=== PATIENT | male | born 1960 | race Hispanic/Latino ===

== ENCOUNTER 2018-04-06 01:51 | Inpatient (IN) | payer OTHER ==
[2018-04-06] MEDS ORDERED: NACL 0.9% 1000 ML 1,000 ML IV ONE ×2 (02:06→06:53)
[2018-04-06 02:20] LABS: Basophils # (Auto) 0.1 K/mm3 (0.0-0.1); Basophils % (Auto) 0.9 % (0.0-1.8); Eosinophils # (Auto) 0.2 K/mm3 (0.0-0.4); Eosinophils % (Auto) 1.7 % (0.0-4.3); Hematocrit 34.1 % (35.5-45.6); Hemoglobin 11.6 gm/dl (11.8-15.2); Lymphocytes # (Auto) 2.3 K/mm3 (1.2-5.4); Lymphocytes % (Auto) 19.5 % (13.4-35.0); Mean Corpuscular HGB Conc 34 % (32-34); Mean Corpuscular Hemoglobin 34 pg (28-32); Mean Corpuscular Volume 99 fl (84-94); Monocytes # (Auto) 0.9 K/mm3 (0.0-0.8); Monocytes % (Auto) 7.5 % (0.0-7.3); Platelet Count 244 K/mm3 (140-440); Red Blood Count 3.45 M/mm3 (3.65-5.03); Red Cell Distribution Width 13.7 % (13.2-15.2)
[2018-04-06 02:38] LABS: Albumin 3.7 g/dL (3.9-5)
--- NOTE | 2018-04-06 03:05 | Cat Scan Report ---
FINAL REPORT PROCEDURE: CT ABDOMEN PELVIS WO CON TECHNIQUE: Computerized axial tomography of the abdomen and pelvis was performed without intravenous contrast. This study is performed without intravascular contrast material and its sensitivity for abdominal and pelvic pathology, including neoplasms, inflammation, abscess, free fluid, thrombosis, arterial dissection and infarction, is reduced compared with a contrast enhanced study. HISTORY: abd pain epigastric pain thru to back COMPARISON: No prior studies are available for comparison. FINDINGS: Visualized lower thorax: No significant abnormality. Liver: Normal size and attenuation. Spleen: Normal size and attenuation. Gallbladder and biliary system: Normal. Pancreas: There is the peripancreatic edema indicating acute pancreatitis. There is peripancreatic adenopathy. There is no mass or abscess or pseudocyst.. Adrenals: Normal. Kidneys: There is a 2.3 centimeters cyst at the lower pole of the right kidney. There are no kidney stones. There is no hydronephrosis.. GI tract: There is no bowel obstruction, colitis or enteritis. There are diverticula of the sigmoid and left colon. The appendix is not identified.. Lymph nodes and mesentery: Normal. Vasculature: Normal. Bladder: Normal. Reproductive organs: Normal. Peritoneum: There is no ascites or free air, abscess or adenopathy. Musculoskeletal structures: No significant abnormality. Other: None. IMPRESSION: There is the peripancreatic edema indicating acute pancreatitis. There is peripancreatic adenopathy. There is no mass or abscess or pseudocyst.. There is a 2.3 centimeters cyst at the lower pole of the right kidney. There are no kidney stones. There is no hydronephrosis.. There is no bowel obstruction, colitis or enteritis. There are diverticula of the sigmoid and left colon. The appendix is not identified.. There is no ascites or free air, abscess or adenopathy. .
[2018-04-06 06:02] LABS: Bilirubin,Urine NEG (Negative); Blood,Urine NEG (Negative); Color,Urine Amber (Yellow); Hyaline Casts,Urine 7 /LPF
--- NOTE | 2018-04-06 06:49 | Emergency Department Report ---
ED Abdominal Pain HPI - General Chief Complaint: Abdominal Pain Stated Complaint: ABD PAIN Time Seen by Provider: 04/06/18 06:44 Source: patient Mode of arrival: Ambulatory Limitations: No Limitations - History of Present Illness Initial Comments: Patient is a 57-year-old male presents to emergency room with abdominal pain 4 days. Patient also complains of nausea and vomiting. Patient states she is not able to hold anything down. Patient states he is also having changes in his bowel frequency. Patient states he is constipated but had a bowel movement yesterday. Patient denies fever and chills. Patient denies chest pain shortness of breath. Patient states the abdominal pain is in his bilateral upper abdomen and is nonradiating. Patient states the pain is a 10 out of 10 Patient states he drinks alcohol daily MD Complaint: abdominal pain -: Sudden Location: LUQ, RUQ Radiation: none Migration to: no migration Severity: severe Severity scale (0 -10): 10 Quality: stabbing Consistency: constant Improves With: rest Worsens With: eating, vomiting, movement Associated Symptoms: nausea, vomiting, constipation. denies: diarrhea, fever, chills, dysuria, hematemesis, hematochezia, melena, hematuria, anorexia, syncope - Related Data Allergies Allergy/AdvReac Type Severity Reaction Status Date / Time No Known Allergies Allergy Unverified 08/21/14 12:00 ED Review of Systems ROS: Stated complaint: ABD PAIN Other details as noted in HPI Constitutional: denies: chills, fever Eyes: denies: eye pain, eye discharge, vision change ENT: denies: ear pain, throat pain Respiratory: denies: cough, shortness of breath, wheezing Cardiovascular: denies: chest pain, palpitations Endocrine: no symptoms reported Gastrointestinal: abdominal pain, nausea, vomiting, constipation. denies: diarrhea Genitourinary: denies: urgency, dysuria Musculoskeletal: denies: back pain, joint swelling, arthralgia Skin: denies: rash, lesions Neurological: denies: headache, weakness, paresthesias Psychiatric: denies: anxiety, depression Hematological/Lymphatic: denies: easy bleeding, easy bruising ED Past Medical Hx - Past Medical History Previous Medical History?: Yes Hx Hypertension: Yes Hx Diabetes: Yes Hx COPD: Yes Additional medical history: A-Fib, High CHO, Ilieus - Surgical History Past Surgical History?: Yes Hx Appendectomy: Yes Additional Surgical History: shoulder, elbow, foot - Social History Smoking Status: Current Every Day Smoker Substance Use Type: Alcohol ED Physical Exam - General Limitations: No Limitations General appearance: alert, in no apparent distress - Head Head exam: Present: atraumatic, normocephalic - Eye Eye exam: Present: normal appearance - ENT ENT exam: Present: mucous membranes moist - Neck Neck exam: Present: normal inspection - Respiratory Respiratory exam: Present: normal lung sounds bilaterally. Absent: respiratory distress - Cardiovascular Cardiovascular Exam: Present: regular rate, normal rhythm. Absent: systolic murmur, diastolic murmur, rubs, gallop - GI/Abdominal GI/Abdominal exam: Present: soft, tenderness (bilateral upper quadrant tenderness), normal bowel sounds - Rectal Rectal exam: Present: deferred - Extremities Exam Extremities exam: Present: normal inspection - Back Exam Back exam: Present: normal inspection - Neurological Exam Neurological exam: Present: alert, oriented X3 - Psychiatric Psychiatric exam: Present: normal affect, normal mood - Skin Skin exam: Present: warm, dry, intact, normal color. Absent: rash ED Course Vital Signs 04/06/18 04/06/18 02:00 09:53 Temperature 98.2 F 98.6 F Pulse Rate 111 H 100 H Respiratory 22 16 Rate Blood Pressure 136/89 Blood Pressure 123/87 [Left] O2 Sat by Pulse 96 100 Oximetry - Reevaluation(s) Reevaluation #1: Discussed all results with patient. Patient agrees with plan of care and admission. 04/06/18 07:11 - Consultations Consultation #1: Hospitalist consulted for admission. Hospitalist to admit patient. Bridge orders placed for hospitalist. Dr Aguilar to assume care. 04/06/18 07:08 ED Medical Decision Making - Lab Data Result diagrams: 04/06/18 02:10 04/06/18 02:10 - Radiology Data Radiology results: report reviewed PROCEDURE: CT ABDOMEN PELVIS WO CON TECHNIQUE: Computerized axial tomography of the abdomen and pelvis was performed without intravenous contrast. This study is performed without intravascular contrast material and its sensitivity for abdominal and pelvic pathology, including neoplasms, inflammation, abscess, free fluid, thrombosis, arterial dissection and infarction, is reduced compared with a contrast enhanced study. HISTORY: abd pain epigastric pain thru to back COMPARISON: No prior studies are available for comparison. FINDINGS: Visualized lower thorax: No significant abnormality. Liver: Normal size and attenuation. Spleen: Normal size and attenuation. Gallbladder and biliary system: Normal. Pancreas: There is the peripancreatic edema indicating acute pancreatitis. There is peripancreatic adenopathy. There is no mass or abscess or pseudocyst.. Adrenals: Normal. Kidneys: There is a 2.3 centimeters cyst at the lower pole of the right kidney. There are no kidney stones. There is no hydronephrosis.. GI tract: There is no bowel obstruction, colitis or enteritis. There are diverticula of the sigmoid and left colon. The appendix is not identified.. Lymph nodes and mesentery: Normal. Vasculature: Normal. Bladder: Normal. Reproductive organs: Normal. Peritoneum: There is no ascites or free air, abscess or adenopathy. Musculoskeletal structures: No significant abnormality. Other: None. IMPRESSION: There is the peripancreatic edema indicating acute pancreatitis. There is peripancreatic adenopathy. There is no mass or abscess or pseudocyst.. There is a 2.3 centimeters cyst at the lower pole of the right kidney. There are no kidney stones. There is no hydronephrosis.. There is no bowel obstruction, colitis or enteritis. There are diverticula of the sigmoid and left colon. The appendix is not identified.. There is no ascites or free air, abscess or adenopathy. . Transcribed By: CO Dictated By: MARIEL RAMOS MD Electronically Authenticated By: MARIEL RAMOS MD Signed Date/Time: 04/06/18 0304 - Medical Decision Making Patient is a 57-year-old gentleman presents to emergency room with intractable nausea vomiting and abdominal pain. Patient found by CT to have a acute pancreatitis. Patient to be admitted to the hospitalist service for further evaluation and treatment. As per patient, patient has an alcoholic drink every day. Tegretol is slightly secondary to alcohol. - Differential Diagnosis abdominal pain. Gastritis. pancreatitis. n/v Critical care attestation.: If time is entered above; I have spent that time in minutes in the direct care of this critically ill patient, excluding procedure time. ED Disposition Clinical Impression: Abdominal pain Qualifiers: Abdominal location: upper abdomen, unspecified Qualified Code(s): R10.10 - Upper abdominal pain, unspecified Acute pancreatitis Qualifiers: Pancreatitis type: alcohol induced Acute pancreatitis complication: unspecified Qualified Code(s): K85.20 - Alcohol induced acute pancreatitis without necrosis or infection Intractable nausea and vomiting Qualifiers: Vomiting type: unspecified Qualified Code(s): R11.2 - Nausea with vomiting, unspecified Disposition: 09 OP ADMIT IP TO THIS HOSP Is pt being admited?: Yes Does the pt Need Aspirin: No Condition: Serious Time of Disposition: 06:57
--- NOTE | 2018-04-06 07:21 | History and Physical Report ---
History of Present Illness Date of examination: 04/06/18 Date of admission: 04/06/18 Chief complaint: Abdominal pain History of present illness: Patient is a 57-year-old male with history of atrophy or fibrillation on eliquis , HTN, HLD, DM type 2 presents to emergency room with abdominal pain 4 days. along with nausea and vomiting. Patient states the abdominal pain is in his bilateral upper abdomen and is nonradiating. Patient states the pain is a 10 out of 10. Patient states he is not able to hold anything down. He admits to drinking vodka and beer daily. He states that he is also continue to smoke tobacco, but he is trying to quit. Patient denies fever and chills, chest pain shortness of breath. His symptom was progressively getting worse and he was unable to eat anything. He decided to come to ER for further evaluation. A CT scan of the abdomen and pelvis in the ER showed sinus for acute pancreatitis. He is getting admitted for further evaluation and management. Past medical History: h/o atrial fibrillation on eliquis, hypertension, diabetes mellitus type 2, hyperlipidemia, depression Past surgical History: s/p appendectomy Social History: Lives with family, + smoking, + drinking vodka and beer on daily basis. Denies any elicit drug abuse. Family History: Significant for father with alcoholic liver disease, mother had history of diabetes and heart failure. Review of System: Constitutional: no fever, no chills, no weight loss Ears, eyes, nose, mouth and throat: no nasal congestion, no nasal discharge, no sinus pressure, no vision change, no red eye. Neck: No neck pain or rigidity. Cardiovascular: No chest pain, no orthopnea, no palpitations, no leg swelling Respiratory: No shortness of breath, no cough, no congestion, no wheezing Gastrointestinal: + abdominal pain, + nausea, + vomiting Genitourinary : no dysuria, no hematuria Musculoskeletal: no joint swelling or muscle ache Integumentary: no rash, no pruritis Neurological: no parathesias, no numbness, no tingling Endocrine: no cold or heat intolerance, no polyuria or polydipsia Hematologic/Lymphatic: no easy bruising, no easy bleeding, no gland swelling Allergic/Immunologic: no urticaria, no angioedema. Medications and Allergies Allergies Allergy/AdvReac Type Severity Reaction Status Date / Time No Known Allergies Allergy Unverified 08/21/14 12:00 Active Meds: Active Medications Sodium Chloride (Nacl 0.9% 1000 Ml) 1,000 mls @ 999 mls/hr IV BOLUS ONE Stop: 04/06/18 07:53 Last Admin: 04/06/18 07:06 Dose: 999 mls/hr Exam - Constitutional Vitals: Temp Pulse Resp BP Pulse Ox 98.2 F 111 H 22 136/89 96 04/06/18 02:00 04/06/18 02:00 04/06/18 02:00 04/06/18 02:00 04/06/18 02:00 General appearance: Present: no acute distress, obese - EENT Eyes: Present: PERRL ENT: hearing intact, clear oral mucosa - Neck Neck: Present: supple, normal ROM - Respiratory Respiratory effort: normal Respiratory: bilateral: CTA - Cardiovascular Heart Sounds: Present: S1 & S2. Absent: rub, click - Extremities Extremities: pulses symmetrical, No edema Peripheral Pulses: within normal limits - Abdominal General gastrointestinal: Present: soft, non-distended, normal bowel sounds Localized gastrointestinal: tender: diffuse - Integumentary Integumentary: Present: clear, warm, dry - Musculoskeletal Musculoskeletal: gait normal, strength equal bilaterally - Psychiatric Psychiatric: appropriate mood/affect, intact judgment & insight - Neurologic Neurologic: CNII-XII intact, moves all extremities Results - Labs CBC & Chem 7: 04/06/18 02:10 04/06/18 02:10 Labs: Abnormal lab results 04/06/18 04/06/18 Range/Units 02:10 02:10 WBC 11.9 H (4.5-11.0) K/mm3 RBC 3.45 L (3.65-5.03) M/mm3 Hgb 11.6 L (11.8-15.2) gm/dl Hct 34.1 L (35.5-45.6) % MCV 99 H (84-94) fl MCH 34 H (28-32) pg [place] % (Auto) 7.5 H (0.0-7.3) % [place] # 0.9 H (0.0-0.8) K/mm3 Seg Neutrophils % 70.4 H (40.0-70.0) % Seg Neutrophils # 8.4 H (1.8-7.7) K/mm3 Sodium 125 L (137-145) mmol/L Chloride 87.5 L (98-107) mmol/L Carbon Dioxide 17 L (22-30) mmol/L BUN 21 H (9-20) mg/dL Creatinine 1.7 H (0.8-1.5) mg/dL Glucose 220 H (75-100) mg/dL Total Bilirubin 1.30 H (0.1-1.2) mg/dL AST 47 H (5-40) units/L Alkaline Phosphatase 251 H (35-129) units/L Albumin 3.7 L (3.9-5) g/dL Assessment and Plan Acute alcoholic pancreatitis Hyponatremia secondary to chronic alcohol ingestion Atrial fibrillation on and requests Alcohol abuse with dependency Tobacco Abuse Diabetes mellitus type 2 on oral hypoglycemic medications Hypertension, controlled with lisinopril Hyperlipidemia, on statin History of depression on Prozac - Admit the patient at medical unit - Continue aggressive IV fluid hydration, placed on alcohol withdrawal protocol - Continue to monitor serial BMP, resume home meds - SCD for DVT prophylaxis - Monitor blood glucose every 6 hours with sliding scale of insulin Radiological study: CT abdomen/pelvis: There is the peripancreatic edema indicating acute pancreatitis. There is peripancreatic adenopathy. There is no mass or abscess or pseudocyst.. There is a 2.3 centimeters cyst at the lower pole of the right kidney. There are no kidney stones. There is no hydronephrosis.. There is no bowel obstruction, colitis or enteritis. There are diverticula of the sigmoid and left colon. The appendix is not identified.. There is no ascites or free air, abscess or adenopathy.
[2018-04-06] MEDS ORDERED: DILAUDID IV ONE ×2 (07:25→07:27)
[2018-04-06] MEDS ORDERED: APRESOLINE IV PRN (07:27)
[2018-04-06] MEDS ORDERED: ZOFRAN IV PRN (07:27)
[2018-04-06] MEDS ORDERED: TYLENOL PO PRN (07:27)
[2018-04-06] MEDS ORDERED: ATIVAN IV PRN (07:44)
[2018-04-06] MEDS: D5NS 1,000 ML IV SCH ×2 (13:17→21:41)
[2018-04-06] MEDS: HumuLIN R SUB-Q SCH ×3 (13:18→17:54)
[2018-04-06] MEDS: ELIQUIS PO SCH (21:50)
[2018-04-06] MEDS ORDERED: LOVENOX SUB-Q SCH (22:00)
[2018-04-07] MEDS: HumuLIN R SUB-Q SCH ×5 (01:08→22:40)
[2018-04-07] MEDS: D5NS 1,000 ML IV SCH ×2 (05:44→13:12)
[2018-04-07 06:43] LABS: Basophils % (Auto) 0.5 % (0.0-1.8); Eosinophils # (Auto) 0.2 K/mm3 (0.0-0.4); Hemoglobin 10.9 gm/dl (11.8-15.2); Lymphocytes # (Auto) 1.4 K/mm3 (1.2-5.4); Lymphocytes % (Auto) 22.1 % (13.4-35.0); Mean Corpuscular HGB Conc 34 % (32-34); Mean Corpuscular Hemoglobin 34 pg (28-32); Mean Corpuscular Volume 98 fl (84-94); Monocytes # (Auto) 0.6 K/mm3 (0.0-0.8); Platelet Count 245 K/mm3 (140-440); Red Blood Count 3.25 M/mm3 (3.65-5.03); Red Cell Distribution Width 13.7 % (13.2-15.2)
[2018-04-07 07:17] LABS: Alanine Aminotransferase 34 units/L (7-56); Albumin 3.5 g/dL (3.9-5); BUN/Creatinine Ratio 13; Blood Urea Nitrogen 12 mg/dL (9-20); Calcium 9.4 mg/dL (8.4-10.2); Hemolysis Index 3
--- NOTE | 2018-04-07 08:09 | Progress Note ---
Assessment and Plan Assessment and plan: 57-year-old male with past medical history significant for alcohol abuse, A. fib on eliquis, diabetes mellitus presented to the emergency department complaining of upper abdominal pain, patient has been drinking alcohol, CT showed pancreatic edema suggestive of pancreatitis, elevated lipase level Acute pancreatitis - Was treated with IV fluids, bowel rest and pain control - Abdominal pain subsided, will start on liquid diet and advance as tolerated Alcohol abuse, alcohol withdrawal - On [facility] protocol - Nurse Practitioner Manager about cessation of alcohol A. fib - Continue eliquis Diabetes mellitus - Sliding-scale insulin Disposition - Continue inpatient care History Interval history: Patient was seen and evaluated this morning, abdominal pain subsided. Hospitalist Physical - Physical exam Narrative exam: Not in cardiopulmonary distress. The patient is obese. Vital signs as documented. Head exam is unremarkable. No scleral icterus . Neck is without jugular venous distension, thyromegaly, or carotid bruits. Lungs are clear to auscultation. Cardiac exam reveals regular rate and Rhythm. First and second heart sounds normal. No murmurs, rubs or gallops. Abdominal exam reveals soft nontender abdomen. Extremities are nonedematous and both femoral and pedal pulses are normal. FEATHER DUSTER WINDER: Alert and oriented 3. No focal weakness. - Constitutional Vitals: Temp Pulse Resp BP Pulse Ox 97.2 F L 102 H 18 111/33 97 04/07/18 06:12 04/07/18 06:12 04/07/18 06:12 04/07/18 06:12 04/07/18 06:12 General appearance: Present: no acute distress, obese Results - Labs CBC & Chem 7: 04/07/18 06:18 04/07/18 06:18 Labs: Laboratory Last Values WBC 6.3 K/mm3 (4.5-11.0) 04/07/18 06:18 RBC 3.25 M/mm3 (3.65-5.03) L 04/07/18 06:18 Hgb 10.9 gm/dl (11.8-15.2) L 04/07/18 06:18 Hct 32.0 % (35.5-45.6) L 04/07/18 06:18 MCV 98 fl (84-94) H 04/07/18 06:18 MCH 34 pg (28-32) H 04/07/18 06:18 MCHC 34 % (32-34) 04/07/18 06:18 RDW 13.7 % (13.2-15.2) 04/07/18 06:18 Plt Count 245 K/mm3 (140-440) 04/07/18 06:18 Lymph % (Auto) 22.1 % (13.4-35.0) 04/07/18 06:18 [place] % (Auto) 10.0 % (0.0-7.3) H 04/07/18 06:18 Eos % (Auto) 3.0 % (0.0-4.3) 04/07/18 06:18 Baso % (Auto) 0.5 % (0.0-1.8) 04/07/18 06:18 Lymph # 1.4 K/mm3 (1.2-5.4) 04/07/18 06:18 [place] # 0.6 K/mm3 (0.0-0.8) 04/07/18 06:18 Eos # 0.2 K/mm3 (0.0-0.4) 04/07/18 06:18 Baso # 0.0 K/mm3 (0.0-0.1) 04/07/18 06:18 Seg Neutrophils % 64.4 % (40.0-70.0) 04/07/18 06:18 Seg Neutrophils # 4.1 K/mm3 (1.8-7.7) 04/07/18 06:18 Sodium 136 mmol/L (137-145) L D 04/07/18 06:18 Potassium 4.2 mmol/L (3.6-5.0) 04/07/18 06:18 Chloride 98.9 mmol/L (98-107) 04/07/18 06:18 Carbon Dioxide 22 mmol/L (22-30) 04/07/18 06:18 Anion Gap 19 mmol/L 04/07/18 06:18 BUN 12 mg/dL (9-20) 04/07/18 06:18 Creatinine 0.9 mg/dL (0.8-1.5) 04/07/18 06:18 Estimated GFR > 60 ml/min 04/07/18 06:18 BUN/Creatinine Ratio 13 % 04/07/18 06:18 Glucose 171 mg/dL (75-100) H 04/07/18 06:18 POC Glucose 177 (70-105) H 04/07/18 00:47 Lactic Acid 1.00 mmol/L (0.7-2.0) 04/06/18 Unknown Calcium 9.4 mg/dL (8.4-10.2) 04/07/18 06:18 Phosphorus 3.40 mg/dL (2.5-4.5) 04/06/18 07:48 Magnesium 1.90 mg/dL (1.7-2.3) 04/06/18 07:48 Total Bilirubin 0.90 mg/dL (0.1-1.2) 04/07/18 06:18 AST 38 units/L (5-40) 04/07/18 06:18 ALT 34 units/L (7-56) 04/07/18 06:18 Alkaline Phosphatase 213 units/L (35-129) H 04/07/18 06:18 Total Protein 7.2 g/dL (6.3-8.2) 04/07/18 06:18 Albumin 3.5 g/dL (3.9-5) L 04/07/18 06:18 Albumin/Globulin Ratio 0.9 % 04/07/18 06:18 Lipase 381 units/L (13-60) H 04/06/18 Unknown Urine Color Rosalina (Yellow) 04/06/18 05:11 Urine Turbidity Slightly-cloudy (Clear) 04/06/18 05:11 Urine pH 5.0 (5.0-7.0) 04/06/18 05:11 Ur Specific [place] 1.022 (1.003-1.030) 04/06/18 05:11 Urine Protein 100 mg/dl mg/dL (Negative) 04/06/18 05:11 Urine Glucose (UA) >=500 mg/dL (Negative) 04/06/18 05:11 Urine Ketones Tr mg/dL (Negative) 04/06/18 05:11 Urine Blood Neg (Negative) 04/06/18 05:11 Urine Nitrite Neg (Negative) 04/06/18 05:11 Urine Bilirubin Neg (Negative) 04/06/18 05:11 Urine Urobilinogen 4.0 mg/dL (<2.0) 04/06/18 05:11 Ur Leukocyte Esterase Neg (Negative) 04/06/18 05:11 Urine WBC (Auto) 2.0 /HPF (0.0-6.0) 04/06/18 05:11 Urine RBC (Auto) 2.0 /HPF (0.0-6.0) 04/06/18 05:11 U Epithel Cells (Auto) < 1.0 /HPF (0-13.0) 04/06/18 05:11 Hyaline Casts 7 /LPF 04/06/18 05:11
[2018-04-07] MEDS: ELIQUIS PO SCH ×2 (12:28→21:04)
[2018-04-07] MEDS: PROzac PO SCH (12:29)
[2018-04-08] MEDS: D5NS 1,000 ML IV SCH (04:00)
[2018-04-08 07:24] VITALS: BP 146/88
[2018-04-08] MEDS: HumuLIN R SUB-Q SCH ×2 (08:56→12:47)
--- NOTE | 2018-04-08 10:36 | Discharge Summary ---
Providers - Providers Date of Admission: 04/06/18 07:09 Attending physician: ALEX BENAVIDEZ MD Primary care physician: CUBING MACHINE TENDER Hospitalization Reason for admission: Acute pancreatitis Condition: Serious Disposition: DC-01 TO HOME OR SELFCARE Time spent for discharge: 31 minutes - Discharge Diagnoses (1) Abdominal pain Status: Acute Qualifiers: Abdominal location: upper abdomen, unspecified Qualified Code(s): R10.10 - Upper abdominal pain, unspecified (2) Acute pancreatitis Status: Acute Qualifiers: Pancreatitis type: alcohol induced Acute pancreatitis complication: unspecified Qualified Code(s): K85.20 - Alcohol induced acute pancreatitis without necrosis or infection (3) Intractable nausea and vomiting Status: Acute Qualifiers: Vomiting type: unspecified Qualified Code(s): R11.2 - Nausea with vomiting , unspecified Core Measure Documentation - Palliative Care Palliative Care/ Comfort Measures: Not Applicable - Core Measures Any of the following diagnoses?: none Exam - Physical Exam Narrative exam: Not in cardiopulmonary distress. The patient is obese. Vital signs as documented. Head exam is unremarkable. No scleral icterus . Neck is without jugular venous distension, thyromegaly, or carotid bruits. Lungs are clear to auscultation. Cardiac exam reveals regular rate and Rhythm. First and second heart sounds normal. No murmurs, rubs or gallops. Abdominal exam reveals soft nontender abdomen. Extremities are nonedematous and both femoral and pedal pulses are normal. ANALYSIS DIRECTOR: Alert and oriented 3. No focal weakness. - Constitutional Vitals: Temp Pulse Resp BP Pulse Ox 97.5 F L 91 H 28 H 146/88 99 04/08/18 07:00 04/08/18 07:00 04/08/18 07:00 04/08/18 07:00 04/08/18 07:00 Plan Activity: no restrictions Weight Bearing Status: Full Weight Bearing Diet: low fat Additional Instructions: F/U at [facility] if no established clinic. Follow up with: PRIMARY MD WILLIE [Primary Care Provider] - 3-5 Days
[2018-04-08] MEDS: ELIQUIS PO SCH (11:32)
[2018-04-08] MEDS: PROzac PO SCH (11:33)
== END 2018-04-08 16:03 | disposition home or self-care (01) | DRG 439 ==
LOC: ED 01:51 → 3A 07:09
PROVIDERS: ADMIT Internal Medicine; ATTEND Internal Medicine
DX: K85.20 Alcohol induced acute pancreatitis without necrosis or infection (principal); E87.1 Hypo-osmolality and hyponatremia; I10 Essential (primary) hypertension; E11.9 Type 2 diabetes mellitus without complications; J44.9 Chronic obstructive pulmonary disease, unspecified; F17.200 Nicotine dependence, unspecified, uncomplicated; Z90.49 Acquired absence of other specified parts of digestive tract; E78.00 Pure hypercholesterolemia, unspecified; I48.91 Unspecified atrial fibrillation; Z83.3 Family history of diabetes mellitus; Z82.49 Family history of ischemic heart disease and other diseases of the circulatory system; Z84.89 Family history of other specified conditions; F10.20 Alcohol dependence, uncomplicated; Y90.9 Presence of alcohol in blood, level not specified; Z79.84 Long term (current) use of oral hypoglycemic drugs; F32.9 Major depressive disorder, single episode, unspecified; E78.5 Hyperlipidemia, unspecified
CPT/HCPCS: 36415; 74176; 80053; 81001; 82140; 82962; 83036; 83690; 83735; 84100; 85025; 96374; 99406; J1170; J1815; J7030; J7042

== ENCOUNTER 2019-03-29 12:24 | Inpatient (IN) | payer MEDICAID, MEDICARE, OTHER ==
[2019-03-29] MEDS ORDERED: NACL 0.9% 1000 ML 1,000 ML IV ONE (12:29)
[2019-03-29] MEDS ORDERED: MAGNESIUM SULFATE 2GM/50ML 2 GM/50 ML BAG IV ONE (12:29)
[2019-03-29] MEDS ORDERED: DUONEB *Not for PRN Use IH ONE (12:30)
[2019-03-29] MEDS ORDERED: MAXIPIME/NS 2 GM/100 ML 2 GM/100 ML BAG IV ONE (12:30)
--- NOTE | 2019-03-29 12:31 | Emergency Department Report ---
ED Shortness of Breath HPI - General Stated Complaint: PETRA/COPD Time Seen by Provider: 03/29/19 12:27 Source: patient, EMS Mode of arrival: Stretcher Limitations: No Limitations - History of Present Illness Initial Comments: Patient is a 58-year-old male that presents emergency room with complaints of shortness of breath. Patient states starting yesterday and are worsening. P atient states this became severe needed EMS. Patient states has history of COPD. Patient denies chest pain. Denies fever chills. Patient states she has a cough with sputum production. Patient states sputum is yellow. Report received from EMS: EMS states that the patient was initially 73% on room air and placed on CPAP. Patient was given Solu-Medrol IM and 10 mg of albuterol. After being placed on CPAP the patient's abdomen to 93%. MD Complaint: shortness of breath, cough -: Sudden Severity: severe Consistency: constant Improves With: oxygen, rest, bronchodilators Worsens With: exertion, coughing Known History Of: COPD Context: recent URI Associated Symptoms: cough, sputum production Treatments Prior to Arrival: oxygen, bronchodilator, other (medrol) - Related Data Home Oxygen Therapy: No Home Medications Medication Instructions Recorded Confirmed Last Taken No Known Home Medications [No 04/08/18 04/08/18 Unknown Reported Home Medications] Allergies Allergy/AdvReac Type Severity Reaction Status Date / Time No Known Allergies Allergy Unverified 08/21/14 12:00 ED Review of Systems ROS: Stated complaint: PETRA/COPD Other details as noted in HPI Constitutional: denies: chills, fever Eyes: denies: eye pain, eye discharge, vision change ENT: denies: ear pain, throat pain Respiratory: cough, shortness of breath, SOB with exertion, SOB at rest, wheezing Cardiovascular: denies: chest pain, palpitations Endocrine: no symptoms reported Gastrointestinal: denies: abdominal pain, nausea, diarrhea Genitourinary: denies: urgency, dysuria Musculoskeletal: denies: back pain, joint swelling, arthralgia Skin: denies: rash, lesions Neurological: denies: headache, weakness, paresthesias Psychiatric: denies: anxiety, depression Hematological/Lymphatic: denies: easy bleeding, easy bruising ED Past Medical Hx - Past Medical History Previous Medical History?: Yes Hx Hypertension: Yes Hx Congestive Heart Failure: No Hx Diabetes: Yes Hx Liver Disease: No Hx Renal Disease: No Hx Asthma: No Hx COPD: Yes Additional medical history: A-Fib, High CHO, Ilieus - Surgical History Past Surgical History?: Yes Hx Appendectomy: Yes Additional Surgical History: shoulder, elbow, foot - Family History Family history: no significant - Social History Smoking Status: Current Every Day Smoker Substance Use Type: Alcohol - Medications Home Medications: Home Medications Medication Instructions Recorded Confirmed Last Taken Type No Known Home Medications [No 04/08/18 04/08/18 Unknown History Reported Home Medications] ED Physical Exam - General Limitations: No Limitations General appearance: alert, in distress - Head Head exam: Present: atraumatic, normocephalic - Eye Eye exam: Present: normal appearance - ENT ENT exam: Present: mucous membranes moist - Neck Neck exam: Present: normal inspection - Respiratory Respiratory exam: Present: respiratory distress, wheezes, accessory muscle use, decreased breath sounds - Cardiovascular Cardiovascular Exam: Present: regular rate, normal rhythm. Absent: systolic murmur, diastolic murmur, rubs, gallop - GI/Abdominal GI/Abdominal exam: Present: soft, normal bowel sounds - Rectal Rectal exam: Present: deferred - Extremities Exam Extremities exam: Present: normal inspection - Back Exam Back exam: Present: normal inspection - Neurological Exam Neurological exam: Present: alert, oriented X3 - Psychiatric Psychiatric exam: Present: normal affect, normal mood - Skin Skin exam: Present: warm, dry, intact, normal color. Absent: rash ED Course Vital Signs 03/29/19 03/29/19 03/29/19 12:40 13:25 14:14 Temperature 97.8 F Pulse Rate 110 H 114 H Pulse Rate [ 106 H Anterior Bilateral Throughout] Respiratory 30 H 30 H Rate Respiratory 20 Rate [Anterior Bilateral Throughout] Blood Pressure 104/64 Blood Pressure 102/62 [Left] O2 Sat by Pulse 92 98 Oximetry 03/29/19 03/29/19 14:43 15:39 Temperature Pulse Rate 105 H 101 H Pulse Rate [ Anterior Bilateral Throughout] Respiratory 25 H 17 Rate Respiratory Rate [Anterior Bilateral Throughout] Blood Pressure 130/106 Blood Pressure 128/107 [Left] O2 Sat by Pulse 97 100 Oximetry - Reevaluation(s) Reevaluation #1: Initial evaluation done. Patient is currently on BiPAP by EMS, and given albuterol and Solu-Medrol. Patient is still wheezing was an increased work of breathing. Patient was placed on BiPAP here and given mag. 03/29/19 12:28 Reevaluation #2: Patient work to breathe has improved. Patient's wheezes have improved. 03/29/19 13:10 Patient removed his BiPAP and his saturations in the 80s. Patient's increased work of breathing. I advised patient to leave the BiPAP on 03/29/19 13:55 Reevaluation #3: I discussed all results with patient. Patient to be admitted to the ICU. Patient agrees with plan. Admission. Patient was admitted to the hospitalist service. Patient is still on BiPAP and his work of breathing has improved. Patient oxygen saturation is better. 03/29/19 15:14 - Consultations Consultation #1: [place] physician english composition instructor paged. 03/29/19 14:13 [place] physician english composition instructor states to keep the patient here due to patient's unstable to be transferred at this time. 03/29/19 14:17 Consultation #2: Hospital was consulted for admission. Hospitalist admit the patient. Bridge orders placed. 03/29/19 14:17 Consultation #3: Nephrology paged 03/29/19 14:18 I discussed case with nephrology and Dr Olivarez agrees with plan of care and admission. Nephrology states they will come see him 03/29/19 14:23 ED Medical Decision Making - Lab Data Result diagrams: 03/29/19 13:18 03/29/19 13:18 - EKG Data -: EKG Interpreted by Me EKG shows normal: sinus rhythm, axis, intervals, QRS complexes, ST-T waves Rate: tachycardia - Radiology Data Radiology results: image reviewed interpreted by me: No acute findings on chest x-ray - Medical Decision Making Patient is a 58-year-old male presents emergent for shortness of breath. Patient found COPD exacerbation. Patient had labs done and were consistent with acute renal failure. Nephrology consulted. Patient also found to have hyperkalemia and given hyperkalemia protocol. Patient shortness of breath or respiratory distress to improve with BiPAP and DuoNeb. Patient given antibi otics. Patient given Solu-Medrol and albuterol and placed on BiPAP by EMS prior to arrival. Patient found to be anemic. Patient admitted to the hospitalist service and to the ICU. - Differential Diagnosis shortness of breath. Respiratory distress. COPD exacerbation. Wheezing. Critical Care Time: Yes Critical care attestation.: If time is entered above; I have spent that time in minutes in the direct care of this critically ill patient, excluding procedure time. Critical Care Time: 45 minutes ED Disposition Clinical Impression: SOB (shortness of breath), Respiratory distress, Hypoxia, COPD exacerbation, Hyperkalemia Renal failure Qualifiers: Renal failure chronicity: acute Acute renal failure type: unspecified Qualified Code(s): N17.9 - Acute kidney failure, unspecified Disposition: DC-09 OP ADMIT IP TO THIS HOSP Is pt being admited?: Yes Does the pt Need Aspirin: No Condition: Critical Time of Disposition: 14:30
--- NOTE | 2019-03-29 13:02 | XRay Report ---
CHEST 1 VIEW INDICATION: Dyspnea. COMPARISON: None FINDINGS: Support devices: None. Heart: Within normal limits. Lungs/Pleura: No acute air space or interstitial disease. Additional findings: None. IMPRESSION: No acute findings. Signer Name: Alonzo Dawson Jr, MD Signed: 03/29/2019 12:58 PM Workstation Name: [id number]
[2019-03-29 13:36] LABS: Basophils # (Auto) 0.1 K/mm3 (0.0-0.1); Basophils % (Auto) 0.7 % (0.0-1.8); Eosinophils % (Auto) 0.6 % (0.0-4.3); Hematocrit 33.2 % (35.5-45.6); Hemoglobin 10.6 gm/dl (11.8-15.2); Lymphocytes # (Auto) 0.8 K/mm3 (1.2-5.4); Lymphocytes % (Auto) 9.4 % (13.4-35.0); Mean Corpuscular HGB Conc 32 % (32-34); Mean Corpuscular Volume 103 fl (84-94); Monocytes # (Auto) 0.7 K/mm3 (0.0-0.8); Monocytes % (Auto) 7.8 % (0.0-7.3); Platelet Count 274 K/mm3 (140-440); Red Blood Count 3.24 M/mm3 (3.65-5.03); Red Cell Distribution Width 15.5 % (13.2-15.2)
[2019-03-29 13:59] LABS: Creatine Kinase MB 17.6 ng/mL (0.0-4.0)
[2019-03-29 14:00] LABS: Albumin 3.9 g/dL (3.9-5); Calcium 8.7 mg/dL (8.4-10.2)
[2019-03-29] MEDS ORDERED: KIONEX PO ONE (14:08)
[2019-03-29] MEDS ORDERED: HumuLIN R IV ONE (14:08)
[2019-03-29] MEDS ORDERED: D50W (25GM) Syringe IV ONE (15:06)
[2019-03-29] MEDS ORDERED: D50W (25GM) Vial IV ONE (15:08)
[2019-03-29] MEDS ORDERED: CALCIUM CHLORIDE 1,000 MG in NACL 0.9% 100 ML IV ONE (15:08)
--- NOTE | 2019-03-29 15:16 | Consultation ---
History of Present Illness - Reason for Consult Consult date: 03/29/19 acute renal failure - History of Present Illness This is a 58 year old male who presents to the E.R with a chief complaint of shortness of breath that started yesterday and a productive cough with yellow sputum. On evaluation, patient was found to be Hypoxic by EMS with oxygen levels in the 70's. Patient was placed on Bipap. Pertinent labs revealed an elevated serum creatinine of 8.6 and an elevated potassium level of 6.6. Patient denies prior history of renal disease. Serum creatinine 04/07/18 was 0.9. Patient has history of Hypertension, DM, COPD and Afib. We are being consulted for management of this patient's Acute Renal Failure. Past History Past Medical History: atrial fib, COPD, diabetes, hypertension Past Surgical History: appendectomy, Other (elbow surgery) Social history: no significant social history Family history: no significant family history Medications and Allergies Allergies Allergy/AdvReac Type Severity Reaction Status Date / Time No Known Allergies Allergy Unverified 08/21/14 12:00 Home Medications Medication Instructions Recorded Confirmed Last Taken Type ALBUTEROL Inhaler (OR & NICU) 2 puff IH QID PRN 03/29/19 03/29/19 03/29/19 History [Proair] Apixaban [Eliquis] 5 mg PO BID 03/29/19 03/29/19 03/27/19 History AtorvaSTATin [Lipitor] 40 mg PO DAILY 03/29/19 03/29/19 03/27/19 History FLUoxetine HCL [Prozac] 10 mg PO QDAY 03/29/19 03/29/19 03/27/19 History Glimepiride [Amaryl] 2 mg PO BID 03/29/19 03/29/19 03/27/19 History Lisinopril [Zestril] 5 mg PO QDAY 03/29/19 03/29/19 03/27/19 History Metformin HCl [metFORMIN] 1,000 mg PO BID 03/29/19 03/29/19 03/29/19 History Pantoprazole [Protonix] 40 mg PO QDAY 03/29/19 03/29/19 03/27/19 History Tiotropium [place] [Spiriva 4 gm IH QDAY 03/29/19 03/29/19 Unknown History Respimat] Active Meds: Active Medications Calcium Chloride 1,000 mg/ (Sodium Chloride) 110 mls @ 660 mls/hr IV ONCE ONE Stop: 03/29/19 15:17 Last Admin: 03/29/19 14:49 Dose: 660 mls/hr Documented by: Review of Systems Constitutional: fatigue, no weight loss, no weight gain, no fever, no chills, no sweats Ears, nose, mouth and throat: no ear pain, no ear discharge, no tinnitis, no decreased hearing, no nose pain, no nasal congestion, no nasal discharge Cardiovascular: shortness of breath, no chest pain, no orthopnea, no palpitations, no syncope, no lightheadedness Respiratory: cough with sputum, shortness of breath, no hemoptysis, no congestion, no wheezing Gastrointestinal: no abdominal pain, no nausea, no vomiting, no diarrhea, no co nstipation Genitourinary Male: no dysuria, no hematuria, no flank pain, no discharge, no urinary frequency, no urinary hesitancy Rectal: no pain, no incontinence, no bleeding, no itching Musculoskeletal: no neck stiffness, no neck pain, no shooting arm pain, no arm numbness/tingling, no low back pain, no shooting leg pain Integumentary: no rash, no pruritis, no redness, no sores, no wounds, no jau ndice Neurological: no head injury, no transient paralysis, no paralysis, no weakness, no parathesias, no numbness, no tingling, no seizures Psychiatric: no anxiety, no memory loss, no change in sleep habits, no sleep disturbances, no insomnia, no hypersomnia Endocrine: no cold intolerance, no heat intolerance, no polyphagia, no excessive thirst, no polydipsia, no polyuria Exam - Vital Signs Vital signs: Vital Signs Pulse Resp BP Pulse Ox 110 H 30 H 102/62 97 03/29/19 12:40 03/29/19 12:40 03/29/19 12:40 03/29/19 12:40 - General Appearance General appearance: well-developed, obese, fatigue EENT: ATNC, PERRL, hearing intact, vision intact Neck: Present: neck supple, trachea midline Respiratory: Decreased Breath Sounds Heart: S1S2 Gastrointestinal: Present: normoactive bowel sounds Integumentary: warm and dry Neurologic: alert and oriented x3 Musculoskeletal: Present: other (mild edema) Results - Lab Results 03/29/19 13:18 03/29/19 13:18 Most recent lab results Calcium 8.7 mg/dL (8.4-10.2) 03/29/19 13:18 Assessment and Plan Assessment/Plan: Acute Renal Failure secondary to Prerenal vs ATN from Hypotension r/o obstruction: Hyperkalemia: Acidosis: COPD: -Renal function reviewed. Serum creatinine 8.6 today. Serum creatinine on 04/07 was 0.9. -Obtain renal ultrasound to r/o obstruction -Obtain urine lytes and eosinophils, further work-up pending results of protein labs -Hyperkalemia- received anti-potassium coctail and Kayexalate -CXR- showed no acute findings -Start IVF with D5W in 150 meq of Sodium Bicarbonate@ 75ml/hr -Obtain venous ph -Obtain daily weights -Monitor I/O's -Avoid nephrotoxic agents -No acute indication for HD at this time -Will monitor renal function closely
[2019-03-29] MEDS ORDERED: NACL 0.9% 1000 ML 1,000 ML ONE (15:21)
[2019-03-29] MEDS ORDERED: MAXIPIME/NS 1 GM/100 ML 1 GM/100 ML BAG IV ONE (15:27)
[2019-03-29] MEDS: SODIUM BICARBONATE 150 MEQ in D5W 1,000 ML IV SCH (17:10)
[2019-03-29] MEDS ORDERED: SOLU-Medrol IV ONE (18:50)
[2019-03-29] MEDS ORDERED: SOLU-Medrol ONE (18:52)
[2019-03-29 21:01] LABS: Hepatitis B Surface Antigen Non-Reactive (Negative); Hepatitis C Virus Antibody Non-Reactive (NonReactive)
[2019-03-29] MEDS ORDERED: ZOFRAN IV PRN (22:13)
[2019-03-29] MEDS ORDERED: IBUPROFEN PO PRN (22:13)
[2019-03-29] MEDS ORDERED: PROVENTIL IH PRN (22:15)
[2019-03-29] MEDS: PEPCID IV SCH (23:00)
[2019-03-29] MEDS ORDERED: CALCIUM GLUCONATE 2,000 MG in NACL 0.9% 100 ML IV ONE (23:00)
[2019-03-29] MEDS ORDERED: LEVAQUIN 750MG/150ML 750 MG/150 ML BAG IV ONE (23:00)
--- NOTE | 2019-03-29 23:01 | History and Physical Report ---
CHIEF COMPLAINT: Severe shortness of breath since yesterday. HISTORY OF PRESENT ILLNESS: A 58-year-old male with history of acute pancreatitis in the past and last year, hypertension, diabetes, COPD and atrial fibrillation, comes in for increasing shortness of breath since yesterday associated with severe wheezing. The patient also has cough productive of sputum, which is also yellow in color. When the EMS arrived, the patient's saturations were 73% on room air and was placed on CPAP and was given Solu-Medrol with some improvement. The patient continued to be hypoxic in the Emergency Room. The patient was given nebulizer treatments and CPAP with this oxygen levels improved to 93%. The patient is wheezing. No fever or chills. No known history of kidney failure. The patient's last BUN and creatinine in 03/2018 was normal 12 and 0.9. The patient does not see any kidney physician. No recent travel. The patient continues to smoke. PAST MEDICAL HISTORY: Significant for hypertension, COPD, atrial fibrillation, ileus, acute pancreatitis, which has resolved. Alcohol dependence in the past. FAMILY HISTORY: Hypertension. SOCIAL HISTORY: Current everyday smoker. PAST SURGICAL HISTORY: Shoulder surgery, elbow surgery and foot surgery. Appendectomy in the past. REVIEW OF SYSTEMS: Significant for severe shortness of breath and wheezing and low oxygen saturations. Otherwise, review of systems negative. PHYSICAL EXAMINATION: GENERAL: Late middle-aged male, cooperative during examination, in severe respiratory distress. VITAL SIGNS: Blood pressure is 120/51, temperature is 98.7, pulse is 108 and respirations are 25. HEENT: Unremarkable. Pupils are equal and reactive. NECK: Supple, no lymphadenopathy, no thyromegaly. LUNGS: Diminished air entry and decreased air entry bilaterally. Bilateral rhonchi present, inspiratory and expiratory. CARDIOVASCULAR: S1, S2 heard. No gallop, no murmur, no rub. Apical impulse in left fifth intercostal space and midclavicular line. ABDOMEN: Soft and benign. No hepatosplenomegaly. No guarding, no rigidity. Hernial orifices are normal. EXTREMITIES: Good pedal pulses. No pedal edema. CENTRAL NERVOUS SYSTEM: Alert and oriented x 4, nonfocal exam. SKIN: Normal. LABORATORY DATA: White count is 8600, H and H is 10.6 and 33.2 and platelet count is 274,000. ABG significant for pH of 7.122, pCO2 of 45.4, pO2 of 96, bicarbonate of 14.8 and O2 sats are 94%. Sodium is 132, potassium is 6.6, BUN and creatinine is 73 and 8.6, alkaline phosphatase is 136, creatinine kinase is 2408. CK is 17.6. Hepatitis profile is nonreactive. Abdominal CAT scan is done in 2018 shows acute pancreatitis. Electrocardiogram shows sinus tachycardia, heart rate of 107 per minute. No acute ST-T wave changes. Chest x-ray shows no acute findings. ASSESSMENT AND PLAN: 1. Acute respiratory failure. The patient is on CPAP. DuoNebs round the clock and albuterol p.r.n. Also, Pulmicort, and budesonide. IV Solu-Medrol 125 q. 8 hours and IV Levaquin q. 48 hours because of increased creatinine. Intubation if necessary. Manager Support/pulmonary consult requested. Renal consult requested. 2. Chronic obstructive pulmonary disease exacerbation. The patient continues to smoke, IV Solu-Medrol, DuoNeb and IV antibiotics started. The patient is on CPAP. Intubation if necessary. 3. Acute kidney injury. The patient's baseline creatinine is 0.9 one year ago. No intervening labs. Now, the patient presents with a high creatinine of around 8.6 and BUN of 73. Potassium was 6.6. The patient has acute kidney injury, etiology unclear. IV fluids and Nephrology consult requested. 4. Hyperkalemia, treated with Kayexalate, calcium gluconate, IV insulin and D50W and sodium bicarbonate. 5. Type 2 diabetes, coverage for now. Rhabdomyolysis, mild. IV fluids for now. Hepatitis profile negative. 6. Deep venous thrombosis prophylaxis, heparin 5000 q. 12 hours. Critical care time is 40 minutes. CRITICAL CARE STATEMENT: The high probability of a clinically significant sudden or life-threatening deterioration of the pulmonary, cardiac, renal systems required my full and direct attention, intervention, and personal management. The aggregate critical care time was 40 minutes. This time is in addition to time spent performing reported procedures, but includes the following, data review and interpretation, the patient assessment and monitoring of vital signs, documentation, medication orders and management. JOB# [id number] CLAY/MARLO HARO
[2019-03-30] MEDS ORDERED: LEVAQUIN 750MG/150ML 750 MG/150 ML BAG IV ONE (04:00)
[2019-03-30] MEDS: SOLU-Medrol IV SCH ×4 (06:00→20:54)
[2019-03-30] MEDS: DUONEB *Not for PRN Use IH SCH ×4 (07:45→20:01)
[2019-03-30] MEDS: SODIUM BICARBONATE 150 MEQ in D5W 1,000 ML IV SCH ×2 (09:00→23:15)
[2019-03-30] MEDS: PEPCID IV SCH ×2 (09:57→21:04)
[2019-03-30] MEDS: SODIUM CHLORIDE FLUSH SYRINGE 10 ML IV SCH ×2 (10:00→21:04)
--- NOTE | 2019-03-30 10:08 | Ultrasound Report ---
ULTRASOUND RENAL INDICATION: renal failure. COMPARISON: No relevant prior imaging study available. FINDINGS: RIGHT KIDNEY: Size: 12.4 cm. Echogenicity: Normal. Cortical thickness: Normal. Hydronephrosis: None. Cyst or mass: None. Stones: None. LEFT KIDNEY: Size: 10.8 cm. Echogenicity: Normal. Cortical thickness: Normal. Hydronephrosis: None. Cyst or mass: None. Stones: None. Urinary bladder appears within normal limits Free Fluid: None. Additional Findings: None. IMPRESSION 1. No acute sonographic abnormality of the kidneys. Signer Name: Alex Lopez MD Signed: 03/30/2019 10:03 AM Workstation Name: [id number]
[2019-03-30 10:31] LABS: Basophils % (Auto) 0.3 % (0.0-1.8); Eosinophils % (Auto) 0.5 % (0.0-4.3); Hematocrit 31.8 % (35.5-45.6); Hemoglobin 10.5 gm/dl (11.8-15.2); Lymphocytes # (Auto) 0.5 K/mm3 (1.2-5.4); Lymphocytes % (Auto) 8.1 % (13.4-35.0); Mean Corpuscular HGB Conc 33 % (32-34); Mean Corpuscular Volume 100 fl (84-94); Monocytes # (Auto) 0.2 K/mm3 (0.0-0.8); Monocytes % (Auto) 3.1 % (0.0-7.3); Platelet Count 240 K/mm3 (140-440); Red Blood Count 3.17 M/mm3 (3.65-5.03); Red Cell Distribution Width 15.1 % (13.2-15.2)
[2019-03-30 10:35] LABS: Bilirubin,Urine NEG (Negative); Blood,Urine SM (Negative); Color,Urine Yellow (Yellow); Mucus,Urine FEW /HPF; Protein,Urine <15 mg/dL mg/dL (Negative); Urobilinogen,Urine < 2.0 mg/dL (<2.0)
[2019-03-30 10:43] LABS: Benzodiazepines Screen,Urine PRESUMPTIVE NEGATIVE; Cannabinoid Screen,Urine PRESUMPTIVE NEGATIVE; Cocaine Screen,Urine PRESUMPTIVE NEGATIVE; Methadone Screen,Urine PRESUMPTIVE NEGATIVE; Opiate Screen,Urine PRESUMPTIVE NEGATIVE
[2019-03-30 10:44] LABS: Calcium 9.2 mg/dL (8.4-10.2)
[2019-03-30 10:47] LABS: Creatinine,Urine 230.8 mg/dL (0.1-20.0)
[2019-03-30 10:48] LABS: Creatinine,Urine 227.1 mg/dL (0.1-20.0); Protein/Creatinine Ratio,Urine 0.14
[2019-03-30] MEDS ORDERED: KIONEX PO NR (10:55)
[2019-03-30] MEDS ORDERED: CALCIUM GLUCONATE 2,000 MG in NACL 0.9% 100 ML IV ONE (10:55)
[2019-03-30 10:59] LABS: Amphetamine Screen,Urine PRESUMPTIVE POSITIVE
--- NOTE | 2019-03-30 12:21 | Consultation ---
History of Present Illness Reason for consult: dyspnea, COPD History of present illness: This is a 58 yo male w history of COPD HUMA followed by Martinez, who comes in w sob. He reports that he has had a progressive worsening of his symptoms associated w productive cough. He is not o2 dependent. He reports that he takes combivent as rescue and spiriva daily. He also reports a hx of HUMA but has not been using cpap because he is claustrophobic He reports that he has frequent exacerbations, treated as outpt. No reports of intubation He reorts weakness which has been ongoing for a few yrs Past History Past Medical History: atrial fib, COPD, diabetes, hypertension Past Surgical History: appendectomy, Other (elbow surgery) Social history: no significant social history Family history: no significant family history Medications and Allergies Allergies Allergy/AdvReac Type Severity Reaction Status Date / Time No Known Allergies Allergy Unverified 08/21/14 12:00 Home Medications Medication Instructions Recorded Confirmed Last Taken Type ALBUTEROL Inhaler (OR & NICU) 2 puff IH QID PRN 03/29/19 03/29/19 03/29/19 His tory [Proair] Apixaban [Eliquis] 5 mg PO BID 03/29/19 03/29/19 03/27/19 History AtorvaSTATin [Lipitor] 40 mg PO DAILY 03/29/19 03/29/19 03/27/19 History FLUoxetine HCL [Prozac] 10 mg PO QDAY 03/29/19 03/29/19 03/27/19 History Glimepiride [Amaryl] 2 mg PO BID 03/29/19 03/29/19 03/27/19 History Lisinopril [Zestril] 5 mg PO QDAY 03/29/19 03/29/19 03/27/19 History Metformin HCl [metFORMIN] 1,000 mg PO BID 03/29/19 03/29/19 03/29/19 History Pantoprazole [Protonix] 40 mg PO QDAY 03/29/19 03/29/19 03/27/19 History Tiotropium [place] [Spiriva 4 gm IH QDAY 03/29/19 03/29/19 Unknown History Respimat] Active Meds: Active Medications Acetaminophen (Tylenol) 650 mg PO Q4H PRN PRN Reason: Pain MILD(1-3)/Fever >100.5/ARIAS Albuterol (Proventil) 2.5 mg IH Q4HRT PRN PRN Reason: Shortness Of Breath Albuterol/Ipratropium (Duoneb *Not For Prn Use*) 1 ampul IH QIDRT [facility] Last Admin: 03/30/19 07:45 Dose: 1 ampul Documented by: Famotidine (Pepcid) 10 mg IV BID [facility] Last Admin: 03/30/19 09:57 Dose: 10 mg Documented by: Hydromorphone HCl (Dilaudid) 0.5 mg IV Q3H PRN PRN Reason: Pain , Severe (7-10) Last Admin: 03/30/19 00:00 Dose: 0.5 mg Documented by: Sodium Bicarbonate 150 meq/ (Dextrose) 1,150 mls @ 75 mls/hr IV DIRECT [facility] Last Infusion: 03/30/19 02:45 Dose: Infused Documented by: Levofloxacin/Dextrose (Levaquin 500mg/100ml) 500 mg in 100 mls @ 100 mls/hr IV Q48H [facility] Methylprednisolone Sodium Succinate (Solu-Medrol) 125 mg IV Q8HR [facility] Last Admin: 03/30/19 00:00 Dose: 125 mg Documented by: Metoclopramide HCl (Reglan) 5 mg IV Q6H PRN PRN Reason: Nausea And Vomiting Ondansetron HCl (Zofran) 4 mg IV Q8H PRN PRN Reason: Nausea And Vomiting Sodium Chloride (Sodium Chloride Flush Syringe 10 Ml) 10 ml IV BID [facility] Last Admin: 03/30/19 10:00 Dose: 10 ml Documented by: Sodium Chloride (Sodium Chloride Flush Syringe 10 Ml) 10 ml IV PRN PRN PRN Reason: LINE FLUSH Sodium Polystyrene Sulfonate (Kionex) 60 gm PO ONCE NR Stop: 03/30/19 12:55 Last Admin: 03/30/19 11:59 Dose: 60 gm Documented by: Review of Systems Ears, nose, mouth and throat: nasal congestion, nasal discharge Respiratory: cough with sputum, shortness of breath, dyspnea on exertion, congestion, wheezing, snoring, sleep apnea, respiratory infections Musculoskeletal: morning stiffness, arthritis, other (weakness- generalized) Physical Examination Vital signs: Vital Signs Pulse Resp BP Pulse Ox 110 H 30 H 102/62 97 03/29/19 12:40 03/29/19 12:40 03/29/19 12:40 03/29/19 12:40 General appearance: no acute distress, other (obesed) Eyes: non-icteric ENT: oropharynx moist Neck: supple Ascultation: Bilateral: wheezes Percussion: Bilateral: not dull Cardiovascular: regular rate and rhythm Gastrointestinal: normoactive bowel sounds, soft, non-distended, other (obese) Integumentary: normal Extremities: no cyanosis non-focal exam mood appropriate Results - Laboratory Findings CBC and BMP: 03/30/19 10:12 03/30/19 10:12 ABG POC ABG pH 7.143 (7.35-7.45) L 03/30/19 05:58 POC ABG pCO2 50.5 (35-45) H 03/30/19 05:58 POC ABG pO2 159 (80-105) H 03/30/19 05:58 POC ABG HCO3 17.3 (22-26 mml/L) 03/30/19 05:58 POC ABG Total CO2 19 (23-27mmol/L) 03/30/19 05:58 POC ABG O2 Sat 99 03/30/19 05:58 Abnormal lab findings: Abnormal Labs 03/29/19 03/29/19 03/29/19 13:18 13:18 18:22 RBC 3.24 L Hgb 10.6 L Hct 33.2 L MCV 103 H MCH 33 H RDW 15.5 H Lymph % (Auto) 9.4 L [place] % (Auto) 7.8 H Lymph # 0.8 L Seg Neutrophils % 81.5 H POC ABG pH 7.122 L POC ABG pCO2 45.4 H POC ABG pO2 Sodium 132 L Potassium 6.6 H* Chloride 94.9 L Carbon Dioxide 14 L BUN 73 H Creatinine 8.6 H Glucose POC Glucose Hemoglobin A1c Phosphorus AST 48 H Alkaline Phosphatase 136 H Total Creatine Kinase 2408 H CK-MB (CK-2) 17.6 H Urine Creatinine Urine Total Protein 03/29/19 03/30/19 03/30/19 23:37 05:58 10:00 RBC Hgb Hct MCV MCH RDW Lymph % (Auto) [place] % (Auto) Lymph # Seg Neutrophils % POC ABG pH 7.143 L POC ABG pCO2 50.5 H POC ABG pO2 159 H Sodium Potassium Chloride Carbon Dioxide BUN Creatinine Glucose POC Glucose Hemoglobin A1c 6.4 H Phosphorus AST Alkaline Phosphatase Total Creatine Kinase CK-MB (CK-2) Urine Creatinine 227.1 H Urine Total Protein 31 H 03/30/19 03/30/19 03/30/19 10:00 10:12 10:12 RBC 3.17 L Hgb 10.5 L Hct 31.8 L MCV 100 H MCH 33 H RDW Lymph % (Auto) 8.1 L [place] % (Auto) Lymph # 0.5 L Seg Neutrophils % 88.0 H POC ABG pH POC ABG pCO2 POC ABG pO2 Sodium 132 L Potassium 6.6 H* Chloride 91.9 L Carbon Dioxide 19 L BUN 89 H Creatinine 7.2 H Glucose 302 H POC Glucose Hemoglobin A1c Phosphorus 7.50 H AST Alkaline Phosphatase Total Creatine Kinase CK-MB (CK-2) Urine Creatinine 230.8 H Urine Total Protein 32 H 03/30/19 11:42 RBC Hgb Hct MCV MCH RDW Lymph % (Auto) [place] % (Auto) Lymph # Seg Neutrophils % POC ABG pH POC ABG pCO2 POC ABG pO2 Sodium Potassium Chloride Carbon Dioxide BUN Creatinine Glucose POC Glucose 275 H Hemoglobin A1c Phosphorus AST Alkaline Phosphatase Total Creatine Kinase CK-MB (CK-2) Urine Creatinine Urine Total Protein - Diagnostic Findings Chest x-ray: report reviewed, image reviewed Assessment and Plan - Patient Problems (1) HUMA on CPAP Current Visit: Yes Status: Acute (2) HUMA treated with BiPAP Current Visit: Yes Status: Acute (3) Acute bronchitis Current Visit: Yes Status: Acute (4) COPD exacerbation Current Visit: Yes Status: Acute (5) Hyperkalemia Current Visit: Yes Status: Acute (6) Hypoxia Current Visit: Yes Status: Acute (7) Renal failure Current Visit: Yes Status: Acute Qualifiers: Renal failure chronicity: acute Acute renal failure type: unspecified Qualified Code(s): N17.9 - Acute kidney failure, unspecified (8) SOB (shortness of breath) Current Visit: Yes Status: Acute (9) Obesity due to excess calories with serious comorbidity Current Visit: Yes Status: Acute (10) Acute respiratory failure Current Visit: Yes Status: Acute (11) Acute respiratory acidosis Current Visit: Yes Status: Acute
--- NOTE | 2019-03-30 12:57 | Progress Note ---
Assessment and Plan Acute Renal Failure secondary to Prerenal vs ATN from Hypotension, no obstruction: Hyperkalemia: High Anion Gap Metabolic Acidosis: Hyperphosphatemia COPD Exacerbation HUMA -Renal function reviewed, SCr level was 7.2 today, yesterday's SCr level was 8.6 -No acute indication for initiation of HD today, but if no significant improvement in renal function, pt will need to be initiated on HD -Assess need for HD on daily basis -S/p kayexalate 60 mg x 1 and calcium gluconate for hyperkalemia management -On D5W in 150 mEq of Sodium Bicarbonate infusion at 75 ml/hr -Repeat BMP at 1400 ordered -Renal US showed no hydronephrosis -Urine eosinophils negative -UA showed small blood, no significant rbc and urine studies showed no significant proteinuria -CXR showed no acute findings -On renal diet -Needs strict intake and output -Rivers Catheter: No -Avoid nephrotoxic agents -Renal plan d/w Dr Olivarez Subjective Date of service: 03/30/19 Interval history: Pt seen in ICU bed, states breathing ok, pt states his shortness of breath is around baseline for him, pt s/p breathing treatment. No family at bedside Objective - Vital Signs Vital signs: Vital Signs - 12hr 03/30/19 03/30/19 03/30/19 03:18 03:20 03:30 Temperature Pulse Rate 106 H 103 H 103 H Pulse Rate [ Anterior Bilateral Throughout] Respiratory 17 17 16 Rate Respiratory Rate [Anterior Bilateral Throughout] Blood Pressure O2 Sat by Pulse 98 98 98 Oximetry 03/30/19 03/30/19 03/30/19 03:40 03:50 03:52 Temperature 98.6 F Pulse Rate 103 H 100 H Pulse Rate [ Anterior Bilateral Throughout] Respiratory 14 13 Rate Respiratory Rate [Anterior Bilateral Throughout] Blood Pressure O2 Sat by Pulse 98 97 Oximetry 03/30/19 03/30/19 03/30/19 04:00 04:10 04:20 Temperature Pulse Rate 101 H 99 H 98 H Pulse Rate [ Anterior Bilateral Throughout] Respiratory 13 12 12 Rate Respiratory Rate [Anterior Bilateral Throughout] Blood Pressure 105/64 105/64 105/64 O2 Sat by Pulse 96 98 98 Oximetry 03/30/19 03/30/19 03/30/19 04:30 04:40 04:50 Temperature Pulse Rate 102 H 104 H 104 H Pulse Rate [ Anterior Bilateral Throughout] Respiratory 15 15 17 Rate Respiratory Rate [Anterior Bilateral Throughout] Blood Pressure 105/64 105/64 105/64 O2 Sat by Pulse 97 97 98 Oximetry 03/30/19 03/30/19 03/30/19 05:00 05:10 05:20 Temperature Pulse Rate 102 H 101 H 100 H Pulse Rate [ Anterior Bilateral Throughout] Respiratory 11 L 13 13 Rate Respiratory Rate [Anterior Bilateral Throughout] Blood Pressure 128/73 128/73 128/73 O2 Sat by Pulse 97 97 97 Oximetry 03/30/19 03/30/19 03/30/19 05:30 05:40 05:48 Temperature Pulse Rate 100 H 99 H Pulse Rate [ Anterior Bilateral Throughout] Respiratory 12 12 24 Rate Respiratory Rate [Anterior Bilateral Throughout] Blood Pressure 128/73 128/73 O2 Sat by Pulse 97 97 Oximetry 03/30/19 03/30/19 03/30/19 05:50 05:58 06:00 Temperature Pulse Rate 102 H 105 H 112 H Pulse Rate [ Anterior Bilateral Throughout] Respiratory 17 28 H 26 H Rate Respiratory Rate [Anterior Bilateral Throughout] Blood Pressure 128/73 128/73 O2 Sat by Pulse 98 98 90 Oximetry 03/30/19 03/30/19 03/30/19 06:10 06:20 06:30 Temperature Pulse Rate 113 H 119 H 108 H Pulse Rate [ Anterior Bilateral Throughout] Respiratory 19 25 H 22 Rate Respiratory Rate [Anterior Bilateral Throughout] Blood Pressure 126/100 126/100 126/100 O2 Sat by Pulse 89 87 90 Oximetry 03/30/19 03/30/19 03/30/19 06:40 06:50 07:00 Temperature Pulse Rate 109 H 105 H 109 H Pulse Rate [ Anterior Bilateral Throughout] Respiratory 23 16 17 Rate Respiratory Rate [Anterior Bilateral Throughout] Blood Pressure 126/100 126/100 139/73 O2 Sat by Pulse 96 90 89 Oximetry 03/30/19 03/30/19 03/30/19 07:10 07:20 07:30 Temperature Pulse Rate 110 H 104 H 103 H Pulse Rate [ Anterior Bilateral Throughout] Respiratory 17 15 15 Rate Respiratory Rate [Anterior Bilateral Throughout] Blood Pressure 139/73 139/73 139/73 O2 Sat by Pulse 86 87 85 Oximetry 03/30/19 03/30/19 03/30/19 07:40 07:48 07:50 Temperature Pulse Rate 103 H 99 H Pulse Rate [ 103 H Anterior Bilateral Throughout] Respiratory 21 14 Rate Respiratory 13 Rate [Anterior Bilateral Throughout] Blood Pressure 139/73 139/73 O2 Sat by Pulse 92 96 Oximetry 03/30/19 03/30/19 03/30/19 07:51 08:00 08:10 Temperature 97.9 F Pulse Rate 99 H 101 H Pulse Rate [ Anterior Bilateral Throughout] Respiratory 15 22 Rate Respiratory Rate [Anterior Bilateral Throughout] Blood Pressure 141/77 141/77 O2 Sat by Pulse 95 96 97 Oximetry 03/30/19 03/30/19 03/30/19 08:20 08:30 08:40 Temperature Pulse Rate 106 H 112 H 109 H Pulse Rate [ Anterior Bilateral Throughout] Respiratory 18 20 12 Rate Respiratory Rate [Anterior Bilateral Throughout] Blood Pressure 141/77 141/77 141/77 O2 Sat by Pulse 98 96 93 Oximetry 03/30/19 03/30/19 03/30/19 08:50 09:00 09:10 Temperature Pulse Rate 103 H 108 H 106 H Pulse Rate [ Anterior Bilateral Throughout] Respiratory 22 27 H 23 Rate Respiratory Rate [Anterior Bilateral Throughout] Blood Pressure 141/77 140/62 140/62 O2 Sat by Pulse 92 92 95 Oximetry 03/30/19 03/30/19 03/30/19 09:20 09:30 09:40 Temperature Pulse Rate 104 H 104 H 108 H Pulse Rate [ Anterior Bilateral Throughout] Respiratory 16 17 16 Rate Respiratory Rate [Anterior Bilateral Throughout] Blood Pressure 140/62 140/62 140/62 O2 Sat by Pulse 93 93 93 Oximetry 03/30/19 03/30/19 03/30/19 09:48 09:50 10:00 Temperature Pulse Rate 104 H 102 H Pulse Rate [ Anterior Bilateral Throughout] Respiratory 19 17 20 Rate Respiratory Rate [Anterior Bilateral Throughout] Blood Pressure 140/62 135/66 O2 Sat by Pulse 93 93 Oximetry 03/30/19 12:00 Temperature 97.5 F L Pulse Rate Pulse Rate [ Anterior Bilateral Throughout] Respiratory Rate Respiratory Rate [Anterior Bilateral Throughout] Blood Pressure O2 Sat by Pulse Oximetry - General Appearance General appearance: well-developed EENT: ATNC Neck: no JVD Respiratory: Present: Decreased Breath Sounds Cardiology: regular, S1S2 Gastrointestinal: normoactive bowel sounds, no tenderness Integumentary: warm and dry Neurologic: alert and oriented x3 Musculoskeletal: other (trace edema to BLE) Psychiatric: mood/affect appropriate, cooperative - Lab 03/30/19 10:12 03/30/19 10:12 Most recent lab results Calcium 9.2 mg/dL (8.4-10.2) 03/30/19 10:12 Phosphorus 7.50 mg/dL (2.5-4.5) H 03/30/19 10:12 227.1 mg/dL (0.1-20.0) H 03/30/19 10:00 230.8 mg/dL (0.1-20.0) H 03/30/19 10:00 22 mmol/L 03/30/19 10:00 31 mg/dL (5-11.8) H 03/30/19 10:00 32 mg/dL (5-11.8) H 03/30/19 10:00 Medications & Allergies - Medications Allergies/Adverse Reactions: Allergies No Known Allergies Allergy (Unverified 08/21/14 12:00) Home Medications: Home Medications Medication Instructions Recorded Confirmed Last Taken Type ALBUTEROL Inhaler (OR & NICU) 2 puff IH QID PRN 03/29/19 03/29/19 03/29/19 History [Proair] Apixaban [Eliquis] 5 mg PO BID 03/29/19 03/29/19 03/27/19 History AtorvaSTATin [Lipitor] 40 mg PO DAILY 03/29/19 03/29/19 03/27/19 History FLUoxetine HCL [Prozac] 10 mg PO QDAY 03/29/19 03/29/19 03/27/19 History Glimepiride [Amaryl] 2 mg PO BID 03/29/19 03/29/19 03/27/19 History Lisinopril [Zestril] 5 mg PO QDAY 03/29/19 03/29/19 03/27/19 History Metformin HCl [metFORMIN] 1,000 mg PO BID 03/29/19 03/29/19 03/29/19 History Pantoprazole [Protonix] 40 mg PO QDAY 03/29/19 03/29/19 03/27/19 History Tiotropium [place] [Spiriva 4 gm IH QDAY 03/29/19 03/29/19 Unknown History Respimat] Active Medications: Generic Name Dose Route Start Last Admin Trade Name Freq PRN Reason Stop Dose Admin Acetaminophen 650 mg 03/29/19 22:13 Tylenol PO Q4H PRN Pain MILD(1-3)/Fever >100.5/ARIAS Albuterol 2.5 mg 03/29/19 22:15 Proventil IH Q4HRT PRN Shortness Of Breath Albuterol/Ipratropium 1 ampul 03/30/19 08:00 03/30/19 07:45 Duoneb *Not For Prn Use* IH 1 ampul QIDRT [facility] Administration Famotidine 10 mg 03/29/19 23:00 03/30/19 09:57 Pepcid IV 10 mg BID [facility] Administration Hydromorphone HCl 0.5 mg 03/29/19 22:13 03/30/19 00:00 Dilaudid IV 0.5 mg Q3H PRN Administration Pain , Severe (7-10) Sodium Bicarbonate 150 meq/ 1,150 mls @ 75 mls/hr 03/29/19 16:00 03/30/19 02:45 Dextrose IV Infused DIRECT [facility] Infusion Levofloxacin/Dextrose 500 mg in 100 mls @ 100 mls/hr 03/31/19 23:00 Levaquin 500mg/100ml IV Q48H [facility] Methylprednisolone Sodium Succinate 60 mg 03/30/19 13:00 Solu-Medrol IV Q8H [facility] Metoclopramide HCl 5 mg 03/29/19 22:13 Reglan IV Q6H PRN Nausea And Vomiting Ondansetron HCl 4 mg 03/29/19 22:13 Zofran IV Q8H PRN Nausea And Vomiting Sodium Chloride 10 ml 03/30/19 10:00 03/30/19 10:00 Sodium Chloride Flush Syringe 10 Ml IV 10 ml BID [facility] Administration Sodium Chloride 10 ml 03/29/19 22:13 Sodium Chloride Flush Syringe 10 Ml IV PRN PRN LINE FLUSH Sodium Polystyrene Sulfonate 60 gm 03/30/19 10:55 03/30/19 11:59 Kionex PO 03/30/19 12:55 60 gm ONCE NR Administration
--- NOTE | 2019-03-30 14:22 | Progress Note ---
Assessment and Plan Assessment and plan: Acute renal failure due to ATN - Patient is on IV fluids - Nephrology is following, said there is no need for [employer] - Creatinine decreased from 8.6 to 7.2 Hyperkalemia - Treated with calcium gluconate, Kayexalate, IV fluids, will monitor, EKG normal Metabolic acidosis - Patient is on bicarbonate drip - We'll monitor Acute and chronic respiratory failure secondary to COPD exacerbation - Continue COPD exacerbation management Type 2 diabetes mellitus - Continue SSI coverage DVT prophylaxis - On heparin Disposition; I discussed with [place] physician and said continue management here. History Interval history: Patient was seen and evaluated this morning, patient didn't have any complaints. Hospitalist Physical - Physical exam Narrative exam: Not in cardiopulmonary distress. The patient is morbidly obese. Vital signs as documented. Head exam is unremarkable. No scleral icterus . Neck is without jugular venous distension, thyromegaly, or carotid bruits. Lungs are clear to auscultation. Cardiac exam reveals regular rate and Rhythm. Abdominal exam reveals normal bowel sounds, no masses, no organomegaly and no aortic enlargement. Extremities are nonedematous and both femoral and pedal pulses are normal. 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 No focal weakness. - Constitutional Vitals: Temp Pulse Resp BP Pulse Ox 97.5 F L 109 H 22 132/84 93 03/30/19 12:00 03/30/19 13:10 03/30/19 13:10 03/30/19 13:10 03/30/19 13:10 Results - Labs CBC & Chem 7: 03/30/19 10:12 03/30/19 10:12 Labs: Laboratory Last Values WBC 5.8 K/mm3 (4.5-11.0) 03/30/19 10:12 RBC 3.17 M/mm3 (3.65-5.03) L 03/30/19 10:12 Hgb 10.5 gm/dl (11.8-15.2) L 03/30/19 10:12 Hct 31.8 % (35.5-45.6) L 03/30/19 10:12 MCV 100 fl (84-94) H 03/30/19 10:12 MCH 33 pg (28-32) H 03/30/19 10:12 MCHC 33 % (32-34) 03/30/19 10:12 RDW 15.1 % (13.2-15.2) 03/30/19 10:12 Plt Count 240 K/mm3 (140-440) 03/30/19 10:12 Lymph % (Auto) 8.1 % (13.4-35.0) L 03/30/19 10:12 [place] % (Auto) 3.1 % (0.0-7.3) 03/30/19 10:12 Eos % (Auto) 0.5 % (0.0-4.3) 03/30/19 10:12 Baso % (Auto) 0.3 % (0.0-1.8) 03/30/19 10:12 Lymph # 0.5 K/mm3 (1.2-5.4) L 03/30/19 10:12 [place] # 0.2 K/mm3 (0.0-0.8) 03/30/19 10:12 Eos # 0.0 K/mm3 (0.0-0.4) 03/30/19 10:12 Baso # 0.0 K/mm3 (0.0-0.1) 03/30/19 10:12 Seg Neutrophils % 88.0 % (40.0-70.0) H 03/30/19 10:12 Seg Neutrophils # 5.1 K/mm3 (1.8-7.7) 03/30/19 10:12 POC ABG pH 7.143 (7.35-7.45) L 03/30/19 05:58 POC ABG pCO2 50.5 (35-45) H 03/30/19 05:58 POC ABG pO2 159 (80-105) H 03/30/19 05:58 POC ABG HCO3 17.3 (22-26 mml/L) 03/30/19 05:58 POC ABG Total CO2 19 (23-27mmol/L) 03/30/19 05:58 POC ABG O2 Sat 99 03/30/19 05:58 POC ABG Base Excess -12 ((-2) - (+3)mmol/L) 03/30/19 05:58 45 % 03/30/19 05:58 Sodium 132 mmol/L (137-145) L 03/30/19 10:12 Potassium 6.6 mmol/L (3.6-5.0) H* 03/30/19 10:12 Chloride 91.9 mmol/L (98-107) L 03/30/19 10:12 Carbon Dioxide 19 mmol/L (22-30) L 03/30/19 10:12 28 mmol/L 03/30/19 10:12 BUN 89 mg/dL (9-20) H 03/30/19 10:12 7.2 mg/dL (0.8-1.5) H 03/30/19 10:12 Estimated GFR 8 ml/min 03/30/19 10:12 12 % 03/30/19 10:12 Glucose 302 mg/dL (75-100) H 03/30/19 10:12 POC Glucose 275 (70-105) H 03/30/19 11:42 6.4 % (4-6) H 03/29/19 23:37 Lactic Acid 1.00 mmol/L (0.7-2.0) 03/29/19 13:18 Calcium 9.2 mg/dL (8.4-10.2) 03/30/19 10:12 Phosphorus 7.50 mg/dL (2.5-4.5) H 03/30/19 10:12 0.60 mg/dL (0.1-1.2) 03/29/19 13:18 AST 48 units/L (5-40) H 03/29/19 13:18 ALT 23 units/L (7-56) 03/29/19 13:18 136 units/L (35-129) H 03/29/19 13:18 2408 units/L (55-170) H 03/29/19 13:18 CK-MB (CK-2) 17.6 ng/mL (0.0-4.0) H 03/29/19 13:18 CK-MB (CK-2) Rel Index 0.7 (0-4) 03/29/19 13:18 0.022 ng/mL (0.00-0.029) 03/29/19 13:18 8.0 g/dL (6.3-8.2) 03/29/19 13:18 3.9 g/dL (3.9-5) 03/29/19 13:18 1.0 % 03/29/19 13:18 Yellow (Yellow) 03/29/19 12:29 Slightly-cloudy (Clear) 03/29/19 12:29 5.0 (5.0-7.0) 03/29/19 12:29 Ur Specific [place] 1.017 (1.003-1.030) 03/29/19 12:29 <15 mg/dl mg/dL (Negative) 03/29/19 12:29 50 mg/dL (Negative) 03/29/19 12:29 Tr mg/dL (Negative) 03/29/19 12:29 Sm (Negative) 03/29/19 12:29 Neg (Negative) 03/29/19 12:29 Neg (Negative) 03/29/19 12:29 < 2.0 mg/dL (<2.0) 03/29/19 12:29 Ur Leukocyte Esterase Neg (Negative) 03/29/19 12:29 3.0 /HPF (0.0-6.0) 03/29/19 12:29 1.0 /HPF (0.0-6.0) 03/29/19 12:29 Few /HPF 03/29/19 12:29 None seen (None Seen) 03/30/19 10:00 227.1 mg/dL (0.1-20.0) H 03/30/19 10:00 230.8 mg/dL (0.1-20.0) H 03/30/19 10:00 Protein/Creatinin Ratio 0.14 03/30/19 10:00 22 mmol/L 03/30/19 10:00 31 mg/dL (5-11.8) H 03/30/19 10:00 32 mg/dL (5-11.8) H 03/30/19 10:00 Presumptive negative 03/30/19 10:00 Presumptive negative 03/30/19 10:00 Ur Barbiturates Screen Presumptive negative 03/30/19 10:00 Ur Phencyclidine Scrn Presumptive negative 03/30/19 10:00 Ur Amphetamines Screen Presumptive positive 03/30/19 10:00 U Benzodiazepines Scrn Presumptive negative 03/30/19 10:00 Presumptive negative 03/30/19 10:00 U Marijuana (THC) Screen Presumptive negative 03/30/19 10:00 Disclamer 03/30/19 10:00 Hepatitis A IgM Ab Non-reactive (NonReactive) 03/29/19 19:41 Hep Bs Antigen Non-reactive (Negative) 03/29/19 19:41 Hep B Core IgM Ab Non-reactive (NonReactive) 03/29/19 19:41 Non-reactive (NonReactive) 03/29/19 19:41 Active Medications - Current Medications Current Medications: Generic Name Dose Route Start Last Admin Trade Name Freq PRN Reason Stop Dose Admin Acetaminophen 650 mg 03/29/19 22:13 Tylenol PO Q4H PRN Pain MILD(1-3)/Fever >100.5/ARIAS Albuterol 2.5 mg 03/29/19 22:15 Proventil IH Q4HRT PRN Shortness Of Breath Albuterol/Ipratropium 1 ampul 03/30/19 08:00 03/30/19 12:54 Duoneb *Not For Prn Use* IH 1 ampul QIDRT [facility] Administration Famotidine 10 mg 03/29/19 23:00 03/30/19 09:57 Pepcid IV 10 mg BID RAD[facility] Administration Hydromorphone HCl 0.5 mg 03/29/19 22:13 03/30/19 00:00 Dilaudid IV 0.5 mg Q3H PRN Administration Pain , Severe (7-10) Sodium Bicarbonate 150 meq/ 1,150 mls @ 75 mls/hr 03/29/19 16:00 03/30/19 09:00 Dextrose IV 75 mls/hr DIRECT RAD[facility] Administration Levofloxacin/Dextrose 500 mg in 100 mls @ 100 mls/hr 03/31/19 23:00 Levaquin 500mg/100ml IV Q48H [facility] Methylprednisolone Sodium Succinate 60 mg 03/30/19 13:00 03/30/19 13:00 Solu-Medrol IV 60 mg Q8H [facility] Administration Metoclopramide HCl 5 mg 03/29/19 22:13 Reglan IV Q6H PRN Nausea And Vomiting Ondansetron HCl 4 mg 03/29/19 22:13 Zofran IV Q8H PRN Nausea And Vomiting Sodium Chloride 10 ml 03/30/19 10:00 03/30/19 10:00 Sodium Chloride Flush Syringe 10 Ml IV 10 ml BID RAD[facility] Administration Sodium Chloride 10 ml 03/29/19 22:13 Sodium Chloride Flush Syringe 10 Ml IV PRN PRN LINE FLUSH Nutrition/Malnutrition Assess - Dietary Evaluation Nutrition/Malnutrition Findings: Nutrition Notes Start: 03/30/19 09:51 Freq: Status: Active Protocol: Document 03/30/19 09:52 CHELA (Rec: 03/30/19 09:56 CHELA [email or web address] [email or web address]) Nutrition Notes Need for Assessment 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 Per nephrology, no need for HD at this time. Burn Absent Trauma Absent Is patient on ventilator? No Is Patient Ambulatory and/or Out of Bed No REE-([facility]-confined to bed) 2464.656 Kcal/Kg value to use for calculation 14 Approximate Energy Requirements Using 1810 kcal/Kg Calculation Used for Recommendations Kcal/kg Additional Notes Pro needs 2.5g/kg IBW: 161g/ day Fluid needs per MD Nutrition Intervention Follow-Up By: 04/02/19 Additional Comments F/U: intakes, renal function
[2019-03-30 17:48] LABS: ABG Base Excess -6.7 mmol/L (-2.0-3.0); ABG HCO3 19.4 mmol/L (20.0-26.0); ABG Methemoglobin 0.6 % (0.0-1.5); ABG Oxygen Saturation 91.4 % (95.0-99.0); ABG PCO2 40.9 mm Hg; ABG PH 7.294 pH Units (7.350-7.450); ABG PO2 67.1 mm Hg (80.0-90.0)
[2019-03-30] MEDS ORDERED: HumaLOG SUB-Q SCH (18:00)
[2019-03-30 20:16] LABS: ABG Base Excess -5.9 mmol/L (-2.0-3.0); ABG HCO3 20.3 mmol/L (20.0-26.0); ABG Methemoglobin 0.7 % (0.0-1.5); ABG PH 7.293 pH Units (7.350-7.450); ABG PO2 85.8 mm Hg (80.0-90.0)
[2019-03-30] MEDS: REGLAN IV PRN (20:54)
[2019-03-30] MEDS: DILAUDID IV PRN ×2 (20:55)
[2019-03-30 21:13] LABS: Calcium 8.9 mg/dL (8.4-10.2)
[2019-03-31] MEDS: HumaLOG SUB-Q SCH ×5 (00:31→23:20)
[2019-03-31] MEDS ORDERED: APRESOLINE IV PRN (01:41)
--- NOTE | 2019-03-31 01:44 | Event Note ---
<EARNESTINE VITAL - Last Filed: 03/31/19 01:51> Date: 03/31/19 Pt has hx of HNT and A-fib. BP 158/110, HR 148pbm, denies active CP. Ordered stat EKG, serial troponin, and Cardiac consult. Resumed home Prozac, Eliquis, and Glimepiride. Holding Lisinopril due to TEGAN. Will start on Norvac 10mg daily, and IV hydralazine when necessary. <NATASHA JOVEL - Last Filed: 03/31/19 21:17> I personally discussed the pt with the [facility]ifford Kamla. I agree with the above documentations.
[2019-03-31] MEDS: DILAUDID IV PRN (02:01)
[2019-03-31] MEDS: PROzac PO SCH ×2 (02:02→09:58)
[2019-03-31] MEDS: ELIQUIS PO SCH ×3 (02:13→21:16)
[2019-03-31] MEDS ORDERED: CARDIZEM IV ONE (02:32)
[2019-03-31 05:25] LABS: Basophils % (Auto) 0.1 % (0.0-1.8); Hematocrit 30.6 % (35.5-45.6); Hemoglobin 10.3 gm/dl (11.8-15.2); Lymphocytes # (Auto) 0.3 K/mm3 (1.2-5.4); Lymphocytes % (Auto) 6.5 % (13.4-35.0); Mean Corpuscular HGB Conc 34 % (32-34); Mean Corpuscular Volume 99 fl (84-94); Monocytes # (Auto) 0.3 K/mm3 (0.0-0.8); Monocytes % (Auto) 6.8 % (0.0-7.3); Platelet Count 266 K/mm3 (140-440); Red Blood Count 3.08 M/mm3 (3.65-5.03); Red Cell Distribution Width 15.1 % (13.2-15.2)
[2019-03-31] MEDS: SOLU-Medrol IV SCH ×3 (06:16→21:15)
[2019-03-31] MEDS: AMARYL PO SCH ×2 (07:59→17:00)
[2019-03-31] MEDS: DUONEB *Not for PRN Use IH SCH ×3 (08:20→20:19)
[2019-03-31] MEDS: PEPCID PO SCH ×2 (09:56→21:16)
[2019-03-31] MEDS: NORVASC PO SCH (09:56)
[2019-03-31] MEDS: SODIUM CHLORIDE FLUSH SYRINGE 10 ML IV SCH ×2 (09:58→21:17)
--- NOTE | 2019-03-31 11:13 | Progress Note ---
Assessment and Plan Acute Renal Failure secondary to Prerenal vs ATN from Hypotension, no obstruction: Hyperkalemia: High Anion Gap Metabolic Acidosis: Hyperphosphatemia COPD Exacerbation HUMA -Renal function reviewed, SCr level was 4.5 today, yesterday's SCr level was 5.5-7.2, non-oliguric -No acute indication for initiation of HD at this time -Assess need for HD on daily basis -Hyperkalemia improved s/p kayexalate and bicarb drip -On D5W in 150 mEq of Sodium Bicarbonate infusion at 75 ml/hr -Renal US showed no hydronephrosis -Urine eosinophils negative -UA showed small blood, no significant rbc and urine studies showed no significant proteinuria -CXR on 03/29/19 showed no acute findings -On renal diet -Rivers Catheter: No -Intake= 1688 ml Output= 2100 ml ( Net= -411 ml) -Renal plan d/w Dr Olivarez Subjective Date of service: 03/31/19 Interval history: Pt seen in ICU, pt seen sleeping in bed upon my arrival, states still has some shortness of breath, no acute distress. On [facility] protocol for concern of alcohol withdrawals. No family at bedside Objective - Vital Signs Vital signs: Vital Signs - 12hr 03/30/19 03/30/19 03/30/19 23:10 23:12 23:20 Temperature Pulse Rate 92 H 94 H 93 H Pulse Rate [ Anterior Bilateral Throughout] Respiratory 12 12 13 Rate Respiratory Rate [Anterior Bilateral Throughout] Blood Pressure 146/82 146/82 146/82 O2 Sat by Pulse 93 96 92 Oximetry 03/30/19 03/30/19 03/30/19 23:30 23:34 23:40 Temperature Pulse Rate 103 H 92 H 99 H Pulse Rate [ Anterior Bilateral Throughout] Respiratory 14 17 Rate Respiratory Rate [Anterior Bilateral Throughout] Blood Pressure 146/82 146/82 O2 Sat by Pulse 96 97 Oximetry 03/30/19 03/31/19 03/31/19 23:50 00:00 00:10 Temperature 98.4 F Pulse Rate 97 H 110 H Pulse Rate [ Anterior Bilateral Throughout] Respiratory 14 14 26 H Rate Respiratory Rate [Anterior Bilateral Throughout] Blood Pressure 146/82 146/82 158/110 O2 Sat by Pulse 96 93 91 Oximetry 03/31/19 03/31/19 03/31/19 00:17 00:20 00:30 Temperature Pulse Rate 100 H 114 H 103 H Pulse Rate [ Anterior Bilateral Throughout] Respiratory 21 19 20 Rate Respiratory Rate [Anterior Bilateral Throughout] Blood Pressure 158/110 158/110 158/110 O2 Sat by Pulse 94 90 89 Oximetry 03/31/19 03/31/19 03/31/19 00:40 00:50 01:00 Temperature Pulse Rate 104 H 97 H 94 H Pulse Rate [ Anterior Bilateral Throughout] Respiratory 16 17 13 Rate Respiratory Rate [Anterior Bilateral Throughout] Blood Pressure 158/110 158/110 151/85 O2 Sat by Pulse 86 95 93 Oximetry 03/31/19 03/31/19 03/31/19 01:10 01:20 01:30 Temperature Pulse Rate 91 H 91 H 148 H Pulse Rate [ Anterior Bilateral Throughout] Respiratory 14 13 14 Rate Respiratory Rate [Anterior Bilateral Throughout] Blood Pressure 151/85 158/110 158/110 O2 Sat by Pulse 93 93 93 Oximetry 03/31/19 03/31/19 03/31/19 01:40 01:50 02:00 Temperature Pulse Rate 149 H 149 H 148 H Pulse Rate [ Anterior Bilateral Throughout] Respiratory 22 17 13 Rate Respiratory Rate [Anterior Bilateral Throughout] Blood Pressure 158/110 151/85 141/96 O2 Sat by Pulse 95 94 93 Oximetry 03/31/19 03/31/19 03/31/19 02:10 02:20 02:30 Temperature Pulse Rate 150 H 151 H 150 H Pulse Rate [ Anterior Bilateral Throughout] Respiratory 14 16 11 L Rate Respiratory Rate [Anterior Bilateral Throughout] Blood Pressure 141/96 141/96 141/96 O2 Sat by Pulse 93 92 93 Oximetry 03/31/19 03/31/19 03/31/19 02:35 02:40 02:50 Temperature Pulse Rate 151 H 94 H 94 H Pulse Rate [ Anterior Bilateral Throughout] Respiratory 13 12 Rate Respiratory Rate [Anterior Bilateral Throughout] Blood Pressure 141/96 141/96 O2 Sat by Pulse 92 93 Oximetry 03/31/19 03/31/19 03/31/19 03:00 03:10 03:20 Temperature Pulse Rate 97 H 84 90 Pulse Rate [ Anterior Bilateral Throughout] Respiratory 20 15 21 Rate Respiratory Rate [Anterior Bilateral Throughout] Blood Pressure 149/87 149/87 149/87 O2 Sat by Pulse 93 94 93 Oximetry 03/31/19 03/31/19 03/31/19 03:30 03:33 03:40 Temperature 98.8 F Pulse Rate 81 87 Pulse Rate [ Anterior Bilateral Throughout] Respiratory 11 L 14 Rate Respiratory Rate [Anterior Bilateral Throughout] Blood Pressure 149/87 149/87 O2 Sat by Pulse 94 92 Oximetry 03/31/19 03/31/19 03/31/19 03:45 03:50 04:00 Temperature Pulse Rate 96 H 97 H Pulse Rate [ Anterior Bilateral Throughout] Respiratory 15 21 21 Rate Respiratory Rate [Anterior Bilateral Throughout] Blood Pressure 149/87 148/79 O2 Sat by Pulse 93 95 94 Oximetry 03/31/19 03/31/19 03/31/19 04:10 04:20 04:30 Temperature Pulse Rate 87 85 89 Pulse Rate [ Anterior Bilateral Throughout] Respiratory 15 13 15 Rate Respiratory Rate [Anterior Bilateral Throughout] Blood Pressure 148/79 148/79 148/79 O2 Sat by Pulse 94 91 96 Oximetry 03/31/19 03/31/19 03/31/19 04:40 04:50 05:00 Temperature Pulse Rate 87 87 84 Pulse Rate [ Anterior Bilateral Throughout] Respiratory 13 12 12 Rate Respiratory Rate [Anterior Bilateral Throughout] Blood Pressure 148/79 148/79 135/63 O2 Sat by Pulse 94 91 92 Oximetry 03/31/19 03/31/19 03/31/19 05:10 05:20 05:30 Temperature Pulse Rate 83 89 84 Pulse Rate [ Anterior Bilateral Throughout] Respiratory 11 L 15 11 L Rate Respiratory Rate [Anterior Bilateral Throughout] Blood Pressure 135/63 135/63 135/63 O2 Sat by Pulse 92 96 94 Oximetry 03/31/19 03/31/19 03/31/19 05:43 05:50 06:00 Temperature Pulse Rate 118 H 158 H 98 H Pulse Rate [ Anterior Bilateral Throughout] Respiratory 20 21 13 Rate Respiratory Rate [Anterior Bilateral Throughout] Blood Pressure 135/63 135/63 145/63 O2 Sat by Pulse 92 89 Oximetry 03/31/19 03/31/19 03/31/19 07:00 07:10 07:20 Temperature Pulse Rate 87 86 94 H Pulse Rate [ Anterior Bilateral Throughout] Respiratory 13 13 14 Rate Respiratory Rate [Anterior Bilateral Throughout] Blood Pressure 156/90 156/90 156/90 O2 Sat by Pulse 87 89 90 Oximetry 03/31/19 03/31/19 03/31/19 07:31 07:41 07:51 Temperature Pulse Rate 84 85 80 Pulse Rate [ Anterior Bilateral Throughout] Respiratory 14 12 11 L Rate Respiratory Rate [Anterior Bilateral Throughout] Blood Pressure 156/90 156/90 O2 Sat by Pulse 91 91 91 Oximetry 03/31/19 03/31/19 03/31/19 08:00 08:11 08:21 Temperature Pulse Rate 97 H 106 H 105 H Pulse Rate [ Anterior Bilateral Throughout] Respiratory 18 19 14 Rate Respiratory Rate [Anterior Bilateral Throughout] Blood Pressure 160/97 160/97 160/97 O2 Sat by Pulse 91 91 90 Oximetry 03/31/19 03/31/19 03/31/19 08:22 08:25 08:31 Temperature 97.8 F Pulse Rate 98 H Pulse Rate [ 105 H Anterior Bilateral Throughout] Respiratory 18 Rate Respiratory 19 Rate [Anterior Bilateral Throughout] Blood Pressure 160/97 O2 Sat by Pulse 92 99 Oximetry 03/31/19 03/31/19 08:41 09:56 Temperature Pulse Rate 102 H 95 H Pulse Rate [ Anterior Bilateral Throughout] Respiratory 19 Rate Respiratory Rate [Anterior Bilateral Throughout] Blood Pressure 160/97 136/72 O2 Sat by Pulse 98 Oximetry - General Appearance General appearance: other (awake) EENT: ATNC Neck: no JVD Respiratory: Present: Decreased Breath Sounds Cardiology: tachycardia, S1S2 Gastrointestinal: normoactive bowel sounds, no tenderness Integumentary: warm and dry Neurologic: alert and oriented x3 Musculoskeletal: other (trace edema to BLE) Psychiatric: cooperative - Lab 03/31/19 04:39 03/31/19 04:39 Most recent lab results ABG pH 7.293 pH Units (7.350-7.450) L 03/30/19 20:00 ABG pCO2 43.0 mm Hg 03/30/19 20:00 ABG pO2 85.8 mm Hg (80.0-90.0) 03/30/19 20:00 ABG HCO3 20.3 mmol/L (20.0-26.0) 03/30/19 20:00 ABG O2 Saturation 96.0 % (95.0-99.0) 03/30/19 20:00 Calcium 9.0 mg/dL (8.4-10.2) 03/31/19 04:39 Phosphorus 7.50 mg/dL (2.5-4.5) H 03/30/19 10:12 227.1 mg/dL (0.1-20.0) H 03/30/19 10:00 230.8 mg/dL (0.1-20.0) H 03/30/19 10:00 22 mmol/L 03/30/19 10:00 31 mg/dL (5-11.8) H 03/30/19 10:00 32 mg/dL (5-11.8) H 03/30/19 10:00 Medications & Allergies - Medications Allergies/Adverse Reactions: Allergies No Known Allergies Allergy (Unverified 08/21/14 12:00) Home Medications: Home Medications Medication Instructions Recorded Confirmed Last Taken Type ALBUTEROL Inhaler (OR & NICU) 2 puff IH QID PRN 03/29/19 03/29/19 03/29/19 History [Proair] Apixaban [Eliquis] 5 mg PO BID 03/29/19 03/29/19 03/27/19 History AtorvaSTATin [Lipitor] 40 mg PO DAILY 03/29/19 03/29/19 03/27/19 History FLUoxetine HCL [Prozac] 10 mg PO QDAY 03/29/19 03/29/19 03/27/19 History Glimepiride [Amaryl] 2 mg PO BID 03/29/19 03/29/19 03/27/19 History Lisinopril [Zestril] 5 mg PO QDAY 03/29/19 03/29/19 03/27/19 History Metformin HCl [metFORMIN] 1,000 mg PO BID 03/29/19 03/29/19 03/29/19 History Pantoprazole [Protonix] 40 mg PO QDAY 03/29/19 03/29/19 03/27/19 History Tiotropium [place] [Spiriva 4 gm IH QDAY 03/29/19 03/29/19 Unknown History Respimat] Active Medications: Generic Name Dose Route Start Last Admin Trade Name Freq PRN Reason Stop Dose Admin Acetaminophen 650 mg 03/29/19 22:13 Tylenol PO Q4H PRN Pain MILD(1-3)/Fever >100.5/ARIAS Albuterol 2.5 mg 03/29/19 22:15 Proventil IH Q4HRT PRN Shortness Of Breath Albuterol/Ipratropium 1 ampul 03/31/19 14:00 Duoneb *Not For Prn Use* IH TIDRT RADHA Amlodipine Besylate 10 mg 03/31/19 10:00 03/31/19 09:56 Norvasc PO 10 mg QDAY RADHA Administration Apixaban 5 mg 03/31/19 02:00 03/31/19 09:57 Eliquis PO 5 mg BID RADHA Administration Protocol Atorvastatin Calcium 40 mg 03/31/19 10:00 03/31/19 09:57 Lipitor PO 40 mg DAILY RADHA Administration Dextrose 50 ml 03/30/19 16:21 D50w (25gm) Syringe IV PRN PRN Hypoglycemia Famotidine 10 mg 03/31/19 10:00 03/31/19 09:56 Pepcid PO 10 mg BID RADHA Administration Fluoxetine HCl 10 mg 03/31/19 02:00 03/31/19 09:58 Prozac PO 10 mg QDAY RADHA Administration Glimepiride 2 mg 03/31/19 08:00 03/31/19 07:59 Amaryl PO 2 mg BIDDIAB RADHA Administration Hydralazine HCl 10 mg 03/31/19 01:41 Apresoline IV Q4HR PRN Blood Pressure Hydromorphone HCl 0.5 mg 03/29/19 22:13 03/31/19 02:01 Dilaudid IV 0.5 mg Q3H PRN Administration Pain , Severe (7-10) Sodium Bicarbonate 150 meq/ 1,150 mls @ 75 mls/hr 03/29/19 16:00 03/30/19 23:15 Dextrose IV 75 mls/hr DIRECT RADHA Administration Levofloxacin/Dextrose 500 mg in 100 mls @ 100 mls/hr 03/31/19 23:00 Levaquin 500mg/100ml IV Q48H [facility] Insulin Human Lispro 0 unit 03/31/19 00:00 03/31/19 06:16 Humalog SUB-Q 10 unit Q6HR [facility] Administration Protocol Methylprednisolone Sodium Succinate 60 mg 03/30/19 13:00 03/31/19 06:16 Solu-Medrol IV 60 mg Q8H RADHA Administration Metoclopramide HCl 5 mg 03/29/19 22:13 03/30/19 20:54 Reglan IV 5 mg Q6H PRN Administration Nausea And Vomiting Ondansetron HCl 4 mg 03/29/19 22:13 Zofran IV Q8H PRN Nausea And Vomiting Sodium Chloride 10 ml 03/30/19 10:00 08/18/19 09:58 Sodium Chloride Flush Syringe 10 Ml IV 10 ml BID RADHA Administration Sodium Chloride 10 ml 03/29/19 22:13 Sodium Chloride Flush Syringe 10 Ml IV PRN PRN LINE FLUSH
--- NOTE | 2019-03-31 11:25 | Progress Note ---
Assessment and Plan - Patient Problems (1) HUMA on CPAP Current Visit: Yes Status: Acute (2) HUMA treated with BiPAP Current Visit: Yes Status: Acute (3) Acute bronchitis Current Visit: Yes Status: Acute (4) COPD exacerbation Current Visit: Yes Status: Acute (5) Hyperkalemia Current Visit: Yes Status: Acute (6) Hypoxia Current Visit: Yes Status: Acute (7) Renal failure Current Visit: Yes Status: Acute Qualifiers: Renal failure chronicity: acute Acute renal failure type: unspecified Qualified Code(s): N17.9 - Acute kidney failure, unspecified (8) SOB (shortness of breath) Current Visit: Yes Status: Acute (9) Obesity due to excess calories with serious comorbidity Current Visit: Yes Status: Acute (10) Acute respiratory failure Current Visit: Yes Status: Acute (11) Acute respiratory acidosis Current Visit: Yes Status: Acute (12) Metabolic acidosis Current Visit: Yes Status: Acute Subjective Interval history: episodes of agitation last pm Placed back on bipap. ABG noted Awake and responsive today Objective Vital Signs - 12hr 03/30/19 03/30/19 03/30/19 23:30 23:34 23:40 Temperature Pulse Rate 103 H 92 H 99 H Pulse Rate [ Anterior Bilateral Throughout] Respiratory 14 17 Rate Respiratory Rate [Anterior Bilateral Throughout] Blood Pressure 146/82 146/82 O2 Sat by Pulse 96 97 Oximetry 03/30/19 03/31/19 03/31/19 23:50 00:00 00:10 Temperature 98.4 F Pulse Rate 97 H 110 H Pulse Rate [ Anterior Bilateral Throughout] Respiratory 14 14 26 H Rate Respiratory Rate [Anterior Bilateral Throughout] Blood Pressure 146/82 146/82 158/110 O2 Sat by Pulse 96 93 91 Oximetry 03/31/19 03/31/19 03/31/19 00:17 00:20 00:30 Temperature Pulse Rate 100 H 114 H 103 H Pulse Rate [ Anterior Bilateral Throughout] Respiratory 21 19 20 Rate Respiratory Rate [Anterior Bilateral Throughout] Blood Pressure 158/110 158/110 158/110 O2 Sat by Pulse 94 90 89 Oximetry 03/31/19 03/31/19 03/31/19 00:40 00:50 01:00 Temperature Pulse Rate 104 H 97 H 94 H Pulse Rate [ Anterior Bilateral Throughout] Respiratory 16 17 13 Rate Respiratory Rate [Anterior Bilateral Throughout] Blood Pressure 158/110 158/110 151/85 O2 Sat by Pulse 86 95 93 Oximetry 03/31/19 03/31/19 03/31/19 01:10 01:20 01:30 Temperature Pulse Rate 91 H 91 H 148 H Pulse Rate [ Anterior Bilateral Throughout] Respiratory 14 13 14 Rate Respiratory Rate [Anterior Bilateral Throughout] Blood Pressure 151/85 158/110 158/110 O2 Sat by Pulse 93 93 93 Oximetry 03/31/19 03/31/19 03/31/19 01:40 01:50 02:00 Temperature Pulse Rate 149 H 149 H 148 H Pulse Rate [ Anterior Bilateral Throughout] Respiratory 22 17 13 Rate Respiratory Rate [Anterior Bilateral Throughout] Blood Pressure 158/110 151/85 141/96 O2 Sat by Pulse 95 94 93 Oximetry 03/31/19 03/31/19 03/31/19 02:10 02:20 02:30 Temperature Pulse Rate 150 H 151 H 150 H Pulse Rate [ Anterior Bilateral Throughout] Respiratory 14 16 11 L Rate Respiratory Rate [Anterior Bilateral Throughout] Blood Pressure 141/96 141/96 141/96 O2 Sat by Pulse 93 92 93 Oximetry 03/31/19 03/31/19 03/31/19 02:35 02:40 02:50 Temperature Pulse Rate 151 H 94 H 94 H Pulse Rate [ Anterior Bilateral Throughout] Respiratory 13 12 Rate Respiratory Rate [Anterior Bilateral Throughout] Blood Pressure 141/96 141/96 O2 Sat by Pulse 92 93 Oximetry 03/31/19 03/31/19 03/31/19 03:00 03:10 03:20 Temperature Pulse Rate 97 H 84 90 Pulse Rate [ Anterior Bilateral Throughout] Respiratory 20 15 21 Rate Respiratory Rate [Anterior Bilateral Throughout] Blood Pressure 149/87 149/87 149/87 O2 Sat by Pulse 93 94 93 Oximetry 03/31/19 03/31/19 03/31/19 03:30 03:33 03:40 Temperature 98.8 F Pulse Rate 81 87 Pulse Rate [ Anterior Bilateral Throughout] Respiratory 11 L 14 Rate Respiratory Rate [Anterior Bilateral Throughout] Blood Pressure 149/87 149/87 O2 Sat by Pulse 94 92 Oximetry 03/31/19 03/31/19 03/31/19 03:45 03:50 04:00 Temperature Pulse Rate 96 H 97 H Pulse Rate [ Anterior Bilateral Throughout] Respiratory 15 21 21 Rate Respiratory Rate [Anterior Bilateral Throughout] Blood Pressure 149/87 148/79 O2 Sat by Pulse 93 95 94 Oximetry 03/31/19 03/31/19 03/31/19 04:10 04:20 04:30 Temperature Pulse Rate 87 85 89 Pulse Rate [ Anterior Bilateral Throughout] Respiratory 15 13 15 Rate Respiratory Rate [Anterior Bilateral Throughout] Blood Pressure 148/79 148/79 148/79 O2 Sat by Pulse 94 91 96 Oximetry 03/31/19 03/31/19 03/31/19 04:40 04:50 05:00 Temperature Pulse Rate 87 87 84 Pulse Rate [ Anterior Bilateral Throughout] Respiratory 13 12 12 Rate Respiratory Rate [Anterior Bilateral Throughout] Blood Pressure 148/79 148/79 135/63 O2 Sat by Pulse 94 91 92 Oximetry 03/31/19 03/31/19 03/31/19 05:10 05:20 05:30 Temperature Pulse Rate 83 89 84 Pulse Rate [ Anterior Bilateral Throughout] Respiratory 11 L 15 11 L Rate Respiratory Rate [Anterior Bilateral Throughout] Blood Pressure 135/63 135/63 135/63 O2 Sat by Pulse 92 96 94 Oximetry 03/31/19 03/31/19 03/31/19 05:43 05:50 06:00 Temperature Pulse Rate 118 H 158 H 98 H Pulse Rate [ Anterior Bilateral Throughout] Respiratory 20 21 13 Rate Respiratory Rate [Anterior Bilateral Throughout] Blood Pressure 135/63 135/63 145/63 O2 Sat by Pulse 92 89 Oximetry 03/31/19 03/31/19 03/31/19 07:00 07:10 07:20 Temperature Pulse Rate 87 86 94 H Pulse Rate [ Anterior Bilateral Throughout] Respiratory 13 13 14 Rate Respiratory Rate [Anterior Bilateral Throughout] Blood Pressure 156/90 156/90 156/90 O2 Sat by Pulse 87 89 90 Oximetry 03/31/19 03/31/19 03/31/19 07:31 07:41 07:51 Temperature Pulse Rate 84 85 80 Pulse Rate [ Anterior Bilateral Throughout] Respiratory 14 12 11 L Rate Respiratory Rate [Anterior Bilateral Throughout] Blood Pressure 156/90 156/90 O2 Sat by Pulse 91 91 91 Oximetry 03/31/19 03/31/19 03/31/19 08:00 08:11 08:21 Temperature Pulse Rate 97 H 106 H 105 H Pulse Rate [ Anterior Bilateral Throughout] Respiratory 18 19 14 Rate Respiratory Rate [Anterior Bilateral Throughout] Blood Pressure 160/97 160/97 160/97 O2 Sat by Pulse 91 91 90 Oximetry 03/31/19 03/31/19 03/31/19 08:22 08:25 08:31 Temperature 97.8 F Pulse Rate 98 H Pulse Rate [ 105 H Anterior Bilateral Throughout] Respiratory 18 Rate Respiratory 19 Rate [Anterior Bilateral Throughout] Blood Pressure 160/97 O2 Sat by Pulse 92 99 Oximetry 03/31/19 03/31/19 03/31/19 08:41 08:51 09:01 Temperature Pulse Rate 102 H 107 H 112 H Pulse Rate [ Anterior Bilateral Throughout] Respiratory 19 20 13 Rate Respiratory Rate [Anterior Bilateral Throughout] Blood Pressure 160/97 160/97 160/97 O2 Sat by Pulse 98 92 94 Oximetry 03/31/19 03/31/19 03/31/19 09:11 09:21 09:31 Temperature Pulse Rate 105 H 103 H 98 H Pulse Rate [ Anterior Bilateral Throughout] Respiratory 23 17 16 Rate Respiratory Rate [Anterior Bilateral Throughout] Blood Pressure 160/97 160/97 160/97 O2 Sat by Pulse 93 93 93 Oximetry 03/31/19 03/31/19 03/31/19 09:41 09:51 09:56 Temperature Pulse Rate 98 H 94 H 95 H Pulse Rate [ Anterior Bilateral Throughout] Respiratory 15 15 Rate Respiratory Rate [Anterior Bilateral Throughout] Blood Pressure 160/97 160/97 136/72 O2 Sat by Pulse 94 93 Oximetry 03/31/19 03/31/19 03/31/19 10:00 10:11 10:21 Temperature Pulse Rate 103 H 94 H 103 H Pulse Rate [ Anterior Bilateral Throughout] Respiratory 20 13 24 Rate Respiratory Rate [Anterior Bilateral Throughout] Blood Pressure 137/76 137/76 137/76 O2 Sat by Pulse 93 93 93 Oximetry 03/31/19 03/31/19 03/31/19 10:31 10:41 10:51 Temperature Pulse Rate 96 H 90 93 H Pulse Rate [ Anterior Bilateral Throughout] Respiratory 19 13 13 Rate Respiratory Rate [Anterior Bilateral Throughout] Blood Pressure 137/76 137/76 137/76 O2 Sat by Pulse 93 94 94 Oximetry 03/31/19 03/31/19 11:00 11:11 Temperature Pulse Rate 92 H 91 H Pulse Rate [ Anterior Bilateral Throughout] Respiratory 13 14 Rate Respiratory Rate [Anterior Bilateral Throughout] Blood Pressure 150/75 150/75 O2 Sat by Pulse 91 93 Oximetry Constitutional: no acute distress, other (obese) Eyes: non-icteric ENT: oropharynx moist Neck: supple Ascultation: Bilateral: wheezes Percussion: Bilateral: not dull Cardiovascular: regular rate and rhythm Gastrointestinal: normoactive bowel sounds, soft, non-distended, other (obese) Integumentary: normal Extremities: no cyanosis Neurologic: non-focal exam Psychiatric: mood appropriate CBC and BMP: 03/31/19 04:39 03/31/19 04:39 ABG, PT/INR, D-dimer: ABG POC ABG pH 7.143 (7.35-7.45) L 03/30/19 05:58 ABG pH 7.293 pH Units (7.350-7.450) L 03/30/19 20:00 POC ABG pCO2 50.5 (35-45) H 03/30/19 05:58 ABG pCO2 43.0 mm Hg 03/30/19 20:00 POC ABG pO2 159 (80-105) H 03/30/19 05:58 ABG pO2 85.8 mm Hg (80.0-90.0) 03/30/19 20:00 POC ABG HCO3 17.3 (22-26 mml/L) 03/30/19 05:58 POC ABG Total CO2 19 (23-27mmol/L) 03/30/19 05:58 POC ABG O2 Sat 99 03/30/19 05:58 ABG O2 Saturation 96.0 % (95.0-99.0) 03/30/19 20:00 Abnormal lab findings: Abnormal Labs 03/29/19 03/29/19 03/29/19 13:18 13:18 18:22 RBC 3.24 L Hgb 10.6 L Hct 33.2 L MCV 103 H MCH 33 H RDW 15.5 H Lymph % (Auto) 9.4 L [place] % (Auto) 7.8 H Lymph # 0.8 L Seg Neutrophils % 81.5 H POC ABG pH 7.122 L ABG pH POC ABG pCO2 45.4 H POC ABG pO2 ABG pO2 ABG HCO3 ABG O2 Saturation ABG Base Excess ABG Hemoglobin Oxyhemoglobin Sodium 132 L Potassium 6.6 H* Chloride 94.9 L Carbon Dioxide 14 L BUN 73 H Creatinine 8.6 H Glucose POC Glucose Hemoglobin A1c Phosphorus AST 48 H Alkaline Phosphatase 136 H Total Creatine Kinase 2408 H CK-MB (CK-2) 17.6 H Urine Creatinine Urine Total Protein 03/29/19 03/30/19 03/30/19 23:37 05:58 10:00 RBC Hgb Hct MCV MCH RDW Lymph % (Auto) [place] % (Auto) Lymph # Seg Neutrophils % POC ABG pH 7.143 L ABG pH POC ABG pCO2 50.5 H POC ABG pO2 159 H ABG pO2 ABG HCO3 ABG O2 Saturation ABG Base Excess ABG Hemoglobin Oxyhemoglobin Sodium Potassium Chloride Carbon Dioxide BUN Creatinine Glucose POC Glucose Hemoglobin A1c 6.4 H Phosphorus AST Alkaline Phosphatase Total Creatine Kinase CK-MB (CK-2) Urine Creatinine 227.1 H Urine Total Protein 31 H 03/30/19 03/30/19 03/30/19 10:00 10:12 10:12 RBC 3.17 L Hgb 10.5 L Hct 31.8 L MCV 100 H MCH 33 H RDW Lymph % (Auto) 8.1 L [place] % (Auto) Lymph # 0.5 L Seg Neutrophils % 88.0 H POC ABG pH ABG pH POC ABG pCO2 POC ABG pO2 ABG pO2 ABG HCO3 ABG O2 Saturation ABG Base Excess ABG Hemoglobin Oxyhemoglobin Sodium 132 L Potassium 6.6 H* Chloride 91.9 L Carbon Dioxide 19 L BUN 89 H Creatinine 7.2 H Glucose 302 H POC Glucose Hemoglobin A1c Phosphorus 7.50 H AST Alkaline Phosphatase Total Creatine Kinase CK-MB (CK-2) Urine Creatinine 230.8 H Urine Total Protein 32 H 03/30/19 03/30/19 03/30/19 11:42 16:54 17:45 RBC Hgb Hct MCV MCH RDW Lymph % (Auto) [place] % (Auto) Lymph # Seg Neutrophils % POC ABG pH ABG pH 7.294 L POC ABG pCO2 POC ABG pO2 ABG pO2 67.1 L ABG HCO3 19.4 L ABG O2 Saturation 91.4 L ABG Base Excess -6.7 L ABG Hemoglobin 9.9 L Oxyhemoglobin 89.4 L Sodium Potassium Chloride Carbon Dioxide BUN Creatinine Glucose POC Glucose 275 H 361 H Hemoglobin A1c Phosphorus AST Alkaline Phosphatase Total Creatine Kinase CK-MB (CK-2) Urine Creatinine Urine Total Protein 03/30/19 03/30/19 03/30/19 20:00 20:28 23:27 RBC Hgb Hct MCV MCH RDW Lymph % (Auto) [place] % (Auto) Lymph # Seg Neutrophils % POC ABG pH ABG pH 7.293 L POC ABG pCO2 POC ABG pO2 ABG pO2 ABG HCO3 ABG O2 Saturation ABG Base Excess -5.9 L ABG Hemoglobin 11.0 L Oxyhemoglobin 94.1 L Sodium 134 L Potassium Chloride 92.9 L Carbon Dioxide 19 L BUN 93 H Creatinine 5.5 H Glucose 374 H POC Glucose 372 H Hemoglobin A1c Phosphorus AST Alkaline Phosphatase Total Creatine Kinase CK-MB (CK-2) Urine Creatinine Urine Total Protein 03/31/19 03/31/19 03/31/19 04:39 04:39 05:27 RBC 3.08 L Hgb 10.3 L Hct 30.6 L MCV 99 H MCH 33 H RDW Lymph % (Auto) 6.5 L [place] % (Auto) Lymph # 0.3 L Seg Neutrophils % 86.6 H POC ABG pH ABG pH POC ABG pCO2 POC ABG pO2 ABG pO2 ABG HCO3 ABG O2 Saturation ABG Base Excess ABG Hemoglobin Oxyhemoglobin Sodium 135 L Potassium Chloride 92.7 L Carbon Dioxide BUN 92 H Creatinine 4.5 H Glucose 344 H POC Glucose 354 H Hemoglobin A1c Phosphorus AST Alkaline Phosphatase Total Creatine Kinase CK-MB (CK-2) Urine Creatinine Urine Total Protein 03/31/19 08:03 RBC Hgb Hct MCV MCH RDW Lymph % (Auto) [place] % (Auto) Lymph # Seg Neutrophils % POC ABG pH ABG pH POC ABG pCO2 POC ABG pO2 ABG pO2 ABG HCO3 ABG O2 Saturation ABG Base Excess ABG Hemoglobin Oxyhemoglobin Sodium Potassium Chloride Carbon Dioxide BUN Creatinine Glucose POC Glucose 375 H Hemoglobin A1c Phosphorus AST Alkaline Phosphatase Total Creatine Kinase CK-MB (CK-2) Urine Creatinine Urine Total Protein
[2019-03-31] MEDS ORDERED: DILAUDID IV PRN (11:39)
[2019-03-31] MEDS: TESSALON PERLES PO SCH ×2 (13:19→21:16)
--- NOTE | 2019-03-31 13:54 | Consultation ---
History of Present Illness Consult date: 03/31/19 Consult reason: tachycardia History of present illness: 58 yo male adm to [facility] with resp insuff,sob,acute renal failure and hyperkalemia. pulm and neprhology consultants seeing pt. pt has a hx of htn, dm, copd, sleep apnea and atrial fibrillation. he has been receiving eliquis. he was noted to be tachycardic at at rate of approx 150. this was transient and appears to be svt. he has converted back to sinus rhtyhm. he denies ischemic chest pain. no syncopal spells. Past History Past Medical History: atrial fib, COPD, diabetes, hypertension Past Surgical History: appendectomy, Other (elbow surgery) Social history: no significant social history Family history: no significant family history Medications and Allergies Allergies Allergy/AdvReac Type Severity Reaction Status Date / Time No Known Allergies Allergy Unverified 08/21/14 12:00 Home Medications Medication Instructions Recorded Confirmed Last Taken Type ALBUTEROL Inhaler (OR & NICU) 2 puff IH QID PRN 03/29/19 03/29/19 03/29/19 History [Proair] Apixaban [Eliquis] 5 mg PO BID 03/29/19 03/29/19 03/27/19 History AtorvaSTATin [Lipitor] 40 mg PO DAILY 03/29/19 03/29/19 03/27/19 History FLUoxetine HCL [Prozac] 10 mg PO QDAY 03/29/19 03/29/19 03/27/19 History Glimepiride [Amaryl] 2 mg PO BID 03/29/19 03/29/19 03/27/19 History Lisinopril [Zestril] 5 mg PO QDAY 03/29/19 03/29/19 03/27/19 History Metformin HCl [metFORMIN] 1,000 mg PO BID 03/29/19 03/29/19 03/29/19 History Pantoprazole [Protonix] 40 mg PO QDAY 03/29/19 03/29/19 03/27/19 History Tiotropium [place] [Spiriva 4 gm IH QDAY 03/29/19 03/29/19 Unknown History Respimat] Active Meds: Active Medications Acetaminophen (Tylenol) 650 mg PO Q4H PRN PRN Reason: Pain MILD(1-3)/Fever >100.5/ARIAS Albuterol (Proventil) 2.5 mg IH Q4HRT PRN PRN Reason: Shortness Of Breath Albuterol/Ipratropium (Duoneb *Not For Prn Use*) 1 ampul IH TIDRT [facility] Last Admin: 03/31/19 13:38 Dose: 1 ampul Documented by: Amlodipine Besylate (Norvasc) 10 mg PO QDAY [facility] Last Admin: 03/31/19 09:56 Dose: 10 mg Documented by: Apixaban (Eliquis) 5 mg PO BID [facility]; Protocol Last Admin: 03/31/19 09:57 Dose: 5 mg Documented by: Atorvastatin Calcium (Lipitor) 40 mg PO DAILY [facility] Last Admin: 03/31/19 09:57 Dose: 40 mg Documented by: Benzonatate (Tessalon Perles) 100 mg PO Q8HR [facility] Last Admin: 03/31/19 13:19 Dose: 100 mg Documented by: Dextrose (D50w (25gm) Syringe) 50 ml IV PRN PRN PRN Reason: Hypoglycemia Famotidine (Pepcid) 10 mg PO BID [facility] Last Admin: 03/31/19 09:56 Dose: 10 mg Documented by: Fluoxetine HCl (Prozac) 10 mg PO QDAY [facility] Last Admin: 03/31/19 09:58 Dose: 10 mg Documented by: Glimepiride (Amaryl) 2 mg PO BIDDIAB [facility] Last Admin: 03/31/19 07:59 Dose: 2 mg Documented by: Guaifenesin (Guaifenesin Dm Syrup) 5 ml PO Q6H PRN PRN Reason: Cough Last Admin: 03/31/19 13:24 Dose: 5 ml Documented by: Hydralazine HCl (Apresoline) 10 mg IV Q4HR PRN PRN Reason: Blood Pressure Hydromorphone HCl (Dilaudid) 0.25 mg IV Q3H PRN PRN Reason: Pain , Severe (7-10) Sodium Bicarbonate 150 meq/ (Dextrose) 1,150 mls @ 75 mls/hr IV DIRECT [facility] Last Admin: 03/30/19 23:15 Dose: 75 mls/hr Documented by: Levofloxacin/Dextrose (Levaquin 500mg/100ml) 500 mg in 100 mls @ 100 mls/hr IV Q48H [facility] Insulin Human Lispro (Humalog) 0 unit SUB-Q Q6HR [facility]; Protocol Last Admin: 03/31/19 12:14 Dose: 10 unit Documented by: Lorazepam (Ativan) 2 mg IV Q1HR PRN PRN Reason: CIWA-Ar 8-15 Lorazepam (Ativan) 4 mg PO Q1HR PRN PRN Reason: CIWA-Ar 16-25 Lorazepam (Ativan) 4 mg IV Q15MIN PRN PRN Reason: CIWA-Ar >25 Methylprednisolone Sodium Succinate (Solu-Medrol) 60 mg IV Q8H [facility] Last Admin: 03/31/19 12:13 Dose: 60 mg Documented by: Metoclopramide HCl (Reglan) 5 mg IV Q6H PRN PRN Reason: Nausea And Vomiting Last Admin: 03/30/19 20:54 Dose: 5 mg Documented by: Ondansetron HCl (Zofran) 4 mg IV Q8H PRN PRN Reason: Nausea And Vomiting Sodium Chloride (Sodium Chloride Flush Syringe 10 Ml) 10 ml IV BID [facility] Last Admin: 03/31/19 09:58 Dose: 10 ml Documented by: Sodium Chloride (Sodium Chloride Flush Syringe 10 Ml) 10 ml IV PRN PRN PRN Reason: LINE FLUSH Review of Systems Constitutional: no fever, no chills Eyes: bilateral: blurred vision (w/o) Ears, nose, mouth and throat: no epistaxis Cardiovascular: no chest pain, no syncope Respiratory: shortness of breath Gastrointestinal: no abdominal pain Genitourinary Male: no flank pain Musculoskeletal: no frequent falls Integumentary: no rash Neurological: no seizures Psychiatric: no anxiety Endocrine: no cold intolerance, no heat intolerance Hematologic/Lymphatic: no easy bruising Allergic/Immunologic: urticaria Physical Examination Vital Signs Pulse Resp BP Pulse Ox 110 H 30 H 102/62 97 03/29/19 12:40 03/29/19 12:40 03/29/19 12:40 03/29/19 12:40 General appearance: mild distress (sob) HEENT: Positive: PERRL, Normocephaly Neck: Positive: neck supple. Negative: JVD/HJR, Bruit Cardiac: Positive: Reg Rate and Rhythm, Tachycardia. Negative: Audible Murmur Lungs: Positive: Decreased Breath Sounds, Wheezes (scattered) Neuro: Positive: Grossly Intact Abdomen: Positive: Soft. Negative: Tender Skin: Negative: Rash Musculoskeletal: Normal Range of Motion Extremities: Present: +1 Edema, Other (pedal pulse intact) Results 03/31/19 04:39 03/31/19 04:39 CBC 03/31/19 Range/Units 04:39 WBC 4.7 (4.5-11.0) K/mm3 RBC 3.08 L (3.65-5.03) M/mm3 Hgb 10.3 L (11.8-15.2) gm/dl Hct 30.6 L (35.5-45.6) % Plt Count 266 (140-440) K/mm3 Lymph # 0.3 L (1.2-5.4) K/mm3 [place] # 0.3 (0.0-0.8) K/mm3 Eos # 0.0 (0.0-0.4) K/mm3 Baso # 0.0 (0.0-0.1) K/mm3 Comprehensive Metabolic Panel 03/30/19 03/31/19 Range/Units 20:28 04:39 Sodium 134 L 135 L (137-145) mmol/L Potassium 4.5 D 4.0 (3.6-5.0) mmol/L Chloride 92.9 L 92.7 L (98-107) mmol/L Carbon Dioxide 19 L 23 (22-30) mmol/L BUN 93 H 92 H (9-20) mg/dL Creatinine 5.5 H 4.5 H (0.8-1.5) mg/dL Glucose 374 H 344 H (75-100) mg/dL Calcium 8.9 9.0 (8.4-10.2) mg/dL Assessment and Plan acute renal failure hyperkalemia copd exacerbation, sleep apnea hx htn,dm,atrial fib psvt agree with mgt per renal and pulm further rec per hosp course
--- NOTE | 2019-03-31 14:53 | Progress Note ---
Assessment and Plan Assessment and plan: Patient is a 58-year-old male that presents emergency room with complaints of shortness of breath. afib with rvr and hypercoaguable state mgt per cardiology Acute renal failure due to ATN nephrology following, improving Hyperkalemia - was medically rx and improved Metabolic acidosis - sp bicarbonate drip Acute and chronic respiratory failure secondary to COPD exacerbation - Continue COPD exacerbation , pulmonology input appreciated Type 2 diabetes mellitus - Continue SSI coverage DVT prophylaxis - On heparin Disposition; I discussed with [place] physician and said continue management here. CCT 33 mins Hospitalist Physical - Constitutional Vitals: Temp Pulse Resp BP Pulse Ox 98.0 F 110 H 17 150/75 93 03/31/19 12:09 03/31/19 13:40 03/31/19 13:40 03/31/19 11:11 03/31/19 11:11 General appearance: Present: mild distress (sob) Results - Labs CBC & Chem 7: 03/31/19 04:39 03/31/19 04:39 Labs: Laboratory Last Values WBC 4.7 K/mm3 (4.5-11.0) 03/31/19 04:39 RBC 3.08 M/mm3 (3.65-5.03) L 03/31/19 04:39 Hgb 10.3 gm/dl (11.8-15.2) L 03/31/19 04:39 Hct 30.6 % (35.5-45.6) L 03/31/19 04:39 MCV 99 fl (84-94) H 03/31/19 04:39 MCH 33 pg (28-32) H 03/31/19 04:39 MCHC 34 % (32-34) 03/31/19 04:39 RDW 15.1 % (13.2-15.2) 03/31/19 04:39 Plt Count 266 K/mm3 (140-440) 03/31/19 04:39 Lymph % (Auto) 6.5 % (13.4-35.0) L 03/31/19 04:39 [place] % (Auto) 6.8 % (0.0-7.3) 03/31/19 04:39 Eos % (Auto) 0.0 % (0.0-4.3) 03/31/19 04:39 Baso % (Auto) 0.1 % (0.0-1.8) 03/31/19 04:39 Lymph # 0.3 K/mm3 (1.2-5.4) L 03/31/19 04:39 [place] # 0.3 K/mm3 (0.0-0.8) 03/31/19 04:39 Eos # 0.0 K/mm3 (0.0-0.4) 03/31/19 04:39 Baso # 0.0 K/mm3 (0.0-0.1) 03/31/19 04:39 Seg Neutrophils % 86.6 % (40.0-70.0) H 03/31/19 04:39 Seg Neutrophils # 4.1 K/mm3 (1.8-7.7) 03/31/19 04:39 POC ABG pH 7.143 (7.35-7.45) L 03/30/19 05:58 ABG pH 7.293 pH Units (7.350-7.450) L 03/30/19 20:00 POC ABG pCO2 50.5 (35-45) H 03/30/19 05:58 ABG pCO2 43.0 mm Hg 03/30/19 20:00 POC ABG pO2 159 (80-105) H 03/30/19 05:58 ABG pO2 85.8 mm Hg (80.0-90.0) 03/30/19 20:00 POC ABG HCO3 17.3 (22-26 mml/L) 03/30/19 05:58 ABG HCO3 20.3 mmol/L (20.0-26.0) 03/30/19 20:00 POC ABG Total CO2 19 (23-27mmol/L) 03/30/19 05:58 POC ABG O2 Sat 99 03/30/19 05:58 ABG O2 Saturation 96.0 % (95.0-99.0) 03/30/19 20:00 ABG O2 Content 14.6 (0.0-44) 03/30/19 20:00 POC ABG Base Excess -12 ((-2) - (+3)mmol/L) 03/30/19 05:58 ABG Base Excess -5.9 mmol/L (-2.0-3.0) L 03/30/19 20:00 ABG Hemoglobin 11.0 gm/dl (14.0-18.0) L 03/30/19 20:00 ABG Carboxyhemoglobin 1.4 % (0.0-5.0) 03/30/19 20:00 ABG Methemoglobin 0.7 % (0.0-1.5) 03/30/19 20:00 94.1 % (95.0-99.0) L 03/30/19 20:00 35 % 03/30/19 20:00 Sodium 135 mmol/L (137-145) L 03/31/19 04:39 Potassium 4.0 mmol/L (3.6-5.0) 03/31/19 04:39 Chloride 92.7 mmol/L (98-107) L 03/31/19 04:39 Carbon Dioxide 23 mmol/L (22-30) 03/31/19 04:39 23 mmol/L 03/31/19 04:39 BUN 92 mg/dL (9-20) H 03/31/19 04:39 4.5 mg/dL (0.8-1.5) H 03/31/19 04:39 Estimated GFR 13 ml/min 03/31/19 04:39 20 % 03/31/19 04:39 Glucose 344 mg/dL (75-100) H 03/31/19 04:39 POC Glucose 410 (70-105) H 03/31/19 12:08 6.4 % (4-6) H 03/29/19 23:37 Lactic Acid 1.00 mmol/L (0.7-2.0) 03/29/19 13:18 Calcium 9.0 mg/dL (8.4-10.2) 03/31/19 04:39 Phosphorus 7.50 mg/dL (2.5-4.5) H 03/30/19 10:12 0.60 mg/dL (0.1-1.2) 03/29/19 13:18 AST 48 units/L (5-40) H 03/29/19 13:18 ALT 23 units/L (7-56) 03/29/19 13:18 136 units/L (35-129) H 03/29/19 13:18 2408 units/L (55-170) H 03/29/19 13:18 CK-MB (CK-2) 17.6 ng/mL (0.0-4.0) H 03/29/19 13:18 CK-MB (CK-2) Rel Index 0.7 (0-4) 03/29/19 13:18 < 0.010 ng/mL (0.00-0.029) 03/31/19 08:43 8.0 g/dL (6.3-8.2) 03/29/19 13:18 3.9 g/dL (3.9-5) 03/29/19 13:18 1.0 % 03/29/19 13:18 Yellow (Yellow) 03/29/19 12:29 Slightly-cloudy (Clear) 03/29/19 12:29 5.0 (5.0-7.0) 03/29/19 12:29 Ur Specific [place] 1.017 (1.003-1.030) 03/29/19 12:29 <15 mg/dl mg/dL (Negative) 03/29/19 12:29 50 mg/dL (Negative) 03/29/19 12:29 Tr mg/dL (Negative) 03/29/19 12:29 Sm (Negative) 03/29/19 12:29 Neg (Negative) 03/29/19 12:29 Neg (Negative) 03/29/19 12:29 < 2.0 mg/dL (<2.0) 03/29/19 12:29 Ur Leukocyte Esterase Neg (Negative) 03/29/19 12:29 3.0 /HPF (0.0-6.0) 03/29/19 12:29 1.0 /HPF (0.0-6.0) 03/29/19 12:29 Few /HPF 03/29/19 12:29 None seen (None Seen) 03/30/19 10:00 227.1 mg/dL (0.1-20.0) H 03/30/19 10:00 230.8 mg/dL (0.1-20.0) H 03/30/19 10:00 Protein/Creatinin Ratio 0.14 03/30/19 10:00 22 mmol/L 03/30/19 10:00 31 mg/dL (5-11.8) H 03/30/19 10:00 32 mg/dL (5-11.8) H 03/30/19 10:00 Presumptive negative 03/30/19 10:00 Presumptive negative 03/30/19 10:00 Ur Barbiturates Screen Presumptive negative 03/30/19 10:00 Ur Phencyclidine Scrn Presumptive negative 03/30/19 10:00 Ur Amphetamines Screen Presumptive positive 03/30/19 10:00 U Benzodiazepines Scrn Presumptive negative 03/30/19 10:00 Presumptive negative 03/30/19 10:00 U Marijuana (THC) Screen Presumptive negative 03/30/19 10:00 Disclamer 03/30/19 10:00 Hepatitis A IgM Ab Non-reactive (NonReactive) 03/29/19 19:41 Hep Bs Antigen Non-reactive (Negative) 03/29/19 19:41 Hep B Core IgM Ab Non-reactive (NonReactive) 03/29/19 19:41 Non-reactive (NonReactive) 03/29/19 19:41 Active Medications - Current Medications Current Medications: Generic Name Dose Route Start Last Admin Trade Name Freq PRN Reason Stop Dose Admin Acetaminophen 650 mg 03/29/19 22:13 Tylenol PO Q4H PRN Pain MILD(1-3)/Fever >100.5/ARIAS Albuterol 2.5 mg 03/29/19 22:15 Proventil IH Q4HRT PRN Shortness Of Breath Albuterol/Ipratropium 1 ampul 03/31/19 14:00 03/31/19 13:38 Duoneb *Not For Prn Use* IH 1 ampul TIDRT [facility] Administration Amlodipine Besylate 10 mg 03/31/19 10:00 03/31/19 09:56 Norvasc PO 10 mg QDAY [facility] Administration Apixaban 5 mg 03/31/19 02:00 03/31/19 09:57 Eliquis PO 5 mg BID [facility] Administration Protocol Atorvastatin Calcium 40 mg 03/31/19 10:00 03/31/19 09:57 Lipitor PO 40 mg DAILY [facility] Administration Benzonatate 100 mg 03/31/19 14:00 03/31/19 13:19 Tessalon Perles PO 100 mg Q8HR [facility] Administration Dextrose 50 ml 03/30/19 16:21 D50w (25gm) Syringe IV PRN PRN Hypoglycemia Famotidine 10 mg 03/31/19 10:00 08/18/19 09:56 Pepcid PO 10 mg BID [facility] Administration Fluoxetine HCl 10 mg 03/31/19 02:00 03/31/19 09:58 Prozac PO 10 mg QDAY [facility] Administration Glimepiride 2 mg 03/31/19 08:00 03/31/19 07:59 Amaryl PO 2 mg BIDDIAB [facility] Administration Guaifenesin 5 ml 03/31/19 13:07 03/31/19 13:24 Guaifenesin Dm Syrup PO 5 ml Q6H PRN Administration Cough Hydralazine HCl 10 mg 03/31/19 01:41 Apresoline IV Q4HR PRN Blood Pressure Hydromorphone HCl 0.25 mg 03/31/19 11:39 Dilaudid IV Q3H PRN Pain , Severe (7-10) Sodium Bicarbonate 150 meq/ 1,150 mls @ 75 mls/hr 03/29/19 16:00 03/30/19 23:15 Dextrose IV 75 mls/hr DIRECT [facility] Administration Levofloxacin/Dextrose 500 mg in 100 mls @ 100 mls/hr 03/31/19 23:00 Levaquin 500mg/100ml IV Q48H [facility] Insulin Human Lispro 0 unit 03/31/19 00:00 03/31/19 12:14 Humalog SUB-Q 10 unit Q6HR [facility] Administration Protocol Lorazepam 2 mg 03/31/19 11:35 Ativan IV Q1HR PRN CIWA-Ar 8-15 Lorazepam 4 mg 03/31/19 11:35 Ativan PO Q1HR PRN CIWA-Ar 16-25 Lorazepam 4 mg 03/31/19 11:35 Ativan IV Q15MIN PRN CIWA-Ar >25 Methylprednisolone Sodium Succinate 60 mg 03/30/19 13:00 03/31/19 12:13 Solu-Medrol IV 60 mg Q8H [facility] Administration Metoclopramide HCl 5 mg 03/29/19 22:13 03/30/19 20:54 Reglan IV 5 mg Q6H PRN Administration Nausea And Vomiting Ondansetron HCl 4 mg 03/29/19 22:13 Zofran IV Q8H PRN Nausea And Vomiting Sodium Chloride 10 ml 03/30/19 10:00 03/31/19 09:58 Sodium Chloride Flush Syringe 10 Ml IV 10 ml BID [facility] Administration Sodium Chloride 10 ml 03/29/19 22:13 Sodium Chloride Flush Syringe 10 Ml IV PRN PRN LINE FLUSH Nutrition/Malnutrition Assess - Dietary Evaluation Nutrition/Malnutrition Findings: Nutrition Notes Start: 03/30/19 09:51 Freq: Status: Active Protocol: Document 03/30/19 09:52 FRANCHESCAJUAN (Rec: 03/30/19 09:56 CHELA [email or web address]) Nutrition Notes 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 Per nephrology, no need for HD at this time. Burn Absent Trauma Absent Is patient on ventilator? No Is Patient Ambulatory and/or Out of Bed No REE-([facility]-confined to bed) 2464.656 Kcal/Kg value to use for calculation 14 Approximate Energy Requirements Using 1810 kcal/Kg Calculation Used for Recommendations Kcal/kg Additional Notes Pro needs 2.5g/kg IBW: 161g/ day Fluid needs per Nutrition Intervention Follow-Up By: 04/02/19 Additional Comments F/U: intakes, renal function
[2019-03-31] MEDS: ATIVAN PO PRN (16:39)
[2019-03-31] MEDS: SODIUM BICARBONATE 150 MEQ in D5W 1,000 ML IV SCH (19:14)
[2019-03-31] MEDS ORDERED: LANTUS SUB-Q SCH (22:00)
[2019-03-31] MEDS: LEVAQUIN 500MG/100ML 500 MG/100 ML BAG IV SCH (22:27)
[2019-03-31] MEDS: ATIVAN IV PRN (23:51)
[2019-04-01] MEDS: ATIVAN IV PRN ×2 (02:29→04:49)
[2019-04-01] MEDS: SOLU-Medrol IV SCH ×3 (04:51→21:53)
[2019-04-01] MEDS: TESSALON PERLES PO SCH ×3 (05:43→21:53)
[2019-04-01] MEDS: HumaLOG SUB-Q SCH ×6 (05:43→17:16)
[2019-04-01] MEDS: DUONEB *Not for PRN Use IH SCH ×3 (08:10→19:35)
[2019-04-01] MEDS: AMARYL PO SCH (09:31)
[2019-04-01] MEDS: PEPCID PO SCH ×2 (09:32→21:53)
[2019-04-01] MEDS: PROzac PO SCH (09:32)
[2019-04-01] MEDS: NORVASC PO SCH (09:32)
[2019-04-01] MEDS: ELIQUIS PO SCH ×2 (09:32→21:52)
[2019-04-01] MEDS: SODIUM CHLORIDE FLUSH SYRINGE 10 ML IV SCH ×2 (09:33→21:56)
[2019-04-01] MEDS: LANTUS SUB-Q SCH (12:01)
--- NOTE | 2019-04-01 12:38 | Progress Note ---
Hospitalist Physical - Constitutional Vitals: Temp Pulse Resp BP Pulse Ox 97.9 F 174 H 21 136/79 94 04/01/19 03:56 04/01/19 11:01 04/01/19 11:01 04/01/19 11:01 04/01/19 11:01 General appearance: Present: mild distress (sob) Results - Labs CBC & Chem 7: 03/31/19 04:39 03/31/19 04:39 Labs: Laboratory Last Values WBC 4.7 K/mm3 (4.5-11.0) 03/31/19 04:39 RBC 3.08 M/mm3 (3.65-5.03) L 03/31/19 04:39 Hgb 10.3 gm/dl (11.8-15.2) L 03/31/19 04:39 Hct 30.6 % (35.5-45.6) L 03/31/19 04:39 MCV 99 fl (84-94) H 03/31/19 04:39 MCH 33 pg (28-32) H 03/31/19 04:39 MCHC 34 % (32-34) 03/31/19 04:39 RDW 15.1 % (13.2-15.2) 03/31/19 04:39 Plt Count 266 K/mm3 (140-440) 03/31/19 04:39 Lymph % (Auto) 6.5 % (13.4-35.0) L 03/31/19 04:39 [place] % (Auto) 6.8 % (0.0-7.3) 03/31/19 04:39 Eos % (Auto) 0.0 % (0.0-4.3) 03/31/19 04:39 Baso % (Auto) 0.1 % (0.0-1.8) 03/31/19 04:39 Lymph # 0.3 K/mm3 (1.2-5.4) L 03/31/19 04:39 [place] # 0.3 K/mm3 (0.0-0.8) 03/31/19 04:39 Eos # 0.0 K/mm3 (0.0-0.4) 03/31/19 04:39 Baso # 0.0 K/mm3 (0.0-0.1) 03/31/19 04:39 Seg Neutrophils % 86.6 % (40.0-70.0) H 03/31/19 04:39 Seg Neutrophils # 4.1 K/mm3 (1.8-7.7) 03/31/19 04:39 POC ABG pH 7.143 (7.35-7.45) L 03/30/19 05:58 ABG pH 7.293 pH Units (7.350-7.450) L 03/30/19 20:00 POC ABG pCO2 50.5 (35-45) H 03/30/19 05:58 ABG pCO2 43.0 mm Hg 03/30/19 20:00 POC ABG pO2 159 (80-105) H 03/30/19 05:58 ABG pO2 85.8 mm Hg (80.0-90.0) 03/30/19 20:00 POC ABG HCO3 17.3 (22-26 mml/L) 03/30/19 05:58 ABG HCO3 20.3 mmol/L (20.0-26.0) 03/30/19 20:00 POC ABG Total CO2 19 (23-27mmol/L) 03/30/19 05:58 POC ABG O2 Sat 99 03/30/19 05:58 ABG O2 Saturation 96.0 % (95.0-99.0) 03/30/19 20:00 ABG O2 Content 14.6 (0.0-44) 03/30/19 20:00 POC ABG Base Excess -12 ((-2) - (+3)mmol/L) 03/30/19 05:58 ABG Base Excess -5.9 mmol/L (-2.0-3.0) L 03/30/19 20:00 ABG Hemoglobin 11.0 gm/dl (14.0-18.0) L 03/30/19 20:00 ABG Carboxyhemoglobin 1.4 % (0.0-5.0) 03/30/19 20:00 ABG Methemoglobin 0.7 % (0.0-1.5) 03/30/19 20:00 94.1 % (95.0-99.0) L 03/30/19 20:00 35 % 03/30/19 20:00 Sodium 135 mmol/L (137-145) L 03/31/19 04:39 Potassium 4.0 mmol/L (3.6-5.0) 03/31/19 04:39 Chloride 92.7 mmol/L (98-107) L 03/31/19 04:39 Carbon Dioxide 23 mmol/L (22-30) 03/31/19 04:39 23 mmol/L 03/31/19 04:39 BUN 92 mg/dL (9-20) H 03/31/19 04:39 4.5 mg/dL (0.8-1.5) H 03/31/19 04:39 Estimated GFR 13 ml/min 03/31/19 04:39 20 % 03/31/19 04:39 Glucose 344 mg/dL (75-100) H 03/31/19 04:39 POC Glucose 283 (70-105) H 04/01/19 11:35 6.4 % (4-6) H 03/29/19 23:37 Lactic Acid 1.00 mmol/L (0.7-2.0) 03/29/19 13:18 Calcium 9.0 mg/dL (8.4-10.2) 03/31/19 04:39 Phosphorus 7.50 mg/dL (2.5-4.5) H 03/30/19 10:12 0.60 mg/dL (0.1-1.2) 03/29/19 13:18 AST 48 units/L (5-40) H 03/29/19 13:18 ALT 23 units/L (7-56) 03/29/19 13:18 136 units/L (35-129) H 03/29/19 13:18 2408 units/L (55-170) H 03/29/19 13:18 CK-MB (CK-2) 17.6 ng/mL (0.0-4.0) H 03/29/19 13:18 CK-MB (CK-2) Rel Index 0.7 (0-4) 03/29/19 13:18 < 0.010 ng/mL (0.00-0.029) 03/31/19 08:43 8.0 g/dL (6.3-8.2) 03/29/19 13:18 3.9 g/dL (3.9-5) 03/29/19 13:18 1.0 % 08/16/19 13:18 Yellow (Yellow) 03/29/19 12:29 Slightly-cloudy (Clear) 03/29/19 12:29 5.0 (5.0-7.0) 03/29/19 12:29 Ur Specific [place] 1.017 (1.003-1.030) 03/29/19 12:29 <15 mg/dl mg/dL (Negative) 03/29/19 12:29 50 mg/dL (Negative) 03/29/19 12:29 Tr mg/dL (Negative) 03/29/19 12:29 Sm (Negative) 03/29/19 12:29 Neg (Negative) 03/29/19 12:29 Neg (Negative) 03/29/19 12:29 < 2.0 mg/dL (<2.0) 03/29/19 12:29 Ur Leukocyte Esterase Neg (Negative) 03/29/19 12:29 3.0 /HPF (0.0-6.0) 03/29/19 12:29 1.0 /HPF (0.0-6.0) 03/29/19 12:29 Few /HPF 03/29/19 12:29 None seen (None Seen) 03/30/19 10:00 227.1 mg/dL (0.1-20.0) H 03/30/19 10:00 230.8 mg/dL (0.1-20.0) H 03/30/19 10:00 Protein/Creatinin Ratio 0.14 03/30/19 10:00 22 mmol/L 03/30/19 10:00 31 mg/dL (5-11.8) H 03/30/19 10:00 32 mg/dL (5-11.8) H 03/30/19 10:00 Presumptive negative 03/30/19 10:00 Presumptive negative 03/30/19 10:00 Ur Barbiturates Screen Presumptive negative 03/30/19 10:00 Ur Phencyclidine Scrn Presumptive negative 03/30/19 10:00 Ur Amphetamines Screen Presumptive positive 03/30/19 10:00 U Benzodiazepines Scrn Presumptive negative 03/30/19 10:00 Presumptive negative 03/30/19 10:00 U Marijuana (THC) Screen Presumptive negative 03/30/19 10:00 Disclamer 03/30/19 10:00 Hepatitis A IgM Ab Non-reactive (NonReactive) 03/29/19 19:41 Hep Bs Antigen Non-reactive (Negative) 03/29/19 19:41 Hep B Core IgM Ab Non-reactive (NonReactive) 03/29/19 19:41 Non-reactive (NonReactive) 03/29/19 19:41 Active Medications - Current Medications Current Medications: Generic Name Dose Route Start Last Admin Trade Name Freq PRN Reason Stop Dose Admin Acetaminophen 650 mg 03/29/19 22:13 Tylenol PO Q4H PRN Pain MILD(1-3)/Fever >100.5/ARIAS Albuterol 2.5 mg 03/29/19 22:15 Proventil IH Q4HRT PRN Shortness Of Breath Albuterol/Ipratropium 1 ampul 03/31/19 14:00 04/01/19 08:10 Duoneb *Not For Prn Use* IH 1 ampul TIDRT RADHA Administration Amlodipine Besylate 10 mg 03/31/19 10:00 04/01/19 09:32 Norvasc PO 10 mg QDAY RADHA Administration Apixaban 5 mg 03/31/19 02:00 04/01/19 09:32 Eliquis PO 5 mg BID RADHA Administration Protocol Atorvastatin Calcium 40 mg 03/31/19 10:00 04/01/19 09:32 Lipitor PO 40 mg DAILY RADHA Administration Benzonatate 100 mg 03/31/19 14:00 04/01/19 05:43 Tessalon Perles PO 100 mg Q8HR RADHA Administration Dextrose 50 ml 03/30/19 16:21 D50w (25gm) Syringe IV PRN PRN Hypoglycemia Famotidine 10 mg 03/31/19 10:00 04/01/19 09:32 Pepcid PO 10 mg BID RADHA Administration Fluoxetine HCl 10 mg 03/31/19 02:00 04/01/19 09:32 Prozac PO 10 mg QDAY RADHA Administration Guaifenesin 5 ml 03/31/19 13:07 03/31/19 13:24 Guaifenesin Dm Syrup PO 5 ml Q6H PRN Administration Cough Hydralazine HCl 10 mg 03/31/19 01:41 Apresoline IV Q4HR PRN Blood Pressure Hydromorphone HCl 0.25 mg 03/31/19 11:39 Dilaudid IV Q3H PRN Pain , Severe (7-10) Sodium Bicarbonate 150 meq/ 1,150 mls @ 75 mls/hr 03/29/19 16:00 03/31/19 19:14 Dextrose IV 75 mls/hr DIRECT RADHA Administration Levofloxacin/Dextrose 500 mg in 100 mls @ 100 mls/hr 03/31/19 23:00 03/31/19 22:27 Levaquin 500mg/100ml IV 100 mls/hr Q48H RADHA Administration Insulin Glargine 30 units 04/01/19 11:00 04/01/19 12:01 Lantus SUB-Q 30 units BID RADHA Administration Insulin Human Lispro 0 unit 03/31/19 00:00 04/01/19 12:02 Humalog SUB-Q 6 unit Q6HR RADHA Administration Protocol Insulin Human Lispro 10 unit 04/01/19 07:30 04/01/19 12:02 Humalog SUB-Q 10 unit AC RADHA Administration Lorazepam 2 mg 03/31/19 11:35 04/01/19 04:49 Ativan IV 2 mg Q1HR PRN Administration CIWA-Ar 8-15 Lorazepam 4 mg 03/31/19 11:35 03/31/19 16:39 Ativan PO 4 mg Q1HR PRN Administration CIWA-Ar 16-25 Lorazepam 4 mg 03/31/19 11:35 Ativan IV Q15MIN PRN CIWA-Ar >25 Methylprednisolone Sodium Succinate 60 mg 03/30/19 13:00 04/01/19 12:03 Solu-Medrol IV 60 mg Q8H RADHA Administration Metoclopramide HCl 5 mg 03/29/19 22:13 03/30/19 20:54 Reglan IV 5 mg Q6H PRN Administration Nausea And Vomiting Ondansetron HCl 4 mg 03/29/19 22:13 Zofran IV Q8H PRN Nausea And Vomiting Sodium Chloride 10 ml 03/30/19 10:00 04/01/19 09:33 Sodium Chloride Flush Syringe 10 Ml IV 10 ml BID RADHA Administration Sodium Chloride 10 ml 03/29/19 22:13 Sodium Chloride Flush Syringe 10 Ml IV PRN PRN LINE FLUSH Nutrition/Malnutrition Assess - Dietary Evaluation Nutrition/Malnutrition Findings: Nutrition Notes Start: 03/30/19 09:51 Freq: Status: Active Protocol: Document 03/30/19 09:52 [email or web address] (Rec: 03/30/19 09:56 CHELA [email or web address]) Nutrition Notes 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 Per nephrology, no need for HD at this time. Burn Absent Trauma Absent Is patient on ventilator? No Is Patient Ambulatory and/or Out of Bed No REE-([place]-confined to bed) 2464.656 Kcal/Kg value to use for calculation 14 Approximate Energy Requirements Using 1810 kcal/Kg Calculation Used for Recommendations Kcal/kg Additional Notes Pro needs 2.5g/kg IBW: 161g/ day Fluid needs per MD Nutrition Intervention Follow-Up By: 04/02/19 Additional Comments F/U: intakes, renal function
--- NOTE | 2019-04-01 13:26 | Progress Note ---
Assessment and Plan concerned about alchol withdrawl in this pt. Recently stop alcohol use 3 days prior to hospitalization Also positive drug screen Continue CITX protocol renal fn improving continue to monitor closely continue on meds steroids taper continue BiPAP at night and prn Will need to rept sleep study compliance w meds weight loss needed Subjective Date of service: 04/01/19 Interval history: Remain somewhat confused and disoriented. Currently on [facility] protocol Objective Vital Signs - 12hr 04/01/19 04/01/19 04/01/19 02:00 03:01 03:48 Temperature Pulse Rate 93 H 110 H 102 H Pulse Rate [ Anterior Bilateral Throughout] Respiratory 21 16 Rate Respiratory Rate [Anterior Bilateral Throughout] Blood Pressure 149/77 145/76 O2 Sat by Pulse 92 94 Oximetry 04/01/19 04/01/19 04/01/19 03:49 03:56 04:00 Temperature 97.9 F Pulse Rate 106 H Pulse Rate [ Anterior Bilateral Throughout] Respiratory 14 19 Rate Respiratory Rate [Anterior Bilateral Throughout] Blood Pressure 132/86 O2 Sat by Pulse 93 96 Oximetry 04/01/19 04/01/19 04/01/19 05:00 06:00 06:17 Temperature Pulse Rate 110 H 107 H 111 H Pulse Rate [ Anterior Bilateral Throughout] Respiratory 20 20 20 Rate Respiratory Rate [Anterior Bilateral Throughout] Blood Pressure 139/86 140/74 139/86 O2 Sat by Pulse 96 93 96 Oximetry 04/01/19 04/01/19 04/01/19 07:00 08:00 08:01 Temperature Pulse Rate 113 H 120 H Pulse Rate [ Anterior Bilateral Throughout] Respiratory 20 22 28 H Rate Respiratory Rate [Anterior Bilateral Throughout] Blood Pressure 140/89 130/79 O2 Sat by Pulse 92 92 94 Oximetry 04/01/19 04/01/19 04/01/19 08:05 08:13 08:16 Temperature Pulse Rate Pulse Rate [ 139 H Anterior Bilateral Throughout] Respiratory Rate Respiratory 18 Rate [Anterior Bilateral Throughout] Blood Pressure O2 Sat by Pulse 96 96 Oximetry 04/01/19 04/01/19 04/01/19 09:00 09:32 10:00 Temperature Pulse Rate 177 H 128 H 112 H Pulse Rate [ Anterior Bilateral Throughout] Respiratory 23 17 Rate Respiratory Rate [Anterior Bilateral Throughout] Blood Pressure 143/74 143/74 136/79 O2 Sat by Pulse 92 93 Oximetry 04/01/19 04/01/19 04/01/19 11:00 11:01 12:00 Temperature Pulse Rate 155 H 174 H 107 H Pulse Rate [ Anterior Bilateral Throughout] Respiratory 21 18 Rate Respiratory Rate [Anterior Bilateral Throughout] Blood Pressure 136/79 141/78 O2 Sat by Pulse 94 91 Oximetry 04/01/19 13:01 Temperature Pulse Rate 95 H Pulse Rate [ Anterior Bilateral Throughout] Respiratory 17 Rate Respiratory Rate [Anterior Bilateral Throughout] Blood Pressure 117/61 O2 Sat by Pulse 90 Oximetry Constitutional: no acute distress, other (obese) Eyes: non-icteric ENT: oropharynx moist Neck: supple Ascultation: Bilateral: clear Percussion: Bilateral: not dull Cardiovascular: regular rate and rhythm Gastrointestinal: normoactive bowel sounds, soft, non-distended, other (obese) Integumentary: normal Extremities: no cyanosis Neurologic: non-focal exam Psychiatric: mood appropriate CBC and BMP: 03/31/19 04:39 03/31/19 04:39 ABG, PT/INR, D-dimer: ABG POC ABG pH 7.143 (7.35-7.45) L 03/30/19 05:58 ABG pH 7.293 pH Units (7.350-7.450) L 03/30/19 20:00 POC ABG pCO2 50.5 (35-45) H 03/30/19 05:58 ABG pCO2 43.0 mm Hg 03/30/19 20:00 POC ABG pO2 159 (80-105) H 03/30/19 05:58 ABG pO2 85.8 mm Hg (80.0-90.0) 03/30/19 20:00 POC ABG HCO3 17.3 (22-26 mml/L) 03/30/19 05:58 POC ABG Total CO2 19 (23-27mmol/L) 03/30/19 05:58 POC ABG O2 Sat 99 03/30/19 05:58 ABG O2 Saturation 96.0 % (95.0-99.0) 03/30/19 20:00 Abnormal lab findings: Abnormal Labs 03/29/19 03/29/19 03/29/19 13:18 13:18 18:22 RBC 3.24 L Hgb 10.6 L Hct 33.2 L MCV 103 H MCH 33 H RDW 15.5 H Lymph % (Auto) 9.4 L [place] % (Auto) 7.8 H Lymph # 0.8 L Seg Neutrophils % 81.5 H POC ABG pH 7.122 L ABG pH POC ABG pCO2 45.4 H POC ABG pO2 ABG pO2 ABG HCO3 ABG O2 Saturation ABG Base Excess ABG Hemoglobin Oxyhemoglobin Sodium 132 L Potassium 6.6 H* Chloride 94.9 L Carbon Dioxide 14 L BUN 73 H Creatinine 8.6 H Glucose POC Glucose Hemoglobin A1c Phosphorus AST 48 H Alkaline Phosphatase 136 H Total Creatine Kinase 2408 H CK-MB (CK-2) 17.6 H Urine Creatinine Urine Total Protein 03/29/19 03/30/19 03/30/19 23:37 05:58 10:00 RBC Hgb Hct MCV MCH RDW Lymph % (Auto) [place] % (Auto) Lymph # Seg Neutrophils % POC ABG pH 7.143 L ABG pH POC ABG pCO2 50.5 H POC ABG pO2 159 H ABG pO2 ABG HCO3 ABG O2 Saturation ABG Base Excess ABG Hemoglobin Oxyhemoglobin Sodium Potassium Chloride Carbon Dioxide BUN Creatinine Glucose POC Glucose Hemoglobin A1c 6.4 H Phosphorus AST Alkaline Phosphatase Total Creatine Kinase CK-MB (CK-2) Urine Creatinine 227.1 H Urine Total Protein 31 H 03/30/19 03/30/19 03/30/19 10:00 10:12 10:12 RBC 3.17 L Hgb 10.5 L Hct 31.8 L MCV 100 H MCH 33 H RDW Lymph % (Auto) 8.1 L [place] % (Auto) Lymph # 0.5 L Seg Neutrophils % 88.0 H POC ABG pH ABG pH POC ABG pCO2 POC ABG pO2 ABG pO2 ABG HCO3 ABG O2 Saturation ABG Base Excess ABG Hemoglobin Oxyhemoglobin Sodium 132 L Potassium 6.6 H* Chloride 91.9 L Carbon Dioxide 19 L BUN 89 H Creatinine 7.2 H Glucose 302 H POC Glucose Hemoglobin A1c Phosphorus 7.50 H AST Alkaline Phosphatase Total Creatine Kinase CK-MB (CK-2) Urine Creatinine 230.8 H Urine Total Protein 32 H 03/30/19 03/30/19 03/30/19 11:42 16:54 17:45 RBC Hgb Hct MCV MCH RDW Lymph % (Auto) [place] % (Auto) Lymph # Seg Neutrophils % POC ABG pH ABG pH 7.294 L POC ABG pCO2 POC ABG pO2 ABG pO2 67.1 L ABG HCO3 19.4 L ABG O2 Saturation 91.4 L ABG Base Excess -6.7 L ABG Hemoglobin 9.9 L Oxyhemoglobin 89.4 L Sodium Potassium Chloride Carbon Dioxide BUN Creatinine Glucose POC Glucose 275 H 361 H Hemoglobin A1c Phosphorus AST Alkaline Phosphatase Total Creatine Kinase CK-MB (CK-2) Urine Creatinine Urine Total Protein 03/30/19 03/30/19 03/30/19 20:00 20:28 23:27 RBC Hgb Hct MCV MCH RDW Lymph % (Auto) [place] % (Auto) Lymph # Seg Neutrophils % POC ABG pH ABG pH 7.293 L POC ABG pCO2 POC ABG pO2 ABG pO2 ABG HCO3 ABG O2 Saturation ABG Base Excess -5.9 L ABG Hemoglobin 11.0 L Oxyhemoglobin 94.1 L Sodium 134 L Potassium Chloride 92.9 L Carbon Dioxide 19 L BUN 93 H Creatinine 5.5 H Glucose 374 H POC Glucose 372 H Hemoglobin A1c Phosphorus AST Alkaline Phosphatase Total Creatine Kinase CK-MB (CK-2) Urine Creatinine Urine Total Protein 03/31/19 03/31/19 03/31/19 04:39 04:39 05:27 RBC 3.08 L Hgb 10.3 L Hct 30.6 L MCV 99 H MCH 33 H RDW Lymph % (Auto) 6.5 L [place] % (Auto) Lymph # 0.3 L Seg Neutrophils % 86.6 H POC ABG pH ABG pH POC ABG pCO2 POC ABG pO2 ABG pO2 ABG HCO3 ABG O2 Saturation ABG Base Excess ABG Hemoglobin Oxyhemoglobin Sodium 135 L Potassium Chloride 92.7 L Carbon Dioxide BUN 92 H Creatinine 4.5 H Glucose 344 H POC Glucose 354 H Hemoglobin A1c Phosphorus AST Alkaline Phosphatase Total Creatine Kinase CK-MB (CK-2) Urine Creatinine Urine Total Protein 03/31/19 03/31/19 03/31/19 08:03 12:08 17:08 RBC Hgb Hct MCV MCH RDW Lymph % (Auto) [place] % (Auto) Lymph # Seg Neutrophils % POC ABG pH ABG pH POC ABG pCO2 POC ABG pO2 ABG pO2 ABG HCO3 ABG O2 Saturation ABG Base Excess ABG Hemoglobin Oxyhemoglobin Sodium Potassium Chloride Carbon Dioxide BUN Creatinine Glucose POC Glucose 375 H 410 H 361 H Hemoglobin A1c Phosphorus AST Alkaline Phosphatase Total Creatine Kinase CK-MB (CK-2) Urine Creatinine Urine Total Protein 03/31/19 04/01/19 04/01/19 23:12 05:22 08:28 RBC Hgb Hct MCV MCH RDW Lymph % (Auto) [place] % (Auto) Lymph # Seg Neutrophils % POC ABG pH ABG pH POC ABG pCO2 POC ABG pO2 ABG pO2 ABG HCO3 ABG O2 Saturation ABG Base Excess ABG Hemoglobin Oxyhemoglobin Sodium Potassium Chloride Carbon Dioxide BUN Creatinine Glucose POC Glucose 355 H 300 H 259 H Hemoglobin A1c Phosphorus AST Alkaline Phosphatase Total Creatine Kinase CK-MB (CK-2) Urine Creatinine Urine Total Protein 04/01/19 11:35 RBC Hgb Hct MCV MCH RDW Lymph % (Auto) [place] % (Auto) Lymph # Seg Neutrophils % POC ABG pH ABG pH POC ABG pCO2 POC ABG pO2 ABG pO2 ABG HCO3 ABG O2 Saturation ABG Base Excess ABG Hemoglobin Oxyhemoglobin Sodium Potassium Chloride Carbon Dioxide BUN Creatinine Glucose POC Glucose 283 H Hemoglobin A1c Phosphorus AST Alkaline Phosphatase Total Creatine Kinase CK-MB (CK-2) Urine Creatinine Urine Total Protein
[2019-04-01] MEDS ORDERED: CARDIZEM IV PRN (13:29)
--- NOTE | 2019-04-01 13:43 | Progress Note ---
Assessment and Plan acute renal failure hyperkalemia improved copd exacerbation, sleep apnea hx htn,dm,atrial fib psvt Plan: Change Amlodipine to Diltiazem for control of intermittent SVT. . Subjective Interval history: patient goes off to sleep while talking. using Bi Pap. Objective Vital Signs Temp Pulse Pulse Resp Resp BP Pulse Ox 04/01/19 13:01 95 H 17 117/61 90 04/01/19 12:00 107 H 18 141/78 91 04/01/19 11:01 174 H 21 136/79 94 04/01/19 11:00 155 H 04/01/19 10:00 112 H 17 136/79 93 04/01/19 09:32 128 H 143/74 04/01/19 09:00 177 H 23 143/74 92 04/01/19 08:16 96 04/01/19 08:13 139 H 18 04/01/19 08:05 96 04/01/19 08:01 120 H 28 H 130/79 94 04/01/19 08:00 22 92 04/01/19 07:00 113 H 20 140/89 92 04/01/19 06:17 111 H 20 139/86 96 04/01/19 06:00 107 H 20 140/74 93 04/01/19 05:00 110 H 20 139/86 96 04/01/19 04:00 106 H 19 132/86 96 04/01/19 03:56 97.9 F 04/01/19 03:49 14 93 04/01/19 03:48 102 H 04/01/19 03:01 110 H 16 145/76 94 04/01/19 02:00 93 H 21 149/77 92 04/01/19 01:00 173 H 18 136/76 94 04/01/19 00:47 98.2 F 04/01/19 00:18 14 93 04/01/19 00:01 159 H 19 136/76 91 03/31/19 23:00 91 H 12 147/85 97 03/31/19 22:00 95 H 10 L 142/78 92 03/31/19 21:37 161 H 15 122/66 94 03/31/19 21:01 164 H 14 122/66 96 03/31/19 20:35 106 H 16 120/77 96 03/31/19 20:30 96 03/31/19 20:16 97.4 F L 03/31/19 20:01 164 H 15 120/77 90 03/31/19 20:00 103 H 14 21 93 03/31/19 19:21 165 H 14 139/75 91 03/31/19 19:11 168 H 16 139/75 92 03/31/19 19:01 163 H 15 139/75 93 03/31/19 19:00 110 H 03/31/19 18:51 164 H 18 135/78 91 03/31/19 18:41 165 H 19 135/78 91 03/31/19 18:31 103 H 23 135/78 91 03/31/19 18:21 163 H 15 135/78 90 03/31/19 18:11 160 H 15 135/78 90 03/31/19 18:01 160 H 15 135/78 91 03/31/19 17:51 161 H 27 H 131/67 92 03/31/19 17:46 98.8 F 03/31/19 17:41 162 H 14 131/67 89 03/31/19 17:31 161 H 14 131/67 89 03/31/19 17:21 159 H 15 131/67 90 03/31/19 17:11 160 H 15 131/67 90 03/31/19 17:01 96 H 16 131/67 93 03/31/19 16:51 160 H 15 122/73 89 03/31/19 16:41 104 H 22 141/77 93 03/31/19 16:31 165 H 18 141/77 93 03/31/19 16:21 169 H 32 H 126/63 03/31/19 16:11 94 H 14 126/63 89 03/31/19 16:01 93 H 12 126/63 89 03/31/19 16:00 12 89 03/31/19 15:51 162 H 15 124/64 88 03/31/19 15:41 97 H 17 124/64 90 03/31/19 15:31 163 H 16 124/64 90 03/31/19 15:21 107 H 19 124/64 89 03/31/19 15:11 100 H 19 124/64 90 03/31/19 15:01 108 H 32 H 124/64 94 03/31/19 15:00 113 H 03/31/19 14:51 99 H 20 129/68 91 03/31/19 14:41 104 H 21 129/68 92 03/31/19 14:31 107 H 19 129/68 91 03/31/19 14:21 105 H 20 129/68 90 03/31/19 14:11 162 H 20 129/68 90 03/31/19 14:01 102 H 22 129/68 93 03/31/19 13:51 111 H 21 156/114 93 03/31/19 13:41 103 H 23 156/114 97 - Physical Examination HEENT: Positive: PERRL, Normocephaly Neck: Positive: neck supple. Negative: JVD/HJR, Bruit Neuro: Positive: Grossly Intact Abdomen: Positive: Soft. Negative: Tender Skin: Negative: Rash Musculoskeletal: Normal Range of Motion Extremities: Present: +1 Edema, Other (pedal pulse intact)
[2019-04-01] MEDS: CARDIZEM PO SCH ×2 (14:15→18:59)
--- NOTE | 2019-04-01 14:33 | Progress Note ---
Assessment and Plan Acute Renal Failure secondary to Prerenal vs ATN from Hypotension, no obstruction: Hyperkalemia, Resolved: Acidosis, Resolved: COPD: -Renal function reviewed. Serum creatinine 4.5 today, yesterday's was 5.5. Has good UOP of 3150 ml. -Renal US showed no hydronephrosis -CXR- showed no acute findings -On D5W in 150 meq of Sodium Bicarbonate@ 75ml/hr -Urine eosinophils negative -UA showed small blood, no significant rbc and urine studies showed no significant proteinuria -Obtain daily weights -Monitor I/O's, tello present -Avoid nephrotoxic agents -No acute indication for HD at this time -Will monitor renal function closely Subjective Date of service: 04/01/19 Interval history: Patient seen lying in bed with Bipap and in mitten restraints. No family at bedside. Objective - Vital Signs Vital signs: Vital Signs - 12hr 04/01/19 04/01/19 04/01/19 03:01 03:48 03:49 Temperature Pulse Rate 110 H 102 H Pulse Rate [ Anterior Bilateral Throughout] Respiratory 16 14 Rate Respiratory Rate [Anterior Bilateral Throughout] Blood Pressure 145/76 O2 Sat by Pulse 94 93 Oximetry 04/01/19 04/01/19 04/01/19 03:56 04:00 05:00 Temperature 97.9 F Pulse Rate 106 H 110 H Pulse Rate [ Anterior Bilateral Throughout] Respiratory 19 20 Rate Respiratory Rate [Anterior Bilateral Throughout] Blood Pressure 132/86 139/86 O2 Sat by Pulse 96 96 Oximetry 04/01/19 04/01/19 04/01/19 06:00 06:17 07:00 Temperature Pulse Rate 107 H 111 H 113 H Pulse Rate [ Anterior Bilateral Throughout] Respiratory 20 20 20 Rate Respiratory Rate [Anterior Bilateral Throughout] Blood Pressure 140/74 139/86 140/89 O2 Sat by Pulse 93 96 92 Oximetry 04/01/19 04/01/19 04/01/19 08:00 08:01 08:05 Temperature Pulse Rate 120 H Pulse Rate [ Anterior Bilateral Throughout] Respiratory 22 28 H Rate Respiratory Rate [Anterior Bilateral Throughout] Blood Pressure 130/79 O2 Sat by Pulse 92 94 96 Oximetry 04/01/19 04/01/19 04/01/19 08:13 08:16 09:00 Temperature Pulse Rate 177 H Pulse Rate [ 139 H Anterior Bilateral Throughout] Respiratory 23 Rate Respiratory 18 Rate [Anterior Bilateral Throughout] Blood Pressure 143/74 O2 Sat by Pulse 96 92 Oximetry 04/01/19 04/01/19 04/01/19 09:32 10:00 11:00 Temperature Pulse Rate 128 H 112 H 155 H Pulse Rate [ Anterior Bilateral Throughout] Respiratory 17 Rate Respiratory Rate [Anterior Bilateral Throughout] Blood Pressure 143/74 136/79 O2 Sat by Pulse 93 Oximetry 04/01/19 04/01/19 04/01/19 11:01 12:00 12:56 Temperature Pulse Rate 174 H 107 H 95 H Pulse Rate [ Anterior Bilateral Throughout] Respiratory 21 18 17 Rate Respiratory Rate [Anterior Bilateral Throughout] Blood Pressure 136/79 141/78 117/61 O2 Sat by Pulse 94 91 94 Oximetry 04/01/19 04/01/19 13:01 13:54 Temperature Pulse Rate 95 H Pulse Rate [ 89 Anterior Bilateral Throughout] Respiratory 17 Rate Respiratory 16 Rate [Anterior Bilateral Throughout] Blood Pressure 117/61 O2 Sat by Pulse 90 Oximetry - General Appearance General appearance: well-developed, obese, fatigue EENT: ATNC Neck: no JVD, supple Respiratory: Present: Decreased Breath Sounds Cardiology: regular, S1S2 Gastrointestinal: normoactive bowel sounds Integumentary: no rash, warm and dry Neurologic: alert and oriented x3 Musculoskeletal: joint swelling - Lab 03/31/19 04:39 03/31/19 04:39 Most recent lab results ABG pH 7.293 pH Units (7.350-7.450) L 03/30/19 20:00 ABG pCO2 43.0 mm Hg 03/30/19 20:00 ABG pO2 85.8 mm Hg (80.0-90.0) 03/30/19 20:00 ABG HCO3 20.3 mmol/L (20.0-26.0) 03/30/19 20:00 ABG O2 Saturation 96.0 % (95.0-99.0) 03/30/19 20:00 Calcium 9.0 mg/dL (8.4-10.2) 03/31/19 04:39 Phosphorus 7.50 mg/dL (2.5-4.5) H 03/30/19 10:12 227.1 mg/dL (0.1-20.0) H 03/30/19 10:00 230.8 mg/dL (0.1-20.0) H 03/30/19 10:00 22 mmol/L 03/30/19 10:00 31 mg/dL (5-11.8) H 03/30/19 10:00 32 mg/dL (5-11.8) H 03/30/19 10:00 Medications & Allergies - Medications Allergies/Adverse Reactions: Allergies No Known Allergies Allergy (Unverified 08/21/14 12:00) Home Medications: Home Medications Medication Instructions Recorded Confirmed Last Taken Type ALBUTEROL Inhaler (OR & NICU) 2 puff IH QID PRN 03/29/19 03/29/19 03/29/19 History [Proair] Apixaban [Eliquis] 5 mg PO BID 03/29/19 03/29/19 03/27/19 History AtorvaSTATin [Lipitor] 40 mg PO DAILY 03/29/19 03/29/19 03/27/19 History FLUoxetine HCL [Prozac] 10 mg PO QDAY 03/29/19 03/29/19 03/27/19 History Glimepiride [Amaryl] 2 mg PO BID 03/29/19 03/29/19 03/27/19 History Lisinopril [Zestril] 5 mg PO QDAY 03/29/19 03/29/19 03/27/19 History Metformin HCl [metFORMIN] 1,000 mg PO BID 03/29/19 03/29/19 03/29/19 History Pantoprazole [Protonix] 40 mg PO QDAY 03/29/19 03/29/19 03/27/19 History Tiotropium [place] [Spiriva 4 gm IH QDAY 03/29/19 03/29/19 Unknown History Respimat] Active Medications: Generic Name Dose Route Start Last Admin Trade Name Freq PRN Reason Stop Dose Admin Acetaminophen 650 mg 03/29/19 22:13 Tylenol PO Q4H PRN Pain MILD(1-3)/Fever >100.5/ARIAS Albuterol 2.5 mg 03/29/19 22:15 Proventil IH Q4HRT PRN Shortness Of Breath Albuterol/Ipratropium 1 ampul 03/31/19 14:00 04/01/19 13:53 Duoneb *Not For Prn Use* IH 1 ampul TIDRT RADHA Administration Amlodipine Besylate 10 mg 03/31/19 10:00 04/01/19 09:32 Norvasc PO 10 mg QDAY RADHA Administration Apixaban 5 mg 03/31/19 02:00 04/01/19 09:32 Eliquis PO 5 mg BID RADHA Administration Protocol Atorvastatin Calcium 40 mg 03/31/19 10:00 04/01/19 09:32 Lipitor PO 40 mg DAILY RADHA Administration Benzonatate 100 mg 03/31/19 14:00 04/01/19 05:43 Tessalon Perles PO 100 mg Q8HR RADHA Administration Dextrose 50 ml 03/30/19 16:21 D50w (25gm) Syringe IV PRN PRN Hypoglycemia Diltiazem HCl 60 mg 04/01/19 13:28 Cardizem PO Q6HR RADHA Diltiazem HCl 15 mg 04/01/19 13:29 Cardizem IV PRN PRN HR >150 lasting >2 minutes Famotidine 10 mg 03/31/19 10:00 04/01/19 09:32 Pepcid PO 10 mg BID RADHA Administration Fluoxetine HCl 10 mg 03/31/19 02:00 04/01/19 09:32 Prozac PO 10 mg QDAY RADHA Administration Guaifenesin 5 ml 03/31/19 13:07 03/31/19 13:24 Guaifenesin Dm Syrup PO 5 ml Q6H PRN Administration Cough Hydralazine HCl 10 mg 03/31/19 01:41 Apresoline IV Q4HR PRN Blood Pressure Hydromorphone HCl 0.25 mg 03/31/19 11:39 Dilaudid IV Q3H PRN Pain , Severe (7-10) Sodium Bicarbonate 150 meq/ 1,150 mls @ 75 mls/hr 03/29/19 16:00 03/31/19 19:14 Dextrose IV 75 mls/hr DIRECT RADHA Administration Levofloxacin/Dextrose 500 mg in 100 mls @ 100 mls/hr 03/31/19 23:00 03/31/19 22:27 Levaquin 500mg/100ml IV 100 mls/hr Q48H RADHA Administration Insulin Glargine 30 units 04/01/19 11:00 04/01/19 12:01 Lantus SUB-Q 30 units BID RADHA Administration Insulin Human Lispro 0 unit 03/31/19 00:00 04/01/19 12:02 Humalog SUB-Q 6 unit Q6HR RADHA Administration Protocol Insulin Human Lispro 10 unit 04/01/19 07:30 04/01/19 12:02 Humalog SUB-Q 10 unit AC RADHA Administration Lorazepam 2 mg 03/31/19 11:35 04/01/19 04:49 Ativan IV 2 mg Q1HR PRN Administration CIWA-Ar 8-15 Lorazepam 4 mg 03/31/19 11:35 03/31/19 16:39 Ativan PO 4 mg Q1HR PRN Administration CIWA-Ar 16-25 Lorazepam 4 mg 03/31/19 11:35 Ativan IV Q15MIN PRN CIWA-Ar >25 Methylprednisolone Sodium Succinate 60 mg 03/30/19 13:00 04/01/19 12:03 Solu-Medrol IV 60 mg Q8H RADHA Administration Metoclopramide HCl 5 mg 03/29/19 22:13 03/30/19 20:54 Reglan IV 5 mg Q6H PRN Administration Nausea And Vomiting Ondansetron HCl 4 mg 03/29/19 22:13 Zofran IV Q8H PRN Nausea And Vomiting Sodium Chloride 10 ml 03/30/19 10:00 04/01/19 09:33 Sodium Chloride Flush Syringe 10 Ml IV 10 ml BID RADHA Administration Sodium Chloride 10 ml 03/29/19 22:13 Sodium Chloride Flush Syringe 10 Ml IV PRN PRN LINE FLUSH
[2019-04-01] MEDS: ATIVAN PO PRN (21:52)
[2019-04-01] MEDS: SODIUM BICARBONATE 150 MEQ in D5W 1,000 ML IV SCH (22:06)
[2019-04-02] MEDS: ATIVAN IV PRN ×5 (00:24→21:29)
[2019-04-02] MEDS: HumaLOG SUB-Q SCH ×7 (00:27→17:09)
[2019-04-02] MEDS: CARDIZEM PO SCH ×4 (00:29→17:14)
[2019-04-02] MEDS: LANTUS SUB-Q SCH ×3 (00:33→21:48)
[2019-04-02] MEDS: LOPRESSOR IV SCH ×4 (01:34→20:48)
--- NOTE | 2019-04-02 03:08 | Event Note ---
Code MET patient became confused after given a total of 4mg po ativan and 2 mg IV for agitation Vitals are stable, no respiratory distress ABG reviewed move closer to nursing station and observe
[2019-04-02] MEDS: TESSALON PERLES PO SCH ×3 (05:44→21:29)
[2019-04-02] MEDS: SOLU-Medrol IV SCH ×3 (05:58→20:49)
[2019-04-02 06:03] LABS: Calcium 9.5 mg/dL (8.4-10.2)
[2019-04-02] MEDS: DUONEB *Not for PRN Use IH SCH ×3 (08:56→21:03)
--- NOTE | 2019-04-02 10:18 | Progress Note ---
Assessment and Plan Acute Renal Failure secondary to Prerenal vs ATN from Hypotension, no obstruction: Hypernatremia Hyperkalemia, Resolved: Acidosis, Resolved: COPD: -Cr cont to improve, good UOP - will switch IVF to 1/2 NS 100 cc/h -Renal US showed no hydronephrosis -CXR- showed no acute findings -Urine eosinophils negative -UA showed small blood, no significant rbc and urine studies showed no significant proteinuria -Obtain daily weights -Monitor I/O's, tello present -Avoid nephrotoxic agents -No acute indication for HD at this time -Will monitor renal function closely Odin Erazo MD [phone] Subjective Date of service: 04/02/19 Principal diagnosis: TEGAN Interval history: answers simple questions, follows commands Objective - Vital Signs Vital signs: Vital Signs - 12hr 04/01/19 04/01/19 04/01/19 22:25 23:07 23:25 Temperature Pulse Rate 83 128 H 92 H Pulse Rate [ Anterior Bilateral Throughout] Respiratory 22 23 Rate Respiratory Rate [Anterior Bilateral Throughout] Blood Pressure 118/74 O2 Sat by Pulse 92 92 Oximetry 04/01/19 04/02/19 04/02/19 23:53 00:29 01:34 Temperature 98.4 F Pulse Rate 92 H 155 H Pulse Rate [ Anterior Bilateral Throughout] Respiratory Rate Respiratory Rate [Anterior Bilateral Throughout] Blood Pressure 118/74 115/68 O2 Sat by Pulse Oximetry 04/02/19 04/02/19 04/02/19 02:00 02:05 02:10 Temperature Pulse Rate 83 78 Pulse Rate [ 78 Anterior Bilateral Throughout] Respiratory 18 Rate Respiratory 18 Rate [Anterior Bilateral Throughout] Blood Pressure O2 Sat by Pulse 94 Oximetry 04/02/19 04/02/19 04/02/19 02:27 03:09 03:21 Temperature 98.6 F 98.5 F Pulse Rate 73 73 87 Pulse Rate [ Anterior Bilateral Throughout] Respiratory 24 24 24 Rate Respiratory Rate [Anterior Bilateral Throughout] Blood Pressure 122/67 111/81 O2 Sat by Pulse 94 92 92 Oximetry 04/02/19 04/02/19 04/02/19 04:13 05:44 08:14 Temperature 98.6 F Pulse Rate 83 84 Pulse Rate [ Anterior Bilateral Throughout] Respiratory 20 Rate Respiratory Rate [Anterior Bilateral Throughout] Blood Pressure 115/81 138/82 O2 Sat by Pulse 98 89 Oximetry 04/02/19 04/02/19 08:59 09:27 Temperature Pulse Rate Pulse Rate [ 96 H Anterior Bilateral Throughout] Respiratory Rate Respiratory 20 Rate [Anterior Bilateral Throughout] Blood Pressure O2 Sat by Pulse 92 Oximetry - General Appearance General appearance: well-developed, well-nourished, obese EENT: ATNC, PERRL, mucous membranes dry Neck: no JVD, no carotid bruit Respiratory: Present: Clear to Ascultation. Absent: Rales, Ronchi Cardiology: regular, S1S2 Gastrointestinal: normoactive bowel sounds, no tenderness, no distended Integumentary: no rash, warm and dry Neurologic: no focal deficit, no asterixis Musculoskeletal: other (no edema in BLE) Psychiatric: cooperative - Lab 03/31/19 04:39 04/02/19 05:11 Most recent lab results ABG pH 7.293 pH Units (7.350-7.450) L 03/30/19 20:00 ABG pCO2 43.0 mm Hg 03/30/19 20:00 ABG pO2 85.8 mm Hg (80.0-90.0) 03/30/19 20:00 ABG HCO3 20.3 mmol/L (20.0-26.0) 03/30/19 20:00 ABG O2 Saturation 96.0 % (95.0-99.0) 03/30/19 20:00 Calcium 9.5 mg/dL (8.4-10.2) 04/02/19 05:11 Phosphorus 7.50 mg/dL (2.5-4.5) H 03/30/19 10:12 227.1 mg/dL (0.1-20.0) H 03/30/19 10:00 230.8 mg/dL (0.1-20.0) H 03/30/19 10:00 22 mmol/L 03/30/19 10:00 31 mg/dL (5-11.8) H 03/30/19 10:00 32 mg/dL (5-11.8) H 03/30/19 10:00 Medications & Allergies - Medications Allergies/Adverse Reactions: Allergies No Known Allergies Allergy (Unverified 08/21/14 12:00) Home Medications: Home Medications Medication Instructions Recorded Confirmed Last Taken Type ALBUTEROL Inhaler (OR & NICU) 2 puff IH QID PRN 03/29/19 03/29/19 03/29/19 History [Proair] Apixaban [Eliquis] 5 mg PO BID 03/29/19 03/29/19 03/27/19 History AtorvaSTATin [Lipitor] 40 mg PO DAILY 03/29/19 03/29/19 03/27/19 History FLUoxetine HCL [Prozac] 10 mg PO QDAY 03/29/19 03/29/19 03/27/19 History Glimepiride [Amaryl] 2 mg PO BID 03/29/19 03/29/19 03/27/19 History Lisinopril [Zestril] 5 mg PO QDAY 03/29/19 03/29/19 03/27/19 History Metformin HCl [metFORMIN] 1,000 mg PO BID 03/29/19 03/29/19 03/29/19 History Pantoprazole [Protonix] 40 mg PO QDAY 03/29/19 03/29/19 03/27/19 History Tiotropium [place] [Spiriva 4 gm IH QDAY 03/29/19 03/29/19 Unknown History Respimat] Active Medications: Generic Name Dose Route Start Last Admin Trade Name Freq PRN Reason Stop Dose Admin Acetaminophen 650 mg 03/29/19 22:13 Tylenol PO Q4H PRN Pain MILD(1-3)/Fever >100.5/ARIAS Albuterol 2.5 mg 03/29/19 22:15 04/02/19 02:10 Proventil IH 2.5 mg Q4HRT PRN Administration Shortness Of Breath Albuterol/Ipratropium 1 ampul 03/31/19 14:00 04/02/19 08:56 Duoneb *Not For Prn Use* IH 1 ampul TIDRT RADHA Administration Amlodipine Besylate 10 mg 03/31/19 10:00 04/01/19 09:32 Norvasc PO 10 mg QDAY RADHA Administration Apixaban 5 mg 03/31/19 02:00 04/01/19 21:52 Eliquis PO 5 mg BID RADHA Administration Protocol Atorvastatin Calcium 40 mg 03/31/19 10:00 04/01/19 09:32 Lipitor PO 40 mg DAILY RADHA Administration Benzonatate 100 mg 03/31/19 14:00 04/02/19 05:44 Tessalon Perles PO 100 mg Q8HR RADHA Administration Dextrose 50 ml 03/30/19 16:21 D50w (25gm) Syringe IV PRN PRN Hypoglycemia Diltiazem HCl 60 mg 04/01/19 13:28 04/02/19 05:44 Cardizem PO 60 mg Q6HR RADHA Administration Diltiazem HCl 15 mg 04/01/19 13:29 Cardizem IV PRN PRN HR >150 lasting >2 minutes Famotidine 10 mg 03/31/19 10:00 04/01/19 21:53 Pepcid PO 10 mg BID RADHA Administration Fluoxetine HCl 10 mg 03/31/19 02:00 04/01/19 09:32 Prozac PO 10 mg QDAY ARDHA Administration Guaifenesin 5 ml 03/31/19 13:07 04/01/19 21:53 Guaifenesin Dm Syrup PO 5 ml Q6H PRN Administration Cough Hydralazine HCl 10 mg 03/31/19 01:41 Apresoline IV Q4HR PRN Blood Pressure Hydromorphone HCl 0.25 mg 03/31/19 11:39 Dilaudid IV Q3H PRN Pain , Severe (7-10) Levofloxacin/Dextrose 500 mg in 100 mls @ 100 mls/hr 03/31/19 23:00 03/31/19 22:27 Levaquin 500mg/100ml IV 100 mls/hr Q48H RADHA Administration Insulin Glargine 30 units 04/01/19 11:00 04/02/19 00:33 Lantus SUB-Q 30 units BID RADHA Administration Insulin Human Lispro 0 unit 03/31/19 00:00 04/02/19 05:58 Humalog SUB-Q 3 unit Q6HR RADHA Administration Protocol Insulin Human Lispro 10 unit 04/01/19 07:30 04/01/19 16:45 Humalog SUB-Q Not Given [facility] Lorazepam 2 mg 03/31/19 11:35 04/02/19 00:24 Ativan IV 2 mg Q1HR PRN Administration CIWA-Ar 8-15 Lorazepam 4 mg 03/31/19 11:35 04/01/19 21:52 Ativan PO 4 mg Q1HR PRN Administration CIWA-Ar 16-25 Lorazepam 4 mg 03/31/19 11:35 Ativan IV Q15MIN PRN CIWA-Ar >25 Methylprednisolone Sodium Succinate 60 mg 03/30/19 13:00 04/02/19 05:58 Solu-Medrol IV 60 mg Q8H RADHA Administration Metoclopramide HCl 5 mg 03/29/19 22:13 03/30/19 20:54 Reglan IV 5 mg Q6H PRN Administration Nausea And Vomiting Metoprolol Tartrate 5 mg 04/02/19 02:00 04/02/19 01:34 Lopressor IV 5 mg Q6H RADHA Administration Ondansetron HCl 4 mg 03/29/19 22:13 Zofran IV Q8H PRN Nausea And Vomiting Sodium Chloride 10 ml 03/30/19 10:00 04/01/19 21:56 Sodium Chloride Flush Syringe 10 Ml IV 10 ml BID RADHA Administration Sodium Chloride 10 ml 03/29/19 22:13 Sodium Chloride Flush Syringe 10 Ml IV PRN PRN LINE FLUSH Sodium Chloride 100 ml 04/02/19 11:00 Nacl 0.45% 1000 Ml IV DIRECT RADHA
[2019-04-02] MEDS: NACL 0.45% 1000 ML 1,000 ML IV SCH (10:47)
[2019-04-02] MEDS: PROzac PO SCH (10:49)
[2019-04-02] MEDS: ELIQUIS PO SCH ×2 (10:49→21:29)
[2019-04-02] MEDS: NORVASC PO SCH (10:49)
[2019-04-02] MEDS: PEPCID PO SCH ×2 (10:50→21:29)
[2019-04-02] MEDS: SODIUM CHLORIDE FLUSH SYRINGE 10 ML IV SCH ×2 (10:50→21:29)
[2019-04-02] MEDS ORDERED: NACL 0.45% 1000 ML IV SCH (11:00)
--- NOTE | 2019-04-02 11:47 | Progress Note ---
Assessment and Plan Assessment and plan: Patient is a 58-year-old male that presents emergency room with complaints of shortness of breath. afib with rvr and hypercoaguable state mgt per cardiology, rate control improved Acute renal failure due to ATN nephrology following, improving Hyperkalemia - was medically rx and improved Metabolic acidosis - sp bicarbonate drip, resolved Acute and chronic respiratory failure secondary to COPD exacerbation - cont steroids, nebs, and oxygen, cont bipap prn Polysubstance abuse/etoh withdrawal -uds pos for amphetamines, per [place], no documented hx of amphetamine abuse -[facility] protocol for etoh abuse Acute metabolic encephalopathy confused, restraints placed obtain CTH, neurology consult likely due to etoh withdwaral Type 2 diabetes mellitus with persistent hyperglycemia - Continue insulin coverage DVT prophylaxis - On heparin Disposition; I discussed with [place] physician and said continue management here. Hospitalist Physical - Constitutional Vitals: Temp Pulse Resp BP Pulse Ox 98.6 F 136 H 18 138/82 95 04/02/19 08:14 04/02/19 10:00 04/02/19 10:00 04/02/19 08:14 04/02/19 10:00 General appearance: Present: mild distress (sob) Results - Labs CBC & Chem 7: 04/03/19 05:48 04/03/19 05:48 Labs: Laboratory Last Values WBC 4.7 K/mm3 (4.5-11.0) 03/31/19 04:39 RBC 3.08 M/mm3 (3.65-5.03) L 03/31/19 04:39 Hgb 10.3 gm/dl (11.8-15.2) L 03/31/19 04:39 Hct 30.6 % (35.5-45.6) L 03/31/19 04:39 MCV 99 fl (84-94) H 03/31/19 04:39 MCH 33 pg (28-32) H 03/31/19 04:39 MCHC 34 % (32-34) 03/31/19 04:39 RDW 15.1 % (13.2-15.2) 03/31/19 04:39 Plt Count 266 K/mm3 (140-440) 03/31/19 04:39 Lymph % (Auto) 6.5 % (13.4-35.0) L 03/31/19 04:39 [place] % (Auto) 6.8 % (0.0-7.3) 03/31/19 04:39 Eos % (Auto) 0.0 % (0.0-4.3) 03/31/19 04:39 Baso % (Auto) 0.1 % (0.0-1.8) 03/31/19 04:39 Lymph # 0.3 K/mm3 (1.2-5.4) L 03/31/19 04:39 [place] # 0.3 K/mm3 (0.0-0.8) 03/31/19 04:39 Eos # 0.0 K/mm3 (0.0-0.4) 03/31/19 04:39 Baso # 0.0 K/mm3 (0.0-0.1) 03/31/19 04:39 Seg Neutrophils % 86.6 % (40.0-70.0) H 03/31/19 04:39 Seg Neutrophils # 4.1 K/mm3 (1.8-7.7) 03/31/19 04:39 POC ABG pH 7.827 (7.35-7.45) H 04/02/19 03:09 ABG pH 7.293 pH Units (7.350-7.450) L 03/30/19 20:00 POC ABG pCO2 50.5 (35-45) H 03/30/19 05:58 ABG pCO2 43.0 mm Hg 03/30/19 20:00 POC ABG pO2 157 (80-105) H 04/02/19 03:09 ABG pO2 85.8 mm Hg (80.0-90.0) 03/30/19 20:00 POC ABG HCO3 30.3 (22-26 mml/L) 04/02/19 03:09 ABG HCO3 20.3 mmol/L (20.0-26.0) 03/30/19 20:00 POC ABG Total CO2 31 (23-27mmol/L) 04/02/19 03:09 POC ABG O2 Sat 100 04/02/19 03:09 ABG O2 Saturation 96.0 % (95.0-99.0) 03/30/19 20:00 ABG O2 Content 14.6 (0.0-44) 03/30/19 20:00 POC ABG Base Excess 12 ((-2) - (+3)mmol/L) 04/02/19 03:09 ABG Base Excess -5.9 mmol/L (-2.0-3.0) L 03/30/19 20:00 ABG Hemoglobin 11.0 gm/dl (14.0-18.0) L 03/30/19 20:00 ABG Carboxyhemoglobin 1.4 % (0.0-5.0) 03/30/19 20:00 ABG Methemoglobin 0.7 % (0.0-1.5) 03/30/19 20:00 94.1 % (95.0-99.0) L 03/30/19 20:00 32 % 04/02/19 03:09 Sodium 149 mmol/L (137-145) H D 04/02/19 05:11 Potassium 3.3 mmol/L (3.6-5.0) L 04/02/19 05:11 Chloride 101.6 mmol/L (98-107) 04/02/19 05:11 Carbon Dioxide 35 mmol/L (22-30) H D 04/02/19 05:11 16 mmol/L 04/02/19 05:11 BUN 78 mg/dL (9-20) H 04/02/19 05:11 2.2 mg/dL (0.8-1.5) H D 04/02/19 05:11 Estimated GFR 31 ml/min 04/02/19 05:11 35 % 04/02/19 05:11 Glucose 185 mg/dL (75-100) H 04/02/19 05:11 POC Glucose 140 (70-105) H 04/02/19 08:28 6.4 % (4-6) H 03/29/19 23:37 Lactic Acid 1.00 mmol/L (0.7-2.0) 03/29/19 13:18 Calcium 9.5 mg/dL (8.4-10.2) 04/02/19 05:11 Phosphorus 7.50 mg/dL (2.5-4.5) H 03/30/19 10:12 0.60 mg/dL (0.1-1.2) 03/29/19 13:18 AST 48 units/L (5-40) H 03/29/19 13:18 ALT 23 units/L (7-56) 03/29/19 13:18 136 units/L (35-129) H 03/29/19 13:18 2408 units/L (55-170) H 03/29/19 13:18 CK-MB (CK-2) 17.6 ng/mL (0.0-4.0) H 03/29/19 13:18 CK-MB (CK-2) Rel Index 0.7 (0-4) 03/29/19 13:18 < 0.010 ng/mL (0.00-0.029) 03/31/19 08:43 8.0 g/dL (6.3-8.2) 03/29/19 13:18 3.9 g/dL (3.9-5) 03/29/19 13:18 1.0 % 03/29/19 13:18 Yellow (Yellow) 03/29/19 12:29 Slightly-cloudy (Clear) 03/29/19 12:29 5.0 (5.0-7.0) 03/29/19 12:29 Ur Specific [place] 1.017 (1.003-1.030) 03/29/19 12:29 <15 mg/dl mg/dL (Negative) 03/29/19 12:29 50 mg/dL (Negative) 03/29/19 12:29 Tr mg/dL (Negative) 03/29/19 12:29 Sm (Negative) 03/29/19 12:29 Neg (Negative) 03/29/19 12:29 Neg (Negative) 03/29/19 12:29 < 2.0 mg/dL (<2.0) 03/29/19 12:29 Ur Leukocyte Esterase Neg (Negative) 03/29/19 12:29 3.0 /HPF (0.0-6.0) 03/29/19 12:29 1.0 /HPF (0.0-6.0) 03/29/19 12:29 Few /HPF 03/29/19 12:29 None seen (None Seen) 03/30/19 10:00 227.1 mg/dL (0.1-20.0) H 03/30/19 10:00 230.8 mg/dL (0.1-20.0) H 03/30/19 10:00 Protein/Creatinin Ratio 0.14 03/30/19 10:00 22 mmol/L 03/30/19 10:00 31 mg/dL (5-11.8) H 03/30/19 10:00 32 mg/dL (5-11.8) H 03/30/19 10:00 Presumptive negative 03/30/19 10:00 Presumptive negative 03/30/19 10:00 Ur Barbiturates Screen Presumptive negative 03/30/19 10:00 Ur Phencyclidine Scrn Presumptive negative 03/30/19 10:00 Ur Amphetamines Screen Presumptive positive 03/30/19 10:00 U Benzodiazepines Scrn Presumptive negative 03/30/19 10:00 Presumptive negative 03/30/19 10:00 U Marijuana (THC) Screen Presumptive negative 03/30/19 10:00 Disclamer 03/30/19 10:00 Hepatitis A IgM Ab Non-reactive (NonReactive) 03/29/19 19:41 Hep Bs Antigen Non-reactive (Negative) 03/29/19 19:41 Hep B Core IgM Ab Non-reactive (NonReactive) 03/29/19 19:41 Non-reactive (NonReactive) 03/29/19 19:41 Active Medications - Current Medications Current Medications: Generic Name Dose Route Start Last Admin Trade Name Freq PRN Reason Stop Dose Admin Acetaminophen 650 mg 03/29/19 22:13 Tylenol PO Q4H PRN Pain MILD(1-3)/Fever >100.5/ARIAS Albuterol 2.5 mg 03/29/19 22:15 04/02/19 02:10 Proventil IH 2.5 mg Q4HRT PRN Administration Shortness Of Breath Albuterol/Ipratropium 1 ampul 03/31/19 14:00 04/02/19 08:56 Duoneb *Not For Prn Use* IH 1 ampul TIDRT RADHA Administration Amlodipine Besylate 10 mg 03/31/19 10:00 04/02/19 10:49 Norvasc PO 10 mg QDAY RADHA Administration Apixaban 5 mg 03/31/19 02:00 04/02/19 10:49 Eliquis PO 5 mg BID RADHA Administration Protocol Atorvastatin Calcium 40 mg 03/31/19 10:00 04/02/19 10:49 Lipitor PO 40 mg DAILY RADHA Administration Benzonatate 100 mg 03/31/19 14:00 04/02/19 05:44 Tessalon Perles PO 100 mg Q8HR RADHA Administration Dextrose 50 ml 03/30/19 16:21 D50w (25gm) Syringe IV PRN PRN Hypoglycemia Diltiazem HCl 60 mg 04/01/19 13:28 04/02/19 05:44 Cardizem PO 60 mg Q6HR RADHA Administration Diltiazem HCl 15 mg 04/01/19 13:29 Cardizem IV PRN PRN HR >150 lasting >2 minutes Famotidine 10 mg 03/31/19 10:00 04/02/19 10:50 Pepcid PO 10 mg BID RADHA Administration Fluoxetine HCl 10 mg 03/31/19 02:00 04/02/19 10:49 Prozac PO 10 mg QDAY RADHA Administration Guaifenesin 5 ml 03/31/19 13:07 04/01/19 21:53 Guaifenesin Dm Syrup PO 5 ml Q6H PRN Administration Cough Hydralazine HCl 10 mg 03/31/19 01:41 Apresoline IV Q4HR PRN Blood Pressure Hydromorphone HCl 0.25 mg 03/31/19 11:39 Dilaudid IV Q3H PRN Pain , Severe (7-10) Levofloxacin/Dextrose 500 mg in 100 mls @ 100 mls/hr 03/31/19 23:00 03/31/19 22:27 Levaquin 500mg/100ml IV 04/04/19 22:59 100 mls/hr Q48H RADHA Administration Sodium Chloride 1,000 mls @ 100 mls/hr 04/02/19 11:00 04/02/19 10:47 Nacl 0.45% 1000 Ml IV 100 mls/hr DIRECT RADHA Administration Insulin Glargine 30 units 04/01/19 11:00 04/02/19 10:52 Lantus SUB-Q 30 units BID RADHA Administration Insulin Human Lispro 0 unit 03/31/19 00:00 04/02/19 05:58 Humalog SUB-Q 3 unit Q6HR RADHA Administration Protocol Insulin Human Lispro 10 unit 04/01/19 07:30 04/02/19 10:47 Humalog SUB-Q Not Given [facility] Lorazepam 2 mg 03/31/19 11:35 04/02/19 00:24 Ativan IV 2 mg Q1HR PRN Administration CIWA-Ar 8-15 Lorazepam 4 mg 03/31/19 11:35 04/01/19 21:52 Ativan PO 4 mg Q1HR PRN Administration CIWA-Ar 16-25 Lorazepam 4 mg 03/31/19 11:35 Ativan IV Q15MIN PRN CIWA-Ar >25 Methylprednisolone Sodium Succinate 60 mg 03/30/19 13:00 04/02/19 05:58 Solu-Medrol IV 60 mg Q8H RADHA Administration Metoclopramide HCl 5 mg 03/29/19 22:13 03/30/19 20:54 Reglan IV 5 mg Q6H PRN Administration Nausea And Vomiting Metoprolol Tartrate 5 mg 04/02/19 02:00 04/02/19 10:52 Lopressor IV 5 mg Q6H RADHA Administration Ondansetron HCl 4 mg 03/29/19 22:13 Zofran IV Q8H PRN Nausea And Vomiting Sodium Chloride 10 ml 03/30/19 10:00 04/02/19 10:50 Sodium Chloride Flush Syringe 10 Ml IV 10 ml BID RADHA Administration Sodium Chloride 10 ml 03/29/19 22:13 Sodium Chloride Flush Syringe 10 Ml IV PRN PRN LINE FLUSH Nutrition/Malnutrition Assess - Dietary Evaluation Nutrition/Malnutrition Findings: Nutrition Notes Start: 03/30/19 09:51 Freq: Status: Active Protocol: Document 03/30/19 09:52 CHELA (Rec: 03/30/19 09:56 [facility]- [id number]) Nutrition Notes Need for Assessment generated from: wheel cleaner Initial or Follow up Brief Note Current Diagnosis Acute Kidney Injury,COPD, Diabetes,Hypertension, Respiratory Failure Other Pertinent Diagnosis COPD exacerbation Current Diet Renal Labs/Tests Labs from 03/29/19: K 6.6 BUN 73 Cr 8.6 A1C 6.4 Pertinent Medications Solumedrol Height 5 ft 6 in Weight 129.27 kg [place] Body Weight (kg) 64.54 BMI 46.0 Weight Status Morbidly Obese Subjective/Other Information Pt screened for skin risk ( Raji score unavailable) and new onset of DM. Per nephrology, no need for HD at this time. Burn Absent Trauma Absent Is patient on ventilator? No Is Patient Ambulatory and/or Out of Bed No REE-(Parmele-St. Jeor-confined to bed) 2464.656 Kcal/Kg value to use for calculation 14 Approximate Energy Requirements Using 1810 kcal/Kg Calculation Used for Recommendations Kcal/kg Additional Notes Pro needs 2.5g/kg IBW: 161g/ day Fluid needs per MD Nutrition Intervention Follow-Up By: 04/02/19 Additional Comments F/U: intakes, renal function
--- NOTE | 2019-04-02 12:00 | Progress Note ---
Assessment and Plan Alcohol and substance abuse withdrawal Also positive drug screen Continue [facility] protocol renal fn improving Patient appears to be volume depleted with contraction alkalosis. Consider IV fluids or increase oral fluid intake. Repeat arterial blood gases. continue to monitor closely continue on meds steroids taper continue BiPAP at night and prn Will need to rept sleep study compliance w meds weight loss needed Subjective Date of service: 04/02/19 Principal diagnosis: TEGAN Interval history: Remain somewhat confused and disoriented. Currently on [facility] protocol. Objective Vital Signs - 12hr 04/02/19 04/02/19 04/02/19 00:29 01:34 02:00 Temperature Pulse Rate 92 H 155 H 83 Pulse Rate [ Anterior Bilateral Throughout] Pulse Rate [ Apical] Respiratory Rate Respiratory Rate [Anterior Bilateral Throughout] Blood Pressure 118/74 115/68 O2 Sat by Pulse Oximetry 04/02/19 04/02/19 04/02/19 02:05 02:10 02:27 Temperature 98.6 F Pulse Rate 78 73 Pulse Rate [ 78 Anterior Bilateral Throughout] Pulse Rate [ Apical] Respiratory 18 24 Rate Respiratory 18 Rate [Anterior Bilateral Throughout] Blood Pressure 122/67 O2 Sat by Pulse 94 94 Oximetry 04/02/19 04/02/19 04/02/19 03:09 03:21 04:13 Temperature 98.5 F Pulse Rate 73 87 Pulse Rate [ Anterior Bilateral Throughout] Pulse Rate [ Apical] Respiratory 24 24 Rate Respiratory Rate [Anterior Bilateral Throughout] Blood Pressure 111/81 O2 Sat by Pulse 92 92 98 Oximetry 04/02/19 04/02/19 04/02/19 05:44 08:14 08:59 Temperature 98.6 F Pulse Rate 83 84 Pulse Rate [ Anterior Bilateral Throughout] Pulse Rate [ Apical] Respiratory 20 Rate Respiratory Rate [Anterior Bilateral Throughout] Blood Pressure 115/81 138/82 O2 Sat by Pulse 89 92 Oximetry 04/02/19 04/02/19 09:27 10:00 Temperature Pulse Rate 136 H Pulse Rate [ 96 H Anterior Bilateral Throughout] Pulse Rate [ 136 H Apical] Respiratory 18 Rate Respiratory 20 Rate [Anterior Bilateral Throughout] Blood Pressure O2 Sat by Pulse 95 Oximetry Constitutional: no acute distress, other (obese) Eyes: non-icteric ENT: oropharynx moist Neck: supple Ascultation: Bilateral: clear, wheezes Percussion: Bilateral: not dull Cardiovascular: regular rate and rhythm Gastrointestinal: normoactive bowel sounds, soft, non-distended, other (obese) Integumentary: normal Extremities: no cyanosis Neurologic: non-focal exam Psychiatric: mood appropriate CBC and BMP: 03/31/19 04:39 04/02/19 05:11 ABG, PT/INR, D-dimer: ABG POC ABG pH 7.827 (7.35-7.45) H 04/02/19 03:09 ABG pH 7.293 pH Units (7.350-7.450) L 03/30/19 20:00 ABG pCO2 43.0 mm Hg 03/30/19 20:00 POC ABG pO2 157 (80-105) H 04/02/19 03:09 ABG pO2 85.8 mm Hg (80.0-90.0) 03/30/19 20:00 POC ABG HCO3 30.3 (22-26 mml/L) 04/02/19 03:09 POC ABG Total CO2 31 (23-27mmol/L) 04/02/19 03:09 POC ABG O2 Sat 100 04/02/19 03:09 ABG O2 Saturation 96.0 % (95.0-99.0) 03/30/19 20:00 Abnormal lab findings: Abnormal Labs 03/29/19 03/29/19 03/29/19 13:18 13:18 18:22 RBC 3.24 L Hgb 10.6 L Hct 33.2 L MCV 103 H MCH 33 H RDW 15.5 H Lymph % (Auto) 9.4 L [place] % (Auto) 7.8 H Lymph # 0.8 L Seg Neutrophils % 81.5 H POC ABG pH 7.122 L ABG pH POC ABG pCO2 45.4 H POC ABG pO2 ABG pO2 ABG HCO3 ABG O2 Saturation ABG Base Excess ABG Hemoglobin Oxyhemoglobin Sodium 132 L Potassium 6.6 H* Chloride 94.9 L Carbon Dioxide 14 L BUN 73 H Creatinine 8.6 H Glucose POC Glucose Hemoglobin A1c Phosphorus AST 48 H Alkaline Phosphatase 136 H Total Creatine Kinase 2408 H CK-MB (CK-2) 17.6 H Urine Creatinine Urine Total Protein 03/29/19 03/30/19 03/30/19 23:37 05:58 10:00 RBC Hgb Hct MCV MCH RDW Lymph % (Auto) [place] % (Auto) Lymph # Seg Neutrophils % POC ABG pH 7.143 L ABG pH POC ABG pCO2 50.5 H POC ABG pO2 159 H ABG pO2 ABG HCO3 ABG O2 Saturation ABG Base Excess ABG Hemoglobin Oxyhemoglobin Sodium Potassium Chloride Carbon Dioxide BUN Creatinine Glucose POC Glucose Hemoglobin A1c 6.4 H Phosphorus AST Alkaline Phosphatase Total Creatine Kinase CK-MB (CK-2) Urine Creatinine 227.1 H Urine Total Protein 31 H 03/30/19 03/30/19 03/30/19 10:00 10:12 10:12 RBC 3.17 L Hgb 10.5 L Hct 31.8 L MCV 100 H MCH 33 H RDW Lymph % (Auto) 8.1 L [place] % (Auto) Lymph # 0.5 L Seg Neutrophils % 88.0 H POC ABG pH ABG pH POC ABG pCO2 POC ABG pO2 ABG pO2 ABG HCO3 ABG O2 Saturation ABG Base Excess ABG Hemoglobin Oxyhemoglobin Sodium 132 L Potassium 6.6 H* Chloride 91.9 L Carbon Dioxide 19 L BUN 89 H Creatinine 7.2 H Glucose 302 H POC Glucose Hemoglobin A1c Phosphorus 7.50 H AST Alkaline Phosphatase Total Creatine Kinase CK-MB (CK-2) Urine Creatinine 230.8 H Urine Total Protein 32 H 03/30/19 03/30/19 03/30/19 11:42 16:54 17:45 RBC Hgb Hct MCV MCH RDW Lymph % (Auto) [place] % (Auto) Lymph # Seg Neutrophils % POC ABG pH ABG pH 7.294 L POC ABG pCO2 POC ABG pO2 ABG pO2 67.1 L ABG HCO3 19.4 L ABG O2 Saturation 91.4 L ABG Base Excess -6.7 L ABG Hemoglobin 9.9 L Oxyhemoglobin 89.4 L Sodium Potassium Chloride Carbon Dioxide BUN Creatinine Glucose POC Glucose 275 H 361 H Hemoglobin A1c Phosphorus AST Alkaline Phosphatase Total Creatine Kinase CK-MB (CK-2) Urine Creatinine Urine Total Protein 03/30/19 03/30/19 03/30/19 20:00 20:28 23:27 RBC Hgb Hct MCV MCH RDW Lymph % (Auto) [place] % (Auto) Lymph # Seg Neutrophils % POC ABG pH ABG pH 7.293 L POC ABG pCO2 POC ABG pO2 ABG pO2 ABG HCO3 ABG O2 Saturation ABG Base Excess -5.9 L ABG Hemoglobin 11.0 L Oxyhemoglobin 94.1 L Sodium 134 L Potassium Chloride 92.9 L Carbon Dioxide 19 L BUN 93 H Creatinine 5.5 H Glucose 374 H POC Glucose 372 H Hemoglobin A1c Phosphorus AST Alkaline Phosphatase Total Creatine Kinase CK-MB (CK-2) Urine Creatinine Urine Total Protein 03/31/19 03/31/19 03/31/19 04:39 04:39 05:27 RBC 3.08 L Hgb 10.3 L Hct 30.6 L MCV 99 H MCH 33 H RDW Lymph % (Auto) 6.5 L [place] % (Auto) Lymph # 0.3 L Seg Neutrophils % 86.6 H POC ABG pH ABG pH POC ABG pCO2 POC ABG pO2 ABG pO2 ABG HCO3 ABG O2 Saturation ABG Base Excess ABG Hemoglobin Oxyhemoglobin Sodium 135 L Potassium Chloride 92.7 L Carbon Dioxide BUN 92 H Creatinine 4.5 H Glucose 344 H POC Glucose 354 H Hemoglobin A1c Phosphorus AST Alkaline Phosphatase Total Creatine Kinase CK-MB (CK-2) Urine Creatinine Urine Total Protein 03/31/19 03/31/19 03/31/19 08:03 12:08 17:08 RBC Hgb Hct MCV MCH RDW Lymph % (Auto) [place] % (Auto) Lymph # Seg Neutrophils % POC ABG pH ABG pH POC ABG pCO2 POC ABG pO2 ABG pO2 ABG HCO3 ABG O2 Saturation ABG Base Excess ABG Hemoglobin Oxyhemoglobin Sodium Potassium Chloride Carbon Dioxide BUN Creatinine Glucose POC Glucose 375 H 410 H 361 H Hemoglobin A1c Phosphorus AST Alkaline Phosphatase Total Creatine Kinase CK-MB (CK-2) Urine Creatinine Urine Total Protein 03/31/19 04/01/19 04/01/19 23:12 05:22 08:28 RBC Hgb Hct MCV MCH RDW Lymph % (Auto) [place] % (Auto) Lymph # Seg Neutrophils % POC ABG pH ABG pH POC ABG pCO2 POC ABG pO2 ABG pO2 ABG HCO3 ABG O2 Saturation ABG Base Excess ABG Hemoglobin Oxyhemoglobin Sodium Potassium Chloride Carbon Dioxide BUN Creatinine Glucose POC Glucose 355 H 300 H 259 H Hemoglobin A1c Phosphorus AST Alkaline Phosphatase Total Creatine Kinase CK-MB (CK-2) Urine Creatinine Urine Total Protein 04/01/19 04/01/19 04/01/19 11:35 16:18 23:27 RBC Hgb Hct MCV MCH RDW Lymph % (Auto) [place] % (Auto) Lymph # Seg Neutrophils % POC ABG pH ABG pH POC ABG pCO2 POC ABG pO2 ABG pO2 ABG HCO3 ABG O2 Saturation ABG Base Excess ABG Hemoglobin Oxyhemoglobin Sodium Potassium Chloride Carbon Dioxide BUN Creatinine Glucose POC Glucose 283 H 169 H 344 H Hemoglobin A1c Phosphorus AST Alkaline Phosphatase Total Creatine Kinase CK-MB (CK-2) Urine Creatinine Urine Total Protein 04/02/19 04/02/19 04/02/19 02:39 03:09 05:11 RBC Hgb Hct MCV MCH RDW Lymph % (Auto) [place] % (Auto) Lymph # Seg Neutrophils % POC ABG pH 7.827 H ABG pH POC ABG pCO2 POC ABG pO2 157 H ABG pO2 ABG HCO3 ABG O2 Saturation ABG Base Excess ABG Hemoglobin Oxyhemoglobin Sodium 149 H D Potassium 3.3 L Chloride Carbon Dioxide 35 H D BUN 78 H Creatinine 2.2 H D Glucose 185 H POC Glucose 252 H Hemoglobin A1c Phosphorus AST Alkaline Phosphatase Total Creatine Kinase CK-MB (CK-2) Urine Creatinine Urine Total Protein 04/02/19 04/02/19 05:31 08:28 RBC Hgb Hct MCV MCH RDW Lymph % (Auto) [place] % (Auto) Lymph # Seg Neutrophils % POC ABG pH ABG pH POC ABG pCO2 POC ABG pO2 ABG pO2 ABG HCO3 ABG O2 Saturation ABG Base Excess ABG Hemoglobin Oxyhemoglobin Sodium Potassium Chloride Carbon Dioxide BUN Creatinine Glucose POC Glucose 160 H 140 H Hemoglobin A1c Phosphorus AST Alkaline Phosphatase Total Creatine Kinase CK-MB (CK-2) Urine Creatinine Urine Total Protein
[2019-04-02] MEDS ORDERED: NACL 0.9% 1000 ML 1,000 ML IV SCH (13:00)
--- NOTE | 2019-04-02 13:01 | Progress Note ---
Assessment and Plan Optimize HR - titrate cardizem as tolerated. Cont Eliquis. Obtain echo and thyroid profile. Monitor electrolytes. The patient has been seen in conjunction with Dr. Young who agrees with the assessment and plan of care. - Patient Problems (1) Atrial fibrillation with RVR Current Visit: Yes Status: Acute Plan to address problem: paroxysmal (2) Acute renal failure Current Visit: Yes Status: Acute (3) Hypernatremia Current Visit: Yes Status: Acute (4) Altered mental status Current Visit: Yes Status: Acute (5) Alcohol withdrawal Current Visit: Yes Status: Suspected (6) COPD (chronic obstructive pulmonary disease) Current Visit: Yes Status: Chronic (7) Sleep apnea Current Visit: Yes Status: Chronic (8) Obesity Current Visit: Yes Status: Chronic (9) HTN (hypertension) Current Visit: Yes Status: Chronic (10) Diabetes Current Visit: Yes Status: Chronic Subjective Date of service: 04/02/19 Principal diagnosis: Afib Interval history: pt resting comfortably in bed, sleepy, confused. tele reviewed - in AFib with HR 90s - 120s. Objective Last Vital Signs Temp 98.6 F 04/02/19 12:02 Pulse 84 04/02/19 12:02 Resp 18 04/02/19 12:02 BP 126/82 04/02/19 12:02 Pulse Ox 93 04/02/19 12:02 - Physical Examination General: Other (sleepy, confused) HEENT: Positive: PERRL, Normocephaly Neck: Positive: neck supple. Negative: JVD/HJR, Bruit Cardiac: Positive: irregularly irregular, S1/S2, Tachycardia Lungs: Positive: Decreased Breath Sounds Neuro: Positive: Other (confused) Abdomen: Positive: Soft. Negative: Tender Skin: Negative: Rash Musculoskeletal: Normal Range of Motion Extremities: Present: +1 Edema, Other (pedal pulse intact) - Labs and Meds Comprehensive Metabolic Panel 04/02/19 Range/Units 05:11 Sodium 149 H D (137-145) mmol/L Potassium 3.3 L (3.6-5.0) mmol/L Chloride 101.6 (98-107) mmol/L Carbon Dioxide 35 H D (22-30) mmol/L BUN 78 H (9-20) mg/dL Creatinine 2.2 H D (0.8-1.5) mg/dL Glucose 185 H (75-100) mg/dL Calcium 9.5 (8.4-10.2) mg/dL
[2019-04-02 14:59] LABS: ABG Base Excess 8.7 mmol/L (-2.0-3.0); ABG HCO3 34.3 mmol/L (20.0-26.0); ABG Methemoglobin 0.5 % (0.0-1.5); ABG Oxygen Saturation 95.3 % (95.0-99.0); ABG PCO2 52.3 mm Hg; ABG PH 7.435 pH Units (7.350-7.450); ABG PO2 73.3 mm Hg (80.0-90.0)
[2019-04-02] MEDS: LEVAQUIN 500MG/100ML 500 MG/100 ML BAG IV SCH (22:42)
[2019-04-03] MEDS: HumaLOG SUB-Q SCH ×8 (00:28→18:31)
[2019-04-03] MEDS: CARDIZEM PO SCH ×4 (00:28→18:39)
[2019-04-03] MEDS: ATIVAN IV PRN ×4 (01:00→20:01)
[2019-04-03] MEDS: LOPRESSOR IV SCH ×2 (02:42→21:12)
[2019-04-03] MEDS: SOLU-Medrol IV SCH ×3 (05:11→20:01)
[2019-04-03] MEDS: TESSALON PERLES PO SCH ×3 (05:39→21:44)
[2019-04-03 06:15] LABS: Basophils % (Auto) 0.2 % (0.0-1.8); Hematocrit 34.8 % (35.5-45.6); Hemoglobin 11.5 gm/dl (11.8-15.2); Lymphocytes # (Auto) 0.8 K/mm3 (1.2-5.4); Lymphocytes % (Auto) 13.2 % (13.4-35.0); Mean Corpuscular HGB Conc 33 % (32-34); Mean Corpuscular Volume 101 fl (84-94); Monocytes # (Auto) 0.5 K/mm3 (0.0-0.8); Monocytes % (Auto) 8.8 % (0.0-7.3); Platelet Count 318 K/mm3 (140-440); Red Blood Count 3.46 M/mm3 (3.65-5.03); Red Cell Distribution Width 15.5 % (13.2-15.2)
[2019-04-03 06:41] LABS: Albumin 3.6 g/dL (3.9-5); Bilirubin,Direct 0.2 mg/dL (0-0.2); Calcium 9.2 mg/dL (8.4-10.2)
[2019-04-03] MEDS: DUONEB *Not for PRN Use IH SCH ×3 (08:21→20:56)
--- NOTE | 2019-04-03 09:53 | Progress Note ---
Assessment and Plan afib with rvr and hypercoaguable state mgt per cardiology, rate control improved Acute renal failure due to ATN nephrology following, improving Hyperkalemia - was medically rx and improved Metabolic acidosis - sp bicarbonate drip, resolved Acute and chronic respiratory failure secondary to COPD exacerbation - cont steroids, nebs, and oxygen, cont bipap prn Polysubstance abuse/etoh withdrawal -uds pos for amphetamines, per [place], no documented hx of amphetamine abuse -[facility] protocol for etoh abuse Acute metabolic encephalopathy confused, restraints placed obtain CTH, neurology consult likely due to etoh withdwaral Type 2 diabetes mellitus with persistent hyperglycemia - Continue insulin coverage DVT prophylaxis - On heparin Subjective Date of service: 04/03/19 Principal diagnosis: Afib Interval history: Patient is a 58-year-old male that presents emergency room with complaints of shortness of breath. Objective - Constitutional Vitals: Vital Signs - 12hr 04/02/19 04/02/19 04/02/19 22:35 23:01 23:28 Temperature 98.0 F Pulse Rate 66 88 Pulse Rate [ Anterior Bilateral Throughout] Pulse Rate [ 102 H Apical] Respiratory 22 20 18 Rate Respiratory Rate [Anterior Bilateral Throughout] Blood Pressure 118/69 112/66 Blood Pressure [Left] O2 Sat by Pulse 91 95 90 Oximetry 04/03/19 04/03/19 04/03/19 00:28 02:42 03:38 Temperature Pulse Rate 88 88 88 Pulse Rate [ Anterior Bilateral Throughout] Pulse Rate [ Apical] Respiratory 18 Rate Respiratory Rate [Anterior Bilateral Throughout] Blood Pressure 112/66 112/66 112/66 Blood Pressure [Left] O2 Sat by Pulse 96 Oximetry 04/03/19 04/03/19 04/03/19 04:50 05:38 07:49 Temperature 98 F 97.7 F Pulse Rate 68 68 69 Pulse Rate [ Anterior Bilateral Throughout] Pulse Rate [ Apical] Respiratory 18 20 Rate Respiratory Rate [Anterior Bilateral Throughout] Blood Pressure 121/68 138/80 Blood Pressure 121/68 [Left] O2 Sat by Pulse 91 91 Oximetry 04/03/19 04/03/19 08:21 08:40 Temperature Pulse Rate Pulse Rate [ 93 H Anterior Bilateral Throughout] Pulse Rate [ Apical] Respiratory Rate Respiratory 20 Rate [Anterior Bilateral Throughout] Blood Pressure Blood Pressure [Left] O2 Sat by Pulse 92 Oximetry General appearance: Present: no acute distress, well-nourished - EENT Eyes: PERRL, EOM intact ENT: hearing intact, clear oral mucosa Ears: bilateral: normal - Neck Neck: supple, normal ROM - Respiratory Respiratory effort: normal Respiratory: bilateral: CTA - Breasts Breasts: normal - Cardiovascular Rhythm: regular Heart Sounds: Present: S1 & S2. Absent: gallop, rub Extremities: no ischemia, pulses intact, No edema, normal color, Full ROM - Gastrointestinal General gastrointestinal: Present: soft, non-tender, non-distended, normal bowel sounds - Genitourinary Male genitourinary: normal - Integumentary Integumentary: clear, warm, dry - Musculoskeletal Musculoskeletal: 1, strength equal bilaterally - Neurologic Neurologic: moves all extremities - Psychiatric Psychiatric: memory intact, appropriate mood/affect, intact judgment & insight - Labs CBC & Chem 7: 04/03/19 05:48 04/04/19 04:23 Labs: Abnormal lab results 04/02/19 04/02/19 04/02/19 Range/Units 11:46 14:45 20:59 RBC (3.65-5.03) M/mm3 Hgb (11.8-15.2) gm/dl Hct (35.5-45.6) % MCV (84-94) fl MCH (28-32) pg RDW (13.2-15.2) % Lymph % (Auto) (13.4-35.0) % [place] % (Auto) (0.0-7.3) % Lymph # (1.2-5.4) K/mm3 Seg Neutrophils % (40.0-70.0) % ABG pO2 73.3 L (80.0-90.0) mm Hg ABG HCO3 34.3 H (20.0-26.0) mmol/L ABG Base Excess 8.7 H (-2.0-3.0) mmol/L ABG Hemoglobin 11.1 L (14.0-18.0) gm/dl Oxyhemoglobin 93.5 L (95.0-99.0) % Sodium (137-145) mmol/L Potassium (3.6-5.0) mmol/L Carbon Dioxide (22-30) mmol/L BUN (9-20) mg/dL Creatinine (0.8-1.5) mg/dL Glucose (75-100) mg/dL POC Glucose 186 H 195 H (70-105) Magnesium (1.7-2.3) mg/dL Albumin (3.9-5) g/dL 04/03/19 04/03/19 04/03/19 Range/Units 00:23 05:48 05:48 RBC 3.46 L (3.65-5.03) M/mm3 Hgb 11.5 L (11.8-15.2) gm/dl Hct 34.8 L (35.5-45.6) % MCV 101 H (84-94) fl MCH 33 H (28-32) pg RDW 15.5 H (13.2-15.2) % Lymph % (Auto) 13.2 L (13.4-35.0) % [place] % (Auto) 8.8 H (0.0-7.3) % Lymph # 0.8 L (1.2-5.4) K/mm3 Seg Neutrophils % 77.8 H (40.0-70.0) % ABG pO2 (80.0-90.0) mm Hg ABG HCO3 (20.0-26.0) mmol/L ABG Base Excess (-2.0-3.0) mmol/L ABG Hemoglobin (14.0-18.0) gm/dl Oxyhemoglobin (95.0-99.0) % Sodium 152 H (137-145) mmol/L Potassium 3.1 L (3.6-5.0) mmol/L Carbon Dioxide 34 H (22-30) mmol/L BUN 71 H (9-20) mg/dL Creatinine 1.8 H (0.8-1.5) mg/dL Glucose 128 H (75-100) mg/dL POC Glucose 211 H (70-105) Magnesium 2.50 H (1.7-2.3) mg/dL Albumin 3.6 L (3.9-5) g/dL 04/03/19 Range/Units 06:00 RBC (3.65-5.03) M/mm3 Hgb (11.8-15.2) gm/dl Hct (35.5-45.6) % MCV (84-94) fl MCH (28-32) pg RDW (13.2-15.2) % Lymph % (Auto) (13.4-35.0) % [place] % (Auto) (0.0-7.3) % Lymph # (1.2-5.4) K/mm3 Seg Neutrophils % (40.0-70.0) % ABG pO2 (80.0-90.0) mm Hg ABG HCO3 (20.0-26.0) mmol/L ABG Base Excess (-2.0-3.0) mmol/L ABG Hemoglobin (14.0-18.0) gm/dl Oxyhemoglobin (95.0-99.0) % Sodium (137-145) mmol/L Potassium (3.6-5.0) mmol/L Carbon Dioxide (22-30) mmol/L BUN (9-20) mg/dL Creatinine (0.8-1.5) mg/dL Glucose (75-100) mg/dL POC Glucose 124 H (70-105) Magnesium (1.7-2.3) mg/dL Albumin (3.9-5) g/dL BMP 04/04/19 04:23 Sodium 155 H Potassium 3.1 L Chloride 107.8 H Carbon Dioxide 34 H BUN 64 H Creatinine 1.9 H Glucose 76 Calcium 9.1
[2019-04-03] MEDS ORDERED: K-DUR PO NR (09:55)
[2019-04-03] MEDS ORDERED: NACL 0.45% 500 ML IV SCH (10:00)
--- NOTE | 2019-04-03 11:17 | Progress Note ---
Assessment and Plan Currently in AFib with HR 90s - 100s. Cont Cardizem and eliquis. Convert IV lopressor to PO lopressor. Replete lytes PRN. Echo reviewed - EF 55-60%, abnormal diastolic function. The patient has been seen in conjunction with Dr. oYung who agrees with the assessment and plan of care. - Patient Problems (1) Atrial fibrillation with RVR Current Visit: Yes Status: Acute (2) Acute renal failure Current Visit: Yes Status: Acute (3) Hypernatremia Current Visit: Yes Status: Acute (4) Altered mental status Current Visit: Yes Status: Acute (5) Alcohol withdrawal Current Visit: Yes Status: Suspected (6) COPD (chronic obstructive pulmonary disease) Current Visit: Yes Status: Chronic (7) Sleep apnea Current Visit: Yes Status: Chronic (8) Obesity Current Visit: Yes Status: Chronic (9) HTN (hypertension) Current Visit: Yes Status: Chronic (10) Diabetes Current Visit: Yes Status: Chronic Subjective Date of service: 04/03/19 Principal diagnosis: Afib Interval history: pt resting in bed, sleepy, confused. tele reviewed - in AFib with HR 90s - 100s overnight. Objective Last Vital Signs Temp 97.7 F 04/03/19 07:49 Pulse 93 H 04/03/19 08:40 Resp 20 04/03/19 08:40 BP 138/80 04/03/19 07:49 Pulse Ox 92 04/03/19 08:21 - Physical Examination General: Other (sleepy, confused) HEENT: Positive: PERRL, Normocephaly Neck: Positive: neck supple. Negative: JVD/HJR, Bruit Cardiac: Positive: irregularly irregular, S1/S2 Lungs: Positive: Decreased Breath Sounds Neuro: Positive: Other (confused) Abdomen: Positive: Soft. Negative: Tender Skin: Negative: Rash Musculoskeletal: Normal Range of Motion Extremities: Present: +1 Edema, Other (pedal pulse intact) - Labs and Meds Cardiac Enzymes 04/03/19 Range/Units 05:48 AST 33 (5-40) units/L CBC 04/03/19 Range/Units 05:48 WBC 6.2 (4.5-11.0) K/mm3 RBC 3.46 L (3.65-5.03) M/mm3 Hgb 11.5 L (11.8-15.2) gm/dl Hct 34.8 L (35.5-45.6) % Plt Count 318 (140-440) K/mm3 Lymph # 0.8 L (1.2-5.4) K/mm3 [place] # 0.5 (0.0-0.8) K/mm3 Eos # 0.0 (0.0-0.4) K/mm3 Baso # 0.0 (0.0-0.1) K/mm3 Comprehensive Metabolic Panel 04/03/19 Range/Units 05:48 Sodium 152 H (137-145) mmol/L Potassium 3.1 L (3.6-5.0) mmol/L Chloride 104.3 (98-107) mmol/L Carbon Dioxide 34 H (22-30) mmol/L BUN 71 H (9-20) mg/dL Creatinine 1.8 H (0.8-1.5) mg/dL Glucose 128 H (75-100) mg/dL Calcium 9.2 (8.4-10.2) mg/dL Direct Bilirubin 0.2 (0-0.2) mg/dL Indirect Bilirubin 0.3 mg/dL AST 33 (5-40) units/L ALT 31 (7-56) units/L Alkaline Phosphatase 109 (35-129) units/L Total Protein 6.9 (6.3-8.2) g/dL Albumin 3.6 L (3.9-5) g/dL
--- NOTE | 2019-04-03 11:50 | Progress Note ---
Assessment and Plan Alcohol and substance abuse withdrawal Also positive drug screen Continue CIWA protocol renal fn improving Patient appears to be volume depleted with contraction alkalosis. Consider continuation of IV fluids or increase oral fluid intake. Nephrology following continue to monitor closely continue on meds steroids taper continue BiPAP at night and prn Will need to repeat sleep study compliance w meds weight loss needed Subjective Date of service: 04/03/19 Principal diagnosis: Afib Interval history: Remain somewhat confused and disoriented. Much worse today. Currently on CINE protocol. Objective Vital Signs - 12hr 04/03/19 04/03/19 04/03/19 00:28 02:42 03:38 Temperature Pulse Rate 88 88 88 Pulse Rate [ Anterior Bilateral Throughout] Respiratory 18 Rate Respiratory Rate [Anterior Bilateral Throughout] Blood Pressure 112/66 112/66 112/66 Blood Pressure [Left] O2 Sat by Pulse 96 Oximetry 04/03/19 04/03/19 04/03/19 04:50 05:38 07:49 Temperature 98 F 97.7 F Pulse Rate 68 68 69 Pulse Rate [ Anterior Bilateral Throughout] Respiratory 18 20 Rate Respiratory Rate [Anterior Bilateral Throughout] Blood Pressure 121/68 138/80 Blood Pressure 121/68 [Left] O2 Sat by Pulse 91 91 Oximetry 04/03/19 04/03/19 08:21 08:40 Temperature Pulse Rate Pulse Rate [ 93 H Anterior Bilateral Throughout] Respiratory Rate Respiratory 20 Rate [Anterior Bilateral Throughout] Blood Pressure Blood Pressure [Left] O2 Sat by Pulse 92 Oximetry Constitutional: no acute distress, other (obese) Eyes: non-icteric ENT: oropharynx moist Neck: supple Ascultation: Bilateral: clear, wheezes Percussion: Bilateral: not dull Cardiovascular: regular rate and rhythm Gastrointestinal: normoactive bowel sounds, soft, non-distended, other (obese) Integumentary: normal Extremities: no cyanosis Neurologic: non-focal exam Psychiatric: mood appropriate CBC and BMP: 04/03/19 05:48 04/03/19 05:48 ABG, PT/INR, D-dimer: ABG POC ABG pH 7.827 (7.35-7.45) H 04/02/19 03:09 ABG pH 7.435 pH Units (7.350-7.450) 04/02/19 14:45 ABG pCO2 52.3 mm Hg 04/02/19 14:45 POC ABG pO2 157 (80-105) H 04/02/19 03:09 ABG pO2 73.3 mm Hg (80.0-90.0) L 04/02/19 14:45 POC ABG HCO3 30.3 (22-26 mml/L) 04/02/19 03:09 POC ABG Total CO2 31 (23-27mmol/L) 04/02/19 03:09 POC ABG O2 Sat 100 04/02/19 03:09 ABG O2 Saturation 95.3 % (95.0-99.0) 04/02/19 14:45 Abnormal lab findings: Abnormal Labs 03/29/19 03/29/19 03/29/19 13:18 13:18 18:22 RBC 3.24 L Hgb 10.6 L Hct 33.2 L MCV 103 H MCH 33 H RDW 15.5 H Lymph % (Auto) 9.4 L [place] % (Auto) 7.8 H Lymph # 0.8 L Seg Neutrophils % 81.5 H POC ABG pH 7.122 L ABG pH POC ABG pCO2 45.4 H POC ABG pO2 ABG pO2 ABG HCO3 ABG O2 Saturation ABG Base Excess ABG Hemoglobin Oxyhemoglobin Sodium 132 L Potassium 6.6 H* Chloride 94.9 L Carbon Dioxide 14 L BUN 73 H Creatinine 8.6 H Glucose POC Glucose Hemoglobin A1c Phosphorus Magnesium AST 48 H Alkaline Phosphatase 136 H Total Creatine Kinase 2408 H CK-MB (CK-2) 17.6 H Albumin Urine Creatinine Urine Total Protein 03/29/19 03/30/19 03/30/19 23:37 05:58 10:00 RBC Hgb Hct MCV MCH RDW Lymph % (Auto) [place] % (Auto) Lymph # Seg Neutrophils % POC ABG pH 7.143 L ABG pH POC ABG pCO2 50.5 H POC ABG pO2 159 H ABG pO2 ABG HCO3 ABG O2 Saturation ABG Base Excess ABG Hemoglobin Oxyhemoglobin Sodium Potassium Chloride Carbon Dioxide BUN Creatinine Glucose POC Glucose Hemoglobin A1c 6.4 H Phosphorus Magnesium AST Alkaline Phosphatase Total Creatine Kinase CK-MB (CK-2) Albumin Urine Creatinine 227.1 H Urine Total Protein 31 H 03/30/19 03/30/19 03/30/19 10:00 10:12 10:12 RBC 3.17 L Hgb 10.5 L Hct 31.8 L MCV 100 H MCH 33 H RDW Lymph % (Auto) 8.1 L [place] % (Auto) Lymph # 0.5 L Seg Neutrophils % 88.0 H POC ABG pH ABG pH POC ABG pCO2 POC ABG pO2 ABG pO2 ABG HCO3 ABG O2 Saturation ABG Base Excess ABG Hemoglobin Oxyhemoglobin Sodium 132 L Potassium 6.6 H* Chloride 91.9 L Carbon Dioxide 19 L BUN 89 H Creatinine 7.2 H Glucose 302 H POC Glucose Hemoglobin A1c Phosphorus 7.50 H Magnesium AST Alkaline Phosphatase Total Creatine Kinase CK-MB (CK-2) Albumin Urine Creatinine 230.8 H Urine Total Protein 32 H 03/30/19 03/30/19 03/30/19 11:42 16:54 17:45 RBC Hgb Hct MCV MCH RDW Lymph % (Auto) [place] % (Auto) Lymph # Seg Neutrophils % POC ABG pH ABG pH 7.294 L POC ABG pCO2 POC ABG pO2 ABG pO2 67.1 L ABG HCO3 19.4 L ABG O2 Saturation 91.4 L ABG Base Excess -6.7 L ABG Hemoglobin 9.9 L Oxyhemoglobin 89.4 L Sodium Potassium Chloride Carbon Dioxide BUN Creatinine Glucose POC Glucose 275 H 361 H Hemoglobin A1c Phosphorus Magnesium AST Alkaline Phosphatase Total Creatine Kinase CK-MB (CK-2) Albumin Urine Creatinine Urine Total Protein 03/30/19 03/30/19 03/30/19 20:00 20:28 23:27 RBC Hgb Hct MCV MCH RDW Lymph % (Auto) [place] % (Auto) Lymph # Seg Neutrophils % POC ABG pH ABG pH 7.293 L POC ABG pCO2 POC ABG pO2 ABG pO2 ABG HCO3 ABG O2 Saturation ABG Base Excess -5.9 L ABG Hemoglobin 11.0 L Oxyhemoglobin 94.1 L Sodium 134 L Potassium Chloride 92.9 L Carbon Dioxide 19 L BUN 93 H Creatinine 5.5 H Glucose 374 H POC Glucose 372 H Hemoglobin A1c Phosphorus Magnesium AST Alkaline Phosphatase Total Creatine Kinase CK-MB (CK-2) Albumin Urine Creatinine Urine Total Protein 03/31/19 03/31/19 03/31/19 04:39 04:39 05:27 RBC 3.08 L Hgb 10.3 L Hct 30.6 L MCV 99 H MCH 33 H RDW Lymph % (Auto) 6.5 L [place] % (Auto) Lymph # 0.3 L Seg Neutrophils % 86.6 H POC ABG pH ABG pH POC ABG pCO2 POC ABG pO2 ABG pO2 ABG HCO3 ABG O2 Saturation ABG Base Excess ABG Hemoglobin Oxyhemoglobin Sodium 135 L Potassium Chloride 92.7 L Carbon Dioxide BUN 92 H Creatinine 4.5 H Glucose 344 H POC Glucose 354 H Hemoglobin A1c Phosphorus Magnesium AST Alkaline Phosphatase Total Creatine Kinase CK-MB (CK-2) Albumin Urine Creatinine Urine Total Protein 03/31/19 03/31/19 03/31/19 08:03 12:08 17:08 RBC Hgb Hct MCV MCH RDW Lymph % (Auto) [place] % (Auto) Lymph # Seg Neutrophils % POC ABG pH ABG pH POC ABG pCO2 POC ABG pO2 ABG pO2 ABG HCO3 ABG O2 Saturation ABG Base Excess ABG Hemoglobin Oxyhemoglobin Sodium Potassium Chloride Carbon Dioxide BUN Creatinine Glucose POC Glucose 375 H 410 H 361 H Hemoglobin A1c Phosphorus Magnesium AST Alkaline Phosphatase Total Creatine Kinase CK-MB (CK-2) Albumin Urine Creatinine Urine Total Protein 03/31/19 04/01/19 04/01/19 23:12 05:22 08:28 RBC Hgb Hct MCV MCH RDW Lymph % (Auto) [place] % (Auto) Lymph # Seg Neutrophils % POC ABG pH ABG pH POC ABG pCO2 POC ABG pO2 ABG pO2 ABG HCO3 ABG O2 Saturation ABG Base Excess ABG Hemoglobin Oxyhemoglobin Sodium Potassium Chloride Carbon Dioxide BUN Creatinine Glucose POC Glucose 355 H 300 H 259 H Hemoglobin A1c Phosphorus Magnesium AST Alkaline Phosphatase Total Creatine Kinase CK-MB (CK-2) Albumin Urine Creatinine Urine Total Protein 04/01/19 04/01/19 04/01/19 11:35 16:18 23:27 RBC Hgb Hct MCV MCH RDW Lymph % (Auto) [place] % (Auto) Lymph # Seg Neutrophils % POC ABG pH ABG pH POC ABG pCO2 POC ABG pO2 ABG pO2 ABG HCO3 ABG O2 Saturation ABG Base Excess ABG Hemoglobin Oxyhemoglobin Sodium Potassium Chloride Carbon Dioxide BUN Creatinine Glucose POC Glucose 283 H 169 H 344 H Hemoglobin A1c Phosphorus Magnesium AST Alkaline Phosphatase Total Creatine Kinase CK-MB (CK-2) Albumin Urine Creatinine Urine Total Protein 04/02/19 04/02/19 04/02/19 02:39 03:09 05:11 RBC Hgb Hct MCV MCH RDW Lymph % (Auto) [place] % (Auto) Lymph # Seg Neutrophils % POC ABG pH 7.827 H ABG pH POC ABG pCO2 POC ABG pO2 157 H ABG pO2 ABG HCO3 ABG O2 Saturation ABG Base Excess ABG Hemoglobin Oxyhemoglobin Sodium 149 H D Potassium 3.3 L Chloride Carbon Dioxide 35 H D BUN 78 H Creatinine 2.2 H D Glucose 185 H POC Glucose 252 H Hemoglobin A1c Phosphorus Magnesium AST Alkaline Phosphatase Total Creatine Kinase CK-MB (CK-2) Albumin Urine Creatinine Urine Total Protein 04/02/19 04/02/19 04/02/19 05:31 08:28 11:46 RBC Hgb Hct MCV MCH RDW Lymph % (Auto) [place] % (Auto) Lymph # Seg Neutrophils % POC ABG pH ABG pH POC ABG pCO2 POC ABG pO2 ABG pO2 ABG HCO3 ABG O2 Saturation ABG Base Excess ABG Hemoglobin Oxyhemoglobin Sodium Potassium Chloride Carbon Dioxide BUN Creatinine Glucose POC Glucose 160 H 140 H 186 H Hemoglobin A1c Phosphorus Magnesium AST Alkaline Phosphatase Total Creatine Kinase CK-MB (CK-2) Albumin Urine Creatinine Urine Total Protein 04/02/19 04/02/19 04/03/19 14:45 20:59 00:23 RBC Hgb Hct MCV MCH RDW Lymph % (Auto) [place] % (Auto) Lymph # Seg Neutrophils % POC ABG pH ABG pH POC ABG pCO2 POC ABG pO2 ABG pO2 73.3 L ABG HCO3 34.3 H ABG O2 Saturation ABG Base Excess 8.7 H ABG Hemoglobin 11.1 L Oxyhemoglobin 93.5 L Sodium Potassium Chloride Carbon Dioxide BUN Creatinine Glucose POC Glucose 195 H 211 H Hemoglobin A1c Phosphorus Magnesium AST Alkaline Phosphatase Total Creatine Kinase CK-MB (CK-2) Albumin Urine Creatinine Urine Total Protein 04/03/19 04/03/19 04/03/19 05:48 05:48 06:00 RBC 3.46 L Hgb 11.5 L Hct 34.8 L MCV 101 H MCH 33 H RDW 15.5 H Lymph % (Auto) 13.2 L [place] % (Auto) 8.8 H Lymph # 0.8 L Seg Neutrophils % 77.8 H POC ABG pH ABG pH POC ABG pCO2 POC ABG pO2 ABG pO2 ABG HCO3 ABG O2 Saturation ABG Base Excess ABG Hemoglobin Oxyhemoglobin Sodium 152 H Potassium 3.1 L Chloride Carbon Dioxide 34 H BUN 71 H Creatinine 1.8 H Glucose 128 H POC Glucose 124 H Hemoglobin A1c Phosphorus Magnesium 2.50 H AST Alkaline Phosphatase Total Creatine Kinase CK-MB (CK-2) Albumin 3.6 L Urine Creatinine Urine Total Protein
[2019-04-03] MEDS: LOPRESSOR PO SCH ×2 (12:33→21:43)
[2019-04-03] MEDS: ELIQUIS PO SCH ×2 (12:34→21:44)
[2019-04-03] MEDS: LANTUS SUB-Q SCH ×2 (12:39→22:09)
[2019-04-03] MEDS: SODIUM CHLORIDE FLUSH SYRINGE 10 ML IV SCH ×2 (12:43→21:44)
[2019-04-03] MEDS: PEPCID PO SCH ×2 (12:49→21:44)
--- NOTE | 2019-04-03 13:25 | Cat Scan Report ---
CT head/brain wo con INDICATION / CLINICAL INFORMATION: 58 years Male; ams. TECHNIQUE: Routine CT head without contrast. All CT scans at this location are performed using CT dos e reduction for ALARA by means of automated exposure control. COMPARISON: 02/02/2009 FINDINGS: BRAIN / INTRACRANIAL CONTENTS: Prominent ventricular system seen, which may be related to central atr ophy. Ventricles have mildly to moderately increased in size when compared with prior. Normal pressur e hydrocephalus might be a consideration. Certainly, findings do not have the appearance of obstructi ve hydrocephalus. Otherwise, no acute hemorrhage, mass effect, midline shift or acute, large territorial infarct. No si gnificant white matter abnormality. CRANIOCERVICAL JUNCTION: No significant abnormality. ORBITS: No significant abnormality of visualized orbits. SINUSES / MASTOIDS: Air-fluid level with desiccated secretions and mucosal thickening seen in the rig ht maxillary antrum. Mild mucosal thickening seen in the ethmoids as well. ADDITIONAL FINDINGS: None. IMPRESSION: 1. Prominent ventricular system as described above. 2. Otherwise, no focal mass, hemorrhage, or acute, large territorial infarct. 3. Sinus disease noted. Signer Name: Dwight Mora MD, III Signed: 04/03/2019 1:21 PM Workstation Name: [id number]
[2019-04-03] MEDS: PROzac PO SCH (13:57)
--- NOTE | 2019-04-03 14:06 | Progress Note ---
Assessment and Plan Acute Renal Failure secondary to Prerenal vs ATN from Hypotension, no obstruction: Hyperkalemia, Resolved: Acidosis, Resolved: Hypernatremia: Hypokalemia: COPD: -Renal function reviewed. Serum creatinine trend down to 1.8 today, yesterday's was 2.2, non-oliguric -Hypernatremia-On 08/15 NS@ 100 ml/hr, encourage free water intake -Hypokalemia- replete electrolytes as needed, KCl 20 meq po x 1 -Urine eosinophils negative -Renal US showed no hydronephrosis -Obtain daily weights -Monitor I/O's, tello present -Avoid nephrotoxic agents -No acute indication for HD at this time -Will monitor renal function closely Subjective Date of service: 04/03/19 Principal diagnosis: Afib Interval history: Patient seen lying in bed. Confused. Sitter at bedside. No family at bedside. Objective - Vital Signs Vital signs: Vital Signs - 12hr 04/03/19 04/03/19 04/03/19 02:42 03:38 04:50 Temperature 98 F Pulse Rate 88 88 68 Pulse Rate [ Anterior Bilateral Throughout] Respiratory 18 18 Rate Respiratory Rate [Anterior Bilateral Throughout] Blood Pressure 112/66 112/66 Blood Pressure 121/68 [Left] O2 Sat by Pulse 96 91 Oximetry 04/03/19 04/03/19 04/03/19 05:38 07:49 08:21 Temperature 97.7 F Pulse Rate 68 69 Pulse Rate [ Anterior Bilateral Throughout] Respiratory 20 Rate Respiratory Rate [Anterior Bilateral Throughout] Blood Pressure 121/68 138/80 Blood Pressure [Left] O2 Sat by Pulse 91 92 Oximetry 04/03/19 04/03/19 04/03/19 08:40 12:17 12:33 Temperature Pulse Rate 120 H 131 H Pulse Rate [ 93 H Anterior Bilateral Throughout] Respiratory Rate Respiratory 20 Rate [Anterior Bilateral Throughout] Blood Pressure Blood Pressure [Left] O2 Sat by Pulse Oximetry - General Appearance General appearance: well-developed, appears stated age, fatigue EENT: ATNC, PERRL Neck: no JVD, supple Respiratory: Present: Decreased Breath Sounds Cardiology: tachycardia, S1S2 Gastrointestinal: normoactive bowel sounds Integumentary: warm and dry Neurologic: other (Confused) Musculoskeletal: other (No edema) - Lab 04/03/19 05:48 04/03/19 05:48 Most recent lab results ABG pH 7.435 pH Units (7.350-7.450) 04/02/19 14:45 ABG pCO2 52.3 mm Hg 04/02/19 14:45 ABG pO2 73.3 mm Hg (80.0-90.0) L 04/02/19 14:45 ABG HCO3 34.3 mmol/L (20.0-26.0) H 04/02/19 14:45 ABG O2 Saturation 95.3 % (95.0-99.0) 04/02/19 14:45 Calcium 9.2 mg/dL (8.4-10.2) 04/03/19 05:48 Phosphorus 3.20 mg/dL (2.5-4.5) 04/03/19 05:48 Magnesium 2.50 mg/dL (1.7-2.3) H 04/03/19 05:48 227.1 mg/dL (0.1-20.0) H 03/30/19 10:00 230.8 mg/dL (0.1-20.0) H 03/30/19 10:00 22 mmol/L 03/30/19 10:00 31 mg/dL (5-11.8) H 03/30/19 10:00 32 mg/dL (5-11.8) H 03/30/19 10:00 Medications & Allergies - Medications Allergies/Adverse Reactions: Allergies No Known Allergies Allergy (Unverified 08/21/14 12:00) Home Medications: Home Medications Medication Instructions Recorded Confirmed Last Taken Type ALBUTEROL Inhaler (OR & NICU) 2 puff IH QID PRN 03/29/19 03/29/19 03/29/19 History [Proair] Apixaban [Eliquis] 5 mg PO BID 03/29/19 03/29/19 03/27/19 History AtorvaSTATin [Lipitor] 40 mg PO DAILY 03/29/19 03/29/19 03/27/19 History FLUoxetine HCL [Prozac] 10 mg PO QDAY 03/29/19 03/29/19 03/27/19 History Glimepiride [Amaryl] 2 mg PO BID 03/29/19 03/29/19 03/27/19 History Lisinopril [Zestril] 5 mg PO QDAY 03/29/19 03/29/19 03/27/19 History Metformin HCl [metFORMIN] 1,000 mg PO BID 03/29/19 03/29/19 03/29/19 History Pantoprazole [Protonix] 40 mg PO QDAY 03/29/19 03/29/19 03/27/19 History Tiotropium [place] [Spiriva 4 gm IH QDAY 03/29/19 03/29/19 Unknown History Respimat] Active Medications: Generic Name Dose Route Start Last Admin Trade Name Freq PRN Reason Stop Dose Admin Acetaminophen 650 mg 03/29/19 22:13 Tylenol PO Q4H PRN Pain MILD(1-3)/Fever >100.5/ARIAS Albuterol 2.5 mg 03/29/19 22:15 04/02/19 02:10 Proventil IH 2.5 mg Q4HRT PRN Administration Shortness Of Breath Albuterol/Ipratropium 1 ampul 03/31/19 14:00 04/03/19 08:21 Duoneb *Not For Prn Use* IH 1 ampul TIDRT RADHA Administration Apixaban 5 mg 03/31/19 02:00 04/03/19 12:34 Eliquis PO 5 mg BID RADHA Administration Protocol Atorvastatin Calcium 40 mg 03/31/19 10:00 04/03/19 12:50 Lipitor PO 40 mg DAILY RADHA Administration Benzonatate 100 mg 03/31/19 14:00 04/03/19 05:39 Tessalon Perles PO 100 mg Q8HR RADHA Administration Dextrose 50 ml 03/30/19 16:21 D50w (25gm) Syringe IV PRN PRN Hypoglycemia Diltiazem HCl 60 mg 04/01/19 13:28 04/03/19 12:17 Cardizem PO 60 mg Q6HR RADHA Administration Diltiazem HCl 15 mg 04/01/19 13:29 Cardizem IV PRN PRN HR >150 lasting >2 minutes Famotidine 10 mg 03/31/19 10:00 04/03/19 12:49 Pepcid PO 10 mg BID RADHA Administration Fluoxetine HCl 10 mg 03/31/19 02:00 04/02/19 10:49 Prozac PO 10 mg QDAY RADHA Administration Guaifenesin 5 ml 03/31/19 13:07 04/01/19 21:53 Guaifenesin Dm Syrup PO 5 ml Q6H PRN Administration Cough Hydralazine HCl 10 mg 03/31/19 01:41 Apresoline IV Q4HR PRN Blood Pressure Hydromorphone HCl 0.25 mg 03/31/19 11:39 Dilaudid IV Q3H PRN Pain , Severe (7-10) Levofloxacin/Dextrose 500 mg in 100 mls @ 100 mls/hr 03/31/19 23:00 04/02/19 22:42 Levaquin 500mg/100ml IV 04/04/19 22:59 100 mls/hr Q48H RADHA Administration Sodium Chloride 1,000 mls @ 100 mls/hr 04/02/19 11:00 04/02/19 10:47 Nacl 0.45% 1000 Ml IV 100 mls/hr DIRECT RADHA Administration Sodium Chloride 500 mls @ 100 mls/hr 04/03/19 10:00 Nacl 0.45% IV DIRECT RADHA Insulin Glargine 30 units 04/01/19 11:00 04/03/19 12:39 Lantus SUB-Q 30 units BID RADHA Administration Insulin Human Lispro 0 unit 03/31/19 00:00 04/03/19 12:18 Humalog SUB-Q Not Given Q6HR [facility] Protocol Insulin Human Lispro 10 unit 04/01/19 07:30 04/03/19 07:30 Humalog SUB-Q Not Given AC RADHA Lorazepam 2 mg 03/31/19 11:35 04/03/19 12:15 Ativan IV 2 mg Q1HR PRN Administration CIWA-Ar 8-15 Lorazepam 4 mg 03/31/19 11:35 04/01/19 21:52 Ativan PO 4 mg Q1HR PRN Administration CIWA-Ar 16-25 Lorazepam 4 mg 03/31/19 11:35 04/02/19 21:29 Ativan IV 4 mg Q15MIN PRN Administration CIWA-Ar >25 Methylprednisolone Sodium Succinate 60 mg 03/30/19 13:00 04/03/19 05:11 Solu-Medrol IV 60 mg Q8H RADHA Administration Metoclopramide HCl 5 mg 03/29/19 22:13 03/30/19 20:54 Reglan IV 5 mg Q6H PRN Administration Nausea And Vomiting Metoprolol Tartrate 50 mg 04/03/19 12:00 04/03/19 12:33 Lopressor PO 50 mg BID RADHA Administration Ondansetron HCl 4 mg 03/29/19 22:13 Zofran IV Q8H PRN Nausea And Vomiting Sodium Chloride 10 ml 03/30/19 10:00 04/03/19 12:43 Sodium Chloride Flush Syringe 10 Ml IV 10 ml BID RADHA Administration Sodium Chloride 10 ml 03/29/19 22:13 Sodium Chloride Flush Syringe 10 Ml IV PRN PRN LINE FLUSH
[2019-04-03] MEDS ORDERED: K-DUR PO ONE (15:00)
--- NOTE | 2019-04-03 17:47 | Consultation ---
History of Present Illness Consult date: 04/03/19 Chief complaint: AMS History of present illness: This is a 58 YO M who presented tot he ED with shortness of breath. Seems to have been altered for a while, ? withdrawing. Pt is somnolent on my interview but will answer basic questions and follow simple commands. oriented x 3. Past History Past Medical History: atrial fib, COPD, diabetes, hypertension Past Surgical History: appendectomy, Other (elbow surgery) Social history: no significant social history Family history: no significant family history Medications and Allergies Allergies Allergy/AdvReac Type Severity Reaction Status Date / Time No Known Allergies Allergy Unverified 08/21/14 12:00 Home Medications Medication Instructions Recorded Confirmed Last Taken Type ALBUTEROL Inhaler (OR & NICU) 2 puff IH QID PRN 03/29/19 03/29/19 03/29/19 History [Proair] Apixaban [Eliquis] 5 mg PO BID 03/29/19 03/29/19 03/27/19 History AtorvaSTATin [Lipitor] 40 mg PO DAILY 03/29/19 03/29/19 03/27/19 History FLUoxetine HCL [Prozac] 10 mg PO QDAY 03/29/19 03/29/19 03/27/19 History Glimepiride [Amaryl] 2 mg PO BID 03/29/19 03/29/19 03/27/19 History Lisinopril [Zestril] 5 mg PO QDAY 03/29/19 03/29/19 03/27/19 History Metformin HCl [metFORMIN] 1,000 mg PO BID 03/29/19 03/29/19 03/29/19 History Pantoprazole [Protonix] 40 mg PO QDAY 03/29/19 03/29/19 03/27/19 History Tiotropium [place] [Spiriva 4 gm IH QDAY 03/29/19 03/29/19 Unknown History Respimat] Active Meds: Active Medications Acetaminophen (Tylenol) 650 mg PO Q4H PRN PRN Reason: Pain MILD(1-3)/Fever >100.5/ARIAS Albuterol (Proventil) 2.5 mg IH Q4HRT PRN PRN Reason: Shortness Of Breath Last Admin: 04/02/19 02:10 Dose: 2.5 mg Documented by: Albuterol/Ipratropium (Duoneb *Not For Prn Use*) 1 ampul IH TIDRT [facility] Last Admin: 04/03/19 15:04 Dose: 1 ampul Documented by: Apixaban (Eliquis) 5 mg PO BID [facility]; Protocol Last Admin: 04/03/19 12:34 Dose: 5 mg Documented by: Atorvastatin Calcium (Lipitor) 40 mg PO DAILY [facility] Last Admin: 04/03/19 12:50 Dose: 40 mg Documented by: Benzonatate (Tessalon Perles) 100 mg PO Q8HR [facility] Last Admin: 04/03/19 13:57 Dose: 100 mg Documented by: Dextrose (D50w (25gm) Syringe) 50 ml IV PRN PRN PRN Reason: Hypoglycemia Diltiazem HCl (Cardizem) 60 mg PO Q6HR [facility] Last Admin: 04/03/19 12:17 Dose: 60 mg Documented by: Diltiazem HCl (Cardizem) 15 mg IV PRN PRN PRN Reason: HR >150 lasting >2 minutes Famotidine (Pepcid) 10 mg PO BID [facility] Last Admin: 04/03/19 12:49 Dose: 10 mg Documented by: Fluoxetine HCl (Prozac) 10 mg PO QDAY [facility] Last Admin: 04/03/19 13:57 Dose: 10 mg Documented by: Guaifenesin (Guaifenesin Dm Syrup) 5 ml PO Q6H PRN PRN Reason: Cough Last Admin: 04/01/19 21:53 Dose: 5 ml Documented by: Hydralazine HCl (Apresoline) 10 mg IV Q4HR PRN PRN Reason: Blood Pressure Hydromorphone HCl (Dilaudid) 0.25 mg IV Q3H PRN PRN Reason: Pain , Severe (7-10) Levofloxacin/Dextrose (Levaquin 500mg/100ml) 500 mg in 100 mls @ 100 mls/hr IV Q48H [facility] Stop: 04/04/19 22:59 Last Admin: 04/02/19 22:42 Dose: 100 mls/hr Documented by: Sodium Chloride (Nacl 0.45% 1000 Ml) 1,000 mls @ 100 mls/hr IV DIRECT [facility] Last Admin: 04/02/19 10:47 Dose: 100 mls/hr Documented by: Sodium Chloride (Nacl 0.45%) 500 mls @ 100 mls/hr IV DIRECT [facility] Insulin Glargine (Lantus) 30 units SUB-Q BID [facility] Last Admin: 04/03/19 12:39 Dose: 30 units Documented by: Insulin Human Lispro (Humalog) 0 unit SUB-Q Q6HR [facility]; Protocol Last Admin: 04/03/19 15:00 Dose: 3 unit Documented by: Insulin Human Lispro (Humalog) 10 unit SUB-Q AC [facility] Last Admin: 04/03/19 15:00 Dose: 10 unit Documented by: Lorazepam (Ativan) 2 mg IV Q1HR PRN PRN Reason: CIWA-Ar 8-15 Last Admin: 04/03/19 12:15 Dose: 2 mg Documented by: Lorazepam (Ativan) 4 mg PO Q1HR PRN PRN Reason: CIWA-Ar 16-25 Last Admin: 04/01/19 21:52 Dose: 4 mg Documented by: Lorazepam (Ativan) 4 mg IV Q15MIN PRN PRN Reason: CIWA-Ar >25 Last Admin: 04/02/19 21:29 Dose: 4 mg Documented by: Methylprednisolone Sodium Succinate (Solu-Medrol) 60 mg IV Q8H [facility] [place] Last Admin: 04/03/19 13:56 Dose: 60 mg Documented by: Metoclopramide HCl (Reglan) 5 mg IV Q6H PRN PRN Reason: Nausea And Vomiting Last Admin: 03/30/19 20:54 Dose: 5 mg Documented by: Metoprolol Tartrate (Lopressor) 50 mg PO BID [facility] [place] Last Admin: 04/03/19 12:33 Dose: 50 mg Documented by: Ondansetron HCl (Zofran) 4 mg IV Q8H PRN PRN Reason: Nausea And Vomiting Sodium Chloride (Sodium Chloride Flush Syringe 10 Ml) 10 ml IV BID [facility] [place] Last Admin: 04/03/19 12:43 Dose: 10 ml Documented by: Sodium Chloride (Sodium Chloride Flush Syringe 10 Ml) 10 ml IV PRN PRN PRN Reason: LINE FLUSH Review of Systems ROS unobtainable: due to mental status Physical Examination - Vital Signs Vital Signs: Vital Signs Pulse Resp BP Pulse Ox 110 H 30 H 102/62 97 03/29/19 12:40 03/29/19 12:40 03/29/19 12:40 03/29/19 12:40 - Constitutional General appearance: comfortable - EENT EENT: Present: PERRL, mucous membranes moist - Respiratory Respiratory: Present: lungs clear - Cardiovascular Cardiovascular: Present: regular rate - Gastrointestinal Gastrointestinal: Present: normoactive bowel sounds - Neurologic Cranial nerve examination: PERRL, EOMI, face symmetric, tongue midline Detailed motor examination: grossly full strength in Reflex and gait examination: ataxic gate Cerebellar examination: other (unable to follow instructions) Results - Laboratory Findings CBC and BMP: 04/03/19 05:48 04/03/19 05:48 Abnormal Lab Findings: Abnormal Labs 03/29/19 03/29/19 03/29/19 13:18 13:18 18:22 RBC 3.24 L Hgb 10.6 L Hct 33.2 L MCV 103 H MCH 33 H RDW 15.5 H Lymph % (Auto) 9.4 L [place] % (Auto) 7.8 H Lymph # 0.8 L Seg Neutrophils % 81.5 H POC ABG pH 7.122 L ABG pH POC ABG pCO2 45.4 H POC ABG pO2 ABG pO2 ABG HCO3 ABG O2 Saturation ABG Base Excess ABG Hemoglobin Oxyhemoglobin Sodium 132 L Potassium 6.6 H* Chloride 94.9 L Carbon Dioxide 14 L BUN 73 H Creatinine 8.6 H Glucose POC Glucose Hemoglobin A1c Phosphorus Magnesium AST 48 H Alkaline Phosphatase 136 H Total Creatine Kinase 2408 H CK-MB (CK-2) 17.6 H Albumin Urine Creatinine Urine Total Protein 03/29/19 03/30/19 03/30/19 23:37 05:58 10:00 RBC Hgb Hct MCV MCH RDW Lymph % (Auto) [place] % (Auto) Lymph # Seg Neutrophils % POC ABG pH 7.143 L ABG pH POC ABG pCO2 50.5 H POC ABG pO2 159 H ABG pO2 ABG HCO3 ABG O2 Saturation ABG Base Excess ABG Hemoglobin Oxyhemoglobin Sodium Potassium Chloride Carbon Dioxide BUN Creatinine Glucose POC Glucose Hemoglobin A1c 6.4 H Phosphorus Magnesium AST Alkaline Phosphatase Total Creatine Kinase CK-MB (CK-2) Albumin Urine Creatinine 227.1 H Urine Total Protein 31 H 03/30/19 03/30/19 03/30/19 10:00 10:12 10:12 RBC 3.17 L Hgb 10.5 L Hct 31.8 L MCV 100 H MCH 33 H RDW Lymph % (Auto) 8.1 L [place] % (Auto) Lymph # 0.5 L Seg Neutrophils % 88.0 H POC ABG pH ABG pH POC ABG pCO2 POC ABG pO2 ABG pO2 ABG HCO3 ABG O2 Saturation ABG Base Excess ABG Hemoglobin Oxyhemoglobin Sodium 132 L Potassium 6.6 H* Chloride 91.9 L Carbon Dioxide 19 L BUN 89 H Creatinine 7.2 H Glucose 302 H POC Glucose Hemoglobin A1c Phosphorus 7.50 H Magnesium AST Alkaline Phosphatase Total Creatine Kinase CK-MB (CK-2) Albumin Urine Creatinine 230.8 H Urine Total Protein 32 H 03/30/19 03/30/19 03/30/19 11:42 16:54 17:45 RBC Hgb Hct MCV MCH RDW Lymph % (Auto) [place] % (Auto) Lymph # Seg Neutrophils % POC ABG pH ABG pH 7.294 L POC ABG pCO2 POC ABG pO2 ABG pO2 67.1 L ABG HCO3 19.4 L ABG O2 Saturation 91.4 L ABG Base Excess -6.7 L ABG Hemoglobin 9.9 L Oxyhemoglobin 89.4 L Sodium Potassium Chloride Carbon Dioxide BUN Creatinine Glucose POC Glucose 275 H 361 H Hemoglobin A1c Phosphorus Magnesium AST Alkaline Phosphatase Total Creatine Kinase CK-MB (CK-2) Albumin Urine Creatinine Urine Total Protein 03/30/19 03/30/19 03/30/19 20:00 20:28 23:27 RBC Hgb Hct MCV MCH RDW Lymph % (Auto) [place] % (Auto) Lymph # Seg Neutrophils % POC ABG pH ABG pH 7.293 L POC ABG pCO2 POC ABG pO2 ABG pO2 ABG HCO3 ABG O2 Saturation ABG Base Excess -5.9 L ABG Hemoglobin 11.0 L Oxyhemoglobin 94.1 L Sodium 134 L Potassium Chloride 92.9 L Carbon Dioxide 19 L BUN 93 H Creatinine 5.5 H Glucose 374 H POC Glucose 372 H Hemoglobin A1c Phosphorus Magnesium AST Alkaline Phosphatase Total Creatine Kinase CK-MB (CK-2) Albumin Urine Creatinine Urine Total Protein 03/31/19 03/31/19 03/31/19 04:39 04:39 05:27 RBC 3.08 L Hgb 10.3 L Hct 30.6 L MCV 99 H MCH 33 H RDW Lymph % (Auto) 6.5 L [place] % (Auto) Lymph # 0.3 L Seg Neutrophils % 86.6 H POC ABG pH ABG pH POC ABG pCO2 POC ABG pO2 ABG pO2 ABG HCO3 ABG O2 Saturation ABG Base Excess ABG Hemoglobin Oxyhemoglobin Sodium 135 L Potassium Chloride 92.7 L Carbon Dioxide BUN 92 H Creatinine 4.5 H Glucose 344 H POC Glucose 354 H Hemoglobin A1c Phosphorus Magnesium AST Alkaline Phosphatase Total Creatine Kinase CK-MB (CK-2) Albumin Urine Creatinine Urine Total Protein 03/31/19 03/31/19 03/31/19 08:03 12:08 17:08 RBC Hgb Hct MCV MCH RDW Lymph % (Auto) [place] % (Auto) Lymph # Seg Neutrophils % POC ABG pH ABG pH POC ABG pCO2 POC ABG pO2 ABG pO2 ABG HCO3 ABG O2 Saturation ABG Base Excess ABG Hemoglobin Oxyhemoglobin Sodium Potassium Chloride Carbon Dioxide BUN Creatinine Glucose POC Glucose 375 H 410 H 361 H Hemoglobin A1c Phosphorus Magnesium AST Alkaline Phosphatase Total Creatine Kinase CK-MB (CK-2) Albumin Urine Creatinine Urine Total Protein 03/31/19 04/01/19 04/01/19 23:12 05:22 08:28 RBC Hgb Hct MCV MCH RDW Lymph % (Auto) [place] % (Auto) Lymph # Seg Neutrophils % POC ABG pH ABG pH POC ABG pCO2 POC ABG pO2 ABG pO2 ABG HCO3 ABG O2 Saturation ABG Base Excess ABG Hemoglobin Oxyhemoglobin Sodium Potassium Chloride Carbon Dioxide BUN Creatinine Glucose POC Glucose 355 H 300 H 259 H Hemoglobin A1c Phosphorus Magnesium AST Alkaline Phosphatase Total Creatine Kinase CK-MB (CK-2) Albumin Urine Creatinine Urine Total Protein 04/01/19 04/01/19 04/01/19 11:35 16:18 23:27 RBC Hgb Hct MCV MCH RDW Lymph % (Auto) [place] % (Auto) Lymph # Seg Neutrophils % POC ABG pH ABG pH POC ABG pCO2 POC ABG pO2 ABG pO2 ABG HCO3 ABG O2 Saturation ABG Base Excess ABG Hemoglobin Oxyhemoglobin Sodium Potassium Chloride Carbon Dioxide BUN Creatinine Glucose POC Glucose 283 H 169 H 344 H Hemoglobin A1c Phosphorus Magnesium AST Alkaline Phosphatase Total Creatine Kinase CK-MB (CK-2) Albumin Urine Creatinine Urine Total Protein 04/02/19 04/02/19 04/02/19 02:39 03:09 05:11 RBC Hgb Hct MCV MCH RDW Lymph % (Auto) [place] % (Auto) Lymph # Seg Neutrophils % POC ABG pH 7.827 H ABG pH POC ABG pCO2 POC ABG pO2 157 H ABG pO2 ABG HCO3 ABG O2 Saturation ABG Base Excess ABG Hemoglobin Oxyhemoglobin Sodium 149 H D Potassium 3.3 L Chloride Carbon Dioxide 35 H D BUN 78 H Creatinine 2.2 H D Glucose 185 H POC Glucose 252 H Hemoglobin A1c Phosphorus Magnesium AST Alkaline Phosphatase Total Creatine Kinase CK-MB (CK-2) Albumin Urine Creatinine Urine Total Protein 04/02/19 04/02/19 04/02/19 05:31 08:28 11:46 RBC Hgb Hct MCV MCH RDW Lymph % (Auto) [place] % (Auto) Lymph # Seg Neutrophils % POC ABG pH ABG pH POC ABG pCO2 POC ABG pO2 ABG pO2 ABG HCO3 ABG O2 Saturation ABG Base Excess ABG Hemoglobin Oxyhemoglobin Sodium Potassium Chloride Carbon Dioxide BUN Creatinine Glucose POC Glucose 160 H 140 H 186 H Hemoglobin A1c Phosphorus Magnesium AST Alkaline Phosphatase Total Creatine Kinase CK-MB (CK-2) Albumin Urine Creatinine Urine Total Protein 04/02/19 04/02/19 04/03/19 14:45 20:59 00:23 RBC Hgb Hct MCV MCH RDW Lymph % (Auto) [place] % (Auto) Lymph # Seg Neutrophils % POC ABG pH ABG pH POC ABG pCO2 POC ABG pO2 ABG pO2 73.3 L ABG HCO3 34.3 H ABG O2 Saturation ABG Base Excess 8.7 H ABG Hemoglobin 11.1 L Oxyhemoglobin 93.5 L Sodium Potassium Chloride Carbon Dioxide BUN Creatinine Glucose POC Glucose 195 H 211 H Hemoglobin A1c Phosphorus Magnesium AST Alkaline Phosphatase Total Creatine Kinase CK-MB (CK-2) Albumin Urine Creatinine Urine Total Protein 04/03/19 04/03/19 04/03/19 05:48 05:48 06:00 RBC 3.46 L Hgb 11.5 L Hct 34.8 L MCV 101 H MCH 33 H RDW 15.5 H Lymph % (Auto) 13.2 L [place] % (Auto) 8.8 H Lymph # 0.8 L Seg Neutrophils % 77.8 H POC ABG pH ABG pH POC ABG pCO2 POC ABG pO2 ABG pO2 ABG HCO3 ABG O2 Saturation ABG Base Excess ABG Hemoglobin Oxyhemoglobin Sodium 152 H Potassium 3.1 L Chloride Carbon Dioxide 34 H BUN 71 H Creatinine 1.8 H Glucose 128 H POC Glucose 124 H Hemoglobin A1c Phosphorus Magnesium 2.50 H AST Alkaline Phosphatase Total Creatine Kinase CK-MB (CK-2) Albumin 3.6 L Urine Creatinine Urine Total Protein 04/03/19 12:42 RBC Hgb Hct MCV MCH RDW Lymph % (Auto) [place] % (Auto) Lymph # Seg Neutrophils % POC ABG pH ABG pH POC ABG pCO2 POC ABG pO2 ABG pO2 ABG HCO3 ABG O2 Saturation ABG Base Excess ABG Hemoglobin Oxyhemoglobin Sodium Potassium Chloride Carbon Dioxide BUN Creatinine Glucose POC Glucose 192 H Hemoglobin A1c Phosphorus Magnesium AST Alkaline Phosphatase Total Creatine Kinase CK-MB (CK-2) Albumin Urine Creatinine Urine Total Protein - Diagnostic Findings Additional findings: CT head with sinus disease, ventricles enlarged from previous Assessment and Plan This is a 58 YO M with encephalopathy, likely metabolic. Enlarged ventricles Recommend: Continue to correct electrolytes as you are doing EEG, MRI Brain if no contraindication ammonia level, TSH, B12 Continue care for all medical issues as you are doing
[2019-04-03] MEDS: NACL 0.45% 1000 ML 1,000 ML IV SCH (21:42)
[2019-04-03] MEDS: HALDOL IV PRN (21:45)
[2019-04-03] MEDS: D50W (25GM) Syringe IV PRN (23:20)
[2019-04-04] MEDS: CARDIZEM PO SCH ×5 (00:37→23:41)
[2019-04-04] MEDS: HumaLOG SUB-Q SCH ×7 (00:38→17:52)
[2019-04-04] MEDS: ATIVAN IV PRN ×4 (01:59→20:22)
[2019-04-04] MEDS: SOLU-Medrol IV SCH ×3 (05:18→20:22)
[2019-04-04] MEDS: TESSALON PERLES PO SCH ×4 (05:19→23:19)
[2019-04-04 05:55] LABS: Calcium 9.1 mg/dL (8.4-10.2)
[2019-04-04] MEDS: HALDOL IV PRN ×2 (06:03→11:31)
[2019-04-04] MEDS: DUONEB *Not for PRN Use IH SCH ×3 (07:55→20:36)
[2019-04-04] MEDS: NACL 0.45% 1000 ML 1,000 ML IV SCH (08:45)
[2019-04-04] MEDS ORDERED: NACL 0.45% 500 ML IV SCH (09:00)
[2019-04-04] MEDS: LOPRESSOR PO SCH ×3 (09:04→23:18)
[2019-04-04] MEDS: PEPCID PO SCH ×3 (09:04→23:19)
--- NOTE | 2019-04-04 09:04 | Progress Note ---
Assessment and Plan -afib with rvr and hypercoaguable state mgt per cardiology, rate control improved -Acute renal failure due to ATN nephrology following, improving -Hyperkalemia - was medically rx and improved -Hypernatremia IV half NS for now -Hypokalrmia supplemented Metabolic acidosis - sp bicarbonate drip, resolved -Acute and chronic respiratory failure secondary to COPD exacerbation cont steroids, nebs, and oxygen, cont bipap prn -Polysubstance abuse/etoh withdrawal -uds pos for amphetamines, per [place], no documented hx of amphetamine abuse -[facility] protocol for etoh abuse -Acute metabolic encephalopathy confused, restraints placed neurology consult likely due to etoh withdwaral -Type 2 diabetes mellitus with persistent hyperglycemia - Continue insulin coverage DVT prophylaxis - On heparin Subjective Date of service: 04/04/19 Principal diagnosis: Afib Interval history: Patient is a 58-year-old male that presents emergency room with complaints of shortness of breath. Admitted for Copd exacerbation Etoh dependence DT's and TEGAN and Hypernatremia Objective - Constitutional Vitals: Vital Signs - 12hr 04/03/19 04/03/19 04/03/19 21:43 22:25 22:30 Temperature Pulse Rate 86 103 H Pulse Rate [ Anterior Bilateral Throughout] Pulse Rate [ 86 Apical] Respiratory 22 22 Rate Respiratory Rate [Anterior Bilateral Throughout] Blood Pressure 161/82 O2 Sat by Pulse 93 93 Oximetry 04/03/19 04/03/19 04/04/19 23:16 23:21 00:37 Temperature 97.3 F L Pulse Rate 93 H 85 93 H Pulse Rate [ Anterior Bilateral Throughout] Pulse Rate [ Apical] Respiratory 18 18 Rate Respiratory Rate [Anterior Bilateral Throughout] Blood Pressure 137/79 128/72 137/79 O2 Sat by Pulse 94 96 Oximetry 04/04/19 04/04/19 04/04/19 03:53 04:55 05:02 Temperature 98.1 F Pulse Rate 90 Pulse Rate [ Anterior Bilateral Throughout] Pulse Rate [ Apical] Respiratory 16 Rate Respiratory Rate [Anterior Bilateral Throughout] Blood Pressure 153/91 O2 Sat by Pulse 89 93 93 Oximetry 04/04/19 04/04/19 05:19 07:56 Temperature Pulse Rate 90 Pulse Rate [ 89 Anterior Bilateral Throughout] Pulse Rate [ Apical] Respiratory Rate Respiratory 20 Rate [Anterior Bilateral Throughout] Blood Pressure 153/91 O2 Sat by Pulse Oximetry General appearance: Present: mild distress, well-nourished - EENT Eyes: PERRL, EOM intact ENT: hearing intact, clear oral mucosa Ears: bilateral: normal - Neck Neck: supple, normal ROM - Respiratory Respiratory effort: normal Respiratory: bilateral: CTA, rhonchi, wheezing - Breasts Breasts: normal - Cardiovascular Heart rate: 110 Rhythm: irregularly irregular Heart Sounds: Present: S1 & S2. Absent: gallop, rub Extremities: pulses intact, No edema, normal color, Full ROM - Gastrointestinal General gastrointestinal: Present: soft, non-tender, non-distended, normal bowel sounds - Genitourinary Male genitourinary: normal - Integumentary Integumentary: clear, warm, dry - Musculoskeletal Musculoskeletal: 1, strength equal bilaterally - Neurologic Neurologic: moves all extremities - Psychiatric Psychiatric: memory intact, agitated, depressed - Allied health notes Allied health notes reviewed: nursing, case management - Labs CBC & Chem 7: 04/03/19 05:48 04/04/19 04:23 Labs: Abnormal lab results 04/03/19 04/03/19 04/03/19 Range/Units 12:42 21:00 22:04 Sodium (137-145) mmol/L Potassium (3.6-5.0) mmol/L Chloride (98-107) mmol/L Carbon Dioxide (22-30) mmol/L BUN (9-20) mg/dL Creatinine (0.8-1.5) mg/dL POC Glucose 192 H 57 L (70-105) Vitamin B12 1568 H (211-911) pg/mL 04/03/19 04/04/19 04/04/19 Range/Units 23:21 00:42 04:23 Sodium 155 H (137-145) mmol/L Potassium 3.1 L (3.6-5.0) mmol/L Chloride 107.8 H (98-107) mmol/L Carbon Dioxide 34 H (22-30) mmol/L BUN 64 H (9-20) mg/dL Creatinine 1.9 H (0.8-1.5) mg/dL POC Glucose 69 L 63 L (70-105) Vitamin B12 (211-911) pg/mL
[2019-04-04] MEDS: ELIQUIS PO SCH ×3 (09:06→23:18)
[2019-04-04] MEDS: LANTUS SUB-Q SCH ×2 (09:06→23:41)
[2019-04-04] MEDS: SODIUM CHLORIDE FLUSH SYRINGE 10 ML IV SCH ×3 (09:08→23:21)
[2019-04-04] MEDS: PROzac PO SCH (09:09)
--- NOTE | 2019-04-04 09:34 | Progress Note ---
Assessment and Plan Acute Renal Failure secondary to Prerenal vs ATN from Hypotension, no obstruction: Hypernatremia Hyperkalemia, Resolved: Acidosis, Resolved: COPD: - stable Cr and BUN, good UOP - will switch IVF to D5W 100 cc/h and check Na Q12H, will also check urine osm -Renal US showed no hydronephrosis -CXR- showed no acute findings -Urine eosinophils negative -UA showed small blood, no significant rbc and urine studies showed no significant proteinuria -Obtain daily weights -Monitor I/O's, tello present -Avoid nephrotoxic agents -No acute indication for HD at this time -Will monitor renal function closely Odin Erazo MD [phone] Subjective Date of service: 04/04/19 Principal diagnosis: Afib Interval history: patient is confused, does not follow commands Objective - Vital Signs Vital signs: Vital Signs - 12hr 04/03/19 04/03/19 04/03/19 21:43 22:25 22:30 Temperature Pulse Rate 86 103 H Pulse Rate [ Anterior Bilateral Throughout] Pulse Rate [ 86 Apical] Respiratory 22 22 Rate Respiratory Rate [Anterior Bilateral Throughout] Blood Pressure 161/82 O2 Sat by Pulse 93 93 Oximetry 04/03/19 04/03/19 04/04/19 23:16 23:21 00:37 Temperature 97.3 F L Pulse Rate 93 H 85 93 H Pulse Rate [ Anterior Bilateral Throughout] Pulse Rate [ Apical] Respiratory 18 18 Rate Respiratory Rate [Anterior Bilateral Throughout] Blood Pressure 137/79 128/72 137/79 O2 Sat by Pulse 94 96 Oximetry 04/04/19 04/04/19 04/04/19 03:53 04:55 05:02 Temperature 98.1 F Pulse Rate 90 Pulse Rate [ Anterior Bilateral Throughout] Pulse Rate [ Apical] Respiratory 16 Rate Respiratory Rate [Anterior Bilateral Throughout] Blood Pressure 153/91 O2 Sat by Pulse 89 93 93 Oximetry 04/04/19 04/04/19 04/04/19 05:19 07:56 09:04 Temperature Pulse Rate 90 115 H Pulse Rate [ 89 Anterior Bilateral Throughout] Pulse Rate [ Apical] Respiratory Rate Respiratory 20 Rate [Anterior Bilateral Throughout] Blood Pressure 153/91 O2 Sat by Pulse Oximetry 04/04/19 09:13 Temperature Pulse Rate Pulse Rate [ Anterior Bilateral Throughout] Pulse Rate [ Apical] Respiratory Rate Respiratory Rate [Anterior Bilateral Throughout] Blood Pressure O2 Sat by Pulse 93 Oximetry - General Appearance General appearance: well-developed, well-nourished, obese EENT: ATNC, PERRL, mucous membranes dry Neck: no JVD, no carotid bruit Respiratory: Present: Clear to Ascultation Cardiology: irregular Gastrointestinal: normoactive bowel sounds Integumentary: no rash, warm and dry Neurologic: other (does not follow commands) Musculoskeletal: other (trace pitting edema in BLE) Psychiatric: other (does not answer questions) - Lab 04/03/19 05:48 04/04/19 04:23 Most recent lab results ABG pH 7.435 pH Units (7.350-7.450) 04/02/19 14:45 ABG pCO2 52.3 mm Hg 04/02/19 14:45 ABG pO2 73.3 mm Hg (80.0-90.0) L 04/02/19 14:45 ABG HCO3 34.3 mmol/L (20.0-26.0) H 04/02/19 14:45 ABG O2 Saturation 95.3 % (95.0-99.0) 04/02/19 14:45 Calcium 9.1 mg/dL (8.4-10.2) 04/04/19 04:23 Phosphorus 3.20 mg/dL (2.5-4.5) 04/03/19 05:48 Magnesium 2.50 mg/dL (1.7-2.3) H 04/03/19 05:48 227.1 mg/dL (0.1-20.0) H 03/30/19 10:00 230.8 mg/dL (0.1-20.0) H 03/30/19 10:00 22 mmol/L 03/30/19 10:00 31 mg/dL (5-11.8) H 03/30/19 10:00 32 mg/dL (5-11.8) H 03/30/19 10:00 Medications & Allergies - Medications Allergies/Adverse Reactions: Allergies No Known Allergies Allergy (Unverified 08/21/14 12:00) Home Medications: Home Medications Medication Instructions Recorded Confirmed Last Taken Type ALBUTEROL Inhaler (OR & NICU) 2 puff IH QID PRN 03/29/19 03/29/19 03/29/19 History [Proair] Apixaban [Eliquis] 5 mg PO BID 03/29/19 03/29/19 03/27/19 History AtorvaSTATin [Lipitor] 40 mg PO DAILY 03/29/19 03/29/19 03/27/19 History FLUoxetine HCL [Prozac] 10 mg PO QDAY 03/29/19 03/29/19 03/27/19 History Glimepiride [Amaryl] 2 mg PO BID 03/29/19 03/29/19 03/27/19 History Lisinopril [Zestril] 5 mg PO QDAY 03/29/19 03/29/19 03/27/19 History Metformin HCl [metFORMIN] 1,000 mg PO BID 03/29/19 03/29/19 03/29/19 History Pantoprazole [Protonix] 40 mg PO QDAY 03/29/19 03/29/19 03/27/19 History Tiotropium [place] [Spiriva 4 gm IH QDAY 03/29/19 03/29/19 Unknown History Respimat] Active Medications: Generic Name Dose Route Start Last Admin Trade Name Freq PRN Reason Stop Dose Admin Acetaminophen 650 mg 03/29/19 22:13 Tylenol PO Q4H PRN Pain MILD(1-3)/Fever >100.5/ARIAS Albuterol 2.5 mg 03/29/19 22:15 04/02/19 02:10 Proventil IH 2.5 mg Q4HRT PRN Administration Shortness Of Breath Albuterol/Ipratropium 1 ampul 03/31/19 14:00 04/04/19 07:55 Duoneb *Not For Prn Use* IH 1 ampul TIDRT RADHA Administration Apixaban 5 mg 03/31/19 02:00 04/04/19 09:06 Eliquis PO 5 mg BID RADHA Administration Protocol Atorvastatin Calcium 40 mg 03/31/19 10:00 04/04/19 09:04 Lipitor PO 40 mg DAILY RADHA Administration Benzonatate 100 mg 03/31/19 14:00 04/04/19 05:19 Tessalon Perles PO 100 mg Q8HR RADHA Administration Dextrose 50 ml 03/30/19 16:21 04/03/19 23:20 D50w (25gm) Syringe IV 50 ml PRN PRN Administration Hypoglycemia Diltiazem HCl 60 mg 04/01/19 13:28 04/04/19 05:19 Cardizem PO 60 mg Q6HR RADHA Administration Diltiazem HCl 15 mg 04/01/19 13:29 Cardizem IV PRN PRN HR >150 lasting >2 minutes Famotidine 10 mg 03/31/19 10:00 04/04/19 09:04 Pepcid PO 10 mg BID RADHA Administration Fluoxetine HCl 10 mg 03/31/19 02:00 04/04/19 09:09 Prozac PO 10 mg QDAY RADHA Administration Guaifenesin 5 ml 03/31/19 13:07 04/01/19 21:53 Guaifenesin Dm Syrup PO 5 ml Q6H PRN Administration Cough Haloperidol Lactate 2 mg 04/03/19 21:19 04/04/19 06:03 Haldol IV 2 mg Q4H PRN Administration Agitation Hydralazine HCl 10 mg 03/31/19 01:41 Apresoline IV Q4HR PRN Blood Pressure Hydromorphone HCl 0.25 mg 03/31/19 11:39 Dilaudid IV Q3H PRN Pain , Severe (7-10) Levofloxacin/Dextrose 500 mg in 100 mls @ 100 mls/hr 03/31/19 23:00 04/02/19 22:42 Levaquin 500mg/100ml IV 04/04/19 22:59 100 mls/hr Q48H RADHA Administration Dextrose 1,000 mls @ 100 mls/hr 04/04/19 10:00 D5w IV DIRECT [facility] Insulin Glargine 30 units 04/01/19 11:00 04/04/19 09:06 Lantus SUB-Q Not Given BID [facility] Insulin Human Lispro 0 unit 03/31/19 00:00 04/04/19 06:08 Humalog SUB-Q Not Given Q6HR [facility] Protocol Insulin Human Lispro 10 unit 04/01/19 07:30 04/04/19 08:50 Humalog SUB-Q Not Given AC [facility] Lorazepam 2 mg 03/31/19 11:35 04/03/19 20:01 Ativan IV 2 mg Q1HR PRN Administration CIWA-Ar 8-15 Lorazepam 4 mg 03/31/19 11:35 04/01/19 21:52 Ativan PO 4 mg Q1HR PRN Administration CIWA-Ar 16-25 Lorazepam 4 mg 03/31/19 11:35 04/04/19 09:03 Ativan IV 4 mg Q15MIN PRN Administration CIWA-Ar >25 Methylprednisolone Sodium Succinate 60 mg 03/30/19 13:00 04/04/19 05:18 Solu-Medrol IV 60 mg Q8H RADHA Administration Metoclopramide HCl 5 mg 03/29/19 22:13 03/30/19 20:54 Reglan IV 5 mg Q6H PRN Administration Nausea And Vomiting Metoprolol Tartrate 50 mg 04/03/19 12:00 04/04/19 09:04 Lopressor PO 50 mg BID RADHA Administration Ondansetron HCl 4 mg 03/29/19 22:13 Zofran IV Q8H PRN Nausea And Vomiting Potassium Chloride 40 meq 04/04/19 10:00 04/04/19 09:12 K-Dur PO 04/04/19 10:01 40 meq ONCE ONE Administration Sodium Chloride 10 ml 03/30/19 10:00 04/04/19 09:08 Sodium Chloride Flush Syringe 10 Ml IV 10 ml BID RADHA Administration Sodium Chloride 10 ml 03/29/19 22:13 Sodium Chloride Flush Syringe 10 Ml IV PRN PRN LINE FLUSH
[2019-04-04] MEDS ORDERED: K-DUR PO ONE (10:00)
--- NOTE | 2019-04-04 13:57 | Progress Note ---
Assessment and Plan 58 y/o obese male with altered mental status, concern for ETOH withdrawal on CIWA and untreated HUMA and COPD. 1. Will start to wean steroids tomorrow, please drop to 40q8 2. Continue scheduled duonebs but may need to increase the frequency. Will reassess again tomorrow 3. Blood pressure and Heart rate control 4. Weight loss 5. Will continue to follow. Subjective Date of service: 04/04/19 Principal diagnosis: Afib Interval history: No acute events. Sitting up on oxygen. Sats stable Objective Vital Signs - 12hr 04/04/19 04/04/19 04/04/19 03:53 04:55 05:02 Temperature 98.1 F Pulse Rate 90 Pulse Rate [ Anterior Bilateral Throughout] Respiratory 16 Rate Respiratory Rate [Abdomen] Respiratory Rate [Anterior Bilateral Throughout] Blood Pressure 153/91 O2 Sat by Pulse 89 93 93 Oximetry 04/04/19 04/04/19 04/04/19 05:19 07:56 08:17 Temperature 97.9 F Pulse Rate 90 102 H Pulse Rate [ 89 Anterior Bilateral Throughout] Respiratory 22 Rate Respiratory Rate [Abdomen] Respiratory 20 Rate [Anterior Bilateral Throughout] Blood Pressure 153/91 144/81 O2 Sat by Pulse 90 Oximetry 04/04/19 04/04/19 04/04/19 09:04 09:13 10:00 Temperature Pulse Rate 115 H 119 H Pulse Rate [ Anterior Bilateral Throughout] Respiratory Rate Respiratory 16 Rate [Abdomen] Respiratory Rate [Anterior Bilateral Throughout] Blood Pressure O2 Sat by Pulse 93 Oximetry Constitutional: no acute distress, other (obese) Eyes: non-icteric ENT: oropharynx moist Neck: supple Ascultation: Bilateral: clear, wheezes Percussion: Bilateral: not dull Cardiovascular: regular rate and rhythm Gastrointestinal: normoactive bowel sounds Integumentary: normal Extremities: no cyanosis Neurologic: non-focal exam Psychiatric: mood appropriate CBC and BMP: 04/03/19 05:48 04/04/19 04:23 ABG, PT/INR, D-dimer: ABG POC ABG pH 7.827 (7.35-7.45) H 04/02/19 03:09 ABG pH 7.435 pH Units (7.350-7.450) 04/02/19 14:45 ABG pCO2 52.3 mm Hg 04/02/19 14:45 POC ABG pO2 157 (80-105) H 04/02/19 03:09 ABG pO2 73.3 mm Hg (80.0-90.0) L 04/02/19 14:45 POC ABG HCO3 30.3 (22-26 mml/L) 04/02/19 03:09 POC ABG Total CO2 31 (23-27mmol/L) 04/02/19 03:09 POC ABG O2 Sat 100 04/02/19 03:09 ABG O2 Saturation 95.3 % (95.0-99.0) 04/02/19 14:45 Abnormal lab findings: Abnormal Labs 03/29/19 03/29/19 03/29/19 13:18 13:18 18:22 RBC 3.24 L Hgb 10.6 L Hct 33.2 L MCV 103 H MCH 33 H RDW 15.5 H Lymph % (Auto) 9.4 L [place] % (Auto) 7.8 H Lymph # 0.8 L Seg Neutrophils % 81.5 H POC ABG pH 7.122 L ABG pH POC ABG pCO2 45.4 H POC ABG pO2 ABG pO2 ABG HCO3 ABG O2 Saturation ABG Base Excess ABG Hemoglobin Oxyhemoglobin Sodium 132 L Potassium 6.6 H* Chloride 94.9 L Carbon Dioxide 14 L BUN 73 H Creatinine 8.6 H Glucose POC Glucose Hemoglobin A1c Phosphorus Magnesium AST 48 H Alkaline Phosphatase 136 H Total Creatine Kinase 2408 H CK-MB (CK-2) 17.6 H Albumin Vitamin B12 Urine Creatinine Urine Total Protein 03/29/19 03/30/19 03/30/19 23:37 05:58 10:00 RBC Hgb Hct MCV MCH RDW Lymph % (Auto) [place] % (Auto) Lymph # Seg Neutrophils % POC ABG pH 7.143 L ABG pH POC ABG pCO2 50.5 H POC ABG pO2 159 H ABG pO2 ABG HCO3 ABG O2 Saturation ABG Base Excess ABG Hemoglobin Oxyhemoglobin Sodium Potassium Chloride Carbon Dioxide BUN Creatinine Glucose POC Glucose Hemoglobin A1c 6.4 H Phosphorus Magnesium AST Alkaline Phosphatase Total Creatine Kinase CK-MB (CK-2) Albumin Vitamin B12 Urine Creatinine 227.1 H Urine Total Protein 31 H 03/30/19 03/30/19 03/30/19 10:00 10:12 10:12 RBC 3.17 L Hgb 10.5 L Hct 31.8 L MCV 100 H MCH 33 H RDW Lymph % (Auto) 8.1 L [place] % (Auto) Lymph # 0.5 L Seg Neutrophils % 88.0 H POC ABG pH ABG pH POC ABG pCO2 POC ABG pO2 ABG pO2 ABG HCO3 ABG O2 Saturation ABG Base Excess ABG Hemoglobin Oxyhemoglobin Sodium 132 L Potassium 6.6 H* Chloride 91.9 L Carbon Dioxide 19 L BUN 89 H Creatinine 7.2 H Glucose 302 H POC Glucose Hemoglobin A1c Phosphorus 7.50 H Magnesium AST Alkaline Phosphatase Total Creatine Kinase CK-MB (CK-2) Albumin Vitamin B12 Urine Creatinine 230.8 H Urine Total Protein 32 H 03/30/19 03/30/19 03/30/19 11:42 16:54 17:45 RBC Hgb Hct MCV MCH RDW Lymph % (Auto) [place] % (Auto) Lymph # Seg Neutrophils % POC ABG pH ABG pH 7.294 L POC ABG pCO2 POC ABG pO2 ABG pO2 67.1 L ABG HCO3 19.4 L ABG O2 Saturation 91.4 L ABG Base Excess -6.7 L ABG Hemoglobin 9.9 L Oxyhemoglobin 89.4 L Sodium Potassium Chloride Carbon Dioxide BUN Creatinine Glucose POC Glucose 275 H 361 H Hemoglobin A1c Phosphorus Magnesium AST Alkaline Phosphatase Total Creatine Kinase CK-MB (CK-2) Albumin Vitamin B12 Urine Creatinine Urine Total Protein 03/30/19 03/30/19 03/30/19 20:00 20:28 23:27 RBC Hgb Hct MCV MCH RDW Lymph % (Auto) [place] % (Auto) Lymph # Seg Neutrophils % POC ABG pH ABG pH 7.293 L POC ABG pCO2 POC ABG pO2 ABG pO2 ABG HCO3 ABG O2 Saturation ABG Base Excess -5.9 L ABG Hemoglobin 11.0 L Oxyhemoglobin 94.1 L Sodium 134 L Potassium Chloride 92.9 L Carbon Dioxide 19 L BUN 93 H Creatinine 5.5 H Glucose 374 H POC Glucose 372 H Hemoglobin A1c Phosphorus Magnesium AST Alkaline Phosphatase Total Creatine Kinase CK-MB (CK-2) Albumin Vitamin B12 Urine Creatinine Urine Total Protein 03/31/19 03/31/19 03/31/19 04:39 04:39 05:27 RBC 3.08 L Hgb 10.3 L Hct 30.6 L MCV 99 H MCH 33 H RDW Lymph % (Auto) 6.5 L [place] % (Auto) Lymph # 0.3 L Seg Neutrophils % 86.6 H POC ABG pH ABG pH POC ABG pCO2 POC ABG pO2 ABG pO2 ABG HCO3 ABG O2 Saturation ABG Base Excess ABG Hemoglobin Oxyhemoglobin Sodium 135 L Potassium Chloride 92.7 L Carbon Dioxide BUN 92 H Creatinine 4.5 H Glucose 344 H POC Glucose 354 H Hemoglobin A1c Phosphorus Magnesium AST Alkaline Phosphatase Total Creatine Kinase CK-MB (CK-2) Albumin Vitamin B12 Urine Creatinine Urine Total Protein 03/31/19 03/31/19 03/31/19 08:03 12:08 17:08 RBC Hgb Hct MCV MCH RDW Lymph % (Auto) [place] % (Auto) Lymph # Seg Neutrophils % POC ABG pH ABG pH POC ABG pCO2 POC ABG pO2 ABG pO2 ABG HCO3 ABG O2 Saturation ABG Base Excess ABG Hemoglobin Oxyhemoglobin Sodium Potassium Chloride Carbon Dioxide BUN Creatinine Glucose POC Glucose 375 H 410 H 361 H Hemoglobin A1c Phosphorus Magnesium AST Alkaline Phosphatase Total Creatine Kinase CK-MB (CK-2) Albumin Vitamin B12 Urine Creatinine Urine Total Protein 03/31/19 04/01/19 04/01/19 23:12 05:22 08:28 RBC Hgb Hct MCV MCH RDW Lymph % (Auto) [place] % (Auto) Lymph # Seg Neutrophils % POC ABG pH ABG pH POC ABG pCO2 POC ABG pO2 ABG pO2 ABG HCO3 ABG O2 Saturation ABG Base Excess ABG Hemoglobin Oxyhemoglobin Sodium Potassium Chloride Carbon Dioxide BUN Creatinine Glucose POC Glucose 355 H 300 H 259 H Hemoglobin A1c Phosphorus Magnesium AST Alkaline Phosphatase Total Creatine Kinase CK-MB (CK-2) Albumin Vitamin B12 Urine Creatinine Urine Total Protein 04/01/19 04/01/19 04/01/19 11:35 16:18 23:27 RBC Hgb Hct MCV MCH RDW Lymph % (Auto) [place] % (Auto) Lymph # Seg Neutrophils % POC ABG pH ABG pH POC ABG pCO2 POC ABG pO2 ABG pO2 ABG HCO3 ABG O2 Saturation ABG Base Excess ABG Hemoglobin Oxyhemoglobin Sodium Potassium Chloride Carbon Dioxide BUN Creatinine Glucose POC Glucose 283 H 169 H 344 H Hemoglobin A1c Phosphorus Magnesium AST Alkaline Phosphatase Total Creatine Kinase CK-MB (CK-2) Albumin Vitamin B12 Urine Creatinine Urine Total Protein 04/02/19 04/02/19 04/02/19 02:39 03:09 05:11 RBC Hgb Hct MCV MCH RDW Lymph % (Auto) [place] % (Auto) Lymph # Seg Neutrophils % POC ABG pH 7.827 H ABG pH POC ABG pCO2 POC ABG pO2 157 H ABG pO2 ABG HCO3 ABG O2 Saturation ABG Base Excess ABG Hemoglobin Oxyhemoglobin Sodium 149 H D Potassium 3.3 L Chloride Carbon Dioxide 35 H D BUN 78 H Creatinine 2.2 H D Glucose 185 H POC Glucose 252 H Hemoglobin A1c Phosphorus Magnesium AST Alkaline Phosphatase Total Creatine Kinase CK-MB (CK-2) Albumin Vitamin B12 Urine Creatinine Urine Total Protein 04/02/19 04/02/19 04/02/19 05:31 08:28 11:46 RBC Hgb Hct MCV MCH RDW Lymph % (Auto) [place] % (Auto) Lymph # Seg Neutrophils % POC ABG pH ABG pH POC ABG pCO2 POC ABG pO2 ABG pO2 ABG HCO3 ABG O2 Saturation ABG Base Excess ABG Hemoglobin Oxyhemoglobin Sodium Potassium Chloride Carbon Dioxide BUN Creatinine Glucose POC Glucose 160 H 140 H 186 H Hemoglobin A1c Phosphorus Magnesium AST Alkaline Phosphatase Total Creatine Kinase CK-MB (CK-2) Albumin Vitamin B12 Urine Creatinine Urine Total Protein 04/02/19 04/02/19 04/03/19 14:45 20:59 00:23 RBC Hgb Hct MCV MCH RDW Lymph % (Auto) [place] % (Auto) Lymph # Seg Neutrophils % POC ABG pH ABG pH POC ABG pCO2 POC ABG pO2 ABG pO2 73.3 L ABG HCO3 34.3 H ABG O2 Saturation ABG Base Excess 8.7 H ABG Hemoglobin 11.1 L Oxyhemoglobin 93.5 L Sodium Potassium Chloride Carbon Dioxide BUN Creatinine Glucose POC Glucose 195 H 211 H Hemoglobin A1c Phosphorus Magnesium AST Alkaline Phosphatase Total Creatine Kinase CK-MB (CK-2) Albumin Vitamin B12 Urine Creatinine Urine Total Protein 04/03/19 04/03/19 04/03/19 05:48 05:48 06:00 RBC 3.46 L Hgb 11.5 L Hct 34.8 L MCV 101 H MCH 33 H RDW 15.5 H Lymph % (Auto) 13.2 L [place] % (Auto) 8.8 H Lymph # 0.8 L Seg Neutrophils % 77.8 H POC ABG pH ABG pH POC ABG pCO2 POC ABG pO2 ABG pO2 ABG HCO3 ABG O2 Saturation ABG Base Excess ABG Hemoglobin Oxyhemoglobin Sodium 152 H Potassium 3.1 L Chloride Carbon Dioxide 34 H BUN 71 H Creatinine 1.8 H Glucose 128 H POC Glucose 124 H Hemoglobin A1c Phosphorus Magnesium 2.50 H AST Alkaline Phosphatase Total Creatine Kinase CK-MB (CK-2) Albumin 3.6 L Vitamin B12 Urine Creatinine Urine Total Protein 04/03/19 04/03/19 04/03/19 12:42 21:00 22:04 RBC Hgb Hct MCV MCH RDW Lymph % (Auto) [place] % (Auto) Lymph # Seg Neutrophils % POC ABG pH ABG pH POC ABG pCO2 POC ABG pO2 ABG pO2 ABG HCO3 ABG O2 Saturation ABG Base Excess ABG Hemoglobin Oxyhemoglobin Sodium Potassium Chloride Carbon Dioxide BUN Creatinine Glucose POC Glucose 192 H 57 L Hemoglobin A1c Phosphorus Magnesium AST Alkaline Phosphatase Total Creatine Kinase CK-MB (CK-2) Albumin Vitamin B12 1568 H Urine Creatinine Urine Total Protein 04/03/19 04/04/19 04/04/19 23:21 00:42 04:23 RBC Hgb Hct MCV MCH RDW Lymph % (Auto) [place] % (Auto) Lymph # Seg Neutrophils % POC ABG pH ABG pH POC ABG pCO2 POC ABG pO2 ABG pO2 ABG HCO3 ABG O2 Saturation ABG Base Excess ABG Hemoglobin Oxyhemoglobin Sodium 155 H Potassium 3.1 L Chloride 107.8 H Carbon Dioxide 34 H BUN 64 H Creatinine 1.9 H Glucose POC Glucose 69 L 63 L Hemoglobin A1c Phosphorus Magnesium AST Alkaline Phosphatase Total Creatine Kinase CK-MB (CK-2) Albumin Vitamin B12 Urine Creatinine Urine Total Protein 04/04/19 11:46 RBC Hgb Hct MCV MCH RDW Lymph % (Auto) [place] % (Auto) Lymph # Seg Neutrophils % POC ABG pH ABG pH POC ABG pCO2 POC ABG pO2 ABG pO2 ABG HCO3 ABG O2 Saturation ABG Base Excess ABG Hemoglobin Oxyhemoglobin Sodium Potassium Chloride Carbon Dioxide BUN Creatinine Glucose POC Glucose 111 H Hemoglobin A1c Phosphorus Magnesium AST Alkaline Phosphatase Total Creatine Kinase CK-MB (CK-2) Albumin Vitamin B12 Urine Creatinine Urine Total Protein
--- NOTE | 2019-04-04 14:46 | Event Note ---
Date: 03/29/19 Admitted for Metabolic encepalopathy See H/p in reports
[2019-04-04] MEDS: D5W 1,000 ML IV SCH (16:07)
[2019-04-05] MEDS: HumaLOG SUB-Q SCH ×7 (01:02→17:04)
[2019-04-05] MEDS: D5W 1,000 ML IV SCH ×3 (01:03→22:06)
[2019-04-05] MEDS: ATIVAN IV PRN ×5 (01:03→20:33)
[2019-04-05] MEDS: CARDIZEM PO SCH ×3 (05:04→18:25)
[2019-04-05] MEDS: TESSALON PERLES PO SCH ×3 (05:04→21:37)
[2019-04-05] MEDS: SOLU-Medrol IV SCH ×4 (05:05→21:37)
[2019-04-05] MEDS: DUONEB *Not for PRN Use IH SCH ×5 (09:38→23:20)
[2019-04-05] MEDS: LANTUS SUB-Q SCH ×2 (10:19→21:52)
[2019-04-05] MEDS: ELIQUIS PO SCH ×2 (10:22→21:37)
[2019-04-05] MEDS: LOPRESSOR PO SCH ×2 (10:22→21:38)
[2019-04-05] MEDS: PROzac PO SCH (10:22)
[2019-04-05] MEDS: PEPCID PO SCH ×2 (10:22→21:37)
[2019-04-05] MEDS: SODIUM CHLORIDE FLUSH SYRINGE 10 ML IV SCH ×2 (10:22→21:53)
--- NOTE | 2019-04-05 11:56 | Progress Note ---
Assessment and Plan Acute Renal Failure secondary to Prerenal vs ATN from Hypotension, no obstruction: Hyperkalemia, Resolved: Acidosis, Resolved: Hypernatremia: Hypokalemia: COPD: AMS: -Renal function reviewed. Serum creatinine 1.9 yesterday, no new BMP noted for today, non-oliguric -Ordered BMP level to be done now and tomorrow -Hypernatremia-On D5W@ 100 ml/hr, encourage free water intake -Hypokalemia- replete electrolytes as needed -AMS-Neurology consulted -Urine eosinophils negative -Renal US showed no hydronephrosis -Obtain daily weights -Monitor I/O's -Avoid nephrotoxic agents -No acute indication for HD at this time -Will continue to monitor renal function closely Subjective Date of service: 04/05/19 Principal diagnosis: Afib Interval history: Patient seen lying in bed. Restless. Sitter at bedside. No family present in room. Objective - Vital Signs Vital signs: Vital Signs - 12hr 04/05/19 04/05/19 04/05/19 03:45 04:46 06:10 Temperature 98.2 F Pulse Rate 94 H 102 H Pulse Rate [ Anterior Bilateral Throughout] Respiratory 19 18 Rate Respiratory Rate [Anterior Bilateral Throughout] Blood Pressure 157/107 113/97 Blood Pressure [Left] O2 Sat by Pulse 94 93 Oximetry 04/05/19 04/05/19 07:00 09:38 Temperature 98.4 F Pulse Rate 70 Pulse Rate [ 86 Anterior Bilateral Throughout] Respiratory 19 Rate Respiratory 20 Rate [Anterior Bilateral Throughout] Blood Pressure Blood Pressure 143/82 [Left] O2 Sat by Pulse Oximetry - General Appearance General appearance: well-developed, obese, fatigue, other (Restless) EENT: ATNC Neck: no JVD, supple Respiratory: Present: Decreased Breath Sounds Cardiology: S1S2, other (intact) Gastrointestinal: normoactive bowel sounds Integumentary: warm and dry Neurologic: alert and oriented x3 Musculoskeletal: other (mild edema to BLE) Psychiatric: agitated, other (altered mentation) - Lab 04/03/19 05:48 04/04/19 04:23 Most recent lab results ABG pH 7.435 pH Units (7.350-7.450) 04/02/19 14:45 ABG pCO2 52.3 mm Hg 04/02/19 14:45 ABG pO2 73.3 mm Hg (80.0-90.0) L 04/02/19 14:45 ABG HCO3 34.3 mmol/L (20.0-26.0) H 04/02/19 14:45 ABG O2 Saturation 95.3 % (95.0-99.0) 04/02/19 14:45 Calcium 9.1 mg/dL (8.4-10.2) 04/04/19 04:23 Phosphorus 3.20 mg/dL (2.5-4.5) 04/03/19 05:48 Magnesium 2.50 mg/dL (1.7-2.3) H 04/03/19 05:48 227.1 mg/dL (0.1-20.0) H 03/30/19 10:00 230.8 mg/dL (0.1-20.0) H 03/30/19 10:00 22 mmol/L 03/30/19 10:00 31 mg/dL (5-11.8) H 03/30/19 10:00 32 mg/dL (5-11.8) H 03/30/19 10:00 Medications & Allergies - Medications Allergies/Adverse Reactions: Allergies No Known Allergies Allergy (Unverified 08/21/14 12:00) Home Medications: Home Medications Medication Instructions Recorded Confirmed Last Taken Type ALBUTEROL Inhaler (OR & NICU) 2 puff IH QID PRN 03/29/19 03/29/19 03/29/19 History [Proair] Apixaban [Eliquis] 5 mg PO BID 03/29/19 03/29/19 03/27/19 History AtorvaSTATin [Lipitor] 40 mg PO DAILY 03/29/19 03/29/19 03/27/19 History FLUoxetine HCL [Prozac] 10 mg PO QDAY 03/29/19 03/29/19 03/27/19 History Glimepiride [Amaryl] 2 mg PO BID 03/29/19 03/29/19 03/27/19 History Lisinopril [Zestril] 5 mg PO QDAY 03/29/19 03/29/19 03/27/19 History Metformin HCl [metFORMIN] 1,000 mg PO BID 03/29/19 03/29/19 03/29/19 History Pantoprazole [Protonix] 40 mg PO QDAY 03/29/19 03/29/19 03/27/19 History Tiotropium [place] [Spiriva 4 gm IH QDAY 03/29/19 03/29/19 Unknown History Respimat] Active Medications: Generic Name Dose Route Start Last Admin Trade Name Freq PRN Reason Stop Dose Admin Acetaminophen 650 mg 03/29/19 22:13 Tylenol PO Q4H PRN Pain MILD(1-3)/Fever >100.5/ARIAS Albuterol 2.5 mg 03/29/19 22:15 04/02/19 02:10 Proventil IH 2.5 mg Q4HRT PRN Administration Shortness Of Breath Albuterol/Ipratropium 1 ampul 03/31/19 14:00 04/05/19 09:38 Duoneb *Not For Prn Use* IH 1 ampul TIDRT RADHA Administration Apixaban 5 mg 03/31/19 02:00 04/05/19 10:22 Eliquis PO 5 mg BID RADHA Administration Protocol Atorvastatin Calcium 40 mg 03/31/19 10:00 04/05/19 10:22 Lipitor PO 40 mg DAILY RADHA Administration Benzonatate 100 mg 03/31/19 14:00 04/05/19 05:04 Tessalon Perles PO 100 mg Q8HR RADHA Administration Dextrose 50 ml 03/30/19 16:21 04/03/19 23:20 D50w (25gm) Syringe IV 50 ml PRN PRN Administration Hypoglycemia Diltiazem HCl 60 mg 04/01/19 13:28 04/05/19 05:04 Cardizem PO 60 mg Q6HR RADHA Administration Diltiazem HCl 15 mg 04/01/19 13:29 Cardizem IV PRN PRN HR >150 lasting >2 minutes Famotidine 10 mg 03/31/19 10:00 04/05/19 10:22 Pepcid PO 10 mg BID RADHA Administration Fluoxetine HCl 10 mg 03/31/19 02:00 04/05/19 10:22 Prozac PO 10 mg QDAY RADHA Administration Guaifenesin 5 ml 03/31/19 13:07 04/01/19 21:53 Guaifenesin Dm Syrup PO 5 ml Q6H PRN Administration Cough Haloperidol Lactate 2 mg 04/03/19 21:19 04/04/19 11:31 Haldol IV 2 mg Q4H PRN Administration Agitation Hydralazine HCl 10 mg 03/31/19 01:41 Apresoline IV Q4HR PRN Blood Pressure Hydromorphone HCl 0.25 mg 03/31/19 11:39 Dilaudid IV Q3H PRN Pain , Severe (7-10) Dextrose 1,000 mls @ 100 mls/hr 04/04/19 10:00 04/05/19 01:03 D5w IV 100 mls/hr DIRECT RADHA Administration Insulin Glargine 30 units 04/01/19 11:00 04/05/19 10:19 Lantus SUB-Q 30 units BID RADHA Administration Insulin Human Lispro 0 unit 03/31/19 00:00 04/05/19 06:20 Humalog SUB-Q 4 unit Q6HR RADHA Administration Protocol Insulin Human Lispro 10 unit 04/01/19 07:30 04/05/19 07:30 Humalog SUB-Q 10 unit AC RADHA Administration Lorazepam 2 mg 03/31/19 11:35 04/05/19 05:05 Ativan IV 2 mg Q1HR PRN Administration CIWA-Ar 8-15 Lorazepam 4 mg 03/31/19 11:35 04/01/19 21:52 Ativan PO 4 mg Q1HR PRN Administration CIWA-Ar 16-25 Lorazepam 4 mg 03/31/19 11:35 04/04/19 09:03 Ativan IV 4 mg Q15MIN PRN Administration CIWA-Ar >25 Methylprednisolone Sodium Succinate 60 mg 03/30/19 13:00 04/05/19 05:05 Solu-Medrol IV 60 mg Q8H RADHA Administration Metoclopramide HCl 5 mg 03/29/19 22:13 03/30/19 20:54 Reglan IV 5 mg Q6H PRN Administration Nausea And Vomiting Metoprolol Tartrate 50 mg 04/03/19 12:00 04/05/19 10:22 Lopressor PO 50 mg BID RADHA Administration Ondansetron HCl 4 mg 03/29/19 22:13 Zofran IV Q8H PRN Nausea And Vomiting Sodium Chloride 10 ml 03/30/19 10:00 04/05/19 10:22 Sodium Chloride Flush Syringe 10 Ml IV 10 ml BID RADHA Administration Sodium Chloride 10 ml 03/29/19 22:13 Sodium Chloride Flush Syringe 10 Ml IV PRN PRN LINE FLUSH
[2019-04-05] MEDS ORDERED: SOLU-Medrol IV SCH (12:58)
--- NOTE | 2019-04-05 13:02 | Progress Note ---
Assessment and Plan 58 y/o obese male with altered mental status, concern for ETOH withdrawal on CIWA and untreated HUMA and COPD. 1. dropped steroids to 40q8, suggest weaning to 20q8 to start on Monday. Maybe adding to confusion. 2. Continue scheduled duonebs but may need to increase the frequency. will change to [id number]. 3. Blood pressure and Heart rate control 4. Weight loss 5. Will continue to follow. Subjective Date of service: 04/05/19 Principal diagnosis: Afib Interval history: No acute events. Still agitated and confused. Wore bipap last night, appears all night. On same amount of O2 but sats better today. Objective Vital Signs - 12hr 04/05/19 04/05/19 04/05/19 03:45 04:46 06:10 Temperature 98.2 F Pulse Rate 94 H 102 H Pulse Rate [ Anterior Bilateral Throughout] Respiratory 19 18 Rate Respiratory Rate [Anterior Bilateral Throughout] Blood Pressure 157/107 113/97 Blood Pressure [Left] O2 Sat by Pulse 94 93 Oximetry 04/05/19 04/05/19 04/05/19 07:00 09:38 10:00 Temperature 98.4 F Pulse Rate 70 Pulse Rate [ 89 Anterior Bilateral Throughout] Respiratory 19 Rate Respiratory 20 Rate [Anterior Bilateral Throughout] Blood Pressure Blood Pressure 143/82 [Left] O2 Sat by Pulse 95 Oximetry 04/05/19 12:22 Temperature Pulse Rate 98 H Pulse Rate [ Anterior Bilateral Throughout] Respiratory Rate Respiratory Rate [Anterior Bilateral Throughout] Blood Pressure Blood Pressure [Left] O2 Sat by Pulse Oximetry Constitutional: no acute distress, other (obese) Eyes: non-icteric ENT: oropharynx moist Neck: supple Ascultation: Bilateral: clear, wheezes Percussion: Bilateral: not dull Cardiovascular: regular rate and rhythm Gastrointestinal: normoactive bowel sounds Integumentary: normal Extremities: no cyanosis Neurologic: non-focal exam Psychiatric: mood appropriate CBC and BMP: 04/03/19 05:48 04/04/19 04:23 ABG, PT/INR, D-dimer: ABG POC ABG pH 7.827 (7.35-7.45) H 04/02/19 03:09 ABG pH 7.435 pH Units (7.350-7.450) 04/02/19 14:45 ABG pCO2 52.3 mm Hg 04/02/19 14:45 POC ABG pO2 157 (80-105) H 04/02/19 03:09 ABG pO2 73.3 mm Hg (80.0-90.0) L 04/02/19 14:45 POC ABG HCO3 30.3 (22-26 mml/L) 04/02/19 03:09 POC ABG Total CO2 31 (23-27mmol/L) 04/02/19 03:09 POC ABG O2 Sat 100 04/02/19 03:09 ABG O2 Saturation 95.3 % (95.0-99.0) 04/02/19 14:45 Abnormal lab findings: Abnormal Labs 03/29/19 03/29/19 03/29/19 13:18 13:18 18:22 RBC 3.24 L Hgb 10.6 L Hct 33.2 L MCV 103 H MCH 33 H RDW 15.5 H Lymph % (Auto) 9.4 L [place] % (Auto) 7.8 H Lymph # 0.8 L Seg Neutrophils % 81.5 H POC ABG pH 7.122 L ABG pH POC ABG pCO2 45.4 H POC ABG pO2 ABG pO2 ABG HCO3 ABG O2 Saturation ABG Base Excess ABG Hemoglobin Oxyhemoglobin Sodium 132 L Potassium 6.6 H* Chloride 94.9 L Carbon Dioxide 14 L BUN 73 H Creatinine 8.6 H Glucose POC Glucose Hemoglobin A1c Phosphorus Magnesium AST 48 H Alkaline Phosphatase 136 H Total Creatine Kinase 2408 H CK-MB (CK-2) 17.6 H Albumin Vitamin B12 Urine Creatinine Urine Total Protein 03/29/19 03/30/19 03/30/19 23:37 05:58 10:00 RBC Hgb Hct MCV MCH RDW Lymph % (Auto) [place] % (Auto) Lymph # Seg Neutrophils % POC ABG pH 7.143 L ABG pH POC ABG pCO2 50.5 H POC ABG pO2 159 H ABG pO2 ABG HCO3 ABG O2 Saturation ABG Base Excess ABG Hemoglobin Oxyhemoglobin Sodium Potassium Chloride Carbon Dioxide BUN Creatinine Glucose POC Glucose Hemoglobin A1c 6.4 H Phosphorus Magnesium AST Alkaline Phosphatase Total Creatine Kinase CK-MB (CK-2) Albumin Vitamin B12 Urine Creatinine 227.1 H Urine Total Protein 31 H 03/30/19 03/30/19 03/30/19 10:00 10:12 10:12 RBC 3.17 L Hgb 10.5 L Hct 31.8 L MCV 100 H MCH 33 H RDW Lymph % (Auto) 8.1 L [place] % (Auto) Lymph # 0.5 L Seg Neutrophils % 88.0 H POC ABG pH ABG pH POC ABG pCO2 POC ABG pO2 ABG pO2 ABG HCO3 ABG O2 Saturation ABG Base Excess ABG Hemoglobin Oxyhemoglobin Sodium 132 L Potassium 6.6 H* Chloride 91.9 L Carbon Dioxide 19 L BUN 89 H Creatinine 7.2 H Glucose 302 H POC Glucose Hemoglobin A1c Phosphorus 7.50 H Magnesium AST Alkaline Phosphatase Total Creatine Kinase CK-MB (CK-2) Albumin Vitamin B12 Urine Creatinine 230.8 H Urine Total Protein 32 H 03/30/19 03/30/19 03/30/19 11:42 16:54 17:45 RBC Hgb Hct MCV MCH RDW Lymph % (Auto) [place] % (Auto) Lymph # Seg Neutrophils % POC ABG pH ABG pH 7.294 L POC ABG pCO2 POC ABG pO2 ABG pO2 67.1 L ABG HCO3 19.4 L ABG O2 Saturation 91.4 L ABG Base Excess -6.7 L ABG Hemoglobin 9.9 L Oxyhemoglobin 89.4 L Sodium Potassium Chloride Carbon Dioxide BUN Creatinine Glucose POC Glucose 275 H 361 H Hemoglobin A1c Phosphorus Magnesium AST Alkaline Phosphatase Total Creatine Kinase CK-MB (CK-2) Albumin Vitamin B12 Urine Creatinine Urine Total Protein 03/30/19 03/30/19 03/30/19 20:00 20:28 23:27 RBC Hgb Hct MCV MCH RDW Lymph % (Auto) [place] % (Auto) Lymph # Seg Neutrophils % POC ABG pH ABG pH 7.293 L POC ABG pCO2 POC ABG pO2 ABG pO2 ABG HCO3 ABG O2 Saturation ABG Base Excess -5.9 L ABG Hemoglobin 11.0 L Oxyhemoglobin 94.1 L Sodium 134 L Potassium Chloride 92.9 L Carbon Dioxide 19 L BUN 93 H Creatinine 5.5 H Glucose 374 H POC Glucose 372 H Hemoglobin A1c Phosphorus Magnesium AST Alkaline Phosphatase Total Creatine Kinase CK-MB (CK-2) Albumin Vitamin B12 Urine Creatinine Urine Total Protein 03/31/19 03/31/19 03/31/19 04:39 04:39 05:27 RBC 3.08 L Hgb 10.3 L Hct 30.6 L MCV 99 H MCH 33 H RDW Lymph % (Auto) 6.5 L [place] % (Auto) Lymph # 0.3 L Seg Neutrophils % 86.6 H POC ABG pH ABG pH POC ABG pCO2 POC ABG pO2 ABG pO2 ABG HCO3 ABG O2 Saturation ABG Base Excess ABG Hemoglobin Oxyhemoglobin Sodium 135 L Potassium Chloride 92.7 L Carbon Dioxide BUN 92 H Creatinine 4.5 H Glucose 344 H POC Glucose 354 H Hemoglobin A1c Phosphorus Magnesium AST Alkaline Phosphatase Total Creatine Kinase CK-MB (CK-2) Albumin Vitamin B12 Urine Creatinine Urine Total Protein 03/31/19 03/31/19 03/31/19 08:03 12:08 17:08 RBC Hgb Hct MCV MCH RDW Lymph % (Auto) [place] % (Auto) Lymph # Seg Neutrophils % POC ABG pH ABG pH POC ABG pCO2 POC ABG pO2 ABG pO2 ABG HCO3 ABG O2 Saturation ABG Base Excess ABG Hemoglobin Oxyhemoglobin Sodium Potassium Chloride Carbon Dioxide BUN Creatinine Glucose POC Glucose 375 H 410 H 361 H Hemoglobin A1c Phosphorus Magnesium AST Alkaline Phosphatase Total Creatine Kinase CK-MB (CK-2) Albumin Vitamin B12 Urine Creatinine Urine Total Protein 03/31/19 04/01/19 04/01/19 23:12 05:22 08:28 RBC Hgb Hct MCV MCH RDW Lymph % (Auto) [place] % (Auto) Lymph # Seg Neutrophils % POC ABG pH ABG pH POC ABG pCO2 POC ABG pO2 ABG pO2 ABG HCO3 ABG O2 Saturation ABG Base Excess ABG Hemoglobin Oxyhemoglobin Sodium Potassium Chloride Carbon Dioxide BUN Creatinine Glucose POC Glucose 355 H 300 H 259 H Hemoglobin A1c Phosphorus Magnesium AST Alkaline Phosphatase Total Creatine Kinase CK-MB (CK-2) Albumin Vitamin B12 Urine Creatinine Urine Total Protein 04/01/19 04/01/19 04/01/19 11:35 16:18 23:27 RBC Hgb Hct MCV MCH RDW Lymph % (Auto) [place] % (Auto) Lymph # Seg Neutrophils % POC ABG pH ABG pH POC ABG pCO2 POC ABG pO2 ABG pO2 ABG HCO3 ABG O2 Saturation ABG Base Excess ABG Hemoglobin Oxyhemoglobin Sodium Potassium Chloride Carbon Dioxide BUN Creatinine Glucose POC Glucose 283 H 169 H 344 H Hemoglobin A1c Phosphorus Magnesium AST Alkaline Phosphatase Total Creatine Kinase CK-MB (CK-2) Albumin Vitamin B12 Urine Creatinine Urine Total Protein 04/02/19 04/02/19 04/02/19 02:39 03:09 05:11 RBC Hgb Hct MCV MCH RDW Lymph % (Auto) [place] % (Auto) Lymph # Seg Neutrophils % POC ABG pH 7.827 H ABG pH POC ABG pCO2 POC ABG pO2 157 H ABG pO2 ABG HCO3 ABG O2 Saturation ABG Base Excess ABG Hemoglobin Oxyhemoglobin Sodium 149 H D Potassium 3.3 L Chloride Carbon Dioxide 35 H D BUN 78 H Creatinine 2.2 H D Glucose 185 H POC Glucose 252 H Hemoglobin A1c Phosphorus Magnesium AST Alkaline Phosphatase Total Creatine Kinase CK-MB (CK-2) Albumin Vitamin B12 Urine Creatinine Urine Total Protein 04/02/19 04/02/19 04/02/19 05:31 08:28 11:46 RBC Hgb Hct MCV MCH RDW Lymph % (Auto) [place] % (Auto) Lymph # Seg Neutrophils % POC ABG pH ABG pH POC ABG pCO2 POC ABG pO2 ABG pO2 ABG HCO3 ABG O2 Saturation ABG Base Excess ABG Hemoglobin Oxyhemoglobin Sodium Potassium Chloride Carbon Dioxide BUN Creatinine Glucose POC Glucose 160 H 140 H 186 H Hemoglobin A1c Phosphorus Magnesium AST Alkaline Phosphatase Total Creatine Kinase CK-MB (CK-2) Albumin Vitamin B12 Urine Creatinine Urine Total Protein 04/02/19 04/02/19 04/03/19 14:45 20:59 00:23 RBC Hgb Hct MCV MCH RDW Lymph % (Auto) [place] % (Auto) Lymph # Seg Neutrophils % POC ABG pH ABG pH POC ABG pCO2 POC ABG pO2 ABG pO2 73.3 L ABG HCO3 34.3 H ABG O2 Saturation ABG Base Excess 8.7 H ABG Hemoglobin 11.1 L Oxyhemoglobin 93.5 L Sodium Potassium Chloride Carbon Dioxide BUN Creatinine Glucose POC Glucose 195 H 211 H Hemoglobin A1c Phosphorus Magnesium AST Alkaline Phosphatase Total Creatine Kinase CK-MB (CK-2) Albumin Vitamin B12 Urine Creatinine Urine Total Protein 04/03/19 04/03/19 04/03/19 05:48 05:48 06:00 RBC 3.46 L Hgb 11.5 L Hct 34.8 L MCV 101 H MCH 33 H RDW 15.5 H Lymph % (Auto) 13.2 L [place] % (Auto) 8.8 H Lymph # 0.8 L Seg Neutrophils % 77.8 H POC ABG pH ABG pH POC ABG pCO2 POC ABG pO2 ABG pO2 ABG HCO3 ABG O2 Saturation ABG Base Excess ABG Hemoglobin Oxyhemoglobin Sodium 152 H Potassium 3.1 L Chloride Carbon Dioxide 34 H BUN 71 H Creatinine 1.8 H Glucose 128 H POC Glucose 124 H Hemoglobin A1c Phosphorus Magnesium 2.50 H AST Alkaline Phosphatase Total Creatine Kinase CK-MB (CK-2) Albumin 3.6 L Vitamin B12 Urine Creatinine Urine Total Protein 04/03/19 04/03/19 04/03/19 12:42 21:00 22:04 RBC Hgb Hct MCV MCH RDW Lymph % (Auto) [place] % (Auto) Lymph # Seg Neutrophils % POC ABG pH ABG pH POC ABG pCO2 POC ABG pO2 ABG pO2 ABG HCO3 ABG O2 Saturation ABG Base Excess ABG Hemoglobin Oxyhemoglobin Sodium Potassium Chloride Carbon Dioxide BUN Creatinine Glucose POC Glucose 192 H 57 L Hemoglobin A1c Phosphorus Magnesium AST Alkaline Phosphatase Total Creatine Kinase CK-MB (CK-2) Albumin Vitamin B12 1568 H Urine Creatinine Urine Total Protein 04/03/19 04/04/19 04/04/19 23:21 00:42 04:23 RBC Hgb Hct MCV MCH RDW Lymph % (Auto) [place] % (Auto) Lymph # Seg Neutrophils % POC ABG pH ABG pH POC ABG pCO2 POC ABG pO2 ABG pO2 ABG HCO3 ABG O2 Saturation ABG Base Excess ABG Hemoglobin Oxyhemoglobin Sodium 155 H Potassium 3.1 L Chloride 107.8 H Carbon Dioxide 34 H BUN 64 H Creatinine 1.9 H Glucose POC Glucose 69 L 63 L Hemoglobin A1c Phosphorus Magnesium AST Alkaline Phosphatase Total Creatine Kinase CK-MB (CK-2) Albumin Vitamin B12 Urine Creatinine Urine Total Protein 04/04/19 04/04/19 04/04/19 11:46 16:31 22:12 RBC Hgb Hct MCV MCH RDW Lymph % (Auto) [place] % (Auto) Lymph # Seg Neutrophils % POC ABG pH ABG pH POC ABG pCO2 POC ABG pO2 ABG pO2 ABG HCO3 ABG O2 Saturation ABG Base Excess ABG Hemoglobin Oxyhemoglobin Sodium Potassium Chloride Carbon Dioxide BUN Creatinine Glucose POC Glucose 111 H 174 H 229 H Hemoglobin A1c Phosphorus Magnesium AST Alkaline Phosphatase Total Creatine Kinase CK-MB (CK-2) Albumin Vitamin B12 Urine Creatinine Urine Total Protein 04/05/19 04/05/19 04/05/19 05:08 07:46 11:27 RBC Hgb Hct MCV MCH RDW Lymph % (Auto) [place] % (Auto) Lymph # Seg Neutrophils % POC ABG pH ABG pH POC ABG pCO2 POC ABG pO2 ABG pO2 ABG HCO3 ABG O2 Saturation ABG Base Excess ABG Hemoglobin Oxyhemoglobin Sodium Potassium Chloride Carbon Dioxide BUN Creatinine Glucose POC Glucose 202 H 233 H 241 H Hemoglobin A1c Phosphorus Magnesium AST Alkaline Phosphatase Total Creatine Kinase CK-MB (CK-2) Albumin Vitamin B12 Urine Creatinine Urine Total Protein
[2019-04-05 13:35] LABS: Calcium 9.1 mg/dL (8.4-10.2)
--- NOTE | 2019-04-05 14:56 | Progress Note ---
Assessment and Plan -afib with rvr and hypercoaguable state mgt per cardiology, rate control improved -Acute renal failure due to ATN nephrology following, improving -Hyperkalemia - was medically rx and improved -Hypernatremia IV half NS for now -Hypokalrmia supplemented Metabolic acidosis - sp bicarbonate drip, resolved -Acute and chronic respiratory failure secondary to COPD exacerbation cont steroids, nebs, and oxygen, cont bipap prn -Polysubstance abuse/etoh withdrawal -uds pos for amphetamines, per [place], no documented hx of amphetamine abuse -[facility] protocol for etoh abuse Still agitated and anxious -Acute metabolic encephalopathy confused, restraints placed neurology consult likely due to etoh withdwaral -Type 2 diabetes mellitus with persistent hyperglycemia - Continue insulin coverage DVT prophylaxis - On heparin Subjective Date of service: 04/05/19 Principal diagnosis: Afib Interval history: Patient is a 58-year-old male that presents emergency room with complaints of shortness of breath. Admitted for Copd exacerbation Etoh dependence DT's and TEGAN and Hypernatremia Objective - Constitutional Vitals: Vital Signs - 12hr 04/05/19 04/05/19 04/05/19 03:45 04:46 06:10 Temperature 98.2 F Pulse Rate 94 H 102 H Pulse Rate [ Anterior Bilateral Throughout] Respiratory 19 18 Rate Respiratory Rate [Anterior Bilateral Throughout] Blood Pressure 157/107 113/97 Blood Pressure [Left] O2 Sat by Pulse 94 93 Oximetry 04/05/19 04/05/19 04/05/19 07:00 09:38 10:00 Temperature 98.4 F Pulse Rate 70 Pulse Rate [ 89 Anterior Bilateral Throughout] Respiratory 19 Rate Respiratory 20 Rate [Anterior Bilateral Throughout] Blood Pressure Blood Pressure 143/82 [Left] O2 Sat by Pulse 95 Oximetry 04/05/19 04/05/19 12:21 12:22 Temperature Pulse Rate 98 H Pulse Rate [ Anterior Bilateral Throughout] Respiratory Rate Respiratory Rate [Anterior Bilateral Throughout] Blood Pressure 134/81 Blood Pressure [Left] O2 Sat by Pulse Oximetry General appearance: Present: mild distress, well-nourished - EENT Eyes: PERRL, EOM intact ENT: hearing intact, clear oral mucosa Ears: bilateral: normal - Neck Neck: supple, normal ROM - Respiratory Respiratory effort: normal Respiratory: bilateral: CTA - Breasts Breasts: normal - Cardiovascular Heart rate: 110 Rhythm: irregularly irregular Heart Sounds: Present: S1 & S2. Absent: gallop, rub Extremities: no ischemia, pulses intact, No edema, normal color, Full ROM - Gastrointestinal General gastrointestinal: Present: soft, non-tender, non-distended, normal bowel sounds - Genitourinary Male genitourinary: normal - Integumentary Integumentary: clear, warm, dry - Musculoskeletal Musculoskeletal: 1, strength equal bilaterally - Neurologic Neurologic: moves all extremities - Psychiatric Psychiatric: memory intact, appropriate mood/affect, intact judgment & insight - Labs CBC & Chem 7: 04/03/19 05:48 04/05/19 12:58 Labs: Abnormal lab results 04/04/19 04/04/19 04/05/19 Range/Units 16:31 22:12 05:08 Sodium (137-145) mmol/L Carbon Dioxide (22-30) mmol/L BUN (9-20) mg/dL Creatinine (0.8-1.5) mg/dL Glucose (75-100) mg/dL POC Glucose 174 H 229 H 202 H (70-105) 04/05/19 04/05/19 04/05/19 Range/Units 07:46 11:27 12:58 Sodium 149 H (137-145) mmol/L Carbon Dioxide 31 H (22-30) mmol/L BUN 67 H (9-20) mg/dL Creatinine 1.9 H (0.8-1.5) mg/dL Glucose 230 H (75-100) mg/dL POC Glucose 233 H 241 H (70-105)
--- NOTE | 2019-04-05 16:19 | Progress Note ---
Assessment and Plan acute renal failure hyperkalemia improved copd exacerbation, sleep apnea hx htn,dm,atrial fib psvt AF with controlled V rate . Subjective Principal diagnosis: Afib Interval history: patient goes off to sleep while talking. using Bi Pap. Objective Vital Signs Temp Pulse Pulse Pulse Resp Resp BP 04/05/19 16:04 92 H 20 04/05/19 12:22 98 H 04/05/19 12:21 134/81 04/05/19 10:00 04/05/19 09:38 89 20 04/05/19 07:00 98.4 F 70 19 04/05/19 06:10 113/97 04/05/19 04:46 98.2 F 102 H 18 157/107 04/05/19 03:45 94 H 19 04/04/19 23:48 98.9 F 95 H 16 142/97 04/04/19 22:00 125 H 127 H 25 H 04/04/19 21:35 94 H 27 H 04/04/19 20:50 100 H 20 04/04/19 20:43 04/04/19 19:32 91 H 18 04/04/19 19:27 98.4 F 18 194/98 BP Pulse Ox 04/05/19 16:04 04/05/19 12:22 04/05/19 12:21 04/05/19 10:00 95 04/05/19 09:38 04/05/19 07:00 143/82 04/05/19 06:10 04/05/19 04:46 93 04/05/19 03:45 94 04/04/19 23:48 95 04/04/19 22:00 04/04/19 21:35 94 04/04/19 20:50 04/04/19 20:43 92 04/04/19 19:32 91 04/04/19 19:27 - Physical Examination General: Other (sleepy, confused) HEENT: Positive: PERRL, Normocephaly Neck: Positive: neck supple. Negative: JVD/HJR, Bruit Neuro: Positive: Other (confused) Abdomen: Positive: Soft. Negative: Tender Skin: Negative: Rash Musculoskeletal: Normal Range of Motion Extremities: Present: +1 Edema, Other (pedal pulse intact) - Labs and Meds Comprehensive Metabolic Panel 08/23/19 Range/Units 12:58 Sodium 149 H (137-145) mmol/L Potassium 3.7 (3.6-5.0) mmol/L Chloride 105.6 (98-107) mmol/L Carbon Dioxide 31 H (22-30) mmol/L BUN 67 H (9-20) mg/dL Creatinine 1.9 H (0.8-1.5) mg/dL Glucose 230 H (75-100) mg/dL Calcium 9.1 (8.4-10.2) mg/dL
[2019-04-05] MEDS: PULMICORT IH SCH (19:55)
[2019-04-05] MEDS: SODIUM CHLORIDE FLUSH SYRINGE 10 ML IV PRN (20:35)
[2019-04-06] MEDS: CARDIZEM PO SCH ×5 (00:08→23:29)
[2019-04-06] MEDS: ATIVAN IV PRN ×3 (00:08→15:22)
[2019-04-06] MEDS: HumaLOG SUB-Q SCH ×7 (00:09→18:51)
[2019-04-06] MEDS: SODIUM CHLORIDE FLUSH SYRINGE 10 ML IV PRN (00:11)
[2019-04-06] MEDS: ATIVAN PO PRN (04:23)
[2019-04-06] MEDS: DUONEB *Not for PRN Use IH SCH ×5 (04:49→21:23)
[2019-04-06] MEDS: SOLU-Medrol IV SCH ×3 (06:12→21:36)
[2019-04-06] MEDS: TESSALON PERLES PO SCH ×3 (06:15→21:36)
[2019-04-06] MEDS: TYLENOL PO PRN (06:20)
[2019-04-06] MEDS: PULMICORT IH SCH ×2 (07:40→21:30)
[2019-04-06 08:02] LABS: Calcium 8.7 mg/dL (8.4-10.2)
[2019-04-06] MEDS: D5W 1,000 ML IV SCH ×2 (08:26→18:42)
--- NOTE | 2019-04-06 09:10 | Progress Note ---
Assessment and Plan Acute Renal Failure secondary to Prerenal vs ATN from Hypotension, no obstruction: Hyperkalemia, Resolved: Acidosis, Resolved: Hypernatremia, Resolving: Hypokalemia, Resolved: COPD: AMS: -Renal function reviewed. Serum creatinine trend down to 1.7 today from 1.9 yesterday, BUN trend down to 56 from 79, non-oliguric -Hypernatremia-On D5W@ 100 ml/hr, encourage free water intake -AMS-Neurology consulted -Urine eosinophils negative -Renal US showed no hydronephrosis -Obtain daily weights -Monitor I/O's -Avoid nephrotoxic agents -No acute indication for HD at this time -Will continue to monitor renal function closely Subjective Date of service: 04/06/19 Principal diagnosis: Afib Interval history: Patient seen lying in bed. Remains Confused. States he is going swimming. Sitter at bedside. No family present in room. Objective - Vital Signs Vital signs: Vital Signs - 12hr 04/05/19 04/05/19 04/05/19 21:20 21:38 21:39 Temperature 98.5 F Pulse Rate 97 H 86 90 Pulse Rate [ Anterior Bilateral Throughout] Pulse Rate [ Apical] Respiratory 27 H 22 Rate Respiratory Rate [Abdomen] Respiratory Rate [Anterior Bilateral Throughout] Blood Pressure 149/86 149/86 O2 Sat by Pulse 93 92 Oximetry 04/05/19 04/05/19 04/06/19 22:00 23:27 00:05 Temperature 98.5 F Pulse Rate 80 101 H Pulse Rate [ 98 H Anterior Bilateral Throughout] Pulse Rate [ 96 H Apical] Respiratory 24 22 Rate Respiratory 22 Rate [Abdomen] Respiratory 25 H Rate [Anterior Bilateral Throughout] Blood Pressure 172/101 O2 Sat by Pulse 95 Oximetry 04/06/19 04/06/19 04/06/19 01:04 05:00 05:01 Temperature Pulse Rate 90 76 Pulse Rate [ 88 Anterior Bilateral Throughout] Pulse Rate [ Apical] Respiratory 17 19 Rate Respiratory Rate [Abdomen] Respiratory 19 Rate [Anterior Bilateral Throughout] Blood Pressure O2 Sat by Pulse 91 94 Oximetry 04/06/19 04/06/19 04/06/19 06:14 06:20 07:35 Temperature Pulse Rate 84 Pulse Rate [ 94 H Anterior Bilateral Throughout] Pulse Rate [ Apical] Respiratory 20 Rate Respiratory Rate [Abdomen] Respiratory 18 Rate [Anterior Bilateral Throughout] Blood Pressure 140/75 O2 Sat by Pulse Oximetry - General Appearance General appearance: obese, fatigue, other (Confused) EENT: ATNC Neck: no JVD Respiratory: Present: Decreased Breath Sounds Cardiology: S1S2 Gastrointestinal: normoactive bowel sounds, obese Integumentary: warm and dry Neurologic: other (Agited and confused) Musculoskeletal: other (Mild edema to BLE) Psychiatric: agitated - Lab 04/03/19 05:48 04/06/19 07:12 Most recent lab results ABG pH 7.435 pH Units (7.350-7.450) 04/02/19 14:45 ABG pCO2 52.3 mm Hg 04/02/19 14:45 ABG pO2 73.3 mm Hg (80.0-90.0) L 04/02/19 14:45 ABG HCO3 34.3 mmol/L (20.0-26.0) H 04/02/19 14:45 ABG O2 Saturation 95.3 % (95.0-99.0) 04/02/19 14:45 Calcium 8.7 mg/dL (8.4-10.2) 04/06/19 07:12 Phosphorus 3.20 mg/dL (2.5-4.5) 04/03/19 05:48 Magnesium 2.50 mg/dL (1.7-2.3) H 04/03/19 05:48 227.1 mg/dL (0.1-20.0) H 03/30/19 10:00 230.8 mg/dL (0.1-20.0) H 03/30/19 10:00 22 mmol/L 03/30/19 10:00 31 mg/dL (5-11.8) H 03/30/19 10:00 32 mg/dL (5-11.8) H 03/30/19 10:00 Medications & Allergies - Medications Allergies/Adverse Reactions: Allergies No Known Allergies Allergy (Unverified 08/21/14 12:00) Home Medications: Home Medications Medication Instructions Recorded Confirmed Last Taken Type ALBUTEROL Inhaler (OR & NICU) 2 puff IH QID PRN 03/29/19 03/29/19 03/29/19 History [Proair] Apixaban [Eliquis] 5 mg PO BID 03/29/19 03/29/19 03/27/19 History AtorvaSTATin [Lipitor] 40 mg PO DAILY 03/29/19 03/29/19 03/27/19 History FLUoxetine HCL [Prozac] 10 mg PO QDAY 03/29/19 03/29/19 03/27/19 History Glimepiride [Amaryl] 2 mg PO BID 03/29/19 03/29/19 03/27/19 History Lisinopril [Zestril] 5 mg PO QDAY 03/29/19 03/29/19 03/27/19 History Metformin HCl [metFORMIN] 1,000 mg PO BID 03/29/19 03/29/19 03/29/19 History Pantoprazole [Protonix] 40 mg PO QDAY 03/29/19 03/29/19 03/27/19 History Tiotropium [place] [Spiriva 4 gm IH QDAY 03/29/19 03/29/19 Unknown History Respimat] Active Medications: Generic Name Dose Route Start Last Admin Trade Name Freq PRN Reason Stop Dose Admin Acetaminophen 650 mg 03/29/19 22:13 04/06/19 06:20 Tylenol PO 650 mg Q4H PRN Administration Pain MILD(1-3)/Fever >100.5/ARIAS Albuterol 2.5 mg 03/29/19 22:15 04/02/19 02:10 Proventil IH 2.5 mg Q4HRT PRN Administration Shortness Of Breath Albuterol/Ipratropium 1 ampul 04/05/19 16:00 04/06/19 07:35 Duoneb *Not For Prn Use* IH 1 ampul Q4HRT RADHA Administration Apixaban 5 mg 03/31/19 02:00 04/05/19 21:37 Eliquis PO 5 mg BID RADHA Administration Protocol Atorvastatin Calcium 40 mg 03/31/19 10:00 04/05/19 10:22 Lipitor PO 40 mg DAILY RADHA Administration Benzonatate 100 mg 03/31/19 14:00 04/06/19 06:15 Tessalon Perles PO 100 mg Q8HR RADHA Administration Budesonide 0.5 mg 04/06/19 08:00 04/06/19 07:40 Pulmicort IH 0.5 mg Q12HRT RADHA Administration Dextrose 50 ml 03/30/19 16:21 04/03/19 23:20 D50w (25gm) Syringe IV 50 ml PRN PRN Administration Hypoglycemia Diltiazem HCl 60 mg 04/01/19 13:28 04/06/19 06:14 Cardizem PO 60 mg Q6HR RADHA Administration Diltiazem HCl 15 mg 04/01/19 13:29 Cardizem IV PRN PRN HR >150 lasting >2 minutes Famotidine 10 mg 03/31/19 10:00 04/05/19 21:37 Pepcid PO 10 mg BID RADHA Administration Fluoxetine HCl 10 mg 03/31/19 02:00 04/05/19 10:22 Prozac PO 10 mg QDAY RADHA Administration Guaifenesin 5 ml 03/31/19 13:07 04/01/19 21:53 Guaifenesin Dm Syrup PO 5 ml Q6H PRN Administration Cough Hydralazine HCl 10 mg 03/31/19 01:41 Apresoline IV Q4HR PRN Blood Pressure Hydromorphone HCl 0.25 mg 03/31/19 11:39 04/06/19 08:02 Dilaudid IV 0.25 mg Q3H PRN Administration Pain , Severe (7-10) Dextrose 1,000 mls @ 100 mls/hr 04/04/19 10:00 04/06/19 08:26 D5w IV 100 mls/hr DIRECT RADHA Administration Insulin Glargine 30 units 04/01/19 11:00 04/05/19 21:52 Lantus SUB-Q 30 units BID RADHA Administration Insulin Human Lispro 0 unit 03/31/19 00:00 04/06/19 06:13 Humalog SUB-Q 4 unit Q6HR RADHA Administration Protocol Insulin Human Lispro 10 unit 04/01/19 07:30 04/05/19 17:04 Humalog SUB-Q Not Given [facility] Lorazepam 2 mg 03/31/19 11:35 04/06/19 08:23 Ativan IV 2 mg Q1HR PRN Administration CIWA-Ar 8-15 Lorazepam 4 mg 03/31/19 11:35 04/06/19 04:23 Ativan PO 4 mg Q1HR PRN Administration CIWA-Ar 16-25 Lorazepam 4 mg 03/31/19 11:35 04/04/19 09:03 Ativan IV 4 mg Q15MIN PRN Administration CIWA-Ar >25 Methylprednisolone Sodium Succinate 40 mg 04/05/19 14:00 04/06/19 06:12 Solu-Medrol IV 40 mg Q8HR RADHA Administration Metoclopramide HCl 5 mg 03/29/19 22:13 03/30/19 20:54 Reglan IV 5 mg Q6H PRN Administration Nausea And Vomiting Metoprolol Tartrate 50 mg 04/03/19 12:00 04/05/19 21:38 Lopressor PO 50 mg BID RADHA Administration Ondansetron HCl 4 mg 03/29/19 22:13 Zofran IV Q8H PRN Nausea And Vomiting Sodium Chloride 10 ml 03/30/19 10:00 04/05/19 21:53 Sodium Chloride Flush Syringe 10 Ml IV 10 ml BID RADHA Administration Sodium Chloride 10 ml 03/29/19 22:13 04/06/19 00:11 Sodium Chloride Flush Syringe 10 Ml IV 10 ml PRN PRN Administration LINE FLUSH
[2019-04-06] MEDS: ELIQUIS PO SCH ×2 (10:58→21:36)
[2019-04-06] MEDS: SODIUM CHLORIDE FLUSH SYRINGE 10 ML IV SCH ×2 (10:58→21:35)
[2019-04-06] MEDS: PROzac PO SCH (10:58)
[2019-04-06] MEDS: LANTUS SUB-Q SCH ×2 (10:58→22:06)
[2019-04-06] MEDS: LOPRESSOR PO SCH ×2 (10:58→22:56)
[2019-04-06] MEDS: PEPCID PO SCH ×2 (10:58→21:36)
--- NOTE | 2019-04-06 11:05 | Progress Note ---
Assessment and Plan The patient remains in afib. He is mostly rate-controlled, but is tachycardic this morning. We will increase diltiazem to 90 mg every 6 hours. Continue Lopressor and Eliquis. The patient has been seen in conjunction with Dr. Lawton, who agrees with the assessment and plan. Subjective Date of service: 04/06/19 Principal diagnosis: Afib Interval history: Patient is lethargic in bed in no acute distress. He is tachycardic. Objective Last Vital Signs Temp 98.5 F 04/06/19 00:05 Pulse 94 H 04/06/19 07:35 Resp 18 04/06/19 07:35 BP 140/75 04/06/19 06:14 Pulse Ox 94 04/06/19 05:00 - Physical Examination General: No Apparent Distress, Other (sleepy, confused) HEENT: Positive: PERRL, Normocephaly Neck: Positive: neck supple. Negative: JVD/HJR, Bruit Cardiac: Positive: irregularly irregular Lungs: Positive: Decreased Breath Sounds Neuro: Positive: Other (confused) Abdomen: Positive: Soft. Negative: Tender /Rectal: Other (deferred) Skin: Positive: Clear. Negative: Rash Musculoskeletal: Normal Range of Motion Extremities: Present: +1 Edema, Other (pedal pulse intact) - Labs and Meds Comprehensive Metabolic Panel 04/05/19 04/06/19 Range/Units 12:58 07:12 Sodium 149 H 145 (137-145) mmol/L Potassium 3.7 3.9 (3.6-5.0) mmol/L Chloride 105.6 104.0 (98-107) mmol/L Carbon Dioxide 31 H 29 (22-30) mmol/L BUN 67 H 56 H (9-20) mg/dL Creatinine 1.9 H 1.7 H (0.8-1.5) mg/dL Glucose 230 H 233 H (75-100) mg/dL Calcium 9.1 8.7 (8.4-10.2) mg/dL - Imaging and Cardiology Echo: report reviewed (03/2019: EF 55-60%, abnormal left ventricular diastolic function ) - Telemetry EKG Rhythm: Atrial Fibrillation
--- NOTE | 2019-04-06 13:53 | Progress Note ---
Assessment and Plan -afib with rvr and hypercoaguable state mgt per cardiology, rate control improved -Acute renal failure due to ATN nephrology following, improving Cr down to 1.7 -Hyperkalemia - was medically rx and improved -Hypernatremia Improved Now normal -Hypokalrmia supplemented Metabolic acidosis - sp bicarbonate drip, resolved -Acute and chronic respiratory failure secondary to COPD exacerbation cont steroids, nebs, and oxygen, cont bipap prn -Polysubstance abuse/etoh withdrawal -uds pos for amphetamines, per [place], no documented hx of amphetamine abuse -[facility] protocol for etoh abuse Still agitated and anxious -Acute metabolic encephalopathy confused, restraints placed neurology consult likely due to etoh withdwaral -Type 2 diabetes mellitus with persistent hyperglycemia - Continue insulin coverage DVT prophylaxis - On heparin Subjective Date of service: 04/06/19 Principal diagnosis: Afib Interval history: Patient is a 58-year-old male that presents emergency room with complaints of shortness of breath. Admitted for Copd exacerbation Etoh dependence DT's and TEGAN and Hypernatremia. More alert and less agitated Objective - Constitutional Vitals: Vital Signs - 12hr 04/06/19 04/06/19 04/06/19 04:20 05:00 05:01 Temperature 99.3 F Pulse Rate 84 76 Pulse Rate [ 88 Anterior Bilateral Throughout] Pulse Rate [ Apical] Respiratory 22 19 Rate Respiratory 19 Rate [Anterior Bilateral Throughout] Blood Pressure 185/112 O2 Sat by Pulse 94 94 Oximetry 04/06/19 04/06/19 04/06/19 06:14 06:20 07:35 Temperature Pulse Rate 84 Pulse Rate [ 94 H Anterior Bilateral Throughout] Pulse Rate [ Apical] Respiratory 20 Rate Respiratory 18 Rate [Anterior Bilateral Throughout] Blood Pressure 140/75 O2 Sat by Pulse Oximetry 04/06/19 04/06/19 04/06/19 10:00 10:58 11:02 Temperature 99.1 F Pulse Rate 84 93 H Pulse Rate [ Anterior Bilateral Throughout] Pulse Rate [ 103 H Apical] Respiratory 20 Rate Respiratory Rate [Anterior Bilateral Throughout] Blood Pressure 148/75 148/75 O2 Sat by Pulse 97 84 Oximetry 04/06/19 04/06/19 11:19 13:10 Temperature Pulse Rate 84 Pulse Rate [ 98 H Anterior Bilateral Throughout] Pulse Rate [ Apical] Respiratory Rate Respiratory 18 Rate [Anterior Bilateral Throughout] Blood Pressure 148/75 O2 Sat by Pulse Oximetry General appearance: Present: no acute distress, well-nourished - EENT Eyes: PERRL, EOM intact ENT: hearing intact, clear oral mucosa Ears: bilateral: normal - Neck Neck: supple, normal ROM - Respiratory Respiratory effort: normal Respiratory: bilateral: CTA - Breasts Breasts: normal - Cardiovascular Heart rate: 88 Rhythm: irregularly irregular Heart Sounds: Present: S1 & S2. Absent: gallop, rub Extremities: no ischemia, pulses intact, No edema, normal color, Full ROM - Gastrointestinal General gastrointestinal: Present: soft, non-tender, non-distended, normal bowel sounds Rectal Exam: deferred - Genitourinary Male genitourinary: normal - Integumentary Integumentary: clear, warm, dry - Musculoskeletal Musculoskeletal: generalized weakness - Neurologic Neurologic: moves all extremities - Psychiatric Psychiatric: appropriate mood/affect, intact judgment & insight, memory intact, agitated, depressed - Allied health notes Allied health notes reviewed: nursing, case management - Labs CBC & Chem 7: 04/03/19 05:48 04/06/19 07:12 Labs: Abnormal lab results 04/05/19 04/05/19 04/06/19 Range/Units 16:15 21:56 05:25 BUN (9-20) mg/dL Creatinine (0.8-1.5) mg/dL Glucose (75-100) mg/dL POC Glucose 143 H 289 H 234 H (70-105) 04/06/19 04/06/19 Range/Units 07:12 07:52 BUN 56 H (9-20) mg/dL Creatinine 1.7 H (0.8-1.5) mg/dL Glucose 233 H (75-100) mg/dL POC Glucose 225 H (70-105)
--- NOTE | 2019-04-06 16:20 | Progress Note ---
Assessment and Plan Imp: 1. COPD exac. 2. Acute respiratory failure, hypoxia 3. Morbid obesity, probable OHS 4. TEGAN 5. Metabolic encephalopathy, ? due to DTs 6. HUMA, noncompliant with CPAP per [facility] notes Rec: 1. Taper Solumedrol due to confusion/agitation 2. Cont. Bronchodilators 3. IVFs 4. Obtain better history when mentation improves 5. D/c Dilaudid; avoid opioids 6. Further plans pending clinical course No family present Subjective Date of service: 04/06/19 Principal diagnosis: Afib Interval history: No events. Remains confused, agitated, in restraints. Cannot give me a coherent hx. Active Medications Acetaminophen (Tylenol) 650 mg PO Q4H PRN PRN Reason: Pain MILD(1-3)/Fever >100.5/ARIAS Last Admin: 04/06/19 06:20 Dose: 650 mg Documented by: Albuterol (Proventil) 2.5 mg IH Q4HRT PRN PRN Reason: Shortness Of Breath Last Admin: 04/02/19 02:10 Dose: 2.5 mg Documented by: Albuterol/Ipratropium (Duoneb *Not For Prn Use*) 1 ampul IH Q4HRT ON LICENSE OF [facility] Last Admin: 04/06/19 16:39 Dose: Not Given Documented by: Apixaban (Eliquis) 5 mg PO BID ON LICENSE OF [facility]; Protocol Last Admin: 04/06/19 10:58 Dose: 5 mg Documented by: Atorvastatin Calcium (Lipitor) 40 mg PO DAILY ON LICENSE OF [facility] Last Admin: 04/06/19 10:58 Dose: 40 mg Documented by: Benzonatate (Tessalon Perles) 100 mg PO Q8HR ON LICENSE OF [facility] Last Admin: 04/06/19 15:00 Dose: 100 mg Documented by: Budesonide (Pulmicort) 0.5 mg IH Q12HRT ON LICENSE OF [facility] Last Admin: 04/06/19 07:40 Dose: 0.5 mg Documented by: Dextrose (D50w (25gm) Syringe) 50 ml IV PRN PRN PRN Reason: Hypoglycemia Last Admin: 04/03/19 23:20 Dose: 50 ml Documented by: Diltiazem HCl (Cardizem) 15 mg IV PRN PRN PRN Reason: HR >150 lasting >2 minutes Diltiazem HCl (Cardizem) 90 mg PO Q6H ON LICENSE OF [facility] Last Admin: 04/06/19 17:46 Dose: 90 mg Documented by: Famotidine (Pepcid) 10 mg PO BID ON LICENSE OF [facility] Last Admin: 04/06/19 10:58 Dose: 10 mg Documented by: Fluoxetine HCl (Prozac) 10 mg PO QDAY ON LICENSE OF [facility] Last Admin: 04/06/19 10:58 Dose: 10 mg Documented by: Guaifenesin (Guaifenesin Dm Syrup) 5 ml PO Q6H PRN PRN Reason: Cough Last Admin: 04/01/19 21:53 Dose: 5 ml Documented by: Hydralazine HCl (Apresoline) 10 mg IV Q4HR PRN PRN Reason: Blood Pressure Dextrose (D5w) 1,000 mls @ 100 mls/hr IV DIRECT ON LICENSE OF [facility] Last Admin: 04/06/19 18:42 Dose: 100 mls/hr Documented by: Insulin Glargine (Lantus) 30 units SUB-Q BID ON LICENSE OF [facility] Last Admin: 04/06/19 10:58 Dose: 30 units Documented by: Insulin Human Lispro (Humalog) 0 unit SUB-Q Q6HR ON LICENSE OF [facility]; Protocol Last Admin: 04/06/19 18:51 Dose: Not Given Documented by: Insulin Human Lispro (Humalog) 10 unit SUB-Q AC ON LICENSE OF [facility] Last Admin: 04/06/19 17:50 Dose: 10 unit Documented by: Lorazepam (Ativan) 2 mg IV Q1HR PRN PRN Reason: CIWA-Ar 8-15 Last Admin: 04/06/19 08:23 Dose: 2 mg Documented by: Lorazepam (Ativan) 4 mg PO Q1HR PRN PRN Reason: CIWA-Ar 16-25 Last Admin: 04/06/19 04:23 Dose: 4 mg Documented by: Lorazepam (Ativan) 4 mg IV Q15MIN PRN PRN Reason: CIWA-Ar >25 Last Admin: 04/04/19 09:03 Dose: 4 mg Documented by: Methylprednisolone Sodium Succinate (Solu-Medrol) 20 mg IV Q8HR ON LICENSE OF [facility] Metoclopramide HCl (Reglan) 5 mg IV Q6H PRN PRN Reason: Nausea And Vomiting Last Admin: 03/30/19 20:54 Dose: 5 mg Documented by: Metoprolol Tartrate (Lopressor) 50 mg PO BID ON LICENSE OF [facility] Last Admin: 04/06/19 10:58 Dose: 50 mg Documented by: Ondansetron HCl (Zofran) 4 mg IV Q8H PRN PRN Reason: Nausea And Vomiting Sodium Chloride (Sodium Chloride Flush Syringe 10 Ml) 10 ml IV BID ON LICENSE OF [facility] Last Admin: 04/06/19 10:58 Dose: 10 ml Documented by: Sodium Chloride (Sodium Chloride Flush Syringe 10 Ml) 10 ml IV PRN PRN PRN Reason: LINE FLUSH Last Admin: 04/06/19 00:11 Dose: 10 ml Documented by: Objective Vital Signs - 12hr 04/06/19 04/06/19 04/06/19 05:00 05:01 06:14 Temperature Pulse Rate 76 84 Pulse Rate [ 88 Anterior Bilateral Throughout] Pulse Rate [ Apical] Respiratory 19 Rate Respiratory Rate [Abdomen] Respiratory 19 Rate [Anterior Bilateral Throughout] Blood Pressure 140/75 O2 Sat by Pulse 94 Oximetry 04/06/19 04/06/19 04/06/19 06:20 07:35 10:00 Temperature Pulse Rate 88 Pulse Rate [ 94 H Anterior Bilateral Throughout] Pulse Rate [ 103 H Apical] Respiratory 20 Rate Respiratory 22 Rate [Abdomen] Respiratory 18 Rate [Anterior Bilateral Throughout] Blood Pressure O2 Sat by Pulse 97 Oximetry 04/06/19 04/06/19 04/06/19 10:58 11:02 11:19 Temperature 99.1 F Pulse Rate 84 93 H 84 Pulse Rate [ Anterior Bilateral Throughout] Pulse Rate [ Apical] Respiratory 20 Rate Respiratory Rate [Abdomen] Respiratory Rate [Anterior Bilateral Throughout] Blood Pressure 148/75 148/75 148/75 O2 Sat by Pulse 84 Oximetry 04/06/19 13:10 Temperature Pulse Rate Pulse Rate [ 98 H Anterior Bilateral Throughout] Pulse Rate [ Apical] Respiratory Rate Respiratory Rate [Abdomen] Respiratory 18 Rate [Anterior Bilateral Throughout] Blood Pressure O2 Sat by Pulse Oximetry Constitutional: other (obese, confused, agitated) Eyes: non-icteric ENT: oropharynx moist Neck: supple Ascultation: Bilateral: diminished breath sounds Percussion: Bilateral: not dull Cardiovascular: irregular rhythm (ir/ir, no mrg) Gastrointestinal: normoactive bowel sounds Integumentary: normal Extremities: no cyanosis, no edema, pink and warm Neurologic: non-focal exam Psychiatric: other (unable to assess) CBC and BMP: 04/03/19 05:48 04/06/19 07:12 ABG, PT/INR, D-dimer: ABG POC ABG pH 7.827 (7.35-7.45) H 04/02/19 03:09 ABG pH 7.435 pH Units (7.350-7.450) 04/02/19 14:45 ABG pCO2 52.3 mm Hg 04/02/19 14:45 POC ABG pO2 157 (80-105) H 04/02/19 03:09 ABG pO2 73.3 mm Hg (80.0-90.0) L 04/02/19 14:45 POC ABG HCO3 30.3 (22-26 mml/L) 04/02/19 03:09 POC ABG Total CO2 31 (23-27mmol/L) 04/02/19 03:09 POC ABG O2 Sat 100 04/02/19 03:09 ABG O2 Saturation 95.3 % (95.0-99.0) 04/02/19 14:45 Abnormal lab findings: Abnormal Labs 03/29/19 03/29/19 03/29/19 13:18 13:18 18:22 RBC 3.24 L Hgb 10.6 L Hct 33.2 L MCV 103 H MCH 33 H RDW 15.5 H Lymph % (Auto) 9.4 L [place] % (Auto) 7.8 H Lymph # 0.8 L Seg Neutrophils % 81.5 H POC ABG pH 7.122 L ABG pH POC ABG pCO2 45.4 H POC ABG pO2 ABG pO2 ABG HCO3 ABG O2 Saturation ABG Base Excess ABG Hemoglobin Oxyhemoglobin Sodium 132 L Potassium 6.6 H* Chloride 94.9 L Carbon Dioxide 14 L BUN 73 H Creatinine 8.6 H Glucose POC Glucose Hemoglobin A1c Phosphorus Magnesium AST 48 H Alkaline Phosphatase 136 H Total Creatine Kinase 2408 H CK-MB (CK-2) 17.6 H Albumin Vitamin B12 Urine Creatinine Urine Total Protein 03/29/19 03/30/19 03/30/19 23:37 05:58 10:00 RBC Hgb Hct MCV MCH RDW Lymph % (Auto) [place] % (Auto) Lymph # Seg Neutrophils % POC ABG pH 7.143 L ABG pH POC ABG pCO2 50.5 H POC ABG pO2 159 H ABG pO2 ABG HCO3 ABG O2 Saturation ABG Base Excess ABG Hemoglobin Oxyhemoglobin Sodium Potassium Chloride Carbon Dioxide BUN Creatinine Glucose POC Glucose Hemoglobin A1c 6.4 H Phosphorus Magnesium AST Alkaline Phosphatase Total Creatine Kinase CK-MB (CK-2) Albumin Vitamin B12 Urine Creatinine 227.1 H Urine Total Protein 31 H 03/30/19 03/30/19 03/30/19 10:00 10:12 10:12 RBC 3.17 L Hgb 10.5 L Hct 31.8 L MCV 100 H MCH 33 H RDW Lymph % (Auto) 8.1 L [place] % (Auto) Lymph # 0.5 L Seg Neutrophils % 88.0 H POC ABG pH ABG pH POC ABG pCO2 POC ABG pO2 ABG pO2 ABG HCO3 ABG O2 Saturation ABG Base Excess ABG Hemoglobin Oxyhemoglobin Sodium 132 L Potassium 6.6 H* Chloride 91.9 L Carbon Dioxide 19 L BUN 89 H Creatinine 7.2 H Glucose 302 H POC Glucose Hemoglobin A1c Phosphorus 7.50 H Magnesium AST Alkaline Phosphatase Total Creatine Kinase CK-MB (CK-2) Albumin Vitamin B12 Urine Creatinine 230.8 H Urine Total Protein 32 H 03/30/19 03/30/19 03/30/19 11:42 16:54 17:45 RBC Hgb Hct MCV MCH RDW Lymph % (Auto) [place] % (Auto) Lymph # Seg Neutrophils % POC ABG pH ABG pH 7.294 L POC ABG pCO2 POC ABG pO2 ABG pO2 67.1 L ABG HCO3 19.4 L ABG O2 Saturation 91.4 L ABG Base Excess -6.7 L ABG Hemoglobin 9.9 L Oxyhemoglobin 89.4 L Sodium Potassium Chloride Carbon Dioxide BUN Creatinine Glucose POC Glucose 275 H 361 H Hemoglobin A1c Phosphorus Magnesium AST Alkaline Phosphatase Total Creatine Kinase CK-MB (CK-2) Albumin Vitamin B12 Urine Creatinine Urine Total Protein 03/30/19 03/30/19 03/30/19 20:00 20:28 23:27 RBC Hgb Hct MCV MCH RDW Lymph % (Auto) [place] % (Auto) Lymph # Seg Neutrophils % POC ABG pH ABG pH 7.293 L POC ABG pCO2 POC ABG pO2 ABG pO2 ABG HCO3 ABG O2 Saturation ABG Base Excess -5.9 L ABG Hemoglobin 11.0 L Oxyhemoglobin 94.1 L Sodium 134 L Potassium Chloride 92.9 L Carbon Dioxide 19 L BUN 93 H Creatinine 5.5 H Glucose 374 H POC Glucose 372 H Hemoglobin A1c Phosphorus Magnesium AST Alkaline Phosphatase Total Creatine Kinase CK-MB (CK-2) Albumin Vitamin B12 Urine Creatinine Urine Total Protein 03/31/19 03/31/19 03/31/19 04:39 04:39 05:27 RBC 3.08 L Hgb 10.3 L Hct 30.6 L MCV 99 H MCH 33 H RDW Lymph % (Auto) 6.5 L [place] % (Auto) Lymph # 0.3 L Seg Neutrophils % 86.6 H POC ABG pH ABG pH POC ABG pCO2 POC ABG pO2 ABG pO2 ABG HCO3 ABG O2 Saturation ABG Base Excess ABG Hemoglobin Oxyhemoglobin Sodium 135 L Potassium Chloride 92.7 L Carbon Dioxide BUN 92 H Creatinine 4.5 H Glucose 344 H POC Glucose 354 H Hemoglobin A1c Phosphorus Magnesium AST Alkaline Phosphatase Total Creatine Kinase CK-MB (CK-2) Albumin Vitamin B12 Urine Creatinine Urine Total Protein 03/31/19 03/31/19 03/31/19 08:03 12:08 17:08 RBC Hgb Hct MCV MCH RDW Lymph % (Auto) [place] % (Auto) Lymph # Seg Neutrophils % POC ABG pH ABG pH POC ABG pCO2 POC ABG pO2 ABG pO2 ABG HCO3 ABG O2 Saturation ABG Base Excess ABG Hemoglobin Oxyhemoglobin Sodium Potassium Chloride Carbon Dioxide BUN Creatinine Glucose POC Glucose 375 H 410 H 361 H Hemoglobin A1c Phosphorus Magnesium AST Alkaline Phosphatase Total Creatine Kinase CK-MB (CK-2) Albumin Vitamin B12 Urine Creatinine Urine Total Protein 03/31/19 04/01/19 04/01/19 23:12 05:22 08:28 RBC Hgb Hct MCV MCH RDW Lymph % (Auto) [place] % (Auto) Lymph # Seg Neutrophils % POC ABG pH ABG pH POC ABG pCO2 POC ABG pO2 ABG pO2 ABG HCO3 ABG O2 Saturation ABG Base Excess ABG Hemoglobin Oxyhemoglobin Sodium Potassium Chloride Carbon Dioxide BUN Creatinine Glucose POC Glucose 355 H 300 H 259 H Hemoglobin A1c Phosphorus Magnesium AST Alkaline Phosphatase Total Creatine Kinase CK-MB (CK-2) Albumin Vitamin B12 Urine Creatinine Urine Total Protein 04/01/19 04/01/19 04/01/19 11:35 16:18 23:27 RBC Hgb Hct MCV MCH RDW Lymph % (Auto) [place] % (Auto) Lymph # Seg Neutrophils % POC ABG pH ABG pH POC ABG pCO2 POC ABG pO2 ABG pO2 ABG HCO3 ABG O2 Saturation ABG Base Excess ABG Hemoglobin Oxyhemoglobin Sodium Potassium Chloride Carbon Dioxide BUN Creatinine Glucose POC Glucose 283 H 169 H 344 H Hemoglobin A1c Phosphorus Magnesium AST Alkaline Phosphatase Total Creatine Kinase CK-MB (CK-2) Albumin Vitamin B12 Urine Creatinine Urine Total Protein 04/02/19 04/02/19 04/02/19 02:39 03:09 05:11 RBC Hgb Hct MCV MCH RDW Lymph % (Auto) [place] % (Auto) Lymph # Seg Neutrophils % POC ABG pH 7.827 H ABG pH POC ABG pCO2 POC ABG pO2 157 H ABG pO2 ABG HCO3 ABG O2 Saturation ABG Base Excess ABG Hemoglobin Oxyhemoglobin Sodium 149 H D Potassium 3.3 L Chloride Carbon Dioxide 35 H D BUN 78 H Creatinine 2.2 H D Glucose 185 H POC Glucose 252 H Hemoglobin A1c Phosphorus Magnesium AST Alkaline Phosphatase Total Creatine Kinase CK-MB (CK-2) Albumin Vitamin B12 Urine Creatinine Urine Total Protein 04/02/19 04/02/19 04/02/19 05:31 08:28 11:46 RBC Hgb Hct MCV MCH RDW Lymph % (Auto) [place] % (Auto) Lymph # Seg Neutrophils % POC ABG pH ABG pH POC ABG pCO2 POC ABG pO2 ABG pO2 ABG HCO3 ABG O2 Saturation ABG Base Excess ABG Hemoglobin Oxyhemoglobin Sodium Potassium Chloride Carbon Dioxide BUN Creatinine Glucose POC Glucose 160 H 140 H 186 H Hemoglobin A1c Phosphorus Magnesium AST Alkaline Phosphatase Total Creatine Kinase CK-MB (CK-2) Albumin Vitamin B12 Urine Creatinine Urine Total Protein 04/02/19 04/02/19 04/03/19 14:45 20:59 00:23 RBC Hgb Hct MCV MCH RDW Lymph % (Auto) [place] % (Auto) Lymph # Seg Neutrophils % POC ABG pH ABG pH POC ABG pCO2 POC ABG pO2 ABG pO2 73.3 L ABG HCO3 34.3 H ABG O2 Saturation ABG Base Excess 8.7 H ABG Hemoglobin 11.1 L Oxyhemoglobin 93.5 L Sodium Potassium Chloride Carbon Dioxide BUN Creatinine Glucose POC Glucose 195 H 211 H Hemoglobin A1c Phosphorus Magnesium AST Alkaline Phosphatase Total Creatine Kinase CK-MB (CK-2) Albumin Vitamin B12 Urine Creatinine Urine Total Protein 08/21/19 08/21/19 08/21/19 05:48 05:48 06:00 RBC 3.46 L Hgb 11.5 L Hct 34.8 L MCV 101 H MCH 33 H RDW 15.5 H Lymph % (Auto) 13.2 L [place] % (Auto) 8.8 H Lymph # 0.8 L Seg Neutrophils % 77.8 H POC ABG pH ABG pH POC ABG pCO2 POC ABG pO2 ABG pO2 ABG HCO3 ABG O2 Saturation ABG Base Excess ABG Hemoglobin Oxyhemoglobin Sodium 152 H Potassium 3.1 L Chloride Carbon Dioxide 34 H BUN 71 H Creatinine 1.8 H Glucose 128 H POC Glucose 124 H Hemoglobin A1c Phosphorus Magnesium 2.50 H AST Alkaline Phosphatase Total Creatine Kinase CK-MB (CK-2) Albumin 3.6 L Vitamin B12 Urine Creatinine Urine Total Protein 04/03/19 04/03/19 04/03/19 12:42 21:00 22:04 RBC Hgb Hct MCV MCH RDW Lymph % (Auto) [place] % (Auto) Lymph # Seg Neutrophils % POC ABG pH ABG pH POC ABG pCO2 POC ABG pO2 ABG pO2 ABG HCO3 ABG O2 Saturation ABG Base Excess ABG Hemoglobin Oxyhemoglobin Sodium Potassium Chloride Carbon Dioxide BUN Creatinine Glucose POC Glucose 192 H 57 L Hemoglobin A1c Phosphorus Magnesium AST Alkaline Phosphatase Total Creatine Kinase CK-MB (CK-2) Albumin Vitamin B12 1568 H Urine Creatinine Urine Total Protein 04/03/19 04/04/19 04/04/19 23:21 00:42 04:23 RBC Hgb Hct MCV MCH RDW Lymph % (Auto) [place] % (Auto) Lymph # Seg Neutrophils % POC ABG pH ABG pH POC ABG pCO2 POC ABG pO2 ABG pO2 ABG HCO3 ABG O2 Saturation ABG Base Excess ABG Hemoglobin Oxyhemoglobin Sodium 155 H Potassium 3.1 L Chloride 107.8 H Carbon Dioxide 34 H BUN 64 H Creatinine 1.9 H Glucose POC Glucose 69 L 63 L Hemoglobin A1c Phosphorus Magnesium AST Alkaline Phosphatase Total Creatine Kinase CK-MB (CK-2) Albumin Vitamin B12 Urine Creatinine Urine Total Protein 04/04/19 04/04/19 04/04/19 11:46 16:31 22:12 RBC Hgb Hct MCV MCH RDW Lymph % (Auto) [place] % (Auto) Lymph # Seg Neutrophils % POC ABG pH ABG pH POC ABG pCO2 POC ABG pO2 ABG pO2 ABG HCO3 ABG O2 Saturation ABG Base Excess ABG Hemoglobin Oxyhemoglobin Sodium Potassium Chloride Carbon Dioxide BUN Creatinine Glucose POC Glucose 111 H 174 H 229 H Hemoglobin A1c Phosphorus Magnesium AST Alkaline Phosphatase Total Creatine Kinase CK-MB (CK-2) Albumin Vitamin B12 Urine Creatinine Urine Total Protein 04/05/19 04/05/19 04/05/19 05:08 07:46 11:27 RBC Hgb Hct MCV MCH RDW Lymph % (Auto) [place] % (Auto) Lymph # Seg Neutrophils % POC ABG pH ABG pH POC ABG pCO2 POC ABG pO2 ABG pO2 ABG HCO3 ABG O2 Saturation ABG Base Excess ABG Hemoglobin Oxyhemoglobin Sodium Potassium Chloride Carbon Dioxide BUN Creatinine Glucose POC Glucose 202 H 233 H 241 H Hemoglobin A1c Phosphorus Magnesium AST Alkaline Phosphatase Total Creatine Kinase CK-MB (CK-2) Albumin Vitamin B12 Urine Creatinine Urine Total Protein 04/05/19 04/05/19 04/05/19 12:58 16:15 21:56 RBC Hgb Hct MCV MCH RDW Lymph % (Auto) [place] % (Auto) Lymph # Seg Neutrophils % POC ABG pH ABG pH POC ABG pCO2 POC ABG pO2 ABG pO2 ABG HCO3 ABG O2 Saturation ABG Base Excess ABG Hemoglobin Oxyhemoglobin Sodium 149 H Potassium Chloride Carbon Dioxide 31 H BUN 67 H Creatinine 1.9 H Glucose 230 H POC Glucose 143 H 289 H Hemoglobin A1c Phosphorus Magnesium AST Alkaline Phosphatase Total Creatine Kinase CK-MB (CK-2) Albumin Vitamin B12 Urine Creatinine Urine Total Protein 04/06/19 04/06/19 04/06/19 05:25 07:12 07:52 RBC Hgb Hct MCV MCH RDW Lymph % (Auto) [place] % (Auto) Lymph # Seg Neutrophils % POC ABG pH ABG pH POC ABG pCO2 POC ABG pO2 ABG pO2 ABG HCO3 ABG O2 Saturation ABG Base Excess ABG Hemoglobin Oxyhemoglobin Sodium Potassium Chloride Carbon Dioxide BUN 56 H Creatinine 1.7 H Glucose 233 H POC Glucose 234 H 225 H Hemoglobin A1c Phosphorus Magnesium AST Alkaline Phosphatase Total Creatine Kinase CK-MB (CK-2) Albumin Vitamin B12 Urine Creatinine Urine Total Protein 04/06/19 12:12 RBC Hgb Hct MCV MCH RDW Lymph % (Auto) [place] % (Auto) Lymph # Seg Neutrophils % POC ABG pH ABG pH POC ABG pCO2 POC ABG pO2 ABG pO2 ABG HCO3 ABG O2 Saturation ABG Base Excess ABG Hemoglobin Oxyhemoglobin Sodium Potassium Chloride Carbon Dioxide BUN Creatinine Glucose POC Glucose 275 H Hemoglobin A1c Phosphorus Magnesium AST Alkaline Phosphatase Total Creatine Kinase CK-MB (CK-2) Albumin Vitamin B12 Urine Creatinine Urine Total Protein Chest x-ray: report reviewed, image reviewed
[2019-04-07] MEDS: DUONEB *Not for PRN Use IH SCH ×6 (00:23→20:57)
[2019-04-07] MEDS: HumaLOG SUB-Q SCH ×8 (01:15→18:34)
[2019-04-07] MEDS: ATIVAN IV PRN (01:36)
[2019-04-07] MEDS: D5W 1,000 ML IV SCH (04:56)
[2019-04-07] MEDS: CARDIZEM PO SCH ×3 (05:55→17:19)
[2019-04-07] MEDS: PULMICORT IH SCH ×2 (08:05→20:56)
--- NOTE | 2019-04-07 09:28 | Progress Note ---
Assessment and Plan Acute Renal Failure secondary to Prerenal vs ATN from Hypotension, no obstruction: Hyperkalemia, Resolved: Acidosis, Resolved: Hypernatremia, Resolving: Hypokalemia, Resolved: COPD: AMS: -No new labs resulted at time of rounds today. Serum creatinine trend down to 1.7 yesterday from 1.9, BUN trend down to 56 yesterday from 79, non-oliguric -Hypernatremia-On D5W@ 100 ml/hr, encourage free water intake, sodium level was improving at 145 yesterday -AMS-Neurology consulted -Urine eosinophils negative -Renal US showed no hydronephrosis -Obtain daily weights -Monitor I/O's -Avoid nephrotoxic agents -No acute indication for HD at this time -Will continue to monitor renal function closely Subjective Date of service: 04/07/19 Principal diagnosis: Afib Interval history: Patient seen lying in bed, confused. Brother at bedside. Objective - Vital Signs Vital signs: Vital Signs - 12hr 04/06/19 04/06/19 04/06/19 21:31 22:00 22:25 Temperature 99.0 F Pulse Rate 91 H Pulse Rate [ 90 Anterior Bilateral Throughout] Pulse Rate [ 91 H Apical] Respiratory 22 22 Rate Respiratory 16 Rate [Anterior Bilateral Throughout] Blood Pressure 142/76 Blood Pressure [Left] O2 Sat by Pulse 93 89 Oximetry 04/06/19 04/06/19 04/07/19 22:56 23:29 00:23 Temperature Pulse Rate 91 H 91 H 84 Pulse Rate [ 80 Anterior Bilateral Throughout] Pulse Rate [ Apical] Respiratory 21 Rate Respiratory 21 Rate [Anterior Bilateral Throughout] Blood Pressure 142/76 142/76 Blood Pressure [Left] O2 Sat by Pulse 94 Oximetry 04/07/19 04/07/19 04/07/19 01:00 03:07 05:05 Temperature 98.8 F Pulse Rate 93 H Pulse Rate [ 88 Anterior Bilateral Throughout] Pulse Rate [ Apical] Respiratory 19 Rate Respiratory 22 Rate [Anterior Bilateral Throughout] Blood Pressure 125/79 Blood Pressure 140/81 [Left] O2 Sat by Pulse Oximetry 04/07/19 04/07/19 04/07/19 05:55 05:57 08:00 Temperature 98.0 F Pulse Rate 88 88 Pulse Rate [ 87 Anterior Bilateral Throughout] Pulse Rate [ Apical] Respiratory 20 Rate Respiratory 20 Rate [Anterior Bilateral Throughout] Blood Pressure 125/79 135/75 Blood Pressure [Left] O2 Sat by Pulse 95 Oximetry 04/07/19 08:05 Temperature Pulse Rate Pulse Rate [ Anterior Bilateral Throughout] Pulse Rate [ Apical] Respiratory Rate Respiratory Rate [Anterior Bilateral Throughout] Blood Pressure Blood Pressure [Left] O2 Sat by Pulse 95 Oximetry - General Appearance General appearance: well-developed, fatigue EENT: ATNC Neck: no JVD, supple Respiratory: Present: Decreased Breath Sounds Cardiology: S1S2, other (intact) Gastrointestinal: normoactive bowel sounds Integumentary: warm and dry Neurologic: confused Musculoskeletal: other (trace edema) - Lab 04/03/19 05:48 04/06/19 07:12 Most recent lab results ABG pH 7.435 pH Units (7.350-7.450) 04/02/19 14:45 ABG pCO2 52.3 mm Hg 04/02/19 14:45 ABG pO2 73.3 mm Hg (80.0-90.0) L 04/02/19 14:45 ABG HCO3 34.3 mmol/L (20.0-26.0) H 04/02/19 14:45 ABG O2 Saturation 95.3 % (95.0-99.0) 04/02/19 14:45 Calcium 8.7 mg/dL (8.4-10.2) 04/06/19 07:12 Phosphorus 3.20 mg/dL (2.5-4.5) 04/03/19 05:48 Magnesium 2.50 mg/dL (1.7-2.3) H 04/03/19 05:48 227.1 mg/dL (0.1-20.0) H 03/30/19 10:00 230.8 mg/dL (0.1-20.0) H 03/30/19 10:00 22 mmol/L 03/30/19 10:00 31 mg/dL (5-11.8) H 03/30/19 10:00 32 mg/dL (5-11.8) H 03/30/19 10:00 Medications & Allergies - Medications Allergies/Adverse Reactions: Allergies No Known Allergies Allergy (Unverified 08/21/14 12:00) Home Medications: Home Medications Medication Instructions Recorded Confirmed Last Taken Type ALBUTEROL Inhaler (OR & NICU) 2 puff IH QID PRN 03/29/19 03/29/19 03/29/19 History [Proair] Apixaban [Eliquis] 5 mg PO BID 03/29/19 03/29/19 03/27/19 History AtorvaSTATin [Lipitor] 40 mg PO DAILY 03/29/19 03/29/19 03/27/19 History FLUoxetine HCL [Prozac] 10 mg PO QDAY 03/29/19 03/29/19 03/27/19 History Glimepiride [Amaryl] 2 mg PO BID 03/29/19 03/29/19 03/27/19 History Lisinopril [Zestril] 5 mg PO QDAY 03/29/19 03/29/19 03/27/19 History Metformin HCl [metFORMIN] 1,000 mg PO BID 03/29/19 03/29/19 03/29/19 History Pantoprazole [Protonix] 40 mg PO QDAY 03/29/19 03/29/19 03/27/19 History Tiotropium [place] [Spiriva 4 gm IH QDAY 03/29/19 03/29/19 Unknown History Respimat] Active Medications: Generic Name Dose Route Start Last Admin Trade Name Freq PRN Reason Stop Dose Admin Acetaminophen 650 mg 03/29/19 22:13 04/06/19 06:20 Tylenol PO 650 mg Q4H PRN Administration Pain MILD(1-3)/Fever >100.5/ARIAS Albuterol 2.5 mg 03/29/19 22:15 04/02/19 02:10 Proventil IH 2.5 mg Q4HRT PRN Administration Shortness Of Breath Albuterol/Ipratropium 1 ampul 04/05/19 16:00 04/07/19 07:59 Duoneb *Not For Prn Use* IH 1 ampul Q4HRT RADHA Administration Apixaban 5 mg 03/31/19 02:00 04/06/19 21:36 Eliquis PO 5 mg BID RADHA Administration Protocol Atorvastatin Calcium 40 mg 03/31/19 10:00 04/06/19 10:58 Lipitor PO 40 mg DAILY RADHA Administration Benzonatate 100 mg 03/31/19 14:00 04/06/19 21:36 Tessalon Perles PO 100 mg Q8HR RADHA Administration Budesonide 0.5 mg 04/06/19 08:00 04/07/19 08:05 Pulmicort IH 0.5 mg Q12HRT RADHA Administration Dextrose 50 ml 03/30/19 16:21 04/03/19 23:20 D50w (25gm) Syringe IV 50 ml PRN PRN Administration Hypoglycemia Diltiazem HCl 15 mg 04/01/19 13:29 Cardizem IV PRN PRN HR >150 lasting >2 minutes Diltiazem HCl 90 mg 04/06/19 11:00 04/07/19 05:55 Cardizem PO 90 mg Q6H RADHA Administration Famotidine 10 mg 03/31/19 10:00 04/06/19 21:36 Pepcid PO 10 mg BID RADHA Administration Fluoxetine HCl 10 mg 03/31/19 02:00 04/06/19 10:58 Prozac PO 10 mg QDAY RADHA Administration Guaifenesin 5 ml 03/31/19 13:07 04/01/19 21:53 Guaifenesin Dm Syrup PO 5 ml Q6H PRN Administration Cough Hydralazine HCl 10 mg 03/31/19 01:41 Apresoline IV Q4HR PRN Blood Pressure Dextrose 1,000 mls @ 100 mls/hr 04/04/19 10:00 04/07/19 04:56 D5w IV 100 mls/hr DIRECT RADHA Administration Insulin Glargine 30 units 04/01/19 11:00 04/06/19 22:06 Lantus SUB-Q 30 units BID RADHA Administration Insulin Human Lispro 0 unit 03/31/19 00:00 04/07/19 07:38 Humalog SUB-Q Not Given Q6HR [facility] Protocol Insulin Human Lispro 10 unit 04/01/19 07:30 04/06/19 17:50 Humalog SUB-Q 10 unit AC RADHA Administration Lorazepam 2 mg 03/31/19 11:35 04/07/19 01:36 Ativan IV 2 mg Q1HR PRN Administration CIWA-Ar 8-15 Lorazepam 4 mg 03/31/19 11:35 04/06/19 04:23 Ativan PO 4 mg Q1HR PRN Administration CIWA-Ar 16-25 Lorazepam 4 mg 03/31/19 11:35 04/04/19 09:03 Ativan IV 4 mg Q15MIN PRN Administration CIWA-Ar >25 Methylprednisolone Sodium Succinate 20 mg 04/06/19 19:34 04/06/19 21:36 Solu-Medrol IV 20 mg Q8HR RADHA Administration Metoclopramide HCl 5 mg 03/29/19 22:13 03/30/19 20:54 Reglan IV 5 mg Q6H PRN Administration Nausea And Vomiting Metoprolol Tartrate 50 mg 04/03/19 12:00 04/06/19 22:56 Lopressor PO 50 mg BID RADHA Administration Ondansetron HCl 4 mg 03/29/19 22:13 Zofran IV Q8H PRN Nausea And Vomiting Sodium Chloride 10 ml 03/30/19 10:00 04/06/19 21:35 Sodium Chloride Flush Syringe 10 Ml IV 10 ml BID RADHA Administration Sodium Chloride 10 ml 03/29/19 22:13 04/06/19 00:11 Sodium Chloride Flush Syringe 10 Ml IV 10 ml PRN PRN Administration LINE FLUSH
[2019-04-07] MEDS: LANTUS SUB-Q SCH ×2 (09:41→23:48)
[2019-04-07] MEDS: PEPCID PO SCH ×2 (09:41→21:19)
[2019-04-07] MEDS: LOPRESSOR PO SCH ×2 (09:41→22:30)
[2019-04-07] MEDS: ELIQUIS PO SCH ×2 (09:42→21:20)
[2019-04-07] MEDS: SODIUM CHLORIDE FLUSH SYRINGE 10 ML IV SCH ×2 (09:43→22:30)
[2019-04-07] MEDS: PROzac PO SCH (09:43)
[2019-04-07 10:55] LABS: Basophils % (Auto) 0.1 % (0.0-1.8); Hematocrit 34.8 % (35.5-45.6); Hemoglobin 11.4 gm/dl (11.8-15.2); Lymphocytes # (Auto) 0.6 K/mm3 (1.2-5.4); Mean Corpuscular HGB Conc 33 % (32-34); Mean Corpuscular Volume 99 fl (84-94); Monocytes # (Auto) 0.8 K/mm3 (0.0-0.8); Platelet Count 189 K/mm3 (140-440); Red Blood Count 3.51 M/mm3 (3.65-5.03); Red Cell Distribution Width 14.8 % (13.2-15.2)
[2019-04-07 11:08] LABS: Calcium 8.8 mg/dL (8.4-10.2)
--- NOTE | 2019-04-07 11:38 | Progress Note ---
Assessment and Plan Assessment and plan: 58M who pw sob -Acute and chronic respiratory failure secondary to COPD exacerbation taper steroids per pulmonology -afib with rvr and hypercoaguable state mgt per cardiology, rate control improved, cont eliquis -Acute renal failure due to ATN nephrology following, improving Cr down to 1.7 -Hyperkalemia - was medically rx and improved -Hypernatremia Improved Now normal -Hypokalrmia supplemented Metabolic acidosis - sp bicarbonate drip, resolved -Polysubstance abuse/etoh withdrawal -uds pos for amphetamines, per Martinez, no documented hx of amphetamine abuse -CIWA protocol for etoh abuse -Acute metabolic encephalopathy likely due to etoh, and getting high dose ativan dc ativan for now, patient hasn't had a drink in over a week haldol prn, MR brain -Type 2 diabetes mellitus with persistent hyperglycemia - Continue insulin coverage DVT prophylaxis - On heparin DIspo; snf, per brother he lives with a room-mate and drinks heavily every day History Interval history: RN states that he was agitated, pulling lines and was pulling his pubic hair no fever, no seizure no sob, no cp, no vomiting Hospitalist Physical - Constitutional Vitals: Temp Pulse Resp BP Pulse Ox 98.0 F 90 21 135/75 95 04/07/19 05:57 04/07/19 10:00 04/07/19 10:00 04/07/19 05:57 04/07/19 08:05 General appearance: Present: no acute distress, well-nourished - EENT Eyes: Present: PERRL - Neck Neck: Present: supple - Respiratory Respiratory effort: normal Respiratory: bilateral: CTA - Cardiovascular Rhythm: irregularly irregular Heart Sounds: Present: S1 & S2 - Extremities Extremities: no ischemia - Abdominal General gastrointestinal: soft - Integumentary Integumentary: Present: clear, warm - Psychiatric Psychiatric: no appropriate mood/affect, no intact judgment & insight, cooperative - Neurologic Neurologic: CNII-XII intact, no focal deficits, other (confused) Results - Labs CBC & Chem 7: 04/07/19 10:40 04/07/19 10:40 Labs: Laboratory Last Values WBC 10.8 K/mm3 (4.5-11.0) 04/07/19 10:40 RBC 3.51 M/mm3 (3.65-5.03) L 04/07/19 10:40 Hgb 11.4 gm/dl (11.8-15.2) L 04/07/19 10:40 Hct 34.8 % (35.5-45.6) L 04/07/19 10:40 MCV 99 fl (84-94) H 04/07/19 10:40 MCH 32 pg (28-32) 04/07/19 10:40 MCHC 33 % (32-34) 04/07/19 10:40 RDW 14.8 % (13.2-15.2) 04/07/19 10:40 Plt Count 189 K/mm3 (140-440) 04/07/19 10:40 Lymph % (Auto) 6.0 % (13.4-35.0) L 04/07/19 10:40 [place] % (Auto) 7.0 % (0.0-7.3) 04/07/19 10:40 Eos % (Auto) 0.0 % (0.0-4.3) 04/07/19 10:40 Baso % (Auto) 0.1 % (0.0-1.8) 04/07/19 10:40 Lymph # 0.6 K/mm3 (1.2-5.4) L 04/07/19 10:40 [place] # 0.8 K/mm3 (0.0-0.8) 04/07/19 10:40 Eos # 0.0 K/mm3 (0.0-0.4) 04/07/19 10:40 Baso # 0.0 K/mm3 (0.0-0.1) 04/07/19 10:40 Seg Neutrophils % 86.9 % (40.0-70.0) H 04/07/19 10:40 Seg Neutrophils # 9.4 K/mm3 (1.8-7.7) H 04/07/19 10:40 POC ABG pH 7.827 (7.35-7.45) H 04/02/19 03:09 ABG pH 7.435 pH Units (7.350-7.450) 04/02/19 14:45 POC ABG pCO2 50.5 (35-45) H 03/30/19 05:58 ABG pCO2 52.3 mm Hg 04/02/19 14:45 POC ABG pO2 157 (80-105) H 04/02/19 03:09 ABG pO2 73.3 mm Hg (80.0-90.0) L 04/02/19 14:45 POC ABG HCO3 30.3 (22-26 mml/L) 04/02/19 03:09 ABG HCO3 34.3 mmol/L (20.0-26.0) H 04/02/19 14:45 POC ABG Total CO2 31 (23-27mmol/L) 04/02/19 03:09 POC ABG O2 Sat 100 04/02/19 03:09 ABG O2 Saturation 95.3 % (95.0-99.0) 04/02/19 14:45 ABG O2 Content 14.7 (0.0-44) 04/02/19 14:45 POC ABG Base Excess 12 ((-2) - (+3)mmol/L) 04/02/19 03:09 ABG Base Excess 8.7 mmol/L (-2.0-3.0) H 04/02/19 14:45 ABG Hemoglobin 11.1 gm/dl (14.0-18.0) L 04/02/19 14:45 ABG Carboxyhemoglobin 1.3 % (0.0-5.0) 04/02/19 14:45 ABG Methemoglobin 0.5 % (0.0-1.5) 04/02/19 14:45 93.5 % (95.0-99.0) L 04/02/19 14:45 32 % 04/02/19 14:45 Sodium 144 mmol/L (137-145) 04/07/19 10:40 Potassium 3.8 mmol/L (3.6-5.0) 04/07/19 10:40 Chloride 102.0 mmol/L (98-107) 04/07/19 10:40 Carbon Dioxide 34 mmol/L (22-30) H 04/07/19 10:40 12 mmol/L 04/07/19 10:40 BUN 50 mg/dL (9-20) H 04/07/19 10:40 1.5 mg/dL (0.8-1.5) 04/07/19 10:40 Estimated GFR 48 ml/min 04/07/19 10:40 33 % 04/07/19 10:40 Glucose 298 mg/dL (75-100) H 04/07/19 10:40 POC Glucose 219 (70-105) H 04/07/19 02:51 6.4 % (4-6) H 03/29/19 23:37 342 Mosm/kg 04/04/19 14:26 Lactic Acid 1.00 mmol/L (0.7-2.0) 03/29/19 13:18 Calcium 8.8 mg/dL (8.4-10.2) 04/07/19 10:40 Phosphorus 3.20 mg/dL (2.5-4.5) 04/07/19 10:40 Magnesium 2.20 mg/dL (1.7-2.3) 04/07/19 10:40 0.50 mg/dL (0.1-1.2) 04/03/19 05:48 0.2 mg/dL (0-0.2) 04/03/19 05:48 0.3 mg/dL 04/03/19 05:48 AST 33 units/L (5-40) 04/03/19 05:48 ALT 31 units/L (7-56) 04/03/19 05:48 109 units/L (35-129) 04/03/19 05:48 53.0 umol/L (25-60) 04/03/19 21:00 2408 units/L (55-170) H 03/29/19 13:18 CK-MB (CK-2) 17.6 ng/mL (0.0-4.0) H 03/29/19 13:18 CK-MB (CK-2) Rel Index 0.7 (0-4) 03/29/19 13:18 < 0.010 ng/mL (0.00-0.029) 03/31/19 08:43 6.9 g/dL (6.3-8.2) 04/03/19 05:48 3.6 g/dL (3.9-5) L 04/03/19 05:48 1.1 % 04/03/19 05:48 Vitamin B12 1568 pg/mL (211-911) H 04/03/19 21:00 TSH 1.490 mlU/mL (0.270-4.200) 08/21/19 21:00 Free T4 0.92 ng/dL (0.76-1.46) 04/02/19 13:20 Yellow (Yellow) 03/29/19 12:29 Slightly-cloudy (Clear) 03/29/19 12:29 5.0 (5.0-7.0) 03/29/19 12:29 Ur Specific [place] 1.017 (1.003-1.030) 03/29/19 12:29 <15 mg/dl mg/dL (Negative) 03/29/19 12:29 50 mg/dL (Negative) 03/29/19 12:29 Tr mg/dL (Negative) 03/29/19 12:29 Sm (Negative) 03/29/19 12:29 Neg (Negative) 03/29/19 12:29 Neg (Negative) 03/29/19 12:29 < 2.0 mg/dL (<2.0) 03/29/19 12:29 Ur Leukocyte Esterase Neg (Negative) 03/29/19 12:29 3.0 /HPF (0.0-6.0) 03/29/19 12:29 1.0 /HPF (0.0-6.0) 03/29/19 12:29 Few /HPF 03/29/19 12:29 None seen (None Seen) 03/30/19 10:00 632 Mosm/kg 04/05/19 06:15 227.1 mg/dL (0.1-20.0) H 03/30/19 10:00 230.8 mg/dL (0.1-20.0) H 03/30/19 10:00 Protein/Creatinin Ratio 0.14 03/30/19 10:00 22 mmol/L 03/30/19 10:00 31 mg/dL (5-11.8) H 03/30/19 10:00 32 mg/dL (5-11.8) H 03/30/19 10:00 Presumptive negative 03/30/19 10:00 Presumptive negative 03/30/19 10:00 Ur Barbiturates Screen Presumptive negative 03/30/19 10:00 Ur Phencyclidine Scrn Presumptive negative 03/30/19 10:00 Ur Amphetamines Screen Presumptive positive 03/30/19 10:00 U Benzodiazepines Scrn Presumptive negative 03/30/19 10:00 Presumptive negative 03/30/19 10:00 U Marijuana (THC) Screen Presumptive negative 03/30/19 10:00 Disclamer 03/30/19 10:00 Hepatitis A IgM Ab Non-reactive (NonReactive) 03/29/19 19:41 Hep Bs Antigen Non-reactive (Negative) 03/29/19 19:41 Hep B Core IgM Ab Non-reactive (NonReactive) 03/29/19 19:41 Non-reactive (NonReactive) 03/29/19 19:41 Active Medications - Current Medications Current Medications: Generic Name Dose Route Start Last Admin Trade Name Freq PRN Reason Stop Dose Admin Acetaminophen 650 mg 03/29/19 22:13 04/06/19 06:20 Tylenol PO 650 mg Q4H PRN Administration Pain MILD(1-3)/Fever >100.5/ARIAS Albuterol 2.5 mg 03/29/19 22:15 04/02/19 02:10 Proventil IH 2.5 mg Q4HRT PRN Administration Shortness Of Breath Albuterol/Ipratropium 1 ampul 04/05/19 16:00 04/07/19 07:59 Duoneb *Not For Prn Use* IH 1 ampul Q4HRT RADHA Administration Apixaban 5 mg 03/31/19 02:00 04/07/19 09:42 Eliquis PO 5 mg BID RADHA Administration Protocol Atorvastatin Calcium 40 mg 03/31/19 10:00 04/07/19 09:41 Lipitor PO 40 mg DAILY RADHA Administration Benzonatate 100 mg 03/31/19 14:00 04/06/19 21:36 Tessalon Perles PO 100 mg Q8HR RADHA Administration Budesonide 0.5 mg 04/06/19 08:00 04/07/19 08:05 Pulmicort IH 0.5 mg Q12HRT RADHA Administration Dextrose 50 ml 03/30/19 16:21 04/03/19 23:20 D50w (25gm) Syringe IV 50 ml PRN PRN Administration Hypoglycemia Diltiazem HCl 15 mg 04/01/19 13:29 Cardizem IV PRN PRN HR >150 lasting >2 minutes Diltiazem HCl 90 mg 04/06/19 11:00 04/07/19 05:55 Cardizem PO 90 mg Q6H RADHA Administration Famotidine 10 mg 03/31/19 10:00 04/07/19 09:41 Pepcid PO 10 mg BID RADHA Administration Fluoxetine HCl 10 mg 03/31/19 02:00 04/07/19 09:43 Prozac PO 10 mg QDAY RADHA Administration Guaifenesin 5 ml 03/31/19 13:07 04/01/19 21:53 Guaifenesin Dm Syrup PO 5 ml Q6H PRN Administration Cough Hydralazine HCl 10 mg 03/31/19 01:41 Apresoline IV Q4HR PRN Blood Pressure Dextrose 1,000 mls @ 100 mls/hr 04/04/19 10:00 04/07/19 04:56 D5w IV 100 mls/hr DIRECT RADHA Administration Insulin Glargine 30 units 04/01/19 11:00 04/07/19 09:41 Lantus SUB-Q 30 units BID RADHA Administration Insulin Human Lispro 0 unit 03/31/19 00:00 04/07/19 07:38 Humalog SUB-Q Not Given Q6HR [facility] Protocol Insulin Human Lispro 10 unit 04/01/19 07:30 04/07/19 09:42 Humalog SUB-Q 10 unit AC RADHA Administration Methylprednisolone Sodium Succinate 20 mg 04/06/19 19:34 04/06/19 21:36 Solu-Medrol IV 20 mg Q8HR RADHA Administration Metoclopramide HCl 5 mg 03/29/19 22:13 03/30/19 20:54 Reglan IV 5 mg Q6H PRN Administration Nausea And Vomiting Metoprolol Tartrate 50 mg 04/03/19 12:00 04/07/19 09:41 Lopressor PO 50 mg BID RADHA Administration Ondansetron HCl 4 mg 03/29/19 22:13 Zofran IV Q8H PRN Nausea And Vomiting Sodium Chloride 10 ml 03/30/19 10:00 04/07/19 09:43 Sodium Chloride Flush Syringe 10 Ml IV 10 ml BID RADHA Administration Sodium Chloride 10 ml 03/29/19 22:13 04/06/19 00:11 Sodium Chloride Flush Syringe 10 Ml IV 10 ml PRN PRN Administration LINE FLUSH Nutrition/Malnutrition Assess - Dietary Evaluation Nutrition/Malnutrition Findings: Nutrition Notes Start: 03/30/19 09:51 Freq: Status: Active Protocol: Document 04/05/19 14:49 NHALL (Rec: 04/05/19 14:56 WIJUAN [id number]) Nutrition Notes Initial or Follow up Reassessment Current Diagnosis COPD,Diabetes Other Pertinent Diagnosis EtOH withdrawal, ARF, Acute metabolic encephalopathy Current Diet Renal pureed + Nepro daily Labs/Tests Reviewed Pertinent Medications D5 at 100ml/hr Height 5 ft 6 in Weight 132.5 kg [place] Body Weight (kg) 64.54 BMI 47.1 Subjective/Other Information Pt remains confused. Per sitter, pt drinks better than he eats. He has consumed 33% of meals since last assessment . Diet downgraded to pureed today. Burn Absent Trauma Absent #1 Nutrition Diagnosis Inadequate oral intake Diagnosis Progress(for reassessment Continues documentation) Is patient on ventilator? No Is Patient Ambulatory and/or Out of Bed No REE-([place]-confined to bed) 2503.380 Kcal/Kg value to use for calculation 14 Approximate Energy Requirements Using 1855 kcal/Kg Calculation Used for Recommendations Kcal/kg Additional Notes Pro needs 0.8-1g/kg adjBW: 79- 99g/day Fluid needs 1ml/kcal Nutrition Intervention Change Diet Order: Continue renal diet Add Supplement/Snack (indicate name/kcal Nepro BID /protein ) Provides kCal: 850 Provides Protein (gm) 38 Goal #1 Meet at least 75% of calorie and protein needs via PO and ONS intakes Follow-Up By: 04/08/19 Additional Comments F/U: intakes (meals/ONS), wt
[2019-04-07] MEDS: NACL 0.45% 1000 ML 1,000 ML IV SCH (12:29)
--- NOTE | 2019-04-07 12:29 | Progress Note ---
Assessment and Plan The patient is stable from a cardiac standpoint. Continue current management. The patient has been seen in conjunction with Dr. Lawton, who agrees with the assessment and plan. - Patient Problems (1) Acute renal failure Current Visit: Yes Status: Acute (2) Altered mental status Current Visit: Yes Status: Acute (3) Atrial fibrillation with RVR Current Visit: Yes Status: Resolved (4) Diabetes Current Visit: Yes Status: Chronic (5) HTN (hypertension) Current Visit: Yes Status: Chronic (6) Obesity Current Visit: Yes Status: Chronic (7) Sleep apnea Current Visit: Yes Status: Chronic (8) Alcohol withdrawal Current Visit: Yes Status: Suspected Subjective Date of service: 04/07/19 Principal diagnosis: Afib Interval history: The patient is lying in bed in NAD. He is confused and there is a sitter at bedside. He remains in atrial fibrillation with CVR. Objective Last Vital Signs Temp 97.5 F L 04/07/19 11:10 Pulse 75 04/07/19 11:10 Resp 20 04/07/19 11:10 BP 121/73 04/07/19 11:10 Pulse Ox 94 04/07/19 11:10 - Physical Examination General: No Apparent Distress, Other (sleepy, confused) HEENT: Positive: PERRL, Normocephaly Neck: Positive: neck supple. Negative: JVD/HJR, Bruit Cardiac: Positive: Reg Rate and Rhythm Lungs: Positive: Normal Exam Neuro: Positive: Other (confused) Abdomen: Positive: Soft. Negative: Tender /Rectal: Other (deferred) Skin: Positive: Clear. Negative: Rash Musculoskeletal: Normal Range of Motion Extremities: Present: +1 Edema, Other (pedal pulse intact) - Labs and Meds CBC 04/07/19 Range/Units 10:40 WBC 10.8 (4.5-11.0) K/mm3 RBC 3.51 L (3.65-5.03) M/mm3 Hgb 11.4 L (11.8-15.2) gm/dl Hct 34.8 L (35.5-45.6) % Plt Count 189 (140-440) K/mm3 Lymph # 0.6 L (1.2-5.4) K/mm3 [place] # 0.8 (0.0-0.8) K/mm3 Eos # 0.0 (0.0-0.4) K/mm3 Baso # 0.0 (0.0-0.1) K/mm3 Comprehensive Metabolic Panel 04/07/19 Range/Units 10:40 Sodium 144 (137-145) mmol/L Potassium 3.8 (3.6-5.0) mmol/L Chloride 102.0 (98-107) mmol/L Carbon Dioxide 34 H (22-30) mmol/L BUN 50 H (9-20) mg/dL Creatinine 1.5 (0.8-1.5) mg/dL Glucose 298 H (75-100) mg/dL Calcium 8.8 (8.4-10.2) mg/dL - Imaging and Cardiology Echo: report reviewed (03/2019: EF 55-60%, abnormal left ventricular diastolic function ) - Telemetry EKG Rhythm: Atrial Fibrillation
[2019-04-07] MEDS: TESSALON PERLES PO SCH ×3 (14:30→21:20)
[2019-04-07] MEDS: SOLU-Medrol IV SCH ×2 (14:30→19:26)
--- NOTE | 2019-04-07 15:48 | Progress Note ---
Assessment and Plan Imp: 1. COPD exac. 2. Acute respiratory failure, hypoxia 3. Morbid obesity, probable OHS 4. TEGAN 5. Metabolic encephalopathy, ? due to DTs 6. HUMA, noncompliant with CPAP per [facility] notes Rec: 1. Try changing to Prednisone given delirium/agitation 2. Cont. Bronchodilators 3. IVFs 4. Obtain better history when mentation improves 5. D/c Dilaudid; avoid opioids 6. Further plans pending clinical course No family present Subjective Date of service: 04/07/19 Principal diagnosis: Afib Interval history: No events. Remains confused, agitated, in restraints. Mentation a little better today. Cannot give me a fully coherent hx although does state his breathing is better. Active Medications Acetaminophen (Tylenol) 650 mg PO Q4H PRN PRN Reason: Pain MILD(1-3)/Fever >100.5/ARIAS Last Admin: 04/06/19 06:20 Dose: 650 mg Documented by: Albuterol (Proventil) 2.5 mg IH Q4HRT PRN PRN Reason: Shortness Of Breath Last Admin: 04/02/19 02:10 Dose: 2.5 mg Documented by: Albuterol/Ipratropium (Duoneb *Not For Prn Use*) 1 ampul IH Q4HRT [facility] Last Admin: 04/07/19 12:42 Dose: 1 ampul Documented by: Apixaban (Eliquis) 5 mg PO BID [facility]; Protocol Last Admin: 04/07/19 09:42 Dose: 5 mg Documented by: Atorvastatin Calcium (Lipitor) 40 mg PO DAILY [facility] Last Admin: 04/07/19 09:41 Dose: 40 mg Documented by: Benzonatate (Tessalon Perles) 100 mg PO Q8HR [facility] Last Admin: 04/07/19 14:30 Dose: 100 mg Documented by: Budesonide (Pulmicort) 0.5 mg IH Q12HRT [facility] Last Admin: 04/07/19 08:05 Dose: 0.5 mg Documented by: Dextrose (D50w (25gm) Syringe) 50 ml IV PRN PRN PRN Reason: Hypoglycemia Last Admin: 04/03/19 23:20 Dose: 50 ml Documented by: Diltiazem HCl (Cardizem) 15 mg IV PRN PRN PRN Reason: HR >150 lasting >2 minutes Diltiazem HCl (Cardizem) 90 mg PO Q6H [facility] Last Admin: 04/07/19 12:28 Dose: 90 mg Documented by: Famotidine (Pepcid) 10 mg PO BID [facility] Last Admin: 04/07/19 09:41 Dose: 10 mg Documented by: Fluoxetine HCl (Prozac) 10 mg PO QDAY [facility] Last Admin: 04/07/19 09:43 Dose: 10 mg Documented by: Guaifenesin (Guaifenesin Dm Syrup) 5 ml PO Q6H PRN PRN Reason: Cough Last Admin: 04/01/19 21:53 Dose: 5 ml Documented by: Hydralazine HCl (Apresoline) 10 mg IV Q4HR PRN PRN Reason: Blood Pressure Sodium Chloride (Nacl 0.45% 1000 Ml) 1,000 mls @ 100 mls/hr IV DIRECT [facility] Last Admin: 04/07/19 12:29 Dose: 100 mls/hr Documented by: Insulin Glargine (Lantus) 30 units SUB-Q BID [facility] Last Admin: 04/07/19 09:41 Dose: 30 units Documented by: Insulin Human Lispro (Humalog) 0 unit SUB-Q Q6HR [facility]; Protocol Last Admin: 04/07/19 11:45 Dose: Not Given Documented by: Insulin Human Lispro (Humalog) 10 unit SUB-Q AC [facility] Last Admin: 04/07/19 12:29 Dose: 10 unit Documented by: Metoclopramide HCl (Reglan) 5 mg IV Q6H PRN PRN Reason: Nausea And Vomiting Last Admin: 03/30/19 20:54 Dose: 5 mg Documented by: Metoprolol Tartrate (Lopressor) 50 mg PO BID [facility] Last Admin: 04/07/19 09:41 Dose: 50 mg Documented by: Ondansetron HCl (Zofran) 4 mg IV Q8H PRN PRN Reason: Nausea And Vomiting Prednisone (Deltasone) 40 mg PO QDAY [facility] Sodium Chloride (Sodium Chloride Flush Syringe 10 Ml) 10 ml IV BID [facility] Last Admin: 04/07/19 09:43 Dose: 10 ml Documented by: Sodium Chloride (Sodium Chloride Flush Syringe 10 Ml) 10 ml IV PRN PRN PRN Reason: LINE FLUSH Last Admin: 04/06/19 00:11 Dose: 10 ml Documented by: Objective Vital Signs - 12hr 04/07/19 04/07/19 04/07/19 05:05 05:55 05:57 Temperature 98.0 F Pulse Rate 88 88 Pulse Rate [ 88 Anterior Bilateral Throughout] Pulse Rate [ Apical] Respiratory 20 Rate Respiratory 22 Rate [Anterior Bilateral Throughout] Blood Pressure 125/79 135/75 O2 Sat by Pulse 95 Oximetry 04/07/19 04/07/19 04/07/19 08:00 08:05 10:00 Temperature Pulse Rate Pulse Rate [ 92 H Anterior Bilateral Throughout] Pulse Rate [ 90 Apical] Respiratory 21 Rate Respiratory 20 Rate [Anterior Bilateral Throughout] Blood Pressure O2 Sat by Pulse 95 Oximetry 04/07/19 04/07/19 11:10 12:43 Temperature 97.5 F L Pulse Rate 75 Pulse Rate [ 78 Anterior Bilateral Throughout] Pulse Rate [ Apical] Respiratory 20 Rate Respiratory 18 Rate [Anterior Bilateral Throughout] Blood Pressure 121/73 O2 Sat by Pulse 94 Oximetry Constitutional: other (obese, confused, agitated) Eyes: non-icteric ENT: oropharynx moist Neck: supple Ascultation: Bilateral: diminished breath sounds Percussion: Bilateral: not dull Cardiovascular: irregular rhythm (ir/ir, no mrg) Gastrointestinal: normoactive bowel sounds Integumentary: normal Extremities: no cyanosis, no edema, pink and warm Neurologic: non-focal exam Psychiatric: other (unable to assess) CBC and BMP: 04/07/19 10:40 04/07/19 10:40 ABG, PT/INR, D-dimer: ABG POC ABG pH 7.827 (7.35-7.45) H 04/02/19 03:09 ABG pH 7.435 pH Units (7.350-7.450) 04/02/19 14:45 ABG pCO2 52.3 mm Hg 04/02/19 14:45 POC ABG pO2 157 (80-105) H 04/02/19 03:09 ABG pO2 73.3 mm Hg (80.0-90.0) L 04/02/19 14:45 POC ABG HCO3 30.3 (22-26 mml/L) 04/02/19 03:09 POC ABG Total CO2 31 (23-27mmol/L) 04/02/19 03:09 POC ABG O2 Sat 100 04/02/19 03:09 ABG O2 Saturation 95.3 % (95.0-99.0) 04/02/19 14:45 Abnormal lab findings: Abnormal Labs 03/29/19 03/29/19 03/29/19 13:18 13:18 18:22 RBC 3.24 L Hgb 10.6 L Hct 33.2 L MCV 103 H MCH 33 H RDW 15.5 H Lymph % (Auto) 9.4 L Foster % (Auto) 7.8 H Lymph # 0.8 L Seg Neutrophils % 81.5 H Seg Neutrophils # POC ABG pH 7.122 L ABG pH POC ABG pCO2 45.4 H POC ABG pO2 ABG pO2 ABG HCO3 ABG O2 Saturation ABG Base Excess ABG Hemoglobin Oxyhemoglobin Sodium 132 L Potassium 6.6 H* Chloride 94.9 L Carbon Dioxide 14 L BUN 73 H Creatinine 8.6 H Glucose POC Glucose Hemoglobin A1c Phosphorus Magnesium AST 48 H Alkaline Phosphatase 136 H Total Creatine Kinase 2408 H CK-MB (CK-2) 17.6 H Albumin Vitamin B12 Urine Creatinine Urine Total Protein 03/29/19 03/30/19 03/30/19 23:37 05:58 10:00 RBC Hgb Hct MCV MCH RDW Lymph % (Auto) Foster % (Auto) Lymph # Seg Neutrophils % Seg Neutrophils # POC ABG pH 7.143 L ABG pH POC ABG pCO2 50.5 H POC ABG pO2 159 H ABG pO2 ABG HCO3 ABG O2 Saturation ABG Base Excess ABG Hemoglobin Oxyhemoglobin Sodium Potassium Chloride Carbon Dioxide BUN Creatinine Glucose POC Glucose Hemoglobin A1c 6.4 H Phosphorus Magnesium AST Alkaline Phosphatase Total Creatine Kinase CK-MB (CK-2) Albumin Vitamin B12 Urine Creatinine 227.1 H Urine Total Protein 31 H 03/30/19 03/30/19 03/30/19 10:00 10:12 10:12 RBC 3.17 L Hgb 10.5 L Hct 31.8 L MCV 100 H MCH 33 H RDW Lymph % (Auto) 8.1 L Foster % (Auto) Lymph # 0.5 L Seg Neutrophils % 88.0 H Seg Neutrophils # POC ABG pH ABG pH POC ABG pCO2 POC ABG pO2 ABG pO2 ABG HCO3 ABG O2 Saturation ABG Base Excess ABG Hemoglobin Oxyhemoglobin Sodium 132 L Potassium 6.6 H* Chloride 91.9 L Carbon Dioxide 19 L BUN 89 H Creatinine 7.2 H Glucose 302 H POC Glucose Hemoglobin A1c Phosphorus 7.50 H Magnesium AST Alkaline Phosphatase Total Creatine Kinase CK-MB (CK-2) Albumin Vitamin B12 Urine Creatinine 230.8 H Urine Total Protein 32 H 03/30/19 03/30/19 03/30/19 11:42 16:54 17:45 RBC Hgb Hct MCV MCH RDW Lymph % (Auto) Foster % (Auto) Lymph # Seg Neutrophils % Seg Neutrophils # POC ABG pH ABG pH 7.294 L POC ABG pCO2 POC ABG pO2 ABG pO2 67.1 L ABG HCO3 19.4 L ABG O2 Saturation 91.4 L ABG Base Excess -6.7 L ABG Hemoglobin 9.9 L Oxyhemoglobin 89.4 L Sodium Potassium Chloride Carbon Dioxide BUN Creatinine Glucose POC Glucose 275 H 361 H Hemoglobin A1c Phosphorus Magnesium AST Alkaline Phosphatase Total Creatine Kinase CK-MB (CK-2) Albumin Vitamin B12 Urine Creatinine Urine Total Protein 03/30/19 03/30/19 03/30/19 20:00 20:28 23:27 RBC Hgb Hct MCV MCH RDW Lymph % (Auto) Foster % (Auto) Lymph # Seg Neutrophils % Seg Neutrophils # POC ABG pH ABG pH 7.293 L POC ABG pCO2 POC ABG pO2 ABG pO2 ABG HCO3 ABG O2 Saturation ABG Base Excess -5.9 L ABG Hemoglobin 11.0 L Oxyhemoglobin 94.1 L Sodium 134 L Potassium Chloride 92.9 L Carbon Dioxide 19 L BUN 93 H Creatinine 5.5 H Glucose 374 H POC Glucose 372 H Hemoglobin A1c Phosphorus Magnesium AST Alkaline Phosphatase Total Creatine Kinase CK-MB (CK-2) Albumin Vitamin B12 Urine Creatinine Urine Total Protein 03/31/19 03/31/19 03/31/19 04:39 04:39 05:27 RBC 3.08 L Hgb 10.3 L Hct 30.6 L MCV 99 H MCH 33 H RDW Lymph % (Auto) 6.5 L Foster % (Auto) Lymph # 0.3 L Seg Neutrophils % 86.6 H Seg Neutrophils # POC ABG pH ABG pH POC ABG pCO2 POC ABG pO2 ABG pO2 ABG HCO3 ABG O2 Saturation ABG Base Excess ABG Hemoglobin Oxyhemoglobin Sodium 135 L Potassium Chloride 92.7 L Carbon Dioxide BUN 92 H Creatinine 4.5 H Glucose 344 H POC Glucose 354 H Hemoglobin A1c Phosphorus Magnesium AST Alkaline Phosphatase Total Creatine Kinase CK-MB (CK-2) Albumin Vitamin B12 Urine Creatinine Urine Total Protein 03/31/19 03/31/19 03/31/19 08:03 12:08 17:08 RBC Hgb Hct MCV MCH RDW Lymph % (Auto) Foster % (Auto) Lymph # Seg Neutrophils % Seg Neutrophils # POC ABG pH ABG pH POC ABG pCO2 POC ABG pO2 ABG pO2 ABG HCO3 ABG O2 Saturation ABG Base Excess ABG Hemoglobin Oxyhemoglobin Sodium Potassium Chloride Carbon Dioxide BUN Creatinine Glucose POC Glucose 375 H 410 H 361 H Hemoglobin A1c Phosphorus Magnesium AST Alkaline Phosphatase Total Creatine Kinase CK-MB (CK-2) Albumin Vitamin B12 Urine Creatinine Urine Total Protein 03/31/19 04/01/19 04/01/19 23:12 05:22 08:28 RBC Hgb Hct MCV MCH RDW Lymph % (Auto) Foster % (Auto) Lymph # Seg Neutrophils % Seg Neutrophils # POC ABG pH ABG pH POC ABG pCO2 POC ABG pO2 ABG pO2 ABG HCO3 ABG O2 Saturation ABG Base Excess ABG Hemoglobin Oxyhemoglobin Sodium Potassium Chloride Carbon Dioxide BUN Creatinine Glucose POC Glucose 355 H 300 H 259 H Hemoglobin A1c Phosphorus Magnesium AST Alkaline Phosphatase Total Creatine Kinase CK-MB (CK-2) Albumin Vitamin B12 Urine Creatinine Urine Total Protein 04/01/19 04/01/19 04/01/19 11:35 16:18 23:27 RBC Hgb Hct MCV MCH RDW Lymph % (Auto) Foster % (Auto) Lymph # Seg Neutrophils % Seg Neutrophils # POC ABG pH ABG pH POC ABG pCO2 POC ABG pO2 ABG pO2 ABG HCO3 ABG O2 Saturation ABG Base Excess ABG Hemoglobin Oxyhemoglobin Sodium Potassium Chloride Carbon Dioxide BUN Creatinine Glucose POC Glucose 283 H 169 H 344 H Hemoglobin A1c Phosphorus Magnesium AST Alkaline Phosphatase Total Creatine Kinase CK-MB (CK-2) Albumin Vitamin B12 Urine Creatinine Urine Total Protein 04/02/19 04/02/19 04/02/19 02:39 03:09 05:11 RBC Hgb Hct MCV MCH RDW Lymph % (Auto) Foster % (Auto) Lymph # Seg Neutrophils % Seg Neutrophils # POC ABG pH 7.827 H ABG pH POC ABG pCO2 POC ABG pO2 157 H ABG pO2 ABG HCO3 ABG O2 Saturation ABG Base Excess ABG Hemoglobin Oxyhemoglobin Sodium 149 H D Potassium 3.3 L Chloride Carbon Dioxide 35 H D BUN 78 H Creatinine 2.2 H D Glucose 185 H POC Glucose 252 H Hemoglobin A1c Phosphorus Magnesium AST Alkaline Phosphatase Total Creatine Kinase CK-MB (CK-2) Albumin Vitamin B12 Urine Creatinine Urine Total Protein 04/02/19 04/02/19 04/02/19 05:31 08:28 11:46 RBC Hgb Hct MCV MCH RDW Lymph % (Auto) Foster % (Auto) Lymph # Seg Neutrophils % Seg Neutrophils # POC ABG pH ABG pH POC ABG pCO2 POC ABG pO2 ABG pO2 ABG HCO3 ABG O2 Saturation ABG Base Excess ABG Hemoglobin Oxyhemoglobin Sodium Potassium Chloride Carbon Dioxide BUN Creatinine Glucose POC Glucose 160 H 140 H 186 H Hemoglobin A1c Phosphorus Magnesium AST Alkaline Phosphatase Total Creatine Kinase CK-MB (CK-2) Albumin Vitamin B12 Urine Creatinine Urine Total Protein 04/02/19 04/02/19 04/03/19 14:45 20:59 00:23 RBC Hgb Hct MCV MCH RDW Lymph % (Auto) Foster % (Auto) Lymph # Seg Neutrophils % Seg Neutrophils # POC ABG pH ABG pH POC ABG pCO2 POC ABG pO2 ABG pO2 73.3 L ABG HCO3 34.3 H ABG O2 Saturation ABG Base Excess 8.7 H ABG Hemoglobin 11.1 L Oxyhemoglobin 93.5 L Sodium Potassium Chloride Carbon Dioxide BUN Creatinine Glucose POC Glucose 195 H 211 H Hemoglobin A1c Phosphorus Magnesium AST Alkaline Phosphatase Total Creatine Kinase CK-MB (CK-2) Albumin Vitamin B12 Urine Creatinine Urine Total Protein 04/03/19 04/03/19 04/03/19 05:48 05:48 06:00 RBC 3.46 L Hgb 11.5 L Hct 34.8 L MCV 101 H MCH 33 H RDW 15.5 H Lymph % (Auto) 13.2 L Foster % (Auto) 8.8 H Lymph # 0.8 L Seg Neutrophils % 77.8 H Seg Neutrophils # POC ABG pH ABG pH POC ABG pCO2 POC ABG pO2 ABG pO2 ABG HCO3 ABG O2 Saturation ABG Base Excess ABG Hemoglobin Oxyhemoglobin Sodium 152 H Potassium 3.1 L Chloride Carbon Dioxide 34 H BUN 71 H Creatinine 1.8 H Glucose 128 H POC Glucose 124 H Hemoglobin A1c Phosphorus Magnesium 2.50 H AST Alkaline Phosphatase Total Creatine Kinase CK-MB (CK-2) Albumin 3.6 L Vitamin B12 Urine Creatinine Urine Total Protein 04/03/19 04/03/19 04/03/19 12:42 21:00 22:04 RBC Hgb Hct MCV MCH RDW Lymph % (Auto) Foster % (Auto) Lymph # Seg Neutrophils % Seg Neutrophils # POC ABG pH ABG pH POC ABG pCO2 POC ABG pO2 ABG pO2 ABG HCO3 ABG O2 Saturation ABG Base Excess ABG Hemoglobin Oxyhemoglobin Sodium Potassium Chloride Carbon Dioxide BUN Creatinine Glucose POC Glucose 192 H 57 L Hemoglobin A1c Phosphorus Magnesium AST Alkaline Phosphatase Total Creatine Kinase CK-MB (CK-2) Albumin Vitamin B12 1568 H Urine Creatinine Urine Total Protein 04/03/19 04/04/19 04/04/19 23:21 00:42 04:23 RBC Hgb Hct MCV MCH RDW Lymph % (Auto) Foster % (Auto) Lymph # Seg Neutrophils % Seg Neutrophils # POC ABG pH ABG pH POC ABG pCO2 POC ABG pO2 ABG pO2 ABG HCO3 ABG O2 Saturation ABG Base Excess ABG Hemoglobin Oxyhemoglobin Sodium 155 H Potassium 3.1 L Chloride 107.8 H Carbon Dioxide 34 H BUN 64 H Creatinine 1.9 H Glucose POC Glucose 69 L 63 L Hemoglobin A1c Phosphorus Magnesium AST Alkaline Phosphatase Total Creatine Kinase CK-MB (CK-2) Albumin Vitamin B12 Urine Creatinine Urine Total Protein 04/04/19 04/04/19 04/04/19 11:46 16:31 22:12 RBC Hgb Hct MCV MCH RDW Lymph % (Auto) Foster % (Auto) Lymph # Seg Neutrophils % Seg Neutrophils # POC ABG pH ABG pH POC ABG pCO2 POC ABG pO2 ABG pO2 ABG HCO3 ABG O2 Saturation ABG Base Excess ABG Hemoglobin Oxyhemoglobin Sodium Potassium Chloride Carbon Dioxide BUN Creatinine Glucose POC Glucose 111 H 174 H 229 H Hemoglobin A1c Phosphorus Magnesium AST Alkaline Phosphatase Total Creatine Kinase CK-MB (CK-2) Albumin Vitamin B12 Urine Creatinine Urine Total Protein 04/05/19 04/05/19 04/05/19 05:08 07:46 11:27 RBC Hgb Hct MCV MCH RDW Lymph % (Auto) Foster % (Auto) Lymph # Seg Neutrophils % Seg Neutrophils # POC ABG pH ABG pH POC ABG pCO2 POC ABG pO2 ABG pO2 ABG HCO3 ABG O2 Saturation ABG Base Excess ABG Hemoglobin Oxyhemoglobin Sodium Potassium Chloride Carbon Dioxide BUN Creatinine Glucose POC Glucose 202 H 233 H 241 H Hemoglobin A1c Phosphorus Magnesium AST Alkaline Phosphatase Total Creatine Kinase CK-MB (CK-2) Albumin Vitamin B12 Urine Creatinine Urine Total Protein 04/05/19 04/05/19 04/05/19 12:58 16:15 21:56 RBC Hgb Hct MCV MCH RDW Lymph % (Auto) Foster % (Auto) Lymph # Seg Neutrophils % Seg Neutrophils # POC ABG pH ABG pH POC ABG pCO2 POC ABG pO2 ABG pO2 ABG HCO3 ABG O2 Saturation ABG Base Excess ABG Hemoglobin Oxyhemoglobin Sodium 149 H Potassium Chloride Carbon Dioxide 31 H BUN 67 H Creatinine 1.9 H Glucose 230 H POC Glucose 143 H 289 H Hemoglobin A1c Phosphorus Magnesium AST Alkaline Phosphatase Total Creatine Kinase CK-MB (CK-2) Albumin Vitamin B12 Urine Creatinine Urine Total Protein 04/06/19 04/06/19 04/06/19 05:25 07:12 07:52 RBC Hgb Hct MCV MCH RDW Lymph % (Auto) Foster % (Auto) Lymph # Seg Neutrophils % Seg Neutrophils # POC ABG pH ABG pH POC ABG pCO2 POC ABG pO2 ABG pO2 ABG HCO3 ABG O2 Saturation ABG Base Excess ABG Hemoglobin Oxyhemoglobin Sodium Potassium Chloride Carbon Dioxide BUN 56 H Creatinine 1.7 H Glucose 233 H POC Glucose 234 H 225 H Hemoglobin A1c Phosphorus Magnesium AST Alkaline Phosphatase Total Creatine Kinase CK-MB (CK-2) Albumin Vitamin B12 Urine Creatinine Urine Total Protein 04/06/19 04/06/19 04/06/19 12:12 16:58 21:53 RBC Hgb Hct MCV MCH RDW Lymph % (Auto) Foster % (Auto) Lymph # Seg Neutrophils % Seg Neutrophils # POC ABG pH ABG pH POC ABG pCO2 POC ABG pO2 ABG pO2 ABG HCO3 ABG O2 Saturation ABG Base Excess ABG Hemoglobin Oxyhemoglobin Sodium Potassium Chloride Carbon Dioxide BUN Creatinine Glucose POC Glucose 275 H 255 H 234 H Hemoglobin A1c Phosphorus Magnesium AST Alkaline Phosphatase Total Creatine Kinase CK-MB (CK-2) Albumin Vitamin B12 Urine Creatinine Urine Total Protein 04/07/19 04/07/19 04/07/19 02:51 10:40 10:40 RBC 3.51 L Hgb 11.4 L Hct 34.8 L MCV 99 H MCH RDW Lymph % (Auto) 6.0 L Foster % (Auto) Lymph # 0.6 L Seg Neutrophils % 86.9 H Seg Neutrophils # 9.4 H POC ABG pH ABG pH POC ABG pCO2 POC ABG pO2 ABG pO2 ABG HCO3 ABG O2 Saturation ABG Base Excess ABG Hemoglobin Oxyhemoglobin Sodium Potassium Chloride Carbon Dioxide 34 H BUN 50 H Creatinine Glucose 298 H POC Glucose 219 H Hemoglobin A1c Phosphorus Magnesium AST Alkaline Phosphatase Total Creatine Kinase CK-MB (CK-2) Albumin Vitamin B12 Urine Creatinine Urine Total Protein 04/07/19 11:53 RBC Hgb Hct MCV MCH RDW Lymph % (Auto) Foster % (Auto) Lymph # Seg Neutrophils % Seg Neutrophils # POC ABG pH ABG pH POC ABG pCO2 POC ABG pO2 ABG pO2 ABG HCO3 ABG O2 Saturation ABG Base Excess ABG Hemoglobin Oxyhemoglobin Sodium Potassium Chloride Carbon Dioxide BUN Creatinine Glucose POC Glucose 232 H Hemoglobin A1c Phosphorus Magnesium AST Alkaline Phosphatase Total Creatine Kinase CK-MB (CK-2) Albumin Vitamin B12 Urine Creatinine Urine Total Protein Chest x-ray: report reviewed, image reviewed
[2019-04-07] MEDS: HALDOL IM PRN (20:22)
[2019-04-08] MEDS: DUONEB *Not for PRN Use IH SCH ×6 (00:14→20:22)
[2019-04-08] MEDS: CARDIZEM PO SCH ×4 (01:01→18:18)
[2019-04-08] MEDS: HumaLOG SUB-Q SCH ×8 (02:23→23:56)
[2019-04-08] MEDS: HALDOL IM PRN ×3 (03:00→21:42)
[2019-04-08] MEDS: D50W (25GM) Syringe IV PRN (05:46)
[2019-04-08] MEDS: NACL 0.45% 1000 ML 1,000 ML IV SCH ×2 (06:05→10:37)
[2019-04-08] MEDS: TESSALON PERLES PO SCH ×3 (06:05→21:42)
[2019-04-08] MEDS: PULMICORT IH SCH ×3 (08:06→20:25)
[2019-04-08 08:07] LABS: Calcium 8.8 mg/dL (8.4-10.2)
--- NOTE | 2019-04-08 08:29 | Progress Note ---
Assessment and Plan Assessment and plan: 58M who pw sob -Acute metabolic encephalopathy likely due to etoh, and getting high dose ativan dc ativan for now, patient hasn't had a drink in over a week haldol prn, olanzapine prn, MR brain, MH consult -Acute and chronic respiratory failure secondary to COPD exacerbation taper steroids per pulmonology -afib with rvr and hypercoaguable state mgt per cardiology, rate control improved, cont eliquis -Acute renal failure due to ATN nephrology following, improving Cr down to 1.7 -Hyperkalemia - was medically rx and improved -Hypernatremia Improved, change IVF to 1/4NS -Hypokalemia supplemented Metabolic acidosis - sp bicarbonate drip, resolved -Polysubstance abuse/etoh withdrawal -uds pos for amphetamines, per Martinez, no documented hx of amphetamine abuse -he was rx with [facility] protocol for etoh abuse, ativan now dc -Type 2 diabetes mellitus with persistent hyperglycemia - Continue insulin coverage DVT prophylaxis - On heparin DIspo; snf, per brother he lives with a room-mate and drinks heavily every day History Interval history: RN states that he was agitated, pulling lines and was pulling his pubic hair no fever, no seizure no sob, no cp, no vomiting Hospitalist Physical - Constitutional Vitals: Temp Pulse Resp BP Pulse Ox 98.1 F 78 20 144/72 94 04/08/19 04:30 04/08/19 08:09 04/08/19 08:09 04/08/19 05:24 04/08/19 08:09 General appearance: Present: no acute distress, well-nourished - EENT Eyes: Present: PERRL ENT: hearing intact - Neck Neck: Present: supple - Respiratory Respiratory effort: normal Respiratory: bilateral: CTA - Cardiovascular Rhythm: regular Heart Sounds: Present: S1 & S2 - Extremities Extremities: no ischemia - Abdominal General gastrointestinal: soft, non-tender - Integumentary Integumentary: Present: clear, warm - Psychiatric Psychiatric: no appropriate mood/affect, no intact judgment & insight - Neurologic Neurologic: CNII-XII intact, moves all extremities Results - Labs CBC & Chem 7: 04/07/19 10:40 04/08/19 07:19 Labs: Laboratory Last Values WBC 10.8 K/mm3 (4.5-11.0) 04/07/19 10:40 RBC 3.51 M/mm3 (3.65-5.03) L 04/07/19 10:40 Hgb 11.4 gm/dl (11.8-15.2) L 04/07/19 10:40 Hct 34.8 % (35.5-45.6) L 04/07/19 10:40 MCV 99 fl (84-94) H 04/07/19 10:40 MCH 32 pg (28-32) 04/07/19 10:40 MCHC 33 % (32-34) 04/07/19 10:40 RDW 14.8 % (13.2-15.2) 04/07/19 10:40 Plt Count 189 K/mm3 (140-440) 04/07/19 10:40 Lymph % (Auto) 6.0 % (13.4-35.0) L 04/07/19 10:40 [place] % (Auto) 7.0 % (0.0-7.3) 04/07/19 10:40 Eos % (Auto) 0.0 % (0.0-4.3) 04/07/19 10:40 Baso % (Auto) 0.1 % (0.0-1.8) 04/07/19 10:40 Lymph # 0.6 K/mm3 (1.2-5.4) L 04/07/19 10:40 [place] # 0.8 K/mm3 (0.0-0.8) 04/07/19 10:40 Eos # 0.0 K/mm3 (0.0-0.4) 04/07/19 10:40 Baso # 0.0 K/mm3 (0.0-0.1) 04/07/19 10:40 Seg Neutrophils % 86.9 % (40.0-70.0) H 04/07/19 10:40 Seg Neutrophils # 9.4 K/mm3 (1.8-7.7) H 04/07/19 10:40 POC ABG pH 7.827 (7.35-7.45) H 04/02/19 03:09 ABG pH 7.435 pH Units (7.350-7.450) 04/02/19 14:45 POC ABG pCO2 50.5 (35-45) H 03/30/19 05:58 ABG pCO2 52.3 mm Hg 04/02/19 14:45 POC ABG pO2 157 (80-105) H 04/02/19 03:09 ABG pO2 73.3 mm Hg (80.0-90.0) L 04/02/19 14:45 POC ABG HCO3 30.3 (22-26 mml/L) 04/02/19 03:09 ABG HCO3 34.3 mmol/L (20.0-26.0) H 04/02/19 14:45 POC ABG Total CO2 31 (23-27mmol/L) 04/02/19 03:09 POC ABG O2 Sat 100 04/02/19 03:09 ABG O2 Saturation 95.3 % (95.0-99.0) 04/02/19 14:45 ABG O2 Content 14.7 (0.0-44) 04/02/19 14:45 POC ABG Base Excess 12 ((-2) - (+3)mmol/L) 04/02/19 03:09 ABG Base Excess 8.7 mmol/L (-2.0-3.0) H 04/02/19 14:45 ABG Hemoglobin 11.1 gm/dl (14.0-18.0) L 04/02/19 14:45 ABG Carboxyhemoglobin 1.3 % (0.0-5.0) 04/02/19 14:45 ABG Methemoglobin 0.5 % (0.0-1.5) 04/02/19 14:45 93.5 % (95.0-99.0) L 04/02/19 14:45 32 % 04/02/19 14:45 Sodium 149 mmol/L (137-145) H 04/08/19 07:19 Potassium 3.5 mmol/L (3.6-5.0) L 04/08/19 07:19 Chloride 105.6 mmol/L (98-107) 04/08/19 07:19 Carbon Dioxide 34 mmol/L (22-30) H 04/08/19 07:19 13 mmol/L 04/08/19 07:19 BUN 40 mg/dL (9-20) H 04/08/19 07:19 1.4 mg/dL (0.8-1.5) 04/08/19 07:19 Estimated GFR 52 ml/min 04/08/19 07:19 29 % 04/08/19 07:19 Glucose 91 mg/dL (75-100) 04/08/19 07:19 POC Glucose 129 (70-105) H 04/08/19 06:19 6.4 % (4-6) H 03/29/19 23:37 342 Mosm/kg 04/04/19 14:26 Lactic Acid 1.00 mmol/L (0.7-2.0) 03/29/19 13:18 Calcium 8.8 mg/dL (8.4-10.2) 04/08/19 07:19 Phosphorus 3.20 mg/dL (2.5-4.5) 04/07/19 10:40 Magnesium 2.20 mg/dL (1.7-2.3) 04/07/19 10:40 0.50 mg/dL (0.1-1.2) 04/03/19 05:48 0.2 mg/dL (0-0.2) 04/03/19 05:48 0.3 mg/dL 04/03/19 05:48 AST 33 units/L (5-40) 04/03/19 05:48 ALT 31 units/L (7-56) 04/03/19 05:48 109 units/L (35-129) 04/03/19 05:48 53.0 umol/L (25-60) 04/03/19 21:00 2408 units/L (55-170) H 03/29/19 13:18 CK-MB (CK-2) 17.6 ng/mL (0.0-4.0) H 03/29/19 13:18 CK-MB (CK-2) Rel Index 0.7 (0-4) 03/29/19 13:18 < 0.010 ng/mL (0.00-0.029) 03/31/19 08:43 6.9 g/dL (6.3-8.2) 04/03/19 05:48 3.6 g/dL (3.9-5) L 04/03/19 05:48 1.1 % 04/03/19 05:48 Vitamin B12 1568 pg/mL (211-911) H 04/03/19 21:00 TSH 1.490 mlU/mL (0.270-4.200) 04/03/19 21:00 Free T4 0.92 ng/dL (0.76-1.46) 04/02/19 13:20 Yellow (Yellow) 03/29/19 12:29 Slightly-cloudy (Clear) 03/29/19 12:29 5.0 (5.0-7.0) 03/29/19 12:29 Ur Specific Neche 1.017 (1.003-1.030) 03/29/19 12:29 <15 mg/dl mg/dL (Negative) 03/29/19 12:29 50 mg/dL (Negative) 03/29/19 12:29 Tr mg/dL (Negative) 03/29/19 12:29 Sm (Negative) 03/29/19 12:29 Neg (Negative) 03/29/19 12:29 Neg (Negative) 03/29/19 12:29 < 2.0 mg/dL (<2.0) 03/29/19 12:29 Ur Leukocyte Esterase Neg (Negative) 03/29/19 12:29 3.0 /HPF (0.0-6.0) 03/29/19 12:29 1.0 /HPF (0.0-6.0) 03/29/19 12:29 Few /HPF 03/29/19 12:29 None seen (None Seen) 03/30/19 10:00 632 Mosm/kg 04/05/19 06:15 227.1 mg/dL (0.1-20.0) H 03/30/19 10:00 230.8 mg/dL (0.1-20.0) H 03/30/19 10:00 Protein/Creatinin Ratio 0.14 03/30/19 10:00 22 mmol/L 03/30/19 10:00 31 mg/dL (5-11.8) H 03/30/19 10:00 32 mg/dL (5-11.8) H 03/30/19 10:00 Presumptive negative 03/30/19 10:00 Presumptive negative 03/30/19 10:00 Ur Barbiturates Screen Presumptive negative 03/30/19 10:00 Ur Phencyclidine Scrn Presumptive negative 03/30/19 10:00 Ur Amphetamines Screen Presumptive positive 03/30/19 10:00 U Benzodiazepines Scrn Presumptive negative 03/30/19 10:00 Presumptive negative 03/30/19 10:00 U Marijuana (THC) Screen Presumptive negative 03/30/19 10:00 Disclamer 03/30/19 10:00 Hepatitis A IgM Ab Non-reactive (NonReactive) 03/29/19 19:41 Hep Bs Antigen Non-reactive (Negative) 03/29/19 19:41 Hep B Core IgM Ab Non-reactive (NonReactive) 03/29/19 19:41 Non-reactive (NonReactive) 03/29/19 19:41 Active Medications - Current Medications Current Medications: Generic Name Dose Route Start Last Admin Trade Name Freq PRN Reason Stop Dose Admin Acetaminophen 650 mg 03/29/19 22:13 04/06/19 06:20 Tylenol PO 650 mg Q4H PRN Administration Pain MILD(1-3)/Fever >100.5/ARIAS Albuterol 2.5 mg 03/29/19 22:15 04/02/19 02:10 Proventil IH 2.5 mg Q4HRT PRN Administration Shortness Of Breath Albuterol/Ipratropium 1 ampul 04/05/19 16:00 04/08/19 08:06 Duoneb *Not For Prn Use* IH 1 ampul Q4HRT RADHA Administration Apixaban 5 mg 03/31/19 02:00 04/07/19 21:20 Eliquis PO 5 mg BID RADHA Administration Protocol Atorvastatin Calcium 40 mg 03/31/19 10:00 04/07/19 09:41 Lipitor PO 40 mg DAILY RADHA Administration Benzonatate 100 mg 03/31/19 14:00 04/08/19 06:05 Tessalon Perles PO 100 mg Q8HR RADHA Administration Budesonide 0.5 mg 04/06/19 08:00 04/08/19 08:06 Pulmicort IH 0.5 mg Q12HRT RADHA Administration Dextrose 50 ml 03/30/19 16:21 04/08/19 05:46 D50w (25gm) Syringe IV 50 ml PRN PRN Administration Hypoglycemia Diltiazem HCl 15 mg 04/01/19 13:29 Cardizem IV PRN PRN HR >150 lasting >2 minutes Diltiazem HCl 90 mg 04/06/19 11:00 04/08/19 05:24 Cardizem PO 90 mg Q6H RADHA Administration Famotidine 10 mg 03/31/19 10:00 04/07/19 21:19 Pepcid PO 10 mg BID RADHA Administration Fluoxetine HCl 10 mg 03/31/19 02:00 04/07/19 09:43 Prozac PO 10 mg QDAY RADHA Administration Guaifenesin 5 ml 03/31/19 13:07 04/01/19 21:53 Guaifenesin Dm Syrup PO 5 ml Q6H PRN Administration Cough Haloperidol 1 mg 04/07/19 18:25 Haldol PO Q6H PRN Agitation Haloperidol Lactate 5 mg 04/07/19 18:25 04/08/19 03:00 Haldol IM 5 mg Q6H PRN Administration Agitation Hydralazine HCl 10 mg 03/31/19 01:41 Apresoline IV Q4HR PRN Blood Pressure Sodium Chloride 1,000 mls @ 100 mls/hr 04/07/19 12:00 04/08/19 06:05 Nacl 0.45% 1000 Ml IV 100 mls/hr DIRECT RADHA Administration Insulin Glargine 30 units 04/01/19 11:00 04/07/19 23:48 Lantus SUB-Q 30 units BID RADHA Administration Insulin Human Lispro 0 unit 03/31/19 00:00 04/08/19 05:23 Humalog SUB-Q Not Given Q6HR [facility] Protocol Insulin Human Lispro 10 unit 04/01/19 07:30 04/07/19 18:34 Humalog SUB-Q 10 unit AC RADHA Administration Metoclopramide HCl 5 mg 03/29/19 22:13 03/30/19 20:54 Reglan IV 5 mg Q6H PRN Administration Nausea And Vomiting Metoprolol Tartrate 50 mg 04/03/19 12:00 04/07/19 22:30 Lopressor PO 50 mg BID RADHA Administration Ondansetron HCl 4 mg 03/29/19 22:13 Zofran IV Q8H PRN Nausea And Vomiting Prednisone 40 mg 04/08/19 10:00 Deltasone PO QDAY RADHA Sodium Chloride 10 ml 03/30/19 10:00 04/07/19 22:30 Sodium Chloride Flush Syringe 10 Ml IV 10 ml BID RADHA Administration Sodium Chloride 10 ml 03/29/19 22:13 04/06/19 00:11 Sodium Chloride Flush Syringe 10 Ml IV 10 ml PRN PRN Administration LINE FLUSH Nutrition/Malnutrition Assess - Dietary Evaluation Nutrition/Malnutrition Findings: Nutrition Notes Start: 03/30/19 09:51 Freq: Status: Active Protocol: Document 04/05/19 14:49 CHELA (Rec: 04/05/19 14:56 CHELA [email or web address]) Nutrition Notes Initial or Follow up Reassessment Current Diagnosis COPD,Diabetes Other Pertinent Diagnosis EtOH withdrawal, ARF, Acute metabolic encephalopathy Current Diet Renal pureed + Nepro daily Labs/Tests Reviewed Pertinent Medications D5 at 100ml/hr Height 5 ft 6 in Weight 132.5 kg [place] Body Weight (kg) 64.54 BMI 47.1 Subjective/Other Information Pt remains confused. Per sitter, pt drinks better than he eats. He has consumed 33% of meals since last assessment . Diet downgraded to pureed today. Burn Absent Trauma Absent #1 Nutrition Diagnosis Inadequate oral intake Diagnosis Progress(for reassessment Continues documentation) Is patient on ventilator? No Is Patient Ambulatory and/or Out of Bed No REE-([place]-confined to bed) 2503.380 Kcal/Kg value to use for calculation 14 Approximate Energy Requirements Using 1855 kcal/Kg Calculation Used for Recommendations Kcal/kg Additional Notes Pro needs 0.8-1g/kg adjBW: 79- 99g/day Fluid needs 1ml/kcal Nutrition Intervention Change Diet Order: Continue renal diet Add Supplement/Snack (indicate name/kcal Nepro BID /protein ) Provides kCal: 850 Provides Protein (gm) 38 Goal #1 Meet at least 75% of calorie and protein needs via PO and ONS intakes Follow-Up By: 04/08/19 Additional Comments F/U: intakes (meals/ONS), wt
[2019-04-08] MEDS: LANTUS SUB-Q SCH ×2 (10:17→23:56)
[2019-04-08] MEDS: ELIQUIS PO SCH ×2 (10:23→21:43)
[2019-04-08] MEDS: PEPCID PO SCH ×2 (10:23→21:43)
[2019-04-08] MEDS: DELTASONE PO SCH (10:23)
[2019-04-08] MEDS: PROzac PO SCH (10:23)
[2019-04-08] MEDS: TYLENOL PO PRN (10:36)
[2019-04-08] MEDS: LOPRESSOR PO SCH ×2 (10:38→21:44)
--- NOTE | 2019-04-08 11:06 | Progress Note ---
Assessment and Plan Pt remains in AFib with CVR. Convert cardizem to cardizem CD from tomorrow AM. Cont all other present cardiac management. The patient has been seen in conjunction with Dr. Varghese who agrees with the assessment and plan of care. - Patient Problems (1) Atrial fibrillation with RVR Current Visit: Yes Status: Resolved (2) Acute renal failure Current Visit: Yes Status: Acute (3) Hypernatremia Current Visit: Yes Status: Acute (4) Altered mental status Current Visit: Yes Status: Acute (5) Alcohol withdrawal Current Visit: Yes Status: Suspected (6) COPD (chronic obstructive pulmonary disease) Current Visit: Yes Status: Chronic (7) Sleep apnea Current Visit: Yes Status: Chronic (8) Obesity Current Visit: Yes Status: Chronic (9) HTN (hypertension) Current Visit: Yes Status: Chronic (10) Diabetes Current Visit: Yes Status: Chronic Subjective Date of service: 04/08/19 Principal diagnosis: Afib Interval history: pt resting in bed, awake, alert, tele reviewed - in AFib with CVR. Objective Last Vital Signs Temp 98.1 F 04/08/19 04:30 Pulse 97 H 04/08/19 08:15 Resp 20 04/08/19 08:09 BP 144/72 04/08/19 05:24 Pulse Ox 94 04/08/19 08:09 - Physical Examination General: No Apparent Distress HEENT: Positive: PERRL, Normocephaly Neck: Positive: neck supple. Negative: JVD/HJR, Bruit Cardiac: Positive: irregularly irregular, S1/S2 Lungs: Positive: Decreased Breath Sounds Neuro: Positive: Other (confused) Abdomen: Positive: Soft. Negative: Tender Skin: Positive: Clear. Negative: Rash Musculoskeletal: Normal Range of Motion Extremities: Present: +1 Edema, Other (pedal pulse intact) - Labs and Meds Comprehensive Metabolic Panel 04/07/19 04/08/19 Range/Units 10:40 07:19 Sodium 144 149 H (137-145) mmol/L Potassium 3.8 3.5 L (3.6-5.0) mmol/L Chloride 102.0 105.6 (98-107) mmol/L Carbon Dioxide 34 H 34 H (22-30) mmol/L BUN 50 H 40 H (9-20) mg/dL Creatinine 1.5 1.4 (0.8-1.5) mg/dL Glucose 298 H 91 (75-100) mg/dL Calcium 8.8 8.8 (8.4-10.2) mg/dL - Imaging and Cardiology Echo: report reviewed (03/2019: EF 55-60%, abnormal left ventricular diastolic f unction )
--- NOTE | 2019-04-08 12:07 | Progress Note ---
Assessment and Plan 58 y/o obese male with altered mental status, concern for ETOH withdrawal on CIWA and untreated HUMA and COPD. 1. Down to 40 of prednisone daily. 2. Continue scheduled duonebs and BID pulmicort 3. Blood pressure and Heart rate control, cards changing to Long acting dilt tomorrow. 4. Weight loss 5. Will continue to follow. Subjective Date of service: 04/08/19 Principal diagnosis: Afib Interval history: Patient currently off floor so not able to assess breathing or mental state this afternoon. Objective Vital Signs - 12hr 04/08/19 04/08/19 04/08/19 00:21 00:47 01:01 Temperature 97.8 F Pulse Rate 75 70 Pulse Rate [ 77 Anterior Bilateral Throughout] Respiratory 16 20 Rate Respiratory 18 Rate [Anterior Bilateral Throughout] Blood Pressure 139/83 139/83 Blood Pressure [Left] O2 Sat by Pulse 94 Oximetry 04/08/19 04/08/19 04/08/19 04:02 04:20 04:30 Temperature 98.1 F 98.1 F Pulse Rate 60 70 Pulse Rate [ 64 Anterior Bilateral Throughout] Respiratory 20 28 H 20 Rate Respiratory 22 Rate [Anterior Bilateral Throughout] Blood Pressure 146/87 Blood Pressure 144/72 [Left] O2 Sat by Pulse 100 99 Oximetry 04/08/19 04/08/19 04/08/19 05:24 08:09 08:15 Temperature Pulse Rate 70 97 H Pulse Rate [ 78 Anterior Bilateral Throughout] Respiratory Rate Respiratory 20 Rate [Anterior Bilateral Throughout] Blood Pressure 144/72 Blood Pressure [Left] O2 Sat by Pulse 94 Oximetry 04/08/19 11:01 Temperature 98.1 F Pulse Rate 91 H Pulse Rate [ Anterior Bilateral Throughout] Respiratory 24 Rate Respiratory Rate [Anterior Bilateral Throughout] Blood Pressure 125/67 Blood Pressure [Left] O2 Sat by Pulse 93 Oximetry Constitutional: other (obese, confused, agitated) Eyes: non-icteric ENT: oropharynx moist Neck: supple Ascultation: Bilateral: clear, diminished breath sounds, wheezes Percussion: Bilateral: not dull Cardiovascular: irregular rhythm (ir/ir, no mrg) Gastrointestinal: normoactive bowel sounds Integumentary: normal Extremities: no cyanosis, no edema, pink and warm Neurologic: non-focal exam Psychiatric: other (unable to assess) CBC and BMP: 04/07/19 10:40 04/08/19 07:19 ABG, PT/INR, D-dimer: ABG POC ABG pH 7.827 (7.35-7.45) H 04/02/19 03:09 ABG pH 7.435 pH Units (7.350-7.450) 04/02/19 14:45 ABG pCO2 52.3 mm Hg 04/02/19 14:45 POC ABG pO2 157 (80-105) H 04/02/19 03:09 ABG pO2 73.3 mm Hg (80.0-90.0) L 04/02/19 14:45 POC ABG HCO3 30.3 (22-26 mml/L) 04/02/19 03:09 POC ABG Total CO2 31 (23-27mmol/L) 04/02/19 03:09 POC ABG O2 Sat 100 04/02/19 03:09 ABG O2 Saturation 95.3 % (95.0-99.0) 04/02/19 14:45 Abnormal lab findings: Abnormal Labs 03/29/19 03/29/19 03/29/19 13:18 13:18 18:22 RBC 3.24 L Hgb 10.6 L Hct 33.2 L MCV 103 H MCH 33 H RDW 15.5 H Lymph % (Auto) 9.4 L [place] % (Auto) 7.8 H Lymph # 0.8 L Seg Neutrophils % 81.5 H Seg Neutrophils # POC ABG pH 7.122 L ABG pH POC ABG pCO2 45.4 H POC ABG pO2 ABG pO2 ABG HCO3 ABG O2 Saturation ABG Base Excess ABG Hemoglobin Oxyhemoglobin Sodium 132 L Potassium 6.6 H* Chloride 94.9 L Carbon Dioxide 14 L BUN 73 H Creatinine 8.6 H Glucose POC Glucose Hemoglobin A1c Phosphorus Magnesium AST 48 H Alkaline Phosphatase 136 H Total Creatine Kinase 2408 H CK-MB (CK-2) 17.6 H Albumin Vitamin B12 Urine Creatinine Urine Total Protein 03/29/19 03/30/19 03/30/19 23:37 05:58 10:00 RBC Hgb Hct MCV MCH RDW Lymph % (Auto) [place] % (Auto) Lymph # Seg Neutrophils % Seg Neutrophils # POC ABG pH 7.143 L ABG pH POC ABG pCO2 50.5 H POC ABG pO2 159 H ABG pO2 ABG HCO3 ABG O2 Saturation ABG Base Excess ABG Hemoglobin Oxyhemoglobin Sodium Potassium Chloride Carbon Dioxide BUN Creatinine Glucose POC Glucose Hemoglobin A1c 6.4 H Phosphorus Magnesium AST Alkaline Phosphatase Total Creatine Kinase CK-MB (CK-2) Albumin Vitamin B12 Urine Creatinine 227.1 H Urine Total Protein 31 H 03/30/19 03/30/19 03/30/19 10:00 10:12 10:12 RBC 3.17 L Hgb 10.5 L Hct 31.8 L MCV 100 H MCH 33 H RDW Lymph % (Auto) 8.1 L [place] % (Auto) Lymph # 0.5 L Seg Neutrophils % 88.0 H Seg Neutrophils # POC ABG pH ABG pH POC ABG pCO2 POC ABG pO2 ABG pO2 ABG HCO3 ABG O2 Saturation ABG Base Excess ABG Hemoglobin Oxyhemoglobin Sodium 132 L Potassium 6.6 H* Chloride 91.9 L Carbon Dioxide 19 L BUN 89 H Creatinine 7.2 H Glucose 302 H POC Glucose Hemoglobin A1c Phosphorus 7.50 H Magnesium AST Alkaline Phosphatase Total Creatine Kinase CK-MB (CK-2) Albumin Vitamin B12 Urine Creatinine 230.8 H Urine Total Protein 32 H 03/30/19 03/30/19 03/30/19 11:42 16:54 17:45 RBC Hgb Hct MCV MCH RDW Lymph % (Auto) [place] % (Auto) Lymph # Seg Neutrophils % Seg Neutrophils # POC ABG pH ABG pH 7.294 L POC ABG pCO2 POC ABG pO2 ABG pO2 67.1 L ABG HCO3 19.4 L ABG O2 Saturation 91.4 L ABG Base Excess -6.7 L ABG Hemoglobin 9.9 L Oxyhemoglobin 89.4 L Sodium Potassium Chloride Carbon Dioxide BUN Creatinine Glucose POC Glucose 275 H 361 H Hemoglobin A1c Phosphorus Magnesium AST Alkaline Phosphatase Total Creatine Kinase CK-MB (CK-2) Albumin Vitamin B12 Urine Creatinine Urine Total Protein 03/30/19 03/30/19 03/30/19 20:00 20:28 23:27 RBC Hgb Hct MCV MCH RDW Lymph % (Auto) [place] % (Auto) Lymph # Seg Neutrophils % Seg Neutrophils # POC ABG pH ABG pH 7.293 L POC ABG pCO2 POC ABG pO2 ABG pO2 ABG HCO3 ABG O2 Saturation ABG Base Excess -5.9 L ABG Hemoglobin 11.0 L Oxyhemoglobin 94.1 L Sodium 134 L Potassium Chloride 92.9 L Carbon Dioxide 19 L BUN 93 H Creatinine 5.5 H Glucose 374 H POC Glucose 372 H Hemoglobin A1c Phosphorus Magnesium AST Alkaline Phosphatase Total Creatine Kinase CK-MB (CK-2) Albumin Vitamin B12 Urine Creatinine Urine Total Protein 03/31/19 03/31/19 03/31/19 04:39 04:39 05:27 RBC 3.08 L Hgb 10.3 L Hct 30.6 L MCV 99 H MCH 33 H RDW Lymph % (Auto) 6.5 L [place] % (Auto) Lymph # 0.3 L Seg Neutrophils % 86.6 H Seg Neutrophils # POC ABG pH ABG pH POC ABG pCO2 POC ABG pO2 ABG pO2 ABG HCO3 ABG O2 Saturation ABG Base Excess ABG Hemoglobin Oxyhemoglobin Sodium 135 L Potassium Chloride 92.7 L Carbon Dioxide BUN 92 H Creatinine 4.5 H Glucose 344 H POC Glucose 354 H Hemoglobin A1c Phosphorus Magnesium AST Alkaline Phosphatase Total Creatine Kinase CK-MB (CK-2) Albumin Vitamin B12 Urine Creatinine Urine Total Protein 03/31/19 03/31/19 03/31/19 08:03 12:08 17:08 RBC Hgb Hct MCV MCH RDW Lymph % (Auto) [place] % (Auto) Lymph # Seg Neutrophils % Seg Neutrophils # POC ABG pH ABG pH POC ABG pCO2 POC ABG pO2 ABG pO2 ABG HCO3 ABG O2 Saturation ABG Base Excess ABG Hemoglobin Oxyhemoglobin Sodium Potassium Chloride Carbon Dioxide BUN Creatinine Glucose POC Glucose 375 H 410 H 361 H Hemoglobin A1c Phosphorus Magnesium AST Alkaline Phosphatase Total Creatine Kinase CK-MB (CK-2) Albumin Vitamin B12 Urine Creatinine Urine Total Protein 03/31/19 04/01/19 04/01/19 23:12 05:22 08:28 RBC Hgb Hct MCV MCH RDW Lymph % (Auto) [place] % (Auto) Lymph # Seg Neutrophils % Seg Neutrophils # POC ABG pH ABG pH POC ABG pCO2 POC ABG pO2 ABG pO2 ABG HCO3 ABG O2 Saturation ABG Base Excess ABG Hemoglobin Oxyhemoglobin Sodium Potassium Chloride Carbon Dioxide BUN Creatinine Glucose POC Glucose 355 H 300 H 259 H Hemoglobin A1c Phosphorus Magnesium AST Alkaline Phosphatase Total Creatine Kinase CK-MB (CK-2) Albumin Vitamin B12 Urine Creatinine Urine Total Protein 04/01/19 04/01/19 04/01/19 11:35 16:18 23:27 RBC Hgb Hct MCV MCH RDW Lymph % (Auto) [place] % (Auto) Lymph # Seg Neutrophils % Seg Neutrophils # POC ABG pH ABG pH POC ABG pCO2 POC ABG pO2 ABG pO2 ABG HCO3 ABG O2 Saturation ABG Base Excess ABG Hemoglobin Oxyhemoglobin Sodium Potassium Chloride Carbon Dioxide BUN Creatinine Glucose POC Glucose 283 H 169 H 344 H Hemoglobin A1c Phosphorus Magnesium AST Alkaline Phosphatase Total Creatine Kinase CK-MB (CK-2) Albumin Vitamin B12 Urine Creatinine Urine Total Protein 04/02/19 04/02/19 04/02/19 02:39 03:09 05:11 RBC Hgb Hct MCV MCH RDW Lymph % (Auto) [place] % (Auto) Lymph # Seg Neutrophils % Seg Neutrophils # POC ABG pH 7.827 H ABG pH POC ABG pCO2 POC ABG pO2 157 H ABG pO2 ABG HCO3 ABG O2 Saturation ABG Base Excess ABG Hemoglobin Oxyhemoglobin Sodium 149 H D Potassium 3.3 L Chloride Carbon Dioxide 35 H D BUN 78 H Creatinine 2.2 H D Glucose 185 H POC Glucose 252 H Hemoglobin A1c Phosphorus Magnesium AST Alkaline Phosphatase Total Creatine Kinase CK-MB (CK-2) Albumin Vitamin B12 Urine Creatinine Urine Total Protein 04/02/19 04/02/19 04/02/19 05:31 08:28 11:46 RBC Hgb Hct MCV MCH RDW Lymph % (Auto) [place] % (Auto) Lymph # Seg Neutrophils % Seg Neutrophils # POC ABG pH ABG pH POC ABG pCO2 POC ABG pO2 ABG pO2 ABG HCO3 ABG O2 Saturation ABG Base Excess ABG Hemoglobin Oxyhemoglobin Sodium Potassium Chloride Carbon Dioxide BUN Creatinine Glucose POC Glucose 160 H 140 H 186 H Hemoglobin A1c Phosphorus Magnesium AST Alkaline Phosphatase Total Creatine Kinase CK-MB (CK-2) Albumin Vitamin B12 Urine Creatinine Urine Total Protein 04/02/19 04/02/19 04/03/19 14:45 20:59 00:23 RBC Hgb Hct MCV MCH RDW Lymph % (Auto) [place] % (Auto) Lymph # Seg Neutrophils % Seg Neutrophils # POC ABG pH ABG pH POC ABG pCO2 POC ABG pO2 ABG pO2 73.3 L ABG HCO3 34.3 H ABG O2 Saturation ABG Base Excess 8.7 H ABG Hemoglobin 11.1 L Oxyhemoglobin 93.5 L Sodium Potassium Chloride Carbon Dioxide BUN Creatinine Glucose POC Glucose 195 H 211 H Hemoglobin A1c Phosphorus Magnesium AST Alkaline Phosphatase Total Creatine Kinase CK-MB (CK-2) Albumin Vitamin B12 Urine Creatinine Urine Total Protein 04/03/19 04/03/19 04/03/19 05:48 05:48 06:00 RBC 3.46 L Hgb 11.5 L Hct 34.8 L MCV 101 H MCH 33 H RDW 15.5 H Lymph % (Auto) 13.2 L [place] % (Auto) 8.8 H Lymph # 0.8 L Seg Neutrophils % 77.8 H Seg Neutrophils # POC ABG pH ABG pH POC ABG pCO2 POC ABG pO2 ABG pO2 ABG HCO3 ABG O2 Saturation ABG Base Excess ABG Hemoglobin Oxyhemoglobin Sodium 152 H Potassium 3.1 L Chloride Carbon Dioxide 34 H BUN 71 H Creatinine 1.8 H Glucose 128 H POC Glucose 124 H Hemoglobin A1c Phosphorus Magnesium 2.50 H AST Alkaline Phosphatase Total Creatine Kinase CK-MB (CK-2) Albumin 3.6 L Vitamin B12 Urine Creatinine Urine Total Protein 04/03/19 04/03/19 04/03/19 12:42 21:00 22:04 RBC Hgb Hct MCV MCH RDW Lymph % (Auto) [place] % (Auto) Lymph # Seg Neutrophils % Seg Neutrophils # POC ABG pH ABG pH POC ABG pCO2 POC ABG pO2 ABG pO2 ABG HCO3 ABG O2 Saturation ABG Base Excess ABG Hemoglobin Oxyhemoglobin Sodium Potassium Chloride Carbon Dioxide BUN Creatinine Glucose POC Glucose 192 H 57 L Hemoglobin A1c Phosphorus Magnesium AST Alkaline Phosphatase Total Creatine Kinase CK-MB (CK-2) Albumin Vitamin B12 1568 H Urine Creatinine Urine Total Protein 04/03/19 04/04/19 04/04/19 23:21 00:42 04:23 RBC Hgb Hct MCV MCH RDW Lymph % (Auto) [place] % (Auto) Lymph # Seg Neutrophils % Seg Neutrophils # POC ABG pH ABG pH POC ABG pCO2 POC ABG pO2 ABG pO2 ABG HCO3 ABG O2 Saturation ABG Base Excess ABG Hemoglobin Oxyhemoglobin Sodium 155 H Potassium 3.1 L Chloride 107.8 H Carbon Dioxide 34 H BUN 64 H Creatinine 1.9 H Glucose POC Glucose 69 L 63 L Hemoglobin A1c Phosphorus Magnesium AST Alkaline Phosphatase Total Creatine Kinase CK-MB (CK-2) Albumin Vitamin B12 Urine Creatinine Urine Total Protein 04/04/19 04/04/19 04/04/19 11:46 16:31 22:12 RBC Hgb Hct MCV MCH RDW Lymph % (Auto) [place] % (Auto) Lymph # Seg Neutrophils % Seg Neutrophils # POC ABG pH ABG pH POC ABG pCO2 POC ABG pO2 ABG pO2 ABG HCO3 ABG O2 Saturation ABG Base Excess ABG Hemoglobin Oxyhemoglobin Sodium Potassium Chloride Carbon Dioxide BUN Creatinine Glucose POC Glucose 111 H 174 H 229 H Hemoglobin A1c Phosphorus Magnesium AST Alkaline Phosphatase Total Creatine Kinase CK-MB (CK-2) Albumin Vitamin B12 Urine Creatinine Urine Total Protein 04/05/19 04/05/19 04/05/19 05:08 07:46 11:27 RBC Hgb Hct MCV MCH RDW Lymph % (Auto) [place] % (Auto) Lymph # Seg Neutrophils % Seg Neutrophils # POC ABG pH ABG pH POC ABG pCO2 POC ABG pO2 ABG pO2 ABG HCO3 ABG O2 Saturation ABG Base Excess ABG Hemoglobin Oxyhemoglobin Sodium Potassium Chloride Carbon Dioxide BUN Creatinine Glucose POC Glucose 202 H 233 H 241 H Hemoglobin A1c Phosphorus Magnesium AST Alkaline Phosphatase Total Creatine Kinase CK-MB (CK-2) Albumin Vitamin B12 Urine Creatinine Urine Total Protein 04/05/19 04/05/19 04/05/19 12:58 16:15 21:56 RBC Hgb Hct MCV MCH RDW Lymph % (Auto) [place] % (Auto) Lymph # Seg Neutrophils % Seg Neutrophils # POC ABG pH ABG pH POC ABG pCO2 POC ABG pO2 ABG pO2 ABG HCO3 ABG O2 Saturation ABG Base Excess ABG Hemoglobin Oxyhemoglobin Sodium 149 H Potassium Chloride Carbon Dioxide 31 H BUN 67 H Creatinine 1.9 H Glucose 230 H POC Glucose 143 H 289 H Hemoglobin A1c Phosphorus Magnesium AST Alkaline Phosphatase Total Creatine Kinase CK-MB (CK-2) Albumin Vitamin B12 Urine Creatinine Urine Total Protein 04/06/19 04/06/19 04/06/19 05:25 07:12 07:52 RBC Hgb Hct MCV MCH RDW Lymph % (Auto) [place] % (Auto) Lymph # Seg Neutrophils % Seg Neutrophils # POC ABG pH ABG pH POC ABG pCO2 POC ABG pO2 ABG pO2 ABG HCO3 ABG O2 Saturation ABG Base Excess ABG Hemoglobin Oxyhemoglobin Sodium Potassium Chloride Carbon Dioxide BUN 56 H Creatinine 1.7 H Glucose 233 H POC Glucose 234 H 225 H Hemoglobin A1c Phosphorus Magnesium AST Alkaline Phosphatase Total Creatine Kinase CK-MB (CK-2) Albumin Vitamin B12 Urine Creatinine Urine Total Protein 04/06/19 04/06/1904/06/19 12:12 16:58 21:53 RBC Hgb Hct MCV MCH RDW Lymph % (Auto) [place] % (Auto) Lymph # Seg Neutrophils % Seg Neutrophils # POC ABG pH ABG pH POC ABG pCO2 POC ABG pO2 ABG pO2 ABG HCO3 ABG O2 Saturation ABG Base Excess ABG Hemoglobin Oxyhemoglobin Sodium Potassium Chloride Carbon Dioxide BUN Creatinine Glucose POC Glucose 275 H 255 H 234 H Hemoglobin A1c Phosphorus Magnesium AST Alkaline Phosphatase Total Creatine Kinase CK-MB (CK-2) Albumin Vitamin B12 Urine Creatinine Urine Total Protein 04/07/19 04/07/19 04/07/19 02:51 10:40 10:40 RBC 3.51 L Hgb 11.4 L Hct 34.8 L MCV 99 H MCH RDW Lymph % (Auto) 6.0 L [place] % (Auto) Lymph # 0.6 L Seg Neutrophils % 86.9 H Seg Neutrophils # 9.4 H POC ABG pH ABG pH POC ABG pCO2 POC ABG pO2 ABG pO2 ABG HCO3 ABG O2 Saturation ABG Base Excess ABG Hemoglobin Oxyhemoglobin Sodium Potassium Chloride Carbon Dioxide 34 H BUN 50 H Creatinine Glucose 298 H POC Glucose 219 H Hemoglobin A1c Phosphorus Magnesium AST Alkaline Phosphatase Total Creatine Kinase CK-MB (CK-2) Albumin Vitamin B12 Urine Creatinine Urine Total Protein 04/07/19 04/07/19 04/07/19 11:53 18:38 22:33 RBC Hgb Hct MCV MCH RDW Lymph % (Auto) [place] % (Auto) Lymph # Seg Neutrophils % Seg Neutrophils # POC ABG pH ABG pH POC ABG pCO2 POC ABG pO2 ABG pO2 ABG HCO3 ABG O2 Saturation ABG Base Excess ABG Hemoglobin Oxyhemoglobin Sodium Potassium Chloride Carbon Dioxide BUN Creatinine Glucose POC Glucose 232 H 175 H 130 H Hemoglobin A1c Phosphorus Magnesium AST Alkaline Phosphatase Total Creatine Kinase CK-MB (CK-2) Albumin Vitamin B12 Urine Creatinine Urine Total Protein 04/08/19 04/08/19 04/08/19 05:42 06:19 07:19 RBC Hgb Hct MCV MCH RDW Lymph % (Auto) [place] % (Auto) Lymph # Seg Neutrophils % Seg Neutrophils # POC ABG pH ABG pH POC ABG pCO2 POC ABG pO2 ABG pO2 ABG HCO3 ABG O2 Saturation ABG Base Excess ABG Hemoglobin Oxyhemoglobin Sodium 149 H Potassium 3.5 L Chloride Carbon Dioxide 34 H BUN 40 H Creatinine Glucose POC Glucose 53 L 129 H Hemoglobin A1c Phosphorus Magnesium AST Alkaline Phosphatase Total Creatine Kinase CK-MB (CK-2) Albumin Vitamin B12 Urine Creatinine Urine Total Protein 04/08/19 11:15 RBC Hgb Hct MCV MCH RDW Lymph % (Auto) [place] % (Auto) Lymph # Seg Neutrophils % Seg Neutrophils # POC ABG pH ABG pH POC ABG pCO2 POC ABG pO2 ABG pO2 ABG HCO3 ABG O2 Saturation ABG Base Excess ABG Hemoglobin Oxyhemoglobin Sodium Potassium Chloride Carbon Dioxide BUN Creatinine Glucose POC Glucose 223 H Hemoglobin A1c Phosphorus Magnesium AST Alkaline Phosphatase Total Creatine Kinase CK-MB (CK-2) Albumin Vitamin B12 Urine Creatinine Urine Total Protein
[2019-04-08] MEDS: STERILE WATER IV SCH (13:11)
[2019-04-08] MEDS: NACL IV SCH (13:11)
[2019-04-08] MEDS: SODIUM CHLORIDE FLUSH SYRINGE 10 ML IV SCH ×2 (13:22→21:43)
--- NOTE | 2019-04-08 14:26 | Progress Note ---
Assessment and Plan Acute Renal Failure secondary to Prerenal vs ATN from Hypotension, no obstruction: Hyperkalemia: High Anion Gap Metabolic Acidosis: Hyperphosphatemia COPD Exacerbation HUMA Hypernatremia -Renal function reviewed, SCr level was 1.4 today, yesterday's SCr level was 1.5 -No acute indication for initiation of HD -On 08/17 NS infusion at 100 ml/hr -Free water intake as tolerated for hypernatremia -Assess need for HD on daily basis -Renal US showed no hydronephrosis -Urine eosinophils negative -Rivers Catheter: No -Intake= 1000 ml Output= 1250 ml ( Net= -250 ml) -Renal plan d/w Dr Olivarez Subjective Date of service: 04/08/19 Principal diagnosis: Afib Interval history: Pt seen in bed, awake, confused, sitter at bedside, pt denies shortness of breath, no specific complaints voiced. Objective - Vital Signs Vital signs: Vital Signs - 12hr 04/08/19 04/08/19 04/08/19 04:02 04:20 04:30 Temperature 98.1 F 98.1 F Pulse Rate 60 70 Pulse Rate [ 64 Anterior Bilateral Throughout] Pulse Rate [ Apical] Respiratory 20 28 H 20 Rate Respiratory 22 Rate [Anterior Bilateral Throughout] Blood Pressure 146/87 Blood Pressure 144/72 [Left] O2 Sat by Pulse 100 99 Oximetry 04/08/19 04/08/19 04/08/19 05:24 08:09 08:15 Temperature Pulse Rate 70 97 H Pulse Rate [ 70 Anterior Bilateral Throughout] Pulse Rate [ Apical] Respiratory Rate Respiratory 20 Rate [Anterior Bilateral Throughout] Blood Pressure 144/72 Blood Pressure [Left] O2 Sat by Pulse 94 Oximetry 04/08/19 04/08/19 04/08/19 10:00 11:01 14:04 Temperature 98.1 F Pulse Rate 91 H Pulse Rate [ 58 L Anterior Bilateral Throughout] Pulse Rate [ 97 H Apical] Respiratory 20 24 Rate Respiratory 22 Rate [Anterior Bilateral Throughout] Blood Pressure 125/67 Blood Pressure [Left] O2 Sat by Pulse 93 Oximetry - General Appearance General appearance: other (awake) EENT: ATNC Neck: no JVD Respiratory: Present: Decreased Breath Sounds Cardiology: regular, S1S2 Gastrointestinal: normoactive bowel sounds, no tenderness Integumentary: warm and dry Neurologic: confused (awake, oriented to self and time, but not place, follows simple commands) Musculoskeletal: other (trace edema to BLE) - Lab 04/07/19 10:40 04/08/19 07:19 Most recent lab results ABG pH 7.435 pH Units (7.350-7.450) 04/02/19 14:45 ABG pCO2 52.3 mm Hg 04/02/19 14:45 ABG pO2 73.3 mm Hg (80.0-90.0) L 04/02/19 14:45 ABG HCO3 34.3 mmol/L (20.0-26.0) H 04/02/19 14:45 ABG O2 Saturation 95.3 % (95.0-99.0) 04/02/19 14:45 Calcium 8.8 mg/dL (8.4-10.2) 04/08/19 07:19 Phosphorus 3.20 mg/dL (2.5-4.5) 04/07/19 10:40 Magnesium 2.20 mg/dL (1.7-2.3) 04/07/19 10:40 227.1 mg/dL (0.1-20.0) H 03/30/19 10:00 230.8 mg/dL (0.1-20.0) H 03/30/19 10:00 22 mmol/L 03/30/19 10:00 31 mg/dL (5-11.8) H 03/30/19 10:00 32 mg/dL (5-11.8) H 03/30/19 10:00 Medications & Allergies - Medications Allergies/Adverse Reactions: Allergies No Known Allergies Allergy (Unverified 08/21/14 12:00) Home Medications: Home Medications Medication Instructions Recorded Confirmed Last Taken Type ALBUTEROL Inhaler (OR & NICU) 2 puff IH QID PRN 03/29/19 03/29/19 03/29/19 History [Proair] Apixaban [Eliquis] 5 mg PO BID 03/29/19 03/29/19 03/27/19 History AtorvaSTATin [Lipitor] 40 mg PO DAILY 03/29/19 03/29/19 03/27/19 History FLUoxetine HCL [Prozac] 10 mg PO QDAY 03/29/19 03/29/19 03/27/19 History Glimepiride [Amaryl] 2 mg PO BID 03/29/19 03/29/19 03/27/19 History Lisinopril [Zestril] 5 mg PO QDAY 03/29/19 03/29/19 03/27/19 History Metformin HCl [metFORMIN] 1,000 mg PO BID 03/29/19 03/29/19 03/29/19 History Pantoprazole [Protonix] 40 mg PO QDAY 03/29/19 03/29/19 03/27/19 History Tiotropium [place] [Spiriva 4 gm IH QDAY 03/29/19 03/29/19 Unknown History Respimat] Active Medications: Generic Name Dose Route Start Last Admin Trade Name Freq PRN Reason Stop Dose Admin Acetaminophen 650 mg 03/29/19 22:13 04/08/19 10:36 Tylenol PO 650 mg Q4H PRN Administration Pain MILD(1-3)/Fever >100.5/ARIAS Albuterol 2.5 mg 03/29/19 22:15 04/02/19 02:10 Proventil IH 2.5 mg Q4HRT PRN Administration Shortness Of Breath Albuterol/Ipratropium 1 ampul 04/05/19 16:00 04/08/19 14:01 Duoneb *Not For Prn Use* IH 1 ampul Q4HRT RADHA Administration Apixaban 5 mg 03/31/19 02:00 04/08/19 10:23 Eliquis PO 5 mg BID RADHA Administration Protocol Atorvastatin Calcium 40 mg 03/31/19 10:00 04/08/19 10:23 Lipitor PO 40 mg DAILY RADHA Administration Benzonatate 100 mg 03/31/19 14:00 04/08/19 13:30 Tessalon Perles PO 100 mg Q8HR RADHA Administration Budesonide 0.5 mg 04/06/19 08:00 04/08/19 08:06 Pulmicort IH 0.5 mg Q12HRT RADHA Administration Dextrose 50 ml 03/30/19 16:21 04/08/19 05:46 D50w (25gm) Syringe IV 50 ml PRN PRN Administration Hypoglycemia Diltiazem HCl 90 mg 04/06/19 11:00 04/08/19 13:30 Cardizem PO 04/09/19 01:00 90 mg Q6H RADHA Administration Diltiazem HCl 300 mg 04/09/19 10:00 Cardizem Cd PO QDAY RADHA Famotidine 10 mg 03/31/19 10:00 04/08/19 10:23 Pepcid PO 10 mg BID RADHA Administration Fluoxetine HCl 10 mg 03/31/19 02:00 04/08/19 10:23 Prozac PO 10 mg QDAY RADHA Administration Guaifenesin 5 ml 03/31/19 13:07 04/08/19 10:37 Guaifenesin Dm Syrup PO 5 ml Q6H PRN Administration Cough Haloperidol 1 mg 04/07/19 18:25 Haldol PO Q6H PRN Agitation Haloperidol Lactate 5 mg 04/07/19 18:25 04/08/19 10:23 Haldol IM 5 mg Q6H PRN Administration Agitation Sodium Chloride 38.48 meq/ 1,000 mls @ 100 mls/hr 04/08/19 09:30 04/08/19 13:11 Sterile Water IV 100 mls/hr DIRECT RADHA Administration Insulin Glargine 30 units 04/01/19 11:00 04/08/19 10:17 Lantus SUB-Q Not Given BID [facility] Insulin Human Lispro 0 unit 03/31/19 00:00 04/08/19 13:22 Humalog SUB-Q Not Given Q6HR [facility] Protocol Insulin Human Lispro 10 unit 04/01/19 07:30 04/08/19 13:19 Humalog SUB-Q 10 unit AC RADHA Administration Metoclopramide HCl 5 mg 03/29/19 22:13 03/30/19 20:54 Reglan IV 5 mg Q6H PRN Administration Nausea And Vomiting Metoprolol Tartrate 50 mg 04/03/19 12:00 04/08/19 10:38 Lopressor PO 50 mg BID RADHA Administration Ondansetron HCl 4 mg 03/29/19 22:13 Zofran IV Q8H PRN Nausea And Vomiting Prednisone 40 mg 04/08/19 10:00 04/08/19 10:23 Deltasone PO 40 mg QDAY RADHA Administration Sodium Chloride 10 ml 03/30/19 10:00 04/08/19 13:22 Sodium Chloride Flush Syringe 10 Ml IV 10 ml BID RADHA Administration Sodium Chloride 10 ml 03/29/19 22:13 04/06/19 00:11 Sodium Chloride Flush Syringe 10 Ml IV 10 ml PRN PRN Administration LINE FLUSH
--- NOTE | 2019-04-08 16:06 | Magnetic Resonance Report ---
MRI BRAIN WITHOUT CONTRAST INDICATION / CLINICAL INFORMATION: Altered mental status, cerebrovascular accident.. TECHNIQUE: Multiplanar, multisequence MR images of the brain were obtained. COMPARISON: None available. FINDINGS: BRAIN / INTRACRANIAL CONTENTS: The study is significantly limited by motion. Furthermore, the patient was unable to complete the exam. The diffusion imaging reveals no gross evidence of acute territoria l infarct at. There is prominence of the ventricular system which may be slightly portion to the degr ee of cerebral atrophy. The findings correlate with the earlier CT of 04/03/2019. CRANIOCERVICAL JUNCTION: No significant abnormality. VASCULAR FLOW-VOIDS: The vascular structures visualized on this exam given the degree of motion. ORBITS: Similarly, the orbits are obscured by the motion. SINUSES / MASTOIDS: The visualized orbits appear pneumatized. ADDITIONAL FINDINGS: None. IMPRESSION: 1. The study is significantly limited by motion as described at. However, there is relative prominenc e of the ventricular system as described which correlates with the earlier CT of 04/03/2019. 2. There is no evidence of recent infarction. Signer Name: Ki Albarado MD Signed: 04/08/2019 4:01 PM Workstation Name: [id number]
[2019-04-08] MEDS: HALDOL PO PRN (18:19)
[2019-04-09] MEDS: CARDIZEM PO SCH (01:35)
[2019-04-09] MEDS: DUONEB *Not for PRN Use IH SCH ×6 (01:52→20:15)
[2019-04-09] MEDS: TESSALON PERLES PO SCH ×3 (05:27→22:53)
[2019-04-09] MEDS: HALDOL PO PRN ×2 (05:27→22:53)
[2019-04-09] MEDS: HumaLOG SUB-Q SCH ×7 (05:41→23:21)
[2019-04-09] MEDS: PULMICORT IH SCH ×2 (08:24→20:14)
[2019-04-09] MEDS: HALDOL IM PRN (08:47)
--- NOTE | 2019-04-09 09:50 | Progress Note ---
Assessment and Plan 58 y/o obese male with altered mental status, concern for ETOH withdrawal on CIWA and untreated HUMA and COPD. 1. Down to 40 of prednisone daily. Will drop to 20 tomorrow 2. Continue scheduled duonebs and BID pulmicort 3. Blood pressure and Heart rate control, cards changing to Long acting dilt tomorrow. 4. Weight loss 5. Will continue to follow. Subjective Date of service: 04/09/19 Principal diagnosis: Afib Interval history: Patient went down for MRI but unable to complete secondary to pain and need for defecation. Objective Vital Signs - 12hr 04/08/19 04/09/19 04/09/19 22:00 01:09 01:35 Temperature 97.3 F L Pulse Rate 74 74 Pulse Rate [ Anterior Bilateral Throughout] Respiratory 20 19 Rate Respiratory Rate [Anterior Bilateral Throughout] Blood Pressure 132/82 132/82 O2 Sat by Pulse 97 Oximetry 04/09/19 04/09/19 04/09/19 03:19 08:25 08:27 Temperature Pulse Rate 80 Pulse Rate [ 85 Anterior Bilateral Throughout] Respiratory 16 Rate Respiratory 18 Rate [Anterior Bilateral Throughout] Blood Pressure O2 Sat by Pulse 92 96 Oximetry Constitutional: other (obese, confused, agitated) Eyes: non-icteric ENT: oropharynx moist Neck: supple Ascultation: Bilateral: clear, diminished breath sounds, wheezes Percussion: Bilateral: not dull Cardiovascular: irregular rhythm (ir/ir, no mrg) Gastrointestinal: normoactive bowel sounds Integumentary: normal Extremities: no cyanosis, no edema, pink and warm Neurologic: non-focal exam Psychiatric: other (unable to assess) CBC and BMP: 04/10/19 09:10 04/10/19 09:10 ABG, PT/INR, D-dimer: ABG POC ABG pH 7.827 (7.35-7.45) H 04/02/19 03:09 ABG pH 7.435 pH Units (7.350-7.450) 04/02/19 14:45 ABG pCO2 52.3 mm Hg 04/02/19 14:45 POC ABG pO2 157 (80-105) H 04/02/19 03:09 ABG pO2 73.3 mm Hg (80.0-90.0) L 04/02/19 14:45 POC ABG HCO3 30.3 (22-26 mml/L) 04/02/19 03:09 POC ABG Total CO2 31 (23-27mmol/L) 04/02/19 03:09 POC ABG O2 Sat 100 04/02/19 03:09 ABG O2 Saturation 95.3 % (95.0-99.0) 04/02/19 14:45 Abnormal lab findings: Abnormal Labs 03/29/19 03/29/19 03/29/19 13:18 13:18 18:22 RBC 3.24 L Hgb 10.6 L Hct 33.2 L MCV 103 H MCH 33 H RDW 15.5 H Lymph % (Auto) 9.4 L Emmons % (Auto) 7.8 H Lymph # 0.8 L Seg Neutrophils % 81.5 H Seg Neutrophils # POC ABG pH 7.122 L ABG pH POC ABG pCO2 45.4 H POC ABG pO2 ABG pO2 ABG HCO3 ABG O2 Saturation ABG Base Excess ABG Hemoglobin Oxyhemoglobin Sodium 132 L Potassium 6.6 H* Chloride 94.9 L Carbon Dioxide 14 L BUN 73 H Creatinine 8.6 H Glucose POC Glucose Hemoglobin A1c Phosphorus Magnesium AST 48 H Alkaline Phosphatase 136 H Total Creatine Kinase 2408 H CK-MB (CK-2) 17.6 H Albumin Vitamin B12 Urine Creatinine Urine Total Protein 03/29/19 03/30/19 03/30/19 23:37 05:58 10:00 RBC Hgb Hct MCV MCH RDW Lymph % (Auto) Emmons % (Auto) Lymph # Seg Neutrophils % Seg Neutrophils # POC ABG pH 7.143 L ABG pH POC ABG pCO2 50.5 H POC ABG pO2 159 H ABG pO2 ABG HCO3 ABG O2 Saturation ABG Base Excess ABG Hemoglobin Oxyhemoglobin Sodium Potassium Chloride Carbon Dioxide BUN Creatinine Glucose POC Glucose Hemoglobin A1c 6.4 H Phosphorus Magnesium AST Alkaline Phosphatase Total Creatine Kinase CK-MB (CK-2) Albumin Vitamin B12 Urine Creatinine 227.1 H Urine Total Protein 31 H 03/30/19 03/30/19 03/30/19 10:00 10:12 10:12 RBC 3.17 L Hgb 10.5 L Hct 31.8 L MCV 100 H MCH 33 H RDW Lymph % (Auto) 8.1 L Emmons % (Auto) Lymph # 0.5 L Seg Neutrophils % 88.0 H Seg Neutrophils # POC ABG pH ABG pH POC ABG pCO2 POC ABG pO2 ABG pO2 ABG HCO3 ABG O2 Saturation ABG Base Excess ABG Hemoglobin Oxyhemoglobin Sodium 132 L Potassium 6.6 H* Chloride 91.9 L Carbon Dioxide 19 L BUN 89 H Creatinine 7.2 H Glucose 302 H POC Glucose Hemoglobin A1c Phosphorus 7.50 H Magnesium AST Alkaline Phosphatase Total Creatine Kinase CK-MB (CK-2) Albumin Vitamin B12 Urine Creatinine 230.8 H Urine Total Protein 32 H 03/30/19 03/30/19 03/30/19 11:42 16:54 17:45 RBC Hgb Hct MCV MCH RDW Lymph % (Auto) Emmons % (Auto) Lymph # Seg Neutrophils % Seg Neutrophils # POC ABG pH ABG pH 7.294 L POC ABG pCO2 POC ABG pO2 ABG pO2 67.1 L ABG HCO3 19.4 L ABG O2 Saturation 91.4 L ABG Base Excess -6.7 L ABG Hemoglobin 9.9 L Oxyhemoglobin 89.4 L Sodium Potassium Chloride Carbon Dioxide BUN Creatinine Glucose POC Glucose 275 H 361 H Hemoglobin A1c Phosphorus Magnesium AST Alkaline Phosphatase Total Creatine Kinase CK-MB (CK-2) Albumin Vitamin B12 Urine Creatinine Urine Total Protein 03/30/19 03/30/19 03/30/19 20:00 20:28 23:27 RBC Hgb Hct MCV MCH RDW Lymph % (Auto) Emmons % (Auto) Lymph # Seg Neutrophils % Seg Neutrophils # POC ABG pH ABG pH 7.293 L POC ABG pCO2 POC ABG pO2 ABG pO2 ABG HCO3 ABG O2 Saturation ABG Base Excess -5.9 L ABG Hemoglobin 11.0 L Oxyhemoglobin 94.1 L Sodium 134 L Potassium Chloride 92.9 L Carbon Dioxide 19 L BUN 93 H Creatinine 5.5 H Glucose 374 H POC Glucose 372 H Hemoglobin A1c Phosphorus Magnesium AST Alkaline Phosphatase Total Creatine Kinase CK-MB (CK-2) Albumin Vitamin B12 Urine Creatinine Urine Total Protein 03/31/19 03/31/19 03/31/19 04:39 04:39 05:27 RBC 3.08 L Hgb 10.3 L Hct 30.6 L MCV 99 H MCH 33 H RDW Lymph % (Auto) 6.5 L Emmons % (Auto) Lymph # 0.3 L Seg Neutrophils % 86.6 H Seg Neutrophils # POC ABG pH ABG pH POC ABG pCO2 POC ABG pO2 ABG pO2 ABG HCO3 ABG O2 Saturation ABG Base Excess ABG Hemoglobin Oxyhemoglobin Sodium 135 L Potassium Chloride 92.7 L Carbon Dioxide BUN 92 H Creatinine 4.5 H Glucose 344 H POC Glucose 354 H Hemoglobin A1c Phosphorus Magnesium AST Alkaline Phosphatase Total Creatine Kinase CK-MB (CK-2) Albumin Vitamin B12 Urine Creatinine Urine Total Protein 03/31/19 03/31/19 03/31/19 08:03 12:08 17:08 RBC Hgb Hct MCV MCH RDW Lymph % (Auto) Emmons % (Auto) Lymph # Seg Neutrophils % Seg Neutrophils # POC ABG pH ABG pH POC ABG pCO2 POC ABG pO2 ABG pO2 ABG HCO3 ABG O2 Saturation ABG Base Excess ABG Hemoglobin Oxyhemoglobin Sodium Potassium Chloride Carbon Dioxide BUN Creatinine Glucose POC Glucose 375 H 410 H 361 H Hemoglobin A1c Phosphorus Magnesium AST Alkaline Phosphatase Total Creatine Kinase CK-MB (CK-2) Albumin Vitamin B12 Urine Creatinine Urine Total Protein 03/31/19 04/01/19 04/01/19 23:12 05:22 08:28 RBC Hgb Hct MCV MCH RDW Lymph % (Auto) Emmons % (Auto) Lymph # Seg Neutrophils % Seg Neutrophils # POC ABG pH ABG pH POC ABG pCO2 POC ABG pO2 ABG pO2 ABG HCO3 ABG O2 Saturation ABG Base Excess ABG Hemoglobin Oxyhemoglobin Sodium Potassium Chloride Carbon Dioxide BUN Creatinine Glucose POC Glucose 355 H 300 H 259 H Hemoglobin A1c Phosphorus Magnesium AST Alkaline Phosphatase Total Creatine Kinase CK-MB (CK-2) Albumin Vitamin B12 Urine Creatinine Urine Total Protein 04/01/19 04/01/19 04/01/19 11:35 16:18 23:27 RBC Hgb Hct MCV MCH RDW Lymph % (Auto) Emmons % (Auto) Lymph # Seg Neutrophils % Seg Neutrophils # POC ABG pH ABG pH POC ABG pCO2 POC ABG pO2 ABG pO2 ABG HCO3 ABG O2 Saturation ABG Base Excess ABG Hemoglobin Oxyhemoglobin Sodium Potassium Chloride Carbon Dioxide BUN Creatinine Glucose POC Glucose 283 H 169 H 344 H Hemoglobin A1c Phosphorus Magnesium AST Alkaline Phosphatase Total Creatine Kinase CK-MB (CK-2) Albumin Vitamin B12 Urine Creatinine Urine Total Protein 04/02/19 04/02/19 04/02/19 02:39 03:09 05:11 RBC Hgb Hct MCV MCH RDW Lymph % (Auto) Emmons % (Auto) Lymph # Seg Neutrophils % Seg Neutrophils # POC ABG pH 7.827 H ABG pH POC ABG pCO2 POC ABG pO2 157 H ABG pO2 ABG HCO3 ABG O2 Saturation ABG Base Excess ABG Hemoglobin Oxyhemoglobin Sodium 149 H D Potassium 3.3 L Chloride Carbon Dioxide 35 H D BUN 78 H Creatinine 2.2 H D Glucose 185 H POC Glucose 252 H Hemoglobin A1c Phosphorus Magnesium AST Alkaline Phosphatase Total Creatine Kinase CK-MB (CK-2) Albumin Vitamin B12 Urine Creatinine Urine Total Protein 04/02/19 04/02/19 04/02/19 05:31 08:28 11:46 RBC Hgb Hct MCV MCH RDW Lymph % (Auto) Emmons % (Auto) Lymph # Seg Neutrophils % Seg Neutrophils # POC ABG pH ABG pH POC ABG pCO2 POC ABG pO2 ABG pO2 ABG HCO3 ABG O2 Saturation ABG Base Excess ABG Hemoglobin Oxyhemoglobin Sodium Potassium Chloride Carbon Dioxide BUN Creatinine Glucose POC Glucose 160 H 140 H 186 H Hemoglobin A1c Phosphorus Magnesium AST Alkaline Phosphatase Total Creatine Kinase CK-MB (CK-2) Albumin Vitamin B12 Urine Creatinine Urine Total Protein 04/02/19 04/02/19 04/03/19 14:45 20:59 00:23 RBC Hgb Hct MCV MCH RDW Lymph % (Auto) Emmons % (Auto) Lymph # Seg Neutrophils % Seg Neutrophils # POC ABG pH ABG pH POC ABG pCO2 POC ABG pO2 ABG pO2 73.3 L ABG HCO3 34.3 H ABG O2 Saturation ABG Base Excess 8.7 H ABG Hemoglobin 11.1 L Oxyhemoglobin 93.5 L Sodium Potassium Chloride Carbon Dioxide BUN Creatinine Glucose POC Glucose 195 H 211 H Hemoglobin A1c Phosphorus Magnesium AST Alkaline Phosphatase Total Creatine Kinase CK-MB (CK-2) Albumin Vitamin B12 Urine Creatinine Urine Total Protein 04/03/19 04/03/19 04/03/19 05:48 05:48 06:00 RBC 3.46 L Hgb 11.5 L Hct 34.8 L MCV 101 H MCH 33 H RDW 15.5 H Lymph % (Auto) 13.2 L Emmons % (Auto) 8.8 H Lymph # 0.8 L Seg Neutrophils % 77.8 H Seg Neutrophils # POC ABG pH ABG pH POC ABG pCO2 POC ABG pO2 ABG pO2 ABG HCO3 ABG O2 Saturation ABG Base Excess ABG Hemoglobin Oxyhemoglobin Sodium 152 H Potassium 3.1 L Chloride Carbon Dioxide 34 H BUN 71 H Creatinine 1.8 H Glucose 128 H POC Glucose 124 H Hemoglobin A1c Phosphorus Magnesium 2.50 H AST Alkaline Phosphatase Total Creatine Kinase CK-MB (CK-2) Albumin 3.6 L Vitamin B12 Urine Creatinine Urine Total Protein 04/03/19 04/03/19 04/03/19 12:42 21:00 22:04 RBC Hgb Hct MCV MCH RDW Lymph % (Auto) Emmons % (Auto) Lymph # Seg Neutrophils % Seg Neutrophils # POC ABG pH ABG pH POC ABG pCO2 POC ABG pO2 ABG pO2 ABG HCO3 ABG O2 Saturation ABG Base Excess ABG Hemoglobin Oxyhemoglobin Sodium Potassium Chloride Carbon Dioxide BUN Creatinine Glucose POC Glucose 192 H 57 L Hemoglobin A1c Phosphorus Magnesium AST Alkaline Phosphatase Total Creatine Kinase CK-MB (CK-2) Albumin Vitamin B12 1568 H Urine Creatinine Urine Total Protein 04/03/19 04/04/19 04/04/19 23:21 00:42 04:23 RBC Hgb Hct MCV MCH RDW Lymph % (Auto) Emmons % (Auto) Lymph # Seg Neutrophils % Seg Neutrophils # POC ABG pH ABG pH POC ABG pCO2 POC ABG pO2 ABG pO2 ABG HCO3 ABG O2 Saturation ABG Base Excess ABG Hemoglobin Oxyhemoglobin Sodium 155 H Potassium 3.1 L Chloride 107.8 H Carbon Dioxide 34 H BUN 64 H Creatinine 1.9 H Glucose POC Glucose 69 L 63 L Hemoglobin A1c Phosphorus Magnesium AST Alkaline Phosphatase Total Creatine Kinase CK-MB (CK-2) Albumin Vitamin B12 Urine Creatinine Urine Total Protein 04/04/19 04/04/19 04/04/19 11:46 16:31 22:12 RBC Hgb Hct MCV MCH RDW Lymph % (Auto) Emmons % (Auto) Lymph # Seg Neutrophils % Seg Neutrophils # POC ABG pH ABG pH POC ABG pCO2 POC ABG pO2 ABG pO2 ABG HCO3 ABG O2 Saturation ABG Base Excess ABG Hemoglobin Oxyhemoglobin Sodium Potassium Chloride Carbon Dioxide BUN Creatinine Glucose POC Glucose 111 H 174 H 229 H Hemoglobin A1c Phosphorus Magnesium AST Alkaline Phosphatase Total Creatine Kinase CK-MB (CK-2) Albumin Vitamin B12 Urine Creatinine Urine Total Protein 04/05/19 04/05/19 04/05/19 05:08 07:46 11:27 RBC Hgb Hct MCV MCH RDW Lymph % (Auto) Emmons % (Auto) Lymph # Seg Neutrophils % Seg Neutrophils # POC ABG pH ABG pH POC ABG pCO2 POC ABG pO2 ABG pO2 ABG HCO3 ABG O2 Saturation ABG Base Excess ABG Hemoglobin Oxyhemoglobin Sodium Potassium Chloride Carbon Dioxide BUN Creatinine Glucose POC Glucose 202 H 233 H 241 H Hemoglobin A1c Phosphorus Magnesium AST Alkaline Phosphatase Total Creatine Kinase CK-MB (CK-2) Albumin Vitamin B12 Urine Creatinine Urine Total Protein 04/05/19 04/05/19 04/05/19 12:58 16:15 21:56 RBC Hgb Hct MCV MCH RDW Lymph % (Auto) Emmons % (Auto) Lymph # Seg Neutrophils % Seg Neutrophils # POC ABG pH ABG pH POC ABG pCO2 POC ABG pO2 ABG pO2 ABG HCO3 ABG O2 Saturation ABG Base Excess ABG Hemoglobin Oxyhemoglobin Sodium 149 H Potassium Chloride Carbon Dioxide 31 H BUN 67 H Creatinine 1.9 H Glucose 230 H POC Glucose 143 H 289 H Hemoglobin A1c Phosphorus Magnesium AST Alkaline Phosphatase Total Creatine Kinase CK-MB (CK-2) Albumin Vitamin B12 Urine Creatinine Urine Total Protein 04/06/19 04/06/19 04/06/19 05:25 07:12 07:52 RBC Hgb Hct MCV MCH RDW Lymph % (Auto) Emmons % (Auto) Lymph # Seg Neutrophils % Seg Neutrophils # POC ABG pH ABG pH POC ABG pCO2 POC ABG pO2 ABG pO2 ABG HCO3 ABG O2 Saturation ABG Base Excess ABG Hemoglobin Oxyhemoglobin Sodium Potassium Chloride Carbon Dioxide BUN 56 H Creatinine 1.7 H Glucose 233 H POC Glucose 234 H 225 H Hemoglobin A1c Phosphorus Magnesium AST Alkaline Phosphatase Total Creatine Kinase CK-MB (CK-2) Albumin Vitamin B12 Urine Creatinine Urine Total Protein 04/06/19 04/06/19 04/06/19 12:12 16:58 21:53 RBC Hgb Hct MCV MCH RDW Lymph % (Auto) Emmons % (Auto) Lymph # Seg Neutrophils % Seg Neutrophils # POC ABG pH ABG pH POC ABG pCO2 POC ABG pO2 ABG pO2 ABG HCO3 ABG O2 Saturation ABG Base Excess ABG Hemoglobin Oxyhemoglobin Sodium Potassium Chloride Carbon Dioxide BUN Creatinine Glucose POC Glucose 275 H 255 H 234 H Hemoglobin A1c Phosphorus Magnesium AST Alkaline Phosphatase Total Creatine Kinase CK-MB (CK-2) Albumin Vitamin B12 Urine Creatinine Urine Total Protein 04/07/19 04/07/19 04/07/19 02:51 10:40 10:40 RBC 3.51 L Hgb 11.4 L Hct 34.8 L MCV 99 H MCH RDW Lymph % (Auto) 6.0 L Emmons % (Auto) Lymph # 0.6 L Seg Neutrophils % 86.9 H Seg Neutrophils # 9.4 H POC ABG pH ABG pH POC ABG pCO2 POC ABG pO2 ABG pO2 ABG HCO3 ABG O2 Saturation ABG Base Excess ABG Hemoglobin Oxyhemoglobin Sodium Potassium Chloride Carbon Dioxide 34 H BUN 50 H Creatinine Glucose 298 H POC Glucose 219 H Hemoglobin A1c Phosphorus Magnesium AST Alkaline Phosphatase Total Creatine Kinase CK-MB (CK-2) Albumin Vitamin B12 Urine Creatinine Urine Total Protein 04/07/19 04/07/19 04/07/19 11:53 18:38 22:33 RBC Hgb Hct MCV MCH RDW Lymph % (Auto) Emmons % (Auto) Lymph # Seg Neutrophils % Seg Neutrophils # POC ABG pH ABG pH POC ABG pCO2 POC ABG pO2 ABG pO2 ABG HCO3 ABG O2 Saturation ABG Base Excess ABG Hemoglobin Oxyhemoglobin Sodium Potassium Chloride Carbon Dioxide BUN Creatinine Glucose POC Glucose 232 H 175 H 130 H Hemoglobin A1c Phosphorus Magnesium AST Alkaline Phosphatase Total Creatine Kinase CK-MB (CK-2) Albumin Vitamin B12 Urine Creatinine Urine Total Protein 04/08/19 04/08/19 04/08/19 05:42 06:19 07:19 RBC Hgb Hct MCV MCH RDW Lymph % (Auto) Emmons % (Auto) Lymph # Seg Neutrophils % Seg Neutrophils # POC ABG pH ABG pH POC ABG pCO2 POC ABG pO2 ABG pO2 ABG HCO3 ABG O2 Saturation ABG Base Excess ABG Hemoglobin Oxyhemoglobin Sodium 149 H Potassium 3.5 L Chloride Carbon Dioxide 34 H BUN 40 H Creatinine Glucose POC Glucose 53 L 129 H Hemoglobin A1c Phosphorus Magnesium AST Alkaline Phosphatase Total Creatine Kinase CK-MB (CK-2) Albumin Vitamin B12 Urine Creatinine Urine Total Protein 04/08/19 04/08/19 04/08/19 11:15 16:58 23:51 RBC Hgb Hct MCV MCH RDW Lymph % (Auto) Emmons % (Auto) Lymph # Seg Neutrophils % Seg Neutrophils # POC ABG pH ABG pH POC ABG pCO2 POC ABG pO2 ABG pO2 ABG HCO3 ABG O2 Saturation ABG Base Excess ABG Hemoglobin Oxyhemoglobin Sodium Potassium Chloride Carbon Dioxide BUN Creatinine Glucose POC Glucose 223 H 173 H 135 H Hemoglobin A1c Phosphorus Magnesium AST Alkaline Phosphatase Total Creatine Kinase CK-MB (CK-2) Albumin Vitamin B12 Urine Creatinine Urine Total Protein 04/09/19 09:09 RBC Hgb Hct MCV MCH RDW Lymph % (Auto) Emmons % (Auto) Lymph # Seg Neutrophils % Seg Neutrophils # POC ABG pH ABG pH POC ABG pCO2 POC ABG pO2 ABG pO2 ABG HCO3 ABG O2 Saturation ABG Base Excess ABG Hemoglobin Oxyhemoglobin Sodium Potassium Chloride Carbon Dioxide 35 H BUN 34 H Creatinine Glucose 64 L POC Glucose Hemoglobin A1c Phosphorus Magnesium AST Alkaline Phosphatase Total Creatine Kinase CK-MB (CK-2) Albumin Vitamin B12 Urine Creatinine Urine Total Protein
--- NOTE | 2019-04-09 10:50 | Progress Note ---
Assessment and Plan Cont present cardiac management. The patient has been seen in conjunction with Dr. Varghese who agrees with the assessment and plan of care. - Patient Problems (1) Atrial fibrillation with RVR Current Visit: Yes Status: Resolved (2) Acute renal failure Current Visit: Yes Status: Acute (3) Hypernatremia Current Visit: Yes Status: Acute (4) Altered mental status Current Visit: Yes Status: Acute (5) Alcohol withdrawal Current Visit: Yes Status: Suspected (6) COPD (chronic obstructive pulmonary disease) Current Visit: Yes Status: Chronic (7) Sleep apnea Current Visit: Yes Status: Chronic (8) Obesity Current Visit: Yes Status: Chronic (9) HTN (hypertension) Current Visit: Yes Status: Chronic (10) Diabetes Current Visit: Yes Status: Chronic Subjective Date of service: 04/09/19 Principal diagnosis: Afib Interval history: pt resting in bed, restrained, sitter at bedside, more confused today. refusing to wear alternative medicine practitioner. Objective Last Vital Signs Temp 97.3 F L 04/09/19 01:09 Pulse 85 04/09/19 08:25 Resp 18 04/09/19 08:25 BP 132/82 04/09/19 01:35 Pulse Ox 96 04/09/19 08:27 - Physical Examination General: No Apparent Distress HEENT: Positive: PERRL, Normocephaly Neck: Positive: neck supple. Negative: JVD/HJR, Bruit Cardiac: Positive: Reg Rate and Rhythm, S1/S2 Lungs: Positive: Decreased Breath Sounds Neuro: Positive: Other (confused) Abdomen: Positive: Soft. Negative: Tender /Rectal: Other (deferred) Skin: Positive: Clear. Negative: Rash Musculoskeletal: Normal Range of Motion Extremities: Present: +1 Edema, Other (pedal pulse intact) - Labs and Meds Comprehensive Metabolic Panel 04/09/19 Range/Units 09:09 Sodium 144 (137-145) mmol/L Potassium 3.6 (3.6-5.0) mmol/L Chloride 102.3 (98-107) mmol/L Carbon Dioxide 35 H (22-30) mmol/L BUN 34 H (9-20) mg/dL Creatinine 1.3 (0.8-1.5) mg/dL Glucose 64 L (75-100) mg/dL Calcium 9.0 (8.4-10.2) mg/dL - Imaging and Cardiology Echo: report reviewed (03/2019: EF 55-60%, abnormal left ventricular diastolic function )
[2019-04-09] MEDS: LANTUS SUB-Q SCH ×2 (10:51→23:20)
[2019-04-09] MEDS: DELTASONE PO SCH (11:00)
[2019-04-09] MEDS: PEPCID PO SCH ×2 (11:00→22:53)
[2019-04-09] MEDS: PROzac PO SCH (11:01)
[2019-04-09] MEDS: LOPRESSOR PO SCH ×2 (11:01→22:54)
[2019-04-09] MEDS: ELIQUIS PO SCH ×2 (11:01→22:53)
[2019-04-09] MEDS: CARDIZEM CD PO SCH (11:41)
[2019-04-09] MEDS: D50W (25GM) Syringe IV PRN (11:45)
--- NOTE | 2019-04-09 13:19 | Ultrasound Report ---
ULTRASOUND ABDOMEN, LIMITED (RIGHT UPPER QUADRANT) INDICATION: etoh abuse, hx of liver disease. COMPARISON: None available. FINDINGS: Pancreas: Poorly visualized secondary to bowel gas. Liver: Normal. Gallbladder: Normal. Bile ducts: Normal. Common Bile Duct measures 2 mm. Free fluid: None. Additional Findings: None. IMPRESSION: 1. No sonographic abnormality of the right upper quadrant. Signer Name: Bubba Medrano MD Signed: 04/09/2019 1:15 PM Workstation Name: [id number]
--- NOTE | 2019-04-09 15:50 | Progress Note ---
Assessment and Plan Acute Renal Failure secondary to Prerenal vs ATN from Hypotension, no obstruction: Hyperkalemia: High Anion Gap Metabolic Acidosis: Hyperphosphatemia COPD Exacerbation HUMA Hypernatremia -Renal function reviewed, SCr level was 1.3 today, yesterday's SCr level was 1.4 -On 08/17 NS infusion at 100 ml/hr -Renal US showed no hydronephrosis -Urine eosinophils negative -Rivers Catheter: No -Renal function stable, hypernatremia improved, we will sign off -Renal plan d/w Dr Olivarez Subjective Date of service: 04/09/19 Principal diagnosis: Afib Interval history: Pt seen in bed, awake, confused, no acute distress. Pt currently getting bathed at bedside Objective - Vital Signs Vital signs: Vital Signs - 12hr 04/09/19 04/09/19 04/09/19 08:25 08: 10:00 Pulse Rate [ 85 Anterior Bilateral Throughout] Pulse Rate [ 90 Apical] Respiratory 18 Rate [Anterior Bilateral Throughout] O2 Sat by Pulse 96 98 Oximetry 04/09/19 14:04 Pulse Rate [ 88 Anterior Bilateral Throughout] Pulse Rate [ Apical] Respiratory 20 Rate [Anterior Bilateral Throughout] O2 Sat by Pulse Oximetry - General Appearance General appearance: well-developed EENT: ATNC Neck: no JVD Respiratory: Present: Decreased Breath Sounds Cardiology: regular, S1S2 Gastrointestinal: normoactive bowel sounds Integumentary: warm and dry Neurologic: confused (awake, oriented to self and time, but not place, confused) Musculoskeletal: other (trace edema to BLE) - Lab 04/07/19 10:40 04/09/19 13:23 Most recent lab results ABG pH 7.435 pH Units (7.350-7.450) 04/02/19 14:45 ABG pCO2 52.3 mm Hg 04/02/19 14:45 ABG pO2 73.3 mm Hg (80.0-90.0) L 04/02/19 14:45 ABG HCO3 34.3 mmol/L (20.0-26.0) H 04/02/19 14:45 ABG O2 Saturation 95.3 % (95.0-99.0) 04/02/19 14:45 Calcium 9.0 mg/dL (8.4-10.2) 04/09/19 09:09 Phosphorus 3.20 mg/dL (2.5-4.5) 04/07/19 10:40 Magnesium 2.20 mg/dL (1.7-2.3) 04/07/19 10:40 227.1 mg/dL (0.1-20.0) H 03/30/19 10:00 230.8 mg/dL (0.1-20.0) H 03/30/19 10:00 22 mmol/L 03/30/19 10:00 31 mg/dL (5-11.8) H 03/30/19 10:00 32 mg/dL (5-11.8) H 03/30/19 10:00 Medications & Allergies - Medications Allergies/Adverse Reactions: Allergies No Known Allergies Allergy (Unverified 08/21/14 12:00) Home Medications: Home Medications Medication Instructions Recorded Confirmed Last Taken Type ALBUTEROL Inhaler (OR & NICU) 2 puff IH QID PRN 03/29/19 03/29/19 03/29/19 History [Proair] Apixaban [Eliquis] 5 mg PO BID 03/29/19 03/29/19 03/27/19 History AtorvaSTATin [Lipitor] 40 mg PO DAILY 03/29/19 03/29/19 03/27/19 History FLUoxetine HCL [Prozac] 10 mg PO QDAY 03/29/19 03/29/19 03/27/19 History Glimepiride [Amaryl] 2 mg PO BID 03/29/19 03/29/19 03/27/19 History Lisinopril [Zestril] 5 mg PO QDAY 03/29/19 03/29/19 03/27/19 History Metformin HCl [metFORMIN] 1,000 mg PO BID 03/29/19 03/29/19 03/29/19 History Pantoprazole [Protonix] 40 mg PO QDAY 03/29/19 03/29/19 03/27/19 History Tiotropium [place] [Spiriva 4 gm IH QDAY 03/29/19 03/29/19 Unknown History Respimat] Active Medications: Generic Name Dose Route Start Last Admin Trade Name Freq PRN Reason Stop Dose Admin Acetaminophen 650 mg 03/29/19 22:13 04/08/19 10:36 Tylenol PO 650 mg Q4H PRN Administration Pain MILD(1-3)/Fever >100.5/ARIAS Albuterol 2.5 mg 03/29/19 22:15 04/02/19 02:10 Proventil IH 2.5 mg Q4HRT PRN Administration Shortness Of Breath Albuterol/Ipratropium 1 ampul 04/05/19 16:00 04/09/19 14:04 Duoneb *Not For Prn Use* IH 1 ampul Q4HRT RADHA Administration Apixaban 5 mg 03/31/19 02:00 04/09/19 11:01 Eliquis PO 5 mg BID RADHA Administration Protocol Atorvastatin Calcium 40 mg 03/31/19 10:00 04/09/19 11:00 Lipitor PO 40 mg DAILY RADHA Administration Benzonatate 100 mg 03/31/19 14:00 04/09/19 05:27 Tessalon Perles PO 100 mg Q8HR RADHA Administration Budesonide 0.5 mg 04/06/19 08:00 04/09/19 08:24 Pulmicort IH 0.5 mg Q12HRT RADHA Administration Dextrose 50 ml 03/30/19 16:21 04/09/19 11:45 D50w (25gm) Syringe IV 50 ml PRN PRN Administration Hypoglycemia Diltiazem HCl 300 mg 04/09/19 10:00 04/09/19 11:41 Cardizem Cd PO 300 mg QDAY RADHA Administration Famotidine 10 mg 03/31/19 10:00 04/09/19 11:00 Pepcid PO 10 mg BID RADHA Administration Fluoxetine HCl 10 mg 03/31/19 02:00 04/09/19 11:01 Prozac PO 10 mg QDAY RADHA Administration Guaifenesin 5 ml 03/31/19 13:07 04/08/19 10:37 Guaifenesin Dm Syrup PO 5 ml Q6H PRN Administration Cough Haloperidol 1 mg 04/07/19 18:25 04/09/19 05:27 Haldol PO 1 mg Q6H PRN Administration Agitation Haloperidol Lactate 5 mg 04/07/19 18:25 04/09/19 08:47 Haldol IM 5 mg Q6H PRN Administration Agitation Sodium Chloride 38.48 meq/ 1,000 mls @ 100 mls/hr 04/08/19 09:30 04/08/19 13:11 Sterile Water IV 100 mls/hr DIRECT RADHA Administration Insulin Glargine 30 units 04/01/19 11:00 04/09/19 10:51 Lantus SUB-Q Not Given BID RADHA Insulin Human Lispro 0 unit 03/31/19 00:00 04/09/19 11:43 Humalog SUB-Q Not Given Q6HR [facility] Protocol Insulin Human Lispro 10 unit 04/01/19 07:30 04/09/19 08:04 Humalog SUB-Q Not Given AC [facility] Metoclopramide HCl 5 mg 03/29/19 22:13 03/30/19 20:54 Reglan IV 5 mg Q6H PRN Administration Nausea And Vomiting Metoprolol Tartrate 50 mg 04/03/19 12:00 04/09/19 11:01 Lopressor PO 50 mg BID RADHA Administration Olanzapine 5 mg 04/08/19 16:57 04/09/19 11:01 Zyprexa Zydis PO 5 mg Q6H PRN Administration Agitation Ondansetron HCl 4 mg 03/29/19 22:13 Zofran IV Q8H PRN Nausea And Vomiting Prednisone 40 mg 04/08/19 10:00 04/09/19 11:00 Deltasone PO 40 mg QDAY RADHA Administration Quetiapine Fumarate 50 mg 04/08/19 22:00 04/09/19 11:00 Seroquel PO 50 mg BID RADHA Administration Sodium Chloride 10 ml 03/30/19 10:00 04/08/19 21:43 Sodium Chloride Flush Syringe 10 Ml IV 10 ml BID RADHA Administration Sodium Chloride 10 ml 03/29/19 22:13 04/06/19 00:11 Sodium Chloride Flush Syringe 10 Ml IV 10 ml PRN PRN Administration LINE FLUSH
--- NOTE | 2019-04-09 16:27 | Progress Note ---
Assessment and Plan 58M who pw sob -Acute metabolic encephalopathy likely due to etoh, and getting high dose ativan dc ativan for now, patient hasn't had a drink in over a week haldol prn, olanzapine prn, MR brain Showed no stoke , consult -Acute and chronic respiratory failure secondary to COPD exacerbation taper steroids per pulmonology -Afib with rvr and hypercoaguable state mgt per cardiology, rate control improved, cont eliquis -Acute renal failure due to ATN Cr down to 1.3 nephrology following, improving -Hyperkalemia Corrected -Hypernatremia corrected Improved, change IVF to 1/4NS -Hypokalemia supplemented Metabolic acidosis - sp bicarbonate drip, resolved -Polysubstance abuse/etoh withdrawal -uds pos for amphetamines, per [place], no documented hx of amphetamine abuse -he was rx with [facility]WA protocol for etoh abuse, ativan now dc -Type 2 diabetes mellitus with persistent hyperglycemia - Continue insulin coverage DVT prophylaxis - On heparin Called and discussed with pt's brotherYael Subjective Date of service: 04/09/19 Principal diagnosis: Afib, Interval history: Still confused and talks irrationality. Was said to have removed vehicle monitor technician and threw it at his seater per pt's nurse. Objective - Exam Narrative Exam: Constitutional: Obese. Sitting up in bed on talking irrational. Confused. Head: Normocephalic atraumatic Eyes: Pupils are equal round and reactive to light Nose: No enlarged turbinates, no septal deviation. Mouth: Moist mucous membranes. Neck: Supple no thyromegaly. No bruit. No JVD Heart: Regular rate and rhythm, S1-S2 normal. No rubs murmurs or gallop Lungs: Clear to auscultation bilaterally. no rales or rhonchi Abdomen: Soft, nontender. Bowel sound are present. Extremities: No edema, no cyanosis, no clubbing. Neuro: Alert oriented Oriented x3. No focal sensory or motor deficit. Skin: No rashes or hyperpigmented spots Musculoskeletal system: No joint pain or swelling Hematological: No petechia or subcutanous hemorrhages. Immunological: No multiple septic spots on the skin Lymphatic: No generalized lymphadenopathy Psychiatry: Confused - Constitutional Vitals: Vital Signs - 12hr 04/09/19 04/09/19 04/09/19 08:25 08:27 10:00 Pulse Rate [ 85 Anterior Bilateral Throughout] Pulse Rate [ 90 Apical] Respiratory 18 Rate [Anterior Bilateral Throughout] O2 Sat by Pulse 96 98 Oximetry 04/09/19 14:04 Pulse Rate [ 88 Anterior Bilateral Throughout] Pulse Rate [ Apical] Respiratory 20 Rate [Anterior Bilateral Throughout] O2 Sat by Pulse Oximetry General appearance: Present: no acute distress, well-nourished - EENT Eyes: PERRL, EOM intact ENT: hearing intact, clear oral mucosa Ears: bilateral: normal - Neck Neck: supple, normal ROM - Respiratory Respiratory effort: normal Respiratory: bilateral: CTA - Breasts Breasts: normal - Cardiovascular Rhythm: regular Heart Sounds: Present: S1 & S2. Absent: gallop, rub Extremities: pulses intact, No edema, normal color, Full ROM - Gastrointestinal General gastrointestinal: Present: soft, non-tender, non-distended, normal bowel sounds - Genitourinary Male genitourinary: normal - Integumentary Integumentary: clear, warm, dry - Musculoskeletal Musculoskeletal: 1, strength equal bilaterally - Neurologic Neurologic: moves all extremities - Psychiatric Psychiatric: memory intact, appropriate mood/affect, intact judgment & insight - Labs CBC & Chem 7: 04/07/19 10:40 04/09/19 13:23 Labs: Abnormal lab results 04/08/19 04/08/19 04/09/19 Range/Units 16:58 23:51 09:09 Carbon Dioxide 35 H (22-30) mmol/L BUN 34 H (9-20) mg/dL Glucose 64 L (75-100) mg/dL POC Glucose 173 H 135 H (70-105) 04/09/19 04/09/19 Range/Units 11:28 13:23 Carbon Dioxide (22-30) mmol/L BUN (9-20) mg/dL Glucose 101 H (75-100) mg/dL POC Glucose 56 L (70-105)
[2019-04-09] MEDS ORDERED: PROAIR IH PRN (17:02)
[2019-04-09] MEDS ORDERED: NON-FORMULARY (Tiotropium Bromide [Spiriva Respimat] 4 GM) IH SCH (17:15)
[2019-04-09] MEDS ORDERED: PROVENTIL IH PRN (17:22)
[2019-04-09] MEDS: ZESTRIL PO SCH (18:22)
[2019-04-09] MEDS: STERILE WATER IV SCH (18:23)
[2019-04-09] MEDS: PROTONIX PO SCH (18:23)
[2019-04-09] MEDS: NACL IV SCH (18:23)
[2019-04-09] MEDS: TYLENOL PO PRN (18:32)
[2019-04-09] MEDS: SODIUM CHLORIDE FLUSH SYRINGE 10 ML IV SCH ×2 (18:34→22:53)
[2019-04-09] MEDS ORDERED: NON-FORMULARY (Metformin Hcl [Metformin] 1,000 MG) PO SCH (22:00)
[2019-04-09] MEDS: GLUCOPHAGE PO SCH (23:20)
[2019-04-10] MEDS: SPIRIVA IH SCH ×2 (00:43→14:22)
[2019-04-10] MEDS: TYLENOL PO PRN (01:26)
[2019-04-10] MEDS: HumaLOG SUB-Q SCH ×6 (05:38→17:29)
[2019-04-10] MEDS: STERILE WATER IV SCH (05:39)
[2019-04-10] MEDS: TESSALON PERLES PO SCH ×3 (05:39→22:23)
[2019-04-10] MEDS: NACL IV SCH (05:39)
[2019-04-10] MEDS: GLUCOPHAGE PO SCH ×2 (08:00→16:03)
[2019-04-10 09:24] LABS: Basophils # (Auto) 0.1 K/mm3 (0.0-0.1); Basophils % (Auto) 0.7 % (0.0-1.8); Eosinophils % (Auto) 0.4 % (0.0-4.3); Hematocrit 31.9 % (35.5-45.6); Hemoglobin 10.8 gm/dl (11.8-15.2); Lymphocytes % (Auto) 20.5 % (13.4-35.0); Mean Corpuscular HGB Conc 34 % (32-34); Mean Corpuscular Volume 98 fl (84-94); Monocytes # (Auto) 0.9 K/mm3 (0.0-0.8); Monocytes % (Auto) 9.4 % (0.0-7.3); Platelet Count 159 K/mm3 (140-440); Red Blood Count 3.26 M/mm3 (3.65-5.03); Red Cell Distribution Width 14.7 % (13.2-15.2)
[2019-04-10 09:41] LABS: Albumin 2.6 g/dL (3.9-5); Calcium 8.5 mg/dL (8.4-10.2)
[2019-04-10] MEDS: ZESTRIL PO SCH ×2 (10:00→10:39)
[2019-04-10] MEDS: CARDIZEM CD PO SCH (10:00)
[2019-04-10] MEDS: LOPRESSOR PO SCH ×3 (10:00→22:23)
--- NOTE | 2019-04-10 10:12 | Progress Note ---
Assessment and Plan Currently stable cardiac status. Cont present cardiac management. Will follow on as needed basis. The patient has been seen in conjunction with Dr. Varghese who agrees with the assessment and plan of care. - Patient Problems (1) Atrial fibrillation with RVR Current Visit: Yes Status: Resolved (2) Acute renal failure Current Visit: Yes Status: Acute (3) Hypernatremia Current Visit: Yes Status: Acute (4) Altered mental status Current Visit: Yes Status: Acute (5) Alcohol withdrawal Current Visit: Yes Status: Suspected (6) COPD (chronic obstructive pulmonary disease) Current Visit: Yes Status: Chronic (7) Sleep apnea Current Visit: Yes Status: Chronic (8) Obesity Current Visit: Yes Status: Chronic (9) HTN (hypertension) Current Visit: Yes Status: Chronic (10) Diabetes Current Visit: Yes Status: Chronic Subjective Date of service: 04/10/19 Principal diagnosis: Afib, Interval history: pt resting in bed, restrained, sitter at bedside, remains confused. refusing to wear pull tab dealer. Objective Last Vital Signs Temp 97.5 F L 04/10/19 05:17 Pulse 79 04/10/19 05:17 Resp 20 04/10/19 05:17 BP 112/64 04/10/19 05:17 Pulse Ox 97 04/10/19 08:06 - Physical Examination General: No Apparent Distress HEENT: Positive: PERRL, Normocephaly Neck: Positive: neck supple. Negative: JVD/HJR, Bruit Cardiac: Positive: irregularly irregular, S1/S2 Lungs: Positive: Decreased Breath Sounds Neuro: Positive: Other (confused) Abdomen: Positive: Soft. Negative: Tender /Rectal: Other (deferred) Skin: Positive: Clear. Negative: Rash Musculoskeletal: Normal Range of Motion Extremities: Present: +1 Edema, Other (pedal pulse intact) - Labs and Meds Cardiac Enzymes 04/10/19 Range/Units 09:10 AST 49 H (5-40) units/L CBC 04/10/19 Range/Units 09:10 WBC 9.8 (4.5-11.0) K/mm3 RBC 3.26 L (3.65-5.03) M/mm3 Hgb 10.8 L (11.8-15.2) gm/dl Hct 31.9 L (35.5-45.6) % Plt Count 159 (140-440) K/mm3 Lymph # 2.0 (1.2-5.4) K/mm3 [place] # 0.9 H (0.0-0.8) K/mm3 Eos # 0.0 (0.0-0.4) K/mm3 Baso # 0.1 (0.0-0.1) K/mm3 Comprehensive Metabolic Panel 04/09/19 04/10/19 Range/Units 13:23 09:10 Sodium 142 (137-145) mmol/L Potassium 3.5 L (3.6-5.0) mmol/L Chloride 100.2 (98-107) mmol/L Carbon Dioxide 32 H (22-30) mmol/L BUN 29 H (9-20) mg/dL Creatinine 1.3 (0.8-1.5) mg/dL Glucose 101 H 101 H (75-100) mg/dL Calcium 8.5 (8.4-10.2) mg/dL AST 49 H (5-40) units/L ALT 59 H (7-56) units/L Alkaline Phosphatase 90 (35-129) units/L Total Protein 5.3 L (6.3-8.2) g/dL Albumin 2.6 L (3.9-5) g/dL - Imaging and Cardiology Echo: report reviewed (03/2019: EF 55-60%, abnormal left ventricular diastolic function )
--- NOTE | 2019-04-10 10:33 | Progress Note ---
Assessment and Plan Acute Renal Failure secondary to Prerenal vs ATN from Hypotension, no obstruction: Hyperkalemia, Resolved: Acidosis, Resolved: Hypernatremia, Resolving: Hypokalemia, Resolved: COPD: AMS: -Serum creatinine stabe at 1.3, non-oliguric -Hypernatremia-On D5W@ 100 ml/hr, encourage free water intake, sodium level was improving at 145 yesterday -AMS-Neurology consulted -Urine eosinophils negative -Renal US showed no hydronephrosis -Obtain daily weights -Monitor I/O's -Avoid nephrotoxic agents -No acute indication for HD at this time -Will continue to monitor renal function closely Subjective Date of service: 04/10/19 Principal diagnosis: Afib, Objective - Vital Signs Vital signs: Vital Signs - 12hr 04/09/19 04/09/19 04/10/19 22:54 22:59 00:29 Temperature 98.8 F Pulse Rate 95 H 70 Respiratory 20 20 Rate Blood Pressure 132/72 97/66 O2 Sat by Pulse 96 Oximetry 04/10/19 04/10/19 05:17 08:06 Temperature 97.5 F L Pulse Rate 79 Respiratory 20 Rate Blood Pressure 112/64 O2 Sat by Pulse 89 97 Oximetry - Lab 04/10/19 09:10 04/10/19 09:10 Most recent lab results ABG pH 7.435 pH Units (7.350-7.450) 04/02/19 14:45 ABG pCO2 52.3 mm Hg 04/02/19 14:45 ABG pO2 73.3 mm Hg (80.0-90.0) L 04/02/19 14:45 ABG HCO3 34.3 mmol/L (20.0-26.0) H 04/02/19 14:45 ABG O2 Saturation 95.3 % (95.0-99.0) 04/02/19 14:45 Calcium 8.5 mg/dL (8.4-10.2) 04/10/19 09:10 Phosphorus 3.90 mg/dL (2.5-4.5) 04/10/19 09:10 Magnesium 1.90 mg/dL (1.7-2.3) 04/10/19 09:10 227.1 mg/dL (0.1-20.0) H 03/30/19 10:00 230.8 mg/dL (0.1-20.0) H 03/30/19 10:00 22 mmol/L 03/30/19 10:00 31 mg/dL (5-11.8) H 03/30/19 10:00 32 mg/dL (5-11.8) H 03/30/19 10:00 Medications & Allergies - Medications Allergies/Adverse Reactions: Allergies No Known Allergies Allergy (Unverified 08/21/14 12:00) Home Medications: Home Medications Medication Instructions Recorded Confirmed Last Taken Type ALBUTEROL Inhaler (OR & NICU) 2 puff IH QID PRN 03/29/19 03/29/19 03/29/19 History [Proair] Apixaban [Eliquis] 5 mg PO BID 03/29/19 03/29/19 03/27/19 History AtorvaSTATin [Lipitor] 40 mg PO DAILY 03/29/19 03/29/19 03/27/19 History FLUoxetine HCL [Prozac] 10 mg PO QDAY 03/29/19 03/29/19 03/27/19 History Glimepiride [Amaryl] 2 mg PO BID 03/29/19 03/29/19 03/27/19 History Lisinopril [Zestril] 5 mg PO QDAY 03/29/19 03/29/19 03/27/19 History Metformin HCl [metFORMIN] 1,000 mg PO BID 03/29/19 03/29/19 03/29/19 History Pantoprazole [Protonix] 40 mg PO QDAY 03/29/19 03/29/19 03/27/19 History Tiotropium [place] [Spiriva 4 gm IH QDAY 03/29/19 03/29/19 Unknown History Respimat] Active Medications: Generic Name Dose Route Start Last Admin Trade Name Freq PRN Reason Stop Dose Admin Acetaminophen 650 mg 03/29/19 22:13 04/10/19 01:26 Tylenol PO 650 mg Q4H PRN Administration Pain MILD(1-3)/Fever >100.5/ARIAS Albuterol 2.5 mg 04/09/19 17:22 Proventil IH Q4HRT PRN Shortness Of Breath Albuterol/Ipratropium 1 ampul 04/09/19 20:00 04/09/19 20:15 Duoneb *Not For Prn Use* IH 1 ampul TIDRT RADHA Administration Apixaban 5 mg 03/31/19 02:00 04/09/19 22:53 Eliquis PO 5 mg BID RADHA Administration Protocol Atorvastatin Calcium 40 mg 03/31/19 10:00 04/09/19 11:00 Lipitor PO 40 mg DAILY RADHA Administration Benzonatate 100 mg 03/31/19 14:00 04/10/19 05:39 Tessalon Perles PO 100 mg Q8HR RADHA Administration Budesonide 0.5 mg 04/06/19 08:00 04/09/19 20:14 Pulmicort IH 0.5 mg Q12HRT RADHA Administration Dextrose 50 ml 03/30/19 16:21 04/09/19 11:45 D50w (25gm) Syringe IV 50 ml PRN PRN Administration Hypoglycemia Diltiazem HCl 300 mg 04/09/19 10:00 04/09/19 11:41 Cardizem Cd PO 300 mg QDAY RADHA Administration Famotidine 10 mg 03/31/19 10:00 04/09/19 22:53 Pepcid PO 10 mg BID RADHA Administration Fluoxetine HCl 10 mg 03/31/19 02:00 04/09/19 11:01 Prozac PO 10 mg QDAY RADHA Administration Guaifenesin 5 ml 03/31/19 13:07 04/08/19 10:37 Guaifenesin Dm Syrup PO 5 ml Q6H PRN Administration Cough Haloperidol 1 mg 04/07/19 18:25 04/09/19 22:53 Haldol PO 1 mg Q6H PRN Administration Agitation Haloperidol Lactate 5 mg 04/07/19 18:25 04/09/19 08:47 Haldol IM 5 mg Q6H PRN Administration Agitation Sodium Chloride 38.48 meq/ 1,000 mls @ 100 mls/hr 04/08/19 09:30 04/10/19 05:39 Sterile Water IV 100 mls/hr DIRECT RADHA Administration Insulin Glargine 30 units 04/01/19 11:00 04/09/19 23:20 Lantus SUB-Q 30 units BID RADHA Administration Insulin Human Lispro 0 unit 03/31/19 00:00 04/10/19 05:38 Humalog SUB-Q Not Given Q6HR [facility] Protocol Insulin Human Lispro 10 unit 04/01/19 07:30 04/09/19 18:11 Humalog SUB-Q Not Given AC RADHA Lactulose 30 gm 04/10/19 10:00 Cephulac PO QDAY RADHA Lisinopril 5 mg 04/09/19 18:00 04/09/19 18:22 Zestril PO 5 mg QDAY RADHA Administration Metformin HCl 1,000 mg 04/09/19 22:00 04/09/19 23:20 Glucophage PO 1,000 mg BIDDIAB RADHA Administration Metoclopramide HCl 5 mg 03/29/19 22:13 03/30/19 20:54 Reglan IV 5 mg Q6H PRN Administration Nausea And Vomiting Metoprolol Tartrate 50 mg 04/03/19 12:00 04/09/19 22:54 Lopressor PO 50 mg BID RADHA Administration Olanzapine 5 mg 04/08/19 16:57 04/09/19 18:22 Zyprexa Zydis PO 5 mg Q6H PRN Administration Agitation Ondansetron HCl 4 mg 03/29/19 22:13 Zofran IV Q8H PRN Nausea And Vomiting Pantoprazole Sodium 40 mg 04/09/19 18:00 04/09/19 18:23 Protonix PO 40 mg QDAY RADHA Administration Prednisone 40 mg 04/08/19 10:00 04/09/19 11:00 Deltasone PO 40 mg QDAY RADHA Administration Quetiapine Fumarate 50 mg 04/08/19 22:00 04/09/19 22:53 Seroquel PO 50 mg BID RADHA Administration Sodium Chloride 10 ml 03/30/19 10:00 04/09/19 22:53 Sodium Chloride Flush Syringe 10 Ml IV 10 ml BID RADHA Administration Sodium Chloride 10 ml 03/29/19 22:13 04/06/19 00:11 Sodium Chloride Flush Syringe 10 Ml IV 10 ml PRN PRN Administration LINE FLUSH Tiotropium [place] 1 puff 04/09/19 20:00 04/10/19 00:43 Spiriva IH Not Given Q24HR [facility]
[2019-04-10] MEDS: PROzac PO SCH (10:34)
[2019-04-10] MEDS: DELTASONE PO SCH (10:34)
[2019-04-10] MEDS: SODIUM CHLORIDE FLUSH SYRINGE 10 ML IV SCH ×2 (10:34→22:26)
[2019-04-10] MEDS: CEPHULAC PO SCH (10:35)
[2019-04-10] MEDS: PEPCID PO SCH ×2 (10:35→22:23)
[2019-04-10] MEDS: PROTONIX PO SCH (10:36)
[2019-04-10] MEDS: ELIQUIS PO SCH ×2 (10:36→22:24)
[2019-04-10] MEDS: LANTUS SUB-Q SCH ×2 (10:37→22:24)
[2019-04-10] MEDS: PULMICORT IH SCH ×2 (11:01→19:53)
[2019-04-10] MEDS: DUONEB *Not for PRN Use IH SCH ×3 (11:03→19:54)
--- NOTE | 2019-04-10 13:04 | Progress Note ---
Assessment and Plan 58 y/o obese male with altered mental status, concern for ETOH withdrawal on CIWA and untreated HUMA and COPD. 1. Drop steroids to 20 today. 2. Continue scheduled duonebs and BID pulmicort 3. Blood pressure and Heart rate control, cards changed to Long acting dilt 4. Weight loss 5. Will continue to follow. Subjective Date of service: 04/10/19 Principal diagnosis: Afib Interval history: NO acute events. On 2 liters and stable Objective Vital Signs - 12hr 04/10/19 04/10/19 04/10/19 05:17 08:00 08:06 Temperature 97.5 F L Pulse Rate 79 Pulse Rate [ 74 Anterior Bilateral Throughout] Respiratory 20 Rate Respiratory 20 Rate [Anterior Bilateral Throughout] Blood Pressure 112/64 O2 Sat by Pulse 89 97 Oximetry 04/10/19 10:39 Temperature Pulse Rate 79 Pulse Rate [ Anterior Bilateral Throughout] Respiratory Rate Respiratory Rate [Anterior Bilateral Throughout] Blood Pressure O2 Sat by Pulse Oximetry Constitutional: other (obese, confused, agitated) Eyes: non-icteric ENT: oropharynx moist Neck: supple Ascultation: Bilateral: clear, diminished breath sounds, wheezes Percussion: Bilateral: not dull Cardiovascular: irregular rhythm (ir/ir, no mrg) Gastrointestinal: normoactive bowel sounds Integumentary: normal Extremities: no cyanosis, no edema, pink and warm Neurologic: non-focal exam Psychiatric: other (unable to assess) CBC and BMP: 04/10/19 09:10 04/10/19 09:10 ABG, PT/INR, D-dimer: ABG POC ABG pH 7.827 (7.35-7.45) H 04/02/19 03:09 ABG pH 7.435 pH Units (7.350-7.450) 04/02/19 14:45 ABG pCO2 52.3 mm Hg 04/02/19 14:45 POC ABG pO2 157 (80-105) H 04/02/19 03:09 ABG pO2 73.3 mm Hg (80.0-90.0) L 04/02/19 14:45 POC ABG HCO3 30.3 (22-26 mml/L) 04/02/19 03:09 POC ABG Total CO2 31 (23-27mmol/L) 04/02/19 03:09 POC ABG O2 Sat 100 04/02/19 03:09 ABG O2 Saturation 95.3 % (95.0-99.0) 04/02/19 14:45 Abnormal lab findings: Abnormal Labs 03/29/19 03/29/19 03/29/19 13:18 13:18 18:22 RBC 3.24 L Hgb 10.6 L Hct 33.2 L MCV 103 H MCH 33 H RDW 15.5 H Lymph % (Auto) 9.4 L [place] % (Auto) 7.8 H Lymph # 0.8 L [place] # Seg Neutrophils % 81.5 H Seg Neutrophils # POC ABG pH 7.122 L ABG pH POC ABG pCO2 45.4 H POC ABG pO2 ABG pO2 ABG HCO3 ABG O2 Saturation ABG Base Excess ABG Hemoglobin Oxyhemoglobin Sodium 132 L Potassium 6.6 H* Chloride 94.9 L Carbon Dioxide 14 L BUN 73 H Creatinine 8.6 H Glucose POC Glucose Hemoglobin A1c Phosphorus Magnesium Total Bilirubin AST 48 H ALT Alkaline Phosphatase 136 H Total Creatine Kinase 2408 H CK-MB (CK-2) 17.6 H Total Protein Albumin Vitamin B12 Urine Creatinine Urine Total Protein 03/29/19 03/30/19 03/30/19 23:37 05:58 10:00 RBC Hgb Hct MCV MCH RDW Lymph % (Auto) [place] % (Auto) Lymph # [place] # Seg Neutrophils % Seg Neutrophils # POC ABG pH 7.143 L ABG pH POC ABG pCO2 50.5 H POC ABG pO2 159 H ABG pO2 ABG HCO3 ABG O2 Saturation ABG Base Excess ABG Hemoglobin Oxyhemoglobin Sodium Potassium Chloride Carbon Dioxide BUN Creatinine Glucose POC Glucose Hemoglobin A1c 6.4 H Phosphorus Magnesium Total Bilirubin AST ALT Alkaline Phosphatase Total Creatine Kinase CK-MB (CK-2) Total Protein Albumin Vitamin B12 Urine Creatinine 227.1 H Urine Total Protein 31 H 03/30/19 03/30/19 03/30/19 10:00 10:12 10:12 RBC 3.17 L Hgb 10.5 L Hct 31.8 L MCV 100 H MCH 33 H RDW Lymph % (Auto) 8.1 L [place] % (Auto) Lymph # 0.5 L [place] # Seg Neutrophils % 88.0 H Seg Neutrophils # POC ABG pH ABG pH POC ABG pCO2 POC ABG pO2 ABG pO2 ABG HCO3 ABG O2 Saturation ABG Base Excess ABG Hemoglobin Oxyhemoglobin Sodium 132 L Potassium 6.6 H* Chloride 91.9 L Carbon Dioxide 19 L BUN 89 H Creatinine 7.2 H Glucose 302 H POC Glucose Hemoglobin A1c Phosphorus 7.50 H Magnesium Total Bilirubin AST ALT Alkaline Phosphatase Total Creatine Kinase CK-MB (CK-2) Total Protein Albumin Vitamin B12 Urine Creatinine 230.8 H Urine Total Protein 32 H 03/30/19 03/30/19 03/30/19 11:42 16:54 17:45 RBC Hgb Hct MCV MCH RDW Lymph % (Auto) [place] % (Auto) Lymph # [place] # Seg Neutrophils % Seg Neutrophils # POC ABG pH ABG pH 7.294 L POC ABG pCO2 POC ABG pO2 ABG pO2 67.1 L ABG HCO3 19.4 L ABG O2 Saturation 91.4 L ABG Base Excess -6.7 L ABG Hemoglobin 9.9 L Oxyhemoglobin 89.4 L Sodium Potassium Chloride Carbon Dioxide BUN Creatinine Glucose POC Glucose 275 H 361 H Hemoglobin A1c Phosphorus Magnesium Total Bilirubin AST ALT Alkaline Phosphatase Total Creatine Kinase CK-MB (CK-2) Total Protein Albumin Vitamin B12 Urine Creatinine Urine Total Protein 03/30/19 03/30/19 03/30/19 20:00 20:28 23:27 RBC Hgb Hct MCV MCH RDW Lymph % (Auto) [place] % (Auto) Lymph # [place] # Seg Neutrophils % Seg Neutrophils # POC ABG pH ABG pH 7.293 L POC ABG pCO2 POC ABG pO2 ABG pO2 ABG HCO3 ABG O2 Saturation ABG Base Excess -5.9 L ABG Hemoglobin 11.0 L Oxyhemoglobin 94.1 L Sodium 134 L Potassium Chloride 92.9 L Carbon Dioxide 19 L BUN 93 H Creatinine 5.5 H Glucose 374 H POC Glucose 372 H Hemoglobin A1c Phosphorus Magnesium Total Bilirubin AST ALT Alkaline Phosphatase Total Creatine Kinase CK-MB (CK-2) Total Protein Albumin Vitamin B12 Urine Creatinine Urine Total Protein 03/31/19 03/31/19 03/31/19 04:39 04:39 05:27 RBC 3.08 L Hgb 10.3 L Hct 30.6 L MCV 99 H MCH 33 H RDW Lymph % (Auto) 6.5 L [place] % (Auto) Lymph # 0.3 L [place] # Seg Neutrophils % 86.6 H Seg Neutrophils # POC ABG pH ABG pH POC ABG pCO2 POC ABG pO2 ABG pO2 ABG HCO3 ABG O2 Saturation ABG Base Excess ABG Hemoglobin Oxyhemoglobin Sodium 135 L Potassium Chloride 92.7 L Carbon Dioxide BUN 92 H Creatinine 4.5 H Glucose 344 H POC Glucose 354 H Hemoglobin A1c Phosphorus Magnesium Total Bilirubin AST ALT Alkaline Phosphatase Total Creatine Kinase CK-MB (CK-2) Total Protein Albumin Vitamin B12 Urine Creatinine Urine Total Protein 03/31/19 03/31/19 03/31/19 08:03 12:08 17:08 RBC Hgb Hct MCV MCH RDW Lymph % (Auto) [place] % (Auto) Lymph # [place] # Seg Neutrophils % Seg Neutrophils # POC ABG pH ABG pH POC ABG pCO2 POC ABG pO2 ABG pO2 ABG HCO3 ABG O2 Saturation ABG Base Excess ABG Hemoglobin Oxyhemoglobin Sodium Potassium Chloride Carbon Dioxide BUN Creatinine Glucose POC Glucose 375 H 410 H 361 H Hemoglobin A1c Phosphorus Magnesium Total Bilirubin AST ALT Alkaline Phosphatase Total Creatine Kinase CK-MB (CK-2) Total Protein Albumin Vitamin B12 Urine Creatinine Urine Total Protein 03/31/19 04/01/19 04/01/19 23:12 05:22 08:28 RBC Hgb Hct MCV MCH RDW Lymph % (Auto) [place] % (Auto) Lymph # [place] # Seg Neutrophils % Seg Neutrophils # POC ABG pH ABG pH POC ABG pCO2 POC ABG pO2 ABG pO2 ABG HCO3 ABG O2 Saturation ABG Base Excess ABG Hemoglobin Oxyhemoglobin Sodium Potassium Chloride Carbon Dioxide BUN Creatinine Glucose POC Glucose 355 H 300 H 259 H Hemoglobin A1c Phosphorus Magnesium Total Bilirubin AST ALT Alkaline Phosphatase Total Creatine Kinase CK-MB (CK-2) Total Protein Albumin Vitamin B12 Urine Creatinine Urine Total Protein 04/01/19 04/01/19 04/01/19 11:35 16:18 23:27 RBC Hgb Hct MCV MCH RDW Lymph % (Auto) [place] % (Auto) Lymph # [place] # Seg Neutrophils % Seg Neutrophils # POC ABG pH ABG pH POC ABG pCO2 POC ABG pO2 ABG pO2 ABG HCO3 ABG O2 Saturation ABG Base Excess ABG Hemoglobin Oxyhemoglobin Sodium Potassium Chloride Carbon Dioxide BUN Creatinine Glucose POC Glucose 283 H 169 H 344 H Hemoglobin A1c Phosphorus Magnesium Total Bilirubin AST ALT Alkaline Phosphatase Total Creatine Kinase CK-MB (CK-2) Total Protein Albumin Vitamin B12 Urine Creatinine Urine Total Protein 04/02/19 04/02/19 04/02/19 02:39 03:09 05:11 RBC Hgb Hct MCV MCH RDW Lymph % (Auto) [place] % (Auto) Lymph # [place] # Seg Neutrophils % Seg Neutrophils # POC ABG pH 7.827 H ABG pH POC ABG pCO2 POC ABG pO2 157 H ABG pO2 ABG HCO3 ABG O2 Saturation ABG Base Excess ABG Hemoglobin Oxyhemoglobin Sodium 149 H D Potassium 3.3 L Chloride Carbon Dioxide 35 H D BUN 78 H Creatinine 2.2 H D Glucose 185 H POC Glucose 252 H Hemoglobin A1c Phosphorus Magnesium Total Bilirubin AST ALT Alkaline Phosphatase Total Creatine Kinase CK-MB (CK-2) Total Protein Albumin Vitamin B12 Urine Creatinine Urine Total Protein 04/02/19 04/02/19 04/02/19 05:31 08:28 11:46 RBC Hgb Hct MCV MCH RDW Lymph % (Auto) [place] % (Auto) Lymph # [place] # Seg Neutrophils % Seg Neutrophils # POC ABG pH ABG pH POC ABG pCO2 POC ABG pO2 ABG pO2 ABG HCO3 ABG O2 Saturation ABG Base Excess ABG Hemoglobin Oxyhemoglobin Sodium Potassium Chloride Carbon Dioxide BUN Creatinine Glucose POC Glucose 160 H 140 H 186 H Hemoglobin A1c Phosphorus Magnesium Total Bilirubin AST ALT Alkaline Phosphatase Total Creatine Kinase CK-MB (CK-2) Total Protein Albumin Vitamin B12 Urine Creatinine Urine Total Protein 04/02/19 04/02/19 04/03/19 14:45 20:59 00:23 RBC Hgb Hct MCV MCH RDW Lymph % (Auto) [place] % (Auto) Lymph # [place] # Seg Neutrophils % Seg Neutrophils # POC ABG pH ABG pH POC ABG pCO2 POC ABG pO2 ABG pO2 73.3 L ABG HCO3 34.3 H ABG O2 Saturation ABG Base Excess 8.7 H ABG Hemoglobin 11.1 L Oxyhemoglobin 93.5 L Sodium Potassium Chloride Carbon Dioxide BUN Creatinine Glucose POC Glucose 195 H 211 H Hemoglobin A1c Phosphorus Magnesium Total Bilirubin AST ALT Alkaline Phosphatase Total Creatine Kinase CK-MB (CK-2) Total Protein Albumin Vitamin B12 Urine Creatinine Urine Total Protein 04/03/19 04/03/19 04/03/19 05:48 05:48 06:00 RBC 3.46 L Hgb 11.5 L Hct 34.8 L MCV 101 H MCH 33 H RDW 15.5 H Lymph % (Auto) 13.2 L [place] % (Auto) 8.8 H Lymph # 0.8 L [place] # Seg Neutrophils % 77.8 H Seg Neutrophils # POC ABG pH ABG pH POC ABG pCO2 POC ABG pO2 ABG pO2 ABG HCO3 ABG O2 Saturation ABG Base Excess ABG Hemoglobin Oxyhemoglobin Sodium 152 H Potassium 3.1 L Chloride Carbon Dioxide 34 H BUN 71 H Creatinine 1.8 H Glucose 128 H POC Glucose 124 H Hemoglobin A1c Phosphorus Magnesium 2.50 H Total Bilirubin AST ALT Alkaline Phosphatase Total Creatine Kinase CK-MB (CK-2) Total Protein Albumin 3.6 L Vitamin B12 Urine Creatinine Urine Total Protein 04/03/19 04/03/19 04/03/19 12:42 21:00 22:04 RBC Hgb Hct MCV MCH RDW Lymph % (Auto) [place] % (Auto) Lymph # [place] # Seg Neutrophils % Seg Neutrophils # POC ABG pH ABG pH POC ABG pCO2 POC ABG pO2 ABG pO2 ABG HCO3 ABG O2 Saturation ABG Base Excess ABG Hemoglobin Oxyhemoglobin Sodium Potassium Chloride Carbon Dioxide BUN Creatinine Glucose POC Glucose 192 H 57 L Hemoglobin A1c Phosphorus Magnesium Total Bilirubin AST ALT Alkaline Phosphatase Total Creatine Kinase CK-MB (CK-2) Total Protein Albumin Vitamin B12 1568 H Urine Creatinine Urine Total Protein 04/03/19 04/04/19 04/04/19 23:21 00:42 04:23 RBC Hgb Hct MCV MCH RDW Lymph % (Auto) [place] % (Auto) Lymph # [place] # Seg Neutrophils % Seg Neutrophils # POC ABG pH ABG pH POC ABG pCO2 POC ABG pO2 ABG pO2 ABG HCO3 ABG O2 Saturation ABG Base Excess ABG Hemoglobin Oxyhemoglobin Sodium 155 H Potassium 3.1 L Chloride 107.8 H Carbon Dioxide 34 H BUN 64 H Creatinine 1.9 H Glucose POC Glucose 69 L 63 L Hemoglobin A1c Phosphorus Magnesium Total Bilirubin AST ALT Alkaline Phosphatase Total Creatine Kinase CK-MB (CK-2) Total Protein Albumin Vitamin B12 Urine Creatinine Urine Total Protein 04/04/19 04/04/19 04/04/19 11:46 16:31 22:12 RBC Hgb Hct MCV MCH RDW Lymph % (Auto) [place] % (Auto) Lymph # [place] # Seg Neutrophils % Seg Neutrophils # POC ABG pH ABG pH POC ABG pCO2 POC ABG pO2 ABG pO2 ABG HCO3 ABG O2 Saturation ABG Base Excess ABG Hemoglobin Oxyhemoglobin Sodium Potassium Chloride Carbon Dioxide BUN Creatinine Glucose POC Glucose 111 H 174 H 229 H Hemoglobin A1c Phosphorus Magnesium Total Bilirubin AST ALT Alkaline Phosphatase Total Creatine Kinase CK-MB (CK-2) Total Protein Albumin Vitamin B12 Urine Creatinine Urine Total Protein 04/05/19 04/05/19 04/05/19 05:08 07:46 11:27 RBC Hgb Hct MCV MCH RDW Lymph % (Auto) [place] % (Auto) Lymph # [place] # Seg Neutrophils % Seg Neutrophils # POC ABG pH ABG pH POC ABG pCO2 POC ABG pO2 ABG pO2 ABG HCO3 ABG O2 Saturation ABG Base Excess ABG Hemoglobin Oxyhemoglobin Sodium Potassium Chloride Carbon Dioxide BUN Creatinine Glucose POC Glucose 202 H 233 H 241 H Hemoglobin A1c Phosphorus Magnesium Total Bilirubin AST ALT Alkaline Phosphatase Total Creatine Kinase CK-MB (CK-2) Total Protein Albumin Vitamin B12 Urine Creatinine Urine Total Protein 04/05/19 04/05/19 04/05/19 12:58 16:15 21:56 RBC Hgb Hct MCV MCH RDW Lymph % (Auto) [place] % (Auto) Lymph # [place] # Seg Neutrophils % Seg Neutrophils # POC ABG pH ABG pH POC ABG pCO2 POC ABG pO2 ABG pO2 ABG HCO3 ABG O2 Saturation ABG Base Excess ABG Hemoglobin Oxyhemoglobin Sodium 149 H Potassium Chloride Carbon Dioxide 31 H BUN 67 H Creatinine 1.9 H Glucose 230 H POC Glucose 143 H 289 H Hemoglobin A1c Phosphorus Magnesium Total Bilirubin AST ALT Alkaline Phosphatase Total Creatine Kinase CK-MB (CK-2) Total Protein Albumin Vitamin B12 Urine Creatinine Urine Total Protein 04/06/19 04/06/19 04/06/19 05:25 07:12 07:52 RBC Hgb Hct MCV MCH RDW Lymph % (Auto) [place] % (Auto) Lymph # [place] # Seg Neutrophils % Seg Neutrophils # POC ABG pH ABG pH POC ABG pCO2 POC ABG pO2 ABG pO2 ABG HCO3 ABG O2 Saturation ABG Base Excess ABG Hemoglobin Oxyhemoglobin Sodium Potassium Chloride Carbon Dioxide BUN 56 H Creatinine 1.7 H Glucose 233 H POC Glucose 234 H 225 H Hemoglobin A1c Phosphorus Magnesium Total Bilirubin AST ALT Alkaline Phosphatase Total Creatine Kinase CK-MB (CK-2) Total Protein Albumin Vitamin B12 Urine Creatinine Urine Total Protein 04/06/19 04/06/19 04/06/19 12:12 16:58 21:53 RBC Hgb Hct MCV MCH RDW Lymph % (Auto) [place] % (Auto) Lymph # [place] # Seg Neutrophils % Seg Neutrophils # POC ABG pH ABG pH POC ABG pCO2 POC ABG pO2 ABG pO2 ABG HCO3 ABG O2 Saturation ABG Base Excess ABG Hemoglobin Oxyhemoglobin Sodium Potassium Chloride Carbon Dioxide BUN Creatinine Glucose POC Glucose 275 H 255 H 234 H Hemoglobin A1c Phosphorus Magnesium Total Bilirubin AST ALT Alkaline Phosphatase Total Creatine Kinase CK-MB (CK-2) Total Protein Albumin Vitamin B12 Urine Creatinine Urine Total Protein 04/07/19 04/07/19 04/07/19 02:51 10:40 10:40 RBC 3.51 L Hgb 11.4 L Hct 34.8 L MCV 99 H MCH RDW Lymph % (Auto) 6.0 L [place] % (Auto) Lymph # 0.6 L [place] # Seg Neutrophils % 86.9 H Seg Neutrophils # 9.4 H POC ABG pH ABG pH POC ABG pCO2 POC ABG pO2 ABG pO2 ABG HCO3 ABG O2 Saturation ABG Base Excess ABG Hemoglobin Oxyhemoglobin Sodium Potassium Chloride Carbon Dioxide 34 H BUN 50 H Creatinine Glucose 298 H POC Glucose 219 H Hemoglobin A1c Phosphorus Magnesium Total Bilirubin AST ALT Alkaline Phosphatase Total Creatine Kinase CK-MB (CK-2) Total Protein Albumin Vitamin B12 Urine Creatinine Urine Total Protein 04/07/19 04/07/19 04/07/19 11:53 18:38 22:33 RBC Hgb Hct MCV MCH RDW Lymph % (Auto) [place] % (Auto) Lymph # [place] # Seg Neutrophils % Seg Neutrophils # POC ABG pH ABG pH POC ABG pCO2 POC ABG pO2 ABG pO2 ABG HCO3 ABG O2 Saturation ABG Base Excess ABG Hemoglobin Oxyhemoglobin Sodium Potassium Chloride Carbon Dioxide BUN Creatinine Glucose POC Glucose 232 H 175 H 130 H Hemoglobin A1c Phosphorus Magnesium Total Bilirubin AST ALT Alkaline Phosphatase Total Creatine Kinase CK-MB (CK-2) Total Protein Albumin Vitamin B12 Urine Creatinine Urine Total Protein 04/08/19 04/08/19 04/08/19 05:42 06:19 07:19 RBC Hgb Hct MCV MCH RDW Lymph % (Auto) [place] % (Auto) Lymph # [place] # Seg Neutrophils % Seg Neutrophils # POC ABG pH ABG pH POC ABG pCO2 POC ABG pO2 ABG pO2 ABG HCO3 ABG O2 Saturation ABG Base Excess ABG Hemoglobin Oxyhemoglobin Sodium 149 H Potassium 3.5 L Chloride Carbon Dioxide 34 H BUN 40 H Creatinine Glucose POC Glucose 53 L 129 H Hemoglobin A1c Phosphorus Magnesium Total Bilirubin AST ALT Alkaline Phosphatase Total Creatine Kinase CK-MB (CK-2) Total Protein Albumin Vitamin B12 Urine Creatinine Urine Total Protein 04/08/19 04/08/19 04/08/19 11:15 16:58 23:51 RBC Hgb Hct MCV MCH RDW Lymph % (Auto) [place] % (Auto) Lymph # [place] # Seg Neutrophils % Seg Neutrophils # POC ABG pH ABG pH POC ABG pCO2 POC ABG pO2 ABG pO2 ABG HCO3 ABG O2 Saturation ABG Base Excess ABG Hemoglobin Oxyhemoglobin Sodium Potassium Chloride Carbon Dioxide BUN Creatinine Glucose POC Glucose 223 H 173 H 135 H Hemoglobin A1c Phosphorus Magnesium Total Bilirubin AST ALT Alkaline Phosphatase Total Creatine Kinase CK-MB (CK-2) Total Protein Albumin Vitamin B12 Urine Creatinine Urine Total Protein 04/09/19 04/09/19 04/09/19 09:09 11:28 13:23 RBC Hgb Hct MCV MCH RDW Lymph % (Auto) [place] % (Auto) Lymph # [place] # Seg Neutrophils % Seg Neutrophils # POC ABG pH ABG pH POC ABG pCO2 POC ABG pO2 ABG pO2 ABG HCO3 ABG O2 Saturation ABG Base Excess ABG Hemoglobin Oxyhemoglobin Sodium Potassium Chloride Carbon Dioxide 35 H BUN 34 H Creatinine Glucose 64 L 101 H POC Glucose 56 L Hemoglobin A1c Phosphorus Magnesium Total Bilirubin AST ALT Alkaline Phosphatase Total Creatine Kinase CK-MB (CK-2) Total Protein Albumin Vitamin B12 Urine Creatinine Urine Total Protein 04/09/19 04/09/19 04/10/19 17:53 23:11 09:10 RBC 3.26 L Hgb 10.8 L Hct 31.9 L MCV 98 H MCH 33 H RDW Lymph % (Auto) [place] % (Auto) 9.4 H Lymph # [place] # 0.9 H Seg Neutrophils % Seg Neutrophils # POC ABG pH ABG pH POC ABG pCO2 POC ABG pO2 ABG pO2 ABG HCO3 ABG O2 Saturation ABG Base Excess ABG Hemoglobin Oxyhemoglobin Sodium Potassium Chloride Carbon Dioxide BUN Creatinine Glucose POC Glucose 149 H 178 H Hemoglobin A1c Phosphorus Magnesium Total Bilirubin AST ALT Alkaline Phosphatase Total Creatine Kinase CK-MB (CK-2) Total Protein Albumin Vitamin B12 Urine Creatinine Urine Total Protein 04/10/19 09:10 RBC Hgb Hct MCV MCH RDW Lymph % (Auto) [place] % (Auto) Lymph # [place] # Seg Neutrophils % Seg Neutrophils # POC ABG pH ABG pH POC ABG pCO2 POC ABG pO2 ABG pO2 ABG HCO3 ABG O2 Saturation ABG Base Excess ABG Hemoglobin Oxyhemoglobin Sodium Potassium 3.5 L Chloride Carbon Dioxide 32 H BUN 29 H Creatinine Glucose 101 H POC Glucose Hemoglobin A1c Phosphorus Magnesium Total Bilirubin 1.30 H AST 49 H ALT 59 H Alkaline Phosphatase Total Creatine Kinase CK-MB (CK-2) Total Protein 5.3 L Albumin 2.6 L Vitamin B12 Urine Creatinine Urine Total Protein
--- NOTE | 2019-04-10 19:31 | Progress Note ---
Assessment and Plan 58M who pw sob -Acute metabolic encephalopathy likely due to etoh, and getting high dose ativan dc ativan for now, patient hasn't had a drink in over a week haldol prn, olanzapine prn, MR brain Showed no stoke , consult -Acute and chronic respiratory failure secondary to COPD exacerbation taper steroids per pulmonology -Afib with rvr and hypercoaguable state mgt per cardiology, rate control improved, cont eliquis -Acute renal failure due to ATN Cr down to 1.3 nephrology following, improving -Hypokalemia Corrected -Hypernatremia corrected Improved, change IVF to 1/4NS -Hypokalemia supplemented Metabolic acidosis - sp bicarbonate drip, resolved -Polysubstance abuse/etoh withdrawal -uds pos for amphetamines, per Tracy, no documented hx of amphetamine abuse -he was rx with CIWA protocol for etoh abuse, ativan now dc -Type 2 diabetes mellitus with persistent hyperglycemia - Continue insulin coverage DVT prophylaxis - On heparin Called and discussed with pt's brotherYael Subjective Date of service: 04/10/19 Principal diagnosis: Afib Interval history: Still confused and talks irrationality. Was said to have removed monitor car operator and threw it at his seater per pt's nurse. Objective - Exam Narrative Exam: Constitutional: Obese. Sitting up in bed on talking irrational. Confused. Head: Normocephalic atraumatic Eyes: Pupils are equal round and reactive to light Nose: No enlarged turbinates, no septal deviation. Mouth: Moist mucous membranes. Neck: Supple no thyromegaly. No bruit. No JVD Heart: Regular rate and rhythm, S1-S2 normal. No rubs murmurs or gallop Lungs: Clear to auscultation bilaterally. no rales or rhonchi Abdomen: Soft, nontender. Bowel sound are present. Extremities: No edema, no cyanosis, no clubbing. Neuro: Alert oriented Oriented x3. No focal sensory or motor deficit. Skin: No rashes or hyperpigmented spots Musculoskeletal system: No joint pain or swelling Hematological: No petechia or subcutanous hemorrhages. Immunological: No multiple septic spots on the skin Lymphatic: No generalized lymphadenopathy Psychiatry: Confused - Constitutional Vitals: Vital Signs - 12hr 04/10/19 04/10/19 04/10/19 08:00 08:06 10:00 Temperature Pulse Rate Pulse Rate [ 74 Anterior Bilateral Throughout] Pulse Rate [ 79 Apical] Respiratory 20 Rate Respiratory 20 Rate [Anterior Bilateral Throughout] Blood Pressure O2 Sat by Pulse 97 Oximetry 04/10/19 04/10/19 04/10/19 12:57 14:00 14:25 Temperature 97.6 F Pulse Rate 79 Pulse Rate [ 76 74 Anterior Bilateral Throughout] Pulse Rate [ Apical] Respiratory 18 Rate Respiratory 20 20 Rate [Anterior Bilateral Throughout] Blood Pressure 87/56 O2 Sat by Pulse 95 Oximetry 04/10/19 04/10/19 16:35 18:05 Temperature 97.6 F Pulse Rate 62 73 Pulse Rate [ Anterior Bilateral Throughout] Pulse Rate [ Apical] Respiratory 20 Rate Respiratory Rate [Anterior Bilateral Throughout] Blood Pressure 104/68 98/62 O2 Sat by Pulse 95 93 Oximetry - Labs CBC & Chem 7: 04/10/19 09:10 04/10/19 09:10 Labs: Abnormal lab results 04/09/19 04/10/19 04/10/19 Range/Units 23:11 09:10 09:10 RBC 3.26 L (3.65-5.03) M/mm3 Hgb 10.8 L (11.8-15.2) gm/dl Hct 31.9 L (35.5-45.6) % MCV 98 H (84-94) fl MCH 33 H (28-32) pg [place] % (Auto) 9.4 H (0.0-7.3) % [place] # 0.9 H (0.0-0.8) K/mm3 Potassium 3.5 L (3.6-5.0) mmol/L Carbon Dioxide 32 H (22-30) mmol/L BUN 29 H (9-20) mg/dL Glucose 101 H (75-100) mg/dL POC Glucose 178 H (70-105) Total Bilirubin 1.30 H (0.1-1.2) mg/dL AST 49 H (5-40) units/L ALT 59 H (7-56) units/L Total Protein 5.3 L (6.3-8.2) g/dL Albumin 2.6 L (3.9-5) g/dL 04/10/19 04/10/19 Range/Units 12:52 16:31 RBC (3.65-5.03) M/mm3 Hgb (11.8-15.2) gm/dl Hct (35.5-45.6) % MCV (84-94) fl MCH (28-32) pg [place] % (Auto) (0.0-7.3) % [place] # (0.0-0.8) K/mm3 Potassium (3.6-5.0) mmol/L Carbon Dioxide (22-30) mmol/L BUN (9-20) mg/dL Glucose (75-100) mg/dL POC Glucose 130 H 144 H (70-105) Total Bilirubin (0.1-1.2) mg/dL AST (5-40) units/L ALT (7-56) units/L Total Protein (6.3-8.2) g/dL Albumin (3.9-5) g/dL
[2019-04-10] MEDS: KCL 10MEQ/100ML 10 MEQ/100 ML BAG IV SCH (22:36)
[2019-04-11] MEDS: REGLAN IV PRN (01:32)
[2019-04-11] MEDS: KCL 10MEQ/100ML 10 MEQ/100 ML BAG IV SCH (01:37)
[2019-04-11] MEDS: HumaLOG SUB-Q SCH ×8 (01:39→23:08)
[2019-04-11] MEDS: HALDOL PO PRN (03:51)
[2019-04-11] MEDS: TESSALON PERLES PO SCH ×3 (07:23→22:54)
[2019-04-11] MEDS: PULMICORT IH SCH ×2 (07:25→20:25)
[2019-04-11] MEDS: DUONEB *Not for PRN Use IH SCH ×3 (07:26→20:25)
[2019-04-11] MEDS: SPIRIVA IH SCH ×2 (07:26→10:34)
[2019-04-11] MEDS: ZESTRIL PO SCH (10:00)
[2019-04-11] MEDS: LANTUS SUB-Q SCH ×2 (10:00→22:17)
[2019-04-11] MEDS: LOPRESSOR PO SCH ×2 (10:00→22:18)
[2019-04-11] MEDS: CEPHULAC PO SCH (11:08)
[2019-04-11] MEDS: PROzac PO SCH (11:08)
[2019-04-11] MEDS: GLUCOPHAGE PO SCH ×2 (11:09→20:04)
[2019-04-11] MEDS: PEPCID PO SCH ×2 (11:10→22:18)
[2019-04-11] MEDS: PROTONIX PO SCH (11:10)
[2019-04-11] MEDS: ELIQUIS PO SCH ×2 (11:10→23:11)
[2019-04-11] MEDS: SODIUM CHLORIDE FLUSH SYRINGE 10 ML IV SCH ×2 (11:12→22:20)
[2019-04-11] MEDS: DELTASONE PO SCH (11:13)
[2019-04-11] MEDS: CARDIZEM CD PO SCH (11:13)
--- NOTE | 2019-04-11 13:19 | Progress Note ---
Assessment and Plan 58 y/o obese male with altered mental status, concern for ETOH withdrawal on CIWA and untreated HUMA and COPD. 1. Continue steroids at 20, will likely drop to 10 on Monday. 2. Continue scheduled duonebs and BID pulmicort 3. Blood pressure and Heart rate control, cards changed to Long acting dilt 4. Weight loss 5. Will continue to follow. Subjective Date of service: 04/11/19 Principal diagnosis: Afib Interval history: Asleep in room on cannula. No family present. Did not awaken. Decreased steroids today and appears to be tolerating. Objective Vital Signs - 12hr 04/11/19 04/11/19 04/11/19 03:03 07:27 07:50 Temperature Pulse Rate 65 Pulse Rate [ 69 Anterior Bilateral Throughout] Respiratory 26 H Rate Respiratory 20 Rate [Anterior Bilateral Throughout] Blood Pressure O2 Sat by Pulse 96 95 Oximetry 04/11/19 04/11/19 04/11/19 10:17 10:19 12:05 Temperature Pulse Rate 79 78 87 Pulse Rate [ Anterior Bilateral Throughout] Respiratory 20 Rate Respiratory Rate [Anterior Bilateral Throughout] Blood Pressure 100/51 O2 Sat by Pulse 92 95 95 Oximetry 04/11/19 12:06 Temperature 97.9 F Pulse Rate Pulse Rate [ Anterior Bilateral Throughout] Respiratory 22 Rate Respiratory Rate [Anterior Bilateral Throughout] Blood Pressure 109/50 O2 Sat by Pulse Oximetry Constitutional: other (obese, confused, agitated) Eyes: non-icteric ENT: oropharynx moist Neck: supple Ascultation: Bilateral: clear, diminished breath sounds, wheezes Percussion: Bilateral: not dull Cardiovascular: irregular rhythm (ir/ir, no mrg) Gastrointestinal: normoactive bowel sounds Integumentary: normal Extremities: no cyanosis, no edema, pink and warm Neurologic: non-focal exam Psychiatric: other (unable to assess) CBC and BMP: 04/10/19 09:10 04/10/19 09:10 ABG, PT/INR, D-dimer: ABG POC ABG pH 7.827 (7.35-7.45) H 04/02/19 03:09 ABG pH 7.435 pH Units (7.350-7.450) 04/02/19 14:45 ABG pCO2 52.3 mm Hg 04/02/19 14:45 POC ABG pO2 157 (80-105) H 04/02/19 03:09 ABG pO2 73.3 mm Hg (80.0-90.0) L 04/02/19 14:45 POC ABG HCO3 30.3 (22-26 mml/L) 04/02/19 03:09 POC ABG Total CO2 31 (23-27mmol/L) 04/02/19 03:09 POC ABG O2 Sat 100 04/02/19 03:09 ABG O2 Saturation 95.3 % (95.0-99.0) 04/02/19 14:45 Abnormal lab findings: Abnormal Labs 03/29/19 03/29/19 03/29/19 13:18 13:18 18:22 RBC 3.24 L Hgb 10.6 L Hct 33.2 L MCV 103 H MCH 33 H RDW 15.5 H Lymph % (Auto) 9.4 L Mason % (Auto) 7.8 H Lymph # 0.8 L Mason # Seg Neutrophils % 81.5 H Seg Neutrophils # POC ABG pH 7.122 L ABG pH POC ABG pCO2 45.4 H POC ABG pO2 ABG pO2 ABG HCO3 ABG O2 Saturation ABG Base Excess ABG Hemoglobin Oxyhemoglobin Sodium 132 L Potassium 6.6 H* Chloride 94.9 L Carbon Dioxide 14 L BUN 73 H Creatinine 8.6 H Glucose POC Glucose Hemoglobin A1c Phosphorus Magnesium Total Bilirubin AST 48 H ALT Alkaline Phosphatase 136 H Total Creatine Kinase 2408 H CK-MB (CK-2) 17.6 H Total Protein Albumin Vitamin B12 Urine Creatinine Urine Total Protein 03/29/19 03/30/19 03/30/19 23:37 05:58 10:00 RBC Hgb Hct MCV MCH RDW Lymph % (Auto) Mason % (Auto) Lymph # Mason # Seg Neutrophils % Seg Neutrophils # POC ABG pH 7.143 L ABG pH POC ABG pCO2 50.5 H POC ABG pO2 159 H ABG pO2 ABG HCO3 ABG O2 Saturation ABG Base Excess ABG Hemoglobin Oxyhemoglobin Sodium Potassium Chloride Carbon Dioxide BUN Creatinine Glucose POC Glucose Hemoglobin A1c 6.4 H Phosphorus Magnesium Total Bilirubin AST ALT Alkaline Phosphatase Total Creatine Kinase CK-MB (CK-2) Total Protein Albumin Vitamin B12 Urine Creatinine 227.1 H Urine Total Protein 31 H 03/30/19 03/30/19 03/30/19 10:00 10:12 10:12 RBC 3.17 L Hgb 10.5 L Hct 31.8 L MCV 100 H MCH 33 H RDW Lymph % (Auto) 8.1 L Mason % (Auto) Lymph # 0.5 L Mason # Seg Neutrophils % 88.0 H Seg Neutrophils # POC ABG pH ABG pH POC ABG pCO2 POC ABG pO2 ABG pO2 ABG HCO3 ABG O2 Saturation ABG Base Excess ABG Hemoglobin Oxyhemoglobin Sodium 132 L Potassium 6.6 H* Chloride 91.9 L Carbon Dioxide 19 L BUN 89 H Creatinine 7.2 H Glucose 302 H POC Glucose Hemoglobin A1c Phosphorus 7.50 H Magnesium Total Bilirubin AST ALT Alkaline Phosphatase Total Creatine Kinase CK-MB (CK-2) Total Protein Albumin Vitamin B12 Urine Creatinine 230.8 H Urine Total Protein 32 H 03/30/19 03/30/19 03/30/19 11:42 16:54 17:45 RBC Hgb Hct MCV MCH RDW Lymph % (Auto) Mason % (Auto) Lymph # Mason # Seg Neutrophils % Seg Neutrophils # POC ABG pH ABG pH 7.294 L POC ABG pCO2 POC ABG pO2 ABG pO2 67.1 L ABG HCO3 19.4 L ABG O2 Saturation 91.4 L ABG Base Excess -6.7 L ABG Hemoglobin 9.9 L Oxyhemoglobin 89.4 L Sodium Potassium Chloride Carbon Dioxide BUN Creatinine Glucose POC Glucose 275 H 361 H Hemoglobin A1c Phosphorus Magnesium Total Bilirubin AST ALT Alkaline Phosphatase Total Creatine Kinase CK-MB (CK-2) Total Protein Albumin Vitamin B12 Urine Creatinine Urine Total Protein 03/30/19 03/30/19 03/30/19 20:00 20:28 23:27 RBC Hgb Hct MCV MCH RDW Lymph % (Auto) Mason % (Auto) Lymph # Mason # Seg Neutrophils % Seg Neutrophils # POC ABG pH ABG pH 7.293 L POC ABG pCO2 POC ABG pO2 ABG pO2 ABG HCO3 ABG O2 Saturation ABG Base Excess -5.9 L ABG Hemoglobin 11.0 L Oxyhemoglobin 94.1 L Sodium 134 L Potassium Chloride 92.9 L Carbon Dioxide 19 L BUN 93 H Creatinine 5.5 H Glucose 374 H POC Glucose 372 H Hemoglobin A1c Phosphorus Magnesium Total Bilirubin AST ALT Alkaline Phosphatase Total Creatine Kinase CK-MB (CK-2) Total Protein Albumin Vitamin B12 Urine Creatinine Urine Total Protein 03/31/19 03/31/19 03/31/19 04:39 04:39 05:27 RBC 3.08 L Hgb 10.3 L Hct 30.6 L MCV 99 H MCH 33 H RDW Lymph % (Auto) 6.5 L Mason % (Auto) Lymph # 0.3 L Mason # Seg Neutrophils % 86.6 H Seg Neutrophils # POC ABG pH ABG pH POC ABG pCO2 POC ABG pO2 ABG pO2 ABG HCO3 ABG O2 Saturation ABG Base Excess ABG Hemoglobin Oxyhemoglobin Sodium 135 L Potassium Chloride 92.7 L Carbon Dioxide BUN 92 H Creatinine 4.5 H Glucose 344 H POC Glucose 354 H Hemoglobin A1c Phosphorus Magnesium Total Bilirubin AST ALT Alkaline Phosphatase Total Creatine Kinase CK-MB (CK-2) Total Protein Albumin Vitamin B12 Urine Creatinine Urine Total Protein 03/31/19 03/31/19 03/31/19 08:03 12:08 17:08 RBC Hgb Hct MCV MCH RDW Lymph % (Auto) Mason % (Auto) Lymph # Mason # Seg Neutrophils % Seg Neutrophils # POC ABG pH ABG pH POC ABG pCO2 POC ABG pO2 ABG pO2 ABG HCO3 ABG O2 Saturation ABG Base Excess ABG Hemoglobin Oxyhemoglobin Sodium Potassium Chloride Carbon Dioxide BUN Creatinine Glucose POC Glucose 375 H 410 H 361 H Hemoglobin A1c Phosphorus Magnesium Total Bilirubin AST ALT Alkaline Phosphatase Total Creatine Kinase CK-MB (CK-2) Total Protein Albumin Vitamin B12 Urine Creatinine Urine Total Protein 03/31/19 04/01/19 04/01/19 23:12 05:22 08:28 RBC Hgb Hct MCV MCH RDW Lymph % (Auto) Mason % (Auto) Lymph # Mason # Seg Neutrophils % Seg Neutrophils # POC ABG pH ABG pH POC ABG pCO2 POC ABG pO2 ABG pO2 ABG HCO3 ABG O2 Saturation ABG Base Excess ABG Hemoglobin Oxyhemoglobin Sodium Potassium Chloride Carbon Dioxide BUN Creatinine Glucose POC Glucose 355 H 300 H 259 H Hemoglobin A1c Phosphorus Magnesium Total Bilirubin AST ALT Alkaline Phosphatase Total Creatine Kinase CK-MB (CK-2) Total Protein Albumin Vitamin B12 Urine Creatinine Urine Total Protein 04/01/19 04/01/19 04/01/19 11:35 16:18 23:27 RBC Hgb Hct MCV MCH RDW Lymph % (Auto) Mason % (Auto) Lymph # Mason # Seg Neutrophils % Seg Neutrophils # POC ABG pH ABG pH POC ABG pCO2 POC ABG pO2 ABG pO2 ABG HCO3 ABG O2 Saturation ABG Base Excess ABG Hemoglobin Oxyhemoglobin Sodium Potassium Chloride Carbon Dioxide BUN Creatinine Glucose POC Glucose 283 H 169 H 344 H Hemoglobin A1c Phosphorus Magnesium Total Bilirubin AST ALT Alkaline Phosphatase Total Creatine Kinase CK-MB (CK-2) Total Protein Albumin Vitamin B12 Urine Creatinine Urine Total Protein 04/02/19 04/02/19 04/02/19 02:39 03:09 05:11 RBC Hgb Hct MCV MCH RDW Lymph % (Auto) Mason % (Auto) Lymph # Mason # Seg Neutrophils % Seg Neutrophils # POC ABG pH 7.827 H ABG pH POC ABG pCO2 POC ABG pO2 157 H ABG pO2 ABG HCO3 ABG O2 Saturation ABG Base Excess ABG Hemoglobin Oxyhemoglobin Sodium 149 H D Potassium 3.3 L Chloride Carbon Dioxide 35 H D BUN 78 H Creatinine 2.2 H D Glucose 185 H POC Glucose 252 H Hemoglobin A1c Phosphorus Magnesium Total Bilirubin AST ALT Alkaline Phosphatase Total Creatine Kinase CK-MB (CK-2) Total Protein Albumin Vitamin B12 Urine Creatinine Urine Total Protein 04/02/19 04/02/19 04/02/19 05:31 08:28 11:46 RBC Hgb Hct MCV MCH RDW Lymph % (Auto) Mason % (Auto) Lymph # Mason # Seg Neutrophils % Seg Neutrophils # POC ABG pH ABG pH POC ABG pCO2 POC ABG pO2 ABG pO2 ABG HCO3 ABG O2 Saturation ABG Base Excess ABG Hemoglobin Oxyhemoglobin Sodium Potassium Chloride Carbon Dioxide BUN Creatinine Glucose POC Glucose 160 H 140 H 186 H Hemoglobin A1c Phosphorus Magnesium Total Bilirubin AST ALT Alkaline Phosphatase Total Creatine Kinase CK-MB (CK-2) Total Protein Albumin Vitamin B12 Urine Creatinine Urine Total Protein 04/02/19 04/02/19 04/03/19 14:45 20:59 00:23 RBC Hgb Hct MCV MCH RDW Lymph % (Auto) Mason % (Auto) Lymph # Mason # Seg Neutrophils % Seg Neutrophils # POC ABG pH ABG pH POC ABG pCO2 POC ABG pO2 ABG pO2 73.3 L ABG HCO3 34.3 H ABG O2 Saturation ABG Base Excess 8.7 H ABG Hemoglobin 11.1 L Oxyhemoglobin 93.5 L Sodium Potassium Chloride Carbon Dioxide BUN Creatinine Glucose POC Glucose 195 H 211 H Hemoglobin A1c Phosphorus Magnesium Total Bilirubin AST ALT Alkaline Phosphatase Total Creatine Kinase CK-MB (CK-2) Total Protein Albumin Vitamin B12 Urine Creatinine Urine Total Protein 04/03/19 04/03/19 04/03/19 05:48 05:48 06:00 RBC 3.46 L Hgb 11.5 L Hct 34.8 L MCV 101 H MCH 33 H RDW 15.5 H Lymph % (Auto) 13.2 L Mason % (Auto) 8.8 H Lymph # 0.8 L Mason # Seg Neutrophils % 77.8 H Seg Neutrophils # POC ABG pH ABG pH POC ABG pCO2 POC ABG pO2 ABG pO2 ABG HCO3 ABG O2 Saturation ABG Base Excess ABG Hemoglobin Oxyhemoglobin Sodium 152 H Potassium 3.1 L Chloride Carbon Dioxide 34 H BUN 71 H Creatinine 1.8 H Glucose 128 H POC Glucose 124 H Hemoglobin A1c Phosphorus Magnesium 2.50 H Total Bilirubin AST ALT Alkaline Phosphatase Total Creatine Kinase CK-MB (CK-2) Total Protein Albumin 3.6 L Vitamin B12 Urine Creatinine Urine Total Protein 04/03/19 04/03/19 04/03/19 12:42 21:00 22:04 RBC Hgb Hct MCV MCH RDW Lymph % (Auto) Mason % (Auto) Lymph # Mason # Seg Neutrophils % Seg Neutrophils # POC ABG pH ABG pH POC ABG pCO2 POC ABG pO2 ABG pO2 ABG HCO3 ABG O2 Saturation ABG Base Excess ABG Hemoglobin Oxyhemoglobin Sodium Potassium Chloride Carbon Dioxide BUN Creatinine Glucose POC Glucose 192 H 57 L Hemoglobin A1c Phosphorus Magnesium Total Bilirubin AST ALT Alkaline Phosphatase Total Creatine Kinase CK-MB (CK-2) Total Protein Albumin Vitamin B12 1568 H Urine Creatinine Urine Total Protein 04/03/19 04/04/19 04/04/19 23:21 00:42 04:23 RBC Hgb Hct MCV MCH RDW Lymph % (Auto) Mason % (Auto) Lymph # Mason # Seg Neutrophils % Seg Neutrophils # POC ABG pH ABG pH POC ABG pCO2 POC ABG pO2 ABG pO2 ABG HCO3 ABG O2 Saturation ABG Base Excess ABG Hemoglobin Oxyhemoglobin Sodium 155 H Potassium 3.1 L Chloride 107.8 H Carbon Dioxide 34 H BUN 64 H Creatinine 1.9 H Glucose POC Glucose 69 L 63 L Hemoglobin A1c Phosphorus Magnesium Total Bilirubin AST ALT Alkaline Phosphatase Total Creatine Kinase CK-MB (CK-2) Total Protein Albumin Vitamin B12 Urine Creatinine Urine Total Protein 04/04/19 04/04/19 04/04/19 11:46 16:31 22:12 RBC Hgb Hct MCV MCH RDW Lymph % (Auto) Mason % (Auto) Lymph # Mason # Seg Neutrophils % Seg Neutrophils # POC ABG pH ABG pH POC ABG pCO2 POC ABG pO2 ABG pO2 ABG HCO3 ABG O2 Saturation ABG Base Excess ABG Hemoglobin Oxyhemoglobin Sodium Potassium Chloride Carbon Dioxide BUN Creatinine Glucose POC Glucose 111 H 174 H 229 H Hemoglobin A1c Phosphorus Magnesium Total Bilirubin AST ALT Alkaline Phosphatase Total Creatine Kinase CK-MB (CK-2) Total Protein Albumin Vitamin B12 Urine Creatinine Urine Total Protein 04/05/19 04/05/19 04/05/19 05:08 07:46 11:27 RBC Hgb Hct MCV MCH RDW Lymph % (Auto) Mason % (Auto) Lymph # Mason # Seg Neutrophils % Seg Neutrophils # POC ABG pH ABG pH POC ABG pCO2 POC ABG pO2 ABG pO2 ABG HCO3 ABG O2 Saturation ABG Base Excess ABG Hemoglobin Oxyhemoglobin Sodium Potassium Chloride Carbon Dioxide BUN Creatinine Glucose POC Glucose 202 H 233 H 241 H Hemoglobin A1c Phosphorus Magnesium Total Bilirubin AST ALT Alkaline Phosphatase Total Creatine Kinase CK-MB (CK-2) Total Protein Albumin Vitamin B12 Urine Creatinine Urine Total Protein 04/05/19 04/05/19 04/05/19 12:58 16:15 21:56 RBC Hgb Hct MCV MCH RDW Lymph % (Auto) Mason % (Auto) Lymph # Mason # Seg Neutrophils % Seg Neutrophils # POC ABG pH ABG pH POC ABG pCO2 POC ABG pO2 ABG pO2 ABG HCO3 ABG O2 Saturation ABG Base Excess ABG Hemoglobin Oxyhemoglobin Sodium 149 H Potassium Chloride Carbon Dioxide 31 H BUN 67 H Creatinine 1.9 H Glucose 230 H POC Glucose 143 H 289 H Hemoglobin A1c Phosphorus Magnesium Total Bilirubin AST ALT Alkaline Phosphatase Total Creatine Kinase CK-MB (CK-2) Total Protein Albumin Vitamin B12 Urine Creatinine Urine Total Protein 04/06/19 04/06/19 04/06/19 05:25 07:12 07:52 RBC Hgb Hct MCV MCH RDW Lymph % (Auto) Mason % (Auto) Lymph # Mason # Seg Neutrophils % Seg Neutrophils # POC ABG pH ABG pH POC ABG pCO2 POC ABG pO2 ABG pO2 ABG HCO3 ABG O2 Saturation ABG Base Excess ABG Hemoglobin Oxyhemoglobin Sodium Potassium Chloride Carbon Dioxide BUN 56 H Creatinine 1.7 H Glucose 233 H POC Glucose 234 H 225 H Hemoglobin A1c Phosphorus Magnesium Total Bilirubin AST ALT Alkaline Phosphatase Total Creatine Kinase CK-MB (CK-2) Total Protein Albumin Vitamin B12 Urine Creatinine Urine Total Protein 04/06/19 04/06/19 04/06/19 12:12 16:58 21:53 RBC Hgb Hct MCV MCH RDW Lymph % (Auto) Mason % (Auto) Lymph # Mason # Seg Neutrophils % Seg Neutrophils # POC ABG pH ABG pH POC ABG pCO2 POC ABG pO2 ABG pO2 ABG HCO3 ABG O2 Saturation ABG Base Excess ABG Hemoglobin Oxyhemoglobin Sodium Potassium Chloride Carbon Dioxide BUN Creatinine Glucose POC Glucose 275 H 255 H 234 H Hemoglobin A1c Phosphorus Magnesium Total Bilirubin AST ALT Alkaline Phosphatase Total Creatine Kinase CK-MB (CK-2) Total Protein Albumin Vitamin B12 Urine Creatinine Urine Total Protein 04/07/19 04/07/19 04/07/19 02:51 10:40 10:40 RBC 3.51 L Hgb 11.4 L Hct 34.8 L MCV 99 H MCH RDW Lymph % (Auto) 6.0 L Mason % (Auto) Lymph # 0.6 L Mason # Seg Neutrophils % 86.9 H Seg Neutrophils # 9.4 H POC ABG pH ABG pH POC ABG pCO2 POC ABG pO2 ABG pO2 ABG HCO3 ABG O2 Saturation ABG Base Excess ABG Hemoglobin Oxyhemoglobin Sodium Potassium Chloride Carbon Dioxide 34 H BUN 50 H Creatinine Glucose 298 H POC Glucose 219 H Hemoglobin A1c Phosphorus Magnesium Total Bilirubin AST ALT Alkaline Phosphatase Total Creatine Kinase CK-MB (CK-2) Total Protein Albumin Vitamin B12 Urine Creatinine Urine Total Protein 04/07/19 04/07/19 04/07/19 11:53 18:38 22:33 RBC Hgb Hct MCV MCH RDW Lymph % (Auto) Mason % (Auto) Lymph # Mason # Seg Neutrophils % Seg Neutrophils # POC ABG pH ABG pH POC ABG pCO2 POC ABG pO2 ABG pO2 ABG HCO3 ABG O2 Saturation ABG Base Excess ABG Hemoglobin Oxyhemoglobin Sodium Potassium Chloride Carbon Dioxide BUN Creatinine Glucose POC Glucose 232 H 175 H 130 H Hemoglobin A1c Phosphorus Magnesium Total Bilirubin AST ALT Alkaline Phosphatase Total Creatine Kinase CK-MB (CK-2) Total Protein Albumin Vitamin B12 Urine Creatinine Urine Total Protein 04/08/19 04/08/19 04/08/19 05:42 06:19 07:19 RBC Hgb Hct MCV MCH RDW Lymph % (Auto) Mason % (Auto) Lymph # Mason # Seg Neutrophils % Seg Neutrophils # POC ABG pH ABG pH POC ABG pCO2 POC ABG pO2 ABG pO2 ABG HCO3 ABG O2 Saturation ABG Base Excess ABG Hemoglobin Oxyhemoglobin Sodium 149 H Potassium 3.5 L Chloride Carbon Dioxide 34 H BUN 40 H Creatinine Glucose POC Glucose 53 L 129 H Hemoglobin A1c Phosphorus Magnesium Total Bilirubin AST ALT Alkaline Phosphatase Total Creatine Kinase CK-MB (CK-2) Total Protein Albumin Vitamin B12 Urine Creatinine Urine Total Protein 04/08/19 04/08/19 04/08/19 11:15 16:58 23:51 RBC Hgb Hct MCV MCH RDW Lymph % (Auto) Mason % (Auto) Lymph # Mason # Seg Neutrophils % Seg Neutrophils # POC ABG pH ABG pH POC ABG pCO2 POC ABG pO2 ABG pO2 ABG HCO3 ABG O2 Saturation ABG Base Excess ABG Hemoglobin Oxyhemoglobin Sodium Potassium Chloride Carbon Dioxide BUN Creatinine Glucose POC Glucose 223 H 173 H 135 H Hemoglobin A1c Phosphorus Magnesium Total Bilirubin AST ALT Alkaline Phosphatase Total Creatine Kinase CK-MB (CK-2) Total Protein Albumin Vitamin B12 Urine Creatinine Urine Total Protein 04/09/19 04/09/19 04/09/19 09:09 11:28 13:23 RBC Hgb Hct MCV MCH RDW Lymph % (Auto) Mason % (Auto) Lymph # Mason # Seg Neutrophils % Seg Neutrophils # POC ABG pH ABG pH POC ABG pCO2 POC ABG pO2 ABG pO2 ABG HCO3 ABG O2 Saturation ABG Base Excess ABG Hemoglobin Oxyhemoglobin Sodium Potassium Chloride Carbon Dioxide 35 H BUN 34 H Creatinine Glucose 64 L 101 H POC Glucose 56 L Hemoglobin A1c Phosphorus Magnesium Total Bilirubin AST ALT Alkaline Phosphatase Total Creatine Kinase CK-MB (CK-2) Total Protein Albumin Vitamin B12 Urine Creatinine Urine Total Protein 04/09/19 04/09/19 04/10/19 17:53 23:11 09:10 RBC 3.26 L Hgb 10.8 L Hct 31.9 L MCV 98 H MCH 33 H RDW Lymph % (Auto) Mason % (Auto) 9.4 H Lymph # Mason # 0.9 H Seg Neutrophils % Seg Neutrophils # POC ABG pH ABG pH POC ABG pCO2 POC ABG pO2 ABG pO2 ABG HCO3 ABG O2 Saturation ABG Base Excess ABG Hemoglobin Oxyhemoglobin Sodium Potassium Chloride Carbon Dioxide BUN Creatinine Glucose POC Glucose 149 H 178 H Hemoglobin A1c Phosphorus Magnesium Total Bilirubin AST ALT Alkaline Phosphatase Total Creatine Kinase CK-MB (CK-2) Total Protein Albumin Vitamin B12 Urine Creatinine Urine Total Protein 04/10/19 04/10/19 04/10/19 09:10 12:52 16:31 RBC Hgb Hct MCV MCH RDW Lymph % (Auto) Mason % (Auto) Lymph # Mason # Seg Neutrophils % Seg Neutrophils # POC ABG pH ABG pH POC ABG pCO2 POC ABG pO2 ABG pO2 ABG HCO3 ABG O2 Saturation ABG Base Excess ABG Hemoglobin Oxyhemoglobin Sodium Potassium 3.5 L Chloride Carbon Dioxide 32 H BUN 29 H Creatinine Glucose 101 H POC Glucose 130 H 144 H Hemoglobin A1c Phosphorus Magnesium Total Bilirubin 1.30 H AST 49 H ALT 59 H Alkaline Phosphatase Total Creatine Kinase CK-MB (CK-2) Total Protein 5.3 L Albumin 2.6 L Vitamin B12 Urine Creatinine Urine Total Protein 04/10/19 04/11/19 04/11/19 23:56 07:39 12:12 RBC Hgb Hct MCV MCH RDW Lymph % (Auto) Mason % (Auto) Lymph # Mason # Seg Neutrophils % Seg Neutrophils # POC ABG pH ABG pH POC ABG pCO2 POC ABG pO2 ABG pO2 ABG HCO3 ABG O2 Saturation ABG Base Excess ABG Hemoglobin Oxyhemoglobin Sodium Potassium Chloride Carbon Dioxide BUN Creatinine Glucose POC Glucose 270 H 191 H 198 H Hemoglobin A1c Phosphorus Magnesium Total Bilirubin AST ALT Alkaline Phosphatase Total Creatine Kinase CK-MB (CK-2) Total Protein Albumin Vitamin B12 Urine Creatinine Urine Total Protein
--- NOTE | 2019-04-11 15:54 | Progress Note ---
Assessment and Plan This is a 58 yo male w history of COPD HUMA followed by Martinez, who comes in w sob. He reports that he has had a progressive worsening of his symptoms associated w productive cough. He is not o2 dependent. He reports that he takes combivent as rescue and spiriva daily. He also reports a hx of HUMA but has not been using cpap because he is claustrophobic He reports that he has frequent exacerbations, treated as outpt. No reports of intubation He reports weakness which has been ongoing for a few yrs -Acute metabolic encephalopathy - improving likely due to etoh, and getting high dose ativan dc ativan for now, patient hasn't had a drink in over a week haldol prn, olanzapine prn, MR brain Showed no stoke , -Acute and chronic respiratory failure secondary to COPD exacerbation taper steroids per pulmonology -Afib with rvr and hypercoaguable state mgt per cardiology, rate control improved, cont eliquis -Acute renal failure due to ATN Cr down to 1.3 nephrology following, improving -Hypokalemia Corrected -Hypernatremia corrected Improved, change IVF to 1/4NS -Hypokalemia supplemented Metabolic acidosis - sp bicarbonate drip, resolved -Polysubstance abuse/etoh withdrawal -uds pos for amphetamines, per Martinez, no documented hx of amphetamine abuse -he was rx with [facility] protocol for etoh abuse, ativan now dc -Type 2 diabetes mellitus with persistent hyperglycemia - Continue insulin coverage DVT prophylaxis - On heparin Called and discussed with pt's brother, Yael Shields Subjective Date of service: 04/11/19 Principal diagnosis: Afib Interval history: Calm and more cognitive. Objective - Exam Narrative Exam: Constitutional: Obese. Sitting up in bed on talking irrational. Confused. Head: Normocephalic atraumatic Eyes: Pupils are equal round and reactive to light Nose: No enlarged turbinates, no septal deviation. Mouth: Moist mucous membranes. Neck: Supple no thyromegaly. No bruit. No JVD Heart: Regular rate and rhythm, S1-S2 normal. No rubs murmurs or gallop Lungs: Clear to auscultation bilaterally. no rales or rhonchi Abdomen: Soft, nontender. Bowel sound are present. Extremities: No edema, no cyanosis, no clubbing. Neuro: Alert oriented Oriented x3. No focal sensory or motor deficit. Skin: No rashes or hyperpigmented spots Musculoskeletal system: No joint pain or swelling Hematological: No petechia or subcutanous hemorrhages. Immunological: No multiple septic spots on the skin Lymphatic: No generalized lymphadenopathy Psychiatry: more alert - Constitutional Vitals: Vital Signs - 12hr 04/11/19 04/11/19 04/11/19 07:27 07:50 10:00 Temperature Pulse Rate Pulse Rate [ 69 Anterior Bilateral Throughout] Pulse Rate [ 79 Right Radial] Respiratory 20 Rate Respiratory 20 Rate [Anterior Bilateral Throughout] Blood Pressure O2 Sat by Pulse 95 Oximetry 04/11/19 04/11/19 04/11/19 10:17 10:19 12:05 Temperature Pulse Rate 79 78 87 Pulse Rate [ Anterior Bilateral Throughout] Pulse Rate [ Right Radial] Respiratory 20 Rate Respiratory Rate [Anterior Bilateral Throughout] Blood Pressure 100/51 O2 Sat by Pulse 92 95 95 Oximetry 04/11/19 04/11/19 12:06 15:20 Temperature 97.9 F Pulse Rate Pulse Rate [ 66 Anterior Bilateral Throughout] Pulse Rate [ Right Radial] Respiratory 22 Rate Respiratory 20 Rate [Anterior Bilateral Throughout] Blood Pressure 109/50 O2 Sat by Pulse Oximetry - Labs CBC & Chem 7: 04/10/19 09:10 04/10/19 09:10 Labs: Abnormal lab results 04/10/19 04/10/19 04/10/19 Range/Units 12:52 16:31 23:56 POC Glucose 130 H 144 H 270 H (70-105) 04/11/19 04/11/19 Range/Units 07:39 12:12 POC Glucose 191 H 198 H (70-105)
[2019-04-11] MEDS: HALDOL IM PRN (22:20)
[2019-04-12] MEDS: STERILE WATER IV SCH (05:00)
[2019-04-12] MEDS: NACL IV SCH (05:00)
[2019-04-12] MEDS: TESSALON PERLES PO SCH ×3 (05:28→21:45)
[2019-04-12] MEDS: HumaLOG SUB-Q SCH ×6 (05:53→21:41)
[2019-04-12] MEDS: DUONEB *Not for PRN Use IH SCH ×3 (07:30→20:08)
[2019-04-12] MEDS: PULMICORT IH SCH ×2 (07:30→20:07)
[2019-04-12] MEDS: CEPHULAC PO SCH (10:59)
[2019-04-12] MEDS: GLUCOPHAGE PO SCH ×2 (10:59→17:46)
[2019-04-12] MEDS: DELTASONE PO SCH (10:59)
[2019-04-12] MEDS: PEPCID PO SCH (10:59)
[2019-04-12] MEDS: ELIQUIS PO SCH ×2 (11:00→21:44)
[2019-04-12] MEDS: PROTONIX PO SCH (11:00)
[2019-04-12] MEDS: PROzac PO SCH (11:00)
[2019-04-12] MEDS: SODIUM CHLORIDE FLUSH SYRINGE 10 ML IV SCH ×2 (11:01→21:45)
[2019-04-12] MEDS: ZESTRIL PO SCH (11:02)
[2019-04-12] MEDS: CARDIZEM CD PO SCH (11:03)
[2019-04-12] MEDS: LANTUS SUB-Q SCH ×2 (11:04→21:41)
[2019-04-12] MEDS: SPIRIVA IH SCH (11:26)
[2019-04-12] MEDS: LOPRESSOR PO SCH ×2 (12:48→21:45)
--- NOTE | 2019-04-12 13:32 | Progress Note ---
Assessment and Plan 58 y/o obese male with altered mental status, concern for ETOH withdrawal on CIWA and untreated HUMA and COPD. 1. Continue steroids at 20, will likely drop to 10 on Monday. 2. Continue scheduled duonebs and BID pulmicort 3. Blood pressure and Heart rate control, cards changed to Long acting dilt 4. Weight loss 5. Will continue to follow. 6. If patient is discharged today (Monday) please send out with 3 more days of Prednisone 10mg daily. Subjective Date of service: 04/12/19 Principal diagnosis: Afib Interval history: Mental state is improving. Breathing is stable Objective Vital Signs - 12hr 04/12/19 04/12/19 04/12/19 04:59 07:31 07:32 Temperature 97.6 F Pulse Rate 65 Pulse Rate [ 92 H Anterior Bilateral Throughout] Respiratory 24 Rate Respiratory 20 Rate [Anterior Bilateral Throughout] Blood Pressure 102/59 O2 Sat by Pulse 95 96 Oximetry 04/12/19 04/12/19 04/12/19 10:58 11:02 11:03 Temperature 98.0 F Pulse Rate 73 71 71 Pulse Rate [ Anterior Bilateral Throughout] Respiratory 18 Rate Respiratory Rate [Anterior Bilateral Throughout] Blood Pressure 111/65 111/65 111/65 O2 Sat by Pulse 93 Oximetry 04/12/19 04/12/19 12:48 13:00 Temperature Pulse Rate 80 Pulse Rate [ 85 Anterior Bilateral Throughout] Respiratory Rate Respiratory 20 Rate [Anterior Bilateral Throughout] Blood Pressure 104/72 O2 Sat by Pulse Oximetry Constitutional: other (obese, confused, agitated) Eyes: non-icteric ENT: oropharynx moist Neck: supple Ascultation: Bilateral: clear, diminished breath sounds, wheezes Percussion: Bilateral: not dull Cardiovascular: irregular rhythm (ir/ir, no mrg) Gastrointestinal: normoactive bowel sounds Integumentary: normal Extremities: no cyanosis, no edema, pink and warm Neurologic: non-focal exam Psychiatric: other (unable to assess) CBC and BMP: 04/10/19 09:10 04/10/19 09:10 ABG, PT/INR, D-dimer: ABG POC ABG pH 7.827 (7.35-7.45) H 04/02/19 03:09 ABG pH 7.435 pH Units (7.350-7.450) 04/02/19 14:45 ABG pCO2 52.3 mm Hg 04/02/19 14:45 POC ABG pO2 157 (80-105) H 04/02/19 03:09 ABG pO2 73.3 mm Hg (80.0-90.0) L 04/02/19 14:45 POC ABG HCO3 30.3 (22-26 mml/L) 04/02/19 03:09 POC ABG Total CO2 31 (23-27mmol/L) 04/02/19 03:09 POC ABG O2 Sat 100 04/02/19 03:09 ABG O2 Saturation 95.3 % (95.0-99.0) 04/02/19 14:45 Abnormal lab findings: Abnormal Labs 03/29/19 03/29/19 03/29/19 13:18 13:18 18:22 RBC 3.24 L Hgb 10.6 L Hct 33.2 L MCV 103 H MCH 33 H RDW 15.5 H Lymph % (Auto) 9.4 L Clinch % (Auto) 7.8 H Lymph # 0.8 L Clinch # Seg Neutrophils % 81.5 H Seg Neutrophils # POC ABG pH 7.122 L ABG pH POC ABG pCO2 45.4 H POC ABG pO2 ABG pO2 ABG HCO3 ABG O2 Saturation ABG Base Excess ABG Hemoglobin Oxyhemoglobin Sodium 132 L Potassium 6.6 H* Chloride 94.9 L Carbon Dioxide 14 L BUN 73 H Creatinine 8.6 H Glucose POC Glucose Hemoglobin A1c Phosphorus Magnesium Total Bilirubin AST 48 H ALT Alkaline Phosphatase 136 H Total Creatine Kinase 2408 H CK-MB (CK-2) 17.6 H Total Protein Albumin Vitamin B12 Urine Creatinine Urine Total Protein 03/29/19 03/30/19 03/30/19 23:37 05:58 10:00 RBC Hgb Hct MCV MCH RDW Lymph % (Auto) Clinch % (Auto) Lymph # Clinch # Seg Neutrophils % Seg Neutrophils # POC ABG pH 7.143 L ABG pH POC ABG pCO2 50.5 H POC ABG pO2 159 H ABG pO2 ABG HCO3 ABG O2 Saturation ABG Base Excess ABG Hemoglobin Oxyhemoglobin Sodium Potassium Chloride Carbon Dioxide BUN Creatinine Glucose POC Glucose Hemoglobin A1c 6.4 H Phosphorus Magnesium Total Bilirubin AST ALT Alkaline Phosphatase Total Creatine Kinase CK-MB (CK-2) Total Protein Albumin Vitamin B12 Urine Creatinine 227.1 H Urine Total Protein 31 H 08/17/19 08/17/19 08/17/19 10:00 10:12 10:12 RBC 3.17 L Hgb 10.5 L Hct 31.8 L MCV 100 H MCH 33 H RDW Lymph % (Auto) 8.1 L Clinch % (Auto) Lymph # 0.5 L Clinch # Seg Neutrophils % 88.0 H Seg Neutrophils # POC ABG pH ABG pH POC ABG pCO2 POC ABG pO2 ABG pO2 ABG HCO3 ABG O2 Saturation ABG Base Excess ABG Hemoglobin Oxyhemoglobin Sodium 132 L Potassium 6.6 H* Chloride 91.9 L Carbon Dioxide 19 L BUN 89 H Creatinine 7.2 H Glucose 302 H POC Glucose Hemoglobin A1c Phosphorus 7.50 H Magnesium Total Bilirubin AST ALT Alkaline Phosphatase Total Creatine Kinase CK-MB (CK-2) Total Protein Albumin Vitamin B12 Urine Creatinine 230.8 H Urine Total Protein 32 H 03/30/19 03/30/19 03/30/19 11:42 16:54 17:45 RBC Hgb Hct MCV MCH RDW Lymph % (Auto) Clinch % (Auto) Lymph # Clinch # Seg Neutrophils % Seg Neutrophils # POC ABG pH ABG pH 7.294 L POC ABG pCO2 POC ABG pO2 ABG pO2 67.1 L ABG HCO3 19.4 L ABG O2 Saturation 91.4 L ABG Base Excess -6.7 L ABG Hemoglobin 9.9 L Oxyhemoglobin 89.4 L Sodium Potassium Chloride Carbon Dioxide BUN Creatinine Glucose POC Glucose 275 H 361 H Hemoglobin A1c Phosphorus Magnesium Total Bilirubin AST ALT Alkaline Phosphatase Total Creatine Kinase CK-MB (CK-2) Total Protein Albumin Vitamin B12 Urine Creatinine Urine Total Protein 03/30/19 03/30/19 03/30/19 20:00 20:28 23:27 RBC Hgb Hct MCV MCH RDW Lymph % (Auto) Clinch % (Auto) Lymph # Clinch # Seg Neutrophils % Seg Neutrophils # POC ABG pH ABG pH 7.293 L POC ABG pCO2 POC ABG pO2 ABG pO2 ABG HCO3 ABG O2 Saturation ABG Base Excess -5.9 L ABG Hemoglobin 11.0 L Oxyhemoglobin 94.1 L Sodium 134 L Potassium Chloride 92.9 L Carbon Dioxide 19 L BUN 93 H Creatinine 5.5 H Glucose 374 H POC Glucose 372 H Hemoglobin A1c Phosphorus Magnesium Total Bilirubin AST ALT Alkaline Phosphatase Total Creatine Kinase CK-MB (CK-2) Total Protein Albumin Vitamin B12 Urine Creatinine Urine Total Protein 03/31/19 03/31/19 03/31/19 04:39 04:39 05:27 RBC 3.08 L Hgb 10.3 L Hct 30.6 L MCV 99 H MCH 33 H RDW Lymph % (Auto) 6.5 L Clinch % (Auto) Lymph # 0.3 L Clinch # Seg Neutrophils % 86.6 H Seg Neutrophils # POC ABG pH ABG pH POC ABG pCO2 POC ABG pO2 ABG pO2 ABG HCO3 ABG O2 Saturation ABG Base Excess ABG Hemoglobin Oxyhemoglobin Sodium 135 L Potassium Chloride 92.7 L Carbon Dioxide BUN 92 H Creatinine 4.5 H Glucose 344 H POC Glucose 354 H Hemoglobin A1c Phosphorus Magnesium Total Bilirubin AST ALT Alkaline Phosphatase Total Creatine Kinase CK-MB (CK-2) Total Protein Albumin Vitamin B12 Urine Creatinine Urine Total Protein 03/31/19 03/31/19 03/31/19 08:03 12:08 17:08 RBC Hgb Hct MCV MCH RDW Lymph % (Auto) Clinch % (Auto) Lymph # Clinch # Seg Neutrophils % Seg Neutrophils # POC ABG pH ABG pH POC ABG pCO2 POC ABG pO2 ABG pO2 ABG HCO3 ABG O2 Saturation ABG Base Excess ABG Hemoglobin Oxyhemoglobin Sodium Potassium Chloride Carbon Dioxide BUN Creatinine Glucose POC Glucose 375 H 410 H 361 H Hemoglobin A1c Phosphorus Magnesium Total Bilirubin AST ALT Alkaline Phosphatase Total Creatine Kinase CK-MB (CK-2) Total Protein Albumin Vitamin B12 Urine Creatinine Urine Total Protein 03/31/19 04/01/19 04/01/19 23:12 05:22 08:28 RBC Hgb Hct MCV MCH RDW Lymph % (Auto) Clinch % (Auto) Lymph # Clinch # Seg Neutrophils % Seg Neutrophils # POC ABG pH ABG pH POC ABG pCO2 POC ABG pO2 ABG pO2 ABG HCO3 ABG O2 Saturation ABG Base Excess ABG Hemoglobin Oxyhemoglobin Sodium Potassium Chloride Carbon Dioxide BUN Creatinine Glucose POC Glucose 355 H 300 H 259 H Hemoglobin A1c Phosphorus Magnesium Total Bilirubin AST ALT Alkaline Phosphatase Total Creatine Kinase CK-MB (CK-2) Total Protein Albumin Vitamin B12 Urine Creatinine Urine Total Protein 04/01/19 04/01/19 04/01/19 11:35 16:18 23:27 RBC Hgb Hct MCV MCH RDW Lymph % (Auto) Clinch % (Auto) Lymph # Clinch # Seg Neutrophils % Seg Neutrophils # POC ABG pH ABG pH POC ABG pCO2 POC ABG pO2 ABG pO2 ABG HCO3 ABG O2 Saturation ABG Base Excess ABG Hemoglobin Oxyhemoglobin Sodium Potassium Chloride Carbon Dioxide BUN Creatinine Glucose POC Glucose 283 H 169 H 344 H Hemoglobin A1c Phosphorus Magnesium Total Bilirubin AST ALT Alkaline Phosphatase Total Creatine Kinase CK-MB (CK-2) Total Protein Albumin Vitamin B12 Urine Creatinine Urine Total Protein 04/02/19 04/02/19 04/02/19 02:39 03:09 05:11 RBC Hgb Hct MCV MCH RDW Lymph % (Auto) Clinch % (Auto) Lymph # Clinch # Seg Neutrophils % Seg Neutrophils # POC ABG pH 7.827 H ABG pH POC ABG pCO2 POC ABG pO2 157 H ABG pO2 ABG HCO3 ABG O2 Saturation ABG Base Excess ABG Hemoglobin Oxyhemoglobin Sodium 149 H D Potassium 3.3 L Chloride Carbon Dioxide 35 H D BUN 78 H Creatinine 2.2 H D Glucose 185 H POC Glucose 252 H Hemoglobin A1c Phosphorus Magnesium Total Bilirubin AST ALT Alkaline Phosphatase Total Creatine Kinase CK-MB (CK-2) Total Protein Albumin Vitamin B12 Urine Creatinine Urine Total Protein 04/02/19 04/02/19 04/02/19 05:31 08:28 11:46 RBC Hgb Hct MCV MCH RDW Lymph % (Auto) Clinch % (Auto) Lymph # Clinch # Seg Neutrophils % Seg Neutrophils # POC ABG pH ABG pH POC ABG pCO2 POC ABG pO2 ABG pO2 ABG HCO3 ABG O2 Saturation ABG Base Excess ABG Hemoglobin Oxyhemoglobin Sodium Potassium Chloride Carbon Dioxide BUN Creatinine Glucose POC Glucose 160 H 140 H 186 H Hemoglobin A1c Phosphorus Magnesium Total Bilirubin AST ALT Alkaline Phosphatase Total Creatine Kinase CK-MB (CK-2) Total Protein Albumin Vitamin B12 Urine Creatinine Urine Total Protein 04/02/19 04/02/19 04/03/19 14:45 20:59 00:23 RBC Hgb Hct MCV MCH RDW Lymph % (Auto) Clinch % (Auto) Lymph # Clinch # Seg Neutrophils % Seg Neutrophils # POC ABG pH ABG pH POC ABG pCO2 POC ABG pO2 ABG pO2 73.3 L ABG HCO3 34.3 H ABG O2 Saturation ABG Base Excess 8.7 H ABG Hemoglobin 11.1 L Oxyhemoglobin 93.5 L Sodium Potassium Chloride Carbon Dioxide BUN Creatinine Glucose POC Glucose 195 H 211 H Hemoglobin A1c Phosphorus Magnesium Total Bilirubin AST ALT Alkaline Phosphatase Total Creatine Kinase CK-MB (CK-2) Total Protein Albumin Vitamin B12 Urine Creatinine Urine Total Protein 04/03/19 04/03/19 04/03/19 05:48 05:48 06:00 RBC 3.46 L Hgb 11.5 L Hct 34.8 L MCV 101 H MCH 33 H RDW 15.5 H Lymph % (Auto) 13.2 L Clinch % (Auto) 8.8 H Lymph # 0.8 L Clinch # Seg Neutrophils % 77.8 H Seg Neutrophils # POC ABG pH ABG pH POC ABG pCO2 POC ABG pO2 ABG pO2 ABG HCO3 ABG O2 Saturation ABG Base Excess ABG Hemoglobin Oxyhemoglobin Sodium 152 H Potassium 3.1 L Chloride Carbon Dioxide 34 H BUN 71 H Creatinine 1.8 H Glucose 128 H POC Glucose 124 H Hemoglobin A1c Phosphorus Magnesium 2.50 H Total Bilirubin AST ALT Alkaline Phosphatase Total Creatine Kinase CK-MB (CK-2) Total Protein Albumin 3.6 L Vitamin B12 Urine Creatinine Urine Total Protein 04/03/19 04/03/19 04/03/19 12:42 21:00 22:04 RBC Hgb Hct MCV MCH RDW Lymph % (Auto) Clinch % (Auto) Lymph # Clinch # Seg Neutrophils % Seg Neutrophils # POC ABG pH ABG pH POC ABG pCO2 POC ABG pO2 ABG pO2 ABG HCO3 ABG O2 Saturation ABG Base Excess ABG Hemoglobin Oxyhemoglobin Sodium Potassium Chloride Carbon Dioxide BUN Creatinine Glucose POC Glucose 192 H 57 L Hemoglobin A1c Phosphorus Magnesium Total Bilirubin AST ALT Alkaline Phosphatase Total Creatine Kinase CK-MB (CK-2) Total Protein Albumin Vitamin B12 1568 H Urine Creatinine Urine Total Protein 04/03/19 04/04/19 04/04/19 23:21 00:42 04:23 RBC Hgb Hct MCV MCH RDW Lymph % (Auto) Clinch % (Auto) Lymph # Clinch # Seg Neutrophils % Seg Neutrophils # POC ABG pH ABG pH POC ABG pCO2 POC ABG pO2 ABG pO2 ABG HCO3 ABG O2 Saturation ABG Base Excess ABG Hemoglobin Oxyhemoglobin Sodium 155 H Potassium 3.1 L Chloride 107.8 H Carbon Dioxide 34 H BUN 64 H Creatinine 1.9 H Glucose POC Glucose 69 L 63 L Hemoglobin A1c Phosphorus Magnesium Total Bilirubin AST ALT Alkaline Phosphatase Total Creatine Kinase CK-MB (CK-2) Total Protein Albumin Vitamin B12 Urine Creatinine Urine Total Protein 04/04/19 04/04/19 04/04/19 11:46 16:31 22:12 RBC Hgb Hct MCV MCH RDW Lymph % (Auto) Clinch % (Auto) Lymph # Clinch # Seg Neutrophils % Seg Neutrophils # POC ABG pH ABG pH POC ABG pCO2 POC ABG pO2 ABG pO2 ABG HCO3 ABG O2 Saturation ABG Base Excess ABG Hemoglobin Oxyhemoglobin Sodium Potassium Chloride Carbon Dioxide BUN Creatinine Glucose POC Glucose 111 H 174 H 229 H Hemoglobin A1c Phosphorus Magnesium Total Bilirubin AST ALT Alkaline Phosphatase Total Creatine Kinase CK-MB (CK-2) Total Protein Albumin Vitamin B12 Urine Creatinine Urine Total Protein 04/05/19 04/05/19 04/05/19 05:08 07:46 11:27 RBC Hgb Hct MCV MCH RDW Lymph % (Auto) Clinch % (Auto) Lymph # Clinch # Seg Neutrophils % Seg Neutrophils # POC ABG pH ABG pH POC ABG pCO2 POC ABG pO2 ABG pO2 ABG HCO3 ABG O2 Saturation ABG Base Excess ABG Hemoglobin Oxyhemoglobin Sodium Potassium Chloride Carbon Dioxide BUN Creatinine Glucose POC Glucose 202 H 233 H 241 H Hemoglobin A1c Phosphorus Magnesium Total Bilirubin AST ALT Alkaline Phosphatase Total Creatine Kinase CK-MB (CK-2) Total Protein Albumin Vitamin B12 Urine Creatinine Urine Total Protein 04/05/19 04/05/19 04/05/19 12:58 16:15 21:56 RBC Hgb Hct MCV MCH RDW Lymph % (Auto) Clinch % (Auto) Lymph # Clinch # Seg Neutrophils % Seg Neutrophils # POC ABG pH ABG pH POC ABG pCO2 POC ABG pO2 ABG pO2 ABG HCO3 ABG O2 Saturation ABG Base Excess ABG Hemoglobin Oxyhemoglobin Sodium 149 H Potassium Chloride Carbon Dioxide 31 H BUN 67 H Creatinine 1.9 H Glucose 230 H POC Glucose 143 H 289 H Hemoglobin A1c Phosphorus Magnesium Total Bilirubin AST ALT Alkaline Phosphatase Total Creatine Kinase CK-MB (CK-2) Total Protein Albumin Vitamin B12 Urine Creatinine Urine Total Protein 04/06/19 04/06/19 04/06/19 05:25 07:12 07:52 RBC Hgb Hct MCV MCH RDW Lymph % (Auto) Clinch % (Auto) Lymph # Clinch # Seg Neutrophils % Seg Neutrophils # POC ABG pH ABG pH POC ABG pCO2 POC ABG pO2 ABG pO2 ABG HCO3 ABG O2 Saturation ABG Base Excess ABG Hemoglobin Oxyhemoglobin Sodium Potassium Chloride Carbon Dioxide BUN 56 H Creatinine 1.7 H Glucose 233 H POC Glucose 234 H 225 H Hemoglobin A1c Phosphorus Magnesium Total Bilirubin AST ALT Alkaline Phosphatase Total Creatine Kinase CK-MB (CK-2) Total Protein Albumin Vitamin B12 Urine Creatinine Urine Total Protein 04/06/19 04/06/19 04/06/19 12:12 16:58 21:53 RBC Hgb Hct MCV MCH RDW Lymph % (Auto) Clinch % (Auto) Lymph # Clinch # Seg Neutrophils % Seg Neutrophils # POC ABG pH ABG pH POC ABG pCO2 POC ABG pO2 ABG pO2 ABG HCO3 ABG O2 Saturation ABG Base Excess ABG Hemoglobin Oxyhemoglobin Sodium Potassium Chloride Carbon Dioxide BUN Creatinine Glucose POC Glucose 275 H 255 H 234 H Hemoglobin A1c Phosphorus Magnesium Total Bilirubin AST ALT Alkaline Phosphatase Total Creatine Kinase CK-MB (CK-2) Total Protein Albumin Vitamin B12 Urine Creatinine Urine Total Protein 04/07/19 04/07/19 04/07/19 02:51 10:40 10:40 RBC 3.51 L Hgb 11.4 L Hct 34.8 L MCV 99 H MCH RDW Lymph % (Auto) 6.0 L Clinch % (Auto) Lymph # 0.6 L Clinch # Seg Neutrophils % 86.9 H Seg Neutrophils # 9.4 H POC ABG pH ABG pH POC ABG pCO2 POC ABG pO2 ABG pO2 ABG HCO3 ABG O2 Saturation ABG Base Excess ABG Hemoglobin Oxyhemoglobin Sodium Potassium Chloride Carbon Dioxide 34 H BUN 50 H Creatinine Glucose 298 H POC Glucose 219 H Hemoglobin A1c Phosphorus Magnesium Total Bilirubin AST ALT Alkaline Phosphatase Total Creatine Kinase CK-MB (CK-2) Total Protein Albumin Vitamin B12 Urine Creatinine Urine Total Protein 04/07/19 04/07/19 04/07/19 11:53 18:38 22:33 RBC Hgb Hct MCV MCH RDW Lymph % (Auto) Clinch % (Auto) Lymph # Clinch # Seg Neutrophils % Seg Neutrophils # POC ABG pH ABG pH POC ABG pCO2 POC ABG pO2 ABG pO2 ABG HCO3 ABG O2 Saturation ABG Base Excess ABG Hemoglobin Oxyhemoglobin Sodium Potassium Chloride Carbon Dioxide BUN Creatinine Glucose POC Glucose 232 H 175 H 130 H Hemoglobin A1c Phosphorus Magnesium Total Bilirubin AST ALT Alkaline Phosphatase Total Creatine Kinase CK-MB (CK-2) Total Protein Albumin Vitamin B12 Urine Creatinine Urine Total Protein 04/08/19 04/08/1904/08/19 05:42 06:19 07:19 RBC Hgb Hct MCV MCH RDW Lymph % (Auto) Clinch % (Auto) Lymph # Clinch # Seg Neutrophils % Seg Neutrophils # POC ABG pH ABG pH POC ABG pCO2 POC ABG pO2 ABG pO2 ABG HCO3 ABG O2 Saturation ABG Base Excess ABG Hemoglobin Oxyhemoglobin Sodium 149 H Potassium 3.5 L Chloride Carbon Dioxide 34 H BUN 40 H Creatinine Glucose POC Glucose 53 L 129 H Hemoglobin A1c Phosphorus Magnesium Total Bilirubin AST ALT Alkaline Phosphatase Total Creatine Kinase CK-MB (CK-2) Total Protein Albumin Vitamin B12 Urine Creatinine Urine Total Protein 04/08/19 04/08/19 04/08/19 11:15 16:58 23:51 RBC Hgb Hct MCV MCH RDW Lymph % (Auto) Clinch % (Auto) Lymph # Clinch # Seg Neutrophils % Seg Neutrophils # POC ABG pH ABG pH POC ABG pCO2 POC ABG pO2 ABG pO2 ABG HCO3 ABG O2 Saturation ABG Base Excess ABG Hemoglobin Oxyhemoglobin Sodium Potassium Chloride Carbon Dioxide BUN Creatinine Glucose POC Glucose 223 H 173 H 135 H Hemoglobin A1c Phosphorus Magnesium Total Bilirubin AST ALT Alkaline Phosphatase Total Creatine Kinase CK-MB (CK-2) Total Protein Albumin Vitamin B12 Urine Creatinine Urine Total Protein 04/09/19 04/09/19 04/09/19 09:09 11:28 13:23 RBC Hgb Hct MCV MCH RDW Lymph % (Auto) Clinch % (Auto) Lymph # Clinch # Seg Neutrophils % Seg Neutrophils # POC ABG pH ABG pH POC ABG pCO2 POC ABG pO2 ABG pO2 ABG HCO3 ABG O2 Saturation ABG Base Excess ABG Hemoglobin Oxyhemoglobin Sodium Potassium Chloride Carbon Dioxide 35 H BUN 34 H Creatinine Glucose 64 L 101 H POC Glucose 56 L Hemoglobin A1c Phosphorus Magnesium Total Bilirubin AST ALT Alkaline Phosphatase Total Creatine Kinase CK-MB (CK-2) Total Protein Albumin Vitamin B12 Urine Creatinine Urine Total Protein 04/09/19 04/09/19 04/10/19 17:53 23:11 09:10 RBC 3.26 L Hgb 10.8 L Hct 31.9 L MCV 98 H MCH 33 H RDW Lymph % (Auto) Clinch % (Auto) 9.4 H Lymph # Clinch # 0.9 H Seg Neutrophils % Seg Neutrophils # POC ABG pH ABG pH POC ABG pCO2 POC ABG pO2 ABG pO2 ABG HCO3 ABG O2 Saturation ABG Base Excess ABG Hemoglobin Oxyhemoglobin Sodium Potassium Chloride Carbon Dioxide BUN Creatinine Glucose POC Glucose 149 H 178 H Hemoglobin A1c Phosphorus Magnesium Total Bilirubin AST ALT Alkaline Phosphatase Total Creatine Kinase CK-MB (CK-2) Total Protein Albumin Vitamin B12 Urine Creatinine Urine Total Protein 04/10/19 04/10/19 04/10/19 09:10 12:52 16:31 RBC Hgb Hct MCV MCH RDW Lymph % (Auto) Clinch % (Auto) Lymph # Clinch # Seg Neutrophils % Seg Neutrophils # POC ABG pH ABG pH POC ABG pCO2 POC ABG pO2 ABG pO2 ABG HCO3 ABG O2 Saturation ABG Base Excess ABG Hemoglobin Oxyhemoglobin Sodium Potassium 3.5 L Chloride Carbon Dioxide 32 H BUN 29 H Creatinine Glucose 101 H POC Glucose 130 H 144 H Hemoglobin A1c Phosphorus Magnesium Total Bilirubin 1.30 H AST 49 H ALT 59 H Alkaline Phosphatase Total Creatine Kinase CK-MB (CK-2) Total Protein 5.3 L Albumin 2.6 L Vitamin B12 Urine Creatinine Urine Total Protein 04/10/19 04/11/19 04/11/19 23:56 07:39 12:12 RBC Hgb Hct MCV MCH RDW Lymph % (Auto) Clinch % (Auto) Lymph # Clinch # Seg Neutrophils % Seg Neutrophils # POC ABG pH ABG pH POC ABG pCO2 POC ABG pO2 ABG pO2 ABG HCO3 ABG O2 Saturation ABG Base Excess ABG Hemoglobin Oxyhemoglobin Sodium Potassium Chloride Carbon Dioxide BUN Creatinine Glucose POC Glucose 270 H 191 H 198 H Hemoglobin A1c Phosphorus Magnesium Total Bilirubin AST ALT Alkaline Phosphatase Total Creatine Kinase CK-MB (CK-2) Total Protein Albumin Vitamin B12 Urine Creatinine Urine Total Protein 04/11/19 04/11/19 04/12/19 16:34 21:48 11:49 RBC Hgb Hct MCV MCH RDW Lymph % (Auto) Clinch % (Auto) Lymph # Clinch # Seg Neutrophils % Seg Neutrophils # POC ABG pH ABG pH POC ABG pCO2 POC ABG pO2 ABG pO2 ABG HCO3 ABG O2 Saturation ABG Base Excess ABG Hemoglobin Oxyhemoglobin Sodium Potassium Chloride Carbon Dioxide BUN Creatinine Glucose POC Glucose 205 H 236 H 166 H Hemoglobin A1c Phosphorus Magnesium Total Bilirubin AST ALT Alkaline Phosphatase Total Creatine Kinase CK-MB (CK-2) Total Protein Albumin Vitamin B12 Urine Creatinine Urine Total Protein
--- NOTE | 2019-04-12 18:21 | Progress Note ---
Assessment and Plan This is a 58 yo male w history of COPD HUMA followed by Martinez, who comes in w sob. He reports that he has had a progressive worsening of his symptoms associated w productive cough. He is not o2 dependent. He reports that he takes combivent as rescue and spiriva daily. He also reports a hx of HUMA but has not been using cpap because he is claustrophobic He reports that he has frequent exacerbations, treated as outpt. No reports of intubation He reports weakness which has been ongoing for a few yrs -Acute metabolic encephalopathy - improved likely due to etoh, and getting high dose ativan dc ativan for now, patient hasn't had a drink in over a week haldol prn, olanzapine prn, MR brain Showed no stoke , -Acute and chronic respiratory failure secondary to COPD exacerbation taper steroids per pulmonology -Afib with rvr and hypercoaguable state mgt per cardiology, rate control improved, cont eliquis -Acute renal failure due to ATN improving Cr down to 1.3 nephrology following, improving -Hypokalemia Correct furhter and recheck -Hypernatremia corrected Improved, change IVF to 1/4NS Metabolic acidosis - sp bicarbonate drip, resolved -Polysubstance abuse/etoh withdrawal -uds pos for amphetamines, per Martinez, no documented hx of amphetamine abuse -he was rx with [facility] protocol for etoh abuse, ativan now dc -Type 2 diabetes mellitus with persistent hyperglycemia - Continue insulin coverage DVT prophylaxis - On heparin Subjective Date of service: 04/12/19 Principal diagnosis: Afib Interval history: Calm and not cognitive. Objective - Exam Narrative Exam: Constitutional: Obese. Sitting up in bed on talking irrational. Confused. Head: Normocephalic atraumatic Eyes: Pupils are equal round and reactive to light Nose: No enlarged turbinates, no septal deviation. Mouth: Moist mucous membranes. Neck: Supple no thyromegaly. No bruit. No JVD Heart: Regular rate and rhythm, S1-S2 normal. No rubs murmurs or gallop Lungs: Clear to auscultation bilaterally. no rales or rhonchi Abdomen: Soft, nontender. Bowel sound are present. Extremities: No edema, no cyanosis, no clubbing. Neuro: Alert oriented Oriented x3. No focal sensory or motor deficit. Skin: No rashes or hyperpigmented spots Musculoskeletal system: No joint pain or swelling Hematological: No petechia or subcutanous hemorrhages. Immunological: No multiple septic spots on the skin Lymphatic: No generalized lymphadenopathy Psychiatry: more alert - Constitutional Vitals: Vital Signs - 12hr 04/12/19 04/12/19 04/12/19 07:31 07:32 10:58 Temperature 98.0 F Pulse Rate 73 Pulse Rate [ 92 H Anterior Bilateral Throughout] Respiratory 18 Rate Respiratory 20 Rate [Anterior Bilateral Throughout] Blood Pressure 111/65 O2 Sat by Pulse 96 93 Oximetry 04/12/19 04/12/19 04/12/19 11:02 11:03 12:48 Temperature Pulse Rate 71 71 80 Pulse Rate [ Anterior Bilateral Throughout] Respiratory Rate Respiratory Rate [Anterior Bilateral Throughout] Blood Pressure 111/65 111/65 104/72 O2 Sat by Pulse Oximetry 04/12/19 04/12/19 13:00 17:17 Temperature 97.6 F Pulse Rate 78 Pulse Rate [ 85 Anterior Bilateral Throughout] Respiratory 20 Rate Respiratory 20 Rate [Anterior Bilateral Throughout] Blood Pressure 113/65 O2 Sat by Pulse 92 Oximetry - Labs CBC & Chem 7: 04/10/19 09:10 04/10/19 09:10 Labs: Abnormal lab results 04/11/19 04/12/19 04/12/19 Range/Units 21:48 11:49 16:46 POC Glucose 236 H 166 H 142 H (70-105)
[2019-04-13] MEDS: TESSALON PERLES PO SCH ×3 (06:39→22:21)
[2019-04-13] MEDS: PULMICORT IH SCH ×2 (07:16→20:55)
[2019-04-13] MEDS: DUONEB *Not for PRN Use IH SCH ×3 (07:16→20:55)
[2019-04-13] MEDS: LANTUS SUB-Q SCH ×2 (09:12→22:22)
[2019-04-13] MEDS: HumaLOG SUB-Q SCH ×4 (09:12→22:41)
[2019-04-13] MEDS: SODIUM CHLORIDE FLUSH SYRINGE 10 ML IV SCH ×2 (09:13→22:39)
[2019-04-13] MEDS: PROTONIX PO SCH (09:15)
[2019-04-13] MEDS: ELIQUIS PO SCH ×2 (09:18→22:24)
[2019-04-13] MEDS: PROzac PO SCH (09:18)
[2019-04-13] MEDS: GLUCOPHAGE PO SCH ×2 (09:20→17:33)
[2019-04-13] MEDS: ZESTRIL PO SCH (09:21)
[2019-04-13] MEDS: CARDIZEM CD PO SCH (09:22)
[2019-04-13] MEDS: DELTASONE PO SCH (09:22)
[2019-04-13] MEDS: CEPHULAC PO SCH (09:23)
[2019-04-13] MEDS: LOPRESSOR PO SCH ×2 (09:24→23:34)
[2019-04-13] MEDS: SPIRIVA IH SCH (09:38)
--- NOTE | 2019-04-13 13:03 | Progress Note ---
Assessment and Plan 58 y/o obese male with altered mental status, concern for ETOH withdrawal on CIWA and untreated HUMA and COPD. 1. Changes steroids to 10 daily for the next 3 days. Stop time already in place. 2. Continue scheduled duonebs and BID pulmicort 3. Blood pressure and Heart rate control, cards changed to Long acting dilt 4. Weight loss 5. Will continue to follow. 6. If patient is discharged today (Monday) please send out with 3 more days of Prednisone 10mg daily. Subjective Date of service: 04/13/19 Principal diagnosis: Afib Interval history: No acute events. PUlm status is stable Objective Vital Signs - 12hr 04/13/19 04/13/19 04/13/19 05:11 07:18 07:19 Temperature 97.3 F L Pulse Rate 53 L Pulse Rate [ 81 Anterior Bilateral Throughout] Respiratory 24 Rate Respiratory 19 Rate [Anterior Bilateral Throughout] Blood Pressure 96/55 Blood Pressure [Left] O2 Sat by Pulse 92 95 Oximetry 04/13/19 04/13/19 04/13/19 09:07 09:21 09:22 Temperature Pulse Rate 78 78 78 Pulse Rate [ Anterior Bilateral Throughout] Respiratory Rate Respiratory Rate [Anterior Bilateral Throughout] Blood Pressure 131/63 131/63 Blood Pressure 131/63 [Left] O2 Sat by Pulse Oximetry 04/13/19 04/13/19 09:24 09:38 Temperature Pulse Rate 78 Pulse Rate [ 81 Anterior Bilateral Throughout] Respiratory Rate Respiratory 19 Rate [Anterior Bilateral Throughout] Blood Pressure 131/78 Blood Pressure [Left] O2 Sat by Pulse Oximetry Constitutional: other (obese, confused, agitated) Eyes: non-icteric ENT: oropharynx moist Neck: supple Ascultation: Bilateral: clear, diminished breath sounds, wheezes Percussion: Bilateral: not dull Cardiovascular: irregular rhythm (ir/ir, no mrg) Gastrointestinal: normoactive bowel sounds Integumentary: normal Extremities: no cyanosis, no edema, pink and warm Neurologic: non-focal exam Psychiatric: other (unable to assess) CBC and BMP: 04/10/19 09:10 04/10/19 09:10 ABG, PT/INR, D-dimer: ABG POC ABG pH 7.827 (7.35-7.45) H 04/02/19 03:09 ABG pH 7.435 pH Units (7.350-7.450) 04/02/19 14:45 ABG pCO2 52.3 mm Hg 04/02/19 14:45 POC ABG pO2 157 (80-105) H 04/02/19 03:09 ABG pO2 73.3 mm Hg (80.0-90.0) L 04/02/19 14:45 POC ABG HCO3 30.3 (22-26 mml/L) 04/02/19 03:09 POC ABG Total CO2 31 (23-27mmol/L) 04/02/19 03:09 POC ABG O2 Sat 100 04/02/19 03:09 ABG O2 Saturation 95.3 % (95.0-99.0) 04/02/19 14:45 Abnormal lab findings: Abnormal Labs 03/29/19 03/29/19 03/29/19 13:18 13:18 18:22 RBC 3.24 L Hgb 10.6 L Hct 33.2 L MCV 103 H MCH 33 H RDW 15.5 H Lymph % (Auto) 9.4 L [place] % (Auto) 7.8 H Lymph # 0.8 L [place] # Seg Neutrophils % 81.5 H Seg Neutrophils # POC ABG pH 7.122 L ABG pH POC ABG pCO2 45.4 H POC ABG pO2 ABG pO2 ABG HCO3 ABG O2 Saturation ABG Base Excess ABG Hemoglobin Oxyhemoglobin Sodium 132 L Potassium 6.6 H* Chloride 94.9 L Carbon Dioxide 14 L BUN 73 H Creatinine 8.6 H Glucose POC Glucose Hemoglobin A1c Phosphorus Magnesium Total Bilirubin AST 48 H ALT Alkaline Phosphatase 136 H Total Creatine Kinase 2408 H CK-MB (CK-2) 17.6 H Total Protein Albumin Vitamin B12 Urine Creatinine Urine Total Protein 03/29/19 03/30/19 03/30/19 23:37 05:58 10:00 RBC Hgb Hct MCV MCH RDW Lymph % (Auto) [place] % (Auto) Lymph # [place] # Seg Neutrophils % Seg Neutrophils # POC ABG pH 7.143 L ABG pH POC ABG pCO2 50.5 H POC ABG pO2 159 H ABG pO2 ABG HCO3 ABG O2 Saturation ABG Base Excess ABG Hemoglobin Oxyhemoglobin Sodium Potassium Chloride Carbon Dioxide BUN Creatinine Glucose POC Glucose Hemoglobin A1c 6.4 H Phosphorus Magnesium Total Bilirubin AST ALT Alkaline Phosphatase Total Creatine Kinase CK-MB (CK-2) Total Protein Albumin Vitamin B12 Urine Creatinine 227.1 H Urine Total Protein 31 H 03/30/19 03/30/19 03/30/19 10:00 10:12 10:12 RBC 3.17 L Hgb 10.5 L Hct 31.8 L MCV 100 H MCH 33 H RDW Lymph % (Auto) 8.1 L [place] % (Auto) Lymph # 0.5 L [place] # Seg Neutrophils % 88.0 H Seg Neutrophils # POC ABG pH ABG pH POC ABG pCO2 POC ABG pO2 ABG pO2 ABG HCO3 ABG O2 Saturation ABG Base Excess ABG Hemoglobin Oxyhemoglobin Sodium 132 L Potassium 6.6 H* Chloride 91.9 L Carbon Dioxide 19 L BUN 89 H Creatinine 7.2 H Glucose 302 H POC Glucose Hemoglobin A1c Phosphorus 7.50 H Magnesium Total Bilirubin AST ALT Alkaline Phosphatase Total Creatine Kinase CK-MB (CK-2) Total Protein Albumin Vitamin B12 Urine Creatinine 230.8 H Urine Total Protein 32 H 03/30/19 03/30/19 03/30/19 11:42 16:54 17:45 RBC Hgb Hct MCV MCH RDW Lymph % (Auto) [place] % (Auto) Lymph # [place] # Seg Neutrophils % Seg Neutrophils # POC ABG pH ABG pH 7.294 L POC ABG pCO2 POC ABG pO2 ABG pO2 67.1 L ABG HCO3 19.4 L ABG O2 Saturation 91.4 L ABG Base Excess -6.7 L ABG Hemoglobin 9.9 L Oxyhemoglobin 89.4 L Sodium Potassium Chloride Carbon Dioxide BUN Creatinine Glucose POC Glucose 275 H 361 H Hemoglobin A1c Phosphorus Magnesium Total Bilirubin AST ALT Alkaline Phosphatase Total Creatine Kinase CK-MB (CK-2) Total Protein Albumin Vitamin B12 Urine Creatinine Urine Total Protein 03/30/19 03/30/19 03/30/19 20:00 20:28 23:27 RBC Hgb Hct MCV MCH RDW Lymph % (Auto) [place] % (Auto) Lymph # [place] # Seg Neutrophils % Seg Neutrophils # POC ABG pH ABG pH 7.293 L POC ABG pCO2 POC ABG pO2 ABG pO2 ABG HCO3 ABG O2 Saturation ABG Base Excess -5.9 L ABG Hemoglobin 11.0 L Oxyhemoglobin 94.1 L Sodium 134 L Potassium Chloride 92.9 L Carbon Dioxide 19 L BUN 93 H Creatinine 5.5 H Glucose 374 H POC Glucose 372 H Hemoglobin A1c Phosphorus Magnesium Total Bilirubin AST ALT Alkaline Phosphatase Total Creatine Kinase CK-MB (CK-2) Total Protein Albumin Vitamin B12 Urine Creatinine Urine Total Protein 03/31/19 03/31/19 03/31/19 04:39 04:39 05:27 RBC 3.08 L Hgb 10.3 L Hct 30.6 L MCV 99 H MCH 33 H RDW Lymph % (Auto) 6.5 L [place] % (Auto) Lymph # 0.3 L [place] # Seg Neutrophils % 86.6 H Seg Neutrophils # POC ABG pH ABG pH POC ABG pCO2 POC ABG pO2 ABG pO2 ABG HCO3 ABG O2 Saturation ABG Base Excess ABG Hemoglobin Oxyhemoglobin Sodium 135 L Potassium Chloride 92.7 L Carbon Dioxide BUN 92 H Creatinine 4.5 H Glucose 344 H POC Glucose 354 H Hemoglobin A1c Phosphorus Magnesium Total Bilirubin AST ALT Alkaline Phosphatase Total Creatine Kinase CK-MB (CK-2) Total Protein Albumin Vitamin B12 Urine Creatinine Urine Total Protein 03/31/19 03/31/19 03/31/19 08:03 12:08 17:08 RBC Hgb Hct MCV MCH RDW Lymph % (Auto) [place] % (Auto) Lymph # [place] # Seg Neutrophils % Seg Neutrophils # POC ABG pH ABG pH POC ABG pCO2 POC ABG pO2 ABG pO2 ABG HCO3 ABG O2 Saturation ABG Base Excess ABG Hemoglobin Oxyhemoglobin Sodium Potassium Chloride Carbon Dioxide BUN Creatinine Glucose POC Glucose 375 H 410 H 361 H Hemoglobin A1c Phosphorus Magnesium Total Bilirubin AST ALT Alkaline Phosphatase Total Creatine Kinase CK-MB (CK-2) Total Protein Albumin Vitamin B12 Urine Creatinine Urine Total Protein 03/31/19 04/01/19 04/01/19 23:12 05:22 08:28 RBC Hgb Hct MCV MCH RDW Lymph % (Auto) [place] % (Auto) Lymph # [place] # Seg Neutrophils % Seg Neutrophils # POC ABG pH ABG pH POC ABG pCO2 POC ABG pO2 ABG pO2 ABG HCO3 ABG O2 Saturation ABG Base Excess ABG Hemoglobin Oxyhemoglobin Sodium Potassium Chloride Carbon Dioxide BUN Creatinine Glucose POC Glucose 355 H 300 H 259 H Hemoglobin A1c Phosphorus Magnesium Total Bilirubin AST ALT Alkaline Phosphatase Total Creatine Kinase CK-MB (CK-2) Total Protein Albumin Vitamin B12 Urine Creatinine Urine Total Protein 04/01/19 04/01/19 04/01/19 11:35 16:18 23:27 RBC Hgb Hct MCV MCH RDW Lymph % (Auto) [place] % (Auto) Lymph # [place] # Seg Neutrophils % Seg Neutrophils # POC ABG pH ABG pH POC ABG pCO2 POC ABG pO2 ABG pO2 ABG HCO3 ABG O2 Saturation ABG Base Excess ABG Hemoglobin Oxyhemoglobin Sodium Potassium Chloride Carbon Dioxide BUN Creatinine Glucose POC Glucose 283 H 169 H 344 H Hemoglobin A1c Phosphorus Magnesium Total Bilirubin AST ALT Alkaline Phosphatase Total Creatine Kinase CK-MB (CK-2) Total Protein Albumin Vitamin B12 Urine Creatinine Urine Total Protein 04/02/19 04/02/19 04/02/19 02:39 03:09 05:11 RBC Hgb Hct MCV MCH RDW Lymph % (Auto) [place] % (Auto) Lymph # [place] # Seg Neutrophils % Seg Neutrophils # POC ABG pH 7.827 H ABG pH POC ABG pCO2 POC ABG pO2 157 H ABG pO2 ABG HCO3 ABG O2 Saturation ABG Base Excess ABG Hemoglobin Oxyhemoglobin Sodium 149 H D Potassium 3.3 L Chloride Carbon Dioxide 35 H D BUN 78 H Creatinine 2.2 H D Glucose 185 H POC Glucose 252 H Hemoglobin A1c Phosphorus Magnesium Total Bilirubin AST ALT Alkaline Phosphatase Total Creatine Kinase CK-MB (CK-2) Total Protein Albumin Vitamin B12 Urine Creatinine Urine Total Protein 04/02/19 04/02/19 04/02/19 05:31 08:28 11:46 RBC Hgb Hct MCV MCH RDW Lymph % (Auto) [place] % (Auto) Lymph # [place] # Seg Neutrophils % Seg Neutrophils # POC ABG pH ABG pH POC ABG pCO2 POC ABG pO2 ABG pO2 ABG HCO3 ABG O2 Saturation ABG Base Excess ABG Hemoglobin Oxyhemoglobin Sodium Potassium Chloride Carbon Dioxide BUN Creatinine Glucose POC Glucose 160 H 140 H 186 H Hemoglobin A1c Phosphorus Magnesium Total Bilirubin AST ALT Alkaline Phosphatase Total Creatine Kinase CK-MB (CK-2) Total Protein Albumin Vitamin B12 Urine Creatinine Urine Total Protein 04/02/19 04/02/19 04/03/19 14:45 20:59 00:23 RBC Hgb Hct MCV MCH RDW Lymph % (Auto) [place] % (Auto) Lymph # [place] # Seg Neutrophils % Seg Neutrophils # POC ABG pH ABG pH POC ABG pCO2 POC ABG pO2 ABG pO2 73.3 L ABG HCO3 34.3 H ABG O2 Saturation ABG Base Excess 8.7 H ABG Hemoglobin 11.1 L Oxyhemoglobin 93.5 L Sodium Potassium Chloride Carbon Dioxide BUN Creatinine Glucose POC Glucose 195 H 211 H Hemoglobin A1c Phosphorus Magnesium Total Bilirubin AST ALT Alkaline Phosphatase Total Creatine Kinase CK-MB (CK-2) Total Protein Albumin Vitamin B12 Urine Creatinine Urine Total Protein 04/03/19 04/03/19 04/03/19 05:48 05:48 06:00 RBC 3.46 L Hgb 11.5 L Hct 34.8 L MCV 101 H MCH 33 H RDW 15.5 H Lymph % (Auto) 13.2 L [place] % (Auto) 8.8 H Lymph # 0.8 L [place] # Seg Neutrophils % 77.8 H Seg Neutrophils # POC ABG pH ABG pH POC ABG pCO2 POC ABG pO2 ABG pO2 ABG HCO3 ABG O2 Saturation ABG Base Excess ABG Hemoglobin Oxyhemoglobin Sodium 152 H Potassium 3.1 L Chloride Carbon Dioxide 34 H BUN 71 H Creatinine 1.8 H Glucose 128 H POC Glucose 124 H Hemoglobin A1c Phosphorus Magnesium 2.50 H Total Bilirubin AST ALT Alkaline Phosphatase Total Creatine Kinase CK-MB (CK-2) Total Protein Albumin 3.6 L Vitamin B12 Urine Creatinine Urine Total Protein 04/03/19 04/03/19 04/03/19 12:42 21:00 22:04 RBC Hgb Hct MCV MCH RDW Lymph % (Auto) [place] % (Auto) Lymph # [place] # Seg Neutrophils % Seg Neutrophils # POC ABG pH ABG pH POC ABG pCO2 POC ABG pO2 ABG pO2 ABG HCO3 ABG O2 Saturation ABG Base Excess ABG Hemoglobin Oxyhemoglobin Sodium Potassium Chloride Carbon Dioxide BUN Creatinine Glucose POC Glucose 192 H 57 L Hemoglobin A1c Phosphorus Magnesium Total Bilirubin AST ALT Alkaline Phosphatase Total Creatine Kinase CK-MB (CK-2) Total Protein Albumin Vitamin B12 1568 H Urine Creatinine Urine Total Protein 04/03/19 04/04/19 04/04/19 23:21 00:42 04:23 RBC Hgb Hct MCV MCH RDW Lymph % (Auto) [place] % (Auto) Lymph # [place] # Seg Neutrophils % Seg Neutrophils # POC ABG pH ABG pH POC ABG pCO2 POC ABG pO2 ABG pO2 ABG HCO3 ABG O2 Saturation ABG Base Excess ABG Hemoglobin Oxyhemoglobin Sodium 155 H Potassium 3.1 L Chloride 107.8 H Carbon Dioxide 34 H BUN 64 H Creatinine 1.9 H Glucose POC Glucose 69 L 63 L Hemoglobin A1c Phosphorus Magnesium Total Bilirubin AST ALT Alkaline Phosphatase Total Creatine Kinase CK-MB (CK-2) Total Protein Albumin Vitamin B12 Urine Creatinine Urine Total Protein 04/04/19 04/04/19 04/04/19 11:46 16:31 22:12 RBC Hgb Hct MCV MCH RDW Lymph % (Auto) [place] % (Auto) Lymph # [place] # Seg Neutrophils % Seg Neutrophils # POC ABG pH ABG pH POC ABG pCO2 POC ABG pO2 ABG pO2 ABG HCO3 ABG O2 Saturation ABG Base Excess ABG Hemoglobin Oxyhemoglobin Sodium Potassium Chloride Carbon Dioxide BUN Creatinine Glucose POC Glucose 111 H 174 H 229 H Hemoglobin A1c Phosphorus Magnesium Total Bilirubin AST ALT Alkaline Phosphatase Total Creatine Kinase CK-MB (CK-2) Total Protein Albumin Vitamin B12 Urine Creatinine Urine Total Protein 04/05/19 04/05/19 04/05/19 05:08 07:46 11:27 RBC Hgb Hct MCV MCH RDW Lymph % (Auto) [place] % (Auto) Lymph # [place] # Seg Neutrophils % Seg Neutrophils # POC ABG pH ABG pH POC ABG pCO2 POC ABG pO2 ABG pO2 ABG HCO3 ABG O2 Saturation ABG Base Excess ABG Hemoglobin Oxyhemoglobin Sodium Potassium Chloride Carbon Dioxide BUN Creatinine Glucose POC Glucose 202 H 233 H 241 H Hemoglobin A1c Phosphorus Magnesium Total Bilirubin AST ALT Alkaline Phosphatase Total Creatine Kinase CK-MB (CK-2) Total Protein Albumin Vitamin B12 Urine Creatinine Urine Total Protein 04/05/19 04/05/19 04/05/19 12:58 16:15 21:56 RBC Hgb Hct MCV MCH RDW Lymph % (Auto) [place] % (Auto) Lymph # [place] # Seg Neutrophils % Seg Neutrophils # POC ABG pH ABG pH POC ABG pCO2 POC ABG pO2 ABG pO2 ABG HCO3 ABG O2 Saturation ABG Base Excess ABG Hemoglobin Oxyhemoglobin Sodium 149 H Potassium Chloride Carbon Dioxide 31 H BUN 67 H Creatinine 1.9 H Glucose 230 H POC Glucose 143 H 289 H Hemoglobin A1c Phosphorus Magnesium Total Bilirubin AST ALT Alkaline Phosphatase Total Creatine Kinase CK-MB (CK-2) Total Protein Albumin Vitamin B12 Urine Creatinine Urine Total Protein 04/06/19 04/06/19 04/06/19 05:25 07:12 07:52 RBC Hgb Hct MCV MCH RDW Lymph % (Auto) [place] % (Auto) Lymph # [place] # Seg Neutrophils % Seg Neutrophils # POC ABG pH ABG pH POC ABG pCO2 POC ABG pO2 ABG pO2 ABG HCO3 ABG O2 Saturation ABG Base Excess ABG Hemoglobin Oxyhemoglobin Sodium Potassium Chloride Carbon Dioxide BUN 56 H Creatinine 1.7 H Glucose 233 H POC Glucose 234 H 225 H Hemoglobin A1c Phosphorus Magnesium Total Bilirubin AST ALT Alkaline Phosphatase Total Creatine Kinase CK-MB (CK-2) Total Protein Albumin Vitamin B12 Urine Creatinine Urine Total Protein 04/06/19 04/06/19 04/06/19 12:12 16:58 21:53 RBC Hgb Hct MCV MCH RDW Lymph % (Auto) [place] % (Auto) Lymph # [place] # Seg Neutrophils % Seg Neutrophils # POC ABG pH ABG pH POC ABG pCO2 POC ABG pO2 ABG pO2 ABG HCO3 ABG O2 Saturation ABG Base Excess ABG Hemoglobin Oxyhemoglobin Sodium Potassium Chloride Carbon Dioxide BUN Creatinine Glucose POC Glucose 275 H 255 H 234 H Hemoglobin A1c Phosphorus Magnesium Total Bilirubin AST ALT Alkaline Phosphatase Total Creatine Kinase CK-MB (CK-2) Total Protein Albumin Vitamin B12 Urine Creatinine Urine Total Protein 04/07/19 04/07/19 04/07/19 02:51 10:40 10:40 RBC 3.51 L Hgb 11.4 L Hct 34.8 L MCV 99 H MCH RDW Lymph % (Auto) 6.0 L [place] % (Auto) Lymph # 0.6 L [place] # Seg Neutrophils % 86.9 H Seg Neutrophils # 9.4 H POC ABG pH ABG pH POC ABG pCO2 POC ABG pO2 ABG pO2 ABG HCO3 ABG O2 Saturation ABG Base Excess ABG Hemoglobin Oxyhemoglobin Sodium Potassium Chloride Carbon Dioxide 34 H BUN 50 H Creatinine Glucose 298 H POC Glucose 219 H Hemoglobin A1c Phosphorus Magnesium Total Bilirubin AST ALT Alkaline Phosphatase Total Creatine Kinase CK-MB (CK-2) Total Protein Albumin Vitamin B12 Urine Creatinine Urine Total Protein 04/07/19 04/07/19 04/07/19 11:53 18:38 22:33 RBC Hgb Hct MCV MCH RDW Lymph % (Auto) [place] % (Auto) Lymph # [place] # Seg Neutrophils % Seg Neutrophils # POC ABG pH ABG pH POC ABG pCO2 POC ABG pO2 ABG pO2 ABG HCO3 ABG O2 Saturation ABG Base Excess ABG Hemoglobin Oxyhemoglobin Sodium Potassium Chloride Carbon Dioxide BUN Creatinine Glucose POC Glucose 232 H 175 H 130 H Hemoglobin A1c Phosphorus Magnesium Total Bilirubin AST ALT Alkaline Phosphatase Total Creatine Kinase CK-MB (CK-2) Total Protein Albumin Vitamin B12 Urine Creatinine Urine Total Protein 04/08/19 04/08/19 04/08/19 05:42 06:19 07:19 RBC Hgb Hct MCV MCH RDW Lymph % (Auto) [place] % (Auto) Lymph # [place] # Seg Neutrophils % Seg Neutrophils # POC ABG pH ABG pH POC ABG pCO2 POC ABG pO2 ABG pO2 ABG HCO3 ABG O2 Saturation ABG Base Excess ABG Hemoglobin Oxyhemoglobin Sodium 149 H Potassium 3.5 L Chloride Carbon Dioxide 34 H BUN 40 H Creatinine Glucose POC Glucose 53 L 129 H Hemoglobin A1c Phosphorus Magnesium Total Bilirubin AST ALT Alkaline Phosphatase Total Creatine Kinase CK-MB (CK-2) Total Protein Albumin Vitamin B12 Urine Creatinine Urine Total Protein 04/08/19 04/08/19 04/08/19 11:15 16:58 23:51 RBC Hgb Hct MCV MCH RDW Lymph % (Auto) [place] % (Auto) Lymph # [place] # Seg Neutrophils % Seg Neutrophils # POC ABG pH ABG pH POC ABG pCO2 POC ABG pO2 ABG pO2 ABG HCO3 ABG O2 Saturation ABG Base Excess ABG Hemoglobin Oxyhemoglobin Sodium Potassium Chloride Carbon Dioxide BUN Creatinine Glucose POC Glucose 223 H 173 H 135 H Hemoglobin A1c Phosphorus Magnesium Total Bilirubin AST ALT Alkaline Phosphatase Total Creatine Kinase CK-MB (CK-2) Total Protein Albumin Vitamin B12 Urine Creatinine Urine Total Protein 04/09/19 04/09/19 04/09/19 09:09 11:28 13:23 RBC Hgb Hct MCV MCH RDW Lymph % (Auto) [place] % (Auto) Lymph # [place] # Seg Neutrophils % Seg Neutrophils # POC ABG pH ABG pH POC ABG pCO2 POC ABG pO2 ABG pO2 ABG HCO3 ABG O2 Saturation ABG Base Excess ABG Hemoglobin Oxyhemoglobin Sodium Potassium Chloride Carbon Dioxide 35 H BUN 34 H Creatinine Glucose 64 L 101 H POC Glucose 56 L Hemoglobin A1c Phosphorus Magnesium Total Bilirubin AST ALT Alkaline Phosphatase Total Creatine Kinase CK-MB (CK-2) Total Protein Albumin Vitamin B12 Urine Creatinine Urine Total Protein 04/09/19 04/09/19 04/10/19 17:53 23:11 09:10 RBC 3.26 L Hgb 10.8 L Hct 31.9 L MCV 98 H MCH 33 H RDW Lymph % (Auto) [place] % (Auto) 9.4 H Lymph # [place] # 0.9 H Seg Neutrophils % Seg Neutrophils # POC ABG pH ABG pH POC ABG pCO2 POC ABG pO2 ABG pO2 ABG HCO3 ABG O2 Saturation ABG Base Excess ABG Hemoglobin Oxyhemoglobin Sodium Potassium Chloride Carbon Dioxide BUN Creatinine Glucose POC Glucose 149 H 178 H Hemoglobin A1c Phosphorus Magnesium Total Bilirubin AST ALT Alkaline Phosphatase Total Creatine Kinase CK-MB (CK-2) Total Protein Albumin Vitamin B12 Urine Creatinine Urine Total Protein 04/10/19 04/10/19 04/10/19 09:10 12:52 16:31 RBC Hgb Hct MCV MCH RDW Lymph % (Auto) [place] % (Auto) Lymph # [place] # Seg Neutrophils % Seg Neutrophils # POC ABG pH ABG pH POC ABG pCO2 POC ABG pO2 ABG pO2 ABG HCO3 ABG O2 Saturation ABG Base Excess ABG Hemoglobin Oxyhemoglobin Sodium Potassium 3.5 L Chloride Carbon Dioxide 32 H BUN 29 H Creatinine Glucose 101 H POC Glucose 130 H 144 H Hemoglobin A1c Phosphorus Magnesium Total Bilirubin 1.30 H AST 49 H ALT 59 H Alkaline Phosphatase Total Creatine Kinase CK-MB (CK-2) Total Protein 5.3 L Albumin 2.6 L Vitamin B12 Urine Creatinine Urine Total Protein 04/10/19 04/11/19 04/11/19 23:56 07:39 12:12 RBC Hgb Hct MCV MCH RDW Lymph % (Auto) [place] % (Auto) Lymph # [place] # Seg Neutrophils % Seg Neutrophils # POC ABG pH ABG pH POC ABG pCO2 POC ABG pO2 ABG pO2 ABG HCO3 ABG O2 Saturation ABG Base Excess ABG Hemoglobin Oxyhemoglobin Sodium Potassium Chloride Carbon Dioxide BUN Creatinine Glucose POC Glucose 270 H 191 H 198 H Hemoglobin A1c Phosphorus Magnesium Total Bilirubin AST ALT Alkaline Phosphatase Total Creatine Kinase CK-MB (CK-2) Total Protein Albumin Vitamin B12 Urine Creatinine Urine Total Protein 04/11/19 04/11/19 04/12/19 16:34 21:48 11:49 RBC Hgb Hct MCV MCH RDW Lymph % (Auto) [place] % (Auto) Lymph # [place] # Seg Neutrophils % Seg Neutrophils # POC ABG pH ABG pH POC ABG pCO2 POC ABG pO2 ABG pO2 ABG HCO3 ABG O2 Saturation ABG Base Excess ABG Hemoglobin Oxyhemoglobin Sodium Potassium Chloride Carbon Dioxide BUN Creatinine Glucose POC Glucose 205 H 236 H 166 H Hemoglobin A1c Phosphorus Magnesium Total Bilirubin AST ALT Alkaline Phosphatase Total Creatine Kinase CK-MB (CK-2) Total Protein Albumin Vitamin B12 Urine Creatinine Urine Total Protein 04/12/19 04/12/19 04/13/19 16:46 21:43 11:36 RBC Hgb Hct MCV MCH RDW Lymph % (Auto) [place] % (Auto) Lymph # [place] # Seg Neutrophils % Seg Neutrophils # POC ABG pH ABG pH POC ABG pCO2 POC ABG pO2 ABG pO2 ABG HCO3 ABG O2 Saturation ABG Base Excess ABG Hemoglobin Oxyhemoglobin Sodium Potassium Chloride Carbon Dioxide BUN Creatinine Glucose POC Glucose 142 H 166 H 147 H Hemoglobin A1c Phosphorus Magnesium Total Bilirubin AST ALT Alkaline Phosphatase Total Creatine Kinase CK-MB (CK-2) Total Protein Albumin Vitamin B12 Urine Creatinine Urine Total Protein
--- NOTE | 2019-04-13 16:59 | Progress Note ---
Assessment and Plan This is a 58 yo male w history of COPD HUMA followed by Juan, who comes in w sob. He reports that he has had a progressive worsening of his symptoms associated w productive cough. He is not o2 dependent. He reports that he takes combivent as rescue and spiriva daily. He also reports a hx of HUMA but has not been using cpap because he is claustrophobic He reports that he has frequent exacerbations, treated as outpt. No reports of intubation He reports weakness which has been ongoing for a few yrs -Acute metabolic encephalopathy - improved likely due to etoh, and getting high dose ativan dc ativan for now, patient hasn't had a drink in over a week haldol prn, olanzapine prn, MR brain Showed no stoke , -Acute and chronic respiratory failure secondary to COPD exacerbation taper steroids per pulmonology - Debilitation PT/ oT -Afib with rvr and hypercoaguable state mgt per cardiology, rate control improved, cont eliquis -Acute renal failure due to ATN improving Cr down to 1.3 nephrology following, improving -Hypokalemia Correct furhter and recheck -Hypernatremia corrected Improved, change IVF to 1/4NS Metabolic acidosis - sp bicarbonate drip, resolved -Polysubstance abuse/etoh withdrawal -uds pos for amphetamines, per Juan, no documented hx of amphetamine abuse -he was rx with [facility] protocol for etoh abuse, ativan now dc -Type 2 diabetes mellitus with persistent hyperglycemia - Continue insulin coverage DVT prophylaxis - On heparin Disp[ositon: SNF placement Subjective Date of service: 04/13/19 Principal diagnosis: Afib Interval history: Calm and more cognitive. Objective - Exam Narrative Exam: Constitutional: Obese. more cognitive. Head: Normocephalic atraumatic Eyes: Pupils are equal round and reactive to light Nose: No enlarged turbinates, no septal deviation. Mouth: Moist mucous membranes. Neck: Supple no thyromegaly. No bruit. No JVD Heart: Regular rate and rhythm, S1-S2 normal. No rubs murmurs or gallop Lungs: Clear to auscultation bilaterally. no rales or rhonchi Abdomen: Soft, nontender. Bowel sound are present. Extremities: No edema, no cyanosis, no clubbing. Neuro: Alert oriented Oriented x3. No focal sensory or motor deficit. Skin: No rashes or hyperpigmented spots Musculoskeletal system: No joint pain or swelling Hematological: No petechia or subcutanous hemorrhages. Immunological: No multiple septic spots on the skin Lymphatic: No generalized lymphadenopathy Psychiatry: more alert - Constitutional Vitals: Vital Signs - 12hr 04/13/19 04/13/19 04/13/19 05:11 07:18 07:19 Temperature 97.3 F L Pulse Rate 53 L Pulse Rate [ 81 Anterior Bilateral Throughout] Respiratory 24 Rate Respiratory 19 Rate [Anterior Bilateral Throughout] Blood Pressure 96/55 Blood Pressure [Left] O2 Sat by Pulse 92 95 Oximetry 04/13/19 04/13/19 04/13/19 09:07 09:21 09:22 Temperature Pulse Rate 78 78 78 Pulse Rate [ Anterior Bilateral Throughout] Respiratory Rate Respiratory Rate [Anterior Bilateral Throughout] Blood Pressure 131/63 131/63 Blood Pressure 131/63 [Left] O2 Sat by Pulse Oximetry 04/13/19 04/13/19 04/13/19 09:24 09:38 12:06 Temperature 97.9 F Pulse Rate 78 78 Pulse Rate [ 81 Anterior Bilateral Throughout] Respiratory 22 Rate Respiratory 19 Rate [Anterior Bilateral Throughout] Blood Pressure 131/78 92/58 Blood Pressure [Left] O2 Sat by Pulse 92 Oximetry 04/13/19 14:00 Temperature Pulse Rate Pulse Rate [ 88 Anterior Bilateral Throughout] Respiratory Rate Respiratory 19 Rate [Anterior Bilateral Throughout] Blood Pressure Blood Pressure [Left] O2 Sat by Pulse Oximetry - Labs CBC & Chem 7: 04/10/19 09:10 04/10/19 09:10 Labs: Abnormal lab results 04/12/19 04/13/19 04/13/19 Range/Units 21:43 11:36 16:29 POC Glucose 166 H 147 H 191 H (70-105)
[2019-04-14 05:38] VITALS: BP 105/57
[2019-04-14] MEDS: TESSALON PERLES PO SCH (05:46)
[2019-04-14 06:09] LABS: Basophils # (Auto) 0.1 K/mm3 (0.0-0.1); Basophils % (Auto) 0.9 % (0.0-1.8); Eosinophils # (Auto) 0.1 K/mm3 (0.0-0.4); Eosinophils % (Auto) 0.6 % (0.0-4.3); Hemoglobin 10.1 gm/dl (11.8-15.2); Lymphocytes # (Auto) 2.3 K/mm3 (1.2-5.4); Lymphocytes % (Auto) 25.8 % (13.4-35.0); Mean Corpuscular HGB Conc 34 % (32-34); Mean Corpuscular Volume 98 fl (84-94); Monocytes # (Auto) 0.7 K/mm3 (0.0-0.8); Monocytes % (Auto) 7.4 % (0.0-7.3); Platelet Count 209 K/mm3 (140-440); Red Blood Count 3.06 M/mm3 (3.65-5.03); Red Cell Distribution Width 14.4 % (13.2-15.2)
[2019-04-14 06:41] LABS: Albumin 3.2 g/dL (3.9-5); Calcium 8.7 mg/dL (8.4-10.2)
[2019-04-14] MEDS: PULMICORT IH SCH (07:29)
[2019-04-14] MEDS: DUONEB *Not for PRN Use IH SCH ×2 (07:30→14:09)
[2019-04-14] MEDS: HumaLOG SUB-Q SCH ×2 (07:30→11:30)
[2019-04-14] MEDS: GLUCOPHAGE PO SCH (08:00)
--- NOTE | 2019-04-14 09:42 | Discharge Summary ---
Providers - Providers Date of Admission: 03/29/19 14:30 Attending physician: ROBERT REESE MD 03/29/19 14:27 Consult to Physician [CONS] Stat Comment: Consulting Provider: IVY GREGORIO Physician Instructions: Reason For Exam: renal failure 03/29/19 22:13 Consult to Physician [CONS] Routine Comment: Consulting Provider: TOMMIE KAT Physician Instructions: Reason For Exam: acute respiratory failure 03/31/19 18:41 Speech Therapy Evaluation and Treat [CONS] Routine Reason For Exam: Patient cough with meal 04/03/19 06:49 Consult to Physician [CONS] Routine Comment: Consulting Provider: LEONARD MENDEZ Physician Instructions: Reason For Exam: ams 04/12/19 15:30 Physical Therapy Evaluation and Treat [CONS] Routine Comment: Reason For Exam: Eval & Treat Primary care physician: YUKO OLIVA Hospitalization Reason for admission: AMS Condition: Stable Hospital course: This is a 58 yo male w history of COPD HUMA followed by [facility], who comes in w sob. He reports that he has had a progressive worsening of his symptoms associated w productive cough. He is not o2 dependent. He reports that he takes combivent as rescue and spiriva daily. He also reports a hx of HUMA but has not been using cpap because he is claustrophobic He reports that he has frequent exacerbations, treated as outpt. No reports of intubation He reports weakness which has been ongoing for a few yrs -Acute metabolic encephalopathy - improved MR brain Showed no stoke , [place] to be secondary to ETOH -Acute and chronic respiratory failure secondary to COPD exacerbation taper steroids per pulmonology - Debilitation PT/ oT -Afib with rvr and hypercoaguable state mgt per cardiology, rate control improved, cont eliquis -Acute renal failure due to ATN Cr down to 1.3 nephrology following, -Hypokalemia Corrected -Hypernatremia corrected Improved, change IVF to 1/4NS Metabolic acidosis -Polysubstance abuse/etoh withdrawal -uds pos for amphetamines, per [place], no documented hx of amphetamine abuse -he was rx with [facility] protocol for etoh abuse, ativan now dc -Type 2 diabetes mellitus with persistent hyperglycemia - Continue insulin coverage Obesity Sleep apnea Disposition: [id number] HOME [facility] Time spent for discharge: 35 mins Core Measure Documentation - Palliative Care Palliative Care/ Comfort Measures: Not Applicable - Core Measures Any of the following diagnoses?: none Exam - Physical Exam Narrative exam: Constitutional: Obese. more cognitive. Head: Normocephalic atraumatic Eyes: Pupils are equal round and reactive to light Nose: No enlarged turbinates, no septal deviation. Mouth: Moist mucous membranes. Neck: Supple no thyromegaly. No bruit. No JVD Heart: Regular rate and rhythm, S1-S2 normal. No rubs murmurs or gallop Lungs: Clear to auscultation bilaterally. no rales or rhonchi Abdomen: Soft, nontender. Bowel sound are present. Extremities: No edema, no cyanosis, no clubbing. Neuro: Alert oriented Oriented x3. No focal sensory or motor deficit. Skin: No rashes or hyperpigmented spots Musculoskeletal system: No joint pain or swelling Hematological: No petechia or subcutanous hemorrhages. Immunological: No multiple septic spots on the skin Lymphatic: No generalized lymphadenopathy Psychiatry: more alert - Constitutional Vitals: Temp Pulse Resp BP Pulse Ox 97.8 F 78 18 105/57 96 04/14/19 05:39 04/14/19 07:31 04/14/19 07:31 04/14/19 05:39 04/14/19 07:32 Plan Activity: advance as tolerated, fall precautions Diet: low salt Special Instructions: record daily weights, record daily BP diary, record blood sugar diary, physical therapy, occupational therapy Follow up with: YUKO OLIVA MD [Primary Care Provider] - 3-5 Days TERESA INGRAM MD [Staff Physician] - 7 Days DHARA KIRK MD [Staff Physician] - 7 Days IVY GREGORIO MD [Staff Physician] - 7 Days LEONARD MENDEZ MD [Staff Physician] - 7 Days Prescriptions: dilTIAZem CD [Cardizem CD] 300 mg PO QDAY #30 capsule predniSONE [Deltasone] 10 mg PO QDAY #2 tablet Apixaban [Eliquis] 5 mg PO BID #60 tablet AtorvaSTATin [Lipitor] 40 mg PO DAILY #30 tablet Metoprolol [Lopressor TAB] 50 mg PO BID #60 tablet ALBUTEROL NEB's [Proventil 0.083% NEBS] 2.5 mg IH Q4HRT PRN #60 nebu PRN Reason: Shortness Of Breath FLUoxetine HCL [Prozac] 10 mg PO QDAY #30 capsule QUEtiapine [SEROquel] 25 mg PO BID #60 tablet Tiotropium [employer] [Spiriva Respimat] 4 gm IH QDAY #1 mist.inhal Benzonatate [Tessalon Perles] 100 mg PO Q8HR #14 capsule Lisinopril [Zestril TAB] 5 mg PO QDAY #30 tablet Ipratropium/Albuterol Sulfate [DUONEB *Not for PRN Use*] 1 ampul IH TIDRT #90 ampul.neb Other Discharge Orders: Nebulizer (Amb) Location: None Selected
[2019-04-14] MEDS: PROTONIX PO SCH (09:53)
[2019-04-14] MEDS: LOPRESSOR PO SCH (09:53)
[2019-04-14] MEDS: PROzac PO SCH (09:53)
[2019-04-14] MEDS: CARDIZEM CD PO SCH (09:53)
[2019-04-14] MEDS: CEPHULAC PO SCH (09:54)
[2019-04-14] MEDS: ZESTRIL PO SCH (09:54)
[2019-04-14] MEDS: ELIQUIS PO SCH (09:54)
[2019-04-14] MEDS: LANTUS SUB-Q SCH (09:55)
[2019-04-14] MEDS: SODIUM CHLORIDE FLUSH SYRINGE 10 ML IV SCH (09:56)
[2019-04-14] MEDS ORDERED: DELTASONE PO SCH (10:00)
[2019-04-14] MEDS: SPIRIVA IH SCH (10:20)
== END 2019-04-14 13:00 | disposition home health service (06) | DRG 682 ==
LOC: ED 12:24 → CC1 14:30 → IMCU 03-30 14:16 → 4A 04-01 18:12 → 3A 04-04 15:01
PROVIDERS: ADMIT Internal Medicine; ATTEND Internal Medicine
PROC: 4A033R1 Measurement of Arterial Saturation, Peripheral, Percutaneous Approach (ICD-10-PCS; principal; 2019-03-29)
PROC: 5A09357 Assistance with Respiratory Ventilation, Less than 24 Consecutive Hours, Continuous Positive Airway Pressure (ICD-10-PCS; 2019-03-29)
PROC: 5A09357 Assistance with Respiratory Ventilation, Less than 24 Consecutive Hours, Continuous Positive Airway Pressure (ICD-10-PCS; 2019-03-30)
PROC: 5A09357 Assistance with Respiratory Ventilation, Less than 24 Consecutive Hours, Continuous Positive Airway Pressure (ICD-10-PCS; 2019-03-31)
PROC: 5A09357 Assistance with Respiratory Ventilation, Less than 24 Consecutive Hours, Continuous Positive Airway Pressure (ICD-10-PCS; 2019-04-01)
PROC: 5A09357 Assistance with Respiratory Ventilation, Less than 24 Consecutive Hours, Continuous Positive Airway Pressure (ICD-10-PCS; 2019-04-02)
PROC: 5A09357 Assistance with Respiratory Ventilation, Less than 24 Consecutive Hours, Continuous Positive Airway Pressure (ICD-10-PCS; 2019-04-03)
PROC: 5A09357 Assistance with Respiratory Ventilation, Less than 24 Consecutive Hours, Continuous Positive Airway Pressure (ICD-10-PCS; 2019-04-04)
PROC: 5A09357 Assistance with Respiratory Ventilation, Less than 24 Consecutive Hours, Continuous Positive Airway Pressure (ICD-10-PCS; 2019-04-05)
PROC: 5A09357 Assistance with Respiratory Ventilation, Less than 24 Consecutive Hours, Continuous Positive Airway Pressure (ICD-10-PCS; 2019-04-06)
PROC: 5A09357 Assistance with Respiratory Ventilation, Less than 24 Consecutive Hours, Continuous Positive Airway Pressure (ICD-10-PCS; 2019-04-07)
PROC: 5A09357 Assistance with Respiratory Ventilation, Less than 24 Consecutive Hours, Continuous Positive Airway Pressure (ICD-10-PCS; 2019-04-08)
PROC: 5A09357 Assistance with Respiratory Ventilation, Less than 24 Consecutive Hours, Continuous Positive Airway Pressure (ICD-10-PCS; 2019-04-09)
PROC: 5A09357 Assistance with Respiratory Ventilation, Less than 24 Consecutive Hours, Continuous Positive Airway Pressure (ICD-10-PCS; 2019-04-10)
PROC: 5A09357 Assistance with Respiratory Ventilation, Less than 24 Consecutive Hours, Continuous Positive Airway Pressure (ICD-10-PCS; 2019-04-11)
DX: N17.0 Acute kidney failure with tubular necrosis (principal); J96.21 Acute and chronic respiratory failure with hypoxia; G93.41 Metabolic encephalopathy; J44.1 Chronic obstructive pulmonary disease with (acute) exacerbation; E87.2 Acidosis; D68.59 Other primary thrombophilia; F10.239 Alcohol dependence with withdrawal, unspecified; J44.0 Chronic obstructive pulmonary disease with (acute) lower respiratory infection; E87.0 Hyperosmolality and hypernatremia; Z68.42 Body mass index [BMI] 45.0-49.9, adult; I47.1 Supraventricular tachycardia; J20.9 Acute bronchitis, unspecified; I48.91 Unspecified atrial fibrillation; G47.33 Obstructive sleep apnea (adult) (pediatric); F19.10 Other psychoactive substance abuse, uncomplicated; E87.5 Hyperkalemia; I95.9 Hypotension, unspecified; F40.240 Claustrophobia; E11.65 Type 2 diabetes mellitus with hyperglycemia; E83.39 Other disorders of phosphorus metabolism; E66.01 Morbid (severe) obesity due to excess calories; I10 Essential (primary) hypertension; F17.200 Nicotine dependence, unspecified, uncomplicated; Z79.899 Other long term (current) drug therapy; Z90.49 Acquired absence of other specified parts of digestive tract; Z72.89 Other problems related to lifestyle; Z82.49 Family history of ischemic heart disease and other diseases of the circulatory system; Z79.4 Long term (current) use of insulin; Z91.14 Patient's other noncompliance with medication regimen
CPT/HCPCS: 36415; 36600; 70450; 70551; 71045; 76705; 76770; 80048; 80053; 80074; 80076; 80307; 81001; 82140; 82550; 82553; 82570; 82607; 82803; 82947; 82962; 83036; 83735; 83930; 83935; 84100; 84156; 84300; 84439; 84443; 84484; 85025; 87040; 87086; 89050; 93005; 93010; 93306; 94640; 94644; 94660; 94760; G0378; A9270-GY; J0610; J0692; J1170; J1630; J1815; J1956; J2060; J2765; J2920; J2930; J3475; J3480; J7030; J7070; J7131; J7512

== ENCOUNTER 2019-04-17 23:32 | Inpatient (IN) | payer MEDICARE ==
[2019-04-17] MEDS ORDERED: CALCIUM GLUCONATE 2,000 MG in NACL 0.9% 100 ML IV ONE (23:46)
--- NOTE | 2019-04-18 00:24 | Emergency Department Report ---
ED General Adult HPI - General Chief complaint: Dizziness Stated complaint: DIZZINESS Time Seen by Provider: 04/17/19 23:36 Source: patient, EMS (verbal report received from EMS.ems notes not available at time of chart dictation), RN notes reviewed, old records reviewed Mode of arrival: Stretcher Limitations: Physical Limitation, Other (patient is a very poor historian) - History of Present Illness Initial comments: This is a 58-year-old gentleman. This patient is not known to this provider previously. The patient typically follows with the [facility] network. Past medical history is complex. Past medical history includes COPD, morbid obesity, obstructive sleep apnea, not using CPAP because of claustrophobia, history of metabolic encephalopathy, likely secondary to alcohol abuse, previously on high-dose Ativan, chronic respiratory failure, disability, history of A. fib with RVR, reported hypercoagulable state, currently on systemic anticoagulation, nikko also has history of renal insufficiency secondary to ATN, hypokalemia, hyponatremia, metabolic acidosis, polysubstance abuse, question amphetamine use, type 2 diabetes Patient brought to the hospital by EMS for weakness. Apparently, the patient was found to be hypotensive and bradycardic in the field. Complaints is for generalized weakness. Apparently, the patient believes that he is on at least 4 new medications. These medications include Cardizem CD, 300 mg, once daily, q uetiapine, 25 mg, twice daily, benzoate 100 mg, every 8 hours, metoprolol, 50 mg, twice daily. Patient states that he was taking all these medications as directed and prescribed. He states he did not overdose. He reports that after he took the medicines, he began to feel dizzy, lightheaded and weak. He is quite sure that he hasn't taken diltiazem or metoprolol in the past. He denies physical pain at this time. He denies headache, neck pain, chest pain, abdominal pain, hematemesis, bright red blood per rectum. The patient has chronic shortness of breath. EMS reportedly gave the patient atropine in the field without improvement in symptoms. -: Gradual Consistency: constant Improves with: none Worsens with: none - Related Data Home Medications Medication Instructions Recorded Confirmed Last Taken ALBUTEROL Inhaler (OR & NICU) 2 puff IH QID PRN 03/29/19 03/29/19 03/29/19 [ProAir HFA Inhaler] Glimepiride [Amaryl] 2 mg PO BID 03/29/19 03/29/19 03/27/19 Metformin HCl [metFORMIN] 1,000 mg PO BID 03/29/19 03/29/19 03/29/19 Pantoprazole [Protonix TAB] 40 mg PO QDAY 03/29/19 03/29/19 03/27/19 Previous Rx's Medication Instructions Recorded Last Taken Type ALBUTEROL NEB's [Proventil 0.083% 2.5 mg IH Q4HRT PRN #60 nebu 04/14/19 Unknown Rx NEBS] Apixaban [Eliquis] 5 mg PO BID #60 tablet 04/14/19 Unknown Rx AtorvaSTATin [Lipitor] 40 mg PO DAILY #30 tablet 04/14/19 Unknown Rx Benzonatate [Tessalon Perles] 100 mg PO Q8HR #14 capsule 04/14/19 Unknown Rx FLUoxetine HCL [Prozac] 10 mg PO QDAY #30 capsule 04/14/19 Unknown Rx Ipratropium/Albuterol Sulfate 1 ampul IH TIDRT #90 ampul.neb 04/14/19 Unknown Rx [DUONEB *Not for PRN Use*] Lisinopril [Zestril TAB] 5 mg PO QDAY #30 tablet 04/14/19 Unknown Rx Metoprolol [Lopressor TAB] 50 mg PO BID #60 tablet 04/14/19 Unknown Rx QUEtiapine [SEROquel] 25 mg PO BID #60 tablet 04/14/19 Unknown Rx Tiotropium [employer] [Spiriva 4 gm IH QDAY #1 mist.inhal 04/14/19 Unknown Rx Respimat] dilTIAZem CD [Cardizem CD] 300 mg PO QDAY #30 capsule 04/14/19 Unknown Rx predniSONE [Deltasone] 10 mg PO QDAY #2 tablet 04/14/19 Unknown Rx Allergies Allergy/AdvReac Type Severity Reaction Status Date / Time No Known Allergies Allergy Unverified 08/21/14 12:00 ED Review of Systems ROS: Stated complaint: DIZZINESS Other details as noted in HPI Constitutional: malaise, weakness. denies: fever Eyes: denies: eye discharge ENT: denies: epistaxis Respiratory: shortness of breath (chronic) Cardiovascular: denies: chest pain Gastrointestinal: denies: abdominal pain, nausea, vomiting, hematemesis, melena Genitourinary: denies: dysuria Musculoskeletal: myalgia (chronic) Skin: denies: lesions Neurological: weakness Hematological/Lymphatic: denies: easy bleeding ED Past Medical Hx - Past Medical History Previous Medical History?: Yes Hx Hypertension: Yes Hx Congestive Heart Failure: No Hx Diabetes: Yes Hx Liver Disease: No Hx Renal Disease: No Hx Asthma: No Hx COPD: Yes Additional medical history: A-Fib, High CHO, Ilieus - Surgical History Past Surgical History?: Yes Hx Appendectomy: Yes Additional Surgical History: shoulder, elbow, foot - Social History Smoking Status: Current Every Day Smoker Substance Use Type: Alcohol - Medications Home Medications: Home Medications Medication Instructions Recorded Confirmed Last Taken Type ALBUTEROL Inhaler (OR & NICU) 2 puff IH QID PRN 03/29/19 03/29/19 03/29/19 History [ProAir HFA Inhaler] Glimepiride [Amaryl] 2 mg PO BID 03/29/19 03/29/19 03/27/19 History Metformin HCl [metFORMIN] 1,000 mg PO BID 03/29/19 03/29/19 03/29/19 History Pantoprazole [Protonix TAB] 40 mg PO QDAY 03/29/19 03/29/19 03/27/19 History ALBUTEROL NEB's [Proventil 0.083% 2.5 mg IH Q4HRT PRN #60 nebu 04/14/19 Unknown Rx NEBS] Apixaban [Eliquis] 5 mg PO BID #60 tablet 04/14/19 Unknown Rx AtorvaSTATin [Lipitor] 40 mg PO DAILY #30 tablet 04/14/19 Unknown Rx Benzonatate [Tessalon Perles] 100 mg PO Q8HR #14 capsule 04/14/19 Unknown Rx FLUoxetine HCL [Prozac] 10 mg PO QDAY #30 capsule 04/14/19 Unknown Rx Ipratropium/Albuterol Sulfate 1 ampul IH TIDRT #90 ampul.neb 04/14/19 Unknown Rx [DUONEB *Not for PRN Use*] Lisinopril [Zestril TAB] 5 mg PO QDAY #30 tablet 04/14/19 Unknown Rx Metoprolol [Lopressor TAB] 50 mg PO BID #60 tablet 04/14/19 Unknown Rx QUEtiapine [SEROquel] 25 mg PO BID #60 tablet 04/14/19 Unknown Rx Tiotropium [employer] [Spiriva 4 gm IH QDAY #1 mist.inhal 04/14/19 Unknown Rx Respimat] dilTIAZem CD [Cardizem CD] 300 mg PO QDAY #30 capsule 04/14/19 Unknown Rx predniSONE [Deltasone] 10 mg PO QDAY #2 tablet 04/14/19 Unknown Rx ED Physical Exam - General Limitations: Physical Limitation, Other General appearance: alert, anxious, obese - Head Head exam: Present: atraumatic, normocephalic - Eye Eye exam: Present: normal appearance, EOMI. Absent: nystagmus - ENT ENT exam: Present: normal exam, normal orophraynx, mucous membranes moist, normal external ear exam - Neck Neck exam: Present: normal inspection, full ROM. Absent: tenderness, meningismus - Respiratory Respiratory exam: Present: normal lung sounds bilaterally, decreased breath sounds. Absent: respiratory distress, wheezes, rales, rhonchi, stridor - Cardiovascular Cardiovascular Exam: Present: bradycardia. Absent: tachycardia, irregular rhythm, systolic murmur, diastolic murmur, rubs, gallop - GI/Abdominal GI/Abdominal exam: Present: soft. Absent: distended, tenderness, guarding, rebound, rigid, pulsatile mass - Rectal Rectal exam: Present: deferred - Extremities Exam Extremities exam: Present: normal inspection, full ROM, pedal edema, other (2+ pulses noted in the bilateral upper, lower extremities. Compartments soft. No long bony tenderness. The pelvis is stable.). Absent: calf tenderness - Back Exam Back exam: Present: normal inspection, full ROM. Absent: tenderness, CVA tenderness (R), CVA tenderness (L), paraspinal tenderness, vertebral tenderness - Neurological Exam Neurological exam: Present: alert, other (Extraocular movements intact. Tongue midline. No facial droop. Facial sensation intact to light touch in the V1, V2, V3 distribution bilaterally. 5 and 5 strength in 4 extremities.. Sensation is intact to light touch in 4 extremities.). Absent: motor sensory deficit - Psychiatric Psychiatric exam: Present: normal affect, normal mood - Skin Skin exam: Present: warm, ecchymosis (ecchymosis noted to right medial thigh) ED Course - Reevaluation(s) Reevaluation #1: 04/18/19 00:27 Differential diagnosis, including not limited to: Symptomatic bradycardia, secondary to renal insufficiency, medication toxicity, including beta alexandro toxicity, calcium channel alexandro toxicity, atypical antipsychotic, acute coronary syndrome, hyperkalemia, pneumonia, urinary tract infection, sepsis, bacteremia, thyroid dysfunction 04/18/19 00:28 Assessment and plan: 58-year-old gentleman, bradycardic and hypotensive, but mentating without physical pain. Suspect cardiogenic shock, likely multifactorial. We will treat medically, with calcium, atropine, and sodium bicarbonate. Patient placed on powder worker, pacer pads, and supplemental oxygen. Once laboratory studies results, if no improvement, we will initiate central venous placement, and initiate vasopressor therapy. We will discuss with cardiology, critical care, and Poison Control [facility]. Discussed placement of central line with the patient was given verbal consent. He will also signed written consent. Contacted [facility], and discussed the case with Dr. Montalvo, who agrees with keeping the patient at this hospital, given hemodynamic instability at this time. Reevaluation #2: 04/18/19 03:18 Patient remains persistently hypotensive. He is received some fluid, insulin, sodium bicarbonate, calcium, magnesium, and atropine. Given persistent bradycardia and hypotension, right-sided femoral sterile central line is placed myself, in the right groin. Right internal jugular cannulation was initially unsuccessful. Also found to have elevated TSH. Hydrocortisone, Synthroid, empiric antibiotic coverage ordered. Discussed with critical care physician, Kandi Orellana, who is in agreement with plan, and indicates that her group will see the patient in the morning in consultation. Contacted [facility] [place] [facility], extensive discussion had with Dr. Lori Mcfadden, children's choir director. She is in agreement with initiation of norepinephrine therapy at this time, and has sent over protocol for high intensity insulin therapy, if patient is not improved. She recommends initiation of insulin therapy after patient has been maxed out on one or 2 pressors. At this point in time, no indication for lipid infusion, or ecmo bypass. Hospital physician is paced to arrange admission. Awaiting callback from cardiology. 04/18/19 03:25 Reevaluation #3: 04/18/19 03:52 glucagon not recommended by poisons given emetigenic potential bp 90s now patient appears in no distress Dr Norman Bowers to admit Reevaluation #4: 04/18/19 04:09 d/w Dr Jimmy Welsh, cardiology, his group will follow in consultation - Central Line Placement Right Femoral Consent Obtained: verbal consent, written consent, emergent situation Time Out Performed: Yes Patient Placed on Monitor/Pulse Ox: Yes MD Prep: mask, gown, gloves Central Line Prep: Povidone-Iodine 1%, Chlorhexidine scrub, sterile drapes applied Local Anesthesia Used: Lidocaine 2%, with Epi Amount of Anesthesia Used (mls): 10 Ultrasound Used for Placement: Yes Central Line Lumen Inserted: triple Bloods Obtained for Lab: Yes Central Line Position: good blood return, all ports aspirated, flus, sutured in place with 2-0 Dressing Applied: Tegaderm Patient Tolerated Procedure: well Complications: none Additional Comments: Risks, benefits, alternatives were discussed with patient, with nursing staff as witnesses. Patient signed informed consent for sterile central line placement. Initially, right internal jugular vein was attempted using typical barrier precautions, and typical septic technique. The right-sided internal jugular vein was visualized using ultrasound guidance, however, cannulation was unsuccessful. Therefore, right internal jugular vein cannulation was aborted, and the patient was reprepped, and redraped, with attention to the right femoral vein. Using ultrasound guidance, after appropriate anesthetic administration, the right femoral vein is visualized, cannulated successfully with 1 attempt, and the triple-lumen central line catheter is inserted by myself, on first attempt with no difficulty. The patient tolerated the procedure adequately and without consultation. ED Medical Decision Making - Lab Data Result diagrams: 04/18/19 00:30 04/18/19 00:26 Lab Results 04/18/19 04/18/19 04/18/19 Range/Units 00:26 00:26 00:26 WBC (4.5-11.0) K/mm3 RBC (3.65-5.03) M/mm3 Hgb (11.8-15.2) gm/dl Hct (35.5-45.6) % MCV (84-94) fl MCH (28-32) pg MCHC (32-34) % RDW (13.2-15.2) % Plt Count (140-440) K/mm3 PT 17.5 H (12.2-14.9) Sec. INR 1.47 H (0.87-1.13) Sodium 135 L (137-145) mmol/L Potassium 5.5 H D (3.6-5.0) mmol/L Chloride 96.4 L (98-107) mmol/L Carbon Dioxide 20 L D (22-30) mmol/L Anion Gap 24 mmol/L BUN 45 H (9-20) mg/dL Creatinine 3.1 H D (0.8-1.5) mg/dL Estimated GFR 21 ml/min BUN/Creatinine Ratio 15 % Glucose 205 H (75-100) mg/dL Calcium 7.9 L (8.4-10.2) mg/dL Magnesium 1.20 L (1.7-2.3) mg/dL Total Bilirubin 0.50 (0.1-1.2) mg/dL AST 30 (5-40) units/L ALT 45 (7-56) units/L Alkaline Phosphatase 101 (35-129) units/L Total Creatine Kinase 122 (55-170) units/L Troponin T 0.052 H (0.00-0.029) ng/mL Total Protein 5.1 L (6.3-8.2) g/dL Albumin 3.1 L (3.9-5) g/dL Albumin/Globulin Ratio 1.6 % Triglycerides 95 (2-149) mg/dL Cholesterol 119 (50-199) mg/dL LDL Cholesterol Direct 59 (50-130) mg/dL HDL Cholesterol 53 (40-59) mg/dL Cholesterol/HDL Ratio 2.24 % TSH (0.270-4.200) mlU/mL Free T4 (0.76-1.46) ng/dL Salicylates (2.8-20.0) mg/dL Acetaminophen (10.0-30.0) ug/mL Plasma/Serum Alcohol (0-0.07) % Blood Type Antibody Screen 04/18/19 04/18/19 04/18/19 Range/Units 00:26 00:26 00:26 WBC (4.5-11.0) K/mm3 RBC (3.65-5.03) M/mm3 Hgb (11.8-15.2) gm/dl Hct (35.5-45.6) % MCV (84-94) fl MCH (28-32) pg MCHC (32-34) % RDW (13.2-15.2) % Plt Count (140-440) K/mm3 PT (12.2-14.9) Sec. INR (0.87-1.13) Sodium (137-145) mmol/L Potassium (3.6-5.0) mmol/L Chloride (98-107) mmol/L Carbon Dioxide (22-30) mmol/L Anion Gap mmol/L BUN (9-20) mg/dL Creatinine (0.8-1.5) mg/dL Estimated GFR ml/min BUN/Creatinine Ratio % Glucose (75-100) mg/dL Calcium (8.4-10.2) mg/dL Magnesium (1.7-2.3) mg/dL Total Bilirubin (0.1-1.2) mg/dL AST (5-40) units/L ALT (7-56) units/L Alkaline Phosphatase (35-129) units/L Total Creatine Kinase (55-170) units/L Troponin T (0.00-0.029) ng/mL Total Protein (6.3-8.2) g/dL Albumin (3.9-5) g/dL Albumin/Globulin Ratio % Triglycerides (2-149) mg/dL Cholesterol (50-199) mg/dL LDL Cholesterol Direct (50-130) mg/dL HDL Cholesterol (40-59) mg/dL Cholesterol/HDL Ratio % TSH 9.560 H (0.270-4.200) mlU/mL Free T4 1.13 (0.76-1.46) ng/dL Salicylates < 0.3 L (2.8-20.0) mg/dL Acetaminophen (10.0-30.0) ug/mL Plasma/Serum Alcohol (0-0.07) % Blood Type Antibody Screen 04/18/19 04/18/19 04/18/19 Range/Units 00:26 00:26 00:30 WBC 9.6 (4.5-11.0) K/mm3 RBC 2.52 L (3.65-5.03) M/mm3 Hgb 8.3 L (11.8-15.2) gm/dl Hct 24.9 L (35.5-45.6) % MCV 99 H (84-94) fl MCH 33 H (28-32) pg MCHC 33 (32-34) % RDW 15.2 (13.2-15.2) % Plt Count 177 (140-440) K/mm3 PT (12.2-14.9) Sec. INR (0.87-1.13) Sodium (137-145) mmol/L Potassium (3.6-5.0) mmol/L Chloride (98-107) mmol/L Carbon Dioxide (22-30) mmol/L Anion Gap mmol/L BUN (9-20) mg/dL Creatinine (0.8-1.5) mg/dL Estimated GFR ml/min BUN/Creatinine Ratio % Glucose (75-100) mg/dL Calcium (8.4-10.2) mg/dL Magnesium (1.7-2.3) mg/dL Total Bilirubin (0.1-1.2) mg/dL AST (5-40) units/L ALT (7-56) units/L Alkaline Phosphatase (35-129) units/L Total Creatine Kinase (55-170) units/L Troponin T (0.00-0.029) ng/mL Total Protein (6.3-8.2) g/dL Albumin (3.9-5) g/dL Albumin/Globulin Ratio % Triglycerides (2-149) mg/dL Cholesterol (50-199) mg/dL LDL Cholesterol Direct (50-130) mg/dL HDL Cholesterol (40-59) mg/dL Cholesterol/HDL Ratio % TSH (0.270-4.200) mlU/mL Free T4 (0.76-1.46) ng/dL Salicylates (2.8-20.0) mg/dL Acetaminophen < 5.0 L (10.0-30.0) ug/mL Plasma/Serum Alcohol < 0.01 (0-0.07) % Blood Type Antibody Screen 04/18/19 Range/Units 00:33 WBC (4.5-11.0) K/mm3 RBC (3.65-5.03) M/mm3 Hgb (11.8-15.2) gm/dl Hct (35.5-45.6) % MCV (84-94) fl MCH (28-32) pg MCHC (32-34) % RDW (13.2-15.2) % Plt Count (140-440) K/mm3 PT (12.2-14.9) Sec. INR (0.87-1.13) Sodium (137-145) mmol/L Potassium (3.6-5.0) mmol/L Chloride (98-107) mmol/L Carbon Dioxide (22-30) mmol/L Anion Gap mmol/L BUN (9-20) mg/dL Creatinine (0.8-1.5) mg/dL Estimated GFR ml/min BUN/Creatinine Ratio % Glucose (75-100) mg/dL Calcium (8.4-10.2) mg/dL Magnesium (1.7-2.3) mg/dL Total Bilirubin (0.1-1.2) mg/dL AST (5-40) units/L ALT (7-56) units/L Alkaline Phosphatase (35-129) units/L Total Creatine Kinase (55-170) units/L Troponin T (0.00-0.029) ng/mL Total Protein (6.3-8.2) g/dL Albumin (3.9-5) g/dL Albumin/Globulin Ratio % Triglycerides (2-149) mg/dL Cholesterol (50-199) mg/dL LDL Cholesterol Direct (50-130) mg/dL HDL Cholesterol (40-59) mg/dL Cholesterol/HDL Ratio % TSH (0.270-4.200) mlU/mL Free T4 (0.76-1.46) ng/dL Salicylates (2.8-20.0) mg/dL Acetaminophen (10.0-30.0) ug/mL Plasma/Serum Alcohol (0-0.07) % Blood Type O POSITIVE Antibody Screen Negative - EKG Data -: EKG Interpreted by Tn - EKG Data 04/18/19 00:29 This is a bradycardic rhythm, junctional, 40 beats for minute, low voltage, QTC 430 ms, QTc interval 526 ms, the EKG is abnormal, there is no endorsement of chest pain, the EKG is not consistent with ST elevation myocardial infarction. - Radiology Data Radiology results: report reviewed, image reviewed Print Report Referring Physician: BLAZE SUE Patient Name: ALYSE DUNBAR Date of : 1960 Sex: Male Report Date: 2019-04-18 Report Status: Finalized Findings [facility] [address] [place] [address] XRay Report Signed Patient: ALYSE DUNBAR MR#: [id number] : 1960 ct:[id number] Age/Sex: 58 / M ADM Date: 04/17/19 Loc: ED Attending Dr: Ordering Physician: BLAZE SUE MD Date of Service: 04/17/19 Procedure(s): XR chest 1V ap Accession Number(s): [id number] cc: BLAZE SUE MD Fluoro Time In Minutes: CHEST 1 VIEW 04/18/2019 12:22 AM INDICATION / CLINICAL INFORMATION: weak hypoxia. COMPARISON: Chest x-ray 03/29/2019 FINDINGS: SUPPORT DEVICES: None. HEART / MEDIASTINUM: Cardiac silhouette is upper limits normal in size for AP technique. LUNGS / PLEURA: No significant pulmonary or pleural abnormality. No pneumothorax. ADDITIONAL FINDINGS: No significant additional findings. IMPRESSION: 1. No acute findings. Signer Name: Bubba Medrano MD Signed: 04/18/2019 1:15 AM Workstation Name: [id number] Transcribed By: TL Dictated By: Bubba Medrano MD Electronically Authenticated By: Bubba Medrano MD Signed Date/Time: 04/18/19 0115 Critical Care Time: Yes Critical care time in (mins) excluding proc time.: 180 Critical care attestation.: If time is entered above; I have spent that time in minutes in the direct care of this critically ill patient, excluding procedure time. ED Disposition Clinical Impression: Bradycardia, Hypotension, TEGAN (acute kidney injury), Hyperkalemia, Hypomagnesemia, Obesity due to excess calories with serious comorbidity, Sleep apnea, COPD (chronic obstructive pulmonary disease) Disposition: OP ADMIT IP TO THIS HOSP Is pt being admited?: Yes Condition: Critical Instructions: Chronic Obstructive Pulmonary Disease (ED) Referrals: BOB PANDEY MD [Primary Care Provider] - 3-5 Days
[2019-04-18] MEDS ORDERED: ATROPINE IV ONE (00:26)
[2019-04-18] MEDS ORDERED: ATIVAN IV PRN ×3 (00:27)
[2019-04-18] MEDS ORDERED: XYLOCAINE 2%/EPI 1:100,000 INFILTRATI ONE ×2 (00:27→02:40)
[2019-04-18 00:50] LABS: Hematocrit 24.9 % (35.5-45.6); Hemoglobin 8.3 gm/dl (11.8-15.2); Mean Corpuscular HGB Conc 33 % (32-34); Mean Corpuscular Volume 99 fl (84-94); Platelet Count 177 K/mm3 (140-440); Red Blood Count 2.52 M/mm3 (3.65-5.03); Red Cell Distribution Width 15.2 % (13.2-15.2)
[2019-04-18 01:02] LABS: INR 1.47 (0.87-1.13)
[2019-04-18 01:17] LABS: Albumin 3.1 g/dL (3.9-5); Calcium 7.9 mg/dL (8.4-10.2)
--- NOTE | 2019-04-18 01:20 | XRay Report ---
CHEST 1 VIEW 04/18/2019 12:22 AM INDICATION / CLINICAL INFORMATION: weak hypoxia. COMPARISON: Chest x-ray 03/29/2019 FINDINGS: SUPPORT DEVICES: None. HEART / MEDIASTINUM: Cardiac silhouette is upper limits normal in size for AP technique. LUNGS / PLEURA: No significant pulmonary or pleural abnormality. No pneumothorax. ADDITIONAL FINDINGS: No significant additional findings. IMPRESSION: 1. No acute findings. Signer Name: Bubba Medrano MD Signed: 04/18/2019 1:15 AM Workstation Name: [id number]
[2019-04-18] MEDS ORDERED: MAGNESIUM SULFATE 2GM/50ML 2 GM/50 ML BAG IV ONE ×2 (01:23→14:26)
[2019-04-18] MEDS ORDERED: HumuLIN R IV ONE (01:43)
[2019-04-18] MEDS ORDERED: NACL 0.9% 500 ML 500 ML IV ONE (01:43)
[2019-04-18] MEDS ORDERED: LEVOPHED DRIP 4 MG/NS 250 ML 4 MG/250 ML BAG IV SCH (02:00)
[2019-04-18 02:19] LABS: Chol/HDL Ratio 2.24 %
[2019-04-18] MEDS ORDERED: SYNTHROID IV STA (02:59)
[2019-04-18] MEDS ORDERED: MAXIPIME/NS 2 GM/100 ML 2 GM/100 ML BAG IV SCH (03:00)
[2019-04-18] MEDS ORDERED: CALCIUM CHLORIDE IV ONE ×2 (03:21→05:30)
[2019-04-18] MEDS ORDERED: INTROPIN DRIP 800 MG/D5W 250 ML 800 MG/250 ML BAG IV ONE (03:49)
[2019-04-18] MEDS ORDERED: NACL 0.9% 1000 ML 1,000 ML IV ONE (03:49)
[2019-04-18] MEDS ORDERED: KIONEX PO ONE (03:51)
[2019-04-18] MEDS ORDERED: NACL 0.9% 1000 ML 1,000 ML IV SCH (04:00)
--- NOTE | 2019-04-18 04:07 | History and Physical Report ---
History of Present Illness Date of examination: 04/18/19 History of present illness: 58-year-old male with multiple medical problems, hypertension, diabetes, depression, hyperlipidemia, COPD, A. fib, chronic kidney disease, obesity comes emergency room feeling dizzy. Patient stated his symptoms started shortly after taking his night medications, which include calcium channel alexandro and a beta alexandro, also stated that he felt hot. In the emergency room he was hypotensive, bradycardic, I saw the patient his heart rate was 34. He was given hydrocortisone, Synthroid, cefepime, treated for hyperkalemia eview Of Systems: Constitutional: no weight loss, fever, chills Ears, eyes, nose, mouth and throat: no nasal congestion, no nasal discharge, no sinus pressure, blurry vision, diplopia Neck: No neck pain or rigidity. Cardiovascular: No palpitations, chest pain Respiratory: No shortness of breath, cough Gastrointestinal: No hematochezia, abdominal pain Genitourinary : no dysuria, frequency , hematuria Musculoskeletal: no muscle ache , joint pain Integumentary: no rash, no pruritis Neurological: no parathesias, focal weakness Endocrine: no cold or heat intolerance, no polyuria or polydipsia Hematologic/Lymphatic: no easy bruising, no easy bleeding, no gland swelling Allergic/Immunologic: no urticaria, no angioedema. PAST MEDICAL HISTORY: hypertension, diabetes, depression, hyperlipidemia, COPD, A. fib, chronic kidney disease, obesity. huma PAST SURGICAL HISTORY: Appendicectomy FAMILY HISTORY:hypertension, diabetes SOCIAL HISTORY: Denies tobacco, drugs, QUIT alcohol Medications and Allergies Allergies Allergy/AdvReac Type Severity Reaction Status Date / Time No Known Allergies Allergy Unverified 08/21/14 12:00 Home Medications Medication Instructions Recorded Confirmed Last Taken Type ALBUTEROL Inhaler (OR & NICU) 2 puff IH QID PRN 03/29/19 04/18/19 04/17/19 History [ProAir HFA Inhaler] Glimepiride [Amaryl] 2 mg PO BID 03/29/19 04/18/19 04/17/19 History Metformin HCl [metFORMIN] 1,000 mg PO BID 03/29/19 04/18/19 04/17/19 History Pantoprazole [Protonix TAB] 40 mg PO QDAY 03/29/19 04/18/19 04/17/19 History ALBUTEROL NEB's [Proventil 0.083% 2.5 mg IH Q4HRT PRN #60 nebu 04/14/19 04/18/19 04/17/19 Rx NEBS] Apixaban [Eliquis] 5 mg PO BID #60 tablet 04/14/19 04/18/19 04/17/19 Rx AtorvaSTATin [Lipitor] 40 mg PO DAILY #30 tablet 04/14/19 04/18/19 04/16/19 Rx Benzonatate [Tessalon Perles] 100 mg PO Q8HR #14 capsule 04/14/19 04/18/19 04/16/19 Rx FLUoxetine HCL [Prozac] 10 mg PO QDAY #30 capsule 04/14/19 04/18/19 04/17/19 Rx Ipratropium/Albuterol Sulfate 1 ampul IH TIDRT #90 ampul.neb 04/14/19 04/18/19 0 04/17/19 Rx [DUONEB *Not for PRN Use*] Metoprolol [Lopressor TAB] 50 mg PO BID #60 tablet 04/14/19 04/18/19 04/17/19 Rx QUEtiapine [SEROquel] 25 mg PO BID #60 tablet 04/14/19 04/18/19 04/16/19 Rx Tiotropium [place] [Spiriva 4 gm IH QDAY #1 mist.inhal 04/14/19 04/18/19 04/17/19 Rx Respimat] dilTIAZem CD [Cardizem CD] 300 mg PO QDAY #30 capsule 04/14/19 04/18/19 04/17/19 Rx predniSONE [Deltasone] 10 mg PO QDAY #2 tablet 04/14/19 04/18/19 04/17/19 Rx Active Meds: Active Medications Dopamine HCl/Dextrose (Intropin Drip 800 Mg/D5w 250 Ml) 800 mg in 250 mls @ 5.456 mls/hr IV TITR ONE; Protocol Stop: 04/20/19 01:38 Sodium Chloride (Nacl 0.9% 1000 Ml) 1,000 mls @ 999 mls/hr IV ONCE ONE Stop: 04/18/19 04:49 Sodium Chloride (Nacl 0.9% 1000 Ml) 1,000 mls @ 75 mls/hr IV DIRECT RADHA Exam - Physical Exam Narrative exam: General Apperance: The patient sitting in bed no acute distress HEENT: Normocephalic, atraumatic. Pupils equally round and reactive to light, extraocular movement intact, and no sclericterus or JVD or thyromegaly or nodule. Neck supple, no carotid bruit, mucous membranes dry, no exudate or erythema Heart: S1-S2, regular is rhythm Lungs: Clear to auscultation bilaterally, breathing comfortable Abdomen: Positive bowel sounds, soft, nontender, nondistended, no organomegaly Extremities: No edema cyanosis clubbing Skin: no rash, nodule, warm and dry Neuro:CN 2 -12 intact, motor/sensory intact, speech is fluent Results - Labs CBC & Chem 7: 04/18/19 00:30 04/18/19 12:05 Labs: Abnormal lab results 04/18/19 04/18/19 04/18/19 Range/Units 00:26 00:26 00:26 RBC (3.65-5.03) M/mm3 Hgb (11.8-15.2) gm/dl Hct (35.5-45.6) % MCV (84-94) fl MCH (28-32) pg PT 17.5 H (12.2-14.9) Sec. INR 1.47 H (0.87-1.13) Sodium 135 L (137-145) mmol/L Potassium 5.5 H D (3.6-5.0) mmol/L Chloride 96.4 L (98-107) mmol/L Carbon Dioxide 20 L D (22-30) mmol/L BUN 45 H (9-20) mg/dL Creatinine 3.1 H D (0.8-1.5) mg/dL Glucose 205 H (75-100) mg/dL Calcium 7.9 L (8.4-10.2) mg/dL Magnesium 1.20 L (1.7-2.3) mg/dL Troponin T 0.052 H (0.00-0.029) ng/mL Total Protein 5.1 L (6.3-8.2) g/dL Albumin 3.1 L (3.9-5) g/dL TSH (0.270-4.200) mlU/mL Salicylates (2.8-20.0) mg/dL Acetaminophen (10.0-30.0) ug/mL 04/18/19 04/18/19 04/18/19 Range/Units 00:26 00:26 00:26 RBC (3.65-5.03) M/mm3 Hgb (11.8-15.2) gm/dl Hct (35.5-45.6) % MCV (84-94) fl MCH (28-32) pg PT (12.2-14.9) Sec. INR (0.87-1.13) Sodium (137-145) mmol/L Potassium (3.6-5.0) mmol/L Chloride (98-107) mmol/L Carbon Dioxide (22-30) mmol/L BUN (9-20) mg/dL Creatinine (0.8-1.5) mg/dL Glucose (75-100) mg/dL Calcium (8.4-10.2) mg/dL Magnesium (1.7-2.3) mg/dL Troponin T (0.00-0.029) ng/mL Total Protein (6.3-8.2) g/dL Albumin (3.9-5) g/dL TSH 9.560 H (0.270-4.200) mlU/mL Salicylates < 0.3 L (2.8-20.0) mg/dL Acetaminophen < 5.0 L (10.0-30.0) ug/mL 04/18/19 Range/Units 00:30 RBC 2.52 L (3.65-5.03) M/mm3 Hgb 8.3 L (11.8-15.2) gm/dl Hct 24.9 L (35.5-45.6) % MCV 99 H (84-94) fl MCH 33 H (28-32) pg PT (12.2-14.9) Sec. INR (0.87-1.13) Sodium (137-145) mmol/L Potassium (3.6-5.0) mmol/L Chloride (98-107) mmol/L Carbon Dioxide (22-30) mmol/L BUN (9-20) mg/dL Creatinine (0.8-1.5) mg/dL Glucose (75-100) mg/dL Calcium (8.4-10.2) mg/dL Magnesium (1.7-2.3) mg/dL Troponin T (0.00-0.029) ng/mL Total Protein (6.3-8.2) g/dL Albumin (3.9-5) g/dL TSH (0.270-4.200) mlU/mL Salicylates (2.8-20.0) mg/dL Acetaminophen (10.0-30.0) ug/mL - Imaging and Cardiology EKG: image reviewed Chest x-ray: report reviewed Assessment and Plan Assessment Bradycardia secondary to calcium and beta blockers hypotension secondary to the above Renal failure, acute on chronic Hyperkalemia Abnormal cardiac enzymes diabetes depression hyperlipidemia COPD A. fib HUMA obesity Plan Admit to medicine Discontinue levophed and start dopamine drip Start IV fluid, check cardiac enzymes, consult cardiology,critical care give kayexlate, follow potassium Fingersticks initiate insulin sliding scale DVT prophylaxis
[2019-04-18] MEDS ORDERED: SODIUM CHLORIDE FLUSH SYRINGE 10 ML IV PRN (04:12)
[2019-04-18] MEDS ORDERED: ZOFRAN IV PRN (04:12)
[2019-04-18] MEDS ORDERED: D50W (25GM) Syringe IV PRN (04:21)
[2019-04-18 04:58] LABS: Creatine Kinase MB 4.6 ng/mL (0.0-4.0)
--- NOTE | 2019-04-18 05:45 | Ultrasound Report ---
ULTRASOUND RENAL INDICATION: arf. COMPARISON: No relevant prior imaging study available. FINDINGS: RIGHT KIDNEY: Size: 12.3 cm. Echogenicity: Normal. Cortical thickness: Normal. Hydronephrosis: None. Cyst or mass: None. Stones: Nonobstructing 1.5 cm right intrarenal stone.. LEFT KIDNEY: Size: 11.0 cm. Echogenicity: Normal. Cortical thickness: Normal. Hydronephrosis: None. Cyst or mass: None. Stones: None. Urinary Bladder: No significant abnormality. Free Fluid: None. Additional Findings: None. IMPRESSION 1. 1.5 cm right nonobstructing intrarenal stone. No hydronephrosis.. Signer Name: Bubba Medrano MD Signed: 04/18/2019 5:40 AM Workstation Name: [id number]
[2019-04-18] MEDS: HumaLOG SUB-Q SCH ×4 (06:50→22:03)
[2019-04-18] MEDS ORDERED: HumuLIN R ONE (07:03)
--- NOTE | 2019-04-18 08:50 | Consultation ---
History of Present Illness Consult date: 04/18/19 Requesting physician: BLAZE SUE History of present illness: PCCM CONSULT NOTE (Full dictation # [id number]) Please see dictated notes for full details Medications and Allergies Allergies Allergy/AdvReac Type Severity Reaction Status Date / Time No Known Allergies Allergy Unverified 08/21/14 12:00 Home Medications Medication Instructions Recorded Confirmed Last Taken Type ALBUTEROL Inhaler (OR & NICU) 2 puff IH QID PRN 03/29/19 04/18/19 04/17/19 History [ProAir HFA Inhaler] Glimepiride [Amaryl] 2 mg PO BID 03/29/19 04/18/19 04/17/19 History Metformin HCl [metFORMIN] 1,000 mg PO BID 03/29/19 04/18/19 04/17/19 History Pantoprazole [Protonix TAB] 40 mg PO QDAY 03/29/19 04/18/19 04/17/19 History ALBUTEROL NEB's [Proventil 0.083% 2.5 mg IH Q4HRT PRN #60 nebu 04/14/19 04/18/19 04/17/19 Rx NEBS] Apixaban [Eliquis] 5 mg PO BID #60 tablet 04/14/19 04/18/19 04/17/19 Rx AtorvaSTATin [Lipitor] 40 mg PO DAILY #30 tablet 04/14/19 04/18/19 04/16/19 Rx Benzonatate [Tessalon Perles] 100 mg PO Q8HR #14 capsule 04/14/19 04/18/19 04/16/19 Rx FLUoxetine HCL [Prozac] 10 mg PO QDAY #30 capsule 04/14/19 04/18/19 04/17/19 Rx Ipratropium/Albuterol Sulfate 1 ampul IH TIDRT #90 ampul.neb 04/14/19 04/18/19 04/17/19 Rx [DUONEB *Not for PRN Use*] Metoprolol [Lopressor TAB] 50 mg PO BID #60 tablet 04/14/19 04/18/19 04/17/19 Rx QUEtiapine [SEROquel] 25 mg PO BID #60 tablet 04/14/19 04/18/19 04/16/19 Rx Tiotropium [place] [Spiriva 4 gm IH QDAY #1 mist.inhal 04/14/19 04/18/19 04/17/19 Rx Respimat] dilTIAZem CD [Cardizem CD] 300 mg PO QDAY #30 capsule 04/14/19 04/18/19 04/17/19 Rx predniSONE [Deltasone] 10 mg PO QDAY #2 tablet 04/14/19 04/18/19 04/17/19 Rx Active Meds: Active Medications Acetaminophen (Tylenol) 650 mg PO Q4H PRN PRN Reason: Pain MILD(1-3)/Fever >100.5/ARIAS Apixaban (Eliquis) 5 mg PO Q12HR RADHA; Protocol Dextrose (D50w (25gm) Syringe) 50 ml IV PRN PRN PRN Reason: Hypoglycemia Dopamine HCl/Dextrose (Intropin Drip 800 Mg/D5w 250 Ml) 800 mg in 250 mls @ 5.456 mls/hr IV TITR ONE; Protocol Stop: 04/20/19 01:38 Last Titration: 04/18/19 04:15 Dose: 12 mcg/kg/min, 32.738 mls/hr Documented by: Sodium Chloride (Nacl 0.9% 1000 Ml) 1,000 mls @ 75 mls/hr IV DIRECT RADHA Last Admin: 04/18/19 04:15 Dose: 75 mls/hr Documented by: Insulin Human Lispro (Humalog) 0 unit SUB-Q Q6HR RADHA; Protocol Last Admin: 04/18/19 06:50 Dose: 4 unit Documented by: Ondansetron HCl (Zofran) 4 mg IV Q8H PRN PRN Reason: Nausea And Vomiting Sodium Chloride (Sodium Chloride Flush Syringe 10 Ml) 10 ml IV BID RADHA Sodium Chloride (Sodium Chloride Flush Syringe 10 Ml) 10 ml IV PRN PRN PRN Reason: LINE FLUSH Physical Examination Vital signs: Vital Signs Pulse Pulse Ox 46 L 84 04/17/19 23:40 04/17/19 23:40 Results - Laboratory Findings CBC and BMP: 04/18/19 00:30 04/18/19 00:26 PT/INR, D-dimer PT 17.5 Sec. (12.2-14.9) H 04/18/19 00:26 INR 1.47 (0.87-1.13) H 04/18/19 00:26 Abnormal lab findings: Abnormal Labs 04/18/19 04/18/19 04/18/19 00:26 00:26 00:26 RBC Hgb Hct MCV MCH PT 17.5 H INR 1.47 H Sodium 135 L Potassium 5.5 H D Chloride 96.4 L Carbon Dioxide 20 L D BUN 45 H Creatinine 3.1 H D Glucose 205 H POC Glucose Calcium 7.9 L Magnesium 1.20 L CK-MB (CK-2) Troponin T 0.052 H Total Protein 5.1 L Albumin 3.1 L TSH Salicylates Acetaminophen 04/18/19 04/18/19 04/18/19 00:26 00:26 00:26 RBC Hgb Hct MCV MCH PT INR Sodium Potassium Chloride Carbon Dioxide BUN Creatinine Glucose POC Glucose Calcium Magnesium CK-MB (CK-2) Troponin T Total Protein Albumin TSH 9.560 H Salicylates < 0.3 L Acetaminophen < 5.0 L 04/18/19 04/18/19 04/18/19 00:30 04:31 06:58 RBC 2.52 L Hgb 8.3 L Hct 24.9 L MCV 99 H MCH 33 H PT INR Sodium Potassium Chloride Carbon Dioxide BUN Creatinine Glucose POC Glucose 200 H Calcium Magnesium CK-MB (CK-2) 4.6 H Troponin T 0.042 H Total Protein Albumin TSH Salicylates Acetaminophen
--- NOTE | 2019-04-18 09:27 | Consultation ---
History of Present Illness - Reason for Consult Consult date: 04/18/19 acute renal failure - History of Present Illness 58-year-old male with chronic kidney disease and recent admission for TEGAN, comes emergency room feeling dizzy. In the emergency room he was hypotensive, bradycardic and was started on hydrocortisone and,treated for hyperkalemia, he was also noted to have elevated creatinine and renal consult requested for TEGAN Past History Past Medical History: diabetes, other (A fib) Medications and Allergies Allergies Allergy/AdvReac Type Severity Reaction Status Date / Time No Known Allergies Allergy Unverified 08/21/14 12:00 Home Medications Medication Instructions Recorded Confirmed Last Taken Type ALBUTEROL Inhaler (OR & NICU) 2 puff IH QID PRN 03/29/19 04/18/19 04/17/19 History [ProAir HFA Inhaler] Glimepiride [Amaryl] 2 mg PO BID 03/29/19 04/18/19 04/17/19 History Metformin HCl [metFORMIN] 1,000 mg PO BID 03/29/19 04/18/19 04/17/19 History Pantoprazole [Protonix TAB] 40 mg PO QDAY 03/29/19 04/18/19 04/17/19 History ALBUTEROL NEB's [Proventil 0.083% 2.5 mg IH Q4HRT PRN #60 nebu 04/14/19 04/18/19 04/17/19 Rx NEBS] Apixaban [Eliquis] 5 mg PO BID #60 tablet 04/14/19 04/18/19 04/17/19 Rx AtorvaSTATin [Lipitor] 40 mg PO DAILY #30 tablet 04/14/19 04/18/19 04/16/19 Rx Benzonatate [Tessalon Perles] 100 mg PO Q8HR #14 capsule 04/14/19 04/18/19 04/16/19 Rx FLUoxetine HCL [Prozac] 10 mg PO QDAY #30 capsule 04/14/19 04/18/19 04/17/19 Rx Ipratropium/Albuterol Sulfate 1 ampul IH TIDRT #90 ampul.neb 04/14/19 04/18/19 04/17/19 Rx [DUONEB *Not for PRN Use*] Metoprolol [Lopressor TAB] 50 mg PO BID #60 tablet 04/14/19 04/18/19 04/17/19 Rx QUEtiapine [SEROquel] 25 mg PO BID #60 tablet 04/14/19 04/18/19 04/16/19 Rx Tiotropium [place] [Spiriva 4 gm IH QDAY #1 mist.inhal 04/14/19 04/18/19 04/17/19 Rx Respimat] dilTIAZem CD [Cardizem CD] 300 mg PO QDAY #30 capsule 04/14/19 04/18/19 04/17/19 Rx predniSONE [Deltasone] 10 mg PO QDAY #2 tablet 04/14/19 04/18/19 04/17/19 Rx Active Meds: Active Medications Acetaminophen (Tylenol) 650 mg PO Q4H PRN PRN Reason: Pain MILD(1-3)/Fever >100.5/ARIAS Apixaban (Eliquis) 5 mg PO Q12HR RADHA; Protocol Dextrose (D50w (25gm) Syringe) 50 ml IV PRN PRN PRN Reason: Hypoglycemia Dopamine HCl/Dextrose (Intropin Drip 800 Mg/D5w 250 Ml) 800 mg in 250 mls @ 5.456 mls/hr IV TITR ONE; Protocol Stop: 04/20/19 01:38 Last Titration: 04/18/19 04:15 Dose: 12 mcg/kg/min, 32.738 mls/hr Documented by: Sodium Chloride (Nacl 0.9% 1000 Ml) 1,000 mls @ 75 mls/hr IV DIRECT RADHA Last Admin: 04/18/19 04:15 Dose: 75 mls/hr Documented by: Insulin Human Lispro (Humalog) 0 unit SUB-Q Q6HR RADHA; Protocol Last Admin: 04/18/19 06:50 Dose: 4 unit Documented by: Ondansetron HCl (Zofran) 4 mg IV Q8H PRN PRN Reason: Nausea And Vomiting Sodium Chloride (Sodium Chloride Flush Syringe 10 Ml) 10 ml IV BID RADHA Sodium Chloride (Sodium Chloride Flush Syringe 10 Ml) 10 ml IV PRN PRN PRN Reason: LINE FLUSH Review of Systems All systems: negative (dizziness, weakness) Exam - Vital Signs Vital signs: Vital Signs Pulse Pulse Ox 46 L 84 04/17/19 23:40 09/04/19 23:40 - General Appearance General appearance: well-developed, well-nourished, obese EENT: ATNC, PERRL, mucous membranes dry Neck: Present: neck supple Respiratory: Clear to Ascultation Heart: regular, S1S2 Gastrointestinal: Present: normoactive bowel sounds Integumentary: no rash, warm and dry Neurologic: no focal deficit, no asterixis Musculoskeletal: Present: other (no edema in BLE) Psychiatric: cooperative Results - Lab Results 04/18/19 00:30 04/18/19 00:26 Most recent lab results Calcium 7.9 mg/dL (8.4-10.2) L 04/18/19 00:26 Magnesium 1.20 mg/dL (1.7-2.3) L 04/18/19 00:26 Assessment and Plan Hypotension secondary to bradycardia, on Dopamine Acute renal failure, likely prerenal azotemia but cannot rule ischemic ATN Hyperkalemia status post Kayexelate diabetes A. fib on Eliquis - renal US negative for obstruction - cont IVF NS 75 cc/h, will adjust as needed, CXR is negative for congestion - no indication for WET PRIMER POWDER BLENDER, will monitor closely - will repeat BMP ~ 14:00 - urine diane, UA and urine eos for recent abx use ordered - renally dose meds - strict I&O - daily weight Odin Erazo MD [phone]
--- NOTE | 2019-04-18 09:49 | Consultation ---
History of Present Illness Consult date: 04/18/19 Requesting physician: BLAZE SUE Consult reason: bradycardia, hypotension History of present illness: The pt is a 58 YO male [place] pt with a past medical history of paroxysmal atrial fibrillation, anticoagulated on Eliquis, COPD, sleep apnea (noncompliant with CPAP), ETOH abuse, polysubstance abuse, renal insufficiency, HTN, DM, obesity. He has been seen by our practice on prior hospitalization. He presented with c/o lightheadedness and low BPs at home for 1 day prior to arrival. Pt denies any chest pain, palpitations, n/v, diaphoresis or syncope. Per EMS, the patient was found to be hypotensive and bradycardic in the field. Of note, pt was discharged from [facility] on 04/14/2019 following treatment for parox AFib with RVR, encephalopathy, ETOH withdrawal, ARF. He was discharged home on Cardizem CD 300mg daily, lopressor 50mg BID and Eliquis 5mg BID. Pt states that he did not have his prescriptions filled until 04/16. He took these medications for one day and then noted the development of his symptoms yesterday. Pt denies any ETOH use or illicit drug use. Admission ECG showed AFib with HR 40bpm and repeat ECG overnight showed SB with HR 40bpm. Admission BP was 68/42. Labwork significant for serum Cr 3.1, K+ 5.5, Mg 1.2, TSH 9.5, H/H 8.3/24.9. Pt was initiated on dopamine gtt overnight. On evaluation, pt is in SR with HR 90s and BPs WNL, he remains on dopamine gtt. Pt reports he is feeling much better. Echo done 03/2019: EF 55-60%, abnormal left ventricular diastolic function Past History Past Medical History: atrial fib, COPD, diabetes, hypertension, renal failure Social history: alcohol abuse Medications and Allergies Allergies Allergy/AdvReac Type Severity Reaction Status Date / Time No Known Allergies Allergy Unverified 08/21/14 12:00 Home Medications Medication Instructions Recorded Confirmed Last Taken Type ALBUTEROL Inhaler (OR & NICU) 2 puff IH QID PRN 03/29/19 04/18/19 04/17/19 History [ProAir HFA Inhaler] Glimepiride [Amaryl] 2 mg PO BID 0804/18/19 04/17/19 History Metformin HCl [metFORMIN] 1,000 mg PO BID 03/29/19 04/18/19 04/17/19 History Pantoprazole [Protonix TAB] 40 mg PO QDAY 03/29/19 04/18/19 04/17/19 History ALBUTEROL NEB's [Proventil 0.083% 2.5 mg IH Q4HRT PRN #60 nebu 04/14/19 04/18/19 04/17/19 Rx NEBS] Apixaban [Eliquis] 5 mg PO BID #60 tablet 04/14/19 04/18/19 04/17/19 Rx AtorvaSTATin [Lipitor] 40 mg PO DAILY #30 tablet 04/14/19 04/18/19 04/16/19 Rx Benzonatate [Tessalon Perles] 100 mg PO Q8HR #14 capsule 04/14/19 04/18/19 04/16/19 Rx FLUoxetine HCL [Prozac] 10 mg PO QDAY #30 capsule 04/14/19 04/18/19 04/17/19 Rx Ipratropium/Albuterol Sulfate 1 ampul IH TIDRT #90 ampul.neb 04/14/19 04/18/19 04/17/19 Rx [DUONEB *Not for PRN Use*] Metoprolol [Lopressor TAB] 50 mg PO BID #60 tablet 04/14/19 04/18/19 04/17/19 Rx QUEtiapine [SEROquel] 25 mg PO BID #60 tablet 04/14/19 04/18/19 04/16/19 Rx Tiotropium [place] [Spiriva 4 gm IH QDAY #1 mist.inhal 04/14/19 04/18/19 04/17/19 Rx Respimat] dilTIAZem CD [Cardizem CD] 300 mg PO QDAY #30 capsule 04/14/19 04/18/19 04/17/19 Rx predniSONE [Deltasone] 10 mg PO QDAY #2 tablet 04/14/19 04/18/19 04/17/19 Rx Active Meds: Active Medications Acetaminophen (Tylenol) 650 mg PO Q4H PRN PRN Reason: Pain MILD(1-3)/Fever >100.5/ARIAS Apixaban (Eliquis) 5 mg PO Q12HR RADHA; Protocol Dextrose (D50w (25gm) Syringe) 50 ml IV PRN PRN PRN Reason: Hypoglycemia Dopamine HCl/Dextrose (Intropin Drip 800 Mg/D5w 250 Ml) 800 mg in 250 mls @ 5.456 mls/hr IV TITR ONE; Protocol Stop: 04/20/19 01:38 Last Titration: 04/18/19 04:15 Dose: 12 mcg/kg/min, 32.738 mls/hr Documented by: Sodium Chloride (Nacl 0.9% 1000 Ml) 1,000 mls @ 75 mls/hr IV DIRECT RADHA Last Admin: 04/18/19 04:15 Dose: 75 mls/hr Documented by: Insulin Human Lispro (Humalog) 0 unit SUB-Q Q6HR RADHA; Protocol Last Admin: 04/18/19 06:50 Dose: 4 unit Documented by: Ondansetron HCl (Zofran) 4 mg IV Q8H PRN PRN Reason: Nausea And Vomiting Sodium Chloride (Sodium Chloride Flush Syringe 10 Ml) 10 ml IV BID RADHA Sodium Chloride (Sodium Chloride Flush Syringe 10 Ml) 10 ml IV PRN PRN PRN Reason: LINE FLUSH Review of Systems Constitutional: no weight loss, no weight gain, no fever, no chills, no sweats Ears, nose, mouth and throat: no ear pain, no nose pain, no sinus pressure, no sinus pain Cardiovascular: lightheadedness, no chest pain, no orthopnea, no palpitations, no rapid/irregular heart beat, no edema, no syncope, no shortness of breath, no dyspnea on exertion, no high blood pressure, no leg edema Respiratory: no cough, no shortness of breath, no dyspnea on exertion, no congestion, no wheezing, no pain on inspiration Gastrointestinal: no abdominal pain, no nausea, no vomiting, no diarrhea, no constipation, no change in bowel habits Genitourinary Male: no dysuria, no hematuria, no flank pain, no discharge, no urinary frequency, no urinary hesitancy Musculoskeletal: no neck stiffness, no neck pain, no shooting arm pain, no arm numbness/tingling, no low back pain, no shooting leg pain Integumentary: no rash, no pruritis, no redness, no sores, no wounds Neurological: weakness (generalized), no head injury, no paralysis, no parathesias, no numbness, no tingling, no seizures, no syncope Psychiatric: no anxiety Endocrine: no cold intolerance, no heat intolerance Hematologic/Lymphatic: no easy bruising, no easy bleeding Allergic/Immunologic: no urticaria, no wheezing Physical Examination Vital Signs Pulse Pulse Ox 46 L 84 04/17/19 23:40 04/17/19 23:40 General appearance: no acute distress HEENT: Positive: PERRL, Normocephaly, Mucus Membranes Moist Neck: Positive: neck supple, trachea midline Cardiac: Positive: Reg Rate and Rhythm, S1/S2 Lungs: Positive: Decreased Breath Sounds Neuro: Positive: Grossly Intact Abdomen: Negative: Tender Skin: Negative: Rash Musculoskeletal: No Pain Extremities: Absent: edema Results 04/18/19 00:30 04/18/19 00:26 Cardiac Enzymes 04/18/19 04/18/19 Range/Units 00:26 04:31 AST 30 (5-40) units/L CK-MB (CK-2) 4.6 H (0.0-4.0) ng/mL Coagulation 04/18/19 Range/Units 00:26 PT 17.5 H (12.2-14.9) Sec. INR 1.47 H (0.87-1.13) Lipids 04/18/19 Range/Units 00:26 Triglycerides 95 (2-149) mg/dL Cholesterol 119 (50-199) mg/dL HDL Cholesterol 53 (40-59) mg/dL Cholesterol/HDL Ratio 2.24 % CBC 04/18/19 Range/Units 00:30 WBC 9.6 (4.5-11.0) K/mm3 RBC 2.52 L (3.65-5.03) M/mm3 Hgb 8.3 L (11.8-15.2) gm/dl Hct 24.9 L (35.5-45.6) % Plt Count 177 (140-440) K/mm3 Comprehensive Metabolic Panel 04/18/19 Range/Units 00:26 Sodium 135 L (137-145) mmol/L Potassium 5.5 H D (3.6-5.0) mmol/L Chloride 96.4 L (98-107) mmol/L Carbon Dioxide 20 L D (22-30) mmol/L BUN 45 H (9-20) mg/dL Creatinine 3.1 H D (0.8-1.5) mg/dL Glucose 205 H (75-100) mg/dL Calcium 7.9 L (8.4-10.2) mg/dL AST 30 (5-40) units/L ALT 45 (7-56) units/L Alkaline Phosphatase 101 (35-129) units/L Total Protein 5.1 L (6.3-8.2) g/dL Albumin 3.1 L (3.9-5) g/dL - Imaging and Cardiology Echo: report reviewed (03/2019: EF 55-60%, abnormal left ventricular diastolic function) EKG: report reviewed, image reviewed EKG interpretations - Telemetry EKG Rhythm: Sinus Rhythm - EKG Sinus rhythms and dysrhythmias: sinus bradycardia Assessment and Plan Pt presented with symptomatic sinus bradycardia and parox atrial fibrillation with SVR. Suspect secondary to home medications - Cardizem CD 300mg daily and lopressor 50mg BID. He was initiated on dopamine gtt overnight and currently is in SR with HR 90s and BPs WNL, he remains on dopamine gtt. Wean dopamine gtt off as tolerated and will likely attempt to reintroduce cardizem at low dosage once dopamine gtt is off. Pt may be downgraded to IMCU from CCU. Encourage increased activity and ambulation. Cont Eliquis. INR is noted to be 1.47, LFTs WNL. Will f/u INR in AM. F/u BMP and Mg levels and replete electrolytes PRN. Nephrology recs noted. THS noted to be elevated - further eval/management per primary. Anemia noted. F/u CBC in AM. The patient has been seen in conjunction with Dr. Lawton who agrees with the assessment and plan of care. - Patient Problems (1) Atrial fibrillation with slow ventricular response Current Visit: Yes Status: Acute (2) Symptomatic sinus bradycardia Current Visit: Yes Status: Acute (3) Hypotension Current Visit: Yes Status: Acute (4) Acute renal failure Current Visit: Yes Status: Acute (5) Hyperkalemia Current Visit: Yes Status: Acute (6) Hypomagnesemia Current Visit: Yes Status: Acute (7) COPD (chronic obstructive pulmonary disease) Current Visit: Yes Status: Chronic (8) Sleep apnea Current Visit: Yes Status: Chronic (9) Diabetes Current Visit: Yes Status: Chronic (10) Obesity Current Visit: Yes Status: Chronic (11) History of ETOH abuse Current Visit: Yes Status: Chronic (12) Anemia Current Visit: Yes Status: Acute
[2019-04-18] MEDS ORDERED: PROVENTIL IH PRN ×2 (10:06→10:29)
[2019-04-18] MEDS ORDERED: PROAIR IH PRN (10:06)
[2019-04-18] MEDS: ELIQUIS PO SCH ×2 (10:34→22:02)
[2019-04-18 11:30] LABS: Creatine Kinase MB 4.5 ng/mL (0.0-4.0)
[2019-04-18] MEDS: INTROPIN DRIP 800 MG/D5W 250 ML 800 MG/250 ML BAG IV SCH ×2 (11:30→20:25)
[2019-04-18 12:29] LABS: Calcium 8.6 mg/dL (8.4-10.2)
[2019-04-18] MEDS: PROTONIX PO SCH (13:14)
[2019-04-18] MEDS: SODIUM CHLORIDE FLUSH SYRINGE 10 ML IV SCH ×2 (13:15→22:09)
[2019-04-18] MEDS ORDERED: TESSALON PERLES PO SCH (14:00)
--- NOTE | 2019-04-18 17:52 | Event Note ---
Date: 04/18/19 full GI consult dictated - pt reports known anemia and to have scope at [place] - declines further GI intervention at this time - call if needed
[2019-04-18] MEDS: BROVANA NEBU IH SCH ×2 (18:12→21:01)
[2019-04-18 19:12] LABS: Bilirubin,Urine NEG (Negative); Blood,Urine SM (Negative); Color,Urine Yellow (Yellow); Protein,Urine <15 mg/dL mg/dL (Negative); RBC,Urine < 1.0 /HPF (0.0-6.0); Urobilinogen,Urine < 2.0 mg/dL (<2.0)
[2019-04-18] MEDS: PULMICORT IH SCH (21:01)
[2019-04-18] MEDS ORDERED: MORPHINE IV ONE (21:35)
[2019-04-18] MEDS ORDERED: HEPARIN SUB-Q SCH (22:00)
--- NOTE | 2019-04-18 22:09 | Event Note ---
Date: 04/18/19 Patient seen and examined, mild distress and still requiring dopamin at this time. continue current treatment
[2019-04-19 03:18] LABS: Basophils % (Auto) 0.5 % (0.0-1.8); Eosinophils % (Auto) 0.1 % (0.0-4.3); Hematocrit 27.7 % (35.5-45.6); Lymphocytes # (Auto) 0.5 K/mm3 (1.2-5.4); Lymphocytes % (Auto) 7.2 % (13.4-35.0); Mean Corpuscular HGB Conc 33 % (32-34); Mean Corpuscular Volume 99 fl (84-94); Monocytes # (Auto) 0.2 K/mm3 (0.0-0.8); Monocytes % (Auto) 3.1 % (0.0-7.3); Platelet Count 182 K/mm3 (140-440); Red Cell Distribution Width 15.1 % (13.2-15.2)
[2019-04-19 03:19] LABS: Basophils % (Auto) 0.3 % (0.0-1.8); Eosinophils % (Auto) 0.1 % (0.0-4.3); Hemoglobin 9.1 gm/dl (11.8-15.2); Lymphocytes # (Auto) 0.5 K/mm3 (1.2-5.4); Lymphocytes % (Auto) 7.2 % (13.4-35.0); Mean Corpuscular HGB Conc 32 % (32-34); Mean Corpuscular Volume 99 fl (84-94); Monocytes # (Auto) 0.3 K/mm3 (0.0-0.8); Monocytes % (Auto) 3.7 % (0.0-7.3); Platelet Count 185 K/mm3 (140-440); Red Blood Count 2.84 M/mm3 (3.65-5.03); Red Cell Distribution Width 15.1 % (13.2-15.2)
[2019-04-19 03:29] LABS: INR 1.45 (0.87-1.13)
--- NOTE | 2019-04-19 03:30 | Consultation ---
REFERRING PHYSICIAN: Win Miles M.D. INDICATIONS: 1. Anemia. 2. Possible gastrointestinal bleed. HISTORY OF PRESENT ILLNESS: The patient is a 58-year-old white male with history of hypertension, diabetes, depression, high cholesterol, COPD, AFib, chronic kidney disease as well as obesity. The patient presented and was admitted with dizziness after medication use. The patient reports no obvious signs of GI bleed. He reports no bright red blood per rectum, melena or hematemesis. The patient does report that last colonoscopy was approximately 9 years ago. The patient reports he is followed by [facility] and had been noted to be anemic 4 months and he has been set up for colonoscopy and further evaluation as an outpatient. He denies any other specific GI complaints. PAST MEDICAL HISTORY: 1. Hypertension. 2. Diabetes. 3. Depression. 4. High cholesterol. 5. COPD. 6. AFib. 7. Chronic kidney disease. 8. Obesity. PAST SURGICAL HISTORY: Status post appendectomy. MEDICATIONS: Reviewed and updated in chart. ALLERGIES: No known drug allergies. SOCIAL HISTORY: Denies alcohol, tobacco or IV drug abuse. FAMILY HISTORY: Negative for colon cancer, IBD, or liver disease. REVIEW OF SYSTEMS: GENERAL: Reports mild weakness. HEENT: No visual complaints or tinnitus. PULMONARY: No shortness of breath. No cough. No chest pain. GASTROINTESTINAL: Reports no specific complaints. All points of 13-point review of systems otherwise negative. PHYSICAL EXAMINATION: VITAL SIGNS: Temperature of 98.7, pulse 91, respirations 18, blood pressure 108/60. GENERAL: Fairly obese white male in no acute distress. HEENT: Pupils equal, round and reactive. PULMONARY: Clear to auscultation bilaterally. CARDIOVASCULAR: Normal S1, S2. ABDOMEN: Positive bowel sounds, soft. SKIN: No obvious rashes. LABORATORY DATA: Pertinent for a white count of 9.6, hemoglobin and hematocrit of 8.3 and 24.9, platelet count of 177. Chem-7, sodium of 135, potassium 5.5, chloride 96, CO2 of 20, BUN and creatinine of 45 and 3.1. LFTs within normal limits. ASSESSMENT AND PLAN: A 58-year-old male presents after dizziness and weakness with multiple medical problems, noted to be anemic. The patient reports he noted that he has been anemic for months and he has been set up for colonoscopy and further evaluation at [facility]. At this time, he reports he would rather go back to [facility] and have the evaluation done. PLAN: 1. Follow hematocrit and transfuse as needed. 2. PPI daily. 3. Avoid NSAIDs and aspirin as possible. 4. The patient defers GI evaluation at this time, will follow up with his lint cleaner at [facility] for colonoscopy and other intervention. 5. We will sign off, call if needed. JOB# [id number] CAB/NTS
[2019-04-19 04:16] LABS: Calcium 8.8 mg/dL (8.4-10.2)
--- NOTE | 2019-04-19 04:20 | Consultation ---
PULMONARY CRITICAL CARE CONSULT NOTE CONSULTING PHYSICIAN: Dr. Coy. REASON FOR CONSULTATION: Symptomatic bradycardia, obstructive sleep apnea. CHIEF COMPLAINT AND HISTORY OF PRESENT ILLNESS: The patient is a 58-year-old male with past medical history significant amongst other things for a diagnosis of obstructive sleep apnea. He is morbidly obese. He is supposed to be on home CPAP, but he is noncompliant because of the degree of claustrophobia, came into the Emergency Room because he was feeling weak. Of note, he also has a history of atrial fibrillation for which he is on rate controlling medications. In the ER, he was found to be hypotensive, bradycardic after this was noticed in the field. He was complaining of generalized weakness. Again, he mentions that he is on at least 4 new medications which included Cardizem-CD 300 mg dose, Seroquel 25 mg b.i.d. as well as metoprolol 50 mg b.i.d. He stated he had been taking them as prescribed. He did not overdose. He did not intentionally try to kill himself. He admits also to me to a history of tobacco use 30+ pack year tobacco smoking history and continued to smoke. He denied any significant bleeding. He denied any hematochezia. Denied hematemesis, denied hemoptysis, denied hematuria. In the Emergency Room, again was found to be bradycardic. He required institution of dopamine drip. He was brought up to the Intensive Care Unit where I stopped by to examine him. When I stopped by to see him, he was resting in bed, falling back to sleep after a couple of sentences at a time. He complained of some epigastric/right upper quadrant pain. Denied nausea, vomiting. Denied any sick contacts at home. Denies any new onset leg pain or swelling either unilaterally or bilaterally, but admits to chronic lower extremity edema. This really is as much of the history of presentation as I have. PAST MEDICAL HISTORY: Again significant for hypertension, diabetes, COPD, atrial fibrillation, hyperlipidemia, obstructive sleep apnea, morbid obesity. PAST SURGICAL HISTORY: He has had shoulder, elbow and foot surgery done in the past. He has also had an appendectomy done. MEDICATIONS: He was on at the time I stopped by to see him were reviewed. Pertinent medications included the following: He was on a dopamine drip going at 14 mcg per kilogram per minute, Tylenol 650 mg p.o. q.4 hours p.r.n. mild pain or fevers, p.r.n. albuterol 2.5 mg nebulized q.4 hours for shortness of breath, Eliquis 5 mg p.o. q.12 hours, Lipitor 40 mg p.o. daily, Tessalon Perles 100 mg p.o. q.8 scheduled, Prozac 10 mg p.o. daily, insulin via sliding scale, Zofran 4 mg IV q.8 hours p.r.n. nausea and vomiting, prednisone 10 mg p.o. daily, Seroquel 25 mg p.o. b.i.d. ALLERGIES: No known drug allergies. DIET: Morbidly obese. Denies acute weight loss or gain in the preceding few weeks to months. FAMILY AND SOCIAL HISTORY: Lives in the community. He has a 30+ pack year tobacco smoking history. He does drink alcohol, but denies a history of withdrawal symptoms or alcohol abuse. FAMILY HISTORY: Otherwise noncontributory. REVIEW OF SYSTEMS: No loss of consciousness. No new onset seizures. No new onset focal weakness. He did have the generalized weakness. Denies any new onset focal weakness. He denies any new onset rash. He denies any known insect bites. He denies heat or cold intolerance. He denies polydipsia or polyphagia. Complete 13-system review of systems obtained. Pertinent positives and/or negative as in body of history above, otherwise they are noncontributory. PHYSICAL EXAMINATION: VITAL SIGNS: At presentation, he was afebrile. Temperature 96.6 degrees Fahrenheit, pulse of 46, respiratory rate of 14, blood pressure was 68/42, O2 sats were 80%, inspired oxygen concentration at that time was not recorded. When I saw him, O2 sats were 88% that was on 4 liters nasal cannula. HEAD, EYES, EARS, NOSE AND THROAT: He is anicteric. No conjunctival erythema. Oropharynx is moist. Mallampati #4 oropharynx. No gross jugular venous distention. He has a large neck circumference. Grossly, no palpable lymph nodes in the supraclavicular or submandibular lymph node chains. LUNGS: Auscultation of both lung matos revealed bibasilar diminished breath sounds as well as bibasilar inspiratory rales in the bases. No wheezing. HEART: Heart sounds 1 and 2 are heard at the time of my evaluation, regular rate and rhythm, without overt rubs or murmurs, going at about 70 beats per minute. ABDOMEN: Soft, full. Mild epigastric tenderness. No palpable hepatosplenomegaly. EXTREMITIES: With 2+ bilateral pedal edema. No digital clubbing or cyanosis. Pedal pulses were palpable and strong bilaterally. NEUROLOGIC: Pupils are equal, round, about 3 mm, reactive to light. Extraocular muscle movements were intact. He moved all 4 extremities spontaneously. He was showing signs of excessive daytime sleepiness, falling asleep during conversation. SKIN: Normal turgor, without overt cellulitis or rash in the areas observed which did not include the sacral area. RECTAL: Deferred. LABORATORY DATA: From my review are as follows: White cell count 9600, hemoglobin 8.3, hematocrit 24.9, platelet count 177, MCV was elevated at 99. INR 1.47. Serum sodium 135, potassium 5.5, chloride 96, bicarbonate 20, BUN 45, creatinine 3.1, glucose was 205. Lactic acid level was within normal limits. Magnesium was low at 1.2. Liver function test within normal limits. Troponin was up at 0.052. Albumin 3.1. TSH was significantly elevated at 9.56. However, free T4 was within normal range. Tylenol, aspirin and alcohol levels were nondetectable or within expected range. I should say blood cultures 2 sets were drawn, no growth to date. Stool was sent for occult blood and is positive for occult blood. I have reviewed the chest x-ray. I have also reviewed the radiologist's interpretation. I agree no acute findings. There is definitely flattening of both hemidiaphragms consistent with an element of hyperinflation/COPD. I should say he does have cardiomegaly. Soft tissue shadows probably accentuate the blunting of the costophrenic angles, but I cannot rule out small pleural effusions. No gross pneumothorax, no gross bony fractures that I can tell. ASSESSMENT: 1. Symptomatic bradycardia. 2. Obstructive sleep apnea, untreated. 3. Morbid obesity. 4. History of atrial fibrillation but with a slow ventricular response. 5. Tobacco use disorder. 6. Cardiomyopathy. 7. Acute hypoxemic respiratory failure. 8. Hyperkalemia. 9. Mild metabolic acidosis. 10. Elevated serum troponins. 11. History of diabetes. 12. Acute chronic obstructive pulmonary disease exacerbation. 13. Hyperlipidemia. 14. Hypotension PLAN: I do feel that the bradycardia is secondary in particular to perhaps an iatrogenic component from his rate control medications; however, the bradycardia is also worsened in sleep by his untreated obstructive sleep apnea. The plan will be as follows: We will keep him on the dopamine drip for now and continue to wean dopamine as long as mean arterial pressures are greater than or equal to 65 mmHg and also hopefully the pulse is greater than 60. Cardiology evaluation is ongoing. I do feel that once the effect of extended release medications wear out, his pulse rate should be better and we can adjust his rate control medications. Tobacco abstinence has been strongly counseled. A stat arterial blood gas will be ordered and addressed. In the meantime, I have advised him he will be on a periodic bilevel positive airway pressure ventilation therapy during the day to aid ventilation and he has to use it scheduled at night. He agrees with me anyway that he will wear the machine. Glycemic control will be continued via sliding scale. Oxygen will be weaned to keep sats greater than or equal to about 90%. Aspiration precautions will be maintained. We will try and review his home medications to see what his chronic COPD control medications are. I note that he is on prednisone. I will go ahead and start him on long-acting bronchodilators as well as inhaled corticosteroids and see if we can taper the prednisone dose to try and improve his weight control and glycemic control. I will change the Tessalon Perles to p.r.n. rather than scheduled medication. He will continue on the Eliquis for his atrial fibrillation. I will put him on GI prophylaxis with Pepcid. GI evaluation will be ordered because of the anemia and the positive stool guaiac. Hyperkalemia, I believe is likely at least partially secondary to his acidosis and has been addressed in the Emergency Room. He received some Kayexalate 15 grams as well as sodium bicarbonate. Flu and pneumonia vaccination will be addressed per protocol. Thank you very much for the consult, Dr. Coy. We will follow along. We will make further recommendations as picture progresses/becomes clearer. He is critically ill on life-sustaining interventions including the dopamine at high risk of decompensation including the risk of . At this time, I spent about 40 minutes of critical care time without overlap and excluding any procedural time that may be necessary. JOB# [id number] KIM/MARLO HARO
[2019-04-19 06:26] LABS: Calcium 8.4 mg/dL (8.4-10.2)
[2019-04-19] MEDS: MORPHINE IV PRN (08:10)
[2019-04-19] MEDS: HumaLOG SUB-Q SCH ×4 (08:11→22:19)
--- NOTE | 2019-04-19 09:11 | XRay Report ---
RIGHT ANKLE, 3 VIEWS INDICATION: right ankle pain and swollen, s/p fall. COMPARISON: None. IMPRESSION: There is moderate to severe diffuse subcutaneous edema or swelling. Normal bone mineral ization. No acute osseous findings or joint pathology is identified. Signer Name: Alonzo Dawson Jr, MD Signed: 04/19/2019 9:06 AM Workstation Name: [id number]
[2019-04-19] MEDS ORDERED: DELTASONE PO SCH (10:00)
[2019-04-19] MEDS: BROVANA NEBU IH SCH ×2 (10:10→20:36)
[2019-04-19] MEDS: PULMICORT IH SCH ×2 (10:11→20:36)
--- NOTE | 2019-04-19 10:20 | Progress Note ---
Assessment and Plan Hypotension secondary to bradycardia, on Dopamine Acute renal failure, likely prerenal azotemia but cannot rule ischemic ATN Hyperkalemia status post Kayexelate diabetes A. 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[employer], will monitor closely - renally dose meds - strict I&O - daily weight Odin Erazo MD [phone] Subjective Date of service: 04/19/19 Principal diagnosis: hyotension and bradycardia Interval history: feels better today Objective - Vital Signs Vital signs: Vital Signs - 12hr 04/18/19 04/18/19 04/18/19 22:20 22:30 22:31 Pulse Rate 107 H 110 H Pulse Rate [ Anterior Bilateral Throughout] Respiratory 21 24 22 Rate Respiratory Rate [Anterior Bilateral Throughout] Blood Pressure 110/74 97/79 O2 Sat by Pulse 97 97 Oximetry 04/18/19 04/18/19 04/18/19 22:40 22:50 23:00 Pulse Rate 105 H 118 H 110 H Pulse Rate [ Anterior Bilateral Throughout] Respiratory 21 16 22 Rate Respiratory Rate [Anterior Bilateral Throughout] Blood Pressure 97/79 106/81 106/81 O2 Sat by Pulse 97 97 97 Oximetry 04/18/19 04/18/19 04/18/19 23:10 23:20 23:30 Pulse Rate 99 H 120 H 111 H Pulse Rate [ Anterior Bilateral Throughout] Respiratory 23 23 18 Rate Respiratory Rate [Anterior Bilateral Throughout] Blood Pressure 126/63 118/70 112/72 O2 Sat by Pulse 98 99 97 Oximetry 04/18/19 04/18/19 04/18/19 23:39 23:40 23:50 Pulse Rate 114 H 107 H 110 H Pulse Rate [ Anterior Bilateral Throughout] Respiratory 19 21 20 Rate Respiratory Rate [Anterior Bilateral Throughout] Blood Pressure 112/72 112/72 118/70 O2 Sat by Pulse 99 100 99 Oximetry 04/19/19 04/19/19 04/19/19 00:00 00:10 00:20 Pulse Rate 87 94 H 95 H Pulse Rate [ Anterior Bilateral Throughout] Respiratory 14 19 15 Rate Respiratory Rate [Anterior Bilateral Throughout] Blood Pressure 118/70 114/80 106/74 O2 Sat by Pulse 99 90 88 Oximetry 04/19/19 04/19/19 04/19/19 00:30 00:40 00:50 Pulse Rate 103 H 99 H 122 H Pulse Rate [ Anterior Bilateral Throughout] Respiratory 14 19 23 Rate Respiratory Rate [Anterior Bilateral Throughout] Blood Pressure 106/74 110/72 106/74 O2 Sat by Pulse 77 L 79 L 89 Oximetry 04/19/19 04/19/19 04/19/19 01:00 01:10 01:20 Pulse Rate 113 H 110 H 123 H Pulse Rate [ Anterior Bilateral Throughout] Respiratory 23 20 29 H Rate Respiratory Rate [Anterior Bilateral Throughout] Blood Pressure 114/79 114/79 126/78 O2 Sat by Pulse 96 87 Oximetry 04/19/19 04/19/19 04/19/19 01:25 01:30 01:40 Pulse Rate 97 H 102 H 101 H Pulse Rate [ Anterior Bilateral Throughout] Respiratory 20 18 19 Rate Respiratory Rate [Anterior Bilateral Throughout] Blood Pressure 121/73 121/73 O2 Sat by Pulse 95 98 Oximetry 04/19/19 04/19/19 04/19/19 01:50 02:00 02:10 Pulse Rate 98 H 101 H 97 H Pulse Rate [ Anterior Bilateral Throughout] Respiratory 16 14 13 Rate Respiratory Rate [Anterior Bilateral Throughout] Blood Pressure 122/72 111/72 111/72 O2 Sat by Pulse 94 Oximetry 04/19/19 04/19/19 04/19/19 02:20 02:30 02:40 Pulse Rate 94 H 87 91 H Pulse Rate [ Anterior Bilateral Throughout] Respiratory 14 16 16 Rate Respiratory Rate [Anterior Bilateral Throughout] Blood Pressure 105/78 113/76 113/76 O2 Sat by Pulse 93 Oximetry 04/19/19 04/19/19 04/19/19 02:50 03:00 03:10 Pulse Rate 104 H 127 H 121 H Pulse Rate [ Anterior Bilateral Throughout] Respiratory 24 22 18 Rate Respiratory Rate [Anterior Bilateral Throughout] Blood Pressure 113/76 113/76 113/69 O2 Sat by Pulse 84 Oximetry 04/19/19 04/19/19 04/19/19 03:22 03:30 03:40 Pulse Rate 94 H 86 94 H Pulse Rate [ Anterior Bilateral Throughout] Respiratory 23 19 22 Rate Respiratory Rate [Anterior Bilateral Throughout] Blood Pressure 110/71 110/71 O2 Sat by Pulse 81 L Oximetry 04/19/19 04/19/19 04/19/19 03:50 04:00 04:10 Pulse Rate 96 H 90 80 Pulse Rate [ Anterior Bilateral Throughout] Respiratory 22 16 19 Rate Respiratory Rate [Anterior Bilateral Throughout] Blood Pressure 109/68 108/65 108/65 O2 Sat by Pulse 89 80 L 79 L Oximetry 04/19/19 04/19/19 04/19/19 04:20 04:30 04:40 Pulse Rate 109 H 92 H 98 H Pulse Rate [ Anterior Bilateral Throughout] Respiratory 24 26 H 22 Rate Respiratory Rate [Anterior Bilateral Throughout] Blood Pressure 113/57 114/69 114/69 O2 Sat by Pulse 91 Oximetry 04/19/19 04/19/19 04/19/19 04:50 05:00 05:10 Pulse Rate 82 88 89 Pulse Rate [ Anterior Bilateral Throughout] Respiratory 23 24 21 Rate Respiratory Rate [Anterior Bilateral Throughout] Blood Pressure 115/73 120/72 120/72 O2 Sat by Pulse 92 79 L Oximetry 04/19/19 04/19/19 04/19/19 05:20 05:30 05:40 Pulse Rate 105 H 82 95 H Pulse Rate [ Anterior Bilateral Throughout] Respiratory 22 20 23 Rate Respiratory Rate [Anterior Bilateral Throughout] Blood Pressure 110/67 106/67 106/67 O2 Sat by Pulse 79 L Oximetry 04/19/19 04/19/19 04/19/19 05:50 06:00 06:10 Pulse Rate 91 H 99 H 93 H Pulse Rate [ Anterior Bilateral Throughout] Respiratory 15 24 16 Rate Respiratory Rate [Anterior Bilateral Throughout] Blood Pressure 101/62 99/66 99/66 O2 Sat by Pulse 86 83 L Oximetry 04/19/19 04/19/19 06:20 10:00 Pulse Rate 85 Pulse Rate [ 118 H Anterior Bilateral Throughout] Respiratory 22 Rate Respiratory 20 Rate [Anterior Bilateral Throughout] Blood Pressure 110/66 O2 Sat by Pulse 93 Oximetry - General Appearance General appearance: well-developed, well-nourished, appears stated age EENT: ATNC, PERRL, mucous membranes moist Neck: no JVD, no carotid bruit Respiratory: Present: Clear to Ascultation Cardiology: regular, S1S2 Gastrointestinal: normoactive bowel sounds, obese Integumentary: no rash, warm and dry Neurologic: no focal deficit, no asterixis, alert and oriented x3 Musculoskeletal: deferred (1+ pitting edema in BLE) Psychiatric: mood/affect appropriate, cooperative - Lab 04/19/19 02:50 04/19/19 Unknown Most recent lab results Calcium 8.4 mg/dL (8.4-10.2) 04/19/19 Unknown Magnesium 1.80 mg/dL (1.7-2.3) 04/19/19 02:50 35 mmol/L 04/18/19 09:24 Medications & Allergies - Medications Allergies/Adverse Reactions: Allergies No Known Allergies Allergy (Unverified 08/21/14 12:00) Home Medications: Home Medications Medication Instructions Recorded Confirmed Last Taken Type ALBUTEROL Inhaler (OR & NICU) 2 puff IH QID PRN 03/29/19 04/18/19 04/17/19 History [ProAir HFA Inhaler] Glimepiride [Amaryl] 2 mg PO BID 03/29/19 04/18/19 04/17/19 History Metformin HCl [metFORMIN] 1,000 mg PO BID 03/29/19 04/18/19 04/17/19 History Pantoprazole [Protonix TAB] 40 mg PO QDAY 03/29/19 04/18/19 04/17/19 History ALBUTEROL NEB's [Proventil 0.083% 2.5 mg IH Q4HRT PRN #60 nebu 04/14/19 04/18/19 04/17/19 Rx NEBS] Apixaban [Eliquis] 5 mg PO BID #60 tablet 04/14/19 04/18/19 04/17/19 Rx AtorvaSTATin [Lipitor] 40 mg PO DAILY #30 tablet 04/14/19 04/18/19 04/16/19 Rx Benzonatate [Tessalon Perles] 100 mg PO Q8HR #14 capsule 04/14/19 04/18/19 04/16/19 Rx FLUoxetine HCL [Prozac] 10 mg PO QDAY #30 capsule 04/14/19 04/18/19 04/17/19 Rx Ipratropium/Albuterol Sulfate 1 ampul IH TIDRT #90 ampul.neb 04/14/19 04/18/19 04/17/19 Rx [DUONEB *Not for PRN Use*] Metoprolol [Lopressor TAB] 50 mg PO BID #60 tablet 04/14/19 04/18/19 04/17/19 Rx QUEtiapine [SEROquel] 25 mg PO BID #60 tablet 09/09/0104/18/19 04/16/19 Rx Tiotropium [employer] [Spiriva 4 gm IH QDAY #1 mist.inhal 04/14/19 04/18/19 04/17/19 Rx Respimat] dilTIAZem CD [Cardizem CD] 300 mg PO QDAY #30 capsule 04/14/19 04/18/19 04/17/19 Rx predniSONE [Deltasone] 10 mg PO QDAY #2 tablet 04/14/19 04/18/19 04/17/19 Rx Active Medications: Generic Name Dose Route Start Last Admin Trade Name Freq PRN Reason Stop Dose Admin Acetaminophen 650 mg 04/18/19 04:12 Tylenol PO Q4H PRN Pain MILD(1-3)/Fever >100.5/ARIAS Albuterol 2.5 mg 04/18/19 10:06 Proventil IH Q4HRT PRN Shortness Of Breath Apixaban 5 mg 04/18/19 10:00 04/18/19 22:02 Eliquis PO 5 mg Q12HR RADHA Administration Protocol Arformoterol Tartrate 15 mcg 04/18/19 12:30 04/19/19 10:10 Brovana Nebu IH 15 mcg Q12HRT RADHA Administration Atorvastatin Calcium 40 mg 04/19/19 10:00 Lipitor PO DAILY RADHA Benzonatate 100 mg 04/18/19 14:00 Tessalon Perles PO Q8HR PRN Cough Budesonide 0.5 mg 04/18/19 20:00 04/19/19 10:11 Pulmicort IH 0.5 mg Q12HRT RADHA Administration Dextrose 50 ml 04/18/19 04:21 D50w (25gm) Syringe IV PRN PRN Hypoglycemia Fluoxetine HCl 10 mg 04/19/19 10:00 Prozac PO QDAY RADHA Hydrocortisone Sodium Succinate 100 mg 04/18/19 14:00 04/19/19 05:59 Solu-Cortef IV 100 mg Q8HR RADHA Administration Dopamine HCl/Dextrose 800 mg in 250 mls @ 5.456 mls/hr 04/18/19 12:00 04/19/19 06:00 Intropin Drip 800 Mg/D5w 250 Ml IV Infused TITR RADHA Titration Protocol 2 MCG/KG/MIN Insulin Human Lispro 0 unit 04/18/19 22:00 04/19/19 08:11 Humalog SUB-Q 4 unit ACHS RADHA Administration Protocol Morphine Sulfate 2 mg 04/18/19 22:27 04/19/19 08:10 Morphine IV 2 mg Q4H PRN Administration Pain, Moderate (4-6) Ondansetron HCl 4 mg 04/18/19 04:12 Zofran IV Q8H PRN Nausea And Vomiting Pantoprazole Sodium 40 mg 04/18/19 13:00 04/18/19 13:14 Protonix PO 40 mg QDAY RADHA Administration Quetiapine Fumarate 25 mg 04/18/19 22:00 04/18/19 22:02 Seroquel PO 25 mg BID RADHA Administration Sodium Chloride 10 ml 04/18/19 10:00 04/18/19 22:09 Sodium Chloride Flush Syringe 10 Ml IV 10 ml BID RADHA Administration Sodium Chloride 10 ml 04/18/19 04:12 Sodium Chloride Flush Syringe 10 Ml IV PRN PRN LINE FLUSH
--- NOTE | 2019-04-19 10:55 | Progress Note ---
Assessment and Plan Symptomatic bradycardia. Obstructive sleep apnea, untreated. Morbid obesity. History of atrial fibrillation but with a slow ventricular response. Tobacco use disorder. Cardiomyopathy. Acute hypoxemic respiratory failure. Hyperkalemia. Mild metabolic acidosis. Elevated serum troponins. History of diabetes. Acute chronic obstructive pulmonary disease exacerbation. Hyperlipidemia. Hypotension - begin neosynephrine (re: tachycardia) - target MAP >/= 65 mmHg - continue stress dose steroids with slow taper (he was on chronic prednisone therapy) - A-fib per cardiology - begin metoprolol 5 mg I.V. q6h prn pulse > 130/min - repeat ABG and address - again encouraged BIPAP use - again stressed tobacco abstinence - GI & VTE prophylaxis - continue bronchodilators (LABS & KELECHI) with pulmonary hygiene per RT - supplemental O2 as needed to keep O2 sats > 90% - continue accuchecks with glycemic control per SSI for target blood glucose 140-180 mg/dL - continue empiric antibiotics; de-escalate per ID rec's and based on clinical and microbiologic data - continue mobility protocols / off loading for pressure ulcer prevention - Critical care bundles addressed - fall precautions - continue other care per attending / other consultants CONDITION: CRITICAL PROGNOSIS: GUARDED TO GRAVE CODE STATUS: FULL CODE The high probability of a clinically significant, sudden or life threatening deterioration of the [Neurology Respiratory, Cardiovascular] system(s) required my full and direct attention, intervention and personal management. The aggregate critical care time was [32] minutes. This time is in addition to time spent performing reported procedures but includes the following: [x] Data Review and interpretation [x] Patient assessment and monitoring of vital signs [x] Documentation Subjective Date of service: 04/19/19 Principal diagnosis: Symptomatic bradycardia; Hypotension; HUMA; A-Fib with RVR; AE-COPD Interval history: Patient is seen today for: Symptomatic bradycardia; Hypotension; Obstructive sleep apnea, untreated; Morbid obesity; Atrial fibrillation with RVR; Tobacco use disorder; Cardiomyopathy; Acute hypoxemic respiratory failure; History of diabetes; Acute chronic obstructive pulmonary disease exacerbation Seen and examined at bedside; 24hour events reviewed; nursing and respiratory care staff consulted; no adverse overnight events reported to me; remains with intermittent hypotension; refusing BIPAP; denies acute chest pains or palpitations; NO N/V/F/C; bradycardia is better and now with tachycardia; No new issues otherwise Objective Vital Signs - 12hr 04/18/19 04/18/19 04/18/19 23:00 23:10 23:20 Pulse Rate 110 H 99 H 120 H Pulse Rate [ Anterior Bilateral Throughout] Respiratory 22 23 23 Rate Respiratory Rate [Anterior Bilateral Throughout] Blood Pressure 106/81 126/63 118/70 O2 Sat by Pulse 97 98 99 Oximetry 04/18/19 04/18/19 04/18/19 23:30 23:39 23:40 Pulse Rate 111 H 114 H 107 H Pulse Rate [ Anterior Bilateral Throughout] Respiratory 18 19 21 Rate Respiratory Rate [Anterior Bilateral Throughout] Blood Pressure 112/72 112/72 112/72 O2 Sat by Pulse 97 99 100 Oximetry 04/18/19 04/19/19 04/19/19 23:50 00:00 00:10 Pulse Rate 110 H 87 94 H Pulse Rate [ Anterior Bilateral Throughout] Respiratory 20 14 19 Rate Respiratory Rate [Anterior Bilateral Throughout] Blood Pressure 118/70 118/70 114/80 O2 Sat by Pulse 99 99 90 Oximetry 04/19/19 04/19/19 04/19/19 00:20 00:30 00:40 Pulse Rate 95 H 103 H 99 H Pulse Rate [ Anterior Bilateral Throughout] Respiratory 15 14 19 Rate Respiratory Rate [Anterior Bilateral Throughout] Blood Pressure 106/74 106/74 110/72 O2 Sat by Pulse 88 77 L 79 L Oximetry 04/19/19 04/19/19 04/19/19 00:50 01:00 01:10 Pulse Rate 122 H 113 H 110 H Pulse Rate [ Anterior Bilateral Throughout] Respiratory 23 23 20 Rate Respiratory Rate [Anterior Bilateral Throughout] Blood Pressure 106/74 114/79 114/79 O2 Sat by Pulse 89 96 Oximetry 04/19/19 04/19/19 04/19/19 01:20 01:25 01:30 Pulse Rate 123 H 97 H 102 H Pulse Rate [ Anterior Bilateral Throughout] Respiratory 29 H 20 18 Rate Respiratory Rate [Anterior Bilateral Throughout] Blood Pressure 126/78 121/73 O2 Sat by Pulse 87 95 98 Oximetry 04/19/19 04/19/19 04/19/19 01:40 01:50 02:00 Pulse Rate 101 H 98 H 101 H Pulse Rate [ Anterior Bilateral Throughout] Respiratory 19 16 14 Rate Respiratory Rate [Anterior Bilateral Throughout] Blood Pressure 121/73 122/72 111/72 O2 Sat by Pulse 94 Oximetry 0904/19/19 04/19/19 02:10 02:20 02:30 Pulse Rate 97 H 94 H 87 Pulse Rate [ Anterior Bilateral Throughout] Respiratory 13 14 16 Rate Respiratory Rate [Anterior Bilateral Throughout] Blood Pressure 111/72 105/78 113/76 O2 Sat by Pulse 93 Oximetry 04/19/19 04/19/19 04/19/19 02:40 02:50 03:00 Pulse Rate 91 H 104 H 127 H Pulse Rate [ Anterior Bilateral Throughout] Respiratory 16 24 22 Rate Respiratory Rate [Anterior Bilateral Throughout] Blood Pressure 113/76 113/76 113/76 O2 Sat by Pulse 84 Oximetry 04/19/19 04/19/19 04/19/19 03:10 03:22 03:30 Pulse Rate 121 H 94 H 86 Pulse Rate [ Anterior Bilateral Throughout] Respiratory 18 23 19 Rate Respiratory Rate [Anterior Bilateral Throughout] Blood Pressure 113/69 110/71 O2 Sat by Pulse 81 L Oximetry 04/19/19 04/19/19 04/19/19 03:40 03:50 04:00 Pulse Rate 94 H 96 H 90 Pulse Rate [ Anterior Bilateral Throughout] Respiratory 22 22 16 Rate Respiratory Rate [Anterior Bilateral Throughout] Blood Pressure 110/71 109/68 108/65 O2 Sat by Pulse 89 80 L Oximetry 04/19/19 04/19/19 04/19/19 04:10 04:20 04:30 Pulse Rate 80 109 H 92 H Pulse Rate [ Anterior Bilateral Throughout] Respiratory 19 24 26 H Rate Respiratory Rate [Anterior Bilateral Throughout] Blood Pressure 108/65 113/57 114/69 O2 Sat by Pulse 79 L 91 Oximetry 04/19/19 04/19/19 04/19/19 04:40 04:50 05:00 Pulse Rate 98 H 82 88 Pulse Rate [ Anterior Bilateral Throughout] Respiratory 22 23 24 Rate Respiratory Rate [Anterior Bilateral Throughout] Blood Pressure 114/69 115/73 120/72 O2 Sat by Pulse 92 Oximetry 04/19/19 04/19/19 04/19/19 05:10 05:20 05:30 Pulse Rate 89 105 H 82 Pulse Rate [ Anterior Bilateral Throughout] Respiratory 21 22 20 Rate Respiratory Rate [Anterior Bilateral Throughout] Blood Pressure 120/72 110/67 106/67 O2 Sat by Pulse 79 L Oximetry 04/19/19 04/19/19 04/19/19 05:40 05:50 06:00 Pulse Rate 95 H 91 H 99 H Pulse Rate [ Anterior Bilateral Throughout] Respiratory 23 15 24 Rate Respiratory Rate [Anterior Bilateral Throughout] Blood Pressure 106/67 101/62 99/66 O2 Sat by Pulse 79 L 86 83 L Oximetry 04/19/19 04/19/19 04/19/19 06:10 06:20 10:00 Pulse Rate 93 H 85 Pulse Rate [ 118 H Anterior Bilateral Throughout] Respiratory 16 22 Rate Respiratory 20 Rate [Anterior Bilateral Throughout] Blood Pressure 99/66 110/66 O2 Sat by Pulse 93 Oximetry Constitutional: no acute distress, alert, other (Middle aged morbidly obese CM, normocephalic abd atraumatic) Eyes: non-icteric ENT: oropharynx moist, other (mallampati 4) Neck: supple, no lymphadenopathy, no JVD, other (large neck circumference) Effort: mildly labored Ascultation: Bilateral: clear, diminished breath sounds Percussion: Bilateral: not dull Cardiovascular: irregular rhythm, other (No R/M) Gastrointestinal: normoactive bowel sounds, soft, non-tender, other (protuberant) Integumentary: normal Extremities: no cyanosis, pink and warm, pulses normal, no ischemia or petechiae, edema Neurologic: normal mental status, non-focal exam, pupils equal and round, motor strength normal and Psychiatric: mood appropriate, affect normal CBC and BMP: 04/20/19 Unknown 04/20/19 Unknown ABG, PT/INR, D-dimer: ABG POC ABG pH 7.250 (7.35-7.45) L 04/18/19 11:00 POC ABG pCO2 53.7 (35-45) H 04/18/19 11:00 POC ABG pO2 65 (80-105) L 04/18/19 11:00 POC ABG HCO3 23.6 (22-26 mml/L) 04/18/19 11:00 POC ABG Total CO2 25 (23-27mmol/L) 04/18/19 11:00 POC ABG O2 Sat 88 04/18/19 11:00 PT/INR, D-dimer PT 17.3 Sec. (12.2-14.9) H 04/19/19 02:50 INR 1.45 (0.87-1.13) H 04/19/19 02:50 Abnormal lab findings: Abnormal Labs 04/18/19 04/18/19 04/18/19 00:26 00:26 00:26 RBC Hgb Hct MCV MCH Lymph % (Auto) Lymph # Seg Neutrophils % PT 17.5 H INR 1.47 H POC ABG pH POC ABG pCO2 POC ABG pO2 Sodium 135 L Potassium 5.5 H D Chloride 96.4 L Carbon Dioxide 20 L D BUN 45 H Creatinine 3.1 H D Glucose 205 H POC Glucose Calcium 7.9 L Magnesium 1.20 L CK-MB (CK-2) Troponin T 0.052 H C-Reactive Protein Total Protein 5.1 L Albumin 3.1 L TSH Salicylates Acetaminophen 04/18/19 04/18/19 04/18/19 00:26 00:26 00:26 RBC Hgb Hct MCV MCH Lymph % (Auto) Lymph # Seg Neutrophils % PT INR POC ABG pH POC ABG pCO2 POC ABG pO2 Sodium Potassium Chloride Carbon Dioxide BUN Creatinine Glucose POC Glucose Calcium Magnesium CK-MB (CK-2) Troponin T C-Reactive Protein Total Protein Albumin TSH 9.560 H Salicylates < 0.3 L Acetaminophen < 5.0 L 04/18/19 04/18/19 04/18/19 00:30 04:31 06:58 RBC 2.52 L Hgb 8.3 L Hct 24.9 L MCV 99 H MCH 33 H Lymph % (Auto) Lymph # Seg Neutrophils % PT INR POC ABG pH POC ABG pCO2 POC ABG pO2 Sodium Potassium Chloride Carbon Dioxide BUN Creatinine Glucose POC Glucose 200 H Calcium Magnesium CK-MB (CK-2) 4.6 H Troponin T 0.042 H C-Reactive Protein Total Protein Albumin TSH Salicylates Acetaminophen 04/18/19 04/18/19 04/18/19 09:27 10:16 11:00 RBC Hgb Hct MCV MCH Lymph % (Auto) Lymph # Seg Neutrophils % PT INR POC ABG pH 7.250 L POC ABG pCO2 53.7 H POC ABG pO2 65 L Sodium Potassium Chloride Carbon Dioxide BUN Creatinine Glucose POC Glucose 205 H Calcium Magnesium CK-MB (CK-2) 4.5 H Troponin T 0.032 H D C-Reactive Protein Total Protein Albumin TSH Salicylates Acetaminophen 04/18/19 04/18/19 04/18/19 12:05 12:05 12:12 RBC Hgb Hct MCV MCH Lymph % (Auto) Lymph # Seg Neutrophils % PT INR POC ABG pH POC ABG pCO2 POC ABG pO2 Sodium 134 L Potassium 5.3 H Chloride 96.3 L Carbon Dioxide BUN 48 H Creatinine 3.1 H Glucose 210 H POC Glucose 209 H Calcium Magnesium 1.40 L CK-MB (CK-2) Troponin T C-Reactive Protein 1.50 H Total Protein Albumin TSH Salicylates Acetaminophen 04/18/19 04/18/19 04/19/19 17:49 21:52 02:50 RBC 2.84 L Hgb 9.1 L Hct 28.0 L MCV 99 H MCH Lymph % (Auto) 7.2 L Lymph # 0.5 L Seg Neutrophils % 88.7 H PT INR POC ABG pH POC ABG pCO2 POC ABG pO2 Sodium Potassium Chloride Carbon Dioxide BUN Creatinine Glucose POC Glucose 189 H 314 H Calcium Magnesium CK-MB (CK-2) Troponin T C-Reactive Protein Total Protein Albumin TSH Salicylates Acetaminophen 04/19/19 04/19/19 04/19/19 02:50 02:50 02:50 RBC 2.80 L Hgb 9.0 L Hct 27.7 L MCV 99 H MCH Lymph % (Auto) 7.2 L Lymph # 0.5 L Seg Neutrophils % 89.1 H PT 17.3 H INR 1.45 H POC ABG pH POC ABG pCO2 POC ABG pO2 Sodium Potassium Chloride Carbon Dioxide BUN 40 H Creatinine 2.2 H Glucose 216 H POC Glucose Calcium Magnesium CK-MB (CK-2) Troponin T C-Reactive Protein Total Protein Albumin TSH Salicylates Acetaminophen 04/19/19 04/19/19 07:33 Unknown RBC Hgb Hct MCV MCH Lymph % (Auto) Lymph # Seg Neutrophils % PT INR POC ABG pH POC ABG pCO2 POC ABG pO2 Sodium Potassium Chloride Carbon Dioxide BUN 38 H Creatinine 2.0 H Glucose 199 H POC Glucose 211 H Calcium Magnesium CK-MB (CK-2) Troponin T C-Reactive Protein Total Protein Albumin TSH Salicylates Acetaminophen Chest x-ray: image reviewed (cardiomegaly; COPD) Allied health notes reviewed: nursing
[2019-04-19] MEDS: PROzac PO SCH (11:04)
[2019-04-19] MEDS: ELIQUIS PO SCH ×2 (11:04→22:06)
[2019-04-19] MEDS: PROTONIX PO SCH (11:04)
[2019-04-19] MEDS: SODIUM CHLORIDE FLUSH SYRINGE 10 ML IV SCH ×2 (11:05→22:09)
--- NOTE | 2019-04-19 11:25 | Progress Note ---
Assessment and Plan Pt presented with symptomatic sinus bradycardia and parox atrial fibrillation with SVR. Suspect secondary to home medications - Cardizem CD 300mg daily and lopressor 50mg BID. He was initiated on dopamine gtt which has subsequently been weaned off. He is in AFib with HR 100s - 120s this AM, BPs WNL. Will attempt to reintroduce cardizem at low dosage and cont to monitor on telemetry. Cont Eliquis. INR is noted to be 1.45 this AM, LFTs WNL. Will f/u INR in AM. THS noted to be elevated - further eval/management per primary. Anemia noted. Pt declining further GI intervention at this time. The patient has been seen in conjunction with Dr. Lawton who agrees with the assessment and plan of care. - Patient Problems (1) Atrial fibrillation with slow ventricular response Current Visit: Yes Status: Acute (2) Symptomatic sinus bradycardia Current Visit: Yes Status: Acute (3) Hypotension Current Visit: Yes Status: Acute (4) Acute renal failure Current Visit: Yes Status: Acute (5) Hyperkalemia Current Visit: Yes Status: Acute (6) Hypomagnesemia Current Visit: Yes Status: Acute (7) COPD (chronic obstructive pulmonary disease) Current Visit: Yes Status: Chronic (8) Sleep apnea Current Visit: Yes Status: Chronic (9) Diabetes Current Visit: Yes Status: Chronic (10) Obesity Current Visit: Yes Status: Chronic (11) History of ETOH abuse Current Visit: Yes Status: Chronic (12) Anemia Current Visit: Yes Status: Acute Subjective Date of service: 04/19/19 Principal diagnosis: bradycardia, hypotension Interval history: pt resting in bed, no current complaints. weaned off dopamine. in AFib with HR 100s - 120s on telemetry. Objective Last Vital Signs Temp 97.7 F 04/18/19 20:06 Pulse 118 H 04/19/19 10:00 Resp 20 04/19/19 10:00 BP 110/66 04/19/19 06:20 Pulse Ox 93 04/19/19 10:00 - Physical Examination General: No Apparent Distress HEENT: Positive: PERRL, Normocephaly, Mucus Membranes Moist Neck: Positive: neck supple, trachea midline Cardiac: Positive: irregularly irregular, S1/S2 Lungs: Positive: Decreased Breath Sounds Neuro: Positive: Grossly Intact Abdomen: Negative: Tender Skin: Negative: Rash Musculoskeletal: No Pain Extremities: Absent: edema - Labs and Meds Cardiac Enzymes 04/18/19 Range/Units 10:16 CK-MB (CK-2) 4.5 H (0.0-4.0) ng/mL Coagulation 04/19/19 Range/Units 02:50 PT 17.3 H (12.2-14.9) Sec. INR 1.45 H (0.87-1.13) CBC 04/19/19 04/19/19 Range/Units 02:50 02:50 WBC 7.5 7.5 (4.5-11.0) K/mm3 RBC 2.84 L 2.80 L (3.65-5.03) M/mm3 Hgb 9.1 L 9.0 L (11.8-15.2) gm/dl Hct 28.0 L 27.7 L (35.5-45.6) % Plt Count 185 182 (140-440) K/mm3 Lymph # 0.5 L 0.5 L (1.2-5.4) K/mm3 [place] # 0.3 0.2 (0.0-0.8) K/mm3 Eos # 0.0 0.0 (0.0-0.4) K/mm3 Baso # 0.0 0.0 (0.0-0.1) K/mm3 Comprehensive Metabolic Panel 04/18/19 04/19/19 04/19/19 Range/Units 12:05 02:50 Unknown Sodium 134 L 139 138 (137-145) mmol/L Potassium 5.3 H 5.0 4.6 (3.6-5.0) mmol/L Chloride 96.3 L 99.7 100.0 (98-107) mmol/L Carbon Dioxide 26 23 23 (22-30) mmol/L BUN 48 H 40 H 38 H (9-20) mg/dL Creatinine 3.1 H 2.2 H 2.0 H (0.8-1.5) mg/dL Glucose 210 H 216 H 199 H (75-100) mg/dL Calcium 8.6 8.8 8.4 (8.4-10.2) mg/dL - Imaging and Cardiology EKG: image reviewed Echo: report reviewed (03/2019: EF 55-60%, abnormal left ventricular diastolic function) - Telemetry EKG Rhythm: Atrial Fibrillation - EKG Sinus rhythms and dysrhythmias: sinus bradycardia
[2019-04-19] MEDS ORDERED: LOPRESSOR IV PRN (13:01)
[2019-04-19] MEDS ORDERED: NEO-SYNEPHRINE 100 MG in NACL 0.9% 90 ML IV SCH (15:00)
[2019-04-19] MEDS: CARDIZEM PO SCH ×2 (15:21→22:08)
[2019-04-19 16:39] LABS: Creatinine,Urine 78.6 mg/dL (0.1-20.0); Protein/Creatinine Ratio,Urine 0.24
[2019-04-19] MEDS: TYLENOL PO PRN (17:47)
--- NOTE | 2019-04-19 21:50 | Progress Note ---
Assessment and Plan Assessment and plan: 58-year-old male with multiple medical problems, hypertension, diabetes, depression, hyperlipidemia, COPD, A. fib, chronic kidney disease, obesity comes emergency room feeling dizzy. Patient stated his symptoms started shortly after taking his night medications, which include calcium channel alexandro and a beta alexandro, also stated that he felt hot. In the emergency room he was hypotensive, bradycardic, I saw the patient his heart rate was 34. He was given hydrocortisone, Synthroid, cefepime, treated for hyperkalemia Symptomatic Bradycardia diltiazem 300 mg daily and Lopressor 50 mg twice a day secondary to calcium and beta blockers hypotension secondary to the above Renal failure, acute on chronic Hyperkalemia Abnormal cardiac enzymes Anemia diabetes depression Secondary coagulopathy secondary to lupus hyperlipidemia COPD A. fib HUMA obesity Plan Continue supportive candidate IC Discontinue levophed and started on dopamine drip currently been weaned off patient still remains in A. fib Continue oral anticoagulation Case discussed with tire tester will continue to monitor As discussed with membership director will continue to monitor in ICU and maybe subsequently transferred to IMCU if improvement Start IV fluid, check cardiac enzymes, consult cardiology,critical care give kayexlate, follow potassium Fingersticks initiate insulin sliding scale DVT prophylaxis History Interval history: Patient seen and examined, reports improvement with no acute distress. HR still uncontrolled Hospitalist Physical - Physical exam Narrative exam: VITAL SIGNS: Reviewed. Morbidly obese GENERAL: The patient appears normally developed, Vital signs as documented. HEAD: No signs of head trauma. EYES: Pupils are equal. Extraocular motions intact. EARS: Hearing grossly intact. MOUTH: Oropharynx is normal. NECK: No adenopathy, no JVD. CHEST: Chest with clear breath sounds bilaterally. No wheezes, rales, or rhonchi. CARDIAC: Irregularly regular rate and rhythm. S1 and S2, without murmurs, gallops, or rubs. VASCULAR: No Edema. Peripheral pulses normal and equal in all extremities. ABDOMEN: Soft, non tender and non distended. No rebound or guarding, and no masses palpated. Bowel Sounds normal. MUSCULOSKELETAL: Good range of motion of all major joints. Extremities without clubbing, cyanosis or edema. NEUROLOGIC EXAM: Alert and oriented x 3 No focal sensory or strength deficits. Speech normal. Follows commands. PSYCHIATRIC: Mood normal. SKIN: detial exam as documented in skin assessment - Constitutional Vitals: Temp Pulse Resp BP Pulse Ox 98.1 F 114 H 23 118/52 93 04/19/19 20:00 04/19/19 20:50 04/19/19 20:50 04/19/19 20:50 04/19/19 20:50 General appearance: Present: no acute distress Results - Labs CBC & Chem 7: 04/20/19 Unknown 04/20/19 Unknown Labs: Laboratory Last Values WBC 7.5 K/mm3 (4.5-11.0) 04/19/19 02:50 WBC 7.5 K/mm3 (4.5-11.0) 04/19/19 02:50 RBC 2.80 M/mm3 (3.65-5.03) L 04/19/19 02:50 RBC 2.84 M/mm3 (3.65-5.03) L 04/19/19 02:50 Hgb 9.0 gm/dl (11.8-15.2) L 04/19/19 02:50 Hgb 9.1 gm/dl (11.8-15.2) L 04/19/19 02:50 Hct 27.7 % (35.5-45.6) L 04/19/19 02:50 Hct 28.0 % (35.5-45.6) L 04/19/19 02:50 MCV 99 fl (84-94) H 04/19/19 02:50 MCV 99 fl (84-94) H 04/19/19 02:50 MCH 32 pg (28-32) 04/19/19 02:50 MCH 32 pg (28-32) 04/19/19 02:50 MCHC 32 % (32-34) 04/19/19 02:50 MCHC 33 % (32-34) 04/19/19 02:50 RDW 15.1 % (13.2-15.2) 04/19/19 02:50 RDW 15.1 % (13.2-15.2) 04/19/19 02:50 Plt Count 182 K/mm3 (140-440) 04/19/19 02:50 Plt Count 185 K/mm3 (140-440) 04/19/19 02:50 Lymph % (Auto) 7.2 % (13.4-35.0) L 04/19/19 02:50 Lymph % (Auto) 7.2 % (13.4-35.0) L 04/19/19 02:50 Clarke % (Auto) 3.1 % (0.0-7.3) 04/19/19 02:50 Clarke % (Auto) 3.7 % (0.0-7.3) 04/19/19 02:50 Eos % (Auto) 0.1 % (0.0-4.3) 04/19/19 02:50 Eos % (Auto) 0.1 % (0.0-4.3) 04/19/19 02:50 Baso % (Auto) 0.3 % (0.0-1.8) 04/19/19 02:50 Baso % (Auto) 0.5 % (0.0-1.8) 04/19/19 02:50 Lymph # 0.5 K/mm3 (1.2-5.4) L 04/19/19 02:50 Lymph # 0.5 K/mm3 (1.2-5.4) L 04/19/19 02:50 Clarke # 0.2 K/mm3 (0.0-0.8) 04/19/19 02:50 Clarke # 0.3 K/mm3 (0.0-0.8) 04/19/19 02:50 Eos # 0.0 K/mm3 (0.0-0.4) 04/19/19 02:50 Eos # 0.0 K/mm3 (0.0-0.4) 04/19/19 02:50 Baso # 0.0 K/mm3 (0.0-0.1) 04/19/19 02:50 Baso # 0.0 K/mm3 (0.0-0.1) 04/19/19 02:50 Seg Neutrophils % 88.7 % (40.0-70.0) H 04/19/19 02:50 Seg Neutrophils % 89.1 % (40.0-70.0) H 04/19/19 02:50 Seg Neutrophils # 6.7 K/mm3 (1.8-7.7) 04/19/19 02:50 Seg Neutrophils # 6.7 K/mm3 (1.8-7.7) 04/19/19 02:50 PT 17.3 Sec. (12.2-14.9) H 04/19/19 02:50 INR 1.45 (0.87-1.13) H 04/19/19 02:50 POC ABG pH 7.379 (7.35-7.45) 04/19/19 15:23 POC ABG pCO2 37.5 (35-45) 04/19/19 15:23 POC ABG pO2 96 (80-105) 04/19/19 15:23 POC ABG HCO3 22.1 (22-26 mml/L) 04/19/19 15:23 POC ABG Total CO2 23 (23-27mmol/L) 04/19/19 15:23 POC ABG O2 Sat 97 04/19/19 15:23 POC ABG Base Excess -3 ((-2) - (+3)mmol/L) 04/19/19 15:23 3 % 04/19/19 15:23 Sodium 138 mmol/L (137-145) 04/19/19 Unknown Potassium 4.6 mmol/L (3.6-5.0) 04/19/19 Unknown Chloride 100.0 mmol/L (98-107) 04/19/19 Unknown Carbon Dioxide 23 mmol/L (22-30) 04/19/19 Unknown 20 mmol/L 04/19/19 Unknown BUN 38 mg/dL (9-20) H 04/19/19 Unknown 2.0 mg/dL (0.8-1.5) H 04/19/19 Unknown Estimated GFR 34 ml/min 04/19/19 Unknown 19 % 04/19/19 Unknown Glucose 199 mg/dL (75-100) H 04/19/19 Unknown POC Glucose 353 (70-105) H 04/19/19 21:34 Lactic Acid 1.50 mmol/L (0.7-2.0) 04/18/19 03:17 Calcium 8.4 mg/dL (8.4-10.2) 04/19/19 Unknown Magnesium 1.80 mg/dL (1.7-2.3) 04/19/19 02:50 0.50 mg/dL (0.1-1.2) 04/18/19 00:26 AST 30 units/L (5-40) 04/18/19 00:26 ALT 45 units/L (7-56) 04/18/19 00:26 101 units/L (35-129) 04/18/19 00:26 155 units/L (55-170) 04/18/19 10:16 CK-MB (CK-2) 4.5 ng/mL (0.0-4.0) H 04/18/19 10:16 CK-MB (CK-2) Rel Index 2.9 (0-4) 04/18/19 10:16 0.032 ng/mL (0.00-0.029) H D 04/18/19 10:16 1.50 mg/dL (0.00-1.30) H 04/18/19 12:05 5.1 g/dL (6.3-8.2) L 04/18/19 00:26 3.1 g/dL (3.9-5) L 04/18/19 00:26 1.6 % 04/18/19 00:26 Triglycerides 95 mg/dL (2-149) 04/18/19 00:26 Cholesterol 119 mg/dL (50-199) 04/18/19 00:26 59 mg/dL (50-130) 04/18/19 00:26 53 mg/dL (40-59) 04/18/19 00:26 2.24 % 04/18/19 00:26 TSH 9.560 mlU/mL (0.270-4.200) H 04/18/19 00:26 Free T4 1.13 ng/dL (0.76-1.46) 04/18/19 00:26 Yellow (Yellow) 04/18/19 09:24 Clear (Clear) 04/18/19 09:24 5.0 (5.0-7.0) 04/18/19 09:24 Ur Specific [place] 1.012 (1.003-1.030) 04/18/19 09:24 <15 mg/dl mg/dL (Negative) 04/18/19 09:24 150 mg/dL (Negative) 04/18/19 09:24 Neg mg/dL (Negative) 04/18/19 09:24 Sm (Negative) 04/18/19 09:24 Neg (Negative) 04/18/19 09:24 Neg (Negative) 04/18/19 09:24 < 2.0 mg/dL (<2.0) 04/18/19 09:24 Ur Leukocyte Esterase Neg (Negative) 04/18/19 09:24 2.0 /HPF (0.0-6.0) 04/18/19 09:24 < 1.0 /HPF (0.0-6.0) 04/18/19 09:24 U Epithel Cells (Auto) < 1.0 /HPF (0-13.0) 04/18/19 09:24 None seen (None Seen) 04/18/19 03:50 78.6 mg/dL (0.1-20.0) H 04/18/19 03:50 Protein/Creatinin Ratio 0.24 04/18/19 03:50 35 mmol/L 04/18/19 09:24 19 mg/dL (5-11.8) H 04/18/19 03:50 Salicylates < 0.3 mg/dL (2.8-20.0) L 04/18/19 00:26 Acetaminophen < 5.0 ug/mL (10.0-30.0) L 04/18/19 00:26 Plasma/Serum Alcohol < 0.01 % (0-0.07) 04/18/19 00:26 Blood Type O POSITIVE 04/18/19 00:33 Antibody Screen Negative 04/18/19 00:33 Active Medications - Current Medications Current Medications: Generic Name Dose Route Start Last Admin Trade Name Freq PRN Reason Stop Dose Admin Acetaminophen 650 mg 04/18/19 04:12 04/19/19 17:47 Tylenol PO 650 mg Q4H PRN Administration Pain MILD(1-3)/Fever >100.5/ARIAS Albuterol 2.5 mg 04/18/19 10:06 Proventil IH Q4HRT PRN Shortness Of Breath Apixaban 5 mg 04/18/19 10:00 04/19/19 11:04 Eliquis PO 5 mg Q12HR RADHA Administration Protocol Arformoterol Tartrate 15 mcg 04/18/19 12:30 04/19/19 20:36 Brovana Nebu IH 15 mcg Q12HRT RADHA Administration Atorvastatin Calcium 40 mg 04/19/19 10:00 04/19/19 11:04 Lipitor PO 40 mg DAILY RADHA Administration Benzonatate 100 mg 04/18/19 14:00 Tessalon Perles PO Q8HR PRN Cough Budesonide 0.5 mg 04/18/19 20:00 04/19/19 20:36 Pulmicort IH 0.5 mg Q12HRT RADHA Administration Dextrose 50 ml 04/18/19 04:21 D50w (25gm) Syringe IV PRN PRN Hypoglycemia Diltiazem HCl 60 mg 04/19/19 14:00 04/19/19 15:21 Cardizem PO 60 mg TID RADHA Administration Fluoxetine HCl 10 mg 04/19/19 10:00 04/19/19 11:04 Prozac PO 10 mg QDAY RADHA Administration Hydrocortisone Sodium Succinate 100 mg 04/18/19 14:00 04/19/19 15:22 Solu-Cortef IV 04/19/19 23:59 100 mg Q8HR RADHA Administration Hydrocortisone Sodium Succinate 50 mg 04/20/19 06:00 Solu-Cortef IV 04/20/19 22:01 Q8HR RADHA Hydrocortisone Sodium Succinate 50 mg 04/21/19 10:00 Solu-Cortef IV 04/21/19 22:01 Q12H RADHA Phenylephrine HCl 100 mg/ 100 mls @ 3 mls/hr 04/19/19 15:00 04/19/19 17:41 Sodium Chloride IV 50 mcg/min TITR RADHA 3 mls/hr Administration Protocol 50 MCG/MIN Insulin Human Lispro 0 unit 04/18/19 22:00 04/19/19 17:42 Humalog SUB-Q 8 unit ACHS RADHA Administration Protocol Metoprolol Tartrate 5 mg 04/19/19 13:01 Lopressor IV Q8H PRN HR > 130 Morphine Sulfate 2 mg 04/18/19 22:27 04/19/19 08:10 Morphine IV 2 mg Q4H PRN Administration Pain, Moderate (4-6) Ondansetron HCl 4 mg 04/18/19 04:12 Zofran IV Q8H PRN Nausea And Vomiting Pantoprazole Sodium 40 mg 04/18/19 13:00 04/19/19 11:04 Protonix PO 40 mg QDAY RDAHA Administration Prednisone 10 mg 04/22/19 10:00 Deltasone PO QDAY RADHA Quetiapine Fumarate 25 mg 04/18/19 22:00 04/19/19 11:04 Seroquel PO 25 mg BID RADHA Administration Sodium Chloride 10 ml 04/18/19 10:00 04/19/19 11:05 Sodium Chloride Flush Syringe 10 Ml IV 10 ml BID RADHA Administration Sodium Chloride 10 ml 04/18/19 04:12 Sodium Chloride Flush Syringe 10 Ml IV PRN PRN LINE FLUSH
[2019-04-20 05:32] LABS: Basophils % (Auto) 0.4 % (0.0-1.8); Eosinophils % (Auto) 0.1 % (0.0-4.3); Hematocrit 25.7 % (35.5-45.6); Hemoglobin 8.6 gm/dl (11.8-15.2); Lymphocytes # (Auto) 1.1 K/mm3 (1.2-5.4); Lymphocytes % (Auto) 12.5 % (13.4-35.0); Mean Corpuscular HGB Conc 33 % (32-34); Mean Corpuscular Volume 99 fl (84-94); Monocytes # (Auto) 0.6 K/mm3 (0.0-0.8); Monocytes % (Auto) 6.4 % (0.0-7.3); Platelet Count 205 K/mm3 (140-440); Red Blood Count 2.61 M/mm3 (3.65-5.03)
[2019-04-20 05:45] LABS: Calcium 8.2 mg/dL (8.4-10.2)
[2019-04-20] MEDS: HumaLOG SUB-Q SCH ×4 (07:30→21:29)
[2019-04-20] MEDS: CARDIZEM PO SCH ×3 (08:00→21:06)
[2019-04-20] MEDS: PROTONIX PO SCH (09:02)
[2019-04-20] MEDS: PROzac PO SCH (09:02)
[2019-04-20] MEDS: ELIQUIS PO SCH ×2 (09:02→21:06)
[2019-04-20] MEDS: SODIUM CHLORIDE FLUSH SYRINGE 10 ML IV SCH ×2 (09:03→21:08)
[2019-04-20] MEDS: BROVANA NEBU IH SCH ×2 (09:14→19:34)
[2019-04-20] MEDS: PULMICORT IH SCH ×2 (09:14→19:34)
--- NOTE | 2019-04-20 09:24 | Progress Note ---
Assessment and Plan Hypotension secondary to bradycardia, on Dopamine Acute renal failure, likely prerenal azotemia but cannot rule ischemic ATN Hyperkalemia status post Kayexelate diabetes A. fib on Eliquis - renal US negative for obstruction - K normalized - kidney function cont to improve - renally dose meds - strict I&O - daily weight Odin Erazo MD [phone] Subjective Date of service: 04/20/19 Principal diagnosis: hyotension and bradycardia Interval history: feels much better, mild SHOB Objective - Vital Signs Vital signs: Vital Signs - 12hr 04/19/19 04/19/19 04/19/19 21:30 21:40 21:50 Temperature Pulse Rate 99 H 114 H 103 H Pulse Rate [ Anterior Bilateral Throughout] Pulse Rate [ From Monitor] Respiratory 15 21 19 Rate Respiratory Rate [Anterior Bilateral Throughout] Blood Pressure 113/57 109/63 109/63 O2 Sat by Pulse 95 97 96 Oximetry 04/19/19 04/19/19 04/19/19 22:00 22:08 22:10 Temperature Pulse Rate 87 109 H 120 H Pulse Rate [ Anterior Bilateral Throughout] Pulse Rate [ From Monitor] Respiratory 22 21 Rate Respiratory Rate [Anterior Bilateral Throughout] Blood Pressure 109/63 112/51 112/51 O2 Sat by Pulse 96 97 Oximetry 04/19/19 04/19/19 04/19/19 22:20 22:30 22:40 Temperature Pulse Rate 105 H 104 H 105 H Pulse Rate [ Anterior Bilateral Throughout] Pulse Rate [ From Monitor] Respiratory 22 22 20 Rate Respiratory Rate [Anterior Bilateral Throughout] Blood Pressure 112/51 112/51 95/60 O2 Sat by Pulse 96 97 95 Oximetry 04/19/19 04/19/19 04/19/19 22:50 23:00 23:02 Temperature Pulse Rate 107 H 78 85 Pulse Rate [ Anterior Bilateral Throughout] Pulse Rate [ From Monitor] Respiratory 15 16 17 Rate Respiratory Rate [Anterior Bilateral Throughout] Blood Pressure 95/60 92/51 92/51 O2 Sat by Pulse 95 95 95 Oximetry 04/19/19 04/19/19 04/19/19 23:10 23:20 23:28 Temperature 98.1 F Pulse Rate 101 H 105 H Pulse Rate [ Anterior Bilateral Throughout] Pulse Rate [ From Monitor] Respiratory 12 17 Rate Respiratory Rate [Anterior Bilateral Throughout] Blood Pressure 92/51 92/51 O2 Sat by Pulse 96 93 Oximetry 04/19/19 04/19/19 04/19/19 23:30 23:40 23:50 Temperature Pulse Rate 85 72 75 Pulse Rate [ Anterior Bilateral Throughout] Pulse Rate [ From Monitor] Respiratory 20 12 12 Rate Respiratory Rate [Anterior Bilateral Throughout] Blood Pressure 92/56 92/56 92/56 O2 Sat by Pulse 91 91 87 Oximetry 04/20/19 04/20/19 04/20/19 00:00 00:10 00:20 Temperature Pulse Rate 78 95 H 83 Pulse Rate [ Anterior Bilateral Throughout] Pulse Rate [ 90 From Monitor] Respiratory 13 16 15 Rate Respiratory Rate [Anterior Bilateral Throughout] Blood Pressure 100/58 100/58 100/58 O2 Sat by Pulse 89 90 88 Oximetry 04/20/19 04/20/19 04/20/19 00:30 00:40 00:50 Temperature Pulse Rate 84 81 86 Pulse Rate [ Anterior Bilateral Throughout] Pulse Rate [ From Monitor] Respiratory 15 16 15 Rate Respiratory Rate [Anterior Bilateral Throughout] Blood Pressure 104/58 104/58 104/58 O2 Sat by Pulse 90 89 91 Oximetry 04/20/19 04/20/19 04/20/19 01:00 01:10 01:20 Temperature Pulse Rate 80 71 93 H Pulse Rate [ Anterior Bilateral Throughout] Pulse Rate [ From Monitor] Respiratory 13 15 17 Rate Respiratory Rate [Anterior Bilateral Throughout] Blood Pressure 99/59 99/59 104/58 O2 Sat by Pulse 90 85 90 Oximetry 04/20/19 04/20/19 04/20/19 01:30 01:40 01:50 Temperature Pulse Rate 86 83 77 Pulse Rate [ Anterior Bilateral Throughout] Pulse Rate [ From Monitor] Respiratory 17 19 14 Rate Respiratory Rate [Anterior Bilateral Throughout] Blood Pressure 104/58 104/58 99/59 O2 Sat by Pulse 89 89 90 Oximetry 04/20/19 04/20/19 04/20/19 02:00 02:10 02:20 Temperature Pulse Rate 79 117 H 80 Pulse Rate [ Anterior Bilateral Throughout] Pulse Rate [ From Monitor] Respiratory 15 22 19 Rate Respiratory Rate [Anterior Bilateral Throughout] Blood Pressure 99/59 115/49 115/49 O2 Sat by Pulse 87 91 90 Oximetry 04/20/19 04/20/19 04/20/19 02:30 02:40 02:50 Temperature Pulse Rate 85 103 H 90 Pulse Rate [ Anterior Bilateral Throughout] Pulse Rate [ From Monitor] Respiratory 22 17 20 Rate Respiratory Rate [Anterior Bilateral Throughout] Blood Pressure 115/49 115/49 115/49 O2 Sat by Pulse 96 92 92 Oximetry 04/20/19 04/20/19 04/20/19 03:00 03:10 03:20 Temperature Pulse Rate 107 H 103 H 90 Pulse Rate [ Anterior Bilateral Throughout] Pulse Rate [ From Monitor] Respiratory 20 13 21 Rate Respiratory Rate [Anterior Bilateral Throughout] Blood Pressure 115/49 115/49 115/49 O2 Sat by Pulse 91 92 93 Oximetry 04/20/19 04/20/19 04/20/19 03:30 03:40 03:49 Temperature 97.2 F L Pulse Rate 88 91 H Pulse Rate [ Anterior Bilateral Throughout] Pulse Rate [ From Monitor] Respiratory 19 18 Rate Respiratory Rate [Anterior Bilateral Throughout] Blood Pressure 115/49 115/49 O2 Sat by Pulse 91 96 Oximetry 04/20/19 04/20/19 04/20/19 03:50 04:00 04:10 Temperature Pulse Rate 90 88 82 Pulse Rate [ Anterior Bilateral Throughout] Pulse Rate [ From Monitor] Respiratory 20 21 18 Rate Respiratory Rate [Anterior Bilateral Throughout] Blood Pressure 115/49 115/49 137/77 O2 Sat by Pulse 96 97 97 Oximetry 04/20/19 04/20/19 04/20/19 04:20 04:30 04:40 Temperature Pulse Rate 85 81 96 H Pulse Rate [ Anterior Bilateral Throughout] Pulse Rate [ 92 H From Monitor] Respiratory 12 18 21 Rate Respiratory Rate [Anterior Bilateral Throughout] Blood Pressure 137/77 152/84 152/84 O2 Sat by Pulse 97 95 96 Oximetry 04/20/19 04/20/19 04/20/19 04:50 05:00 05:10 Temperature Pulse Rate 87 87 85 Pulse Rate [ Anterior Bilateral Throughout] Pulse Rate [ From Monitor] Respiratory 21 14 16 Rate Respiratory Rate [Anterior Bilateral Throughout] Blood Pressure 152/84 152/84 163/87 O2 Sat by Pulse 97 98 97 Oximetry 04/20/19 04/20/19 04/20/19 05:20 05:30 05:40 Temperature Pulse Rate 93 H 90 94 H Pulse Rate [ Anterior Bilateral Throughout] Pulse Rate [ From Monitor] Respiratory 12 20 21 Rate Respiratory Rate [Anterior Bilateral Throughout] Blood Pressure 163/87 163/87 137/73 O2 Sat by Pulse 97 97 97 Oximetry 04/20/19 04/20/1904/20/19 05:50 06:00 06:10 Temperature Pulse Rate 93 H 86 94 H Pulse Rate [ Anterior Bilateral Throughout] Pulse Rate [ From Monitor] Respiratory 19 18 17 Rate Respiratory Rate [Anterior Bilateral Throughout] Blood Pressure 137/73 140/87 140/87 O2 Sat by Pulse 97 97 97 Oximetry 04/20/19 04/20/19 04/20/19 06:20 06:30 06:40 Temperature Pulse Rate 97 H 80 81 Pulse Rate [ Anterior Bilateral Throughout] Pulse Rate [ From Monitor] Respiratory 12 10 L 19 Rate Respiratory Rate [Anterior Bilateral Throughout] Blood Pressure 140/87 140/87 132/79 O2 Sat by Pulse 96 97 97 Oximetry 04/20/19 04/20/19 04/20/19 06:50 07:00 07:10 Temperature Pulse Rate 92 H 88 87 Pulse Rate [ Anterior Bilateral Throughout] Pulse Rate [ From Monitor] Respiratory 17 12 18 Rate Respiratory Rate [Anterior Bilateral Throughout] Blood Pressure 132/79 140/84 140/84 O2 Sat by Pulse 96 97 93 Oximetry 04/20/19 04/20/19 04/20/19 07:20 07:30 07:40 Temperature Pulse Rate 91 H 90 89 Pulse Rate [ Anterior Bilateral Throughout] Pulse Rate [ From Monitor] Respiratory 13 13 14 Rate Respiratory Rate [Anterior Bilateral Throughout] Blood Pressure 140/84 140/84 144/86 O2 Sat by Pulse 93 91 91 Oximetry 04/20/19 04/20/19 04/20/19 07:50 08:00 08:10 Temperature 98.0 F Pulse Rate 92 H 122 H 126 H Pulse Rate [ Anterior Bilateral Throughout] Pulse Rate [ 90 From Monitor] Respiratory 13 15 18 Rate Respiratory Rate [Anterior Bilateral Throughout] Blood Pressure 144/86 143/81 143/81 O2 Sat by Pulse 89 91 95 Oximetry 04/20/19 09:16 Temperature Pulse Rate Pulse Rate [ 100 H Anterior Bilateral Throughout] Pulse Rate [ From Monitor] Respiratory Rate Respiratory 18 Rate [Anterior Bilateral Throughout] Blood Pressure O2 Sat by Pulse 97 Oximetry - General Appearance General appearance: well-developed, well-nourished, obese EENT: ATNC, PERRL, mucous membranes moist Neck: no JVD, no carotid bruit Respiratory: Present: Decreased Breath Sounds Cardiology: regular, S1S2 Gastrointestinal: normoactive bowel sounds, no tenderness, no distended Neurologic: no focal deficit, no asterixis, alert and oriented x3 Musculoskeletal: other (1+ pittign edema in BLE) Psychiatric: mood/affect appropriate, cooperative - Lab 04/20/19 Unknown 04/20/19 Unknown Most recent lab results Calcium 8.2 mg/dL (8.4-10.2) L 04/20/19 Unknown Magnesium 1.80 mg/dL (1.7-2.3) 04/19/19 02:50 78.6 mg/dL (0.1-20.0) H 04/18/19 03:50 35 mmol/L 04/18/19 09:24 19 mg/dL (5-11.8) H 04/18/19 03:50 Medications & Allergies - Medications Allergies/Adverse Reactions: Allergies No Known Allergies Allergy (Unverified 08/21/14 12:00) Home Medications: Home Medications Medication Instructions Recorded Confirmed Last Taken Type ALBUTEROL Inhaler (OR & NICU) 2 puff IH QID PRN 03/29/19 04/18/19 04/17/19 History [ProAir HFA Inhaler] Glimepiride [Amaryl] 2 mg PO BID 03/29/19 04/18/19 04/17/19 History Metformin HCl [metFORMIN] 1,000 mg PO BID 03/29/19 04/18/19 04/17/19 History Pantoprazole [Protonix TAB] 40 mg PO QDAY 03/29/19 04/18/19 04/17/19 History ALBUTEROL NEB's [Proventil 0.083% 2.5 mg IH Q4HRT PRN #60 nebu 04/14/19 04/18/19 04/17/19 Rx NEBS] Apixaban [Eliquis] 5 mg PO BID #60 tablet 04/14/19 04/18/19 04/17/19 Rx AtorvaSTATin [Lipitor] 40 mg PO DAILY #30 tablet 04/14/19 04/18/19 04/16/19 Rx Benzonatate [Tessalon Perles] 100 mg PO Q8HR #14 capsule 04/14/19 04/18/19 04/16/19 Rx FLUoxetine HCL [Prozac] 10 mg PO QDAY #30 capsule 04/14/19 04/18/19 04/17/19 Rx Ipratropium/Albuterol Sulfate 1 ampul IH TIDRT #90 ampul.neb 04/14/19 04/18/19 04/17/19 Rx [DUONEB *Not for PRN Use*] Metoprolol [Lopressor TAB] 50 mg PO BID #60 tablet 04/14/19 04/18/19 04/17/19 Rx QUEtiapine [SEROquel] 25 mg PO BID #60 tablet 04/14/19 04/18/19 04/16/19 Rx Tiotropium [place] [Spiriva 4 gm IH QDAY #1 mist.inhal 04/14/19 04/18/19 04/17/19 Rx Respimat] dilTIAZem CD [Cardizem CD] 300 mg PO QDAY #30 capsule 04/14/19 04/18/19 04/17/19 Rx predniSONE [Deltasone] 10 mg PO QDAY #2 tablet 04/14/19 04/18/19 04/17/19 Rx Active Medications: Generic Name Dose Route Start Last Admin Trade Name Freq PRN Reason Stop Dose Admin Acetaminophen 650 mg 04/18/19 04:12 04/19/19 17:47 Tylenol PO 650 mg Q4H PRN Administration Pain MILD(1-3)/Fever >100.5/ARIAS Albuterol 2.5 mg 04/18/19 10:06 Proventil IH Q4HRT PRN Shortness Of Breath Apixaban 5 mg 04/18/19 10:00 04/20/19 09:02 Eliquis PO 5 mg Q12HR RADHA Administration Protocol Arformoterol Tartrate 15 mcg 04/18/19 12:30 04/20/19 09:14 Brovana Nebu IH 15 mcg Q12HRT RADHA Administration Atorvastatin Calcium 40 mg 04/19/19 10:00 04/20/19 09:01 Lipitor PO 40 mg DAILY RADHA Administration Benzonatate 100 mg 04/18/19 14:00 Tessalon Perles PO Q8HR PRN Cough Budesonide 0.5 mg 04/18/19 20:00 04/20/19 09:14 Pulmicort IH 0.5 mg Q12HRT RADHA Administration Dextrose 50 ml 04/18/19 04:21 D50w (25gm) Syringe IV PRN PRN Hypoglycemia Diltiazem HCl 60 mg 04/19/19 14:00 04/20/19 08:00 Cardizem PO 60 mg TID RADHA Administration Fluoxetine HCl 10 mg 04/19/19 10:00 04/20/19 09:02 Prozac PO 10 mg QDAY RADHA Administration Hydrocortisone Sodium Succinate 50 mg 04/20/19 06:00 04/20/19 06:31 Solu-Cortef IV 04/20/19 22:01 50 mg Q8HR RADHA Administration Hydrocortisone Sodium Succinate 50 mg 04/21/19 10:00 Solu-Cortef IV 04/21/19 22:01 Q12H RADHA Phenylephrine HCl 100 mg/ 100 mls @ 3 mls/hr 04/19/19 15:00 04/20/19 09:07 Sodium Chloride IV 40 mcg/min TITR RADHA 2.4 mls/hr Titration Protocol 50 MCG/MIN Insulin Human Lispro 0 unit 04/18/19 22:00 04/20/19 07:30 Humalog SUB-Q 6 unit ACHS RADHA Administration Protocol Metoprolol Tartrate 5 mg 04/19/19 13:01 Lopressor IV Q8H PRN HR > 130 Morphine Sulfate 2 mg 04/18/19 22:27 04/19/19 08:10 Morphine IV 2 mg Q4H PRN Administration Pain, Moderate (4-6) Ondansetron HCl 4 mg 04/18/19 04:12 Zofran IV Q8H PRN Nausea And Vomiting Pantoprazole Sodium 40 mg 04/18/19 13:00 04/20/19 09:02 Protonix PO 40 mg QDAY RADHA Administration Prednisone 10 mg 04/22/19 10:00 Deltasone PO QDAY RADHA Quetiapine Fumarate 25 mg 04/18/19 22:00 04/20/19 09:03 Seroquel PO 25 mg BID RADHA Administration Sodium Chloride 10 ml 04/18/19 10:00 04/20/19 09:03 Sodium Chloride Flush Syringe 10 Ml IV 10 ml BID RADHA Administration Sodium Chloride 10 ml 04/18/19 04:12 Sodium Chloride Flush Syringe 10 Ml IV PRN PRN LINE FLUSH
--- NOTE | 2019-04-20 10:40 | Progress Note ---
Assessment and Plan The patient's cardiac status is improving. Will increase diltiazem to 90 mg po TID. Continue other cardiac management for now. The patient has been seen in conjunction with Dr. Lawton, who agrees with the assessment and plan. Subjective Date of service: 04/20/19 Principal diagnosis: hyotension and bradycardia Interval history: The patient is lying in bed in [facility]. He has no cardiac complaints. Telemetry reviewed - afib in 100s to 120s. Objective Last Vital Signs Temp 98.0 F 04/20/19 08:00 Pulse 109 H 04/20/19 09:16 Resp 12 04/20/19 09:16 BP 143/81 04/20/19 08:10 Pulse Ox 97 04/20/19 09:16 - Physical Examination General: No Apparent Distress HEENT: Positive: PERRL, Normocephaly, Mucus Membranes Moist Neck: Positive: neck supple, trachea midline Cardiac: Positive: irregularly irregular Lungs: Positive: Decreased Breath Sounds Neuro: Positive: Grossly Intact Abdomen: Positive: Unremarkable. Negative: Tender /Rectal: Other (deferred) Skin: Positive: Clear. Negative: Rash Musculoskeletal: No Pain Extremities: Present: normal. Absent: edema - Labs and Meds CBC 04/20/19 Range/Units Unknown WBC 8.7 (4.5-11.0) K/mm3 RBC 2.61 L (3.65-5.03) M/mm3 Hgb 8.6 L (11.8-15.2) gm/dl Hct 25.7 L (35.5-45.6) % Plt Count 205 (140-440) K/mm3 Lymph # 1.1 L (1.2-5.4) K/mm3 [place] # 0.6 (0.0-0.8) K/mm3 Eos # 0.0 (0.0-0.4) K/mm3 Baso # 0.0 (0.0-0.1) K/mm3 Comprehensive Metabolic Panel 04/20/19 Range/Units Unknown Sodium 136 L (137-145) mmol/L Potassium 4.2 (3.6-5.0) mmol/L Chloride 99.7 (98-107) mmol/L Carbon Dioxide 25 (22-30) mmol/L BUN 33 H (9-20) mg/dL Creatinine 1.5 (0.8-1.5) mg/dL Glucose 293 H (75-100) mg/dL Calcium 8.2 L (8.4-10.2) mg/dL - Imaging and Cardiology EKG: image reviewed Echo: report reviewed (03/2019: EF 55-60%, abnormal left ventricular diastolic function) - EKG Sinus rhythms and dysrhythmias: sinus bradycardia
--- NOTE | 2019-04-20 10:54 | Progress Note ---
Assessment and Plan Assessment and plan: 58-year-old male with multiple medical problems, hypertension, diabetes, depression, hyperlipidemia, COPD, A. fib, chronic kidney disease, obesity comes emergency room feeling dizzy. Patient stated his symptoms started shortly after taking his night medications, which include calcium channel alexandro and a beta alexandro, also stated that he felt hot. In the emergency room he was hypotensive, bradycardic, I saw the patient his heart rate was 34. He was given hydrocortisone, Synthroid, cefepime, treated for hyperkalemia * Discontinue levophed and started on dopamine drip currently been weaned off patient still remains in A. fib * Was also started on neosynephrin, now weaned off * Right ankle xray: severe to moderate difffuse subcutaneous edema * Symptomatic Bradycardia Hypotension secondary to the above Osteoathritis of right ankle-outpatient ortho Renal failure, acute on chronic Hyperkalemia Abnormal cardiac enzymes Anemia Diabetes and mellitus Depression Secondary coagulopathy secondary to lupus hyperlipidemia COPD A. fib HUMA obesity Plan Continue supportive candidate IC Defer Repeat Echo to cardiology cardiology adjusting antiarrhythmics Continue oral anticoagulation start night time lantus Case discussed with cvor nurse will continue to monitor As discussed with operations section manager will continue to monitor in ICU and maybe subsequently transferred to IMCU if improvement give kayexlate, follow potassium Fingersticks initiate insulin sliding scale DVT prophylaxis The high probability of a clinically significant, sudden or life threatening deterioration of the [CARDIAC] system(s) required my full and direct attention, intervention and personal management. The aggregate critical care time was [35] minutes. This time is in addition to time spent performing reported procedures but includes the following: [X] Data Review and interpretation [X] Patient assessment and monitoring of vital signs [X] Documentation [X] Medication orders and management History Interval history: Patient seen and examined, reports improvement with no acute distress. HR still uncontrolled, otherwise no new complaints Hospitalist Physical - Physical exam Narrative exam: VITAL SIGNS: Reviewed. Morbidly obese GENERAL: The patient appears normally developed, Vital signs as documented. HEAD: No signs of head trauma. EYES: Pupils are equal. Extraocular motions intact. EARS: Hearing grossly intact. MOUTH: Oropharynx is normal. NECK: No adenopathy, no JVD. CHEST: Chest with clear breath sounds bilaterally. No wheezes, rales, or rhonchi. CARDIAC: Irregularly regular rate and rhythm. S1 and S2, without murmurs, gallops, or rubs. VASCULAR: No Edema. Peripheral pulses normal and equal in all extremities. ABDOMEN: Soft, non tender and non distended. No rebound or guarding, and no masses palpated. Bowel Sounds normal. MUSCULOSKELETAL: Good range of motion of all major joints. Extremities without clubbing, cyanosis or edema. NEUROLOGIC EXAM: Alert and oriented x 3 No focal sensory or strength deficits. Speech normal. Follows commands. PSYCHIATRIC: Mood normal. SKIN: detail exam as documented in skin assessment - Constitutional Vitals: Temp Pulse Resp BP Pulse Ox 98.0 F 109 H 12 143/81 97 04/20/19 08:00 04/20/19 09:16 04/20/19 09:16 04/20/19 08:10 04/20/19 09:16 General appearance: Present: no acute distress Results - Labs CBC & Chem 7: 04/20/19 Unknown 04/20/19 Unknown Labs: Laboratory Last Values WBC 8.7 K/mm3 (4.5-11.0) 04/20/19 Unknown RBC 2.61 M/mm3 (3.65-5.03) L 04/20/19 Unknown Hgb 8.6 gm/dl (11.8-15.2) L 04/20/19 Unknown Hct 25.7 % (35.5-45.6) L 04/20/19 Unknown MCV 99 fl (84-94) H 04/20/19 Unknown MCH 33 pg (28-32) H 04/20/19 Unknown MCHC 33 % (32-34) 04/20/19 Unknown RDW 15.0 % (13.2-15.2) 04/20/19 Unknown Plt Count 205 K/mm3 (140-440) 04/20/19 Unknown Lymph % (Auto) 12.5 % (13.4-35.0) L 04/20/19 Unknown [place] % (Auto) 6.4 % (0.0-7.3) 04/20/19 Unknown Eos % (Auto) 0.1 % (0.0-4.3) 04/20/19 Unknown Baso % (Auto) 0.4 % (0.0-1.8) 04/20/19 Unknown Lymph # 1.1 K/mm3 (1.2-5.4) L 04/20/19 Unknown [place] # 0.6 K/mm3 (0.0-0.8) 04/20/19 Unknown Eos # 0.0 K/mm3 (0.0-0.4) 04/20/19 Unknown Baso # 0.0 K/mm3 (0.0-0.1) 04/20/19 Unknown Seg Neutrophils % 80.6 % (40.0-70.0) H 04/20/19 Unknown Seg Neutrophils # 7.0 K/mm3 (1.8-7.7) 04/20/19 Unknown PT 17.3 Sec. (12.2-14.9) H 04/19/19 02:50 INR 1.45 (0.87-1.13) H 04/19/19 02:50 POC ABG pH 7.379 (7.35-7.45) 04/19/19 15:23 POC ABG pCO2 37.5 (35-45) 04/19/19 15:23 POC ABG pO2 96 (80-105) 04/19/19 15:23 POC ABG HCO3 22.1 (22-26 mml/L) 04/19/19 15:23 POC ABG Total CO2 23 (23-27mmol/L) 04/19/19 15:23 POC ABG O2 Sat 97 04/19/19 15:23 POC ABG Base Excess -3 ((-2) - (+3)mmol/L) 04/19/19 15:23 3 % 04/19/19 15:23 Sodium 136 mmol/L (137-145) L 04/20/19 Unknown Potassium 4.2 mmol/L (3.6-5.0) 04/20/19 Unknown Chloride 99.7 mmol/L (98-107) 04/20/19 Unknown Carbon Dioxide 25 mmol/L (22-30) 04/20/19 Unknown 16 mmol/L 04/20/19 Unknown BUN 33 mg/dL (9-20) H 04/20/19 Unknown 1.5 mg/dL (0.8-1.5) 04/20/19 Unknown Estimated GFR 48 ml/min 04/20/19 Unknown 22 % 04/20/19 Unknown Glucose 293 mg/dL (75-100) H 04/20/19 Unknown POC Glucose 266 (70-105) H 04/20/19 07:42 Lactic Acid 1.50 mmol/L (0.7-2.0) 04/18/19 03:17 Calcium 8.2 mg/dL (8.4-10.2) L 04/20/19 Unknown Magnesium 1.80 mg/dL (1.7-2.3) 04/19/19 02:50 0.50 mg/dL (0.1-1.2) 04/18/19 00:26 AST 30 units/L (5-40) 04/18/19 00:26 ALT 45 units/L (7-56) 04/18/19 00:26 101 units/L (35-129) 04/18/19 00:26 155 units/L (55-170) 04/18/19 10:16 CK-MB (CK-2) 4.5 ng/mL (0.0-4.0) H 04/18/19 10:16 CK-MB (CK-2) Rel Index 2.9 (0-4) 04/18/19 10:16 0.032 ng/mL (0.00-0.029) H D 04/18/19 10:16 1.50 mg/dL (0.00-1.30) H 04/18/19 12:05 5.1 g/dL (6.3-8.2) L 04/18/19 00:26 3.1 g/dL (3.9-5) L 04/18/19 00:26 1.6 % 04/18/19 00:26 Triglycerides 95 mg/dL (2-149) 04/18/19 00:26 Cholesterol 119 mg/dL (50-199) 04/18/19 00:26 59 mg/dL (50-130) 04/18/19 00:26 53 mg/dL (40-59) 04/18/19 00:26 2.24 % 04/18/19 00:26 TSH 9.560 mlU/mL (0.270-4.200) H 04/18/19 00:26 Free T4 1.13 ng/dL (0.76-1.46) 04/18/19 00:26 Yellow (Yellow) 04/18/19 09:24 Clear (Clear) 04/18/19 09:24 5.0 (5.0-7.0) 04/18/19 09:24 Ur Specific [place] 1.012 (1.003-1.030) 04/18/19 09:24 <15 mg/dl mg/dL (Negative) 04/18/19 09:24 150 mg/dL (Negative) 04/18/19 09:24 Neg mg/dL (Negative) 04/18/19 09:24 Sm (Negative) 04/18/19 09:24 Neg (Negative) 04/18/19 09:24 Neg (Negative) 04/18/19 09:24 < 2.0 mg/dL (<2.0) 04/18/19 09:24 Ur Leukocyte Esterase Neg (Negative) 04/18/19 09:24 2.0 /HPF (0.0-6.0) 04/18/19 09:24 < 1.0 /HPF (0.0-6.0) 04/18/19 09:24 U Epithel Cells (Auto) < 1.0 /HPF (0-13.0) 04/18/19 09:24 None seen (None Seen) 04/18/19 03:50 78.6 mg/dL (0.1-20.0) H 04/18/19 03:50 Protein/Creatinin Ratio 0.24 04/18/19 03:50 35 mmol/L 04/18/19 09:24 19 mg/dL (5-11.8) H 04/18/19 03:50 Salicylates < 0.3 mg/dL (2.8-20.0) L 04/18/19 00:26 Acetaminophen < 5.0 ug/mL (10.0-30.0) L 04/18/19 00:26 Plasma/Serum Alcohol < 0.01 % (0-0.07) 04/18/19 00:26 Blood Type O POSITIVE 04/18/19 00:33 Antibody Screen Negative 04/18/19 00:33 Active Medications - Current Medications Current Medications: Generic Name Dose Route Start Last Admin Trade Name Freq PRN Reason Stop Dose Admin Acetaminophen 650 mg 04/18/19 04:12 04/19/19 17:47 Tylenol PO 650 mg Q4H PRN Administration Pain MILD(1-3)/Fever >100.5/ARIAS Albuterol 2.5 mg 04/18/19 10:06 Proventil IH Q4HRT PRN Shortness Of Breath Apixaban 5 mg 04/18/19 10:00 04/20/19 09:02 Eliquis PO 5 mg Q12HR RADHA Administration Protocol Arformoterol Tartrate 15 mcg 04/18/19 12:30 04/20/19 09:14 Dannie Nebu IH 15 mcg Q12HRT RADHA Administration Atorvastatin Calcium 40 mg 04/19/19 10:00 04/20/19 09:01 Lipitor PO 40 mg DAILY RADHA Administration Benzonatate 100 mg 04/18/19 14:00 Tessalon Perles PO Q8HR PRN Cough Budesonide 0.5 mg 04/18/19 20:00 04/20/19 09:14 Pulmicort IH 0.5 mg Q12HRT RADHA Administration Dextrose 50 ml 04/18/19 04:21 D50w (25gm) Syringe IV PRN PRN Hypoglycemia Diltiazem HCl 60 mg 04/19/19 14:00 04/20/19 08:00 Cardizem PO 60 mg TID RADHA Administration Diltiazem HCl 90 mg 04/20/19 14:00 Cardizem PO Q8HR RADHA Fluoxetine HCl 10 mg 04/19/19 10:00 04/20/19 09:02 Prozac PO 10 mg QDAY RADHA Administration Hydrocortisone Sodium Succinate 50 mg 04/20/19 06:00 04/20/19 06:31 Solu-Cortef IV 04/20/19 22:01 50 mg Q8HR RADHA Administration Hydrocortisone Sodium Succinate 50 mg 04/21/19 10:00 Solu-Cortef IV 04/21/19 22:01 Q12H RADHA Phenylephrine HCl 100 mg/ 100 mls @ 3 mls/hr 04/19/19 15:00 04/20/19 09:07 Sodium Chloride IV 40 mcg/min TITR RADHA 2.4 mls/hr Titration Protocol 50 MCG/MIN Insulin Human Lispro 0 unit 04/18/19 22:00 04/20/19 07:30 Humalog SUB-Q 6 unit ACHS RADHA Administration Protocol Metoprolol Tartrate 5 mg 04/19/19 13:01 Lopressor IV Q8H PRN HR > 130 Morphine Sulfate 2 mg 04/18/19 22:27 04/19/19 08:10 Morphine IV 2 mg Q4H PRN Administration Pain, Moderate (4-6) Ondansetron HCl 4 mg 04/18/19 04:12 Zofran IV Q8H PRN Nausea And Vomiting Pantoprazole Sodium 40 mg 04/18/19 13:00 04/20/19 09:02 Protonix PO 40 mg QDAY RADHA Administration Prednisone 10 mg 04/22/19 10:00 Deltasone PO QDAY RADHA Quetiapine Fumarate 25 mg 04/18/19 22:00 04/20/19 09:03 Seroquel PO 25 mg BID RADHA Administration Sodium Chloride 10 ml 04/18/19 10:00 04/20/19 09:03 Sodium Chloride Flush Syringe 10 Ml IV 10 ml BID RADHA Administration Sodium Chloride 10 ml 04/18/19 04:12 Sodium Chloride Flush Syringe 10 Ml IV PRN PRN LINE FLUSH
--- NOTE | 2019-04-20 15:31 | Progress Note ---
Assessment and Plan Symptomatic bradycardia. Obstructive sleep apnea, untreated. Morbid obesity. History of atrial fibrillation but with a slow ventricular response. Tobacco use disorder. Cardiomyopathy. Acute hypoxemic respiratory failure. Hyperkalemia. Mild metabolic acidosis. Elevated serum troponins. History of diabetes. Acute chronic obstructive pulmonary disease exacerbation. Hyperlipidemia. Hypotension - wean off neosynephrine for target MAP >/= 65 mmHg - continue stress dose steroids with slow taper (he was on chronic prednisone therapy) - A-fib per cardiology Patient is seen today for: Seen and examined at bedside; 24hour events reviewed; nursing and respiratory care staff consulted; no adverse overnight events reported to me; - continue other care per attending / other consultants ... transfer to [facility] if stays off neosynephrine CONDITION: CRITICAL PROGNOSIS: GUARDED TO GRAVE CODE STATUS: FULL CODE The high probability of a clinically significant, sudden or life threatening deterioration of the [Neurology Respiratory, Cardiovascular] system(s) required my full and direct attention, intervention and personal management. The aggregate critical care time was [34] minutes. This time is in addition to time spent performing reported procedures but includes the following: [x] Data Review and interpretation [x] Patient assessment and monitoring of vital signs [x] Documentation Subjective Date of service: 04/20/19 Principal diagnosis: Symptomatic bradycardia; Hypotension; HUMA; A-Fib with RVR; AE-COPD Interval history: Patient is seen today for: Symptomatic bradycardia; Hypotension; Obstructive sleep apnea, untreated; Morbid obesity; Atrial fibrillation with RVR; Tobacco use disorder; Cardiomyopathy; Acute hypoxemic respiratory failure; History of diabetes; Acute chronic obstructive pulmonary disease exacerbation Seen and examined at bedside; 24hour events reviewed; nursing and respiratory care staff consulted; no adverse overnight events reported to me; resting peacefully in bed; weaning off neosynephrine and BP's holding so far; No N/V/F/C; denies acute chest pains or palpitations Objective Vital Signs - 12hr 04/20/19 04/20/19 04/20/19 03:40 03:49 03:50 Temperature 97.2 F L Pulse Rate 91 H 90 Pulse Rate [ Anterior Bilateral Throughout] Pulse Rate [ From Monitor] Respiratory 18 20 Rate Respiratory Rate [Anterior Bilateral Throughout] Blood Pressure 115/49 115/49 O2 Sat by Pulse 96 96 Oximetry 09/07/19 09/07/19 09/07/19 04:00 04:10 04:20 Temperature Pulse Rate 88 82 85 Pulse Rate [ Anterior Bilateral Throughout] Pulse Rate [ From Monitor] Respiratory 21 18 12 Rate Respiratory Rate [Anterior Bilateral Throughout] Blood Pressure 115/49 137/77 137/77 O2 Sat by Pulse 97 97 97 Oximetry 04/20/19 04/20/19 04/20/19 04:30 04:40 04:50 Temperature Pulse Rate 81 96 H 87 Pulse Rate [ Anterior Bilateral Throughout] Pulse Rate [ 92 H From Monitor] Respiratory 18 21 21 Rate Respiratory Rate [Anterior Bilateral Throughout] Blood Pressure 152/84 152/84 152/84 O2 Sat by Pulse 95 96 97 Oximetry 04/20/19 04/20/19 04/20/19 05:00 05:10 05:20 Temperature Pulse Rate 87 85 93 H Pulse Rate [ Anterior Bilateral Throughout] Pulse Rate [ From Monitor] Respiratory 14 16 12 Rate Respiratory Rate [Anterior Bilateral Throughout] Blood Pressure 152/84 163/87 163/87 O2 Sat by Pulse 98 97 97 Oximetry 04/20/19 04/20/19 04/20/19 05:30 05:40 05:50 Temperature Pulse Rate 90 94 H 93 H Pulse Rate [ Anterior Bilateral Throughout] Pulse Rate [ From Monitor] Respiratory 20 21 19 Rate Respiratory Rate [Anterior Bilateral Throughout] Blood Pressure 163/87 137/73 137/73 O2 Sat by Pulse 97 97 97 Oximetry 04/20/19 04/20/19 04/20/19 06:00 06:10 06:20 Temperature Pulse Rate 86 94 H 97 H Pulse Rate [ Anterior Bilateral Throughout] Pulse Rate [ From Monitor] Respiratory 18 17 12 Rate Respiratory Rate [Anterior Bilateral Throughout] Blood Pressure 140/87 140/87 140/87 O2 Sat by Pulse 97 97 96 Oximetry 04/20/19 04/20/19 04/20/19 06:30 06:40 06:50 Temperature Pulse Rate 80 81 92 H Pulse Rate [ Anterior Bilateral Throughout] Pulse Rate [ From Monitor] Respiratory 10 L 19 17 Rate Respiratory Rate [Anterior Bilateral Throughout] Blood Pressure 140/87 132/79 132/79 O2 Sat by Pulse 97 97 96 Oximetry 04/20/19 04/20/19 04/20/19 07:00 07:10 07:20 Temperature Pulse Rate 88 87 91 H Pulse Rate [ Anterior Bilateral Throughout] Pulse Rate [ From Monitor] Respiratory 12 18 13 Rate Respiratory Rate [Anterior Bilateral Throughout] Blood Pressure 140/84 140/84 140/84 O2 Sat by Pulse 97 93 93 Oximetry 04/20/19 04/20/19 04/20/19 07:30 07:40 07:50 Temperature Pulse Rate 90 89 92 H Pulse Rate [ Anterior Bilateral Throughout] Pulse Rate [ From Monitor] Respiratory 13 14 13 Rate Respiratory Rate [Anterior Bilateral Throughout] Blood Pressure 140/84 144/86 144/86 O2 Sat by Pulse 91 91 89 Oximetry 04/20/19 04/20/19 04/20/19 08:00 08:10 08:20 Temperature 98.0 F Pulse Rate 122 H 126 H 119 H Pulse Rate [ Anterior Bilateral Throughout] Pulse Rate [ 90 From Monitor] Respiratory 15 18 22 Rate Respiratory Rate [Anterior Bilateral Throughout] Blood Pressure 143/81 143/81 143/81 O2 Sat by Pulse 91 95 96 Oximetry 04/20/19 04/20/19 04/20/19 08:30 08:40 08:50 Temperature Pulse Rate 118 H 125 H 108 H Pulse Rate [ Anterior Bilateral Throughout] Pulse Rate [ From Monitor] Respiratory 20 21 17 Rate Respiratory Rate [Anterior Bilateral Throughout] Blood Pressure 143/81 100/60 100/60 O2 Sat by Pulse 96 96 96 Oximetry 04/20/19 04/20/19 04/20/19 09:00 09:10 09:16 Temperature Pulse Rate 109 H 107 H Pulse Rate [ 109 H Anterior Bilateral Throughout] Pulse Rate [ From Monitor] Respiratory 20 19 Rate Respiratory 12 Rate [Anterior Bilateral Throughout] Blood Pressure 100/60 130/62 O2 Sat by Pulse 96 96 97 Oximetry 04/20/19 04/20/19 04/20/19 09:20 09:30 09:40 Temperature Pulse Rate 123 H 89 116 H Pulse Rate [ Anterior Bilateral Throughout] Pulse Rate [ From Monitor] Respiratory 22 16 22 Rate Respiratory Rate [Anterior Bilateral Throughout] Blood Pressure 130/62 130/62 130/72 O2 Sat by Pulse 92 96 96 Oximetry 04/20/19 04/20/19 04/20/19 09:50 10:00 10:10 Temperature Pulse Rate 111 H 122 H 128 H Pulse Rate [ Anterior Bilateral Throughout] Pulse Rate [ From Monitor] Respiratory 19 29 H 26 H Rate Respiratory Rate [Anterior Bilateral Throughout] Blood Pressure 130/72 130/72 130/68 O2 Sat by Pulse 96 95 97 Oximetry 04/20/19 04/20/19 04/20/19 10:20 10:30 10:40 Temperature Pulse Rate 111 H 119 H 105 H Pulse Rate [ Anterior Bilateral Throughout] Pulse Rate [ From Monitor] Respiratory 19 16 19 Rate Respiratory Rate [Anterior Bilateral Throughout] Blood Pressure 130/68 130/68 102/68 O2 Sat by Pulse 96 96 96 Oximetry 04/20/19 04/20/19 04/20/19 10:50 11:00 11:10 Temperature Pulse Rate 95 H 86 88 Pulse Rate [ Anterior Bilateral Throughout] Pulse Rate [ From Monitor] Respiratory 25 H 19 18 Rate Respiratory Rate [Anterior Bilateral Throughout] Blood Pressure 102/68 105/69 105/69 O2 Sat by Pulse 95 97 96 Oximetry 04/20/19 04/20/19 04/20/19 11:20 11:30 11:40 Temperature Pulse Rate 90 92 H 79 Pulse Rate [ Anterior Bilateral Throughout] Pulse Rate [ From Monitor] Respiratory 15 16 16 Rate Respiratory Rate [Anterior Bilateral Throughout] Blood Pressure 105/69 116/64 116/64 O2 Sat by Pulse 96 95 95 Oximetry 04/20/19 04/20/19 04/20/19 11:50 12:00 12:10 Temperature 98.1 F Pulse Rate 90 88 90 Pulse Rate [ Anterior Bilateral Throughout] Pulse Rate [ 108 H From Monitor] Respiratory 17 13 16 Rate Respiratory Rate [Anterior Bilateral Throughout] Blood Pressure 116/64 129/77 129/77 O2 Sat by Pulse 96 96 93 Oximetry 04/20/19 04/20/19 04/20/19 12:20 12:30 12:40 Temperature Pulse Rate 117 H 134 H 106 H Pulse Rate [ Anterior Bilateral Throughout] Pulse Rate [ From Monitor] Respiratory 13 15 20 Rate Respiratory Rate [Anterior Bilateral Throughout] Blood Pressure 129/77 129/77 107/67 O2 Sat by Pulse 91 90 92 Oximetry 04/20/19 04/20/19 04/20/19 12:50 13:00 13:10 Temperature Pulse Rate 152 H 100 H 107 H Pulse Rate [ Anterior Bilateral Throughout] Pulse Rate [ From Monitor] Respiratory 15 24 15 Rate Respiratory Rate [Anterior Bilateral Throughout] Blood Pressure 111/57 130/89 125/77 O2 Sat by Pulse 92 95 97 Oximetry 04/20/19 04/20/19 04/20/19 13:18 13:20 13:30 Temperature Pulse Rate 136 H 119 H 141 H Pulse Rate [ Anterior Bilateral Throughout] Pulse Rate [ From Monitor] Respiratory 23 23 Rate Respiratory Rate [Anterior Bilateral Throughout] Blood Pressure 125/77 125/77 O2 Sat by Pulse 97 96 Oximetry 04/20/19 04/20/19 04/20/19 13:40 13:50 14:00 Temperature Pulse Rate 101 H 99 H 93 H Pulse Rate [ Anterior Bilateral Throughout] Pulse Rate [ From Monitor] Respiratory 19 19 13 Rate Respiratory Rate [Anterior Bilateral Throughout] Blood Pressure 135/69 125/77 125/77 O2 Sat by Pulse 96 97 98 Oximetry 04/20/19 04/20/19 04/20/19 14:10 14:20 14:30 Temperature Pulse Rate 85 96 H 89 Pulse Rate [ Anterior Bilateral Throughout] Pulse Rate [ From Monitor] Respiratory 18 17 20 Rate Respiratory Rate [Anterior Bilateral Throughout] Blood Pressure 114/66 114/66 114/66 O2 Sat by Pulse 97 94 96 Oximetry 04/20/19 04/20/19 04/20/19 14:40 14:50 15:00 Temperature Pulse Rate 100 H 85 103 H Pulse Rate [ Anterior Bilateral Throughout] Pulse Rate [ From Monitor] Respiratory 18 14 18 Rate Respiratory Rate [Anterior Bilateral Throughout] Blood Pressure 125/62 125/62 125/62 O2 Sat by Pulse 96 96 95 Oximetry 04/20/19 04/20/19 15:10 15:20 Temperature Pulse Rate 88 88 Pulse Rate [ Anterior Bilateral Throughout] Pulse Rate [ From Monitor] Respiratory 20 19 Rate Respiratory Rate [Anterior Bilateral Throughout] Blood Pressure 123/57 123/57 O2 Sat by Pulse 95 96 Oximetry Constitutional: no acute distress, alert, other (Middle aged morbidly obese CM, normocephalic abd atraumatic) Eyes: non-icteric ENT: oropharynx moist, other (mallampati 4) Neck: supple, no lymphadenopathy, no JVD, other (large neck circumference) Effort: mildly labored Ascultation: Bilateral: clear, diminished breath sounds Percussion: Bilateral: not dull Cardiovascular: irregular rhythm, other (No R/M) Gastrointestinal: normoactive bowel sounds, soft, non-tender, other (protuberant) Integumentary: normal Extremities: no cyanosis, pink and warm, pulses normal, no ischemia or petechiae, edema Neurologic: normal mental status, non-focal exam, pupils equal and round, motor strength normal and Psychiatric: mood appropriate, affect normal CBC and BMP: 04/21/19 06:20 04/21/19 06:20 ABG, PT/INR, D-dimer: ABG POC ABG pH 7.379 (7.35-7.45) 04/19/19 15:23 POC ABG pCO2 37.5 (35-45) 04/19/19 15:23 POC ABG pO2 96 (80-105) 04/19/19 15:23 POC ABG HCO3 22.1 (22-26 mml/L) 04/19/19 15:23 POC ABG Total CO2 23 (23-27mmol/L) 04/19/19 15:23 POC ABG O2 Sat 97 04/19/19 15:23 PT/INR, D-dimer PT 17.3 Sec. (12.2-14.9) H 04/19/19 02:50 INR 1.45 (0.87-1.13) H 04/19/19 02:50 Abnormal lab findings: Abnormal Labs 04/18/19 04/18/19 04/18/19 00:26 00:26 00:26 RBC Hgb Hct MCV MCH Lymph % (Auto) Lymph # Seg Neutrophils % PT 17.5 H INR 1.47 H POC ABG pH POC ABG pCO2 POC ABG pO2 Sodium 135 L Potassium 5.5 H D Chloride 96.4 L Carbon Dioxide 20 L D BUN 45 H Creatinine 3.1 H D Glucose 205 H POC Glucose Calcium 7.9 L Magnesium 1.20 L CK-MB (CK-2) Troponin T 0.052 H C-Reactive Protein Total Protein 5.1 L Albumin 3.1 L TSH Urine Creatinine Urine Total Protein Salicylates Acetaminophen 04/18/19 04/18/19 04/18/19 00:26 00:26 00:26 RBC Hgb Hct MCV MCH Lymph % (Auto) Lymph # Seg Neutrophils % PT INR POC ABG pH POC ABG pCO2 POC ABG pO2 Sodium Potassium Chloride Carbon Dioxide BUN Creatinine Glucose POC Glucose Calcium Magnesium CK-MB (CK-2) Troponin T C-Reactive Protein Total Protein Albumin TSH 9.560 H Urine Creatinine Urine Total Protein Salicylates < 0.3 L Acetaminophen < 5.0 L 04/18/19 04/18/19 04/18/19 00:30 03:50 04:31 RBC 2.52 L Hgb 8.3 L Hct 24.9 L MCV 99 H MCH 33 H Lymph % (Auto) Lymph # Seg Neutrophils % PT INR POC ABG pH POC ABG pCO2 POC ABG pO2 Sodium Potassium Chloride Carbon Dioxide BUN Creatinine Glucose POC Glucose Calcium Magnesium CK-MB (CK-2) 4.6 H Troponin T 0.042 H C-Reactive Protein Total Protein Albumin TSH Urine Creatinine 78.6 H Urine Total Protein 19 H Salicylates Acetaminophen 04/18/19 04/18/19 04/18/19 06:58 09:27 10:16 RBC Hgb Hct MCV MCH Lymph % (Auto) Lymph # Seg Neutrophils % PT INR POC ABG pH POC ABG pCO2 POC ABG pO2 Sodium Potassium Chloride Carbon Dioxide BUN Creatinine Glucose POC Glucose 200 H 205 H Calcium Magnesium CK-MB (CK-2) 4.5 H Troponin T 0.032 H D C-Reactive Protein Total Protein Albumin TSH Urine Creatinine Urine Total Protein Salicylates Acetaminophen 04/18/19 04/18/19 04/18/19 11:00 12:05 12:05 RBC Hgb Hct MCV MCH Lymph % (Auto) Lymph # Seg Neutrophils % PT INR POC ABG pH 7.250 L POC ABG pCO2 53.7 H POC ABG pO2 65 L Sodium 134 L Potassium 5.3 H Chloride 96.3 L Carbon Dioxide BUN 48 H Creatinine 3.1 H Glucose 210 H POC Glucose Calcium Magnesium 1.40 L CK-MB (CK-2) Troponin T C-Reactive Protein 1.50 H Total Protein Albumin TSH Urine Creatinine Urine Total Protein Salicylates Acetaminophen 04/18/19 04/18/19 04/18/19 12:12 17:49 21:52 RBC Hgb Hct MCV MCH Lymph % (Auto) Lymph # Seg Neutrophils % PT INR POC ABG pH POC ABG pCO2 POC ABG pO2 Sodium Potassium Chloride Carbon Dioxide BUN Creatinine Glucose POC Glucose 209 H 189 H 314 H Calcium Magnesium CK-MB (CK-2) Troponin T C-Reactive Protein Total Protein Albumin TSH Urine Creatinine Urine Total Protein Salicylates Acetaminophen 04/19/19 04/19/19 04/19/19 02:50 02:50 02:50 RBC 2.84 L 2.80 L Hgb 9.1 L 9.0 L Hct 28.0 L 27.7 L MCV 99 H 99 H MCH Lymph % (Auto) 7.2 L 7.2 L Lymph # 0.5 L 0.5 L Seg Neutrophils % 88.7 H 89.1 H PT INR POC ABG pH POC ABG pCO2 POC ABG pO2 Sodium Potassium Chloride Carbon Dioxide BUN 40 H Creatinine 2.2 H Glucose 216 H POC Glucose Calcium Magnesium CK-MB (CK-2) Troponin T C-Reactive Protein Total Protein Albumin TSH Urine Creatinine Urine Total Protein Salicylates Acetaminophen 04/19/19 04/19/19 04/19/19 02:50 07:33 11:26 RBC Hgb Hct MCV MCH Lymph % (Auto) Lymph # Seg Neutrophils % PT 17.3 H INR 1.45 H POC ABG pH POC ABG pCO2 POC ABG pO2 Sodium Potassium Chloride Carbon Dioxide BUN Creatinine Glucose POC Glucose 211 H 268 H Calcium Magnesium CK-MB (CK-2) Troponin T C-Reactive Protein Total Protein Albumin TSH Urine Creatinine Urine Total Protein Salicylates Acetaminophen 04/19/19 04/19/19 04/19/19 16:54 21:34 Unknown RBC Hgb Hct MCV MCH Lymph % (Auto) Lymph # Seg Neutrophils % PT INR POC ABG pH POC ABG pCO2 POC ABG pO2 Sodium Potassium Chloride Carbon Dioxide BUN 38 H Creatinine 2.0 H Glucose 199 H POC Glucose 349 H 353 H Calcium Magnesium CK-MB (CK-2) Troponin T C-Reactive Protein Total Protein Albumin TSH Urine Creatinine Urine Total Protein Salicylates Acetaminophen 04/20/19 04/20/19 04/20/19 07:42 11:53 Unknown RBC 2.61 L Hgb 8.6 L Hct 25.7 L MCV 99 H MCH 33 H Lymph % (Auto) 12.5 L Lymph # 1.1 L Seg Neutrophils % 80.6 H PT INR POC ABG pH POC ABG pCO2 POC ABG pO2 Sodium Potassium Chloride Carbon Dioxide BUN Creatinine Glucose POC Glucose 266 H 292 H Calcium Magnesium CK-MB (CK-2) Troponin T C-Reactive Protein Total Protein Albumin TSH Urine Creatinine Urine Total Protein Salicylates Acetaminophen 04/20/19 Unknown RBC Hgb Hct MCV MCH Lymph % (Auto) Lymph # Seg Neutrophils % PT INR POC ABG pH POC ABG pCO2 POC ABG pO2 Sodium 136 L Potassium Chloride Carbon Dioxide BUN 33 H Creatinine Glucose 293 H POC Glucose Calcium 8.2 L Magnesium CK-MB (CK-2) Troponin T C-Reactive Protein Total Protein Albumin TSH Urine Creatinine Urine Total Protein Salicylates Acetaminophen Allied health notes reviewed: nursing
[2019-04-20] MEDS: TESSALON PERLES PO PRN (21:05)
[2019-04-20] MEDS: TYLENOL PO PRN (21:08)
[2019-04-20] MEDS ORDERED: LANTUS SUB-Q SCH (22:00)
[2019-04-20] MEDS: MORPHINE IV PRN (23:20)
[2019-04-21 06:51] LABS: Basophils % (Auto) 0.5 % (0.0-1.8); Eosinophils % (Auto) 0.4 % (0.0-4.3); Hemoglobin 8.7 gm/dl (11.8-15.2); Lymphocytes # (Auto) 1.4 K/mm3 (1.2-5.4); Mean Corpuscular HGB Conc 34 % (32-34); Mean Corpuscular Volume 99 fl (84-94); Monocytes # (Auto) 0.4 K/mm3 (0.0-0.8); Monocytes % (Auto) 6.8 % (0.0-7.3); Platelet Count 187 K/mm3 (140-440); Red Blood Count 2.64 M/mm3 (3.65-5.03); Red Cell Distribution Width 15.1 % (13.2-15.2)
[2019-04-21 06:54] LABS: BUN/Creatinine Ratio 19; Blood Urea Nitrogen 23 mg/dL (9-20); Calcium 8.6 mg/dL (8.4-10.2); Hemolysis Index 8
--- NOTE | 2019-04-21 08:31 | Progress Note ---
Assessment and Plan Assessment and plan: 58-year-old male with multiple medical problems, hypertension, diabetes, depression, hyperlipidemia, COPD, A. fib, chronic kidney disease, obesity comes emergency room feeling dizzy. Patient stated his symptoms started shortly after taking his night medications, which include calcium channel alexandro and a beta alexandro, also stated that he felt hot. In the emergency room he was hypotensive, bradycardic, I saw the patient his heart rate was 34. He was given hydrocortisone, Synthroid, cefepime, treated for hyperkalemia * Discontinue levophed and started on dopamine drip currently been weaned off patient still remains in A. fib * Was also started on neosynephrin, now weaned off * Right ankle xray: severe to moderate difffuse subcutaneous edema * Patient non complaint with CPAP, counselling provided * still with uncontrolled AFIB Symptomatic Bradycardia Hypotension secondary to the above Osteoathritis of right ankle-outpatient ortho Renal failure, acute on chronic with vasomotor nephropathy- resolved Hyperkalemia Atrial Fibrillation with RVr Abnormal cardiac enzymes Anemia Diabetes and mellitus Depression Secondary coagulopathy secondary to Eliquis hyperlipidemia COPD A. fib HUMA obesity Plan Continue supportive Transfer to Telemetry Defer Repeat Echo to cardiology cardiology adjusting antiarrhythmics Continue oral anticoagulation Adjust night time lantus Gradual steroids taper, patient chronically on outaptient steroid Case discussed with customer operations intern will continue to monitor give kayexlate, follow potassium Fingersticks initiate insulin sliding scale DVT prophylaxis Continue HOSPITAL CARE DUE TO ONCONTROLLED HR History Interval history: Patient seen and examined, reports improvement with no acute distress. HR still uncontrolled, otherwise no new complaints, still refusing BIPAP use Hospitalist Physical - Physical exam Narrative exam: VITAL SIGNS: Reviewed. Morbidly obese GENERAL: The patient appears normally developed, Vital signs as documented. HEAD: No signs of head trauma. EYES: Pupils are equal. Extraocular motions intact. EARS: Hearing grossly intact. MOUTH: Oropharynx is normal. NECK: No adenopathy, no JVD. Large and short neck size CHEST: Chest with clear breath sounds bilaterally. No wheezes, rales, or rhonchi. CARDIAC: Irregularly regular rate and rhythm. S1 and S2, without murmurs, gallops, or rubs. VASCULAR: trace Edema. Peripheral pulses normal and equal in all extremities. ABDOMEN: Soft, non tender and non distended. No rebound or guarding, and no masses palpated. Bowel Sounds normal. MUSCULOSKELETAL: Good range of motion of all major joints. Extremities without clubbing, cyanosis. trace bilateral edema. NEUROLOGIC EXAM: Alert and oriented x 3 No focal sensory or strength deficits. Speech normal. Follows commands. PSYCHIATRIC: Mood normal. SKIN: detail exam as documented in skin assessment - Constitutional Vitals: Temp Pulse Resp BP Pulse Ox 97.8 F 132 H 28 H 119/78 91 04/21/19 04:00 04/21/19 06:00 04/21/19 06:00 04/21/19 06:00 04/21/19 06:00 General appearance: Present: no acute distress Results - Labs CBC & Chem 7: 04/21/19 06:20 04/21/19 06:20 Labs: Laboratory Last Values WBC 6.5 K/mm3 (4.5-11.0) 04/21/19 06:20 RBC 2.64 M/mm3 (3.65-5.03) L 04/21/19 06:20 Hgb 8.7 gm/dl (11.8-15.2) L 04/21/19 06:20 Hct 26.0 % (35.5-45.6) L 04/21/19 06:20 MCV 99 fl (84-94) H 04/21/19 06:20 MCH 33 pg (28-32) H 04/21/19 06:20 MCHC 34 % (32-34) 04/21/19 06:20 RDW 15.1 % (13.2-15.2) 04/21/19 06:20 Plt Count 187 K/mm3 (140-440) 04/21/19 06:20 Lymph % (Auto) 21.0 % (13.4-35.0) 04/21/19 06:20 [place] % (Auto) 6.8 % (0.0-7.3) 04/21/19 06:20 Eos % (Auto) 0.4 % (0.0-4.3) 04/21/19 06:20 Baso % (Auto) 0.5 % (0.0-1.8) 04/21/19 06:20 Lymph # 1.4 K/mm3 (1.2-5.4) 04/21/19 06:20 [place] # 0.4 K/mm3 (0.0-0.8) 04/21/19 06:20 Eos # 0.0 K/mm3 (0.0-0.4) 04/21/19 06:20 Baso # 0.0 K/mm3 (0.0-0.1) 04/21/19 06:20 Seg Neutrophils % 71.3 % (40.0-70.0) H 04/21/19 06:20 Seg Neutrophils # 4.6 K/mm3 (1.8-7.7) 04/21/19 06:20 PT 17.3 Sec. (12.2-14.9) H 04/19/19 02:50 INR 1.45 (0.87-1.13) H 04/19/19 02:50 POC ABG pH 7.379 (7.35-7.45) 04/19/19 15:23 POC ABG pCO2 37.5 (35-45) 04/19/19 15:23 POC ABG pO2 96 (80-105) 04/19/19 15:23 POC ABG HCO3 22.1 (22-26 mml/L) 04/19/19 15:23 POC ABG Total CO2 23 (23-27mmol/L) 04/19/19 15:23 POC ABG O2 Sat 97 04/19/19 15:23 POC ABG Base Excess -3 ((-2) - (+3)mmol/L) 04/19/19 15:23 3 % 04/19/19 15:23 Sodium 138 mmol/L (137-145) 04/21/19 06:20 Potassium 4.3 mmol/L (3.6-5.0) 04/21/19 06:20 Chloride 99.7 mmol/L (98-107) 04/21/19 06:20 Carbon Dioxide 27 mmol/L (22-30) 04/21/19 06:20 16 mmol/L 04/21/19 06:20 BUN 23 mg/dL (9-20) H 04/21/19 06:20 1.2 mg/dL (0.8-1.5) 04/21/19 06:20 Estimated GFR > 60 ml/min 04/21/19 06:20 19 % 04/21/19 06:20 Glucose 204 mg/dL (75-100) H 04/21/19 06:20 POC Glucose 207 (70-105) H 04/21/19 07:46 Lactic Acid 1.50 mmol/L (0.7-2.0) 04/18/19 03:17 Calcium 8.6 mg/dL (8.4-10.2) 04/21/19 06:20 Magnesium 1.80 mg/dL (1.7-2.3) 04/19/19 02:50 0.50 mg/dL (0.1-1.2) 04/18/19 00:26 AST 30 units/L (5-40) 04/18/19 00:26 ALT 45 units/L (7-56) 04/18/19 00:26 101 units/L (35-129) 04/18/19 00:26 155 units/L (55-170) 04/18/19 10:16 CK-MB (CK-2) 4.5 ng/mL (0.0-4.0) H 04/18/19 10:16 CK-MB (CK-2) Rel Index 2.9 (0-4) 04/18/19 10:16 0.032 ng/mL (0.00-0.029) H D 04/18/19 10:16 1.50 mg/dL (0.00-1.30) H 04/18/19 12:05 5.1 g/dL (6.3-8.2) L 04/18/19 00:26 3.1 g/dL (3.9-5) L 04/18/19 00:26 1.6 % 04/18/19 00:26 Triglycerides 95 mg/dL (2-149) 04/18/19 00:26 Cholesterol 119 mg/dL (50-199) 04/18/19 00:26 59 mg/dL (50-130) 04/18/19 00:26 53 mg/dL (40-59) 04/18/19 00:26 2.24 % 04/18/19 00:26 TSH 9.560 mlU/mL (0.270-4.200) H 04/18/19 00:26 Free T4 1.13 ng/dL (0.76-1.46) 04/18/19 00:26 Yellow (Yellow) 04/18/19 09:24 Clear (Clear) 04/18/19 09:24 5.0 (5.0-7.0) 04/18/19 09:24 Ur Specific [place] 1.012 (1.003-1.030) 04/18/19 09:24 <15 mg/dl mg/dL (Negative) 04/18/19 09:24 150 mg/dL (Negative) 04/18/19 09:24 Neg mg/dL (Negative) 04/18/19 09:24 Sm (Negative) 04/18/19 09:24 Neg (Negative) 04/18/19 09:24 Neg (Negative) 04/18/19 09:24 < 2.0 mg/dL (<2.0) 04/18/19 09:24 Ur Leukocyte Esterase Neg (Negative) 04/18/19 09:24 2.0 /HPF (0.0-6.0) 04/18/19 09:24 < 1.0 /HPF (0.0-6.0) 04/18/19 09:24 U Epithel Cells (Auto) < 1.0 /HPF (0-13.0) 04/18/19 09:24 None seen (None Seen) 04/18/19 03:50 78.6 mg/dL (0.1-20.0) H 04/18/19 03:50 Protein/Creatinin Ratio 0.24 04/18/19 03:50 35 mmol/L 04/18/19 09:24 19 mg/dL (5-11.8) H 04/18/19 03:50 Salicylates < 0.3 mg/dL (2.8-20.0) L 04/18/19 00:26 Acetaminophen < 5.0 ug/mL (10.0-30.0) L 04/18/19 00:26 Plasma/Serum Alcohol < 0.01 % (0-0.07) 04/18/19 00:26 Blood Type O POSITIVE 04/18/19 00:33 Antibody Screen Negative 04/18/19 00:33 Active Medications - Current Medications Current Medications: Generic Name Dose Route Start Last Admin Trade Name Freq PRN Reason Stop Dose Admin Acetaminophen 650 mg 04/18/19 04:12 04/20/19 21:08 Tylenol PO 650 mg Q4H PRN Administration Pain MILD(1-3)/Fever >100.5/ARIAS Albuterol 2.5 mg 04/18/19 10:06 Proventil IH Q4HRT PRN Shortness Of Breath Apixaban 5 mg 04/18/19 10:00 04/20/19 21:06 Eliquis PO 5 mg Q12HR RADHA Administration Protocol Arformoterol Tartrate 15 mcg 04/18/19 12:30 04/20/19 19:34 Brovana Nebu IH 15 mcg Q12HRT RADHA Administration Atorvastatin Calcium 40 mg 04/19/19 10:00 04/20/19 09:01 Lipitor PO 40 mg DAILY RADHA Administration Benzonatate 100 mg 04/18/19 14:00 04/20/19 21:05 Tessalon Perles PO 100 mg Q8HR PRN Administration Cough Budesonide 0.5 mg 04/18/19 20:00 04/20/19 19:34 Pulmicort IH 0.5 mg Q12HRT RADHA Administration Dextrose 50 ml 04/18/19 04:21 D50w (25gm) Syringe IV PRN PRN Hypoglycemia Diltiazem HCl 90 mg 04/20/19 14:00 04/20/19 21:06 Cardizem PO 90 mg Q8HR RADHA Administration Fluoxetine HCl 10 mg 04/19/19 10:00 04/20/19 09:02 Prozac PO 10 mg QDAY RADHA Administration Hydrocortisone Sodium Succinate 50 mg 04/21/19 10:00 Solu-Cortef IV 04/21/19 22:01 Q12H RADHA Phenylephrine HCl 100 mg/ 100 mls @ 3 mls/hr 04/19/19 15:00 04/20/19 11:30 Sodium Chloride IV 0 mcg/min TITR RADHA 0 mls/hr Titration Protocol 50 MCG/MIN Insulin Glargine 16 units 04/21/19 08:29 Lantus SUB-Q QHS RADHA Insulin Human Lispro 0 unit 04/18/19 22:00 04/20/19 21:29 Humalog SUB-Q 6 unit ACHS RADHA Administration Protocol Metoprolol Tartrate 5 mg 04/19/19 13:01 Lopressor IV Q8H PRN HR > 130 Morphine Sulfate 2 mg 04/18/19 22:27 04/20/19 23:20 Morphine IV 2 mg Q4H PRN Administration Pain, Moderate (4-6) Ondansetron HCl 4 mg 04/18/19 04:12 Zofran IV Q8H PRN Nausea And Vomiting Pantoprazole Sodium 40 mg 04/18/19 13:00 04/20/19 09:02 Protonix PO 40 mg QDAY RADHA Administration Prednisone 10 mg 04/22/19 10:00 Deltasone PO QDAY RADHA Quetiapine Fumarate 25 mg 04/18/19 22:00 04/20/19 21:20 Seroquel PO 25 mg BID RADHA Administration Sodium Chloride 10 ml 04/18/19 10:00 04/20/19 21:08 Sodium Chloride Flush Syringe 10 Ml IV 10 ml BID RADHA Administration Sodium Chloride 10 ml 04/18/19 04:12 Sodium Chloride Flush Syringe 10 Ml IV PRN PRN LINE FLUSH
[2019-04-21] MEDS: PULMICORT IH SCH ×2 (08:36→20:37)
[2019-04-21] MEDS: BROVANA NEBU IH SCH ×2 (08:36→20:37)
[2019-04-21] MEDS: CARDIZEM PO SCH ×2 (08:45→16:59)
[2019-04-21] MEDS: HumaLOG SUB-Q SCH ×4 (08:46→21:53)
--- NOTE | 2019-04-21 09:45 | Progress Note ---
Assessment and Plan Hypotension secondary to bradycardia, on Dopamine Acute renal failure, likely prerenal azotemia but cannot rule ischemic ATN Hyperkalemia status post Kayexelate diabetes A. fib on Eliquis - renal US negative for obstruction - K normalized - kidney function cont to improve, may consider lasix if BP remains stable for BLE edema - renally dose meds - strict I&O - daily weight Odin Erazo MD [phone] Subjective Date of service: 04/21/19 Principal diagnosis: Symptomatic bradycardia; Hypotension; HUMA; A-Fib with RVR; AE-COPD Interval history: feels better, denies acute issues Objective - Vital Signs Vital signs: Vital Signs - 12hr 04/20/19 04/20/19 04/20/19 22:00 23:00 23:18 Temperature Pulse Rate 107 H 86 86 Pulse Rate [ Anterior Bilateral Throughout] Pulse Rate [ From Monitor] Respiratory 19 21 Rate Respiratory Rate [Anterior Bilateral Throughout] Blood Pressure 126/74 138/57 O2 Sat by Pulse 97 93 Oximetry 04/20/19 04/20/19 04/20/19 23:20 23:34 23:50 Temperature 97.6 F Pulse Rate 87 Pulse Rate [ Anterior Bilateral Throughout] Pulse Rate [ From Monitor] Respiratory 22 19 Rate Respiratory Rate [Anterior Bilateral Throughout] Blood Pressure 138/57 O2 Sat by Pulse 97 Oximetry 04/21/19 04/21/19 04/21/19 00:00 01:00 02:00 Temperature Pulse Rate 77 85 77 Pulse Rate [ Anterior Bilateral Throughout] Pulse Rate [ 77 From Monitor] Respiratory 20 18 13 Rate Respiratory Rate [Anterior Bilateral Throughout] Blood Pressure 138/57 118/72 118/72 O2 Sat by Pulse 97 98 97 Oximetry 04/21/19 04/21/19 04/21/19 03:00 03:57 04:00 Temperature 97.8 F Pulse Rate 80 88 Pulse Rate [ Anterior Bilateral Throughout] Pulse Rate [ 92 H From Monitor] Respiratory 19 16 14 Rate Respiratory Rate [Anterior Bilateral Throughout] Blood Pressure 118/72 O2 Sat by Pulse 93 98 99 Oximetry 04/21/19 04/21/19 04/21/19 05:00 06:00 08:00 Temperature 98.1 F Pulse Rate 104 H 132 H Pulse Rate [ Anterior Bilateral Throughout] Pulse Rate [ From Monitor] Respiratory 18 28 H Rate Respiratory Rate [Anterior Bilateral Throughout] Blood Pressure 119/78 119/78 O2 Sat by Pulse 100 91 Oximetry 04/21/19 04/21/19 04/21/19 08:37 08:41 08:45 Temperature Pulse Rate 116 H Pulse Rate [ 117 H Anterior Bilateral Throughout] Pulse Rate [ From Monitor] Respiratory Rate Respiratory 18 Rate [Anterior Bilateral Throughout] Blood Pressure 124/79 O2 Sat by Pulse 94 Oximetry - General Appearance General appearance: well-developed, well-nourished, obese EENT: ATNC, PERRL, mucous membranes moist Neck: no JVD, no carotid bruit Respiratory: Present: Clear to Ascultation. Absent: Rales, [place] Cardiology: regular, S1S2 Gastrointestinal: normoactive bowel sounds Integumentary: no rash, warm and dry Neurologic: no focal deficit, no asterixis, alert and oriented x3 Musculoskeletal: other (1+ pitting edema in BLE) Psychiatric: mood/affect appropriate, cooperative - Lab 04/21/19 06:20 04/21/19 06:20 Most recent lab results Calcium 8.6 mg/dL (8.4-10.2) 04/21/19 06:20 Magnesium 1.80 mg/dL (1.7-2.3) 04/19/19 02:50 78.6 mg/dL (0.1-20.0) H 04/18/19 03:50 35 mmol/L 04/18/19 09:24 19 mg/dL (5-11.8) H 04/18/19 03:50 Medications & Allergies - Medications Allergies/Adverse Reactions: Allergies No Known Allergies Allergy (Unverified 08/21/14 12:00) Home Medications: Home Medications Medication Instructions Recorded Confirmed Last Taken Type ALBUTEROL Inhaler (OR & NICU) 2 puff IH QID PRN 03/29/19 04/18/19 04/17/19 History [ProAir HFA Inhaler] Glimepiride [Amaryl] 2 mg PO BID 03/29/19 04/18/19 04/17/19 History Metformin HCl [metFORMIN] 1,000 mg PO BID 03/29/19 04/18/19 04/17/19 History Pantoprazole [Protonix TAB] 40 mg PO QDAY 03/29/19 04/18/19 04/17/19 History ALBUTEROL NEB's [Proventil 0.083% 2.5 mg IH Q4HRT PRN #60 nebu 04/14/19 04/18/19 04/17/19 Rx NEBS] Apixaban [Eliquis] 5 mg PO BID #60 tablet 04/14/19 04/18/19 04/17/19 Rx AtorvaSTATin [Lipitor] 40 mg PO DAILY #30 tablet 04/14/19 04/18/19 04/16/19 Rx Benzonatate [Tessalon Perles] 100 mg PO Q8HR #14 capsule 04/14/19 04/18/19 04/16/19 Rx FLUoxetine HCL [Prozac] 10 mg PO QDAY #30 capsule 04/14/19 04/18/19 04/17/19 Rx Ipratropium/Albuterol Sulfate 1 ampul IH TIDRT #90 ampul.neb 04/14/19 04/18/19 04/17/19 Rx [DUONEB *Not for PRN Use*] Metoprolol [Lopressor TAB] 50 mg PO BID #60 tablet 04/14/19 04/18/19 04/17/19 Rx QUEtiapine [SEROquel] 25 mg PO BID #60 tablet 04/14/19 04/18/19 04/16/19 Rx Tiotropium [place] [Spiriva 4 gm IH QDAY #1 mist.inhal 04/14/19 04/18/19 9 Rx Respimat] dilTIAZem CD [Cardizem CD] 300 mg PO QDAY #30 capsule 04/14/19 04/18/19 04/17/19 Rx predniSONE [Deltasone] 10 mg PO QDAY #2 tablet 04/14/19 04/18/19 04/17/19 Rx Active Medications: Generic Name Dose Route Start Last Admin Trade Name Freq PRN Reason Stop Dose Admin Acetaminophen 650 mg 04/18/19 04:12 04/20/19 21:08 Tylenol PO 650 mg Q4H PRN Administration Pain MILD(1-3)/Fever >100.5/ARIAS Albuterol 2.5 mg 04/18/19 10:06 Proventil IH Q4HRT PRN Shortness Of Breath Apixaban 5 mg 04/18/19 10:00 04/20/19 21:06 Eliquis PO 5 mg Q12HR RADHA Administration Protocol Arformoterol Tartrate 15 mcg 04/18/19 12:30 04/21/19 08:36 Brovana Nebu IH 15 mcg Q12HRT RADHA Administration Atorvastatin Calcium 40 mg 04/19/19 10:00 04/20/19 09:01 Lipitor PO 40 mg DAILY RADHA Administration Benzonatate 100 mg 04/18/19 14:00 04/20/19 21:05 Tessalon Perles PO 100 mg Q8HR PRN Administration Cough Budesonide 0.5 mg 04/18/19 20:00 04/21/19 08:36 Pulmicort IH 0.5 mg Q12HRT RADHA Administration Dextrose 50 ml 04/18/19 04:21 D50w (25gm) Syringe IV PRN PRN Hypoglycemia Diltiazem HCl 90 mg 04/20/19 14:00 04/21/19 08:45 Cardizem PO 90 mg Q8HR RADHA Administration Fluoxetine HCl 10 mg 04/19/19 10:00 04/20/19 09:02 Prozac PO 10 mg QDAY RADHA Administration Hydrocortisone Sodium Succinate 50 mg 04/21/19 10:00 Solu-Cortef IV 04/21/19 22:01 Q12H RADHA Phenylephrine HCl 100 mg/ 100 mls @ 3 mls/hr 04/19/19 15:00 04/20/19 11:30 Sodium Chloride IV 0 mcg/min TITR RADHA 0 mls/hr Titration Protocol 50 MCG/MIN Insulin Glargine 16 units 04/21/19 22:00 Lantus SUB-Q QHS RADHA Insulin Human Lispro 0 unit 04/18/19 22:00 04/21/19 08:46 Humalog SUB-Q 4 unit ACHS RADHA Administration Protocol Metoprolol Tartrate 5 mg 04/19/19 13:01 Lopressor IV Q8H PRN HR > 130 Morphine Sulfate 2 mg 04/18/19 22:27 04/20/19 23:20 Morphine IV 2 mg Q4H PRN Administration Pain, Moderate (4-6) Ondansetron HCl 4 mg 04/18/19 04:12 Zofran IV Q8H PRN Nausea And Vomiting Pantoprazole Sodium 40 mg 04/18/19 13:00 04/20/19 09:02 Protonix PO 40 mg QDAY RADHA Administration Prednisone 10 mg 04/22/19 10:00 Deltasone PO QDAY RADHA Quetiapine Fumarate 25 mg 04/18/19 22:00 04/20/19 21:20 Seroquel PO 25 mg BID RADHA Administration Sodium Chloride 10 ml 04/18/19 10:00 04/20/19 21:08 Sodium Chloride Flush Syringe 10 Ml IV 10 ml BID RADHA Administration Sodium Chloride 10 ml 04/18/19 04:12 Sodium Chloride Flush Syringe 10 Ml IV PRN PRN LINE FLUSH
[2019-04-21] MEDS: SODIUM CHLORIDE FLUSH SYRINGE 10 ML IV SCH ×2 (10:09→23:28)
[2019-04-21] MEDS: PROzac PO SCH (10:09)
[2019-04-21] MEDS: PROTONIX PO SCH (10:09)
[2019-04-21] MEDS: ELIQUIS PO SCH ×2 (10:16→21:49)
--- NOTE | 2019-04-21 14:05 | Progress Note ---
Assessment and Plan Patient is intermittently in RVR. Will increase diltiazem to 90 mg q6 hours and add amiodarone 200 mg BID. Continue other cardiac management. The patient has been seen in conjunction with Dr. Lawton, who agrees with the assessment and plan. - Patient Problems (1) Atrial fibrillation with RVR Current Visit: No Status: Acute (2) Hypotension Current Visit: Yes Status: Resolved (3) Symptomatic sinus bradycardia Current Visit: Yes Status: Resolved (4) COPD (chronic obstructive pulmonary disease) Current Visit: Yes Status: Chronic (5) Diabetes Current Visit: Yes Status: Chronic (6) Obesity Current Visit: Yes Status: Chronic (7) Sleep apnea Current Visit: Yes Status: Chronic (8) Renal failure Current Visit: No Status: Acute Qualifiers: Renal failure chronicity: acute Acute renal failure type: unspecified Qualified Code(s): N17.9 - Acute kidney failure, unspecified (9) Respiratory distress Current Visit: No Status: Resolved (10) HTN (hypertension) Current Visit: No Status: Chronic Subjective Date of service: 04/21/19 Principal diagnosis: Symptomatic bradycardia; Hypotension; HUMA; A-Fib with RVR; AE-COPD Interval history: The patient is sitting in a chair in NAD. Intermittent RVR noted on telemetry. Objective Last Vital Signs Temp 97.5 F L 04/21/19 12:00 Pulse 86 04/21/19 13:00 Resp 19 04/21/19 13:00 BP 111/78 04/21/19 13:00 Pulse Ox 91 04/21/19 13:00 - Physical Examination General: No Apparent Distress HEENT: Positive: PERRL, Normocephaly, Mucus Membranes Moist Neck: Positive: neck supple, trachea midline Cardiac: Positive: irregularly irregular Neuro: Positive: Grossly Intact Abdomen: Positive: Unremarkable. Negative: Tender /Rectal: Other (deferred) Skin: Positive: Clear. Negative: Rash Musculoskeletal: No Pain Extremities: Present: normal. Absent: edema - Labs and Meds CBC 04/21/19 Range/Units 06:20 WBC 6.5 (4.5-11.0) K/mm3 RBC 2.64 L (3.65-5.03) M/mm3 Hgb 8.7 L (11.8-15.2) gm/dl Hct 26.0 L (35.5-45.6) % Plt Count 187 (140-440) K/mm3 Lymph # 1.4 (1.2-5.4) K/mm3 [place] # 0.4 (0.0-0.8) K/mm3 Eos # 0.0 (0.0-0.4) K/mm3 Baso # 0.0 (0.0-0.1) K/mm3 Comprehensive Metabolic Panel 04/21/19 Range/Units 06:20 Sodium 138 (137-145) mmol/L Potassium 4.3 (3.6-5.0) mmol/L Chloride 99.7 (98-107) mmol/L Carbon Dioxide 27 (22-30) mmol/L BUN 23 H (9-20) mg/dL Creatinine 1.2 (0.8-1.5) mg/dL Glucose 204 H (75-100) mg/dL Calcium 8.6 (8.4-10.2) mg/dL - Imaging and Cardiology EKG: image reviewed Echo: report reviewed (03/2019: EF 55-60%, abnormal left ventricular diastolic function) - EKG Sinus rhythms and dysrhythmias: sinus bradycardia - Allied health notes Allied health notes reviewed: nursing
[2019-04-21] MEDS: MORPHINE IV PRN (14:51)
--- NOTE | 2019-04-21 15:33 | Progress Note ---
Assessment and Plan Symptomatic bradycardia. Obstructive sleep apnea, untreated. Morbid obesity. History of atrial fibrillation but with a slow ventricular response. Tobacco use disorder. Cardiomyopathy. Acute hypoxemic respiratory failure. Hyperkalemia. Mild metabolic acidosis. Elevated serum troponins. History of diabetes. Acute chronic obstructive pulmonary disease exacerbation. Hyperlipidemia. Hypotension - continue stress dose steroids with slow taper (he was on chronic prednisone therapy) - A-fib per cardiology - begin metoprolol 5 mg I.V. q6h prn pulse > 130/min - again encouraged BIPAP use - again stressed tobacco abstinence - GI & VTE prophylaxis - continue bronchodilators (LABS & KELECHI) with pulmonary hygiene per RT - supplemental O2 as needed to keep O2 sats > 90% - continue accuchecks with glycemic control per SSI for target blood glucose 140-180 mg/dL - continue mobility protocols / off loading for pressure ulcer prevention - fall precautions - continue other care per attending / other consultants CODE STATUS: FULL CODE Subjective Date of service: 04/21/19 Principal diagnosis: Symptomatic bradycardia; Hypotension; HUMA; A-Fib with RVR; AE-COPD Interval history: Patient is seen today for: Symptomatic bradycardia; Hypotension; Obstructive sleep apnea, untreated; Morbid obesity; Atrial fibrillation with RVR; Tobacco use disorder; Cardiomyopathy; Acute hypoxemic respiratory failure; History of di abetes; Acute chronic obstructive pulmonary disease exacerbation Seen and examined at bedside; 24hour events reviewed; nursing and respiratory care staff consulted; no adverse overnight events reported to me; resting peacefully in bed; Objective Vital Signs - 12hr 04/21/19 04/21/19 04/21/19 03:57 04:00 05:00 Temperature 97.8 F Pulse Rate 88 104 H Pulse Rate [ Anterior Bilateral Throughout] Pulse Rate [ 92 H From Monitor] Respiratory 16 14 18 Rate Respiratory Rate [Anterior Bilateral Throughout] Blood Pressure 119/78 O2 Sat by Pulse 98 99 100 Oximetry 04/21/19 04/21/19 04/21/19 06:00 07:00 08:00 Temperature 98.1 F Pulse Rate 132 H 83 86 Pulse Rate [ Anterior Bilateral Throughout] Pulse Rate [ 116 H From Monitor] Respiratory 28 H 19 21 Rate Respiratory Rate [Anterior Bilateral Throughout] Blood Pressure 119/78 119/78 119/78 O2 Sat by Pulse 91 92 98 Oximetry 04/21/19 04/21/19 04/21/19 08:37 08:41 08:45 Temperature Pulse Rate 116 H Pulse Rate [ 117 H Anterior Bilateral Throughout] Pulse Rate [ From Monitor] Respiratory Rate Respiratory 18 Rate [Anterior Bilateral Throughout] Blood Pressure 124/79 O2 Sat by Pulse 94 Oximetry 04/21/19 04/21/19 04/21/19 09:00 10:00 11:00 Temperature Pulse Rate 128 H 120 H 129 H Pulse Rate [ Anterior Bilateral Throughout] Pulse Rate [ From Monitor] Respiratory 21 24 24 Rate Respiratory Rate [Anterior Bilateral Throughout] Blood Pressure 124/79 124/79 124/79 O2 Sat by Pulse 96 98 97 Oximetry 04/21/19 04/21/19 12:00 13:00 Temperature 97.5 F L Pulse Rate 94 H 86 Pulse Rate [ Anterior Bilateral Throughout] Pulse Rate [ 96 H From Monitor] Respiratory 17 19 Rate Respiratory Rate [Anterior Bilateral Throughout] Blood Pressure 142/66 111/78 O2 Sat by Pulse 96 91 Oximetry Constitutional: no acute distress, alert, other (Middle aged morbidly obese CM, normocephalic abd atraumatic) Eyes: non-icteric ENT: oropharynx moist, other (mallampati 4) Neck: supple, no lymphadenopathy, no JVD, other (large neck circumference) Effort: mildly labored Ascultation: Bilateral: clear, diminished breath sounds Percussion: Bilateral: not dull Cardiovascular: irregular rhythm, other (No R/M) Gastrointestinal: normoactive bowel sounds, soft, non-tender, other (protuberant) Integumentary: normal Extremities: no cyanosis, pink and warm, pulses normal, no ischemia or petechiae, edema Neurologic: normal mental status, non-focal exam, pupils equal and round, motor strength normal and Psychiatric: mood appropriate, affect normal CBC and BMP: 04/21/19 06:20 04/21/19 06:20 ABG, PT/INR, D-dimer: ABG POC ABG pH 7.379 (7.35-7.45) 04/19/19 15:23 POC ABG pCO2 37.5 (35-45) 04/19/19 15:23 POC ABG pO2 96 (80-105) 04/19/19 15:23 POC ABG HCO3 22.1 (22-26 mml/L) 04/19/19 15:23 POC ABG Total CO2 23 (23-27mmol/L) 04/19/19 15:23 POC ABG O2 Sat 97 04/19/19 15:23 PT/INR, D-dimer PT 17.3 Sec. (12.2-14.9) H 04/19/19 02:50 INR 1.45 (0.87-1.13) H 04/19/19 02:50 Abnormal lab findings: Abnormal Labs 04/18/19 04/18/19 04/18/19 00:26 00:26 00:26 RBC Hgb Hct MCV MCH Lymph % (Auto) Lymph # Seg Neutrophils % PT 17.5 H INR 1.47 H POC ABG pH POC ABG pCO2 POC ABG pO2 Sodium 135 L Potassium 5.5 H D Chloride 96.4 L Carbon Dioxide 20 L D BUN 45 H Creatinine 3.1 H D Glucose 205 H POC Glucose Calcium 7.9 L Magnesium 1.20 L CK-MB (CK-2) Troponin T 0.052 H C-Reactive Protein Total Protein 5.1 L Albumin 3.1 L TSH Urine Creatinine Urine Total Protein Salicylates Acetaminophen 04/18/19 04/18/19 04/18/19 00:26 00:26 00:26 RBC Hgb Hct MCV MCH Lymph % (Auto) Lymph # Seg Neutrophils % PT INR POC ABG pH POC ABG pCO2 POC ABG pO2 Sodium Potassium Chloride Carbon Dioxide BUN Creatinine Glucose POC Glucose Calcium Magnesium CK-MB (CK-2) Troponin T C-Reactive Protein Total Protein Albumin TSH 9.560 H Urine Creatinine Urine Total Protein Salicylates < 0.3 L Acetaminophen < 5.0 L 04/18/19 04/18/19 04/18/19 00:30 03:50 04:31 RBC 2.52 L Hgb 8.3 L Hct 24.9 L MCV 99 H MCH 33 H Lymph % (Auto) Lymph # Seg Neutrophils % PT INR POC ABG pH POC ABG pCO2 POC ABG pO2 Sodium Potassium Chloride Carbon Dioxide BUN Creatinine Glucose POC Glucose Calcium Magnesium CK-MB (CK-2) 4.6 H Troponin T 0.042 H C-Reactive Protein Total Protein Albumin TSH Urine Creatinine 78.6 H Urine Total Protein 19 H Salicylates Acetaminophen 04/18/19 04/18/19 04/18/19 06:58 09:27 10:16 RBC Hgb Hct MCV MCH Lymph % (Auto) Lymph # Seg Neutrophils % PT INR POC ABG pH POC ABG pCO2 POC ABG pO2 Sodium Potassium Chloride Carbon Dioxide BUN Creatinine Glucose POC Glucose 200 H 205 H Calcium Magnesium CK-MB (CK-2) 4.5 H Troponin T 0.032 H D C-Reactive Protein Total Protein Albumin TSH Urine Creatinine Urine Total Protein Salicylates Acetaminophen 04/18/19 04/18/19 04/18/19 11:00 12:05 12:05 RBC Hgb Hct MCV MCH Lymph % (Auto) Lymph # Seg Neutrophils % PT INR POC ABG pH 7.250 L POC ABG pCO2 53.7 H POC ABG pO2 65 L Sodium 134 L Potassium 5.3 H Chloride 96.3 L Carbon Dioxide BUN 48 H Creatinine 3.1 H Glucose 210 H POC Glucose Calcium Magnesium 1.40 L CK-MB (CK-2) Troponin T C-Reactive Protein 1.50 H Total Protein Albumin TSH Urine Creatinine Urine Total Protein Salicylates Acetaminophen 04/18/19 04/18/19 04/18/19 12:12 17:49 21:52 RBC Hgb Hct MCV MCH Lymph % (Auto) Lymph # Seg Neutrophils % PT INR POC ABG pH POC ABG pCO2 POC ABG pO2 Sodium Potassium Chloride Carbon Dioxide BUN Creatinine Glucose POC Glucose 209 H 189 H 314 H Calcium Magnesium CK-MB (CK-2) Troponin T C-Reactive Protein Total Protein Albumin TSH Urine Creatinine Urine Total Protein Salicylates Acetaminophen 04/19/19 04/19/19 04/19/19 02:50 02:50 02:50 RBC 2.84 L 2.80 L Hgb 9.1 L 9.0 L Hct 28.0 L 27.7 L MCV 99 H 99 H MCH Lymph % (Auto) 7.2 L 7.2 L Lymph # 0.5 L 0.5 L Seg Neutrophils % 88.7 H 89.1 H PT INR POC ABG pH POC ABG pCO2 POC ABG pO2 Sodium Potassium Chloride Carbon Dioxide BUN 40 H Creatinine 2.2 H Glucose 216 H POC Glucose Calcium Magnesium CK-MB (CK-2) Troponin T C-Reactive Protein Total Protein Albumin TSH Urine Creatinine Urine Total Protein Salicylates Acetaminophen 04/19/19 04/19/19 04/19/19 02:50 07:33 11:26 RBC Hgb Hct MCV MCH Lymph % (Auto) Lymph # Seg Neutrophils % PT 17.3 H INR 1.45 H POC ABG pH POC ABG pCO2 POC ABG pO2 Sodium Potassium Chloride Carbon Dioxide BUN Creatinine Glucose POC Glucose 211 H 268 H Calcium Magnesium CK-MB (CK-2) Troponin T C-Reactive Protein Total Protein Albumin TSH Urine Creatinine Urine Total Protein Salicylates Acetaminophen 04/19/19 04/19/19 04/19/19 16:54 21:34 Unknown RBC Hgb Hct MCV MCH Lymph % (Auto) Lymph # Seg Neutrophils % PT INR POC ABG pH POC ABG pCO2 POC ABG pO2 Sodium Potassium Chloride Carbon Dioxide BUN 38 H Creatinine 2.0 H Glucose 199 H POC Glucose 349 H 353 H Calcium Magnesium CK-MB (CK-2) Troponin T C-Reactive Protein Total Protein Albumin TSH Urine Creatinine Urine Total Protein Salicylates Acetaminophen 04/20/19 04/20/19 04/20/19 07:42 11:53 16:08 RBC Hgb Hct MCV MCH Lymph % (Auto) Lymph # Seg Neutrophils % PT INR POC ABG pH POC ABG pCO2 POC ABG pO2 Sodium Potassium Chloride Carbon Dioxide BUN Creatinine Glucose POC Glucose 266 H 292 H 269 H Calcium Magnesium CK-MB (CK-2) Troponin T C-Reactive Protein Total Protein Albumin TSH Urine Creatinine Urine Total Protein Salicylates Acetaminophen 04/20/19 04/20/19 04/20/19 21:32 Unknown Unknown RBC 2.61 L Hgb 8.6 L Hct 25.7 L MCV 99 H MCH 33 H Lymph % (Auto) 12.5 L Lymph # 1.1 L Seg Neutrophils % 80.6 H PT INR POC ABG pH POC ABG pCO2 POC ABG pO2 Sodium 136 L Potassium Chloride Carbon Dioxide BUN 33 H Creatinine Glucose 293 H POC Glucose 282 H Calcium 8.2 L Magnesium CK-MB (CK-2) Troponin T C-Reactive Protein Total Protein Albumin TSH Urine Creatinine Urine Total Protein Salicylates Acetaminophen 04/21/19 04/21/19 04/21/19 06:20 06:20 07:46 RBC 2.64 L Hgb 8.7 L Hct 26.0 L MCV 99 H MCH 33 H Lymph % (Auto) Lymph # Seg Neutrophils % 71.3 H PT INR POC ABG pH POC ABG pCO2 POC ABG pO2 Sodium Potassium Chloride Carbon Dioxide BUN 23 H Creatinine Glucose 204 H POC Glucose 207 H Calcium Magnesium CK-MB (CK-2) Troponin T C-Reactive Protein Total Protein Albumin TSH Urine Creatinine Urine Total Protein Salicylates Acetaminophen 04/21/19 11:47 RBC Hgb Hct MCV MCH Lymph % (Auto) Lymph # Seg Neutrophils % PT INR POC ABG pH POC ABG pCO2 POC ABG pO2 Sodium Potassium Chloride Carbon Dioxide BUN Creatinine Glucose POC Glucose 219 H Calcium Magnesium CK-MB (CK-2) Troponin T C-Reactive Protein Total Protein Albumin TSH Urine Creatinine Urine Total Protein Salicylates Acetaminophen Allied health notes reviewed: nursing
[2019-04-21] MEDS: CORDARONE PO SCH (21:48)
[2019-04-21] MEDS: LANTUS SUB-Q SCH (23:26)
[2019-04-22] MEDS: CARDIZEM PO SCH ×4 (04:08→19:03)
[2019-04-22] MEDS: BROVANA NEBU IH SCH ×2 (08:01→21:15)
[2019-04-22] MEDS: PULMICORT IH SCH ×2 (08:01→21:15)
[2019-04-22] MEDS: HumaLOG SUB-Q SCH ×4 (08:34→22:19)
[2019-04-22] MEDS: PROTONIX PO SCH (11:11)
[2019-04-22] MEDS: DELTASONE PO SCH (11:11)
[2019-04-22] MEDS: ELIQUIS PO SCH ×2 (11:11→22:19)
[2019-04-22] MEDS: CORDARONE PO SCH (11:11)
--- NOTE | 2019-04-22 11:39 | Progress Note ---
Assessment and Plan Hypotension secondary to bradycardia, on Dopamine Acute renal failure, likely prerenal azotemia but cannot rule ischemic ATN Hyperkalemia status post Kayexelate diabetes A. fib on Eliquis - BMP is pending from this AM - Torsemide 10 mg qday PO ordered - renally dose meds - strict I&O - daily weight Odin Erazo MD [phone] Subjective Date of service: 04/22/19 Principal diagnosis: Symptomatic bradycardia; Hypotension; HUMA; A-Fib with RVR; AE-COPD Interval history: denies acute issues, concerned about swelling in legs Objective - Vital Signs Vital signs: Vital Signs - 12hr 04/22/19 04/22/19 04/22/19 03:43 04:51 07:56 Temperature 98.4 F 97.9 F Pulse Rate 79 87 Pulse Rate [ Anterior Bilateral Throughout] Respiratory 18 18 Rate Respiratory Rate [Anterior Bilateral Throughout] Blood Pressure 118/65 132/83 O2 Sat by Pulse 94 95 Oximetry 04/22/19 08:01 Temperature Pulse Rate Pulse Rate [ 71 Anterior Bilateral Throughout] Respiratory Rate Respiratory 20 Rate [Anterior Bilateral Throughout] Blood Pressure O2 Sat by Pulse 95 Oximetry - General Appearance General appearance: well-developed, well-nourished, obese EENT: ATNC, PERRL, mucous membranes moist Neck: no JVD, no carotid bruit Respiratory: Present: Clear to Ascultation. Absent: Rales, Ronchi Cardiology: regular, S1S2 Gastrointestinal: normoactive bowel sounds, no tenderness, no distended, obese Integumentary: no rash, warm and dry Neurologic: no focal deficit, no asterixis, alert and oriented x3 Musculoskeletal: other (2+ pitting edema in BLE) Psychiatric: mood/affect appropriate, cooperative - Lab 04/21/19 06:20 04/21/19 06:20 Most recent lab results Calcium 8.6 mg/dL (8.4-10.2) 04/21/19 06:20 Magnesium 1.80 mg/dL (1.7-2.3) 04/19/19 02:50 78.6 mg/dL (0.1-20.0) H 04/18/19 03:50 35 mmol/L 04/18/19 09:24 19 mg/dL (5-11.8) H 04/18/19 03:50 Medications & Allergies - Medications Allergies/Adverse Reactions: Allergies No Known Allergies Allergy (Unverified 08/21/14 12:00) Home Medications: Home Medications Medication Instructions Recorded Confirmed Last Taken Type ALBUTEROL Inhaler (OR & NICU) 2 puff IH QID PRN 03/29/19 04/18/19 04/17/19 History [ProAir HFA Inhaler] Glimepiride [Amaryl] 2 mg PO BID 03/29/19 04/18/19 04/17/19 History Metformin HCl [metFORMIN] 1,000 mg PO BID 03/29/19 04/18/19 04/17/19 History Pantoprazole [Protonix TAB] 40 mg PO QDAY 03/29/19 04/18/19 04/17/19 History ALBUTEROL NEB's [Proventil 0.083% 2.5 mg IH Q4HRT PRN #60 nebu 04/14/19 04/18/19 04/17/19 Rx NEBS] Apixaban [Eliquis] 5 mg PO BID #60 tablet 04/14/19 04/18/19 04/17/19 Rx AtorvaSTATin [Lipitor] 40 mg PO DAILY #30 tablet 04/14/19 04/18/19 04/16/19 Rx Benzonatate [Tessalon Perles] 100 mg PO Q8HR #14 capsule 04/14/19 04/18/19 04/16/19 Rx FLUoxetine HCL [Prozac] 10 mg PO QDAY #30 capsule 04/14/19 04/18/19 04/17/19 Rx Ipratropium/Albuterol Sulfate 1 ampul IH TIDRT #90 ampul.neb 04/14/19 04/18/19 04/17/19 Rx [DUONEB *Not for PRN Use*] Metoprolol [Lopressor TAB] 50 mg PO BID #60 tablet 04/14/19 04/18/19 04/17/19 Rx QUEtiapine [SEROquel] 25 mg PO BID #60 tablet 04/14/19 04/18/19 04/16/19 Rx Tiotropium [place] [Spiriva 4 gm IH QDAY #1 mist.inhal 04/14/19 04/18/19 04/17/19 Rx Respimat] dilTIAZem CD [Cardizem CD] 300 mg PO QDAY #30 capsule 04/14/19 04/18/19 04/17/19 Rx predniSONE [Deltasone] 10 mg PO QDAY #2 tablet 04/14/19 04/18/19 04/17/19 Rx Active Medications: Generic Name Dose Route Start Last Admin Trade Name Freq PRN Reason Stop Dose Admin Acetaminophen 650 mg 04/18/19 04:12 04/20/19 21:08 Tylenol PO 650 mg Q4H PRN Administration Pain MILD(1-3)/Fever >100.5/ARIAS Albuterol 2.5 mg 04/18/19 10:06 Proventil IH Q4HRT PRN Shortness Of Breath Amiodarone HCl 200 mg 04/21/19 22:00 04/22/19 11:11 Cordarone PO 200 mg BID RADHA Administration Apixaban 5 mg 04/18/19 10:00 04/22/19 11:11 Eliquis PO 5 mg Q12HR RADHA Administration Protocol Arformoterol Tartrate 15 mcg 04/18/19 12:30 04/22/19 08:01 Brovana Nebu IH 15 mcg Q12HRT RADHA Administration Atorvastatin Calcium 40 mg 04/19/19 10:00 04/22/19 11:11 Lipitor PO 40 mg DAILY RADHA Administration Benzonatate 100 mg 04/18/19 14:00 04/20/19 21:05 Tessalon Perles PO 100 mg Q8HR PRN Administration Cough Budesonide 0.5 mg 04/18/19 20:00 04/22/19 08:01 Pulmicort IH 0.5 mg Q12HRT RADHA Administration Dextrose 50 ml 04/18/19 04:21 D50w (25gm) Syringe IV PRN PRN Hypoglycemia Diltiazem HCl 90 mg 04/21/19 18:00 04/22/19 11:10 Cardizem PO 90 mg Q6HR RADHA Administration Fluoxetine HCl 10 mg 04/19/19 10:00 04/21/19 10:09 Prozac PO 10 mg QDAY RADHA Administration Insulin Glargine 16 units 04/21/19 22:00 04/21/19 23:26 Lantus SUB-Q 16 units QHS RADHA Administration Insulin Human Lispro 0 unit 04/18/19 22:00 04/21/19 21:53 Humalog SUB-Q 6 unit ACHS RADHA Administration Protocol Metoprolol Tartrate 5 mg 04/19/19 13:01 Lopressor IV Q8H PRN HR > 130 Morphine Sulfate 2 mg 04/18/19 22:27 04/21/19 14:51 Morphine IV 2 mg Q4H PRN Administration Pain, Moderate (4-6) Ondansetron HCl 4 mg 04/18/19 04:12 Zofran IV Q8H PRN Nausea And Vomiting Pantoprazole Sodium 40 mg 04/18/19 13:00 04/22/19 11:11 Protonix PO 40 mg QDAY RADHA Administration Prednisone 10 mg 04/22/19 10:00 04/22/19 11:11 Deltasone PO 10 mg QDAY RADHA Administration Quetiapine Fumarate 25 mg 04/18/19 22:00 04/22/19 11:11 Seroquel PO 25 mg BID RADHA Administration Sodium Chloride 10 ml 04/18/19 10:00 04/21/19 23:28 Sodium Chloride Flush Syringe 10 Ml IV 10 ml BID RADHA Administration Sodium Chloride 10 ml 04/18/19 04:12 04/21/19 14:51 Sodium Chloride Flush Syringe 10 Ml IV 10 ml PRN PRN Administration LINE FLUSH Torsemide 10 mg 04/22/19 12:00 Demadex PO QDAY RADHA
--- NOTE | 2019-04-22 13:28 | Progress Note ---
Assessment and Plan Tele reviewed - in AFib with HR 80s currently, AFib with SVR with pause of 3.7 sec noted overnight. D/c PO amio and cont PO cardizem with hold parameters. Of note, pt has HUMA and is noncompliant with CPAP which could be contributing to bradyarrhythmias. Compliance with CPAP encouraged. Currently receiving PO torsemide 10mg daily per nephrology although pt feels as though he needs additional diuresis d/t leg swelling and SOB. BMP from today pending. Will defer volume optimization to nephrology. THS noted to be elevated - further eval/management per primary. Cont Eliquis. Anemia noted. Pt declining further GI intervention at this time. The patient has been seen in conjunction with Dr. Simon Morin who agrees with the assessment and plan of care. - Patient Problems (1) Paroxysmal atrial fibrillation with RVR Current Visit: Yes Status: Acute (2) Atrial fibrillation with slow ventricular response Current Visit: Yes Status: Resolved (3) Symptomatic sinus bradycardia Current Visit: Yes Status: Resolved (4) Hypotension Current Visit: Yes Status: Resolved (5) Acute renal failure Current Visit: Yes Status: Acute (6) Hyperkalemia Current Visit: Yes Status: Acute (7) Hypomagnesemia Current Visit: Yes Status: Acute (8) COPD (chronic obstructive pulmonary disease) Current Visit: Yes Status: Chronic (9) Sleep apnea Current Visit: Yes Status: Chronic (10) Diabetes Current Visit: Yes Status: Chronic (11) Obesity Current Visit: Yes Status: Chronic (12) History of ETOH abuse Current Visit: Yes Status: Chronic (13) Anemia Current Visit: Yes Status: Acute Subjective Date of service: 04/22/19 Principal diagnosis: Symptomatic bradycardia; Hypotension; HUMA; A-Fib with RVR; AE-COPD Interval history: pt ambulating around unit with PT, states he is feeling better although he believes he "needs lasix" due to leg swelling and SOB. tele reviewed - in AFib with HR 80s currently, AFib with SVR with pause of 3.7 sec noted overnight. Objective Last Vital Signs Temp 98.6 F 04/22/19 11:57 Pulse 79 04/22/19 11:57 Resp 20 04/22/19 11:57 BP 103/59 04/22/19 11:57 Pulse Ox 91 04/22/19 11:57 - Physical Examination General: No Apparent Distress HEENT: Positive: PERRL, Normocephaly, Mucus Membranes Moist Neck: Positive: neck supple, trachea midline Cardiac: Positive: irregularly irregular, S1/S2 Lungs: Positive: Decreased Breath Sounds Neuro: Positive: Grossly Intact Abdomen: Positive: Unremarkable. Negative: Tender /Rectal: Other (deferred) Skin: Positive: Clear. Negative: Rash Musculoskeletal: No Pain Extremities: Present: normal. Absent: edema - Imaging and Cardiology EKG: image reviewed Echo: report reviewed (03/2019: EF 55-60%, abnormal left ventricular diastolic function) - EKG Sinus rhythms and dysrhythmias: sinus bradycardia - Allied health notes Allied health notes reviewed: nursing
--- NOTE | 2019-04-22 13:41 | Progress Note ---
Assessment and Plan Assessment and plan: 58-year-old male with multiple medical problems, hypertension, diabetes, depression, hyperlipidemia, COPD, A. fib, chronic kidney disease, obesity comes emergency room feeling dizzy. Patient stated his symptoms started shortly after taking his night medications, which include calcium channel alexandro and a beta alexandro, also stated that he felt hot. In the emergency room he was hypotensive, bradycardic, I saw the patient his heart rate was 34. He was given hydrocortisone, Synthroid, cefepime, treated for hyperkalemia * Discontinue levophed and started on dopamine drip currently been weaned off patient still remains in A. fib * Was also started on neosynephrin, now weaned off * Right ankle xray: severe to moderate difffuse subcutaneous edema * Patient non complaint with CPAP, counselling provided * still with uncontrolled AFIB, CARDIOLOGY STILL ADJUSTING MEDS * Start on diuresis with improvement on renal function, Symptomatic Bradycardia Hypotension secondary to the above Osteoathritis of right ankle-outpatient Ortho Renal failure, acute on chronic with vasomotor nephropathy- resolved Hyperkalemia Atrial Fibrillation with RVr Abnormal cardiac enzymes Anemia Diabetes and mellitus Depression Secondary coagulopathy secondary to Eliquis hyperlipidemia COPD A. fib HUMA obesity Plan Continue supportive Transfer to Telemetry Defer Repeat Echo to cardiology cardiology adjusting antiarrhythmics Continue oral anticoagulation DIURESIS STARTED Adjust night time lantus Gradual steroids taper, patient chronically on outpatient steroid Case discussed with webmethods architect will continue to monitor give kayexlate, follow potassium Fingersticks initiate insulin sliding scale DVT prophylaxis Continue HOSPITAL CARE DUE TO uNCONTROLLED HR History Interval history: Patient seen and examined, reports improvement with no acute distress. HR still uncontrolled, 3.6 sec pause noted and still with RVR. otherwise no new complaints, still refusing BIPAP use Hospitalist Physical - Physical exam Narrative exam: VITAL SIGNS: Reviewed. Morbidly obese GENERAL: The patient appears normally developed, Vital signs as documented. HEAD: No signs of head trauma. EYES: Pupils are equal. Extraocular motions intact. EARS: Hearing grossly intact. MOUTH: Oropharynx is normal. NECK: No adenopathy, no JVD. Large and short neck size CHEST: Chest with clear breath sounds bilaterally. No wheezes, rales, or rhonchi. CARDIAC: Irregularly regular rate and rhythm. S1 and S2, without murmurs, gallops, or rubs. VASCULAR: 1+ bilaterall upper and lower Edema. Peripheral pulses normal and eq ual in all extremities. ABDOMEN: Soft, non tender and non distended. No rebound or guarding, and no masses palpated. Bowel Sounds normal. MUSCULOSKELETAL: Good range of motion of all major joints. Extremities without clubbing, cyanosis. 1+ bilateral edema. NEUROLOGIC EXAM: Alert and oriented x 3 No focal sensory or strength deficits. Speech normal. Follows commands. PSYCHIATRIC: Mood normal. SKIN: detail exam as documented in skin assessment - Constitutional Vitals: Temp Pulse Resp BP Pulse Ox 98.6 F 79 20 103/59 91 04/22/19 11:57 04/22/19 11:57 04/22/19 11:57 04/22/19 11:57 04/22/19 11:57 General appearance: Present: no acute distress Results - Labs CBC & Chem 7: 04/21/19 06:20 04/21/19 06:20 Labs: Laboratory Last Values WBC 6.5 K/mm3 (4.5-11.0) 04/21/19 06:20 RBC 2.64 M/mm3 (3.65-5.03) L 04/21/19 06:20 Hgb 8.7 gm/dl (11.8-15.2) L 04/21/19 06:20 Hct 26.0 % (35.5-45.6) L 04/21/19 06:20 MCV 99 fl (84-94) H 04/21/19 06:20 MCH 33 pg (28-32) H 04/21/19 06:20 MCHC 34 % (32-34) 04/21/19 06:20 RDW 15.1 % (13.2-15.2) 04/21/19 06:20 Plt Count 187 K/mm3 (140-440) 04/21/19 06:20 Lymph % (Auto) 21.0 % (13.4-35.0) 04/21/19 06:20 [place] % (Auto) 6.8 % (0.0-7.3) 04/21/19 06:20 Eos % (Auto) 0.4 % (0.0-4.3) 04/21/19 06:20 Baso % (Auto) 0.5 % (0.0-1.8) 04/21/19 06:20 Lymph # 1.4 K/mm3 (1.2-5.4) 04/21/19 06:20 [place] # 0.4 K/mm3 (0.0-0.8) 04/21/19 06:20 Eos # 0.0 K/mm3 (0.0-0.4) 04/21/19 06:20 Baso # 0.0 K/mm3 (0.0-0.1) 04/21/19 06:20 Seg Neutrophils % 71.3 % (40.0-70.0) H 04/21/19 06:20 Seg Neutrophils # 4.6 K/mm3 (1.8-7.7) 04/21/19 06:20 PT 17.3 Sec. (12.2-14.9) H 04/19/19 02:50 INR 1.45 (0.87-1.13) H 04/19/19 02:50 POC ABG pH 7.379 (7.35-7.45) 04/19/19 15:23 POC ABG pCO2 37.5 (35-45) 04/19/19 15:23 POC ABG pO2 96 (80-105) 04/19/19 15:23 POC ABG HCO3 22.1 (22-26 mml/L) 04/19/19 15:23 POC ABG Total CO2 23 (23-27mmol/L) 04/19/19 15:23 POC ABG O2 Sat 97 04/19/19 15:23 POC ABG Base Excess -3 ((-2) - (+3)mmol/L) 04/19/19 15:23 3 % 04/19/19 15:23 Sodium 138 mmol/L (137-145) 04/21/19 06:20 Potassium 4.3 mmol/L (3.6-5.0) 04/21/19 06:20 Chloride 99.7 mmol/L (98-107) 04/21/19 06:20 Carbon Dioxide 27 mmol/L (22-30) 04/21/19 06:20 16 mmol/L 04/21/19 06:20 BUN 23 mg/dL (9-20) H 04/21/19 06:20 1.2 mg/dL (0.8-1.5) 04/21/19 06:20 Estimated GFR > 60 ml/min 04/21/19 06:20 19 % 04/21/19 06:20 Glucose 204 mg/dL (75-100) H 04/21/19 06:20 POC Glucose 214 (70-105) H 04/22/19 12:02 Lactic Acid 1.50 mmol/L (0.7-2.0) 04/18/19 03:17 Calcium 8.6 mg/dL (8.4-10.2) 04/21/19 06:20 Magnesium 1.80 mg/dL (1.7-2.3) 04/19/19 02:50 0.50 mg/dL (0.1-1.2) 04/18/19 00:26 AST 30 units/L (5-40) 04/18/19 00:26 ALT 45 units/L (7-56) 04/18/19 00:26 101 units/L (35-129) 04/18/19 00:26 155 units/L (55-170) 04/18/19 10:16 CK-MB (CK-2) 4.5 ng/mL (0.0-4.0) H 04/18/19 10:16 CK-MB (CK-2) Rel Index 2.9 (0-4) 04/18/19 10:16 0.032 ng/mL (0.00-0.029) H D 04/18/19 10:16 1.50 mg/dL (0.00-1.30) H 04/18/19 12:05 5.1 g/dL (6.3-8.2) L 04/18/19 00:26 3.1 g/dL (3.9-5) L 04/18/19 00:26 1.6 % 04/18/19 00:26 Triglycerides 95 mg/dL (2-149) 04/18/19 00:26 Cholesterol 119 mg/dL (50-199) 04/18/19 00:26 59 mg/dL (50-130) 04/18/19 00:26 53 mg/dL (40-59) 04/18/19 00:26 2.24 % 04/18/19 00:26 TSH 9.560 mlU/mL (0.270-4.200) H 04/18/19 00:26 Free T4 1.13 ng/dL (0.76-1.46) 04/18/19 00:26 Yellow (Yellow) 04/18/19 09:24 Clear (Clear) 04/18/19 09:24 5.0 (5.0-7.0) 04/18/19 09:24 Ur Specific [place] 1.012 (1.003-1.030) 04/18/19 09:24 <15 mg/dl mg/dL (Negative) 04/18/19 09:24 150 mg/dL (Negative) 04/18/19 09:24 Neg mg/dL (Negative) 04/18/19 09:24 Sm (Negative) 04/18/19 09:24 Neg (Negative) 04/18/19 09:24 Neg (Negative) 04/18/19 09:24 < 2.0 mg/dL (<2.0) 04/18/19 09:24 Ur Leukocyte Esterase Neg (Negative) 04/18/19 09:24 2.0 /HPF (0.0-6.0) 04/18/19 09:24 < 1.0 /HPF (0.0-6.0) 04/18/19 09:24 U Epithel Cells (Auto) < 1.0 /HPF (0-13.0) 04/18/19 09:24 None seen (None Seen) 04/18/19 03:50 78.6 mg/dL (0.1-20.0) H 04/18/19 03:50 Protein/Creatinin Ratio 0.24 04/18/19 03:50 35 mmol/L 04/18/19 09:24 19 mg/dL (5-11.8) H 04/18/19 03:50 Salicylates < 0.3 mg/dL (2.8-20.0) L 04/18/19 00:26 Acetaminophen < 5.0 ug/mL (10.0-30.0) L 04/18/19 00:26 Plasma/Serum Alcohol < 0.01 % (0-0.07) 04/18/19 00:26 Blood Type O POSITIVE 04/18/19 00:33 Antibody Screen Negative 04/18/19 00:33 Active Medications - Current Medications Current Medications: Generic Name Dose Route Start Last Admin Trade Name Devonte PRN Reason Stop Dose Admin Acetaminophen 650 mg 04/18/19 04:12 04/20/19 21:08 Tylenol PO 650 mg Q4H PRN Administration Pain MILD(1-3)/Fever >100.5/ARIAS Albuterol 2.5 mg 04/18/19 10:06 Proventil IH Q4HRT PRN Shortness Of Breath Apixaban 5 mg 04/18/19 10:00 04/22/19 11:11 Eliquis PO 5 mg Q12HR RADHA Administration Protocol Arformoterol Tartrate 15 mcg 04/18/19 12:30 04/22/19 08:01 Brovana Nebu IH 15 mcg Q12HRT RADHA Administration Atorvastatin Calcium 40 mg 04/19/19 10:00 04/22/19 11:11 Lipitor PO 40 mg DAILY RADHA Administration Benzonatate 100 mg 04/18/19 14:00 04/20/19 21:05 Tessalon Perles PO 100 mg Q8HR PRN Administration Cough Budesonide 0.5 mg 04/18/19 20:00 04/22/19 08:01 Pulmicort IH 0.5 mg Q12HRT RADHA Administration Dextrose 50 ml 04/18/19 04:21 D50w (25gm) Syringe IV PRN PRN Hypoglycemia Diltiazem HCl 90 mg 04/21/19 18:00 04/22/19 11:10 Cardizem PO 90 mg Q6HR RDAHA Administration Fluoxetine HCl 10 mg 04/19/19 10:00 04/21/19 10:09 Prozac PO 10 mg QDAY RADHA Administration Insulin Glargine 16 units 04/21/19 22:00 04/21/19 23:26 Lantus SUB-Q 16 units QHS RADHA Administration Insulin Human Lispro 0 unit 04/18/19 22:00 04/21/19 21:53 Humalog SUB-Q 6 unit ACHS RADHA Administration Protocol Metoprolol Tartrate 5 mg 04/19/19 13:01 Lopressor IV Q8H PRN HR > 130 Morphine Sulfate 2 mg 04/18/19 22:27 04/21/19 14:51 Morphine IV 2 mg Q4H PRN Administration Pain, Moderate (4-6) Ondansetron HCl 4 mg 04/18/19 04:12 Zofran IV Q8H PRN Nausea And Vomiting Pantoprazole Sodium 40 mg 04/18/19 13:00 04/22/19 11:11 Protonix PO 40 mg QDAY RADHA Administration Prednisone 10 mg 04/22/19 10:00 04/22/19 11:11 Deltasone PO 10 mg QDAY RADHA Administration Quetiapine Fumarate 25 mg 04/18/19 22:00 04/22/19 11:11 Seroquel PO 25 mg BID RADHA Administration Sodium Chloride 10 ml 04/18/19 10:00 04/21/19 23:28 Sodium Chloride Flush Syringe 10 Ml IV 10 ml BID RADHA Administration Sodium Chloride 10 ml 04/18/19 04:12 04/21/19 14:51 Sodium Chloride Flush Syringe 10 Ml IV 10 ml PRN PRN Administration LINE FLUSH Torsemide 10 mg 04/22/19 13:00 Demadex PO QDAY RADHA
[2019-04-22] MEDS: DEMADEX PO SCH (14:42)
[2019-04-22] MEDS: TESSALON PERLES PO PRN (14:42)
[2019-04-22 15:56] LABS: Basophils # (Auto) 0.1 K/mm3 (0.0-0.1); Basophils % (Auto) 0.6 % (0.0-1.8); Eosinophils % (Auto) 0.5 % (0.0-4.3); Hematocrit 27.9 % (35.5-45.6); Hemoglobin 9.3 gm/dl (11.8-15.2); Lymphocytes # (Auto) 0.7 K/mm3 (1.2-5.4); Lymphocytes % (Auto) 8.3 % (13.4-35.0); Mean Corpuscular HGB Conc 33 % (32-34); Mean Corpuscular Volume 99 fl (84-94); Monocytes # (Auto) 0.5 K/mm3 (0.0-0.8); Monocytes % (Auto) 6.2 % (0.0-7.3); Platelet Count 236 K/mm3 (140-440); Red Blood Count 2.83 M/mm3 (3.65-5.03); Red Cell Distribution Width 15.5 % (13.2-15.2)
--- NOTE | 2019-04-22 18:23 | Progress Note ---
Assessment and Plan Patient alert and awake. Patient morbidly obese. No complaint of chest pain, SOB, or cough at this time. Patient is on RA. O2 saturation 99% on room air. Patient has history of sleep apnea. BIPAP standby in the room. - Patient Problems (1) COPD exacerbation Current Visit: No Status: Acute Plan to address problem: Continue Prednisone. O2 2L NC. Albuterol/Atrovent aerosol treatments. Continue apixaban. Continue protonix. (2) Morbid obesity with BMI of 40.0-44.9, adult Current Visit: Yes Status: Acute Plan to address problem: Recommend to lose weight. Recommend exercise and diet. (3) TEGAN (acute kidney injury) Current Visit: Yes Status: Acute Plan to address problem: Management as per nephrology. (4) Paroxysmal atrial fibrillation with RVR Current Visit: Yes Status: Acute Plan to address problem: Patient on apixaban. Management as per cardiology. (5) Diabetes Current Visit: Yes Status: Chronic Plan to address problem: Management as per primary care. (6) History of ETOH abuse Current Visit: Yes Status: Chronic Plan to address problem: Management as per primary care. (7) Sleep apnea Current Visit: Yes Status: Chronic Plan to address problem: Continue CPAP. (8) HTN (hypertension) Current Visit: No Status: Chronic Plan to address problem: Management as per primary care. Subjective Date of service: 04/22/19 Principal diagnosis: Symptomatic bradycardia; Hypotension; HUMA; A-Fib with RVR; AE-COPD Interval history: Patient alert and awake. Patient morbidly obese. No complaint of chest pain, SOB, or cough at this time. Patient is on RA. O2 saturation 99% on room air. Patient has history of sleep apnea. BIPAP standby in the room. Objective Vital Signs - 12hr 04/22/19 04/22/19 04/22/19 07:56 08:01 10:00 Temperature 97.9 F Pulse Rate 87 Pulse Rate [ 71 Anterior Bilateral Throughout] Respiratory 18 26 H Rate Respiratory 20 Rate [Anterior Bilateral Throughout] Blood Pressure 132/83 O2 Sat by Pulse 95 95 96 Oximetry 04/22/19 04/22/19 04/22/19 11:57 14:57 16:39 Temperature 98.6 F 98.2 F Pulse Rate 79 79 92 H Pulse Rate [ Anterior Bilateral Throughout] Respiratory 20 20 Rate Respiratory Rate [Anterior Bilateral Throughout] Blood Pressure 103/59 114/67 O2 Sat by Pulse 91 99 Oximetry Constitutional: no acute distress, alert, other (Middle aged morbidly obese CM, normocephalic abd atraumatic) Eyes: non-icteric ENT: oropharynx moist, other (mallampati 4) Neck: supple, no lymphadenopathy, no JVD, other (large neck circumference) Effort: mildly labored Ascultation: Bilateral: diminished breath sounds Percussion: Bilateral: not dull Cardiovascular: irregular rhythm, other (No R/M) Gastrointestinal: normoactive bowel sounds, soft, non-tender, other (protuberant) Integumentary: normal Extremities: no cyanosis, pink and warm, pulses normal, no ischemia or petechiae, edema Neurologic: normal mental status, non-focal exam, pupils equal and round, motor strength normal and Psychiatric: mood appropriate, affect normal CBC and BMP: 04/22/19 15:16 04/21/19 06:20 ABG, PT/INR, D-dimer: ABG POC ABG pH 7.379 (7.35-7.45) 04/19/19 15:23 POC ABG pCO2 37.5 (35-45) 04/19/19 15:23 POC ABG pO2 96 (80-105) 04/19/19 15:23 POC ABG HCO3 22.1 (22-26 mml/L) 04/19/19 15:23 POC ABG Total CO2 23 (23-27mmol/L) 04/19/19 15:23 POC ABG O2 Sat 97 04/19/19 15:23 PT/INR, D-dimer PT 17.3 Sec. (12.2-14.9) H 04/19/19 02:50 INR 1.45 (0.87-1.13) H 04/19/19 02:50 Abnormal lab findings: Abnormal Labs 04/18/19 04/18/19 04/18/19 00:26 00:26 00:26 RBC Hgb Hct MCV MCH RDW Lymph % (Auto) Lymph # Seg Neutrophils % PT 17.5 H INR 1.47 H POC ABG pH POC ABG pCO2 POC ABG pO2 Sodium 135 L Potassium 5.5 H D Chloride 96.4 L Carbon Dioxide 20 L D BUN 45 H Creatinine 3.1 H D Glucose 205 H POC Glucose Calcium 7.9 L Magnesium 1.20 L CK-MB (CK-2) Troponin T 0.052 H C-Reactive Protein Total Protein 5.1 L Albumin 3.1 L TSH Urine Creatinine Urine Total Protein Salicylates Acetaminophen 04/18/19 04/18/19 04/18/19 00:26 00:26 00:26 RBC Hgb Hct MCV MCH RDW Lymph % (Auto) Lymph # Seg Neutrophils % PT INR POC ABG pH POC ABG pCO2 POC ABG pO2 Sodium Potassium Chloride Carbon Dioxide BUN Creatinine Glucose POC Glucose Calcium Magnesium CK-MB (CK-2) Troponin T C-Reactive Protein Total Protein Albumin TSH 9.560 H Urine Creatinine Urine Total Protein Salicylates < 0.3 L Acetaminophen < 5.0 L 04/18/19 04/18/19 04/18/19 00:30 03:50 04:31 RBC 2.52 L Hgb 8.3 L Hct 24.9 L MCV 99 H MCH 33 H RDW Lymph % (Auto) Lymph # Seg Neutrophils % PT INR POC ABG pH POC ABG pCO2 POC ABG pO2 Sodium Potassium Chloride Carbon Dioxide BUN Creatinine Glucose POC Glucose Calcium Magnesium CK-MB (CK-2) 4.6 H Troponin T 0.042 H C-Reactive Protein Total Protein Albumin TSH Urine Creatinine 78.6 H Urine Total Protein 19 H Salicylates Acetaminophen 04/18/19 04/18/19 04/18/19 06:58 09:27 10:16 RBC Hgb Hct MCV MCH RDW Lymph % (Auto) Lymph # Seg Neutrophils % PT INR POC ABG pH POC ABG pCO2 POC ABG pO2 Sodium Potassium Chloride Carbon Dioxide BUN Creatinine Glucose POC Glucose 200 H 205 H Calcium Magnesium CK-MB (CK-2) 4.5 H Troponin T 0.032 H D C-Reactive Protein Total Protein Albumin TSH Urine Creatinine Urine Total Protein Salicylates Acetaminophen 04/18/19 04/18/19 04/18/19 11:00 12:05 12:05 RBC Hgb Hct MCV MCH RDW Lymph % (Auto) Lymph # Seg Neutrophils % PT INR POC ABG pH 7.250 L POC ABG pCO2 53.7 H POC ABG pO2 65 L Sodium 134 L Potassium 5.3 H Chloride 96.3 L Carbon Dioxide BUN 48 H Creatinine 3.1 H Glucose 210 H POC Glucose Calcium Magnesium 1.40 L CK-MB (CK-2) Troponin T C-Reactive Protein 1.50 H Total Protein Albumin TSH Urine Creatinine Urine Total Protein Salicylates Acetaminophen 04/18/19 04/18/19 04/18/19 12:12 17:49 21:52 RBC Hgb Hct MCV MCH RDW Lymph % (Auto) Lymph # Seg Neutrophils % PT INR POC ABG pH POC ABG pCO2 POC ABG pO2 Sodium Potassium Chloride Carbon Dioxide BUN Creatinine Glucose POC Glucose 209 H 189 H 314 H Calcium Magnesium CK-MB (CK-2) Troponin T C-Reactive Protein Total Protein Albumin TSH Urine Creatinine Urine Total Protein Salicylates Acetaminophen 04/19/19 04/19/19 04/19/19 02:50 02:50 02:50 RBC 2.84 L 2.80 L Hgb 9.1 L 9.0 L Hct 28.0 L 27.7 L MCV 99 H 99 H MCH RDW Lymph % (Auto) 7.2 L 7.2 L Lymph # 0.5 L 0.5 L Seg Neutrophils % 88.7 H 89.1 H PT INR POC ABG pH POC ABG pCO2 POC ABG pO2 Sodium Potassium Chloride Carbon Dioxide BUN 40 H Creatinine 2.2 H Glucose 216 H POC Glucose Calcium Magnesium CK-MB (CK-2) Troponin T C-Reactive Protein Total Protein Albumin TSH Urine Creatinine Urine Total Protein Salicylates Acetaminophen 04/19/19 04/19/19 04/19/19 02:50 07:33 11:26 RBC Hgb Hct MCV MCH RDW Lymph % (Auto) Lymph # Seg Neutrophils % PT 17.3 H INR 1.45 H POC ABG pH POC ABG pCO2 POC ABG pO2 Sodium Potassium Chloride Carbon Dioxide BUN Creatinine Glucose POC Glucose 211 H 268 H Calcium Magnesium CK-MB (CK-2) Troponin T C-Reactive Protein Total Protein Albumin TSH Urine Creatinine Urine Total Protein Salicylates Acetaminophen 04/19/19 04/19/19 04/19/19 16:54 21:34 Unknown RBC Hgb Hct MCV MCH RDW Lymph % (Auto) Lymph # Seg Neutrophils % PT INR POC ABG pH POC ABG pCO2 POC ABG pO2 Sodium Potassium Chloride Carbon Dioxide BUN 38 H Creatinine 2.0 H Glucose 199 H POC Glucose 349 H 353 H Calcium Magnesium CK-MB (CK-2) Troponin T C-Reactive Protein Total Protein Albumin TSH Urine Creatinine Urine Total Protein Salicylates Acetaminophen 09/03/0104/20/19 04/20/19 07:42 11:53 16:08 RBC Hgb Hct MCV MCH RDW Lymph % (Auto) Lymph # Seg Neutrophils % PT INR POC ABG pH POC ABG pCO2 POC ABG pO2 Sodium Potassium Chloride Carbon Dioxide BUN Creatinine Glucose POC Glucose 266 H 292 H 269 H Calcium Magnesium CK-MB (CK-2) Troponin T C-Reactive Protein Total Protein Albumin TSH Urine Creatinine Urine Total Protein Salicylates Acetaminophen 04/20/19 04/20/19 04/20/19 21:32 Unknown Unknown RBC 2.61 L Hgb 8.6 L Hct 25.7 L MCV 99 H MCH 33 H RDW Lymph % (Auto) 12.5 L Lymph # 1.1 L Seg Neutrophils % 80.6 H PT INR POC ABG pH POC ABG pCO2 POC ABG pO2 Sodium 136 L Potassium Chloride Carbon Dioxide BUN 33 H Creatinine Glucose 293 H POC Glucose 282 H Calcium 8.2 L Magnesium CK-MB (CK-2) Troponin T C-Reactive Protein Total Protein Albumin TSH Urine Creatinine Urine Total Protein Salicylates Acetaminophen 04/21/19 04/21/19 04/21/19 06:20 06:20 07:46 RBC 2.64 L Hgb 8.7 L Hct 26.0 L MCV 99 H MCH 33 H RDW Lymph % (Auto) Lymph # Seg Neutrophils % 71.3 H PT INR POC ABG pH POC ABG pCO2 POC ABG pO2 Sodium Potassium Chloride Carbon Dioxide BUN 23 H Creatinine Glucose 204 H POC Glucose 207 H Calcium Magnesium CK-MB (CK-2) Troponin T C-Reactive Protein Total Protein Albumin TSH Urine Creatinine Urine Total Protein Salicylates Acetaminophen 04/21/19 04/21/19 04/21/19 11:47 16:27 20:52 RBC Hgb Hct MCV MCH RDW Lymph % (Auto) Lymph # Seg Neutrophils % PT INR POC ABG pH POC ABG pCO2 POC ABG pO2 Sodium Potassium Chloride Carbon Dioxide BUN Creatinine Glucose POC Glucose 219 H 219 H 287 H Calcium Magnesium CK-MB (CK-2) Troponin T C-Reactive Protein Total Protein Albumin TSH Urine Creatinine Urine Total Protein Salicylates Acetaminophen 04/22/19 04/22/19 04/22/19 08:01 12:02 15:16 RBC 2.83 L Hgb 9.3 L Hct 27.9 L MCV 99 H MCH 33 H RDW 15.5 H Lymph % (Auto) 8.3 L Lymph # 0.7 L Seg Neutrophils % 84.4 H PT INR POC ABG pH POC ABG pCO2 POC ABG pO2 Sodium Potassium Chloride Carbon Dioxide BUN Creatinine Glucose POC Glucose 163 H 214 H Calcium Magnesium CK-MB (CK-2) Troponin T C-Reactive Protein Total Protein Albumin TSH Urine Creatinine Urine Total Protein Salicylates Acetaminophen 04/22/19 16:43 RBC Hgb Hct MCV MCH RDW Lymph % (Auto) Lymph # Seg Neutrophils % PT INR POC ABG pH POC ABG pCO2 POC ABG pO2 Sodium Potassium Chloride Carbon Dioxide BUN Creatinine Glucose POC Glucose 308 H Calcium Magnesium CK-MB (CK-2) Troponin T C-Reactive Protein Total Protein Albumin TSH Urine Creatinine Urine Total Protein Salicylates Acetaminophen Chest x-ray: report reviewed, image reviewed (No acute findings.) Allied health notes reviewed: nursing
[2019-04-22] MEDS: PROzac PO SCH (18:59)
[2019-04-22] MEDS: SODIUM CHLORIDE FLUSH SYRINGE 10 ML IV SCH ×2 (20:13→22:20)
[2019-04-22] MEDS: LANTUS SUB-Q SCH (22:18)
[2019-04-23] MEDS: CARDIZEM PO SCH ×3 (00:57→13:03)
[2019-04-23] MEDS: MORPHINE IV PRN (04:45)
[2019-04-23 05:28] LABS: Hematocrit 26.9 % (35.5-45.6); Hemoglobin 8.9 gm/dl (11.8-15.2); Mean Corpuscular HGB Conc 33 % (32-34); Mean Corpuscular Volume 98 fl (84-94); Red Blood Count 2.76 M/mm3 (3.65-5.03); Red Cell Distribution Width 15.2 % (13.2-15.2)
[2019-04-23 05:38] LABS: INR 1.15 (0.87-1.13)
[2019-04-23 06:01] LABS: Alanine Aminotransferase 71 units/L (7-56); Albumin 3.2 g/dL (3.9-5); BUN/Creatinine Ratio 17; Blood Urea Nitrogen 20 mg/dL (9-20); Calcium 8.8 mg/dL (8.4-10.2); Hemolysis Index 18
[2019-04-23] MEDS: PULMICORT IH SCH (08:55)
[2019-04-23] MEDS: BROVANA NEBU IH SCH (08:55)
--- NOTE | 2019-04-23 10:05 | Progress Note ---
Assessment and Plan Hypotension secondary to bradycardia, on Dopamine Acute renal failure, likely prerenal azotemia but cannot rule ischemic ATN Hyperkalemia status post Kayexelate diabetes A. fib on Eliquis - TEGAN resolved, tolerating diuretics - Torsemide 10 mg qday PO - renally dose meds - strict I&O - daily weight will sign off, please re-consult if needed Odin Erazo MD [phone] Subjective Date of service: 04/23/19 Principal diagnosis: Symptomatic bradycardia; Hypotension; HUMA; A-Fib with RVR; AE-COPD Interval history: denies acute issues, ready to go home Objective - Vital Signs Vital signs: Vital Signs - 12hr 04/22/19 04/22/19 04/23/19 22:20 23:09 00:57 Temperature 97.6 F Pulse Rate 76 76 Pulse Rate [ Anterior Bilateral Throughout] Pulse Rate [ 67 Apical] Pulse Rate [ 67 From Monitor] Pulse Rate [ Posterior Bilateral Throughout] Respiratory 18 20 Rate Respiratory Rate [Anterior Bilateral Throughout] Respiratory Rate [Posterior Bilateral Throughout] Blood Pressure 120/67 120/67 O2 Sat by Pulse 96 93 Oximetry 04/23/19 04/23/19 04/23/19 03:20 04:45 05:00 Temperature 97.4 F L Pulse Rate 83 Pulse Rate [ Anterior Bilateral Throughout] Pulse Rate [ Apical] Pulse Rate [ From Monitor] Pulse Rate [ Posterior Bilateral Throughout] Respiratory 19 18 18 Rate Respiratory Rate [Anterior Bilateral Throughout] Respiratory Rate [Posterior Bilateral Throughout] Blood Pressure 116/80 O2 Sat by Pulse 95 Oximetry 04/23/19 04/23/19 04/23/19 05:30 07:43 08:57 Temperature 98.2 F Pulse Rate 83 85 Pulse Rate [ 84 Anterior Bilateral Throughout] Pulse Rate [ Apical] Pulse Rate [ From Monitor] Pulse Rate [ 88 Posterior Bilateral Throughout] Respiratory 18 Rate Respiratory 20 Rate [Anterior Bilateral Throughout] Respiratory 18 Rate [Posterior Bilateral Throughout] Blood Pressure 116/80 140/55 O2 Sat by Pulse 96 Oximetry 04/23/19 08:59 Temperature Pulse Rate Pulse Rate [ Anterior Bilateral Throughout] Pulse Rate [ Apical] Pulse Rate [ From Monitor] Pulse Rate [ Posterior Bilateral Throughout] Respiratory Rate Respiratory Rate [Anterior Bilateral Throughout] Respiratory Rate [Posterior Bilateral Throughout] Blood Pressure O2 Sat by Pulse 97 Oximetry - General Appearance General appearance: well-developed, well-nourished, obese EENT: ATNC, PERRL, mucous membranes moist Neck: no JVD, no carotid bruit Respiratory: Present: Clear to Ascultation Cardiology: regular, S1S2 Gastrointestinal: normoactive bowel sounds, no tenderness, no distended Integumentary: no rash, warm and dry Neurologic: no focal deficit, no asterixis, alert and oriented x3 Musculoskeletal: other (2+ pitting edema in BLE) Psychiatric: mood/affect appropriate, cooperative - Lab 04/23/19 04:34 04/23/19 04:34 Most recent lab results Calcium 8.8 mg/dL (8.4-10.2) 04/23/19 04:34 Magnesium 1.80 mg/dL (1.7-2.3) 04/19/19 02:50 78.6 mg/dL (0.1-20.0) H 04/18/19 03:50 35 mmol/L 04/18/19 09:24 19 mg/dL (5-11.8) H 04/18/19 03:50 Medications & Allergies - Medications Allergies/Adverse Reactions: Allergies No Known Allergies Allergy (Unverified 08/21/14 12:00) Home Medications: Home Medications Medication Instructions Recorded Confirmed Last Taken Type ALBUTEROL Inhaler (OR & NICU) 2 puff IH QID PRN 03/29/19 04/18/19 04/17/19 History [ProAir HFA Inhaler] Glimepiride [Amaryl] 2 mg PO BID 03/29/19 04/18/19 04/17/19 History Metformin HCl [metFORMIN] 1,000 mg PO BID 03/29/19 04/18/19 04/17/19 History Pantoprazole [Protonix TAB] 40 mg PO QDAY 03/29/19 04/18/19 04/17/19 History ALBUTEROL NEB's [Proventil 0.083% 2.5 mg IH Q4HRT PRN #60 nebu 04/14/19 04/18/19 04/17/19 Rx NEBS] Apixaban [Eliquis] 5 mg PO BID #60 tablet 04/14/19 04/18/19 04/17/19 Rx AtorvaSTATin [Lipitor] 40 mg PO DAILY #30 tablet 04/14/19 04/18/19 04/16/19 Rx Benzonatate [Tessalon Perles] 100 mg PO Q8HR #14 capsule 04/14/19 04/18/19 04/16/19 Rx FLUoxetine HCL [Prozac] 10 mg PO QDAY #30 capsule 04/14/19 04/18/19 04/17/19 Rx Ipratropium/Albuterol Sulfate 1 ampul IH TIDRT #90 ampul.neb 04/14/19 04/18/19 04/17/19 Rx [DUONEB *Not for PRN Use*] Metoprolol [Lopressor TAB] 50 mg PO BID #60 tablet 04/14/19 04/18/19 04/17/19 Rx QUEtiapine [SEROquel] 25 mg PO BID #60 tablet 04/14/19 04/18/19 04/16/19 Rx Tiotropium [place] [Spiriva 4 gm IH QDAY #1 mist.inhal 04/14/19 04/18/19 04/17/19 Rx Respimat] dilTIAZem CD [Cardizem CD] 300 mg PO QDAY #30 capsule 04/14/19 04/18/19 04/17/19 Rx predniSONE [Deltasone] 10 mg PO QDAY #2 tablet 04/14/19 04/18/19 04/17/19 Rx Torsemide [Demadex] 10 mg PO QDAY #30 tablet 04/23/19 Unknown Rx Active Medications: Generic Name Dose Route Start Last Admin Trade Name Freq PRN Reason Stop Dose Admin Acetaminophen 650 mg 04/18/19 04:12 04/20/19 21:08 Tylenol PO 650 mg Q4H PRN Administration Pain MILD(1-3)/Fever >100.5/ARIAS Albuterol 2.5 mg 04/18/19 10:06 Proventil IH Q4HRT PRN Shortness Of Breath Apixaban 5 mg 04/18/19 10:00 04/22/19 22:19 Eliquis PO 5 mg Q12HR RADHA Administration Protocol Arformoterol Tartrate 15 mcg 04/18/19 12:30 04/23/19 08:55 Brovana Nebu IH 15 mcg Q12HRT RADHA Administration Atorvastatin Calcium 40 mg 04/19/19 10:00 04/22/19 11:11 Lipitor PO 40 mg DAILY RADHA Administration Benzonatate 100 mg 04/18/19 14:00 04/22/19 14:42 Tessalon Perles PO 100 mg Q8HR PRN Administration Cough Budesonide 0.5 mg 04/18/19 20:00 04/23/19 08:55 Pulmicort IH 0.5 mg Q12HRT RADHA Administration Dextrose 50 ml 04/18/19 04:21 D50w (25gm) Syringe IV PRN PRN Hypoglycemia Diltiazem HCl 90 mg 04/21/19 18:00 04/23/19 05:30 Cardizem PO 90 mg Q6HR RADHA Administration Fluoxetine HCl 10 mg 04/19/19 10:00 04/22/19 18:59 Prozac PO 10 mg QDAY RADHA Administration Insulin Glargine 16 units 04/21/19 22:00 04/22/19 22:18 Lantus SUB-Q 16 units QHS RADHA Administration Insulin Human Lispro 0 unit 04/18/19 22:00 04/22/19 22:19 Humalog SUB-Q Not Given ACHS [facility] Protocol Morphine Sulfate 2 mg 04/18/19 22:27 04/23/19 04:45 Morphine IV 2 mg Q4H PRN Administration Pain, Moderate (4-6) Ondansetron HCl 4 mg 04/18/19 04:12 Zofran IV Q8H PRN Nausea And Vomiting Pantoprazole Sodium 40 mg 04/18/19 13:00 04/22/19 11:11 Protonix PO 40 mg QDAY RADHA Administration Prednisone 10 mg 04/22/19 10:00 04/22/19 11:11 Deltasone PO 10 mg QDAY RADHA Administration Quetiapine Fumarate 25 mg 04/18/19 22:00 04/22/19 22:19 Seroquel PO 25 mg BID RADHA Administration Sodium Chloride 10 ml 04/18/19 10:00 04/22/19 22:20 Sodium Chloride Flush Syringe 10 Ml IV 10 ml BID RADHA Administration Sodium Chloride 10 ml 04/18/19 04:12 04/21/19 14:51 Sodium Chloride Flush Syringe 10 Ml IV 10 ml PRN PRN Administration LINE FLUSH Torsemide 10 mg 04/22/19 13:00 04/22/19 14:42 Demadex PO 10 mg QDAY RADHA Administration
[2019-04-23] MEDS: PROzac PO SCH (10:39)
[2019-04-23] MEDS: DELTASONE PO SCH (10:39)
[2019-04-23] MEDS: DEMADEX PO SCH (10:39)
[2019-04-23] MEDS: ELIQUIS PO SCH (10:39)
[2019-04-23] MEDS: PROTONIX PO SCH (10:39)
[2019-04-23 10:56] LABS: Total Cells Counted 100
[2019-04-23 10:57] LABS: Anisocytosis Few; Platelet Estimate Consistent w Auto; Poikilocytosis Few
[2019-04-23 10:59] LABS: Platelet Count 211 K/mm3 (140-440)
[2019-04-23 11:31] VITALS: BP 119/71
--- NOTE | 2019-04-23 12:36 | Discharge Summary ---
Providers - Providers Date of Admission: 04/18/19 04:00 Date of discharge: 04/23/19 Attending physician: SERVANDO URIAS 04/17/19 23:46 Consult to Physician [CONS] Stat Comment: Consulting Provider: TERESA INGRAM Physician Instructions: Reason For Exam: cardiogenic shock 04/18/19 02:59 Consult to Physician [CONS] Urgent Comment: Consulting Provider: LORI BAHENA Physician Instructions: Reason For Exam: shock 04/18/19 04:12 Consult to Physician [CONS] Routine Comment: Consulting Provider: TRISTIN GIRALDO Physician Instructions: Reason For Exam: arf 04/18/19 11:15 Consult to Physician [CONS] Routine Comment: Consulting Provider: BEATRIS EL Physician Instructions: Reason For Exam: anemia 04/18/19 11:54 Physical Therapy Evaluation and Treat [CONS] Routine Comment: Reason For Exam: evaluate and treat 04/18/19 23:29 Consult to Case Management [CONS] Routine Services Needed at Discharge: Skidder Operator Notified:: no Was contact made?: No Additional Physician Instructions: Pt states he has nowhere to go once D/Zane from hospital [facility] Condition: Stable Disposition: DC-01 TO HOME OR SELFCARE Time spent for discharge: 32 min Core Measure Documentation - Palliative Care Palliative Care/ Comfort Measures: Not Applicable - Core Measures Any of the following diagnoses?: none Exam - Constitutional Vitals: Temp Pulse Resp BP Pulse Ox 98.0 F 83 18 119/71 96 04/23/19 11:19 04/23/19 11:19 04/23/19 11:19 04/23/19 11:19 04/23/19 11:19 General appearance: Present: no acute distress, well-nourished, obese - EENT Eyes: Present: PERRL, EOM intact - Neck Neck: Present: supple, normal ROM - Respiratory Respiratory effort: normal Respiratory: bilateral: diminished, negative: rales, rhonchi, wheezing - Cardiovascular Rhythm: regular Heart Sounds: Present: S1 & S2 - Extremities Extremities: no ischemia Extremity abnormal: edema - Abdominal General gastrointestinal: Present: soft, non-tender, non-distended, normal bowel sounds - Integumentary Integumentary: Present: clear, warm - Musculoskeletal Musculoskeletal: strength equal bilaterally - Psychiatric Psychiatric: appropriate mood/affect, cooperative - Neurologic Neurologic: CNII-XII intact, moves all extremities Plan Activity: advance as tolerated, fall precautions Diet: diabetic, other (cardiac diet) Additional Instructions: Advised to see private Vibrator Equipment Tester 1 wk. f/u private Cleaner Touch Up Worker 1 week. advised to continue Bipap/Cpap as before. If you have chest pain or SOB contact MD or go to ER if needed Follow up with: BOB PANDEY MD [Primary Care Provider] - 3-5 Days Prescriptions: Torsemide [Demadex] 10 mg PO QDAY #30 tablet
--- NOTE | 2019-04-23 13:16 | Progress Note ---
Assessment and Plan Currently stable cardiac status. Pt may discharge home from cardiology standpoint. At discharge, recommend conversion of cardizem Q6H to home cardizem CD 300mg daily. Continue eliquis. Recommend pt follow up with [facility] within 1-2 weeks of hospital discharge. Pt verbalizes understanding. The patient has been seen in conjunction with Dr. Simon Morin who agrees with the assessment and plan of care. - Patient Problems (1) Paroxysmal atrial fibrillation with RVR Current Visit: Yes Status: Acute (2) Atrial fibrillation with slow ventricular response Current Visit: Yes Status: Resolved (3) Symptomatic sinus bradycardia Current Visit: Yes Status: Resolved (4) Hypotension Current Visit: Yes Status: Resolved (5) Acute renal failure Current Visit: Yes Status: Acute (6) Hyperkalemia Current Visit: Yes Status: Acute (7) Hypomagnesemia Current Visit: Yes Status: Acute (8) COPD (chronic obstructive pulmonary disease) Current Visit: Yes Status: Chronic (9) Sleep apnea Current Visit: Yes Status: Chronic (10) Diabetes Current Visit: Yes Status: Chronic (11) Obesity Current Visit: Yes Status: Chronic (12) History of ETOH abuse Current Visit: Yes Status: Chronic (13) Anemia Current Visit: Yes Status: Acute Subjective Date of service: 04/23/19 Principal diagnosis: Symptomatic bradycardia; Hypotension; HUMA; A-Fib with RVR; AE-COPD Interval history: pt resting comfortably in bed, no current cardiac complaints. tele reviewed - in AFib with CVR overnight, no ada or tachyarrhythmias. Objective Last Vital Signs Temp 98.0 F 04/23/19 11:19 Pulse 83 04/23/19 11:19 Resp 18 04/23/19 11:19 BP 119/71 04/23/19 11:19 Pulse Ox 96 04/23/19 11:19 - Physical Examination General: No Apparent Distress HEENT: Positive: PERRL, Normocephaly, Mucus Membranes Moist Neck: Positive: neck supple, trachea midline Cardiac: Positive: irregularly irregular, S1/S2 Lungs: Positive: Decreased Breath Sounds Neuro: Positive: Grossly Intact Abdomen: Positive: Unremarkable. Negative: Tender /Rectal: Other (deferred) Skin: Positive: Clear. Negative: Rash Musculoskeletal: No Pain Extremities: Present: normal. Absent: edema - Labs and Meds Cardiac Enzymes 04/23/19 Range/Units 04:34 AST 22 (5-40) units/L Coagulation 04/23/19 Range/Units 04:34 PT 14.4 (12.2-14.9) Sec. INR 1.15 H (0.87-1.13) CBC 04/22/19 04/23/19 Range/Units 15:16 04:34 WBC 8.7 8.5 (4.5-11.0) K/mm3 RBC 2.83 L 2.76 L (3.65-5.03) M/mm3 Hgb 9.3 L 8.9 L (11.8-15.2) gm/dl Hct 27.9 L 26.9 L (35.5-45.6) % Plt Count 236 211 (140-440) K/mm3 Lymph # 0.7 L (1.2-5.4) K/mm3 [place] # 0.5 (0.0-0.8) K/mm3 Eos # 0.0 (0.0-0.4) K/mm3 Baso # 0.1 (0.0-0.1) K/mm3 Comprehensive Metabolic Panel 04/23/19 Range/Units 04:34 Sodium 138 (137-145) mmol/L Potassium 4.1 (3.6-5.0) mmol/L Chloride 98.9 (98-107) mmol/L Carbon Dioxide 25 (22-30) mmol/L BUN 20 (9-20) mg/dL Creatinine 1.2 (0.8-1.5) mg/dL Glucose 224 H (75-100) mg/dL Calcium 8.8 (8.4-10.2) mg/dL AST 22 (5-40) units/L ALT 71 H (7-56) units/L Alkaline Phosphatase 117 (35-129) units/L Total Protein 5.8 L (6.3-8.2) g/dL Albumin 3.2 L (3.9-5) g/dL - Imaging and Cardiology EKG: image reviewed Echo: report reviewed (03/2019: EF 55-60%, abnormal left ventricular diastolic function) - EKG Sinus rhythms and dysrhythmias: sinus bradycardia - Allied health notes Allied health notes reviewed: nursing
--- NOTE | 2019-04-23 14:08 | Progress Note ---
Assessment and Plan Patient alert and awake. Patient morbidly obese. No complaint of chest pain, SOB, or cough at this time. Patient is on RA. O2 saturation 99% on room air. Patient has history of sleep apnea. BIPAP standby in the room. - Patient Problems (1) COPD exacerbation Status: Acute Plan to address problem: Continue Prednisone. O2 2L NC. Albuterol/Atrovent aerosol treatments. Continue apixaban. Continue protonix. (2) Morbid obesity with BMI of 40.0-44.9, adult Status: Acute Plan to address problem: Recommend to lose weight. Recommend exercise and diet. (3) TEGAN (acute kidney injury) Status: Acute Plan to address problem: Management as per nephrology. (4) Paroxysmal atrial fibrillation with RVR Status: Acute Plan to address problem: Patient on apixaban. Management as per cardiology. (5) Diabetes Status: Chronic Plan to address problem: Management as per primary care. (6) History of ETOH abuse Status: Chronic Plan to address problem: Management as per primary care. (7) Sleep apnea Status: Chronic Plan to address problem: Continue CPAP. (8) HTN (hypertension) Status: Chronic Plan to address problem: Management as per primary care. Subjective Date of service: 04/23/19 Principal diagnosis: Symptomatic bradycardia; Hypotension; HUMA; A-Fib with RVR; AE-COPD Interval history: Patient alert and awake. Patient morbidly obese. No complaint of chest pain, SOB, or cough at this time. Patient is on RA. O2 saturation 99% on room air. Patient has history of sleep apnea. BIPAP standby in the room. Objective Vital Signs - 12hr 04/23/19 04/23/19 04/23/19 03:20 04:45 05:00 Temperature 97.4 F L Pulse Rate 83 Pulse Rate [ Anterior Bilateral Throughout] Pulse Rate [ Posterior Bilateral Throughout] Respiratory 19 18 18 Rate Respiratory Rate [Anterior Bilateral Throughout] Respiratory Rate [Posterior Bilateral Throughout] Blood Pressure 116/80 O2 Sat by Pulse 95 Oximetry 04/23/19 04/23/19 04/23/19 05:30 07:43 08:57 Temperature 98.2 F Pulse Rate 83 85 Pulse Rate [ 84 Anterior Bilateral Throughout] Pulse Rate [ 88 Posterior Bilateral Throughout] Respiratory 18 Rate Respiratory 20 Rate [Anterior Bilateral Throughout] Respiratory 18 Rate [Posterior Bilateral Throughout] Blood Pressure 116/80 140/55 O2 Sat by Pulse 96 Oximetry 04/23/19 04/23/19 04/23/19 08:59 10:00 11:19 Temperature 98.0 F Pulse Rate 83 83 Pulse Rate [ Anterior Bilateral Throughout] Pulse Rate [ Posterior Bilateral Throughout] Respiratory 18 Rate Respiratory Rate [Anterior Bilateral Throughout] Respiratory Rate [Posterior Bilateral Throughout] Blood Pressure 119/71 O2 Sat by Pulse 97 96 96 Oximetry Constitutional: no acute distress, alert, other (Middle aged morbidly obese CM, normocephalic abd atraumatic) Eyes: non-icteric ENT: oropharynx moist, other (mallampati 4) Neck: supple, no lymphadenopathy, no JVD, other (large neck circumference) Effort: mildly labored Ascultation: Bilateral: diminished breath sounds Percussion: Bilateral: not dull Cardiovascular: irregular rhythm, other (No R/M) Gastrointestinal: normoactive bowel sounds, soft, non-tender, other (protuberant) Integumentary: normal Extremities: no cyanosis, pink and warm, pulses normal, no ischemia or petechiae, edema Neurologic: normal mental status, non-focal exam, pupils equal and round, motor strength normal and Psychiatric: mood appropriate, affect normal CBC and BMP: 04/23/19 04:34 04/23/19 04:34 ABG, PT/INR, D-dimer: ABG POC ABG pH 7.379 (7.35-7.45) 04/19/19 15:23 POC ABG pCO2 37.5 (35-45) 04/19/19 15:23 POC ABG pO2 96 (80-105) 04/19/19 15:23 POC ABG HCO3 22.1 (22-26 mml/L) 04/19/19 15:23 POC ABG Total CO2 23 (23-27mmol/L) 04/19/19 15:23 POC ABG O2 Sat 97 04/19/19 15:23 PT/INR, D-dimer PT 14.4 Sec. (12.2-14.9) 04/23/19 04:34 INR 1.15 (0.87-1.13) H 04/23/19 04:34 Abnormal lab findings: Abnormal Labs 04/18/19 04/18/19 04/18/19 00:26 00:26 00:26 RBC Hgb Hct MCV MCH RDW Lymph % (Auto) Lymph # Seg Neutrophils % PT 17.5 H INR 1.47 H POC ABG pH POC ABG pCO2 POC ABG pO2 Sodium 135 L Potassium 5.5 H D Chloride 96.4 L Carbon Dioxide 20 L D BUN 45 H Creatinine 3.1 H D Glucose 205 H POC Glucose Calcium 7.9 L Magnesium 1.20 L ALT CK-MB (CK-2) Troponin T 0.052 H C-Reactive Protein Total Protein 5.1 L Albumin 3.1 L TSH Urine Creatinine Urine Total Protein Salicylates Acetaminophen 04/18/19 04/18/19 04/18/19 00:26 00:26 00:26 RBC Hgb Hct MCV MCH RDW Lymph % (Auto) Lymph # Seg Neutrophils % PT INR POC ABG pH POC ABG pCO2 POC ABG pO2 Sodium Potassium Chloride Carbon Dioxide BUN Creatinine Glucose POC Glucose Calcium Magnesium ALT CK-MB (CK-2) Troponin T C-Reactive Protein Total Protein Albumin TSH 9.560 H Urine Creatinine Urine Total Protein Salicylates < 0.3 L Acetaminophen < 5.0 L 04/18/19 04/18/19 04/18/19 00:30 03:50 04:31 RBC 2.52 L Hgb 8.3 L Hct 24.9 L MCV 99 H MCH 33 H RDW Lymph % (Auto) Lymph # Seg Neutrophils % PT INR POC ABG pH POC ABG pCO2 POC ABG pO2 Sodium Potassium Chloride Carbon Dioxide BUN Creatinine Glucose POC Glucose Calcium Magnesium ALT CK-MB (CK-2) 4.6 H Troponin T 0.042 H C-Reactive Protein Total Protein Albumin TSH Urine Creatinine 78.6 H Urine Total Protein 19 H Salicylates Acetaminophen 04/18/19 04/18/19 04/18/19 06:58 09:27 10:16 RBC Hgb Hct MCV MCH RDW Lymph % (Auto) Lymph # Seg Neutrophils % PT INR POC ABG pH POC ABG pCO2 POC ABG pO2 Sodium Potassium Chloride Carbon Dioxide BUN Creatinine Glucose POC Glucose 200 H 205 H Calcium Magnesium ALT CK-MB (CK-2) 4.5 H Troponin T 0.032 H D C-Reactive Protein Total Protein Albumin TSH Urine Creatinine Urine Total Protein Salicylates Acetaminophen 04/18/19 04/18/19 04/18/19 11:00 12:05 12:05 RBC Hgb Hct MCV MCH RDW Lymph % (Auto) Lymph # Seg Neutrophils % PT INR POC ABG pH 7.250 L POC ABG pCO2 53.7 H POC ABG pO2 65 L Sodium 134 L Potassium 5.3 H Chloride 96.3 L Carbon Dioxide BUN 48 H Creatinine 3.1 H Glucose 210 H POC Glucose Calcium Magnesium 1.40 L ALT CK-MB (CK-2) Troponin T C-Reactive Protein 1.50 H Total Protein Albumin TSH Urine Creatinine Urine Total Protein Salicylates Acetaminophen 04/18/19 04/18/19 04/18/19 12:12 17:49 21:52 RBC Hgb Hct MCV MCH RDW Lymph % (Auto) Lymph # Seg Neutrophils % PT INR POC ABG pH POC ABG pCO2 POC ABG pO2 Sodium Potassium Chloride Carbon Dioxide BUN Creatinine Glucose POC Glucose 209 H 189 H 314 H Calcium Magnesium ALT CK-MB (CK-2) Troponin T C-Reactive Protein Total Protein Albumin TSH Urine Creatinine Urine Total Protein Salicylates Acetaminophen 04/19/19 04/19/19 04/19/19 02:50 02:50 02:50 RBC 2.84 L 2.80 L Hgb 9.1 L 9.0 L Hct 28.0 L 27.7 L MCV 99 H 99 H MCH RDW Lymph % (Auto) 7.2 L 7.2 L Lymph # 0.5 L 0.5 L Seg Neutrophils % 88.7 H 89.1 H PT INR POC ABG pH POC ABG pCO2 POC ABG pO2 Sodium Potassium Chloride Carbon Dioxide BUN 40 H Creatinine 2.2 H Glucose 216 H POC Glucose Calcium Magnesium ALT CK-MB (CK-2) Troponin T C-Reactive Protein Total Protein Albumin TSH Urine Creatinine Urine Total Protein Salicylates Acetaminophen 04/19/19 04/19/19 04/19/19 02:50 07:33 11:26 RBC Hgb Hct MCV MCH RDW Lymph % (Auto) Lymph # Seg Neutrophils % PT 17.3 H INR 1.45 H POC ABG pH POC ABG pCO2 POC ABG pO2 Sodium Potassium Chloride Carbon Dioxide BUN Creatinine Glucose POC Glucose 211 H 268 H Calcium Magnesium ALT CK-MB (CK-2) Troponin T C-Reactive Protein Total Protein Albumin TSH Urine Creatinine Urine Total Protein Salicylates Acetaminophen 04/19/19 04/19/19 04/19/19 16:54 21:34 Unknown RBC Hgb Hct MCV MCH RDW Lymph % (Auto) Lymph # Seg Neutrophils % PT INR POC ABG pH POC ABG pCO2 POC ABG pO2 Sodium Potassium Chloride Carbon Dioxide BUN 38 H Creatinine 2.0 H Glucose 199 H POC Glucose 349 H 353 H Calcium Magnesium ALT CK-MB (CK-2) Troponin T C-Reactive Protein Total Protein Albumin TSH Urine Creatinine Urine Total Protein Salicylates Acetaminophen 04/20/19 04/20/19 04/20/19 07:42 11:53 16:08 RBC Hgb Hct MCV MCH RDW Lymph % (Auto) Lymph # Seg Neutrophils % PT INR POC ABG pH POC ABG pCO2 POC ABG pO2 Sodium Potassium Chloride Carbon Dioxide BUN Creatinine Glucose POC Glucose 266 H 292 H 269 H Calcium Magnesium ALT CK-MB (CK-2) Troponin T C-Reactive Protein Total Protein Albumin TSH Urine Creatinine Urine Total Protein Salicylates Acetaminophen 04/20/19 04/20/19 04/20/19 21:32 Unknown Unknown RBC 2.61 L Hgb 8.6 L Hct 25.7 L MCV 99 H MCH 33 H RDW Lymph % (Auto) 12.5 L Lymph # 1.1 L Seg Neutrophils % 80.6 H PT INR POC ABG pH POC ABG pCO2 POC ABG pO2 Sodium 136 L Potassium Chloride Carbon Dioxide BUN 33 H Creatinine Glucose 293 H POC Glucose 282 H Calcium 8.2 L Magnesium ALT CK-MB (CK-2) Troponin T C-Reactive Protein Total Protein Albumin TSH Urine Creatinine Urine Total Protein Salicylates Acetaminophen 04/21/19 04/21/19 04/21/19 06:20 06:20 07:46 RBC 2.64 L Hgb 8.7 L Hct 26.0 L MCV 99 H MCH 33 H RDW Lymph % (Auto) Lymph # Seg Neutrophils % 71.3 H PT INR POC ABG pH POC ABG pCO2 POC ABG pO2 Sodium Potassium Chloride Carbon Dioxide BUN 23 H Creatinine Glucose 204 H POC Glucose 207 H Calcium Magnesium ALT CK-MB (CK-2) Troponin T C-Reactive Protein Total Protein Albumin TSH Urine Creatinine Urine Total Protein Salicylates Acetaminophen 04/21/19 04/21/19 04/21/19 11:47 16:27 20:52 RBC Hgb Hct MCV MCH RDW Lymph % (Auto) Lymph # Seg Neutrophils % PT INR POC ABG pH POC ABG pCO2 POC ABG pO2 Sodium Potassium Chloride Carbon Dioxide BUN Creatinine Glucose POC Glucose 219 H 219 H 287 H Calcium Magnesium ALT CK-MB (CK-2) Troponin T C-Reactive Protein Total Protein Albumin TSH Urine Creatinine Urine Total Protein Salicylates Acetaminophen 04/22/19 04/22/19 04/22/19 08:01 12:02 15:16 RBC 2.83 L Hgb 9.3 L Hct 27.9 L MCV 99 H MCH 33 H RDW 15.5 H Lymph % (Auto) 8.3 L Lymph # 0.7 L Seg Neutrophils % 84.4 H PT INR POC ABG pH POC ABG pCO2 POC ABG pO2 Sodium Potassium Chloride Carbon Dioxide BUN Creatinine Glucose POC Glucose 163 H 214 H Calcium Magnesium ALT CK-MB (CK-2) Troponin T C-Reactive Protein Total Protein Albumin TSH Urine Creatinine Urine Total Protein Salicylates Acetaminophen 04/22/19 04/22/19 04/23/19 16:43 21:45 04:34 RBC 2.76 L Hgb 8.9 L Hct 26.9 L MCV 98 H MCH RDW Lymph % (Auto) Lymph # Seg Neutrophils % PT INR POC ABG pH POC ABG pCO2 POC ABG pO2 Sodium Potassium Chloride Carbon Dioxide BUN Creatinine Glucose POC Glucose 308 H 142 H Calcium Magnesium ALT CK-MB (CK-2) Troponin T C-Reactive Protein Total Protein Albumin TSH Urine Creatinine Urine Total Protein Salicylates Acetaminophen 04/23/19 04/23/19 04/23/19 04:34 04:34 08:06 RBC Hgb Hct MCV MCH RDW Lymph % (Auto) Lymph # Seg Neutrophils % PT INR 1.15 H POC ABG pH POC ABG pCO2 POC ABG pO2 Sodium Potassium Chloride Carbon Dioxide BUN Creatinine Glucose 224 H POC Glucose 160 H Calcium Magnesium ALT 71 H CK-MB (CK-2) Troponin T C-Reactive Protein Total Protein 5.8 L Albumin 3.2 L TSH Urine Creatinine Urine Total Protein Salicylates Acetaminophen 04/23/19 11:24 RBC Hgb Hct MCV MCH RDW Lymph % (Auto) Lymph # Seg Neutrophils % PT INR POC ABG pH POC ABG pCO2 POC ABG pO2 Sodium Potassium Chloride Carbon Dioxide BUN Creatinine Glucose POC Glucose 261 H Calcium Magnesium ALT CK-MB (CK-2) Troponin T C-Reactive Protein Total Protein Albumin TSH Urine Creatinine Urine Total Protein Salicylates Acetaminophen Allied health notes reviewed: nursing
== END 2019-04-23 14:01 | disposition home health service (06) | DRG 640 ==
LOC: ED 23:32 → CC1 04-18 04:00 → IMCU 04-20 17:37 → 4A 04-21 16:09
PROVIDERS: ADMIT Internal Medicine; ATTEND Internal Medicine
PROC: 06HY33Z Insertion of Infusion Device into Lower Vein, Percutaneous Approach (ICD-10-PCS; principal; 2019-04-18)
PROC: B54BZZA Ultrasonography of Right Lower Extremity Veins, Guidance (ICD-10-PCS; 2019-04-18)
PROC: 5A09357 Assistance with Respiratory Ventilation, Less than 24 Consecutive Hours, Continuous Positive Airway Pressure (ICD-10-PCS; 2019-04-18)
PROC: 4A033R1 Measurement of Arterial Saturation, Peripheral, Percutaneous Approach (ICD-10-PCS; 2019-04-18)
DX: E87.5 Hyperkalemia (principal); N17.0 Acute kidney failure with tubular necrosis; J96.01 Acute respiratory failure with hypoxia; Z68.41 Body mass index [BMI] 40.0-44.9, adult; J44.1 Chronic obstructive pulmonary disease with (acute) exacerbation; D68.8 Other specified coagulation defects; I42.9 Cardiomyopathy, unspecified; I48.0 Paroxysmal atrial fibrillation; E87.2 Acidosis; I95.2 Hypotension due to drugs; R00.1 Bradycardia, unspecified; E66.01 Morbid (severe) obesity due to excess calories; E83.42 Hypomagnesemia; D64.9 Anemia, unspecified; T44.995A Adverse effect of other drug primarily affecting the autonomic nervous system, initial encounter; F32.9 Major depressive disorder, single episode, unspecified; E11.22 Type 2 diabetes mellitus with diabetic chronic kidney disease; I12.9 Hypertensive chronic kidney disease with stage 1 through stage 4 chronic kidney disease, or unspecified chronic kidney disease; N18.9 Chronic kidney disease, unspecified; M19.071 Primary osteoarthritis, right ankle and foot; E78.5 Hyperlipidemia, unspecified; F17.200 Nicotine dependence, unspecified, uncomplicated; G47.33 Obstructive sleep apnea (adult) (pediatric); Z90.49 Acquired absence of other specified parts of digestive tract; Z71.3 Dietary counseling and surveillance; Z99.81 Dependence on supplemental oxygen; Y92.89 Other specified places as the place of occurrence of the external cause; Z82.49 Family history of ischemic heart disease and other diseases of the circulatory system; Z83.3 Family history of diabetes mellitus; Z79.899 Other long term (current) drug therapy; Z72.89 Other problems related to lifestyle
CPT/HCPCS: 36415; 36600; 71045; 76770; 80048; 80053; 80061; 80320; 81001; 82140; 82271; 82550; 82553; 82570; 82728; 82803; 82962; 83735; 84156; 84300; 84439; 84443; 84484; 85007; 85025; 85027; 85610; 86140; 86850; 86900; 86901; 87040; 89050; 93005; 93010; 94640; 94760; 99292; G0378; A9270-GY; G0480; J0461; J0610; J0692; J1265; J1644; J1720; J1815; J2270; J2370; J3475; J7030; J7512

== ENCOUNTER 2019-05-31 09:50 | Emergency (ER) | payer MEDICARE ==
--- NOTE | 2019-05-31 11:00 | Emergency Department Report ---
ED General Adult HPI - General Chief complaint: Syncope Stated complaint: SYNCOPE Time Seen by Provider: 05/31/19 10:22 Source: patient Mode of arrival: Ambulatory Limitations: No Limitations - History of Present Illness Initial comments: The patient presents to the emergency department with a chief complaint of a syncopal episode. The patient states he was eating breakfast and had a hot flash and began to feel dizzy when he passed out per his order. Patient states that he has fibrillation and is currently off as a liquids for a common procedure. Patient denies chest pain, shortness breath, or headache. -: Sudden Severity scale (0 -10): 0 Consistency: now resolved Improves with: none Worsens with: none Associated Symptoms: denies other symptoms Treatments Prior to Arrival: none - Related Data Home Medications Medication Instructions Recorded Confirmed Last Taken ALBUTEROL Inhaler (OR & NICU) 2 puff IH QID PRN 03/29/19 05/31/19 05/31/19 [ProAir HFA Inhaler] Metformin HCl [metFORMIN] 1,000 mg PO BID 03/29/19 05/31/19 05/30/19 Pantoprazole [Protonix TAB] 40 mg PO QDAY 03/29/19 05/31/19 05/31/19 Previous Rx's Medication Instructions Recorded Last Taken Type ALBUTEROL NEB's [Proventil 0.083% 2.5 mg IH Q4HRT PRN #60 nebu 04/14/19 05/31/19 Rx NEBS] AtorvaSTATin [Lipitor] 40 mg PO DAILY #30 tablet 04/14/19 05/31/19 Rx Ipratropium/Albuterol Sulfate 1 ampul IH TIDRT #90 ampul.neb 04/14/19 05/31/19 Rx [DUONEB *Not for PRN Use*] Metoprolol [Lopressor TAB] 50 mg PO BID #60 tablet 04/14/19 05/31/19 Rx Tiotropium Innis [Spiriva 4 gm IH QDAY #1 mist.inhal 04/14/19 05/31/19 Rx Respimat] Allergies Allergy/AdvReac Type Severity Reaction Status Date / Time No Known Allergies Allergy Unverified 08/21/14 12:00 ED Review of Systems ROS: Stated complaint: SYNCOPE Other details as noted in HPI Constitutional: denies: chills, fever Eyes: denies: eye pain, eye discharge, vision change ENT: denies: ear pain, throat pain Respiratory: denies: cough, shortness of breath, wheezing Cardiovascular: denies: chest pain, palpitations Endocrine: no symptoms reported Gastrointestinal: denies: abdominal pain, nausea, diarrhea Genitourinary: denies: urgency, dysuria Musculoskeletal: denies: back pain, joint swelling, arthralgia Skin: denies: rash, lesions Neurological: denies: headache, weakness, paresthesias Psychiatric: denies: anxiety, depression Hematological/Lymphatic: denies: easy bleeding, easy bruising ED Past Medical Hx - Past Medical History Previous Medical History?: Yes Hx Hypertension: Yes Hx Congestive Heart Failure: No Hx Diabetes: Yes Hx Liver Disease: No Hx Renal Disease: No Hx Asthma: No Hx COPD: Yes Additional medical history: A-Fib, High CHO, Ilieus - Surgical History Past Surgical History?: Yes Hx Appendectomy: Yes Additional Surgical History: shoulder, elbow, foot - Social History Smoking Status: Never Smoker Substance Use Type: None - Medications Home Medications: Home Medications Medication Instructions Recorded Confirmed Last Taken Type ALBUTEROL Inhaler (OR & NICU) 2 puff IH QID PRN 03/29/19 05/31/19 05/31/19 History [ProAir HFA Inhaler] Metformin HCl [metFORMIN] 1,000 mg PO BID 03/29/19 05/31/19 05/30/19 History Pantoprazole [Protonix TAB] 40 mg PO QDAY 03/29/19 05/31/19 05/31/19 History ALBUTEROL NEB's [Proventil 0.083% 2.5 mg IH Q4HRT PRN #60 nebu 04/14/19 05/31/19 05/31/19 Rx NEBS] AtorvaSTATin [Lipitor] 40 mg PO DAILY #30 tablet 04/14/19 05/31/19 05/31/19 Rx Ipratropium/Albuterol Sulfate 1 ampul IH TIDRT #90 ampul.neb 04/14/19 05/31/19 05/31/19 Rx [DUONEB *Not for PRN Use*] Metoprolol [Lopressor TAB] 50 mg PO BID #60 tablet 04/14/19 05/31/19 05/31/19 Rx Tiotropium Innis [Spiriva 4 gm IH QDAY #1 mist.inhal 04/14/19 05/31/19 05/31/19 Rx Respimat] ED Physical Exam - General Limitations: No Limitations General appearance: alert, in no apparent distress - Head Head exam: Present: atraumatic, normocephalic - Eye Eye exam: Present: normal appearance, PERRL, EOMI - ENT ENT exam: Present: mucous membranes moist - Neck Neck exam: Present: normal inspection - Respiratory Respiratory exam: Present: normal lung sounds bilaterally. Absent: respiratory distress, wheezes, rales - Cardiovascular Cardiovascular Exam: Present: normal rhythm, irregular rhythm. Absent: systolic murmur, diastolic murmur, rubs, gallop - GI/Abdominal GI/Abdominal exam: Present: soft, normal bowel sounds. Absent: distended, tenderness - Rectal Rectal exam: Present: deferred - Extremities Exam Extremities exam: Present: normal inspection - Back Exam Back exam: Present: normal inspection - Neurological Exam Neurological exam: Present: alert, oriented X3, CN II-XII intact. Absent: motor sensory deficit - Psychiatric Psychiatric exam: Present: normal affect, normal mood - Skin Skin exam: Present: warm, dry, intact, normal color. Absent: rash ED Course Vital Signs 05/31/19 05/31/19 12:33 17:09 Temperature 97.8 F Pulse Rate 85 74 Respiratory 16 16 Rate Blood Pressure 94/59 115/74 [Left] O2 Sat by Pulse 96 97 Oximetry ED Medical Decision Making - Lab Data Result diagrams: 05/31/19 11:36 05/31/19 11:36 Lab Results 05/31/19 05/31/19 05/31/19 Range/Units 11:36 11:36 11:36 WBC 7.4 (4.5-11.0) K/mm3 RBC 3.29 L (3.65-5.03) M/mm3 Hgb 10.1 L (11.8-15.2) gm/dl Hct 30.6 L (35.5-45.6) % MCV 93 (84-94) fl MCH 31 (28-32) pg MCHC 33 (32-34) % RDW 15.3 H (13.2-15.2) % Plt Count 269 (140-440) K/mm3 Lymph % (Auto) 26.7 (13.4-35.0) % Moore % (Auto) 6.3 (0.0-7.3) % Eos % (Auto) 1.6 (0.0-4.3) % Baso % (Auto) 1.2 (0.0-1.8) % Lymph # 2.0 (1.2-5.4) K/mm3 Moore # 0.5 (0.0-0.8) K/mm3 Eos # 0.1 (0.0-0.4) K/mm3 Baso # 0.1 (0.0-0.1) K/mm3 Seg Neutrophils % 64.2 (40.0-70.0) % Seg Neutrophils # 4.8 (1.8-7.7) K/mm3 PT 13.4 (12.2-14.9) Sec. INR 1.05 (0.87-1.13) APTT 25.9 (24.2-36.6) Sec. D-Dimer 5472.63 H (0-234) ng/mlDDU Sodium 135 L (137-145) mmol/L Potassium 4.9 (3.6-5.0) mmol/L Chloride 95.9 L (98-107) mmol/L Carbon Dioxide 24 (22-30) mmol/L Anion Gap 20 mmol/L BUN 25 H (9-20) mg/dL Creatinine 1.9 H (0.8-1.5) mg/dL Estimated GFR 36 ml/min BUN/Creatinine Ratio 13 % Glucose 150 H (75-100) mg/dL Lactic Acid (0.7-2.0) mmol/L Calcium 9.4 (8.4-10.2) mg/dL Total Bilirubin 0.40 (0.1-1.2) mg/dL AST 13 (5-40) units/L ALT 10 (7-56) units/L Alkaline Phosphatase 119 (35-129) units/L Troponin T 0.038 H (0.00-0.029) ng/mL NT-Pro-B Natriuret Pep 3422 H (0-900) pg/mL Total Protein 7.4 (6.3-8.2) g/dL Albumin 3.9 (3.9-5) g/dL Albumin/Globulin Ratio 1.1 % Triglycerides 183 H (2-149) mg/dL Cholesterol 131 (50-199) mg/dL LDL Cholesterol Direct 65 (50-130) mg/dL HDL Cholesterol 39 L (40-59) mg/dL Cholesterol/HDL Ratio 3.35 % Urine Color (Yellow) Urine Turbidity (Clear) Urine pH (5.0-7.0) Ur Specific [place] (1.003-1.030) Urine Protein (Negative) mg/dL Urine Glucose (UA) (Negative) mg/dL Urine Ketones (Negative) mg/dL Urine Blood (Negative) Urine Nitrite (Negative) Urine Bilirubin (Negative) Urine Urobilinogen (<2.0) mg/dL Ur Leukocyte Esterase (Negative) Urine WBC (Auto) (0.0-6.0) /HPF Urine RBC (Auto) (0.0-6.0) /HPF U Epithel Cells (Auto) (0-13.0) /HPF Urine Bacteria (Auto) (Negative) /HPF Urine Mucus /HPF 05/31/19 05/31/19 05/31/19 Range/Units 11:36 12:58 13:25 WBC (4.5-11.0) K/mm3 RBC (3.65-5.03) M/mm3 Hgb (11.8-15.2) gm/dl Hct (35.5-45.6) % MCV (84-94) fl MCH (28-32) pg MCHC (32-34) % RDW (13.2-15.2) % Plt Count (140-440) K/mm3 Lymph % (Auto) (13.4-35.0) % Moore % (Auto) (0.0-7.3) % Eos % (Auto) (0.0-4.3) % Baso % (Auto) (0.0-1.8) % Lymph # (1.2-5.4) K/mm3 Moore # (0.0-0.8) K/mm3 Eos # (0.0-0.4) K/mm3 Baso # (0.0-0.1) K/mm3 Seg Neutrophils % (40.0-70.0) % Seg Neutrophils # (1.8-7.7) K/mm3 PT (12.2-14.9) Sec. INR (0.87-1.13) APTT (24.2-36.6) Sec. D-Dimer (0-234) ng/mlDDU Sodium (137-145) mmol/L Potassium (3.6-5.0) mmol/L Chloride (98-107) mmol/L Carbon Dioxide (22-30) mmol/L Anion Gap mmol/L BUN (9-20) mg/dL Creatinine (0.8-1.5) mg/dL Estimated GFR ml/min BUN/Creatinine Ratio % Glucose (75-100) mg/dL Lactic Acid 2.30 H* (0.7-2.0) mmol/L Calcium (8.4-10.2) mg/dL Total Bilirubin (0.1-1.2) mg/dL AST (5-40) units/L ALT (7-56) units/L Alkaline Phosphatase (35-129) units/L Troponin T 0.032 H (0.00-0.029) ng/mL NT-Pro-B Natriuret Pep (0-900) pg/mL Total Protein (6.3-8.2) g/dL Albumin (3.9-5) g/dL Albumin/Globulin Ratio % Triglycerides (2-149) mg/dL Cholesterol (50-199) mg/dL LDL Cholesterol Direct (50-130) mg/dL HDL Cholesterol (40-59) mg/dL Cholesterol/HDL Ratio % Urine Color Yellow (Yellow) Urine Turbidity Clear (Clear) Urine pH 5.0 (5.0-7.0) Ur Specific [place] 1.013 (1.003-1.030) Urine Protein <15 mg/dl (Negative) mg/dL Urine Glucose (UA) Neg (Negative) mg/dL Urine Ketones Neg (Negative) mg/dL Urine Blood Neg (Negative) Urine Nitrite Neg (Negative) Urine Bilirubin Neg (Negative) Urine Urobilinogen < 2.0 (<2.0) mg/dL Ur Leukocyte Esterase Neg (Negative) Urine WBC (Auto) < 1.0 (0.0-6.0) /HPF Urine RBC (Auto) < 1.0 (0.0-6.0) /HPF U Epithel Cells (Auto) < 1.0 (0-13.0) /HPF Urine Bacteria (Auto) 1+ (Negative) /HPF Urine Mucus Few /HPF 05/31/19 05/31/19 Range/Units 13:25 14:43 WBC (4.5-11.0) K/mm3 RBC (3.65-5.03) M/mm3 Hgb (11.8-15.2) gm/dl Hct (35.5-45.6) % MCV (84-94) fl MCH (28-32) pg MCHC (32-34) % RDW (13.2-15.2) % Plt Count (140-440) K/mm3 Lymph % (Auto) (13.4-35.0) % Moore % (Auto) (0.0-7.3) % Eos % (Auto) (0.0-4.3) % Baso % (Auto) (0.0-1.8) % Lymph # (1.2-5.4) K/mm3 Moore # (0.0-0.8) K/mm3 Eos # (0.0-0.4) K/mm3 Baso # (0.0-0.1) K/mm3 Seg Neutrophils % (40.0-70.0) % Seg Neutrophils # (1.8-7.7) K/mm3 PT (12.2-14.9) Sec. INR (0.87-1.13) APTT (24.2-36.6) Sec. D-Dimer (0-234) ng/mlDDU Sodium (137-145) mmol/L Potassium (3.6-5.0) mmol/L Chloride (98-107) mmol/L Carbon Dioxide (22-30) mmol/L Anion Gap mmol/L BUN (9-20) mg/dL Creatinine (0.8-1.5) mg/dL Estimated GFR ml/min BUN/Creatinine Ratio % Glucose (75-100) mg/dL Lactic Acid 2.40 H* 1.40 (0.7-2.0) mmol/L Calcium (8.4-10.2) mg/dL Total Bilirubin (0.1-1.2) mg/dL AST (5-40) units/L ALT (7-56) units/L Alkaline Phosphatase (35-129) units/L Troponin T (0.00-0.029) ng/mL NT-Pro-B Natriuret Pep (0-900) pg/mL Total Protein (6.3-8.2) g/dL Albumin (3.9-5) g/dL Albumin/Globulin Ratio % Triglycerides (2-149) mg/dL Cholesterol (50-199) mg/dL LDL Cholesterol Direct (50-130) mg/dL HDL Cholesterol (40-59) mg/dL Cholesterol/HDL Ratio % Urine Color (Yellow) Urine Turbidity (Clear) Urine pH (5.0-7.0) Ur Specific [place] (1.003-1.030) Urine Protein (Negative) mg/dL Urine Glucose (UA) (Negative) mg/dL Urine Ketones (Negative) mg/dL Urine Blood (Negative) Urine Nitrite (Negative) Urine Bilirubin (Negative) Urine Urobilinogen (<2.0) mg/dL Ur Leukocyte Esterase (Negative) Urine WBC (Auto) (0.0-6.0) /HPF Urine RBC (Auto) (0.0-6.0) /HPF U Epithel Cells (Auto) (0-13.0) /HPF Urine Bacteria (Auto) (Negative) /HPF Urine Mucus /HPF - EKG Data -: EKG Interpreted by [place] - EKG Data Interpretation: other (irregularly irregular atrial field) - Radiology Data Radiology results: report reviewed - Medical Decision Making Patient's initial blood pressure was 75/42 systolic protocol initiated and normal saline was given with increase of his blood pressure 9459 Patient was given IV Lasix Stress the patient with and the patient is instructed to a [facility] VQ scan was done for elevated d-dimer CTA cannot be done due to the patient's GFR Lactic acid improved with IV fluids The 2nd troponin was lower than the previous one Critical Care Time: Yes Critical care time in (mins) excluding proc time.: 45 Critical care attestation.: If time is entered above; I have spent that time in minutes in the direct care of this critically ill patient, excluding procedure time. ED Disposition Clinical Impression: Syncope, CHF (congestive heart failure), Renal insufficiency, Hypotension Disposition: DC/TX-70 ANOTHER TYPE HLTHCARE Is pt being admited?: No Does the pt Need Aspirin: No Condition: Fair Instructions: Syncope (ED) Referrals: PRIMARY CARE, [Primary Care Provider] - 3-5 Days
--- NOTE | 2019-05-31 11:20 | XRay Report ---
CHEST 1 VIEW INDICATION: syncope,AFIB. COMPARISON: 04/18/2019 FINDINGS: Support devices: None. Heart: Upper limits of normal and unchanged compared to the previous exam. Pulmonary vasculature: Normal. Lungs/Pleura: The lungs are normally expanded and clear. No pleural effusion. Additional findings: None. IMPRESSION: Borderline cardiomegaly with no acute change. Signer Name: Shadi Aldana MD Signed: 05/31/2019 11:16 AM Workstation Name: [id number]
[2019-05-31] MEDS ORDERED: NACL 0.9% 1000 ML 1,000 ML IV ONE ×2 (11:25→17:45)
[2019-05-31] MEDS ORDERED: MAXIPIME/NS 1 GM/100 ML 1 GM/100 ML BAG IV ONE (11:26)
--- NOTE | 2019-05-31 11:27 | Cat Scan Report ---
CT HEAD WITHOUT CONTRAST INDICATION / CLINICAL INFORMATION: syncope. TECHNIQUE: All CT scans at this location are performed using CT dose reduction for ALARA by means of automated e xposure control. COMPARISON: Head CT 04/03/2019 and January 31 10/03/2008. MRI brain 04/08/2019. FINDINGS: HEMORRHAGE: No evidence of intracranial hemorrhage or extra-axial fluid collection. EXTRA-AXIAL SPACES: Cortical sulci and sylvian fissures are normal in size. Basilar cisterns have an unremarkable appearance. VENTRICULAR SYSTEM: The third and lateral ventricles are enlarged out of proportion to the cortical s ulci. This probably reflects the presence of central greater than cortical atrophy. The temporal horn s of the lateral ventricles are mildly dilated. Communicating hydrocephalus cannot be excluded. Findi ngs are stable since 04/03/2019. Ventricular size has increased since 02/02/2009. CEREBRAL PARENCHYMA: Periventricular and deep white matter lucency is observed. This is probably seco ndary to microvascular ischemic change. There is no indication of recent infarction. No areas of ence phalomalacia are identified. MIDLINE SHIFT OR HERNIATION: There is no mass effect. CEREBELLUM / BRAINSTEM: Brainstem and cerebellum have an unremarkable appearance. INTRACRANIAL VESSELS:Calcified atherosclerotic plaque is present along the course of the cavernous se gments of both internal carotid arteries. Similar findings are seen at the distal vertebral arteries. ORBITS: visualized portions of the orbits have an unremarkable appearance. SOFT TISSUES of HEAD: No significant abnormality. CALVARIUM: Evaluation of bone windows reveals no abnormalities. PARANASAL SINUSES / MASTOID AIR CELLS: Paranasal sinuses are free from inflammatory mucosal disease. Mastoid air cells are normally pneumatized. IMPRESSION: 1. Ventriculomegaly with enlargement of the third and lateral ventricles. Differential diagnosis incl udes central greater than cortical atrophy greater than expected for age 58 years versus communicatin g hydrocephalus. Findings are stable compared to head CT dated 04/03/2019. Ventricular size is increas ed in comparison to remote study 02/02/2009. 2. No acute intracranial abnormality. Signer Name: Osvaldo Rodriguez MD Signed: 05/31/2019 11:22 AM Workstation Name: [id number]
[2019-05-31 12:03] LABS: Basophils # (Auto) 0.1 K/mm3 (0.0-0.1); Basophils % (Auto) 1.2 % (0.0-1.8); Eosinophils # (Auto) 0.1 K/mm3 (0.0-0.4); Eosinophils % (Auto) 1.6 % (0.0-4.3); Hematocrit 30.6 % (35.5-45.6); Hemoglobin 10.1 gm/dl (11.8-15.2); Lymphocytes % (Auto) 26.7 % (13.4-35.0); Mean Corpuscular HGB Conc 33 % (32-34); Mean Corpuscular Volume 93 fl (84-94); Monocytes # (Auto) 0.5 K/mm3 (0.0-0.8); Monocytes % (Auto) 6.3 % (0.0-7.3); Platelet Count 269 K/mm3 (140-440); Red Blood Count 3.29 M/mm3 (3.65-5.03); Red Cell Distribution Width 15.3 % (13.2-15.2)
[2019-05-31 12:15] LABS: INR 1.05 (0.87-1.13)
[2019-05-31 12:16] LABS: Partial Thromboplastin Time 25.9 Sec. (24.2-36.6)
[2019-05-31 12:30] LABS: Albumin 3.9 g/dL (3.9-5); Calcium 9.4 mg/dL (8.4-10.2)
[2019-05-31 13:15] LABS: Bacteria,Urine 1+ /HPF (Negative); Bilirubin,Urine NEG (Negative); Blood,Urine NEG (Negative); Color,Urine Yellow (Yellow); Mucus,Urine FEW /HPF; Protein,Urine <15 mg/dL mg/dL (Negative); RBC,Urine < 1.0 /HPF (0.0-6.0); Urobilinogen,Urine < 2.0 mg/dL (<2.0); WBC,Urine < 1.0 /HPF (0.0-6.0)
[2019-05-31 14:23] LABS: Chol/HDL Ratio 3.35 %
--- NOTE | 2019-05-31 16:12 | Nuclear Medicine Report ---
NUCLEAR MEDICINE VENTILATION/PERFUSION LUNG SCAN INDICATION: syncope with elevated d dimer. TECHNIQUE: 15.61 mCi of Xe-133 were given by inhalation. 3.98 mCi of Tc-99m MAA were given by IV. COMPARISON: Chest radiograph dated 05/31/2019. FINDINGS: VENTILATION: No significant ventilation defects. PERFUSION: No significant perfusion defects. ADDITIONAL FINDINGS: None. IMPRESSION: Low probability for pulmonary embolism. Signer Name: Alexander Candelario MD Signed: 05/31/2019 4:08 PM Workstation Name: [id number]
[2019-05-31] MEDS ORDERED: LASIX IV ONE (17:40)
[2019-05-31] MEDS ORDERED: BABY ASPIRIN PO ONE (17:41)
[2019-05-31 21:46] VITALS: BP 102/64
== END 2019-05-31 21:45 | disposition other institution (70) ==
LOC: ED 09:50
DX: I50.9 Heart failure, unspecified (principal); N28.9 Disorder of kidney and ureter, unspecified; I95.9 Hypotension, unspecified; J44.9 Chronic obstructive pulmonary disease, unspecified; I10 Essential (primary) hypertension; E78.00 Pure hypercholesterolemia, unspecified; E11.9 Type 2 diabetes mellitus without complications; Z90.49 Acquired absence of other specified parts of digestive tract; Z79.899 Other long term (current) drug therapy
CPT/HCPCS: 36415; 70450; 71045; 78582; 80053; 80061; 81001; 82140; 83880; 84484; 85025; 85379; 85610; 85730; 87040; 93005; 93010; 96361; 96365; 96375; 99291; A9540; A9558; J0692; J1940; J7030